=== PATIENT | male | born 1945 | race Two or more races ===

== ENCOUNTER 2024-06-16 16:38 | Inpatient (IN) | payer OTHER, MEDICAID, MEDICARE, SELFPAY ==
[2024-06-16] VITALS (10 sets, daily range): BP systolic 121–138; BP diastolic 79–86; PULSE 103–131; RESP 20–29; TEMP 37.2–39.3; O2SAT 85–94; BMI 27.2
--- NOTE | 2024-06-16 17:43 | EKG_ITS ---
[facility] Test Date: 2024-06-16 Pat Name: ARELY PAL Department: Room: - Gender: Male Switcher: : 1945 Requested By: Yayo Moses Order Number: [id number] Reading MD: Yayo Moses Measurements Intervals [place] Rate: 107 P: 15 SC: 138 QRS: -46 QRSD: 88 T: 33 QT: 334 QTc: 446 Interpretive Statements SINUS TACHYCARDIA WITH FREQUENT SUPRAVENTRICULAR PREMATURE COMPLEXES No previous ECG available for comparison /store/[email or web address]/[id number].pdf
--- NOTE | 2024-06-16 17:44 | XR_ITS ---
Examination: AP chest single view Technique one AP portable upright chest single view Exam date and time: June 16, 2024 at 1757 hrs. Indications: Sepsis today Findings: Normal heart size Moderate vascular congestion Opacity left base consistent with early pneumonia Moderate osteopenia Impression: Early pneumonia left base
--- NOTE | 2024-06-16 17:47 | EDNOTE_ITS ---
<Statement entered by Tasha Vu MD - 06/17/24 18:03> As co-signing physician, I was present and available for consult prn. I concur with the plan and care as documented by the midlevel provider. ED General RME/HPI General Chief complaint: Neuro Symptoms/Deficit Stated complaint: AMS Time Seen by Provider: 06/16/24 17:40 Arrival date/time: 06/16/24 16:38 RME / HPI RME / HPI narrative: 79-year-old male patient with significant history of CVA, with right-sided paralysis, 3 months ago was brought in from correction regarding altered mental status. Apparently patient was noted to be having altered, incident few minutes prior to ER visit severity moderate. Patient was noted to be febrile and tachycardic, sepsis sepsis alert was initiated right away. Patient was also noted to be coughing and having chest congestion. Denies any other complaints. Patient is alert and oriented x 2. No medications given prior travel. Patient was satting 86% on room air. Patient is DNR. Patient had a PEG tube feeding. Related Data Home Medications ?Medication ?Instructions ?Recorded ?Confirmed Hydrocodone/Acetaminophen * (NORCO 1 tab PO Q6H PRN PAIN #0 tabs 06/24/16 10/325 *) Meclizine CHEW * (ANTIVERT CHEW *) 25 mg PO PRN PRN DIZZINESS #0 tabs 06/24/16 captopril 25 mg tablet 25 mg PO BID #0 tabs 06/24/16 oxcarbazepine 600 mg tablet 600 mg PO BID #0 tabs 06/24/16 (Trileptal) Allergies Allergy/AdvReac Type Severity Reaction Status Date / Time NKA* Allergy Uncoded 06/08/16 15:00 Review of Systems Review of Systems Narrative Review of Systems: Review of system reviewed and within normal limits except mentioned in HPI ED Exam Narrative Physical exam: VITAL SIGNS: Reviewed. GENERAL APPEARANCE: Alert and oriented x 2, follows simple commands, no acute distress, HEAD AND FACE: Non-traumatic. ENT: PERRL, pink conjunctivitis, eyelid no trauma, Mucous membrane moist. NECK: Supple, nontender, no nuchal rigidity. CHEST: No tenderness, no crepitus, no paradoxical movement, no retractions. LUNGS: Clear, well ventilated, symmetric, no rales, no wheezing, no ronchi, no stridor, good breath sounds bilaterally. HEART: Regular rate, regular rhythm, no murmur, no gallops. ABDOMEN: Soft, positive bowel sounds, nondistended, no guarding, nontender, no rebound, no masses, RECTAL: Deferred. GENITAL: Deferred. NEUROLOGICAL: Gross motor function intact sensory function intact, Appropriate for age. MUSCULOSKELETAL: low back nontender, full range of motion. EXTREMITIES: Right upper and lower extremity with teleneurologist paralysis, left upper and lower extremity full range of motion. SKIN: Color pink, dry, no rash, no lacerations, no abrasions, no contusions. LYMPHATICS: Deferred. Course Quality Measures none Orders Category Date Time Status COVID-19 Screening Questionnaire NOW Care 06/16/24 21:53 Active Home Care Attendant STAT Care 06/16/24 17:43 Active Continuous Pulse Oximetry STAT Care 06/16/24 17:43 Completed Decision to Admit X1 Care 06/16/24 21:52 Active EKG (ED ONLY) *Do not use* NOW Care 06/16/24 17:43 Completed In and Out Catheter X1PRN Care 06/16/24 17:43 Completed Insert IV NOW Care 06/16/24 17:43 Active NPO STAT Care 06/16/24 17:43 Active Strict Intake and Output Routine Care 06/16/24 17:[address] head/brain wo con Stat Exams 06/16/24 19:43 Completed EKG (ED Only) Stat Exams 06/16/24 17:43 Draft XR chest 1V SEPSIS PROTOCOL Stat Exams 06/16/24 17:44 Completed B-Type Natriuretic Peptide Stat Lab 06/16/24 17:56 Completed Blood Culture (Lab) Stat Lab 06/16/24 17:43 Ordered CBC Stat Lab 06/16/24 17:56 Completed Comprehensive Metabolic Panel Stat Lab 06/16/24 17:56 Completed LDH (Lactate Dehydrogenase) Stat Lab 06/16/24 17:56 Completed Lactate (Lactic Acid) Stat Lab 06/16/24 17:56 Completed Lactic Acid, 3 HR Stat Lab 06/16/24 21:00 Ordered Lipase Stat Lab 06/16/24 17:56 Completed Magnesium Stat Lab 06/16/24 17:56 Completed Partial Thromboplastin Time Stat Lab 06/16/24 17:56 Completed Phosphorous Stat Lab 06/16/24 17:56 Completed Procalcitonin Stat Lab 06/16/24 17:56 Completed Prothrombin Time with INR Stat Lab 06/16/24 17:56 Completed Troponin I Stat Lab 06/16/24 17:56 Completed Urinalysis Stat Lab 06/16/24 20:30 Completed Urine Culture Stat Lab 06/16/24 20:30 Received ALBUTEROL RT 0.5ml [Proventil Rt 0.5ml] Med 06/16/24 20:09 Discontinued 2.5 mg INH X1 ONE Acetaminophen Supp [Tylenol Supp] Med 06/16/24 17:46 Discontinued 650 mg MT X1 ONE Sodium Chloride 0.9% 1000 ml [Ns] 1,000 ml Med 06/16/24 17:46 Discontinued IV 999 mls/hr Sodium Chloride Rt Gisele 0.9% [NS Rt Gisele 0.9%] Med 06/16/24 20:09 Active 3 ml INH PRN PRN cefTRIAXone/D5w 1gm IV premix [Rocephin/D5w 1gm IV Med 06/16/24 17:46 Discontinued premix] 50 ml IV X1 Code Status Routine Oth 06/16/24 17:51 Ordered Oxygen Delivery NOW RT 06/16/24 17:43 Active Vital Signs Vital signs: Vital Signs Temperature 100.8 F H 06/16/24 17:08 Pulse Rate 127 H 06/16/24 17:08 Respiratory Rate 22 H 06/16/24 17:08 Blood Pressure 138/81 H 06/16/24 17:08 Pulse Oximetry (%) 92 L 06/16/24 17:08 Oxygen Delivery Method Nasal Cannula 06/16/24 17:08 Oxygen Flow Rate 6 06/16/24 17:08 [facility] Patient data External records reviewed:: None Clinical information provided by:: patient and family Social determinants that could affect healthcare access:: none Patient has the following chronic illnesses:: Hypertension, CVA with right-sided paralysis How is presenting disease/condition affected by chronic disease/condition?: e xacerbated by Evaluation data The following diagnostics were reviewed and interpreted by me:: lab results and radiology exam(s) Lab and/or radiology exams considered but not ordered:: None Interpretation Summary: EKG showed sinus tachycardia, ventricular rate 107 bpm, no ST segment elevation depression noted. Chest x-ray showed pneumonia. Laboratory workup came back with slightly elevated lactic acid, WBC count of 17.7 magnesium 2.7 troponin slightly elevated 0.068. CT of the head came back unremarkable. Medications Medications considered but not ordered:: None Medication administrations:: Medication Administration History Sodium Chloride (Sodium Chloride Rt Gisele 0.9% 3 Ml Nebu) 3 ml INH PRN PRN PRN Reason: SOLN Stop: 07/16/24 20:08 Last Admin: 06/16/24 20:18 Dose: 3 ml Documented By: KEVIN Discontinued Medications Acetaminophen (Acetaminophen Supp 650 Mg Supp) 650 mg MT X1 ONE Stop: 06/16/24 17:47 Last Admin: 06/16/24 18:20 Dose: 650 mg Documented By: MICHELL Albuterol (Albuterol Rt 2.5 Mg/0.5 Ml Nebu) 2.5 mg INH X1 ONE Stop: 06/16/24 20:10 Last Admin: 06/16/24 20:18 Dose: 2.5 mg Documented By: KEVIN Ceftriaxone Sodium/Dextrose (Rocephin/D5w 1gm Iv Premix) 50 mls @ 100 mls/hr IV X1 ONE Stop: 06/16/24 18:15 Last Infusion: 06/16/24 19:29 Dose: Infused Documented By: Admin: 06/16/24 18:21 Dose: 100 mls/hr Documented By: MICHELL Sodium Chloride (Ns) 1,000 mls @ 999 mls/hr IV .Q1H1M ONE Stop: 06/16/24 18:46 Last Infusion: 06/16/24 19:29 Dose: Infused Documented By: Admin: 06/16/24 18:20 Dose: 999 mls/hr Documented By: MICHELL IV fluids for hydration ceftriaxone IV, albuterol breathing treatment Tylenol Consultations Consultation(s) initiated? (list below): No Diagnosis Differential Diagnosis ED Complaint MDM: Sepsis, pneumonia, UTI Most likely diagnosis given after review of the tests above:: Sepsis, pneumonia, history of CVA Admission Indicated Admission indicated?: indicated Explain why admission is indicated or not indicated:: Patient is to be admitted for further management. Admission Request Was there a request for admission?: Yes Admission Attestation Admission request attestation: Discussed case with [Dr. Lafleur] from Hospitalist service regarding admission. Discussed patients ED course, exam findings, labs, and radiology results. The Hospitalist [agrees] to accept the patient for admission. Disposition Plan Disposition Plan: Admit Medical Decision Making MDM Narrative MDM Narrative: 79-year-old male patient with significant history of CVA, with right-sided paralysis, 3 months ago was brought in from correction regarding altered mental status. Apparently patient was noted to be having altered, incident few minutes prior to ER visit severity moderate. Patient was noted to be febrile and tachycardic, sepsis sepsis alert was initiated right away. Patient was also noted to be coughing and having chest congestion. Denies any other complaints. Patient is alert and oriented x 2. No medications given prior travel. Patient was satting 86% on room air. Patient is DNR. Patient had a PEG tube feeding. CT scan of the head came back unremarkable. Chest x-ray showed early pneumonia. Laboratory workup significant for 17.7 leukocytosis. Lactic acid was noted to be 2.5. Initial troponin was noted to be 0.068. Currently patient is satting 92% on 4 L. Urinalysis no UTI Was given IV fluid, Tylenol suppository, IV ceftriaxone and IV Zithromax. Patient was also given albuterol breathing treatment. Plan of care discussed with the patient and family who agrees to be admitted. Differential Diagnosis Differential Diagnosis: Sepsis, pneumonia, UTI Lab Data 06/16/24 17:56 06/16/24 17:56 Labs: Lab Results 06/16/24 06/16/24 Range/Units 17:56 20:30 WBC 17.7 H (3.8-10.6) Thou/mm3 RBC 4.92 (4.50-5.90) Miln/mm3 Hgb 15.2 (13.5-16.0) g/dL Hct 44.9 (41.0-53.0) % MCV 91 (80-100) fL MCH 30.9 (25.0-35.0) pg MCHC 33.9 (31.0-37.0) g/dl RDW Std Deviation 47.8 H (35.1-43.9) fL Plt Count 283 (140-440) Thou/mm3 Neut % (Auto) 79 (37-80) % Lymph % (Auto) 15 (10-50) % Roosevelt % (Auto) 6 (0-12) % Eos % (Auto) 0 (0-10) % Baso % (Auto) 0 (0-2.5) % Neut # (Auto) 13.9 H (1.8-7.7) Thou/mm3 Lymph # (Auto) 2.6 (1.0-4.8) Thou/mm3 Roosevelt # (Auto) 1.0 H (0.0-0.8) Thou/mm3 Eos # (Auto) 0.0 (0.0-0.5) Thou/mm3 Baso # (Auto) 0.0 (0.0-0.2) Thou/mm3 Immature Gran # (Auto) 0.16 H (0.00-0.00) Thou/mm3 Absolute Nucleated RBC 0.00 (0.00-0.00) Thou/mm3 Immature Gran % 1 H (0-0) % Nucleated RBC % 0 (0) /100 WBC PT 12.7 H (9.0-12.2) Seconds INR 1.2 (0.9-1.3) APTT 30.3 (22.0-36.0) Seconds Sodium 154 H (136-145) mMol/L Potassium 3.7 (3.4-5.1) mMol/L Chloride 118 H (98-107) mMol/L Carbon Dioxide 24.5 (20.0-31.0) mMol/L Anion Gap 12 (7-16) BUN 44 H (9-23) mg/dL Creatinine 1.3 (0.6-1.3) mg/dL Estim Creat Clear Calc 48.4 L (>60) mL/min eGFR 56 L (60 - ) See Note BUN/Creatinine Ratio 34 H (12-20) Ratio Glucose 236 H (74-106) mg/dL Calculated Osmolality 324 H (275-295) Lactic Acid 2.5 H (0.4-2.0) mMol/L Calcium 9.8 (8.3-10.6) mg/dL Corrected Calcium 9.8 (8.5-10.1) mg/dL Phosphorus 3.0 (2.4-5.1) mg/dL Magnesium 2.7 H (1.6-2.6) mg/dL Total Bilirubin 0.6 (0.3-1.2) mg/dL AST 14 (0-34) U/L ALT 17 (10-49) U/L Alkaline Phosphatase 63 (46-116) U/L Lactate Dehydrogenase 203 (120-246) U/L Troponin I 0.068 H* (0.0-0.045) ng/mL B-Natriuretic Peptide 39 (0-100) pg/mL Total Protein 7.9 (5.7-8.2) gm/dL Albumin 4.2 (3.4-4.8) gm/dL Globulin 3.7 H (2.3-3.5) gm/dL Albumin/Globulin Ratio 1.1 L (1.2-2.2) Lipase 95 H (12-53) U/L Procalcitonin 0.28 (0.0-0.49) ng/ml Ur Collection Type Clean Catch Urine Color Yellow (Lt Yel-Yel) Urine Clarity Clear (Clear/Hazy) Urine pH 6.0 (5.0-7.0) Ur Specific Evans 1.034 (1.001-1.035) Urine Protein 1+ A (Neg - Trace) Urine Glucose (UA) Negative (Negative) Urine Ketones Negative (Negative) Urine Blood Negative (Negative) Urine Nitrite Negative (Negative) Urine Bilirubin Negative (Negative) Urine Urobilinogen (Auto) 2.0 (0.0-1.0) mg/dL Ur Leukocyte Esterase Negative (Negative) Urine RBC 0 (0-3) /hpf Urine WBC 0 (0-5) /hpf Ur Squamous Epith Cells < 1 (0-5) /hpf Urine Bacteria Rare (None) Discharge Plan Plan Patient Disposition: Admit Acute Care w/in Hospital Disposition Comment: stable Prescriptions/Referrals Prescriptions/Med Rec: No Action captopril 25 MG tablet 25 mg PO BID Qty: 0 oxcarbazepine [Trileptal] 600 MG tablet 600 mg PO BID Qty: 0 Hydrocodone/Acetaminophen * (NORCO 10/325 *) 1 TAB tablet 1 tab PO Q6H PRN (Reason: PAIN) Qty: 0 Meclizine CHEW * (ANTIVERT CHEW *) 25 MG TAB.CHEW 25 mg PO PRN PRN (Reason: DIZZINESS) Qty: 0 Referrals: Fabian Rashid MD [Primary Care Provider] - In 1 week Problem List Clinical Impression: Sepsis, Pneumonia, History of CVA with residual deficit Patient/Caregiver Discharge Instructions Discharge Activity: activity as tolerated Print Language: Danish Stand Alone Forms: Bina Award Info., Patient Portal Info Letter
[2024-06-16 18:03] LABS: Lactate (Lactic Acid) 2.5 mMol/L (0.4-2.0)
[2024-06-16 18:08] LABS: Basophils % (Auto) 0 % (0-2.5); Eosinophils % (Auto) 0 % (0-10); Hematocrit 44.9 % (41.0-53.0); Hemoglobin 15.2 g/dL (13.5-16.0); Immature Granulocytes % (Auto) 1 % (0-0); Immature Granulocytes Auto 0.16 Thou/mm3 (0.00-0.00); Lymphocytes # (Auto) 2.6 Thou/mm3 (1.0-4.8); Lymphocytes % (Auto) 15 % (10-50); Mean Corpuscular HGB Conc 33.9 g/dl (31.0-37.0); Mean Corpuscular Hemoglobin 30.9 pg (25.0-35.0); Mean Corpuscular Volume 91 fL (80-100); Monocytes % (Auto) 6 % (0-12); Neutrophils # (Auto) 13.9 Thou/mm3 (1.8-7.7); Neutrophils % (Auto) 79 % (37-80); Nucleated Red Blood Cell % 0 /100 WBC (0); Platelet Count 283 Thou/mm3 (140-440); RDW Standard Deviation 47.8 fL (35.1-43.9); Red Blood Count 4.92 Miln/mm3 (4.50-5.90); White Blood Count 17.7 Thou/mm3 (3.8-10.6)
[2024-06-16] MEDS: ACETAMINOPHEN SUPP 650 MG SUPP PR (18:20)
[2024-06-16] MEDS: SODIUM CHLORIDE 0.9% 1000 ML 1,000 ML 999 ML IV (18:20)
[2024-06-16] MEDS: cefTRIAXone/D5w 1gm IV premix 50 ML IV (18:21)
[2024-06-16 18:24] LABS: INR 1.2 (0.9-1.3); Partial Thromboplastin Time 30.3 Seconds (22.0-36.0); Prothrombin Time 12.7 Seconds (9.0-12.2)
[2024-06-16 18:35] LABS: B-Type Natriuretic Peptide 39 pg/mL (0-100)
[2024-06-16 18:44] LABS: Alanine Aminotransferase 17 U/L (10-49); Albumin, Serum 4.2 gm/dL (3.4-4.8); Albumin/Globulin Ratio 1.1 (1.2-2.2); Alkaline Phosphatase 63 U/L (46-116); Anion Gap 12 (7-16); Aspartate Amino Transferase 14 U/L (0-34); BUN/Creatinine Ratio 34 Ratio (12-20); Bilirubin,Total 0.6 mg/dL (0.3-1.2); Blood Urea Nitrogen 44 mg/dL (9-23); Calcium 9.8 mg/dL (8.3-10.6); Calcium (Corrected) 9.8 mg/dL (8.5-10.1); Carbon Dioxide 24.5 mMol/L (20.0-31.0); Chloride 118 mMol/L (98-107); Creatinine (Component) 1.3 mg/dL (0.6-1.3); Estimated Creatinine Clearance 48.4 mL/min (>60); Globulin 3.7 gm/dL (2.3-3.5); Glucose 236 mg/dL (74-106); LDH (Lactate Dehydrogenase) 203 U/L (120-246); Lipase 95 U/L (12-53); Magnesium 2.7 mg/dL (1.6-2.6); Osmolality,Calculated 324 (275-295); Potassium 3.7 mMol/L (3.4-5.1); Procalcitonin 0.28 ng/ml (0.0-0.49); Sodium 154 mMol/L (136-145); Total Protein 7.9 gm/dL (5.7-8.2); eGFR 56 See Note
[2024-06-16 18:47] LABS: Troponin I 0.068 ng/mL (0.0-0.045)
--- NOTE | 2024-06-16 19:43 | XR_ITS ---
Examination: CT brain head without contrast. 2-D sagittal coronal reconstructions Date and time of exam:June 16, 2024 at 1946 hrs. Indications: Onset altered mental status today CTDI: vol (mGy):50.7 DLP: (mGycm):1204 Technique: Multiple CT axial sections of the brain have been obtained, 5 mm slice thickness. Contrast has not been administered. 2-D sagittal, coronal reconstructions have been obtained Low dose protocols were performed. One or more of the following dose reduction techniques were used; automated exposure control, adjustment of the mA and/or KV according to patient size, use of iterative reconstruction technique. Findings: No significant ventricular enlargement. Old infarct left basal ganglia 10 mm low-density area left brainstem pontine level Intra-axial or extra-axial hemorrhage density is not seen. No mass effect or midline shift Basal cisterns are not remarkable. Fourth ventricle is midline. Cranial vault intact. Impression: Negative for acute hemorrhage, mass effect or midline shift Age indeterminate infarct left brainstem pontine level axial image 34 Consider brain MRI follow-up, stroke,
[2024-06-16] MEDS: ALBUTEROL RT 2.5 MG/0.5 ML NEBU INH (20:18)
[2024-06-16] MEDS: SODIUM CHLORIDE RT SOL 0.9% 3 ML NEBU INH (20:18)
[2024-06-16 21:00] LABS: Reflex Lactate? Y
[2024-06-16 21:02] LABS: Collection Type, Urine Clean Catch; RBC,Urine 0 /hpf (0-3); WBC,Urine 0 /hpf (0-5)
[2024-06-16 21:30] LABS: Bacteria,Urine Rare; Bilirubin,Urine Negative (Negative); Blood,Urine Negative (Negative); Clarity,Urine Clear (Clear/Hazy); Color,Urine Yellow (Lt Yel-Yel); Glucose, Urine Negative (Negative); Ketones,Urine Negative (Negative); Leukocyte Esterase,Urine Negative (Negative); Nitrite,Urine Negative (Negative); Protein,Urine 1+ (Neg - Trace); Specific Gravity,Urine 1.034 (1.001-1.035); Squamous Epithelial Cell,Urine < 1 /hpf (0-5)
[2024-06-16 22:10] LABS: Lactic Acid, 3 HR 1.6 mMol/L (0.4-2.0)
[2024-06-16] MEDS: ACETAMINOPHEN IVPB 1,000 MG/100 ML VIAL 250 MG IV (22:57)
--- NOTE | 2024-06-16 23:19 | PD.RESHP ---
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 Patient currently alert and oriented to self and birthdate, unknown baseline. Patient unable to give much history but is arousable to voice and interactable. Patient initially had rectal temp 102.8, noted to be saturating 90% on room air with lower base crackles. Most of history obtained via chart review. Of note there is a POLST form in the chart which is signed on 05/29/2024 and states that the patient is DNR with [facility] selected. A three-way call was made before the admission with official commercial relationship manager with the listed legally recognized decision-maker, Meme Dey, daughter of the patient. On the phone call Marquita Aguilar, the patient's , was also present. The family was explained the present situation which brought the patient to the hospital and his current condition. They decided that they would like to have the patient admitted and treated for pneumonia. He will remain DNR. Also of note, patient has a PEG tube despite no artificial means of nutrition on POLST being selected. It is uncertain whether the family understood this selection at the time of POLST signing. They may need to update the POLST. Will continue with tube feeds per family's current wishes. ED Course: -Initial vitals were BP 138/81, HR 127, RR 22, Temp 100.8, O2 92% -Labs significant for WBC 17.7, Na 154, Cl 118, BUN 44, glucose 324, lactic acid 2.5->1.6, troponin 0.068, procalcitonin 0.28 normal -EKG showed sinus tachycardia with frequent PVCs -CXR showed moderate vascular congestion and early left base pneumonia -Head CT showed age indeterminate infarct in the left brainstem at pontine level, likely the known stroke 3 months ago -In the ED, patient was given 1L NS IV bolus x1, acetaminophen 650 mg CO x1, ceftriaxone 1g IV x1, albuterol 2.5 mg breathing treatment -Patient was admitted for sepsis secondary to pneumonia Review of Systems Review of systems otherwise negative except what is mentioned above. Past Medical History Past Medical History Comments H COMMENT: Past Medical History: CVA 03/2024 with right-sided hemiplegia and aphasia deficits, dyphagia s/p PEG tube placement, history of PE, GERD, coccidioidomycosis, hypertension Family History: Not obtainable Surgical History: PEG tube placement Social History: Not obtainable Current Medications: Eliquis 5 mg BID, aspirin 325 mg qday, atorvastatin 80 mg qday, atorvastatin 80 mg qday, fenofibrate 145 mg qday, oxcarbazepine 300 mg BID, fluconazole 200 mg qday, amlodipine 10 mg qday, famotidine 20 mg qday, melatonin 3 mg HS prn, acetaminophen 650 mg prn, tramadol 50 mg prn, docusate 100 mg prn (Source: [facility] medication reconciliation) Allergies: No known drug allergies Exam Vital Signs Temp Pulse Resp BP Pulse Ox O2 Del Method O2 Flow Rate 100.4 F 106 H 22 H 132/82 H 93 L Nasal Cannula 4 06/16/24 22:38 06/16/24 22:38 06/16/24 22:38 06/16/24 22:38 06/16/24 22:38 06/16/24 22:38 06/16/24 22:38 Narrative Exam Physical Exam General: Asleep but arousable to voice. Speaks short phrases in Tongan. HEENT: Normocephalic, atraumatic, mucous membranes moist. Heart: Tachycardic rate and regular rhythm, no murmurs. Lungs: Bilateral lower lobe pulmonary crackles. Abdomen: Soft, nondistended, nontender, positive bowel sounds. ?No guarding or rebound tenderness. PEG tube in place with some dry discharge, no surrounding erythema or purulence. Neurologic: Alert and oriented x2, right-sided deficits at baseline, able to move left upper and lower extremities. Extremities: Mild right-sided dependent edema. Skin: No rash or ecchymoses. Results: Labs 06/25/24 05:12 06/25/24 05:12 Labs: Short CBC 06/16/24 Range/Units 17:56 WBC 17.7 H (3.8-10.6) Thou/mm3 Hgb 15.2 (13.5-16.0) g/dL Hct 44.9 (41.0-53.0) % Plt Count 283 (140-440) Thou/mm3 BMP 06/16/24 17:56 Sodium 154 H Potassium 3.7 Chloride 118 H Carbon Dioxide 24.5 BUN 44 H Creatinine 1.3 Glucose 236 H Calcium 9.8 Cardiac Enzymes 06/16/24 Range/Units 17:56 Troponin I 0.068 H* (0.0-0.045) ng/mL Liver Function 06/16/24 Range/Units 17:56 Total Bilirubin 0.6 (0.3-1.2) mg/dL AST 14 (0-34) U/L ALT 17 (10-49) U/L Alkaline Phosphatase 63 (46-116) U/L Albumin 4.2 (3.4-4.8) gm/dL Urine 06/16/24 Range/Units 20:30 Urine Color Yellow (Lt Yel-Yel) Urine Clarity Clear (Clear/Hazy) Urine pH 6.0 (5.0-7.0) Ur Specific [place] 1.034 (1.001-1.035) Urine Protein 1+ A (Neg - Trace) Urine Glucose (UA) Negative (Negative) Quality Measures Quality Measures none Advance care planning discussed with:: spouse and child Medications Home Medications and Allergies Home Medications ?Medication ?Instructions ?Recorded ?Confirmed ?Type amlodipine 10 mg tablet 10 mg feeding tube QDAY 06/17/24 06/17/24 History apixaban 5 mg tablet (Eliquis) 5 mg feeding tube BID 06/17/24 06/17/24 History aspirin 325 mg tablet 325 mg feeding tube QDAY 06/17/24 06/17/24 History atorvastatin 80 mg tablet (Lipitor) 80 mg feeding tube QDAY 06/17/24 06/17/24 History docusate sodium 100 mg tablet 100 mg PO QDAY 06/17/24 06/17/24 History famotidine 20 mg tablet 20 mg feeding tube QDAY 06/17/24 06/17/24 History fenofibrate nanocrystallized 145 145 mg QDAY 06/17/24 06/17/24 History mg tablet fluconazole 200 mg tablet 200 mg feeding tube QDAY 06/17/24 06/17/24 History guaifenesin 600 mg tablet, 600 mg PO Q12H 06/17/24 06/17/24 History extended release 12 hr melatonin 3 mg tablet 3 mg PO HS PRN Insomnia 06/17/24 06/17/24 History oxcarbazepine 300 mg tablet 300 mg feeding tube BID 06/17/24 06/17/24 History tramadol 50 mg tablet 50 mg feeding tube Q6H PRN pain 6-9 06/17/24 06/17/24 History Allergies Allergy/AdvReac Type Severity Reaction Status Date / Time No Known Allergies Allergy Verified 06/17/24 10:29 Visit Medications Acetaminophen (Ofirmev Inj) 1,000 mg in 100 mls @ 250 mls/hr IV Q6HR RE Stop: 06/17/24 18:23 Last Admin: 06/16/24 22:57 Dose: 250 mls/hr Sodium Chloride (Sodium Chloride Rt Gisele 0.9% 3 Ml Nebu) 3 ml INH PRN PRN PRN Reason: SOLN Stop: 07/16/24 20:08 Last Admin: 06/16/24 20:18 Dose: 3 ml Discontinued Medications Acetaminophen (Acetaminophen Supp 650 Mg Supp) 650 mg CO X1 ONE Stop: 06/16/24 17:47 Last Admin: 06/16/24 18:20 Dose: 650 mg Albuterol (Albuterol Rt 2.5 Mg/0.5 Ml Nebu) 2.5 mg INH X1 ONE Stop: 06/16/24 20:10 Last Admin: 06/16/24 20:18 Dose: 2.5 mg Ceftriaxone Sodium/Dextrose (Rocephin/D5w 1gm Iv Premix) 50 mls @ 100 mls/hr IV X1 ONE Stop: 06/16/24 18:15 Last Infusion: 06/16/24 19:29 Dose: Infused Sodium Chloride (Ns) 1,000 mls @ 999 mls/hr IV .Q1H1M ONE Stop: 06/16/24 18:46 Last Infusion: 06/16/24 19:29 Dose: Infused Assessment & Plan Plan 79-year-old Tongan-speaking male with past medical 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 Patient was found to be septic secondary to pneumonia and admitted for further management. #Sepsis, secondary to community acquired pneumonia Patient met 4/4 SIRS criteria with leukocytosis, tachycardia, tachypnea, and fever, with source pneumonia. Patient was hypoxic, not previously on oxygen. UA was negative. Procal was negative. COVID negative. -Started ceftriaxone 1 g IV qday -Started azithromycin 500 mg qday -DuoNebs ipratropium and levalbuterol q6h scheduled -Blood cultures pending -Sputum culture ordered -MRSA screen pending -RSV, flu ordered -Chest physiotherapy -Titrate oxygen as tolerated to maintain saturations >93% #Hypernatremia On admission sodium was 154, osmolality quite high at 324. Possibly secondary to dehydration. Patient did get 1L NS in ED. Free water deficit is calculated at 4.3L. -D5W at 140 ml/hr with q6h glucose checks -Q4h sodium checks -Resume tube feeds with free water flushes in AM #Hyperglycemia Initial glucose 236. No listed history of diabetes in patient's SNF chart. -A1c pending -Bedside blood glucose checks q6h -Insulin sliding scale sensitive, adjusted as necessary #Elevated troponin #Likely NSTEMI type 2 demand ischemia On ED evaluation troponin 0.068, likely secondary to sepsis. EKG no ST-T abnormalities -Trend troponin AM level #History of coccidioidomycosis Patient has fluconazole 200 mg qday listed as home medication, started on admission to the SNF on 05/29/2024 and listed as precribed for 6 month course. -Continue fluconazole 200 mg qday -Obtain Cocci IgM and IgG with titers #History of CVA with right sided residual deficits Head CT shows old stroke in the left brainstem pontine area consistent with patient's current baseline neurologic status. -Continue home aspirin 81 mg qday -Continue home atorvastatin 80 mg HS -Lipid panel ordered #History of hypertension On amlodipine 10 qday. -Hold home medication due to sepsis, resume if BP become elevated #History of PE Unknown when patient was diagnosed with PE. -Continue home Eliquis 5 mg BID #Dysphagia s/p G-tube placement Placed after patient had stroke 3 months back resulting in residual dysphagia. -Consulted electrician control equipment -Resume tube feeds in AM per facility, patient on Jevity with 240 ml free water flushes q6h DVT prophylaxis: Eliquis 5 mg BID GI prophylaxis: Pantoprazole 40 mg IV daily Diet: NPO, tube feeds to be resumed [place]h: None Lines: Peripheral IV Antibiotics: Ceftriaxone [06/16- ], azithromycin [06/17- ] CODE STATUS: DNR per POLST and current family wishes, continue with selective treatments. Reason for hospitalization: Sepsis secondary to community acquired pneumonia Patient plan of care was discussed with the attending physician, Dr. Martin. Candida Lafleur, PGY-2 Attending Provider Attestation/Addendum I have discussed and was present for the essential components of the history, physical examination, diagnosis, and treatment plan with the resident. I agree with the patient's care as documented by the resident and amended herein by me. Matthias Martin DO. Although this document has been carefully reviewed, there may still be some phonetic and other typographical errors. These errors are purely grammatical due to imperfections in the software program and should not be construed in any way to compromise the substance of the patient's medical care during this visit.
[2024-06-17] VITALS (13 sets, daily range): BP systolic 119–154; BP diastolic 74–114; PULSE 75–110; RESP 17–26; TEMP 36.2–36.8; O2SAT 90–100; BMI 27.2
[2024-06-17 00:40] LABS: Sodium 156 mMol/L (136-145)
[2024-06-17] MEDS: AZITHROMYCIN INJ 500 MG in SODIUM CHLORIDE 0.9% 250 ML 250 ML 250 MG IV (00:55)
[2024-06-17] MEDS: APIXABAN 2.5 MG TABLET 5 MG GT ×3 (00:56→20:16)
[2024-06-17] MEDS: INSULIN LISPRO (AdmeLOG) 1 UNIT/0.01 ML UNIT SC ×5 (00:56→23:44)
[2024-06-17] MEDS: LEVALBUTEROL RT 0.63 MG/3 ML NEBU INH ×4 (01:05→18:40)
[2024-06-17] MEDS: IPRATROPIUM RT 0.5 MG/ 2.5 ML NEBU INH ×4 (01:05→18:40)
--- NOTE | 2024-06-17 01:32 | PC.RT ---
Attempted to perform sputum induction w/10% saline but pt would not allow mask near his face or even blow-by. After numerous attempts at giving him his tx's I stopped trying. Maybe if pt is more alert he will be more willing to take the tx's and the sputum induction can be successfully done.
[2024-06-17 04:09] LABS: Basophils % (Auto) 0 % (0-2.5); Eosinophils % (Auto) 0 % (0-10); Hematocrit 41.9 % (41.0-53.0); Immature Granulocytes % (Auto) 1 % (0-0); Immature Granulocytes Auto 0.07 Thou/mm3 (0.00-0.00); Lymphocytes # (Auto) 2.5 Thou/mm3 (1.0-4.8); Lymphocytes % (Auto) 18 % (10-50); Mean Corpuscular HGB Conc 33.4 g/dl (31.0-37.0); Mean Corpuscular Hemoglobin 30.9 pg (25.0-35.0); Mean Corpuscular Volume 93 fL (80-100); Monocytes # (Auto) 0.8 Thou/mm3 (0.0-0.8); Monocytes % (Auto) 6 % (0-12); Neutrophils # (Auto) 10.4 Thou/mm3 (1.8-7.7); Neutrophils % (Auto) 75 % (37-80); Nucleated Red Blood Cell % 0 /100 WBC (0); Platelet Count 241 Thou/mm3 (140-440); Red Blood Count 4.53 Miln/mm3 (4.50-5.90); White Blood Count 13.8 Thou/mm3 (3.8-10.6)
[2024-06-17 04:32] LABS: Glucose Estimated Average 108 mg/dL (80-131); Hemoglobin A1C 5.4 % Hgb (4.8-6.0)
[2024-06-17 04:36] LABS: Anion Gap 9 (7-16); BUN/Creatinine Ratio 42 Ratio (12-20); Blood Urea Nitrogen 42 mg/dL (9-23); Calcium 9.3 mg/dL (8.3-10.6); Carbon Dioxide 26.3 mMol/L (20.0-31.0); Cardiac Risk Estimate 3.9 RATIO (4.0-6.7); Chloride 121 mMol/L (98-107); Cholesterol 112 mg/dL (132-200); Estimated Creatinine Clearance 62.9 mL/min (>60); Glucose 179 mg/dL (74-106); HDL Cholesterol 29 mg/dL (40-60); LDL Cholesterol,Calculated 55 mg/dL (0-130); Magnesium 2.6 mg/dL (1.6-2.6); Osmolality,Calculated 323 (275-295); Phosphorous 3.7 mg/dL (2.4-5.1); Potassium 3.6 mMol/L (3.4-5.1); Sodium 156 mMol/L (136-145); Triglycerides 139 mg/dL (30-150); eGFR > 60 See Note
[2024-06-17 04:42] LABS: Troponin I 0.059 ng/mL (0.0-0.045)
[2024-06-17] MEDS: DEXTROSE 5%-WATER 1,000 ML 140 ML IV ×3 (04:57→22:42)
[2024-06-17] MEDS: ACETAMINOPHEN IVPB 1,000 MG/100 ML VIAL 250 MG IV ×3 (05:39→18:22)
[2024-06-17] MEDS: PANTOPRAZOLE INJ 40 MG VIAL IVP (08:01)
[2024-06-17] MEDS: FAMOTIDINE 20 MG TABLET GT (08:01)
--- NOTE | 2024-06-17 09:57 | XR_ITS ---
Examination: AP chest single view Technique one AP portable upright chest single view Exam date and time: June 17, 2024 at 1009 hrs. Comparison June 16, 2024 Findings: The film is rotated RPO The remaining findings suspicious for mild left base pneumonia No major cardiac enlargement Ectatic thoracic aorta Moderate osteopenia Impression: The remaining findings suspicious for mild left base pneumonia
[2024-06-17] MEDS: ASPIRIN 81 MG CHEW GT (10:08)
[2024-06-17] MEDS: FLUCONAZOLE SUSP 40 MG/ML ML 200 MG GT (10:08)
[2024-06-17 10:18] LABS: Allen Test Performed/OK; Base Excess 1 (-3-3); HCO3 25 mEq/L (20-26); Inspired O2, VO2 Liters 5 L/min; Inspired Oxygen, FIO2 21 %; O2 Saturation 96 % (91-98); PCO2 35 mmHg (32.0-48.0); PO2 73 mmHg (83-108); Puncture Site Right Radial; pH, Arterial 7.46 (7.35-7.45)
--- NOTE | 2024-06-17 11:10 | PC.SS ---
Patient is a resident at [facility]. Patient was admitted for sepsis/pneumonia. SS spoke to daughter, Rosario, who confirmed she is the alt medical decision maker for patient. Patient will return to facility upon discharge. Patient has a peg tube. POLST form indicates DNR. Patient has blood cultures pending per physician. Hx: CVA. Patient will need gurney transport upon discharge. Dr. Rashid is PCP at facility.
[2024-06-17 11:12] LABS: Respiratory Syncytial Virus Ag Negative (Negative)
[2024-06-17 11:13] LABS: Influenza A Ag Negative; Influenza B Ag Negative
[2024-06-17 14:45] LABS: Sodium 153 mMol/L (136-145)
[2024-06-17 14:46] LABS: Cocci Serology, IgM Negative (Negative)
--- NOTE | 2024-06-17 15:03 | PD.RESPRO ---
Documentation for date of: 06/17/24 Subjective Subjective Interval history: No overnight events. Patient seen and examined at bedside. Initially patient was increasingly altered, responsive to pain, not verbally communicative. Able to localize pain. Patient had episode of desaturation requiring O2 via oxy mask at 15 L/min. Condition self resolved, patient able to be titrated back down to 5 L/min, saturating above 92%. ABG and chest x-ray unremarkable. Patient was examined later that day, A&O x 2, appropriately responsive. Continue D5W, sodium checks for hypernatremia. Continue IV antibiotics. Exam Vital Signs Temp Pulse Resp BP Pulse Ox O2 Del Method O2 Flow Rate 98 F 96 23 H 124/75 92 L Oxy Mask 10 06/17/24 12:00 06/17/24 12:38 06/17/24 12:38 06/17/24 12:00 06/17/24 12:38 06/17/24 12:00 06/17/24 12:38 Narrative Exam PE: Gen: Well-developed and well-nourished. HEENT: NCAT, PERRLA, EOMI, MMM, anicteric conjunctivae. CVS: normal S1 and S2. RRR. No M/R/G. Resp: Mild crackles lateral lower lung loaj. Abd: soft, non-tender, non-distended. BS+ in all 4 quadrants. MSK: Good ROM in LUE & LLE. No edema or rash. Neuro: CN II-XII grossly intact. Strength 5/5 in LUE & LLE. Alert and oriented x2. Right-sided deficits, baseline. Psych: appropriate mood and affect. Objective Labs 06/17/24 03:53 06/17/24 16:46 Labs: Laboratory Results - last 24 hr 06/16/24 06/16/24 06/16/24 17:56 20:30 21:50 WBC 17.7 H RBC 4.92 Hgb 15.2 Hct 44.9 MCV 91 MCH 30.9 MCHC 33.9 RDW Std Deviation 47.8 H Plt Count 283 Neut % (Auto) 79 Lymph % (Auto) 15 [place] % (Auto) 6 Eos % (Auto) 0 Baso % (Auto) 0 Neut # (Auto) 13.9 H Lymph # (Auto) 2.6 [place] # (Auto) 1.0 H Eos # (Auto) 0.0 Baso # (Auto) 0.0 Immature Gran # (Auto) 0.16 H Absolute Nucleated RBC 0.00 Immature Gran % 1 H Nucleated RBC % 0 PT 12.7 H INR 1.2 APTT 30.3 Puncture Site ABG pH ABG pCO2 ABG pO2 ABG HCO3 ABG O2 Saturation ABG Base Excess Oxygen Liter Flow FiO2 Sodium 154 H Potassium 3.7 Chloride 118 H Carbon Dioxide 24.5 Anion Gap 12 BUN 44 H Creatinine 1.3 Estim Creat Clear Calc 48.4 L eGFR 56 L BUN/Creatinine Ratio 34 H Glucose [address] Glu mg/dL Hemoglobin A1c Calculated Osmolality 324 H Lactic Acid 2.5 H 1.6 Calcium 9.8 Corrected Calcium 9.8 Phosphorus 3.0 Magnesium 2.7 H Total Bilirubin 0.6 AST 14 ALT 17 Alkaline Phosphatase 63 Lactate Dehydrogenase 203 Troponin I 0.068 H* B-Natriuretic Peptide 39 Total Protein 7.9 Albumin 4.2 Globulin 3.7 H Albumin/Globulin Ratio 1.1 L Triglycerides Cholesterol LDL Cholesterol, Calc HDL Cholesterol Cholesterol/HDL Ratio Lipase 95 H Procalcitonin 0.28 Ur Collection Type Clean Catch Urine Color Yellow Urine Clarity Clear Urine pH 6.0 Ur Specific [place] 1.034 Urine Protein 1+ A Urine Glucose (UA) Negative Urine Ketones Negative Urine Blood Negative Urine Nitrite Negative Urine Bilirubin Negative Urine Urobilinogen (Auto) 2.0 Ur Leukocyte Esterase Negative Urine RBC 0 Urine WBC 0 Ur Squamous Epith Cells < 1 Urine Bacteria Rare Coccidioides IgM Ab Influenza A (Rapid) Influenza B (Rapid) RSV Rapid 06/16/24 06/17/24 06/17/24 23:52 03:53 10:10 WBC 13.8 H RBC 4.53 Hgb 14.0 Hct 41.9 MCV 93 MCH 30.9 MCHC 33.4 RDW Std Deviation 48.0 H Plt Count 241 D Neut % (Auto) 75 Lymph % (Auto) 18 [place] % (Auto) 6 Eos % (Auto) 0 Baso % (Auto) 0 Neut # (Auto) 10.4 H Lymph # (Auto) 2.5 [place] # (Auto) 0.8 Eos # (Auto) 0.0 Baso # (Auto) 0.0 Immature Gran # (Auto) 0.07 H Absolute Nucleated RBC 0.00 Immature Gran % 1 H Nucleated RBC % 0 PT INR APTT Puncture Site Right Radial ABG pH 7.46 H ABG pCO2 35 ABG pO2 73 L ABG HCO3 25 ABG O2 Saturation 96 ABG Base Excess 1 Oxygen Liter Flow 5 FiO2 21 Sodium 156 H 156 H Potassium 3.6 Chloride 121 H* Carbon Dioxide 26.3 Anion Gap 9 BUN 42 H Creatinine 1.0 Estim Creat Clear Calc 62.9 eGFR > 60 BUN/Creatinine Ratio 42 H Glucose [address] Glu mg/dL 108 Hemoglobin A1c 5.4 Calculated Osmolality 323 H Lactic Acid Calcium 9.3 Corrected Calcium Phosphorus 3.7 Magnesium 2.6 Total Bilirubin AST ALT Alkaline Phosphatase Lactate Dehydrogenase Troponin I 0.059 H* B-Natriuretic Peptide Total Protein Albumin Globulin Albumin/Globulin Ratio Triglycerides 139 Cholesterol 112 L LDL Cholesterol, Calc 55 HDL Cholesterol 29 L Cholesterol/HDL Ratio 3.9 L Lipase Procalcitonin Ur Collection Type Urine Color Urine Clarity Urine pH Ur Specific [place] Urine Protein Urine Glucose (UA) Urine Ketones Urine Blood Urine Nitrite Urine Bilirubin Urine Urobilinogen (Auto) Ur Leukocyte Esterase Urine RBC Urine WBC Ur Squamous Epith Cells Urine Bacteria Coccidioides IgM Ab Negative Influenza A (Rapid) Influenza B (Rapid) RSV Rapid 06/17/24 06/17/24 10:23 13:28 WBC RBC Hgb Hct MCV MCH MCHC RDW Std Deviation Plt Count Neut % (Auto) Lymph % (Auto) [place] % (Auto) Eos % (Auto) Baso % (Auto) Neut # (Auto) Lymph # (Auto) [place] # (Auto) Eos # (Auto) Baso # (Auto) Immature Gran # (Auto) Absolute Nucleated RBC Immature Gran % Nucleated RBC % PT INR APTT Puncture Site ABG pH ABG pCO2 ABG pO2 ABG HCO3 ABG O2 Saturation ABG Base Excess Oxygen Liter Flow FiO2 Sodium 153 H Potassium Chloride Carbon Dioxide Anion Gap BUN Creatinine Estim Creat Clear Calc eGFR BUN/Creatinine Ratio Glucose Estimated Ave Glu mg/dL Hemoglobin A1c Calculated Osmolality Lactic Acid Calcium Corrected Calcium Phosphorus Magnesium Total Bilirubin AST ALT Alkaline Phosphatase Lactate Dehydrogenase Troponin I B-Natriuretic Peptide Total Protein Albumin Globulin Albumin/Globulin Ratio Triglycerides Cholesterol LDL Cholesterol, Calc HDL Cholesterol Cholesterol/HDL Ratio Lipase Procalcitonin Ur Collection Type Urine Color Urine Clarity Urine pH Ur Specific [place] Urine Protein Urine Glucose (UA) Urine Ketones Urine Blood Urine Nitrite Urine Bilirubin Urine Urobilinogen (Auto) Ur Leukocyte Esterase Urine RBC Urine WBC Ur Squamous Epith Cells Urine Bacteria Coccidioides IgM Ab Influenza A (Rapid) Negative Influenza B (Rapid) Negative RSV Rapid Negative ABG Interpretation ABG results: 06/17/24 10:10 ABG pH 7.46 H ABG pCO2 35 ABG pO2 73 L ABG HCO3 25 ABG O2 Saturation 96 ABG Base Excess 1 Quality Measures Quality Measures none Advance care planning discussed with:: patient Assessment & Plan Assessment Current Active Medications: Generic Name Dose Route Start Last Admin Trade Name Freq PRN Reason Stop Dose Admin Acetaminophen 650 mg 06/17/24 18:00 Acetaminophen Gisele 325 Mg/10 Ml Udc GT 07/17/24 17:59 Q6HR PRN Pain 1-10 Or Fever > 100.4 Apixaban 5 mg 06/16/24 23:45 06/17/24 08:01 Apixaban 2.5 Mg Tablet GT 07/16/24 23:44 5 mg BID RE Administration Aspirin 81 mg 06/17/24 09:30 06/17/24 10:08 Aspirin 81 Mg Chew GT 07/17/24 09:29 81 mg QDAY RE Administration Atorvastatin Calcium 80 mg 06/17/24 21:00 Atorvastatin Calcium 20 Mg Tablet GT 07/17/24 20:59 HS RE Azithromycin 500 mg 06/17/24 21:00 Azithromycin 250 Mg Tablet PO 06/20/24 23:33 HS RE Dextrose 25 ml 06/16/24 23:43 Dextrose 50%-Water Inj 50 Ml Syringe IV 07/16/24 23:42 Q15MIN PRN BG 50-70 responsive npo pt Dextrose 50 ml 06/16/24 23:43 Dextrose 50%-Water Inj 50 Ml Syringe IV 07/16/24 23:42 Q15MIN PRN BG <50 OR BG <70 & pt unresponsive Fluconazole 200 mg 06/17/24 09:00 06/17/24 10:08 Fluconazole Susp 40 Mg/Ml Ml GT 06/24/24 08:59 200 mg QDAY RE Administration Glucagon 1 mg 06/16/24 23:43 Glucagon Inj 1 Mg Vial IM Q15MIN PRN BG <70, and no IV access Acetaminophen 1,000 mg in 100 mls @ 250 mls/hr 06/16/24 22:46 06/17/24 11:33 Ofirmev Inj IV 06/17/24 18:23 250 mls/hr Q6HR RE Administration Ceftriaxone Sodium/Dextrose 50 mls @ 100 mls/hr 06/17/24 21:00 Rocephin/D5w 1gm Iv Premix IV 06/24/24 20:59 QDAY@2100 RE Dextrose 1,000 mls @ 140 mls/hr 06/17/24 04:48 06/17/24 14:22 D5w IV 07/17/24 04:47 140 mls/hr .Q7H9M RE Administration Insulin Glargine 10 unit 06/17/24 21:00 Insulin Glargine (Lantus) 5 Unit/0.05 Ml (Per 5 Units) SC 07/17/24 20:59 HS RE Insulin Human Lispro 0 unit 06/17/24 00:00 06/17/24 11:33 Insulin Lispro (Admelog) 1 Unit/0.01 Ml Unit SC 07/17/24 00:00 2 unit Q6HR RE Administration Protocol Ipratropium [place] 0.5 mg 06/17/24 01:00 06/17/24 12:37 Ipratropium Rt 0.5 Mg/ 2.5 Ml Nebu INH 07/17/24 00:59 0.5 mg Q6HRRT RE Administration Levalbuterol HCl 0.63 mg 06/17/24 01:00 06/17/24 12:37 Levalbuterol Rt 0.63 Mg/3 Ml Nebu INH 07/17/24 00:59 0.63 mg Q6HRRT RE Administration Ondansetron HCl 4 mg 06/16/24 23:14 Ondansetron Inj 2 Mg/Ml Inj 2 Ml IV 07/16/24 23:13 Q6H PRN NAUSEA OR VOMITING Protocol Pantoprazole Sodium 40 mg 06/17/24 09:00 06/17/24 08:01 Pantoprazole Inj 40 Mg Vial IVP 07/17/24 08:59 40 mg QDAY RE Administration Sodium Chloride 3 ml 06/16/24 20:09 06/16/24 20:18 Sodium Chloride Rt Gisele 0.9% 3 Ml Nebu INH 07/16/24 20:08 3 ml PRN PRN Administration SOLN Plan 79-year-old Yi-speaking male with 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 #Sepsis, secondary to community acquired pneumonia Patient met 4/4 SIRS criteria with leukocytosis, tachycardia, tachypnea, and fever, with source pneumonia. Patient was hypoxic, not previously on oxygen. UA was negative. Procal was negative. COVID negative. Flu and RSV negative. -Started ceftriaxone 1 g IV qday -Started azithromycin 500 mg qday -DuoNebs ipratropium and levalbuterol q6h scheduled -Blood cultures pending, sputum culture pending -MRSA screen pending -Chest physiotherapy -Titrate oxygen as tolerated to maintain saturations >93% #Hypernatremia On admission sodium was 154, osmolality quite high at 324. Possibly secondary to dehydration. Patient did get 1L NS in ED. Free water deficit is calculated at 4.3L. -D5W at 140 ml/hr with q6h glucose checks -Q4h sodium checks -Consider resuming tube feeds with free water flushes #Hyperglycemia Initial glucose 236. No listed history of diabetes in patient's SNF chart. A1c 5.4% -Bedside blood glucose checks q6h -Insulin sliding scale sensitive, adjusted as necessary #NSTEMI type 2 demand ischemia On ED evaluation troponin 0.068, likely secondary to sepsis. EKG no ST-T abnormalities. Troponin peaked at 0.068. -Telemonitoring, med/telemetry #History of coccidioidomycosis Patient has fluconazole 200 mg qday listed as home medication, started on admission to the SNF on 05/29/2024 and listed as precribed for 6 month course. Cocci IgM negative 06/16/24. -Continue fluconazole 200 mg qday #History of CVA with right sided residual deficits Head CT shows old stroke in the left brainstem pontine area consistent with patient's current baseline neurologic status. -Continue home aspirin 81 mg qday -Continue home atorvastatin 80 mg HS #History of hypertension On amlodipine 10 qday. -Hold home medication due to sepsis, resume if BP become elevated #History of PE Unknown when patient was diagnosed with PE. -Continue home Eliquis 5 mg BID #Dysphagia s/p G-tube placement Placed after patient had stroke 3 months back resulting in residual dysphagia. Per facility, patient on Jevity with 240 ml free water flushes q6h. -Consulted health plan specialist -Consider resuming tube feeds DVT prophylaxis: Eliquis GI prophylaxis: Protonix Diet: N.p.o. Lines: Peripheral IV Code status: DNR Plan of care discussed with attending Dr. Barron. Jcarlos Aguayo MD PGY?1 Attending Provider Attestation/Addendum I have examined the patient, reviewed labs and imaging findings, discussed the case with the resident(s), and reviewed entered orders. I agree with the plan of care as outlined in this note, with these additional summaries/recommendations: Patient seen at bedside. Patient admitted overnight for sepsis secondary to community-acquired pneumonia. Chest x-ray showed pneumonia left base. Patient received fluid resuscitation in the ED and evidence of endorgan damage with KARY. We will continue IV Rocephin and azithromycin. Blood, urine, and sputum cultures taken, follow-up results when available. Continue Tylenol as needed for fever. Leukocytosis improving. Lactic acidosis present on admission has now resolved. Patient was found to have hyperosmolar hypernatremia most likely secondary to dehydration. Likely more acute than chronic. Sodium 153 this morning and we will continue D5W at 140 cc/h and continue to trend sodium. We will also consult dietary to resume tube feeds and free water flushes recommendations. Patient has history of CVA with right-sided residual deficits and PEG tube placement. 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 Continue basal bolus insulin for diabetes mellitus type 2. Continue home aspirin, atorvastatin, and Eliquis for history of CVA. Troponin elevated on admission although likely secondary to demand ischemia in the setting of sepsis. Troponin peaked at 0.068 and has downtrended. Continue to monitor. Repeat hematology and chemistry panel in AM. Dr. Barron
[2024-06-17 17:13] LABS: Sodium 152 mMol/L (136-145)
[2024-06-17] MEDS: INSULIN GLARGINE (Lantus) 5 UNIT/0.05 ML (PER 5 UNITS) 10 UNIT SC (20:14)
[2024-06-17] MEDS: AZITHROMYCIN 250 MG TABLET 500 MG PO (20:15)
[2024-06-17] MEDS: cefTRIAXone/D5w 1gm IV premix 50 ML IV (20:16)
[2024-06-17] MEDS: ATORVASTATIN CALCIUM 20 MG TABLET 80 MG GT (20:16)
[2024-06-17 21:23] LABS: Sodium 150 mMol/L (136-145)
[2024-06-18] VITALS (11 sets, daily range): BP systolic 114–127; BP diastolic 71–82; PULSE 72–94; RESP 14–97; TEMP 36.6–36.8; O2SAT 93–100; BMI 27.1
[2024-06-18] MEDS: LEVALBUTEROL RT 0.63 MG/3 ML NEBU INH ×4 (00:50→19:21)
[2024-06-18] MEDS: IPRATROPIUM RT 0.5 MG/ 2.5 ML NEBU INH ×4 (00:50→19:21)
[2024-06-18 01:20] LABS: Sodium 150 mMol/L (136-145)
[2024-06-18] MEDS: ACETAMINOPHEN SOL 325 MG/10 ML UDC 650 MG GT ×3 (05:00→21:21)
[2024-06-18] MEDS: INSULIN LISPRO (AdmeLOG) 1 UNIT/0.01 ML UNIT SC (05:12)
[2024-06-18] MEDS: DEXTROSE 5%-WATER 1,000 ML 140 ML IV (05:32)
[2024-06-18 06:12] LABS: Basophils % (Auto) 0 % (0-2.5); Eosinophils # (Auto) 0.2 Thou/mm3 (0.0-0.5); Eosinophils % (Auto) 2 % (0-10); Hematocrit 36.6 % (41.0-53.0); Hemoglobin 12.2 g/dL (13.5-16.0); Immature Granulocytes % (Auto) 0 % (0-0); Immature Granulocytes Auto 0.04 Thou/mm3 (0.00-0.00); Lymphocytes % (Auto) 22 % (10-50); Mean Corpuscular HGB Conc 33.3 g/dl (31.0-37.0); Mean Corpuscular Volume 93 fL (80-100); Monocytes # (Auto) 0.5 Thou/mm3 (0.0-0.8); Monocytes % (Auto) 5 % (0-12); Neutrophils # (Auto) 6.4 Thou/mm3 (1.8-7.7); Neutrophils % (Auto) 71 % (37-80); Nucleated Red Blood Cell % 0 /100 WBC (0); Platelet Count 204 Thou/mm3 (140-440); RDW Standard Deviation 47.1 fL (35.1-43.9); Red Blood Count 3.94 Miln/mm3 (4.50-5.90)
[2024-06-18 06:42] LABS: Anion Gap 9 (7-16); BUN/Creatinine Ratio 39 Ratio (12-20); Blood Urea Nitrogen 31 mg/dL (9-23); Calcium 8.6 mg/dL (8.3-10.6); Carbon Dioxide 25.2 mMol/L (20.0-31.0); Chloride 114 mMol/L (98-107); Creatinine (Component) 0.8 mg/dL (0.6-1.3); Estimated Creatinine Clearance 78.6 mL/min (>60); Glucose 153 mg/dL (74-106); Magnesium 2.4 mg/dL (1.6-2.6); Osmolality,Calculated 303 (275-295); Phosphorous 2.8 mg/dL (2.4-5.1); Potassium 3.2 mMol/L (3.4-5.1); Sodium 148 mMol/L (136-145); eGFR > 60 See Note
[2024-06-18] MEDS: PANTOPRAZOLE INJ 40 MG VIAL IVP (08:47)
[2024-06-18] MEDS: APIXABAN 2.5 MG TABLET 5 MG GT ×2 (08:47→21:22)
[2024-06-18] MEDS: ASPIRIN 81 MG CHEW GT (08:47)
[2024-06-18] MEDS: FLUCONAZOLE SUSP 40 MG/ML ML 200 MG GT (08:47)
[2024-06-18 09:48] LABS: Sodium 146 mMol/L (136-145)
[2024-06-18] MEDS: POTASSIUM CHLORIDE 10% 20 MEQ/15 ML UDC 40 MEQ GT (10:34)
[2024-06-18] MEDS: DOXYCYCLINE INJ 100 MG in SODIUM CHLORIDE 0.9% (P) 100 ML IV ×2 (10:34→22:23)
--- NOTE | 2024-06-18 10:37 | PC.SS ---
SS follow up note; Tube feeds today. Cultures pending.
--- NOTE | 2024-06-18 11:55 | PCS.ST ---
Clinical swallow Evaluation completed. See report for details. Improved swallow function. Recommend VFSS to r/o silent aspiration and assess pharyngeal function.
--- NOTE | 2024-06-18 13:35 | ESPR_ITS ---
<Statement entered by Zachariah George MD - 06/18/24 14:21> Patient was seen and examined at the bedside this morning. Patient is more alert and was breathing well on 4 L NC. Will start tube feedings as per recommendations by dietitian. We are continuing with IV ceftriaxone and started on doxycycline as sputum cultures are 1 out of 2 blood cultures grew GPC. Will favor final cultures. Potassium was repleted as K was 3.2. Kidney functions remained stable. Will continue with current management. Although the patient was asking for food and we ordered speech and nurse swallow screen However patient has a PEG tube and will be started on PEG tube feeds. All labs and orders were reviewed. I saw and examined the patient, and I agree with current management stated by Dr Olivier MD,PGY1. Plan of care was discussed with the attending physician and resident physician. Disclaimer: Despite multiple revisions, due to the dictation software being used, the document bellow may not be free of grammatical errors including phonetic/typographic errors. However, this does not deter from our commitment to providing health care in the patient's best interest in mind. Dr. Doris MD, PGY 2 Documentation for date of: 06/18/24 Exam Vital Signs Temp Pulse Resp BP Pulse Ox O2 Del Method O2 Flow Rate 97.9 F 79 14 124/78 99 Room Air 3 06/18/24 12:00 06/18/24 12:58 06/18/24 12:58 06/18/24 12:00 06/18/24 12:58 06/18/24 12:00 06/18/24 12:58 Narrative Exam PE: Gen: Well-developed and well-nourished. HEENT: NCAT, PERRLA, EOMI, MMM, anicteric conjunctivae. CVS: normal S1 and S2. RRR. No M/R/G. Resp: Mild crackles lateral lower lung loja. Abd: soft, non-tender, non-distended. BS+ in all 4 quadrants. MSK: Good ROM in LUE & LLE. No edema or rash. Neuro: CN II-XII grossly intact. Strength 5/5 in LUE & LLE. Alert and oriented x2. Right-sided deficits, baseline. Psych: appropriate mood and affect. Objective Labs 06/19/24 04:50 06/19/24 04:50 Labs: Laboratory Results - last 24 hr 06/16/24 06/17/24 06/17/24 23:52 13:28 16:46 WBC RBC Hgb Hct MCV MCH MCHC RDW Std Deviation Plt Count Neut % (Auto) Lymph % (Auto) [place] % (Auto) Eos % (Auto) Baso % (Auto) Neut # (Auto) Lymph # (Auto) [place] # (Auto) Eos # (Auto) Baso # (Auto) Immature Gran # (Auto) Absolute Nucleated RBC Immature Gran % Nucleated RBC % Sodium 153 H 152 H Potassium Chloride Carbon Dioxide Anion Gap BUN Creatinine Estim Creat Clear Calc eGFR BUN/Creatinine Ratio Glucose Calculated Osmolality Calcium Phosphorus Magnesium Coccidioides IgM Ab Negative 06/17/24 06/18/24 06/18/24 21:02 00:58 05:07 WBC 9.0 RBC 3.94 L Hgb 12.2 L Hct 36.6 L MCV 93 MCH 31.0 MCHC 33.3 RDW Std Deviation 47.1 H Plt Count 204 D Neut % (Auto) 71 Lymph % (Auto) 22 [place] % (Auto) 5 Eos % (Auto) 2 Baso % (Auto) 0 Neut # (Auto) 6.4 Lymph # (Auto) 2.0 [place] # (Auto) 0.5 Eos # (Auto) 0.2 Baso # (Auto) 0.0 Immature Gran # (Auto) 0.04 H Absolute Nucleated RBC 0.00 Immature Gran % 0 Nucleated RBC % 0 Sodium 150 H 150 H 148 H Potassium 3.2 L Chloride 114 H Carbon Dioxide 25.2 Anion Gap 9 BUN 31 H Creatinine 0.8 Estim Creat Clear Calc 78.6 eGFR > 60 BUN/Creatinine Ratio 39 H Glucose 153 H Calculated Osmolality 303 H Calcium 8.6 Phosphorus 2.8 Magnesium 2.4 Coccidioides IgM Ab 06/18/24 08:51 WBC RBC Hgb Hct MCV MCH MCHC RDW Std Deviation Plt Count Neut % (Auto) Lymph % (Auto) [place] % (Auto) Eos % (Auto) Baso % (Auto) Neut # (Auto) Lymph # (Auto) [place] # (Auto) Eos # (Auto) Baso # (Auto) Immature Gran # (Auto) Absolute Nucleated RBC Immature Gran % Nucleated RBC % Sodium 146 H Potassium Chloride Carbon Dioxide Anion Gap BUN Creatinine Estim Creat Clear Calc eGFR BUN/Creatinine Ratio Glucose Calculated Osmolality Calcium Phosphorus Magnesium Coccidioides IgM Ab ABG Interpretation ABG results: 06/17/24 10:10 ABG pH 7.46 H ABG pCO2 35 ABG pO2 73 L ABG HCO3 25 ABG O2 Saturation 96 ABG Base Excess 1 Quality Measures Quality Measures VTE prophylaxis Advance care planning discussed with:: patient Assessment & Plan Assessment Current Active Medications: Generic Name Dose Route Start Last Admin Trade Name Freq PRN Reason Stop Dose Admin Acetaminophen 650 mg 06/18/24 04:59 06/18/24 05:00 Acetaminophen Gisele 325 Mg/10 Ml Udc GT 07/18/24 04:58 650 mg Q6HR PRN Administration Pain 1-10 Or Fever > 100.4 Apixaban 5 mg 06/16/24 23:45 06/18/24 08:47 Apixaban 2.5 Mg Tablet GT 07/16/24 23:44 5 mg BID RE Administration Aspirin 81 mg 06/17/24 09:30 06/18/24 08:47 Aspirin 81 Mg Chew GT 07/17/24 09:29 81 mg QDAY RE Administration Atorvastatin Calcium 80 mg 06/17/24 21:00 06/17/24 20:16 Atorvastatin Calcium 20 Mg Tablet GT 07/17/24 20:59 80 mg HS RE Administration Dextrose 25 ml 06/16/24 23:43 Dextrose 50%-Water Inj 50 Ml Syringe IV 07/16/24 23:42 Q15MIN PRN BG 50-70 responsive npo pt Dextrose 50 ml 06/16/24 23:43 Dextrose 50%-Water Inj 50 Ml Syringe IV 07/16/24 23:42 Q15MIN PRN BG <50 OR BG <70 & pt unresponsive Fluconazole 200 mg 06/17/24 09:00 06/18/24 08:47 Fluconazole Susp 40 Mg/Ml Ml GT 06/24/24 08:59 200 mg QDAY RE Administration Glucagon 1 mg 06/16/24 23:43 Glucagon Inj 1 Mg Vial IM Q15MIN PRN BG <70, and no IV access Ceftriaxone Sodium/Dextrose 50 mls @ 100 mls/hr 06/17/24 21:00 06/17/24 20:16 Rocephin/D5w 1gm Iv Premix IV 06/24/24 20:59 100 mls/hr QDAY@2100 RE Administration Doxycycline Hyclate 100 mg/ 100 mls @ 100 mls/hr 06/18/24 09:00 06/18/24 10:34 Sodium Chloride IV 06/25/24 08:59 100 mls/hr BID RE Administration Insulin Glargine 10 unit 06/17/24 21:00 06/17/24 20:14 Insulin Glargine (Lantus) 5 Unit/0.05 Ml (Per 5 Units) SC 07/17/24 20:59 10 unit HS RE Administration Insulin Human Lispro 0 unit 06/17/24 00:00 06/18/24 12:52 Insulin Lispro (Admelog) 1 Unit/0.01 Ml Unit SC 07/17/24 00:00 Not Given Q6HR RE Protocol Ipratropium Willis 0.5 mg 06/17/24 01:00 06/18/24 12:55 Ipratropium Rt 0.5 Mg/ 2.5 Ml Nebu INH 07/17/24 00:59 0.5 mg Q6HRRT RE Administration Levalbuterol HCl 0.63 mg 06/17/24 01:00 06/18/24 12:55 Levalbuterol Rt 0.63 Mg/3 Ml Nebu INH 07/17/24 00:59 0.63 mg Q6HRRT RE Administration Ondansetron HCl 4 mg 06/16/24 23:14 Ondansetron Inj 2 Mg/Ml Inj 2 Ml IV 07/16/24 23:13 Q6H PRN NAUSEA OR VOMITING Protocol Pantoprazole Sodium 40 mg 06/17/24 09:00 06/18/24 08:47 Pantoprazole Inj 40 Mg Vial IVP 07/17/24 08:59 40 mg QDAY RE Administration Sodium Chloride 3 ml 06/16/24 20:09 06/16/24 20:18 Sodium Chloride Rt Gisele 0.9% 3 Ml Nebu INH 07/16/24 20:08 3 ml PRN PRN Administration SOLN Plan 79-year-old [place]ian-speaking male with 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 #Sepsis, resolved #Community acquired pneumonia Patient met 4/4 SIRS criteria with leukocytosis, tachycardia, tachypnea, and fever, with source pneumonia. Patient was hypoxic, not previously on oxygen. UA was negative. Procal was negative. COVID negative. Flu and RSV negative. -Started ceftriaxone 1 g IV qday -Started azithromycin 500 mg qday -DuoNebs ipratropium and levalbuterol q6h scheduled -Blood cultures pending, sputum culture pending -MRSA screen pending -Chest physiotherapy -Titrate oxygen as tolerated to maintain saturations >93% #Hypernatremia On admission sodium was 154, osmolality quite high at 324. Possibly secondary to dehydration. Patient did get 1L NS in ED. Free water deficit is calculated at 4.3L. Patient received D5W at 140 ml/hr with q6h glucose checks. Sodium improved to 146, D5W was stopped. Patient resuming previous PEG tube diet with water flushes. -Q4h sodium checks -Resuming tube feeds with free water flushes #Hyperglycemia Initial glucose 236. No listed history of diabetes in patient's SNF chart. A1c 5.4% -Bedside blood glucose checks q6h -Insulin sliding scale sensitive, adjust as necessary #NSTEMI type 2 demand ischemia On ED evaluation troponin 0.068, likely secondary to sepsis. EKG no ST-T abnormalities. Troponin peaked at 0.068. -Telemonitoring, med/telemetry #History of coccidioidomycosis Patient has fluconazole 200 mg qday listed as home medication, started on admission to the SNF on 05/29/2024 and listed as precribed for 6 month course. Cocci IgM negative 06/16/24. Cocci IgG positive. -Continue fluconazole 200 mg qday #History of CVA with right sided residual deficits Head CT shows old stroke in the left brainstem pontine area consistent with patient's current baseline neurologic status. -Continue home aspirin 81 mg qday -Continue home atorvastatin 80 mg HS #History of hypertension On amlodipine 10 qday. -Hold home medication due to sepsis, resume if BP become elevated #History of PE Unknown when patient was diagnosed with PE. -Continue home Eliquis 5 mg BID #Dysphagia s/p G-tube placement Placed after patient had stroke 3 months back resulting in residual dysphagia. Per facility, patient on Jevity with 240 ml free water flushes q6h. -Consulted curing machine operator, appreciate recs -Resumed tube feeds DVT prophylaxis: Eliquis GI prophylaxis: Protonix Diet: PEG tube feeds Lines: Peripheral IV Code status: DNR Plan of care discussed with senior resident Dr. George PGY?[address] Barron. Jcarlos Aguayo MD PGY?1 Attending Provider Attestation/Addendum I have examined the patient, reviewed labs and imaging findings, discussed the case with the resident(s), and reviewed entered orders. I agree with the plan of care as outlined in this note, with these additional summaries/recommendations: Patient seen at bedside. No acute overnight events. Patient admitted for sepsis secondary to community-acquired pneumonia. Chest x-ray showed pneumonia left base. Patient received fluid resuscitation in the ED and evidence of endorgan damage with KARY. We will continue IV Rocephin and azithromycin. 1 of 2 blood cxs showing GPC although likely contamination. Urine culture pending. Sputum culture pending as well. Leukocytosis improving/resolving. Lactic acidosis present on admission has now resolved. Patient was found to have hyperosmolar hypernatremia most likely secondary to dehydration. Likely more acute than chronic. Sodium 146 this morning and we will discontinue D5W. Dietary following and patient resumed on tube feeds and free water flushes. Patient has history of CVA with right-sided residual deficits and PEG tube placement. 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 Continue basal bolus insulin for diabetes mellitus type 2. Continue home aspirin, atorvastatin, and Eliquis for history of CVA. Troponin elevated on admission although likely secondary to demand ischemia in the setting of sepsis. Troponin peaked at 0.068 and has downtrended. Continue to monitor. Repeat hematology and chemistry panel in AM. Dr. Barron
[2024-06-18 14:38] LABS: Cocci Serology, IgG Positive (Negative)
[2024-06-18 14:38] LABS: Cocid Sro, CF/ID (UCD) NO CHG* See Sep Rpt
[2024-06-18 14:39] LABS: Sodium 148 mMol/L (136-145)
[2024-06-18 17:59] LABS: Sodium 147 mMol/L (136-145)
[2024-06-18 20:11] LABS: Sodium 144 mMol/L (136-145)
[2024-06-18] MEDS: cefTRIAXone/D5w 1gm IV premix 50 ML IV (21:21)
[2024-06-18] MEDS: INSULIN GLARGINE (Lantus) 5 UNIT/0.05 ML (PER 5 UNITS) 10 UNIT SC (21:22)
[2024-06-18] MEDS: ATORVASTATIN CALCIUM 20 MG TABLET 80 MG GT (21:22)
[2024-06-18] MEDS: GABAPENTIN 100 MG CAPSULE GT (23:47)
[2024-06-19] VITALS (7 sets, daily range): BP systolic 122–146; BP diastolic 61–82; PULSE 72–93; RESP 18–26; TEMP 36.1–36.7; O2SAT 92–100
[2024-06-19] MEDS: IPRATROPIUM RT 0.5 MG/ 2.5 ML NEBU INH ×2 (00:19→06:26)
[2024-06-19] MEDS: LEVALBUTEROL RT 0.63 MG/3 ML NEBU INH ×2 (00:19→06:26)
[2024-06-19] MEDS: ACETAMINOPHEN SOL 325 MG/10 ML UDC 650 MG GT (03:38)
[2024-06-19 05:20] LABS: Creatinine,Random Urine 116 mg/dL (30-125); Potassium,Urine Random 42 mMol/L (12-62)
[2024-06-19 06:48] LABS: Basophils % (Auto) 0 % (0-2.5); Eosinophils # (Auto) 0.2 Thou/mm3 (0.0-0.5); Eosinophils % (Auto) 2 % (0-10); Hematocrit 34.9 % (41.0-53.0); Hemoglobin 12.5 g/dL (13.5-16.0); Immature Granulocytes % (Auto) 1 % (0-0); Immature Granulocytes Auto 0.05 Thou/mm3 (0.00-0.00); Lymphocytes # (Auto) 1.9 Thou/mm3 (1.0-4.8); Lymphocytes % (Auto) 21 % (10-50); Mean Corpuscular HGB Conc 35.8 g/dl (31.0-37.0); Mean Corpuscular Hemoglobin 32.8 pg (25.0-35.0); Mean Corpuscular Volume 92 fL (80-100); Monocytes # (Auto) 0.4 Thou/mm3 (0.0-0.8); Monocytes % (Auto) 4 % (0-12); Neutrophils # (Auto) 6.4 Thou/mm3 (1.8-7.7); Neutrophils % (Auto) 72 % (37-80); Nucleated Red Blood Cell % 0 /100 WBC (0); Platelet Count 228 Thou/mm3 (140-440); RDW Standard Deviation 44.7 fL (35.1-43.9); Red Blood Count 3.81 Miln/mm3 (4.50-5.90); White Blood Count 8.9 Thou/mm3 (3.8-10.6)
[2024-06-19 07:18] LABS: Anion Gap 9 (7-16); BUN/Creatinine Ratio 33 Ratio (12-20); Blood Urea Nitrogen 23 mg/dL (9-23); Calcium 8.8 mg/dL (8.3-10.6); Carbon Dioxide 22.8 mMol/L (20.0-31.0); Chloride 113 mMol/L (98-107); Creatinine (Component) 0.7 mg/dL (0.6-1.3); Estimated Creatinine Clearance 89.8 mL/min (>60); Glucose 147 mg/dL (74-106); Magnesium 2.2 mg/dL (1.6-2.6); Osmolality,Calculated 295 (275-295); Phosphorous 2.2 mg/dL (2.4-5.1); Potassium 3.7 mMol/L (3.4-5.1); Sodium 145 mMol/L (136-145); eGFR > 60 See Note
--- NOTE | 2024-06-19 08:50 | PC.NURSE ---
[facility] [employer] downtime occurred on 06/19/24 from 0100 to 0700.
[2024-06-19 09:01] LABS: Sodium 144 mMol/L (136-145)
[2024-06-19] MEDS: ASPIRIN 81 MG CHEW GT (09:23)
[2024-06-19] MEDS: APIXABAN 2.5 MG TABLET 5 MG GT ×2 (09:23→20:43)
[2024-06-19] MEDS: DOXYCYCLINE INJ 100 MG in SODIUM CHLORIDE 0.9% (P) 100 ML IV ×2 (09:23→20:57)
[2024-06-19] MEDS: PANTOPRAZOLE INJ 40 MG VIAL IVP (09:23)
[2024-06-19] MEDS: FLUCONAZOLE SUSP 40 MG/ML ML 200 MG GT (09:24)
[2024-06-19] MEDS: OXCARBazepine 150 MG TABLET (NON-FORMULARY) 300 MG PO ×2 (09:24→20:44)
[2024-06-19] MEDS: POTASSIUM PHOS 22.5 MMOL in SODIUM CHLORIDE 0.9% 500 ML 500 ML 82.778 MMOL IV (09:25)
[2024-06-19] MEDS: cefTRIAXone/D5w 2gm 2 GM/50 ML BAG IV (11:37)
[2024-06-19] MEDS: INSULIN LISPRO (AdmeLOG) 1 UNIT/0.01 ML UNIT SC ×2 (12:56→18:15)
--- NOTE | 2024-06-19 13:20 | ESPR_ITS ---
<Statement entered by Zachariah George MD - 06/19/24 15:16> Patient was seen and examined at the bedside. Patient reported to have mild shortness of breath. Electrolytes were repleted. Patient's 1 out of 2 blood cultures growing GPC therefore repeat blood cultures were ordered. Sputum culture also growing GPC. We changed Rocephin to 2 g once daily and will continue with doxycycline 100 mg IV twice daily. No fever spikes were recorded overnight. White count is within normal limits. Patient's was contacted and she will come to the hospital to sign new POLST form. Hyponatremia resolved. Patient is tolerating tube feeds well. All labs and orders were reviewed. I saw and examined the patient, and I agree with current management stated by Dr Pooja MD,PGY1. Plan of care was discussed with the attending physician and resident physician. Disclaimer: Despite multiple revisions, due to the dictation software being used, the document bellow may not be free of grammatical errors including phonetic/typographic errors. However, this does not deter from our commitment to providing health care in the patient's best interest in mind. Dr. Kacey MD, PGY 2 Documentation for date of: 06/19/24 Subjective Subjective Interval history: No overnight events. Patient seen and examined at bedside. Patient resting comfortably, denies fevers, chills, chest pain, shortness of breath. Saturating well on room air. Patient receiving Rocephin and Doxy for GPC bacteremia. Repeat blood cultures drawn. Spoke to patient's over the phone, she will come into hospital to send new POLST. Exam Vital Signs Temp Pulse Resp BP Pulse Ox O2 Del Method O2 Flow Rate 96.9 F 76 18 146/82 H 99 Room Air 6 06/19/24 12:06/19/24 12:06/19/24 12:06/19/24 12:06/19/24 12:06/19/24 12:06/19/24 06:26 Narrative Exam PE: Gen: Well-developed and well-nourished. HEENT: NCAT, PERRLA, EOMI, MMM, anicteric conjunctivae. CVS: normal S1 and S2. RRR. No M/R/G. Resp: Lungs clear to auscultation bilaterally. Abd: soft, non-tender, non-distended. BS+ in all 4 quadrants. MSK: Good ROM in LUE & LLE. No edema or rash. Neuro: CN II-XII grossly intact. Strength 5/5 in LUE & LLE. Alert and oriented x2. Right-sided deficits, baseline. Psych: appropriate mood and affect. Objective Labs 06/19/24 04:50 06/19/24 08:22 Labs: Laboratory Results - last 24 hr 06/16/24 06/18/24 06/18/24 23:52 13:20 17:20 WBC RBC Hgb Hct MCV MCH MCHC RDW Std Deviation Plt Count Neut % (Auto) Lymph % (Auto) [place] % (Auto) Eos % (Auto) Baso % (Auto) Neut # (Auto) Lymph # (Auto) [place] # (Auto) Eos # (Auto) Baso # (Auto) Immature Gran # (Auto) Absolute Nucleated RBC Immature Gran % Nucleated RBC % Sodium 148 H 147 H Potassium Chloride Carbon Dioxide Anion Gap BUN Creatinine Estim Creat Clear Calc eGFR BUN/Creatinine Ratio Glucose Calculated Osmolality Calcium Phosphorus Magnesium Ur Random Creatinine Ur Random Sodium Ur Random Potassium Ur Random Chloride Coccidioides IgG Ab Positive A 06/18/24 06/19/24 06/19/24 19:51 00:15 04:50 WBC 8.9 RBC 3.81 L Hgb 12.5 L Hct 34.9 L MCV 92 MCH 32.8 MCHC 35.8 RDW Std Deviation 44.7 H Plt Count 228 Neut % (Auto) 72 Lymph % (Auto) 21 [place] % (Auto) 4 Eos % (Auto) 2 Baso % (Auto) 0 Neut # (Auto) 6.4 Lymph # (Auto) 1.9 [place] # (Auto) 0.4 Eos # (Auto) 0.2 Baso # (Auto) 0.0 Immature Gran # (Auto) 0.05 H Absolute Nucleated RBC 0.00 Immature Gran % 1 H Nucleated RBC % 0 Sodium 144 145 Potassium 3.7 D Chloride 113 H Carbon Dioxide 22.8 Anion Gap 9 BUN 23 Creatinine 0.7 Estim Creat Clear Calc 89.8 eGFR > 60 BUN/Creatinine Ratio 33 H Glucose 147 H Calculated Osmolality 295 Calcium 8.8 Phosphorus 2.2 L Magnesium 2.2 Ur Random Creatinine 116 Ur Random Sodium 108.0 Ur Random Potassium 42 Ur Random Chloride 57.0 Coccidioides IgG Ab 06/19/24 08:22 WBC RBC Hgb Hct MCV MCH MCHC RDW Std Deviation Plt Count Neut % (Auto) Lymph % (Auto) [place] % (Auto) Eos % (Auto) Baso % (Auto) Neut # (Auto) Lymph # (Auto) [place] # (Auto) Eos # (Auto) Baso # (Auto) Immature Gran # (Auto) Absolute Nucleated RBC Immature Gran % Nucleated RBC % Sodium 144 Potassium Chloride Carbon Dioxide Anion Gap BUN Creatinine Estim Creat Clear Calc eGFR BUN/Creatinine Ratio Glucose Calculated Osmolality Calcium Phosphorus Magnesium Ur Random Creatinine Ur Random Sodium Ur Random Potassium Ur Random Chloride Coccidioides IgG Ab ABG Interpretation ABG results: 06/17/24 10:10 ABG pH 7.46 H ABG pCO2 35 ABG pO2 73 L ABG HCO3 25 ABG O2 Saturation 96 ABG Base Excess 1 Quality Measures Quality Measures VTE prophylaxis Advance care planning discussed with:: patient and spouse Assessment & Plan Assessment Current Active Medications: Generic Name Dose Route Start Last Admin Trade Name Freq PRN Reason Stop Dose Admin Acetaminophen 650 mg 06/18/24 04:59 06/19/24 03:38 Acetaminophen Gisele 325 Mg/10 Ml Udc GT 07/18/24 04:58 650 mg Q6HR PRN Administration Pain 1-10 Or Fever > 100.4 Apixaban 5 mg 06/16/24 23:45 06/19/24 09:23 Apixaban 2.5 Mg Tablet GT 07/16/24 23:44 5 mg BID RE Administration Aspirin 81 mg 06/17/24 09:30 06/19/24 09:23 Aspirin 81 Mg Chew GT 07/17/24 09:29 81 mg QDAY RE Administration Atorvastatin Calcium 80 mg 06/17/24 21:00 06/18/24 21:22 Atorvastatin Calcium 20 Mg Tablet GT 07/17/24 20:59 80 mg HS RE Administration Dextrose 25 ml 06/16/24 23:43 Dextrose 50%-Water Inj 50 Ml Syringe IV 07/16/24 23:42 Q15MIN PRN BG 50-70 responsive npo pt Dextrose 50 ml 06/16/24 23:43 Dextrose 50%-Water Inj 50 Ml Syringe IV 07/16/24 23:42 Q15MIN PRN BG <50 OR BG <70 & pt unresponsive Fluconazole 200 mg 06/17/24 09:00 06/19/24 09:24 Fluconazole Susp 40 Mg/Ml Ml GT 06/24/24 08:59 200 mg QDAY RE Administration Glucagon 1 mg 06/16/24 23:43 Glucagon Inj 1 Mg Vial IM Q15MIN PRN BG <70, and no IV access Guaifenesin 100 mg 06/19/24 10:28 Guaifenesin Syrup 200 Mg/10 Ml Udc GT 07/19/24 10:27 QID PRN COUGH Protocol Doxycycline Hyclate 100 mg/ 100 mls @ 100 mls/hr 06/18/24 09:00 06/19/24 09:23 Sodium Chloride IV 06/25/24 08:59 100 mls/hr BID RE Administration Potassium Phosphate 22.5 mmol/ 507.5 mls @ 82.778 mls/hr 06/19/24 08:15 06/19/24 09:25 Sodium Chloride IV 06/19/24 14:22 82.778 mls/hr X1 ONE Administration Ceftriaxone Sodium/Dextrose 2 gm in 50 mls @ 100 mls/hr 06/19/24 11:00 06/19/24 11:37 Rocephin/D5w 2gm IV 06/26/24 10:59 100 mls/hr QDAY RE Administration Insulin Glargine 10 unit 06/17/24 21:00 06/18/24 21:22 Insulin Glargine (Lantus) 5 Unit/0.05 Ml (Per 5 Units) SC 07/17/24 20:59 10 unit HS RE Administration Insulin Human Lispro 0 unit 06/17/24 00:00 06/19/24 12:56 Insulin Lispro (Admelog) 1 Unit/0.01 Ml Unit SC 07/17/24 00:00 1 unit Q6HR RE Administration Protocol Ipratropium Era 0.5 mg 06/17/24 01:00 06/19/24 06:26 Ipratropium Rt 0.5 Mg/ 2.5 Ml Nebu INH 07/17/24 00:59 0.5 mg Q6HRRT RE Administration Levalbuterol HCl 0.63 mg 06/17/24 01:00 06/19/24 06:26 Levalbuterol Rt 0.63 Mg/3 Ml Nebu INH 07/17/24 00:59 0.63 mg Q6HRRT RE Administration Magnesium Hydroxide 30 ml 06/19/24 10:35 Milk Of Magnesia Susp 30 Ml Udc GT 07/19/24 10:34 QDAY PRN CONSTIPATION Protocol Ondansetron HCl 4 mg 06/16/24 23:14 Ondansetron Inj 2 Mg/Ml Inj 2 Ml IV 07/16/24 23:13 Q6H PRN NAUSEA OR VOMITING Protocol Oxcarbazepine 300 mg 06/19/24 09:00 06/19/24 09:24 Oxcarbazepine 150 Mg Tablet (Non-Formulary) PO 07/19/24 08:59 300 mg BID RE Administration Pantoprazole Sodium 40 mg 06/17/24 09:00 06/19/24 09:23 Pantoprazole Inj 40 Mg Vial IVP 07/17/24 08:59 40 mg QDAY RE Administration Sennosides 8.8 mg 06/19/24 10:35 Sennosides Syrup 8.8 Mg/5 Ml Udc GT 07/19/24 10:34 QDAY PRN CONSTIPATION Protocol Sodium Chloride 3 ml 06/16/24 20:09 06/16/24 20:18 Sodium Chloride Rt Gisele 0.9% 3 Ml Nebu INH 07/16/24 20:08 3 ml PRN PRN Administration SOLN Plan 79-year-old Indonesian-speaking male with 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 on 06/16/2024 due to altered mental status, fever, tachycardia, cough, and chest congestion, admitted for sepsis secondary to pneumonia. #Sepsis, resolved #Community acquired pneumonia Patient met 4/4 SIRS criteria with leukocytosis, tachycardia, tachypnea, and fever, with source pneumonia. Patient was hypoxic, not previously on oxygen. UA was negative. Procal was negative. COVID negative. Flu and RSV negative. Blood and sputum culture grew GPC. Repeat blood cultures drawn. Awaiting speciation. Patient azithromycin changed to doxycycline, Rocephin increased to 2 g daily. -Started ceftriaxone 2 g IV qday -Doxycycline 100 mg IV twice daily -DuoNebs ipratropium and levalbuterol q6h scheduled -Blood cultures pending, sputum culture pending -MRSA screen pending -Chest physiotherapy -Titrate oxygen as tolerated to maintain saturations >93% #Hypernatremia, resolved On admission sodium was 154, osmolality quite high at 324. Possibly secondary to dehydration. Patient did get 1L NS in ED. Free water deficit is calculated at 4.3L. Patient received D5W at 140 ml/hr with q6h glucose checks. Sodium improved to 146, D5W was stopped. Patient resuming previous PEG tube diet with water flushes. -Monitor daily labs -Resuming tube feeds with free water flushes #Hyperglycemia Initial glucose 236. No listed history of diabetes in patient's SNF chart. A1c 5.4% -Bedside blood glucose checks q6h -Insulin sliding scale sensitive, adjust as necessary #NSTEMI type 2 demand ischemia On ED evaluation troponin 0.068, likely secondary to sepsis. EKG no ST-T abnormalities. Troponin peaked at 0.068. -Telemonitoring, med/telemetry #History of coccidioidomycosis Patient has fluconazole 200 mg qday listed as home medication, started on admission to the SNF on 05/29/2024 and listed as precribed for 6 month course. Cocci IgM negative 06/16/24. Cocci IgG positive. -Continue fluconazole 200 mg qday #History of CVA with right sided residual deficits Head CT shows old stroke in the left brainstem pontine area consistent with patient's current baseline neurologic status. 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 -Hold home medication due to sepsis, resume if BP become elevated #History of PE Unknown when patient was diagnosed with PE. -Continue home Eliquis 5 mg BID #Dysphagia s/p G-tube placement Placed after patient had stroke 3 months back resulting in residual dysphagia. Per facility, patient on Jevity with 240 ml free water flushes q6h. -Consulted pattern grader, appreciate recs -Resumed tube feeds DVT prophylaxis: Eliquis GI prophylaxis: Protonix Diet: PEG tube feeds Lines: Peripheral IV Code status: DNR Plan of care discussed with senior resident Dr. George PGY?[address] Barron. Jcarlos Aguayo MD PGY?1 Attending Provider Attestation/Addendum I have examined the patient, reviewed labs and imaging findings, discussed the case with the resident(s), and reviewed entered orders. I agree with the plan of care as outlined in this note, with these additional summaries/recommendations: Patient seen at bedside. No acute overnight events. Patient admitted for sepsis secondary to community-acquired pneumonia. Chest x-ray showed pneumonia left base. Patient received fluid resuscitation in the ED and evidence of endorgan damage with KARY. We will continue IV Rocephin and azithromycin. 1 of 2 blood cxs showing GPC although likely contamination. Repeat blood cxs ordered. Sputum culture showing GPC. Leukocytosis resolved. Lactic acidosis present on admission has now resolved. Patient was found to have hyperosmolar hypernatremia most likely secondary to dehydration. Likely more acute than chronic. Sodiumnow within normal limits and on free water flushes via PEG tube. Dietary following and patient resumed on tube feeds. Patient has history of CVA with right-sided residual deficits and PEG tube placement. 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 Continue basal bolus insulin for diabetes mellitus type 2. Continue home aspirin, atorvastatin, and Eliquis for history of CVA. Troponin elevated on admission although likely secondary to demand ischemia in the setting of sepsis. Troponin peaked at 0.068 and has downtrended. Continue to monitor. Repeat hematology and chemistry panel in AM. Dr. Barron
[2024-06-19] MEDS: ATORVASTATIN CALCIUM 20 MG TABLET 80 MG GT (20:43)
[2024-06-19] MEDS: INSULIN GLARGINE (Lantus) 5 UNIT/0.05 ML (PER 5 UNITS) 10 UNIT SC (21:10)
[2024-06-19] MEDS: QUEtiapine FUMARATE 25 MG TABLET GT (22:02)
[2024-06-20] VITALS (10 sets, daily range): BP systolic 107–139; BP diastolic 64–85; PULSE 76–90; RESP 16–21; TEMP 36–37.2; O2SAT 94–97; BMI 27.1
[2024-06-20] MEDS: ACETAMINOPHEN SOL 325 MG/10 ML UDC 650 MG GT ×2 (06:12→17:44)
[2024-06-20 06:44] LABS: Basophils % (Auto) 0 % (0-2.5); Eosinophils # (Auto) 0.1 Thou/mm3 (0.0-0.5); Eosinophils % (Auto) 2 % (0-10); Hematocrit 33.4 % (41.0-53.0); Hemoglobin 11.7 g/dL (13.5-16.0); Immature Granulocytes % (Auto) 0 % (0-0); Immature Granulocytes Auto 0.03 Thou/mm3 (0.00-0.00); Lymphocytes # (Auto) 1.1 Thou/mm3 (1.0-4.8); Lymphocytes % (Auto) 15 % (10-50); Mean Corpuscular Hemoglobin 31.4 pg (25.0-35.0); Mean Corpuscular Volume 90 fL (80-100); Monocytes # (Auto) 0.3 Thou/mm3 (0.0-0.8); Monocytes % (Auto) 4 % (0-12); Neutrophils # (Auto) 5.6 Thou/mm3 (1.8-7.7); Neutrophils % (Auto) 79 % (37-80); Nucleated Red Blood Cell % 0 /100 WBC (0); Platelet Count 217 Thou/mm3 (140-440); RDW Standard Deviation 43.5 fL (35.1-43.9); Red Blood Count 3.73 Miln/mm3 (4.50-5.90); White Blood Count 7.2 Thou/mm3 (3.8-10.6)
[2024-06-20 07:23] LABS: Alanine Aminotransferase 14 U/L (10-49); Albumin, Serum 3.3 gm/dL (3.4-4.8); Albumin/Globulin Ratio 1.2 (1.2-2.2); Alkaline Phosphatase 65 U/L (46-116); Anion Gap 9 (7-16); Aspartate Amino Transferase 14 U/L (0-34); BUN/Creatinine Ratio 20 Ratio (12-20); Bilirubin,Total 0.4 mg/dL (0.3-1.2); Blood Urea Nitrogen 14 mg/dL (9-23); Calcium 8.8 mg/dL (8.3-10.6); Calcium (Corrected) 9.4 mg/dL (8.5-10.1); Carbon Dioxide 23.9 mMol/L (20.0-31.0); Chloride 113 mMol/L (98-107); Creatinine (Component) 0.7 mg/dL (0.6-1.3); Estimated Creatinine Clearance 89.8 mL/min (>60); Globulin 2.8 gm/dL (2.3-3.5); Glucose 117 mg/dL (74-106); Magnesium 2.1 mg/dL (1.6-2.6); Osmolality,Calculated 292 (275-295); Phosphorous 2.1 mg/dL (2.4-5.1); Potassium 3.3 mMol/L (3.4-5.1); Sodium 146 mMol/L (136-145); Total Protein 6.1 gm/dL (5.7-8.2); eGFR > 60 See Note
[2024-06-20] MEDS: PANTOPRAZOLE INJ 40 MG VIAL IVP (08:52)
[2024-06-20] MEDS: DOXYCYCLINE INJ 100 MG in SODIUM CHLORIDE 0.9% (P) 100 ML IV ×2 (08:53→20:58)
[2024-06-20] MEDS: POTASSIUM CHLORIDE 10% 20 MEQ/15 ML UDC 40 MEQ GT (08:54)
[2024-06-20] MEDS: cefTRIAXone/D5w 2gm 2 GM/50 ML BAG IV (08:54)
[2024-06-20] MEDS: FLUCONAZOLE SUSP 40 MG/ML ML 200 MG GT (08:54)
[2024-06-20] MEDS: APIXABAN 2.5 MG TABLET 5 MG GT ×2 (08:55→20:50)
[2024-06-20] MEDS: OXCARBazepine 150 MG TABLET (NON-FORMULARY) 300 MG PO ×2 (08:55→20:51)
[2024-06-20] MEDS: ASPIRIN 81 MG CHEW GT (08:55)
[2024-06-20] MEDS: SENNOSIDES SYRUP 8.8 MG/5 ML UDC GT (08:56)
[2024-06-20] MEDS: SODIUM CHLORIDE 0.9% IV (10:59)
[2024-06-20] MEDS: POTASSIUM PHOS IV (10:59)
[2024-06-20] MEDS: amLODIPine BESYLATE 5 MG TABLET 10 MG GT (11:05)
--- NOTE | 2024-06-20 11:28 | PC.SS ---
Rounding: Pending rpt blood cultures, currently on IV ABX
[2024-06-20] MEDS: INSULIN LISPRO (AdmeLOG) 1 UNIT/0.01 ML UNIT SC (12:16)
--- NOTE | 2024-06-20 13:27 | ESPR_ITS ---
<Statement entered by Zachariah George MD - 06/20/24 14:15> Patient was seen and examined at the bedside this morning. Overnight, patient received Seroquel due to agitation. We schedule Seroquel for night. Potassium was repleted as well as phosphorus. Repeat blood cultures were pending. Will continue with Rocephin and diclofenac pneumonia and cocci. Will await for repeat blood cultures as 1 out of 2 blood culture was GPC. Sodium improved. Continue water flushes with tube feedings. All labs and orders were reviewed. I saw and examined the patient, and I agree with current management stated by Dr Olivier MD,PGY1. Plan of care was discussed with the attending physician and resident physician. Disclaimer: Despite multiple revisions, due to the dictation software being used, the document bellow may not be free of grammatical errors including phonetic/typographic errors. However, this does not deter from our commitment to providing health care in the patient's best interest in mind. Dr. Doris MD, PGY 2 Documentation for date of: 06/20/24 Subjective Subjective Interval history: Overnight: Patient was agitated, given Seroquel 25 mg x 1. Patient remained agitated, had to be restrained temporarily. Patient seen and examined at bedside. Patient was agitated, pulling at lines. Suspect hospital induced delirium. Mitten placed on left hand to prevent pulling of lines. Pending repeat blood cultures. Continue IV antibiotics. Seroquel scheduled for delirium. Monitor sodium. Exam Vital Signs Temp Pulse Resp BP Pulse Ox O2 Del Method O2 Flow Rate 97.0 F 86 18 107/69 97 Room Air 6 06/20/24 08:00 06/20/24 11:05 06/20/24 08:00 06/20/24 11:05 06/20/24 08:00 06/20/24 08:00 06/19/24 06:26 Narrative Exam PE: Gen: Well-developed and well-nourished. HEENT: NCAT, PERRLA, EOMI, MMM, anicteric conjunctivae. CVS: normal S1 and S2. RRR. No M/R/G. Resp: Lungs clear to auscultation bilaterally. Abd: soft, non-tender, non-distended. BS+ in all 4 quadrants. MSK: Good ROM in LUE & LLE. No edema or rash. Neuro: CN II-XII grossly intact. Strength 5/5 in LUE & LLE. Alert and oriented x1. Right-sided deficits, baseline. Delirious, agitated. Psych: appropriate mood and affect. Objective Labs 06/20/24 05:35 06/20/24 05:35 Labs: Laboratory Results - last 24 hr 06/20/24 05:35 WBC 7.2 RBC 3.73 L Hgb 11.7 L Hct 33.4 L MCV 90 MCH 31.4 MCHC 35.0 RDW Std Deviation 43.5 Plt Count 217 Neut % (Auto) 79 Lymph % (Auto) 15 Kay % (Auto) 4 Eos % (Auto) 2 Baso % (Auto) 0 Neut # (Auto) 5.6 Lymph # (Auto) 1.1 Kay # (Auto) 0.3 Eos # (Auto) 0.1 Baso # (Auto) 0.0 Immature Gran # (Auto) 0.03 H Absolute Nucleated RBC 0.00 Immature Gran % 0 Nucleated RBC % 0 Sodium 146 H Potassium 3.3 L Chloride 113 H Carbon Dioxide 23.9 Anion Gap 9 BUN 14 Creatinine 0.7 Estim Creat Clear Calc 89.8 eGFR > 60 BUN/Creatinine Ratio 20 Glucose 117 H Calculated Osmolality 292 Calcium 8.8 Corrected Calcium 9.4 Phosphorus 2.1 L Magnesium 2.1 Total Bilirubin 0.4 AST 14 ALT 14 Alkaline Phosphatase 65 Total Protein 6.1 Albumin 3.3 L Globulin 2.8 Albumin/Globulin Ratio 1.2 ABG Interpretation ABG results: 06/17/24 10:10 ABG pH 7.46 H ABG pCO2 35 ABG pO2 73 L ABG HCO3 25 ABG O2 Saturation 96 ABG Base Excess 1 Quality Measures Quality Measures VTE prophylaxis Advance care planning discussed with:: other Assessment & Plan Assessment Current Active Medications: Generic Name Dose Route Start Last Admin Trade Name Freq PRN Reason Stop Dose Admin Acetaminophen 650 mg 06/18/24 04:59 06/20/24 06:12 Acetaminophen Gisele 325 Mg/10 Ml Udc GT 07/18/24 04:58 650 mg Q6HR PRN Administration Pain 1-10 Or Fever > 100.4 Amlodipine Besylate 10 mg 06/20/24 10:30 06/20/24 11:05 Amlodipine Besylate 5 Mg Tablet GT 07/20/24 10:29 10 mg QDAY RE Administration Apixaban 5 mg 06/16/24 23:45 06/20/24 08:55 Apixaban 2.5 Mg Tablet GT 07/16/24 23:44 5 mg BID RE Administration Aspirin 81 mg 06/17/24 09:30 06/20/24 08:55 Aspirin 81 Mg Chew GT 07/17/24 09:29 81 mg QDAY RE Administration Atorvastatin Calcium 80 mg 06/17/24 21:00 06/19/24 20:43 Atorvastatin Calcium 20 Mg Tablet GT 07/17/24 20:59 80 mg HS RE Administration Dextrose 25 ml 06/16/24 23:43 Dextrose 50%-Water Inj 50 Ml Syringe IV 07/16/24 23:42 Q15MIN PRN BG 50-70 responsive npo pt Dextrose 50 ml 06/16/24 23:43 Dextrose 50%-Water Inj 50 Ml Syringe IV 07/16/24 23:42 Q15MIN PRN BG <50 OR BG <70 & pt unresponsive Fluconazole 200 mg 06/17/24 09:00 06/20/24 08:54 Fluconazole Susp 40 Mg/Ml Ml GT 06/24/24 08:59 200 mg QDAY RE Administration Glucagon 1 mg 06/16/24 23:43 Glucagon Inj 1 Mg Vial IM Q15MIN PRN BG <70, and no IV access Guaifenesin 100 mg 06/19/24 10:28 Guaifenesin Syrup 200 Mg/10 Ml Udc GT 07/19/24 10:27 QID PRN COUGH Protocol Doxycycline Hyclate 100 mg/ 100 mls @ 100 mls/hr 06/18/24 09:00 06/20/24 08:53 Sodium Chloride IV 06/25/24 08:59 100 mls/hr BID RE Administration Ceftriaxone Sodium/Dextrose 2 gm in 50 mls @ 100 mls/hr 06/19/24 11:00 06/20/24 08:54 Rocephin/D5w 2gm IV 06/26/24 10:59 100 mls/hr QDAY RE Administration Insulin Glargine 10 unit 06/17/24 21:00 06/19/24 21:10 Insulin Glargine (Lantus) 5 Unit/0.05 Ml (Per 5 Units) SC 07/17/24 20:59 10 unit HS RE Administration Insulin Human Lispro 0 unit 06/17/24 00:00 06/20/24 12:16 Insulin Lispro (Admelog) 1 Unit/0.01 Ml Unit SC 07/17/24 00:00 1 unit Q6HR RE Administration Protocol Ipratropium [place] 0.5 mg 06/19/24 13:21 Ipratropium Rt 0.5 Mg/ 2.5 Ml Nebu INH 07/17/24 00:59 Q6HRRT PRN COUGH Protocol Levalbuterol HCl 0.63 mg 06/19/24 13:21 Levalbuterol Rt 0.63 Mg/3 Ml Nebu INH 07/17/24 00:59 Q6HRRT PRN COUGH Magnesium Hydroxide 30 ml 06/19/24 10:35 Milk Of Magnesia Susp 30 Ml Udc GT 07/19/24 10:34 QDAY PRN CONSTIPATION Protocol Ondansetron HCl 4 mg 06/16/24 23:14 Ondansetron Inj 2 Mg/Ml Inj 2 Ml IV 07/16/24 23:13 Q6H PRN NAUSEA OR VOMITING Protocol Oxcarbazepine 300 mg 06/19/24 09:00 06/20/24 08:55 Oxcarbazepine 150 Mg Tablet (Non-Formulary) PO 07/19/24 08:59 300 mg BID RE Administration Pantoprazole Sodium 40 mg 06/17/24 09:00 06/20/24 08:52 Pantoprazole Inj 40 Mg Vial IVP 07/17/24 08:59 40 mg QDAY RE Administration Quetiapine Fumarate 25 mg 06/20/24 21:00 Quetiapine Fumarate 25 Mg Tablet GT 07/20/24 20:59 HS RE Sennosides 8.8 mg 06/19/24 10:35 06/20/24 08:56 Sennosides Syrup 8.8 Mg/5 Ml Udc GT 07/19/24 10:34 8.8 mg QDAY PRN Administration CONSTIPATION Protocol Sodium Chloride 3 ml 06/16/24 20:09 06/16/24 20:18 Sodium Chloride Rt Gisele 0.9% 3 Ml Nebu INH 07/16/24 20:08 3 ml PRN PRN Administration SOLN Plan 79-year-old Norwegian-speaking male with 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 #Sepsis, resolved #Community acquired pneumonia Patient met 4/4 SIRS criteria with leukocytosis, tachycardia, tachypnea, and fever, with source pneumonia. Patient was hypoxic, not previously on oxygen. UA was negative. Procal was negative. COVID negative. Flu and RSV negative. Blood and sputum culture grew GPC. Repeat blood cultures drawn. Awaiting speciation. Patient azithromycin changed to doxycycline, Rocephin increased to 2 g daily. -Started ceftriaxone 2 g IV qday -Doxycycline 100 mg IV twice daily -DuoNebs ipratropium and levalbuterol q6h scheduled -Blood cultures pending, sputum culture pending -MRSA screen pending -Chest physiotherapy -Titrate oxygen as tolerated to maintain saturations >93% #Delirium, hospital induced Overnight patient became agitated, pulling at lines, trying to get out of bed. Patient received 25 mg Seroquel, showed improvement. Patient became agitated again requiring wrist restraint for few hours. In the morning patient was again agitated, pulling at lines. Main was placed on left hand. -Attempt to keep patient oriented, maintain good day-night cycle. -Seroquel 25 mg G-tube at bedtime #Hypernatremia, resolved On admission sodium was 154, osmolality quite high at 324. Possibly secondary to dehydration. Patient did get 1L NS in ED. Free water deficit is calculated at 4.3L. Patient received D5W at 140 ml/hr with q6h glucose checks. Sodium improved to 146, D5W was stopped. Patient resuming previous PEG tube diet with water flushes. -Monitor daily labs -Resumed tube feeds with free water flushes #Hyperglycemia Initial glucose 236. No listed history of diabetes in patient's SNF chart. A1c 5.4% -Bedside blood glucose checks q6h -Insulin sliding scale sensitive, adjust as necessary #NSTEMI type 2 demand ischemia On ED evaluation troponin 0.068, likely secondary to sepsis. EKG no ST-T abnormalities. Troponin peaked at 0.068. -Telemonitoring, med/telemetry #History of coccidioidomycosis Patient has fluconazole 200 mg qday listed as home medication, started on admission to the SNF on 05/29/2024 and listed as precribed for 6 month course. Cocci IgM negative 06/16/24. Cocci IgG positive. -Continue fluconazole 200 mg qday #History of CVA with right sided residual deficits Head CT shows old stroke in the left brainstem pontine area consistent with patient's current baseline neurologic status. 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 -Hold home medication due to sepsis, resume if BP become elevated #History of PE Unknown when patient was diagnosed with PE. -Continue home Eliquis 5 mg BID #Dysphagia s/p G-tube placement Placed after patient had stroke 3 months back resulting in residual dysphagia. Per facility, patient on Jevity with 240 ml free water flushes q6h. -Consulted repairer general, appreciate recs -Resumed tube feeds DVT prophylaxis: Eliquis GI prophylaxis: Protonix Diet: PEG tube feeds Lines: Peripheral IV Code status: DNR Plan of care discussed with senior resident Dr. George PGY?[address] Salazar. Jcarlos Aguaoy MD PGY?1 Attending Provider Attestation/Addendum I attest that I was physically present for the evaluation, physical examination, lab and imaging review of the patient with the residents. I discussed the case with the residents and agree with the findings and plans of care as documented above. At bedside today, patient was laying comfortably. She was awake but drowsy and unable to answer questions or follow commands appropriately. Was moving only his left upper and lower extremity. Patient received Seroquel overnight due to agitation. Continues to be on Rocephin and doxycycline. Patient's sodium level went to 146 today from 144 yesterday. We will repeat his sodium level this afternoon, if continues to elevate, we will increase the free water flushes. Potassium level 3.3 today treated accordingly. We will add Seroquel at bedtime for delirium. Pending blood and sputum cultures. Kash Salazar MD
[2024-06-20 15:54] LABS: Sodium 144 mMol/L (136-145)
[2024-06-20] MEDS: QUEtiapine FUMARATE 25 MG TABLET GT (20:50)
[2024-06-20] MEDS: ATORVASTATIN CALCIUM 20 MG TABLET 80 MG GT (20:51)
[2024-06-20] MEDS: INSULIN GLARGINE (Lantus) 5 UNIT/0.05 ML (PER 5 UNITS) 10 UNIT SC (21:42)
[2024-06-21] VITALS (11 sets, daily range): BP systolic 112–139; BP diastolic 61–89; PULSE 60–87; RESP 7–98; TEMP 36–37.1; O2SAT 95–979
[2024-06-21] MEDS: INSULIN LISPRO (AdmeLOG) 1 UNIT/0.01 ML UNIT SC ×2 (05:26→17:44)
[2024-06-21 06:20] LABS: Basophils % (Auto) 0 % (0-2.5); Eosinophils # (Auto) 0.2 Thou/mm3 (0.0-0.5); Eosinophils % (Auto) 3 % (0-10); Hematocrit 32.9 % (41.0-53.0); Hemoglobin 11.3 g/dL (13.5-16.0); Immature Granulocytes % (Auto) 0 % (0-0); Immature Granulocytes Auto 0.02 Thou/mm3 (0.00-0.00); Lymphocytes # (Auto) 1.5 Thou/mm3 (1.0-4.8); Lymphocytes % (Auto) 22 % (10-50); Mean Corpuscular HGB Conc 34.3 g/dl (31.0-37.0); Mean Corpuscular Hemoglobin 30.5 pg (25.0-35.0); Mean Corpuscular Volume 89 fL (80-100); Monocytes # (Auto) 0.3 Thou/mm3 (0.0-0.8); Monocytes % (Auto) 5 % (0-12); Neutrophils % (Auto) 70 % (37-80); Nucleated Red Blood Cell % 0 /100 WBC (0); Platelet Count 232 Thou/mm3 (140-440); RDW Standard Deviation 44.1 fL (35.1-43.9)
[2024-06-21 06:45] LABS: Alanine Aminotransferase 21 U/L (10-49); Alkaline Phosphatase 63 U/L (46-116); Anion Gap 9 (7-16); Aspartate Amino Transferase 22 U/L (0-34); BUN/Creatinine Ratio 20 Ratio (12-20); Bilirubin,Total 0.3 mg/dL (0.3-1.2); Blood Urea Nitrogen 12 mg/dL (9-23); Calcium 8.5 mg/dL (8.3-10.6); Calcium (Corrected) 9.3 mg/dL (8.5-10.1); Chloride 111 mMol/L (98-107); Creatinine (Component) 0.6 mg/dL (0.6-1.3); Estimated Creatinine Clearance 104.8 mL/min (>60); Globulin 2.9 gm/dL (2.3-3.5); Glucose 166 mg/dL (74-106); Osmolality,Calculated 286 (275-295); Phosphorous 2.8 mg/dL (2.4-5.1); Potassium 3.5 mMol/L (3.4-5.1); Sodium 142 mMol/L (136-145); Total Protein 5.9 gm/dL (5.7-8.2); eGFR > 60 See Note
--- NOTE | 2024-06-21 09:32 | PC.SS ---
SS update: pending ID consult and cultures.
[2024-06-21] MEDS: ASPIRIN 81 MG CHEW GT (09:55)
[2024-06-21] MEDS: APIXABAN 2.5 MG TABLET 5 MG GT ×2 (09:55→21:29)
[2024-06-21] MEDS: amLODIPine BESYLATE 5 MG TABLET 10 MG GT (09:56)
[2024-06-21] MEDS: PANTOPRAZOLE INJ 40 MG VIAL IVP (09:56)
[2024-06-21] MEDS: DOXYCYCLINE INJ 100 MG in SODIUM CHLORIDE 0.9% (P) 100 ML IV ×2 (09:56→21:29)
[2024-06-21] MEDS: FLUCONAZOLE SUSP 40 MG/ML ML 200 MG GT (09:57)
[2024-06-21] MEDS: cefTRIAXone/D5w 2gm 2 GM/50 ML BAG IV (09:58)
[2024-06-21] MEDS: OXCARBazepine 150 MG TABLET (NON-FORMULARY) 300 MG PO ×2 (09:58→22:24)
--- NOTE | 2024-06-21 13:34 | PD.RESDS ---
Planned Discharge Date 06/21/24 DS: Providers Provider Date of admission: 06/16/24 23:14 Primary care physician: Fabian Rashid MD Admitting Provider: Terry Martin DO Attending Provider on Admission: Dariel Barron MD Consults: 06/16/24 23:55 Referral Registered Dietitian Stat Comment: Patient is G-tube dependent, from [facility] 06/18/24 09:25 Referral Speech Therapy Routine Comment: Attending Provider on DC: Kash Salazar MD Discharging Provider: Jcarlos Aguayo MD DS: Diagnosis Problem List Completed Was Problem List Reviewed/Reconciled?: Yes Hospital Course Hospital Course Hospital course: 79-year-old Tanzanian-speaking male with past medical 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 Patient currently alert and oriented to self and birthdate, unknown baseline. Patient unable to give much history but is arousable to voice and interactable. Patient initially had rectal temp 102.8, noted to be saturating 90% on room air with lower base crackles. Most of history obtained via chart review. Of note there is a POLST form in the chart which is signed on 05/29/2024 and states that the patient is DNR with Comfort-Focused Treatment selected. A three-way call was made before the admission with official elastic cutter with the listed legally recognized decision-maker, Meme Dey, daughter of the patient. On the phone call Marquita Aguilar, the patient's , was also present. The family was explained the present situation which brought the patient to the hospital and his current condition. They decided that they would like to have the patient admitted and treated for pneumonia. He will remain DNR. Also of note, patient has a PEG tube despite no artificial means of nutrition on POLST being selected. It is uncertain whether the family understood this selection at the time of POLST signing. They may need to update the POLST. Will continue with tube feeds per family's current wishes. ED Course: -Initial vitals were BP 138/81, HR 127, RR 22, Temp 100.8, O2 92% -Labs significant for WBC 17.7, Na 154, Cl 118, BUN 44, glucose 324, lactic acid 2.5->1.6, troponin 0.068, procalcitonin 0.28 normal -EKG showed sinus tachycardia with frequent PVCs -CXR showed moderate vascular congestion and early left base pneumonia -Head CT showed age indeterminate infarct in the left brainstem at pontine level, likely the known stroke 3 months ago -In the ED, patient was given 1L NS IV bolus x1, acetaminophen 650 mg MI x1, ceftriaxone 1g IV x1, albuterol 2.5 mg breathing treatment -Patient was admitted for sepsis secondary to pneumonia Time Spent with Patient Time attestation: Total time spent providing and/or coordinating discharge services: Exam Vital Signs Temp Pulse Resp BP Pulse Ox O2 Del Method O2 Flow Rate 98.1 F 83 18 123/69 979 H Room Air 6 06/21/24 12:00 06/21/24 12:00 06/21/24 12:00 06/21/24 12:00 06/21/24 12:00 06/21/24 12:00 06/19/24 06:26 Discharge Plan Plan Patient Disposition: Xfer Skilled Nsg Fac (SNF) Patient condition on transfer: Stable Care Plan Goals: You have been started on the following medications: -Doxycycline 100 mg twice daily for 2 days -Seroquel 25 mg via G-tube at night for sleeping Please continue taking all previous medications as previously prescribed Please return to the ED if you have new or worsening symptoms, including altered mental status or fevers. Prescriptions/Referrals Prescriptions/Med Rec: New acetaminophen 325 mg/10.15 mL Solution 650 mg G-tube Q6HR PRN (Reason: Pain 1-10 Or Fever > 100.4) Qty: 1015 0RF quetiapine 25 mg Tablet 25 mg G-tube HS Qty: 30 0RF doxycycline monohydrate 100 mg capsule 100 mg PO BID 2 Days Qty: 4 0RF Continued atorvastatin [Lipitor] 80 mg Tablet 80 mg feeding tube QDAY aspirin 325 mg Tablet 325 mg feeding tube QDAY fluconazole 200 mg tablet 200 mg feeding tube QDAY oxcarbazepine 300 mg tablet 300 mg feeding tube BID melatonin 3 mg Tablet 3 mg PO HS PRN (Reason: Insomnia) tramadol 50 mg tablet 50 mg feeding tube Q6H PRN (Reason: pain 6-9) famotidine 20 mg tablet 20 mg feeding tube QDAY amlodipine 10 mg tablet 10 mg feeding tube QDAY Rx Instructions: hold if sbp <110 HR <60 docusate sodium 100 mg Tablet 100 mg PO QDAY Rx Instructions: give through feeding tube fenofibrate nanocrystallized 145 mg tablet 145 mg QDAY Rx Instructions: give via feeding tube Eliquis 5 mg tablet 5 mg feeding tube BID guaifenesin 600 mg Tablet Extended Release 12hr 600 mg PO Q12H Rx Instructions: Give until 06/19/24 Discontinued acetaminophen 650 mg Tablet 650 mg PO Q4H PRN (Reason: Pain (Scale Score 1-3)) Referrals: Fabian Rashid MD [Primary Care Provider] - Patient/Caregiver Discharge Instructions Discharge Activity: activity as tolerated Education Materials: What Is Pneumonia?, Preventing Pneumonia, Sepsis, Preventing Common Respiratory ..., ED Pneumonia (Adult) Print Language: Tanzanian Stand Alone Forms: Bina Award Info., Patient Portal Info Letter Quality Discharge Quality Measures VTE prophylaxis
--- NOTE | 2024-06-21 15:06 | PC.SS ---
Addendum entered by BG Reagan 06/21/24 15:25: SS update: received call from Pippa at [facility]. Informs there is a need for PT note for patient's insurance authorization. Notified Dr. George and Dr. Horowitz of need for PT order.. Original Note: SS follow up: patient is pending insurance authorization to d/c to [facility]. Sent updated clinicals to [facility] via [employer]. Updated bed side nurse on status.
--- NOTE | 2024-06-21 15:25 | ESPR_ITS ---
<Statement entered by Zachariah George MD - 06/21/24 15:44> Patient was seen and examined at the bedside this morning. Patient is markedly improved since admission. No acute overnight events reported. Blood cultures grew Staph epidermidis and plan was to discharge him on doxycycline 100 mg to complete antibiotic course. Hyponatremia resolved. KCl was repleted. Patient is currently pending for PT evaluation for reauthorization for SNF. Anticipating discharge tomorrow. All labs and orders were reviewed. I saw and examined the patient, and I agree with current management stated by Dr Olivier MD,PGY1. Plan of care was discussed with the attending physician and resident physician. Disclaimer: Despite multiple revisions, due to the dictation software being used, the document bellow may not be free of grammatical errors including phonetic/typographic errors. However, this does not deter from our commitment to providing health care in the patient's best interest in mind. Dr. Kacey MD, PGY 2 Documentation for date of: 06/21/24 Subjective Subjective Interval history: No overnight events. Patient seen and examined at bedside. Patient resting calmly, not requiring restraints. Denies shortness of breath, abdominal pain. Discharge pending PT eval. DC Huynh cath, voiding trial. Continue antibiotics. Exam Vital Signs Temp Pulse Resp BP Pulse Ox O2 Del Method O2 Flow Rate 98.1 F 83 18 123/69 979 H Room Air 6 06/21/24 12:00 06/21/24 12:06/21/24 12:06/21/24 12:06/21/24 12:06/21/24 12:06/19/24 06:26 Narrative Exam PE: Gen: Well-developed and well-nourished. HEENT: NCAT, PERRLA, EOMI, MMM, anicteric conjunctivae. CVS: normal S1 and S2. RRR. No M/R/G. Resp: Lungs clear to auscultation bilaterally. Abd: soft, non-tender, non-distended. BS+ in all 4 quadrants. MSK: Good ROM in LUE & LLE. No edema or rash. Neuro: CN II-XII grossly intact. Strength 5/5 in LUE & LLE. Alert and oriented x1. Right-sided deficits, baseline. Psych: appropriate mood and affect. Objective Labs 06/21/24 05:50 06/21/24 05:50 Labs: Laboratory Results - last 24 hr 06/20/24 06/21/24 15:25 05:50 WBC 7.0 RBC 3.70 L Hgb 11.3 L Hct 32.9 L MCV 89 MCH 30.5 MCHC 34.3 RDW Std Deviation 44.1 H Plt Count 232 Neut % (Auto) 70 Lymph % (Auto) 22 [place] % (Auto) 5 Eos % (Auto) 3 Baso % (Auto) 0 Neut # (Auto) 5.0 Lymph # (Auto) 1.5 [place] # (Auto) 0.3 Eos # (Auto) 0.2 Baso # (Auto) 0.0 Immature Gran # (Auto) 0.02 H Absolute Nucleated RBC 0.00 Immature Gran % 0 Nucleated RBC % 0 Sodium 144 142 Potassium 3.5 Chloride 111 H Carbon Dioxide 22.0 Anion Gap 9 BUN 12 Creatinine 0.6 Estim Creat Clear Calc 104.8 eGFR > 60 BUN/Creatinine Ratio 20 Glucose 166 H Calculated Osmolality 286 Calcium 8.5 Corrected Calcium 9.3 Phosphorus 2.8 Magnesium 2.0 Total Bilirubin 0.3 AST 22 ALT 21 Alkaline Phosphatase 63 Total Protein 5.9 Albumin 3.0 L Globulin 2.9 Albumin/Globulin Ratio 1.0 L ABG Interpretation ABG results: 06/17/24 10:10 ABG pH 7.46 H ABG pCO2 35 ABG pO2 73 L ABG HCO3 25 ABG O2 Saturation 96 ABG Base Excess 1 Quality Measures Quality Measures VTE prophylaxis Advance care planning discussed with:: patient Assessment & Plan Assessment Current Active Medications: Generic Name Dose Route Start Last Admin Trade Name Freq PRN Reason Stop Dose Admin Acetaminophen 650 mg 06/18/24 04:59 06/20/24 17:44 Acetaminophen Gisele 325 Mg/10 Ml Udc GT 07/18/24 04:58 650 mg Q6HR PRN Administration Pain 1-10 Or Fever > 100.4 Amlodipine Besylate 10 mg 06/20/24 10:30 06/21/24 09:56 Amlodipine Besylate 5 Mg Tablet GT 07/20/24 10:29 10 mg QDAY RE Administration Apixaban 5 mg 06/16/24 23:45 06/21/24 09:55 Apixaban 2.5 Mg Tablet GT 07/16/24 23:44 5 mg BID RE Administration Aspirin 81 mg 06/17/24 09:30 06/21/24 09:55 Aspirin 81 Mg Chew GT 07/17/24 09:29 81 mg QDAY RE Administration Atorvastatin Calcium 80 mg 06/17/24 21:00 06/20/24 20:51 Atorvastatin Calcium 20 Mg Tablet GT 07/17/24 20:59 80 mg HS RE Administration Dextrose 25 ml 06/16/24 23:43 Dextrose 50%-Water Inj 50 Ml Syringe IV 07/16/24 23:42 Q15MIN PRN BG 50-70 responsive npo pt Dextrose 50 ml 06/16/24 23:43 Dextrose 50%-Water Inj 50 Ml Syringe IV 07/16/24 23:42 Q15MIN PRN BG <50 OR BG <70 & pt unresponsive Fluconazole 200 mg 06/17/24 09:00 06/21/24 09:57 Fluconazole Susp 40 Mg/Ml Ml GT 06/24/24 08:59 200 mg QDAY RE Administration Glucagon 1 mg 06/16/24 23:43 Glucagon Inj 1 Mg Vial IM Q15MIN PRN BG <70, and no IV access Guaifenesin 100 mg 06/19/24 10:28 Guaifenesin Syrup 200 Mg/10 Ml Udc GT 07/19/24 10:27 QID PRN COUGH Protocol Doxycycline Hyclate 100 mg/ 100 mls @ 100 mls/hr 06/18/24 09:00 06/21/24 09:56 Sodium Chloride IV 06/25/24 08:59 100 mls/hr BID RE Administration Ceftriaxone Sodium/Dextrose 2 gm in 50 mls @ 100 mls/hr 06/19/24 11:00 06/21/24 09:58 Rocephin/D5w 2gm IV 06/26/24 10:59 100 mls/hr QDAY RE Administration Insulin Glargine 10 unit 06/17/24 21:00 06/20/24 21:42 Insulin Glargine (Lantus) 5 Unit/0.05 Ml (Per 5 Units) SC 07/17/24 20:59 10 unit HS RE Administration Insulin Human Lispro 0 unit 06/17/24 00:00 06/21/24 11:43 Insulin Lispro (Admelog) 1 Unit/0.01 Ml Unit SC 07/17/24 00:00 Not Given Q6HR RE Protocol Ipratropium [place] 0.5 mg 06/21/24 14:01 Ipratropium Rt 0.5 Mg/ 2.5 Ml Nebu INH 07/17/24 00:59 Q6HRRT PRN SHORTNESS OF BREATH OR WHEEZE Protocol Levalbuterol HCl 0.63 mg 06/21/24 14:02 Levalbuterol Rt 0.63 Mg/3 Ml Nebu INH 07/17/24 00:59 Q6HRRT PRN SHORTNESS OF BREATH OR WHEEZE Protocol Magnesium Hydroxide 30 ml 06/19/24 10:35 Milk Of Magnesia Susp 30 Ml Udc GT 07/19/24 10:34 QDAY PRN CONSTIPATION Protocol Ondansetron HCl 4 mg 06/16/24 23:14 Ondansetron Inj 2 Mg/Ml Inj 2 Ml IV 07/16/24 23:13 Q6H PRN NAUSEA OR VOMITING Protocol Oxcarbazepine 300 mg 06/19/24 09:00 06/21/24 09:58 Oxcarbazepine 150 Mg Tablet (Non-Formulary) PO 07/19/24 08:59 300 mg BID RE Administration Pantoprazole Sodium 40 mg 06/17/24 09:00 06/21/24 09:56 Pantoprazole Inj 40 Mg Vial IVP 07/17/24 08:59 40 mg QDAY RE Administration Quetiapine Fumarate 25 mg 06/20/24 21:00 06/20/24 20:50 Quetiapine Fumarate 25 Mg Tablet GT 07/20/24 20:59 25 mg HS RE Administration Sennosides 8.8 mg 06/19/24 10:35 06/20/24 08:56 Sennosides Syrup 8.8 Mg/5 Ml Udc GT 07/19/24 10:34 8.8 mg QDAY PRN Administration CONSTIPATION Protocol Sodium Chloride 3 ml 06/16/24 20:09 06/16/24 20:18 Sodium Chloride Rt Gisele 0.9% 3 Ml Nebu INH 07/16/24 20:08 3 ml PRN PRN Administration SOLN Plan 79-year-old Slovak-speaking male with 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 #Sepsis, resolved #Community acquired pneumonia Patient met 4/4 SIRS criteria with leukocytosis, tachycardia, tachypnea, and fever, with source pneumonia. Patient was hypoxic, not previously on oxygen. UA was negative. Procal was negative. COVID negative. Flu and RSV negative. Blood and sputum culture grew GPC, speciation appears to be contaminant. Repeat blood cultures drawn. Patient azithromycin changed to doxycycline, Rocephin increased to 2 g daily. Patient shows clinical improvement on current regimen. -Started ceftriaxone 2 g IV qday -Doxycycline 100 mg IV twice daily -DuoNebs ipratropium and levalbuterol q6h scheduled -Blood cultures pending, sputum culture pending -MRSA screen pending -Chest physiotherapy -Titrate oxygen as tolerated to maintain saturations >93% #Delirium, hospital induced, improved Overnight patient became agitated, pulling at lines, trying to get out of bed. Patient received 25 mg Seroquel, showed improvement. Patient became agitated again requiring wrist restraint for few hours. In the morning patient was again agitated, pulling at lines. Mitten was placed on left hand. -Attempt to keep patient oriented, maintain good day-night cycle. -Seroquel 25 mg G-tube at bedtime #Hypernatremia, resolved On admission sodium was 154, osmolality quite high at 324. Possibly secondary to dehydration. Patient did get 1L NS in ED. Free water deficit is calculated at 4.3L. Patient received D5W at 140 ml/hr with q6h glucose checks. Sodium improved to 146, D5W was stopped. Patient resuming previous PEG tube diet with water flushes. -Monitor daily labs -Resumed tube feeds with free water flushes #Hyperglycemia Initial glucose 236. No listed history of diabetes in patient's SNF chart. A1c 5.4% -Bedside blood glucose checks q6h -Insulin sliding scale sensitive, adjust as necessary #NSTEMI type 2 demand ischemia On ED evaluation troponin 0.068, likely secondary to sepsis. EKG no ST-T abnormalities. Troponin peaked at 0.068. -Telemonitoring, med/telemetry #History of coccidioidomycosis Patient has fluconazole 200 mg qday listed as home medication, started on admission to the SNF on 05/29/2024 and listed as precribed for 6 month course. Cocci IgM negative 06/16/24. Cocci IgG positive. -Continue fluconazole 200 mg qday #History of CVA with right sided residual deficits Head CT shows old stroke in the left brainstem pontine area consistent with patient's current baseline neurologic status. 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 -Hold home medication due to sepsis, resume if BP become elevated #History of PE Unknown when patient was diagnosed with PE. -Continue home Eliquis 5 mg BID #Dysphagia s/p G-tube placement Placed after patient had stroke 3 months back resulting in residual dysphagia. Per facility, patient on Jevity with 240 ml free water flushes q6h. -Consulted medical delivery driver, appreciate recs -Resumed tube feeds DVT prophylaxis: Eliquis GI prophylaxis: Protonix Diet: PEG tube feeds, pur?ed food for pleasure eating. Lines: Peripheral IV Code status: DNR Plan of care discussed with senior resident Dr. George PGY?[address] Salazar. Jcarlos Aguayo MD PGY?1 Attending Provider Attestation/Addendum I attest that I was physically present for the evaluation, physical examination, lab and imaging review of the patient with the residents. I discussed the case with the residents and agree with the findings and plans of care as documented above. At bedside today, patient appears calm, restraints are discontinued. Patient's blood culture grew Staphylococcus epidermidis on only 1 bottle likely contamination. Sputum culture also grew Staphylococcus aureus contamination as well. Vital signs are stable. Lab results continue to be stable. Patient was planned for discharge but [facility] recommended another PT evaluation, we will obtain the PT evaluation and plan for discharge tomorrow. Kash Salazar MD
[2024-06-21] MEDS: ACETAMINOPHEN SOL 325 MG/10 ML UDC 650 MG GT (16:23)
[2024-06-21] MEDS: ATORVASTATIN CALCIUM 20 MG TABLET 80 MG GT (21:29)
[2024-06-21] MEDS: QUEtiapine FUMARATE 25 MG TABLET GT (21:29)
[2024-06-21] MEDS: INSULIN GLARGINE (Lantus) 5 UNIT/0.05 ML (PER 5 UNITS) 10 UNIT SC (21:30)
[2024-06-22] VITALS (10 sets, daily range): BP systolic 119–133; BP diastolic 69–85; PULSE 68–81; RESP 15–100; TEMP 35.9–36.6; O2SAT 96–100; BMI 12.0
[2024-06-22] MEDS: INSULIN LISPRO (AdmeLOG) 1 UNIT/0.01 ML UNIT SC ×2 (05:26→12:31)
[2024-06-22 05:34] LABS: Basophils % (Auto) 0 % (0-2.5); Eosinophils # (Auto) 0.2 Thou/mm3 (0.0-0.5); Eosinophils % (Auto) 3 % (0-10); Hemoglobin 11.3 g/dL (13.5-16.0); Immature Granulocytes % (Auto) 1 % (0-0); Immature Granulocytes Auto 0.05 Thou/mm3 (0.00-0.00); Lymphocytes # (Auto) 1.4 Thou/mm3 (1.0-4.8); Lymphocytes % (Auto) 23 % (10-50); Mean Corpuscular HGB Conc 35.3 g/dl (31.0-37.0); Mean Corpuscular Hemoglobin 31.2 pg (25.0-35.0); Mean Corpuscular Volume 88 fL (80-100); Monocytes # (Auto) 0.4 Thou/mm3 (0.0-0.8); Monocytes % (Auto) 6 % (0-12); Neutrophils # (Auto) 4.3 Thou/mm3 (1.8-7.7); Neutrophils % (Auto) 68 % (37-80); Nucleated Red Blood Cell % 0 /100 WBC (0); Platelet Count 313 Thou/mm3 (140-440); RDW Standard Deviation 43.3 fL (35.1-43.9); Red Blood Count 3.62 Miln/mm3 (4.50-5.90); White Blood Count 6.3 Thou/mm3 (3.8-10.6)
[2024-06-22 06:03] LABS: Alanine Aminotransferase 25 U/L (10-49); Albumin, Serum 3.1 gm/dL (3.4-4.8); Alkaline Phosphatase 66 U/L (46-116); Anion Gap 8 (7-16); Aspartate Amino Transferase 22 U/L (0-34); BUN/Creatinine Ratio 21 Ratio (12-20); Bilirubin,Total 0.3 mg/dL (0.3-1.2); Blood Urea Nitrogen 15 mg/dL (9-23); Calcium 8.6 mg/dL (8.3-10.6); Calcium (Corrected) 9.3 mg/dL (8.5-10.1); Carbon Dioxide 24.1 mMol/L (20.0-31.0); Chloride 110 mMol/L (98-107); Creatinine (Component) 0.7 mg/dL (0.6-1.3); Estimated Creatinine Clearance 89.8 mL/min (>60); Globulin 3.1 gm/dL (2.3-3.5); Glucose 153 mg/dL (74-106); Osmolality,Calculated 286 (275-295); Potassium 3.8 mMol/L (3.4-5.1); Sodium 142 mMol/L (136-145); Total Protein 6.2 gm/dL (5.7-8.2); eGFR > 60 See Note
--- NOTE | 2024-06-22 09:15 | PC.SS ---
Addendum entered by BG Reagan 06/22/24 16:53: SS follow up: authorization confirmation remains pending with [facility]. SS to follow up tomorrow on authorization status. Addendum entered by BG Reagan 06/22/24 15:17: Rounding note: patient ready for d/c , pending insurance authorization to [facility]. Addendum entered by BG Reagan 06/22/24 11:00: SS update: PT note sent to [facility] via Training Advisor and updated Pippa at [facility] to submit for insurance authorization. Original Note: SS follow up: patient is pending PT eval for review for insurance authorization to d/c to [facility]. Updated Dr. George and Physical Therapist.
[2024-06-22] MEDS: ACETAMINOPHEN SOL 325 MG/10 ML UDC 650 MG GT ×2 (10:37→17:20)
[2024-06-22] MEDS: ASPIRIN 81 MG CHEW GT (10:37)
[2024-06-22] MEDS: amLODIPine BESYLATE 5 MG TABLET 10 MG GT (10:37)
[2024-06-22] MEDS: OXCARBazepine 150 MG TABLET (NON-FORMULARY) 300 MG PO ×2 (10:37→21:14)
[2024-06-22] MEDS: APIXABAN 2.5 MG TABLET 5 MG GT ×2 (10:39→21:11)
[2024-06-22] MEDS: PANTOPRAZOLE INJ 40 MG VIAL IVP (10:39)
[2024-06-22] MEDS: FLUCONAZOLE SUSP 40 MG/ML ML 200 MG GT (10:40)
[2024-06-22] MEDS: DOXYCYCLINE INJ 100 MG in SODIUM CHLORIDE 0.9% (P) 100 ML IV ×2 (10:40→21:11)
[2024-06-22] MEDS: cefTRIAXone/D5w 2gm 2 GM/50 ML BAG IV (10:40)
--- NOTE | 2024-06-22 17:06 | ESPR_ITS ---
<Statement entered by Zachariah George MD - 06/22/24 17:11> Patient was seen and examined at the bedside. Patient has been doing well and no acute overnight events were reported. Patient is ready to be discharged to SNF however is pending on PT note for the authorization for SNF.Continuing with ceftriaxone and doxycycline for community-acquired pneumonia. Anticipating discharge tomorrow. I saw and examined the patient, and I agree with current management stated by Dr Pooja MD,PGY1. Plan of care was discussed with the attending physician and resident physician. Disclaimer: Despite multiple revisions, due to the dictation software being used, the document bellow may not be free of grammatical errors including phonetic/typographic errors. However, this does not deter from our commitment to providing health care in the patient's best interest in mind. Dr. Kacey MD, PGY 2 Documentation for date of: 06/22/24 Subjective Subjective Interval history: No overnight events. Patient seen and examined at bedside. No specific complaints, denies nausea, vomiting, chest pain, shortness of breath. Patient calm and cooperative. Planning for DC pending authorization. Exam Vital Signs Temp Pulse Resp BP Pulse Ox O2 Del Method O2 Flow Rate 97.7 F 73 18 119/69 98 Room Air 6 06/22/24 11:55 06/22/24 12:00 06/22/24 11:55 06/22/24 11:55 06/22/24 11:55 06/22/24 11:55 06/19/24 06:26 Narrative Exam PE: Gen: Well-developed and well-nourished. HEENT: NCAT, PERRLA, EOMI, MMM, anicteric conjunctivae. CVS: normal S1 and S2. RRR. No M/R/G. Resp: Lungs clear to auscultation bilaterally. Abd: soft, non-tender, non-distended. BS+ in all 4 quadrants. MSK: Good ROM in LUE & LLE. No edema or rash. Neuro: CN II-XII grossly intact. Strength 5/5 in LUE & LLE. Alert and oriented x1. Right-sided deficits, baseline. Psych: appropriate mood and affect. Objective Labs 06/23/24 05:45 06/23/24 05:45 Labs: Laboratory Results - last 24 hr 06/22/24 05:19 WBC 6.3 RBC 3.62 L Hgb 11.3 L Hct 32.0 L MCV 88 MCH 31.2 MCHC 35.3 RDW Std Deviation 43.3 Plt Count 313 D Neut % (Auto) 68 Lymph % (Auto) 23 [place] % (Auto) 6 Eos % (Auto) 3 Baso % (Auto) 0 Neut # (Auto) 4.3 Lymph # (Auto) 1.4 [place] # (Auto) 0.4 Eos # (Auto) 0.2 Baso # (Auto) 0.0 Immature Gran # (Auto) 0.05 H Absolute Nucleated RBC 0.00 Immature Gran % 1 H Nucleated RBC % 0 Sodium 142 Potassium 3.8 Chloride 110 H Carbon Dioxide 24.1 Anion Gap 8 BUN 15 Creatinine 0.7 Estim Creat Clear Calc 89.8 eGFR > 60 BUN/Creatinine Ratio 21 H Glucose 153 H Calculated Osmolality 286 Calcium 8.6 Corrected Calcium 9.3 Phosphorus 3.0 Magnesium 2.0 Total Bilirubin 0.3 AST 22 ALT 25 Alkaline Phosphatase 66 Total Protein 6.2 Albumin 3.1 L Globulin 3.1 Albumin/Globulin Ratio 1.0 L ABG Interpretation ABG results: 06/17/24 10:10 ABG pH 7.46 H ABG pCO2 35 ABG pO2 73 L ABG HCO3 25 ABG O2 Saturation 96 ABG Base Excess 1 Quality Measures Quality Measures VTE prophylaxis Advance care planning discussed with:: patient Assessment & Plan Assessment Current Active Medications: Generic Name Dose Route Start Last Admin Trade Name Freq PRN Reason Stop Dose Admin Acetaminophen 650 mg 06/22/24 14:38 Acetaminophen Gisele 325 Mg/10 Ml Udc GT 07/18/24 04:58 Q6HR PRN Pain 1-10 Or Fever > 100.4 Amlodipine Besylate 10 mg 06/20/24 10:30 06/22/24 10:37 Amlodipine Besylate 5 Mg Tablet GT 07/20/24 10:29 10 mg QDAY RE Administration Apixaban 5 mg 06/16/24 23:45 06/22/24 10:39 Apixaban 2.5 Mg Tablet GT 07/16/24 23:44 5 mg BID RE Administration Aspirin 81 mg 06/17/24 09:30 06/22/24 10:37 Aspirin 81 Mg Chew GT 07/17/24 09:29 81 mg QDAY RE Administration Atorvastatin Calcium 80 mg 06/17/24 21:00 06/21/24 21:29 Atorvastatin Calcium 20 Mg Tablet GT 07/17/24 20:59 80 mg HS RE Administration Dextrose 25 ml 06/16/24 23:43 Dextrose 50%-Water Inj 50 Ml Syringe IV 07/16/24 23:42 Q15MIN PRN BG 50-70 responsive npo pt Dextrose 50 ml 06/16/24 23:43 Dextrose 50%-Water Inj 50 Ml Syringe IV 07/16/24 23:42 Q15MIN PRN BG <50 OR BG <70 & pt unresponsive Fluconazole 200 mg 06/17/24 09:00 06/22/24 10:40 Fluconazole Susp 40 Mg/Ml Ml GT 06/24/24 08:59 200 mg QDAY RE Administration Glucagon 1 mg 06/16/24 23:43 Glucagon Inj 1 Mg Vial IM Q15MIN PRN BG <70, and no IV access Guaifenesin 100 mg 06/19/24 10:28 Guaifenesin Syrup 200 Mg/10 Ml Udc GT 07/19/24 10:27 QID PRN COUGH Protocol Doxycycline Hyclate 100 mg/ 100 mls @ 100 mls/hr 06/18/24 09:00 06/22/24 10:40 Sodium Chloride IV 06/25/24 08:59 100 mls/hr BID RE Administration Ceftriaxone Sodium/Dextrose 2 gm in 50 mls @ 100 mls/hr 06/19/24 11:00 06/22/24 10:40 Rocephin/D5w 2gm IV 06/26/24 10:59 100 mls/hr QDAY RE Administration Insulin Glargine 10 unit 06/17/24 21:00 06/21/24 21:30 Insulin Glargine (Lantus) 5 Unit/0.05 Ml (Per 5 Units) SC 07/17/24 20:59 10 unit HS RE Administration Insulin Human Lispro 0 unit 06/17/24 00:00 06/22/24 12:31 Insulin Lispro (Admelog) 1 Unit/0.01 Ml Unit SC 07/17/24 00:00 2 unit Q6HR RE Administration Protocol Ipratropium [place] 0.5 mg 06/21/24 14:01 Ipratropium Rt 0.5 Mg/ 2.5 Ml Nebu INH 07/17/24 00:59 Q6HRRT PRN SHORTNESS OF BREATH OR WHEEZE Protocol Levalbuterol HCl 0.63 mg 06/21/24 14:02 Levalbuterol Rt 0.63 Mg/3 Ml Nebu INH 07/17/24 00:59 Q6HRRT PRN SHORTNESS OF BREATH OR WHEEZE Protocol Magnesium Hydroxide 30 ml 06/19/24 10:35 Milk Of Magnesia Susp 30 Ml Udc GT 07/19/24 10:34 QDAY PRN CONSTIPATION Protocol Ondansetron HCl 4 mg 06/16/24 23:14 Ondansetron Inj 2 Mg/Ml Inj 2 Ml IV 07/16/24 23:13 Q6H PRN NAUSEA OR VOMITING Protocol Oxcarbazepine 300 mg 06/19/24 09:00 06/22/24 10:37 Oxcarbazepine 150 Mg Tablet (Non-Formulary) PO 07/19/24 08:59 300 mg BID RE Administration Pantoprazole Sodium 40 mg 06/17/24 09:00 06/22/24 10:39 Pantoprazole Inj 40 Mg Vial IVP 07/17/24 08:59 40 mg QDAY RE Administration Quetiapine Fumarate 25 mg 06/20/24 21:00 06/21/24 21:29 Quetiapine Fumarate 25 Mg Tablet GT 07/20/24 20:59 25 mg HS RE Administration Sennosides 8.8 mg 06/19/24 10:35 06/20/24 08:56 Sennosides Syrup 8.8 Mg/5 Ml Udc GT 07/19/24 10:34 8.8 mg QDAY PRN Administration CONSTIPATION Protocol Sodium Chloride 3 ml 06/16/24 20:09 06/16/24 20:18 Sodium Chloride Rt [place] 0.9% 3 Ml Nebu INH 07/16/24 20:08 3 ml PRN PRN Administration SOLN Plan 79-year-old Trinidadian-speaking male with 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 #Sepsis, resolved #Community acquired pneumonia Patient met 4/4 SIRS criteria with leukocytosis, tachycardia, tachypnea, and fever, with source pneumonia. Patient was hypoxic, not previously on oxygen. UA was negative. Procal was negative. COVID negative. Flu and RSV negative. Blood and sputum culture grew GPC, speciation appears to be contaminant. Repeat blood cultures drawn. Patient azithromycin changed to doxycycline, Rocephin increased to 2 g daily. Patient shows clinical improvement on current regimen. Blood and sputum cultures likely contaminant. Repeat blood cultures negative. -Started ceftriaxone 2 g IV qday -Doxycycline 100 mg IV twice daily -DuoNebs ipratropium and levalbuterol q6h scheduled -MRSA screen pending -Chest physiotherapy -Titrate oxygen as tolerated to maintain saturations >93% #Delirium, hospital induced, improved Overnight patient became agitated, pulling at lines, trying to get out of bed. Patient received 25 mg Seroquel, showed improvement. Patient became agitated again requiring wrist restraint for few hours. In the morning patient was again agitated, pulling at lines. Mitten was placed on left hand. -Attempt to keep patient oriented, maintain good day-night cycle. -Seroquel 25 mg G-tube at bedtime #Hypernatremia, resolved On admission sodium was 154, osmolality quite high at 324. Possibly secondary to dehydration. Patient did get 1L NS in ED. Free water deficit is calculated at 4.3L. Patient received D5W at 140 ml/hr with q6h glucose checks. Sodium improved to 146, D5W was stopped. Patient resuming previous PEG tube diet with water flushes. -Monitor daily labs -Resumed tube feeds with free water flushes #Hyperglycemia Initial glucose 236. No listed history of diabetes in patient's SNF chart. A1c 5.4% -Bedside blood glucose checks q6h -Insulin sliding scale sensitive, adjust as necessary #NSTEMI type 2 demand ischemia On ED evaluation troponin 0.068, likely secondary to sepsis. EKG no ST-T abnormalities. Troponin peaked at 0.068. -Telemonitoring, med/telemetry #History of coccidioidomycosis Patient has fluconazole 200 mg qday listed as home medication, started on admission to the SNF on 05/29/2024 and listed as precribed for 6 month course. Cocci IgM negative 06/16/24. Cocci IgG positive. -Continue fluconazole 200 mg qday #History of CVA with right sided residual deficits Head CT shows old stroke in the left brainstem pontine area consistent with patient's current baseline neurologic status. 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 -Hold home medication due to sepsis, resume if BP become elevated #History of PE Unknown when patient was diagnosed with PE. -Continue home Eliquis 5 mg BID #Dysphagia s/p G-tube placement Placed after patient had stroke 3 months back resulting in residual dysphagia. Per facility, patient on Jevity with 240 ml free water flushes q6h. -Consulted life sciences director, appreciate recs -Resumed tube feeds DVT prophylaxis: Eliquis GI prophylaxis: Protonix Diet: PEG tube feeds, pur?ed food for pleasure eating. Lines: Peripheral IV Code status: DNR Plan of care discussed with senior resident Dr. George PGY?[address] Junior. Jcarlos Aguayo MD PGY?1 Attending Provider Attestation/Addendum I have examined the patient, reviewed labs and imaging findings, discussed the case with the resident(s), and reviewed entered orders. I agree with the plan of care as outlined in this note, with these additional summaries/recommendations: Patient appears to be improving. Final sputum culture still pending, will continue patient on Rocephin, doxycycline, fluconazole at this time. Dissipate discharge in next 24 to 48 hours pending insurance authorization for SNF facility placement. Melo Junior MD
[2024-06-22] MEDS: ATORVASTATIN CALCIUM 20 MG TABLET 80 MG GT (21:11)
[2024-06-22] MEDS: QUEtiapine FUMARATE 25 MG TABLET GT (21:11)
[2024-06-22] MEDS: INSULIN GLARGINE (Lantus) 5 UNIT/0.05 ML (PER 5 UNITS) 10 UNIT SC (21:12)
[2024-06-23] VITALS (10 sets, daily range): BP systolic 129–151; BP diastolic 62–91; PULSE 73–100; RESP 16–23; TEMP 36.1–37; O2SAT 97–99
[2024-06-23 06:27] LABS: Basophils % (Auto) 0 % (0-2.5); Eosinophils # (Auto) 0.1 Thou/mm3 (0.0-0.5); Eosinophils % (Auto) 2 % (0-10); Hemoglobin 11.5 g/dL (13.5-16.0); Immature Granulocytes % (Auto) 1 % (0-0); Immature Granulocytes Auto 0.05 Thou/mm3 (0.00-0.00); Lymphocytes # (Auto) 1.5 Thou/mm3 (1.0-4.8); Lymphocytes % (Auto) 26 % (10-50); Mean Corpuscular HGB Conc 34.8 g/dl (31.0-37.0); Mean Corpuscular Hemoglobin 30.7 pg (25.0-35.0); Mean Corpuscular Volume 88 fL (80-100); Monocytes # (Auto) 0.4 Thou/mm3 (0.0-0.8); Monocytes % (Auto) 7 % (0-12); Neutrophils # (Auto) 3.7 Thou/mm3 (1.8-7.7); Neutrophils % (Auto) 64 % (37-80); Nucleated Red Blood Cell % 0 /100 WBC (0); Platelet Count 306 Thou/mm3 (140-440); RDW Standard Deviation 43.4 fL (35.1-43.9); Red Blood Count 3.74 Miln/mm3 (4.50-5.90); White Blood Count 5.8 Thou/mm3 (3.8-10.6)
[2024-06-23 06:58] LABS: Alanine Aminotransferase 25 U/L (10-49); Albumin, Serum 3.2 gm/dL (3.4-4.8); Albumin/Globulin Ratio 1.1 (1.2-2.2); Alkaline Phosphatase 67 U/L (46-116); Anion Gap 6 (7-16); Aspartate Amino Transferase 22 U/L (0-34); BUN/Creatinine Ratio 17 Ratio (12-20); Bilirubin,Total 0.3 mg/dL (0.3-1.2); Blood Urea Nitrogen 12 mg/dL (9-23); Calcium 8.7 mg/dL (8.3-10.6); Calcium (Corrected) 9.3 mg/dL (8.5-10.1); Carbon Dioxide 24.7 mMol/L (20.0-31.0); Chloride 107 mMol/L (98-107); Creatinine (Component) 0.7 mg/dL (0.6-1.3); Estimated Creatinine Clearance 89.8 mL/min (>60); Glucose 133 mg/dL (74-106); Osmolality,Calculated 277 (275-295); Phosphorous 3.1 mg/dL (2.4-5.1); Potassium 3.9 mMol/L (3.4-5.1); Sodium 138 mMol/L (136-145); Total Protein 6.2 gm/dL (5.7-8.2); eGFR > 60 See Note
[2024-06-23] MEDS: APIXABAN 2.5 MG TABLET 5 MG GT ×2 (10:23→21:55)
[2024-06-23] MEDS: amLODIPine BESYLATE 5 MG TABLET 10 MG GT (10:24)
[2024-06-23] MEDS: ASPIRIN 81 MG CHEW GT (10:27)
[2024-06-23] MEDS: PANTOPRAZOLE INJ 40 MG VIAL IVP (10:27)
[2024-06-23] MEDS: cefTRIAXone/D5w 2gm 2 GM/50 ML BAG IV (10:29)
[2024-06-23] MEDS: DOXYCYCLINE INJ 100 MG in SODIUM CHLORIDE 0.9% (P) 100 ML IV (10:30)
[2024-06-23] MEDS: OXCARBazepine 150 MG TABLET (NON-FORMULARY) 300 MG PO ×2 (10:30→21:56)
[2024-06-23] MEDS: FLUCONAZOLE SUSP 40 MG/ML ML 200 MG GT (10:31)
--- NOTE | 2024-06-23 13:34 | ESPR_ITS ---
Documentation for date of: 06/23/24 Subjective Subjective Interval history: Patient seen and examined at bedside. No acute problems overnight. Saturating on room air. Patient complaining of suprapubic pain. Bedside bladder scan showed urine retention of ~800ccs. In and out cath ordered. Exam Vital Signs Temp Pulse Resp BP Pulse Ox O2 Del Method O2 Flow Rate 98.6 F 99 22 H 151/91 H 97 Room Air 6 06/23/24 08:00 06/23/24 10:24 06/23/24 08:00 06/23/24 10:24 06/23/24 08:00 06/23/24 08:00 06/19/24 06:26 Narrative Exam Constitutional: NAD. Elderly male, japanese-speaking. HEENT: NCAT. Vision grossly intact. Mucous membranes moist. Respiratory: o rales, ronchi, wheezing, crackles appreciated. Cardiac: RRR. Normal S1, S2. Abdomen: Soft, non-distended, non-tender. Mild suprapubic pain. MSK: Mild R sided weakness. Skin: Warm, dry, intact. No obvious lesions. Neuro: Motor and sensation grossly intact. Psychiatric: Appropriate mood and affect. Objective Labs 06/23/24 05:45 06/23/24 05:45 Labs: Laboratory Results - last 24 hr 06/23/24 05:45 WBC 5.8 RBC 3.74 L Hgb 11.5 L Hct 33.0 L MCV 88 MCH 30.7 MCHC 34.8 RDW Std Deviation 43.4 Plt Count 306 Neut % (Auto) 64 Lymph % (Auto) 26 [place] % (Auto) 7 Eos % (Auto) 2 Baso % (Auto) 0 Neut # (Auto) 3.7 Lymph # (Auto) 1.5 [place] # (Auto) 0.4 Eos # (Auto) 0.1 Baso # (Auto) 0.0 Immature Gran # (Auto) 0.05 H Absolute Nucleated RBC 0.00 Immature Gran % 1 H Nucleated RBC % 0 Sodium 138 Potassium 3.9 Chloride 107 Carbon Dioxide 24.7 Anion Gap 6 L BUN 12 Creatinine 0.7 Estim Creat Clear Calc 89.8 eGFR > 60 BUN/Creatinine Ratio 17 Glucose 133 H Calculated Osmolality 277 Calcium 8.7 Corrected Calcium 9.3 Phosphorus 3.1 Magnesium 2.0 Total Bilirubin 0.3 AST 22 ALT 25 Alkaline Phosphatase 67 Total Protein 6.2 Albumin 3.2 L Globulin 3.0 Albumin/Globulin Ratio 1.1 L ABG Interpretation ABG results: 06/17/24 10:10 ABG pH 7.46 H ABG pCO2 35 ABG pO2 73 L ABG HCO3 25 ABG O2 Saturation 96 ABG Base Excess 1 Quality Measures Quality Measures VTE prophylaxis Advance care planning discussed with:: other Assessment & Plan Assessment Current Active Medications: Generic Name Dose Route Start Last Admin Trade Name Freq PRN Reason Stop Dose Admin Acetaminophen 650 mg 06/22/24 14:38 06/22/24 17:20 Acetaminophen Gisele 325 Mg/10 Ml Udc 07/18/24 04:58 650 mg Q6HR PRN Administration Pain 1-10 Or Fever > 100.4 Amlodipine Besylate 10 mg 06/20/24 10:30 06/23/24 10:24 Amlodipine Besylate 5 Mg Tablet 07/20/24 10:29 10 mg QDAY RE Administration Apixaban 5 mg 06/16/24 23:45 06/23/24 10:23 Apixaban 2.5 Mg Tablet 07/16/24 23:44 5 mg BID RE Administration Aspirin 81 mg 06/17/24 09:30 06/23/24 10:27 Aspirin 81 Mg Chew GT 07/17/24 09:29 81 mg QDAY RE Administration Atorvastatin Calcium 80 mg 06/17/24 21:00 06/22/24 21:11 Atorvastatin Calcium 20 Mg Tablet 07/17/24 20:59 80 mg HS RE Administration Dextrose 25 ml 06/16/24 23:43 Dextrose 50%-Water Inj 50 Ml Syringe IV 07/16/24 23:42 Q15MIN PRN BG 50-70 responsive npo pt Dextrose 50 ml 06/16/24 23:43 Dextrose 50%-Water Inj 50 Ml Syringe IV 07/16/24 23:42 Q15MIN PRN BG <50 OR BG <70 & pt unresponsive Fluconazole 200 mg 06/17/24 09:00 06/23/24 10:31 Fluconazole Susp 40 Mg/Ml Ml 06/24/24 08:59 200 mg QDAY RE Administration Glucagon 1 mg 06/16/24 23:43 Glucagon Inj 1 Mg Vial IM Q15MIN PRN BG <70, and no IV access Guaifenesin 100 mg 06/19/24 10:28 Guaifenesin Syrup 200 Mg/10 Ml [facility] 07/19/24 10:27 QID PRN COUGH Protocol Doxycycline Hyclate 100 mg/ 100 mls @ 100 mls/hr 06/18/24 09:00 06/23/24 10:30 Sodium Chloride IV 06/25/24 08:59 100 mls/hr BID RE Administration Ceftriaxone Sodium/Dextrose 2 gm in 50 mls @ 100 mls/hr 06/19/24 11:00 06/23/24 10:29 Rocephin/D5w 2gm IV 06/26/24 10:59 100 mls/hr QDAY RE Administration Insulin Glargine 10 unit 06/17/24 21:00 06/22/24 21:12 Insulin Glargine (Lantus) 5 Unit/0.05 Ml (Per 5 Units) SC 07/17/24 20:59 10 unit HS RE Administration Insulin Human Lispro 0 unit 06/17/24 00:00 06/23/24 12:00 Insulin Lispro (Admelog) 1 Unit/0.01 Ml Unit SC 07/17/24 00:00 Not Given Q6HR RE Protocol Ipratropium [place] 0.5 mg 06/21/24 14:01 Ipratropium Rt 0.5 Mg/ 2.5 Ml Nebu INH 07/17/24 00:59 Q6HRRT PRN SHORTNESS OF BREATH OR WHEEZE Protocol Levalbuterol HCl 0.63 mg 06/21/24 14:02 Levalbuterol Rt 0.63 Mg/3 Ml Nebu INH 07/17/24 00:59 Q6HRRT PRN SHORTNESS OF BREATH OR WHEEZE Protocol Magnesium Hydroxide 30 ml 06/19/24 10:35 Milk Of Magnesia Susp 30 Ml Udc GT 07/19/24 10:34 QDAY PRN CONSTIPATION Protocol Ondansetron HCl 4 mg 06/16/24 23:14 Ondansetron Inj 2 Mg/Ml Inj 2 Ml IV 07/16/24 23:13 Q6H PRN NAUSEA OR VOMITING Protocol Oxcarbazepine 300 mg 06/19/24 09:00 06/23/24 10:30 Oxcarbazepine 150 Mg Tablet (Non-Formulary) PO 07/19/24 08:59 300 mg BID RE Administration Pantoprazole Sodium 40 mg 06/17/24 09:00 06/23/24 10:27 Pantoprazole Inj 40 Mg Vial IVP 07/17/24 08:59 40 mg QDAY RE Administration Quetiapine Fumarate 25 mg 06/20/24 21:00 06/22/24 21:11 Quetiapine Fumarate 25 Mg Tablet GT 07/20/24 20:59 25 mg HS RE Administration Sennosides 8.8 mg 06/19/24 10:35 06/20/24 08:56 Sennosides Syrup 8.8 Mg/5 Ml Udc GT 07/19/24 10:34 8.8 mg QDAY PRN Administration CONSTIPATION Protocol Sodium Chloride 3 ml 06/16/24 20:09 06/16/24 20:18 Sodium Chloride Rt Gisele 0.9% 3 Ml Nebu INH 07/16/24 20:08 3 ml PRN PRN Administration SOLN Plan 79-year-old Uzbek-speaking male with 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 #Sepsis, resolved #Community acquired pneumonia Patient met 4/4 SIRS criteria with leukocytosis, tachycardia, tachypnea, and fever, with source pneumonia. Patient was hypoxic, not previously on oxygen. UA was negative. Procal was negative. COVID negative. Flu and RSV negative. Blood and sputum culture grew GPC, speciation appears to be contaminant. Repeat blood cultures drawn. Patient azithromycin changed to doxycycline, Rocephin increased to 2 g daily. Patient shows clinical improvement on current regimen. Blood and sputum cultures likely contaminant. Repeat blood cultures negative. - Rocephin 06/19- - Doxycycline 100 mg IV twice daily 06/18- - DuoNebs ipratropium and levalbuterol q6h scheduled - Chest physiotherapy #Delirium, hospital induced, improved Overnight patient became agitated, pulling at lines, trying to get out of bed. Patient received 25 mg Seroquel, showed improvement. Patient became agitated again requiring wrist restraint for few hours. In the morning patient was again agitated, pulling at lines. Mitten was placed on left hand. - Delirium precautions - Seroquel 25 mg G-tube at bedtime #History of coccidioidomycosis Patient has fluconazole 200 mg qday listed as home medication, started on admission to the SNF on 05/29/2024 and listed as precribed for 6 month course. Cocci IgM negative 06/16/24. Cocci IgG positive. - Continue fluconazole 200 mg qday #Hypernatremia, resolved #Hyperglycemia, resolved #Troponinemia, likey Type 2, resolved #History of CVA with right sided residual deficits Head CT shows old stroke in the left brainstem pontine area consistent with patient's current baseline neurologic status. - Continue home aspirin 81 mg qday - Continue home atorvastatin 80 mg HS - Continue home oxcarbazepine 300 mg twice daily for neuropathic pain #History of hypertension - Restart home amlodipine #History of PE Unknown when patient was diagnosed with PE. - Continue home Eliquis 5 mg BID #Dysphagia s/p G-tube placement Placed after patient had stroke 3 months back resulting in residual dysphagia. Per facility, patient on Jevity with 240 ml free water flushes q6h. - Resumed tube feeds DVT prophylaxis: Eliquis GI prophylaxis: Protonix Diet: PEG tube feeds, pur?ed food for pleasure eating. Lines: Peripheral IV Code status: DNR I have reviewed and discussed the patient's care with my attending, Dr. Vernon Atkins MD PGY-3
[2024-06-23] MEDS: VANCOMYCIN/WATER 1250 MG IVPB 250 ML 120 MG IV (17:54)
[2024-06-23] MEDS: QUEtiapine FUMARATE 25 MG TABLET GT (21:55)
[2024-06-23] MEDS: ATORVASTATIN CALCIUM 20 MG TABLET 80 MG GT (21:55)
[2024-06-23] MEDS: INSULIN GLARGINE (Lantus) 5 UNIT/0.05 ML (PER 5 UNITS) 10 UNIT SC (21:59)
[2024-06-24] VITALS (9 sets, daily range): BP systolic 127–144; BP diastolic 74–87; PULSE 79–90; RESP 17–20; TEMP 36.5–37; O2SAT 95–100
[2024-06-24 06:06] LABS: Basophils % (Auto) 0 % (0-2.5); Eosinophils # (Auto) 0.1 Thou/mm3 (0.0-0.5); Eosinophils % (Auto) 2 % (0-10); Hematocrit 32.4 % (41.0-53.0); Hemoglobin 11.6 g/dL (13.5-16.0); Immature Granulocytes % (Auto) 1 % (0-0); Immature Granulocytes Auto 0.06 Thou/mm3 (0.00-0.00); Lymphocytes # (Auto) 1.8 Thou/mm3 (1.0-4.8); Lymphocytes % (Auto) 29 % (10-50); Mean Corpuscular HGB Conc 35.8 g/dl (31.0-37.0); Mean Corpuscular Hemoglobin 31.7 pg (25.0-35.0); Mean Corpuscular Volume 89 fL (80-100); Monocytes # (Auto) 0.5 Thou/mm3 (0.0-0.8); Monocytes % (Auto) 8 % (0-12); Neutrophils # (Auto) 3.7 Thou/mm3 (1.8-7.7); Neutrophils % (Auto) 60 % (37-80); Nucleated Red Blood Cell % 0 /100 WBC (0); Platelet Count 302 Thou/mm3 (140-440); RDW Standard Deviation 44.9 fL (35.1-43.9); Red Blood Count 3.66 Miln/mm3 (4.50-5.90); White Blood Count 6.1 Thou/mm3 (3.8-10.6)
[2024-06-24 06:38] LABS: Alanine Aminotransferase 22 U/L (10-49); Alkaline Phosphatase 70 U/L (46-116); Anion Gap 9 (7-16); Aspartate Amino Transferase 18 U/L (0-34); BUN/Creatinine Ratio 18 Ratio (12-20); Bilirubin,Total 0.3 mg/dL (0.3-1.2); Blood Urea Nitrogen 11 mg/dL (9-23); Calcium 8.3 mg/dL (8.3-10.6); Calcium (Corrected) 9.1 mg/dL (8.5-10.1); Carbon Dioxide 23.9 mMol/L (20.0-31.0); Chloride 108 mMol/L (98-107); Creatinine (Component) 0.6 mg/dL (0.6-1.3); Estimated Creatinine Clearance 104.8 mL/min (>60); Glucose 139 mg/dL (74-106); Magnesium 2.1 mg/dL (1.6-2.6); Osmolality,Calculated 282 (275-295); Phosphorous 3.1 mg/dL (2.4-5.1); Potassium 3.5 mMol/L (3.4-5.1); Sodium 141 mMol/L (136-145); eGFR > 60 See Note
[2024-06-24] MEDS: OXCARBazepine 150 MG TABLET (NON-FORMULARY) 300 MG PO ×2 (09:17→20:56)
[2024-06-24] MEDS: cefTRIAXone/D5w 2gm 2 GM/50 ML BAG IV (09:17)
[2024-06-24] MEDS: PANTOPRAZOLE INJ 40 MG VIAL IVP (09:17)
[2024-06-24] MEDS: ASPIRIN 81 MG CHEW GT (09:17)
[2024-06-24] MEDS: SENNOSIDES SYRUP 8.8 MG/5 ML UDC GT (09:17)
[2024-06-24] MEDS: amLODIPine BESYLATE 5 MG TABLET 10 MG GT (09:18)
[2024-06-24] MEDS: APIXABAN 2.5 MG TABLET 5 MG GT ×2 (09:18→20:57)
[2024-06-24] MEDS: VANCOMYCIN/WATER 1250 MG IVPB 250 ML 120 MG IV ×2 (10:50→21:21)
--- NOTE | 2024-06-24 16:19 | PD.HHPROG ---
Documentation for date of: 06/24/24 Subjective - Hospitalist Subjective Interval history: Patient seen and examined at bedside. No overnight events. Patient was he is doing well today, still with some garbled speech and appears to be coughing Otherwise, no overnight events, afebrile, no acute complaints Exam Vital Signs Temp Pulse Resp BP Pulse Ox O2 Del Method O2 Flow Rate 97.7 F 89 18 137/87 H 97 Room Air 6 06/24/24 16:00 06/24/24 16:00 06/24/24 16:00 06/24/24 16:00 06/24/24 16:06/24/24 16:00 06/19/24 06:26 Narrative General: No acute distress HEENT: Garbled speech, otherwise clear CVS S1-S2 present, regular rate and rhythm Resp: Upper airway congestion, lungs clear to auscultation bilaterally GI: Soft, nontender, nondistended Objective - Hospitalist Labs Diagram: 06/24/24 04:10 06/24/24 04:10 Labs: Laboratory Results - last 24 hr 06/24/24 04:10 WBC 6.1 RBC 3.66 L Hgb 11.6 L Hct 32.4 L MCV 89 MCH 31.7 MCHC 35.8 RDW Std Deviation 44.9 H Plt Count 302 Neut % (Auto) 60 Lymph % (Auto) 29 [place] % (Auto) 8 Eos % (Auto) 2 Baso % (Auto) 0 Neut # (Auto) 3.7 Lymph # (Auto) 1.8 [place] # (Auto) 0.5 Eos # (Auto) 0.1 Baso # (Auto) 0.0 Immature Gran # (Auto) 0.06 H Absolute Nucleated RBC 0.00 Immature Gran % 1 H Nucleated RBC % 0 Sodium 141 Potassium 3.5 Chloride 108 H Carbon Dioxide 23.9 Anion Gap 9 BUN 11 Creatinine 0.6 Estim Creat Clear Calc 104.8 eGFR > 60 BUN/Creatinine Ratio 18 Glucose 139 H Calculated Osmolality 282 Calcium 8.3 Corrected Calcium 9.1 Phosphorus 3.1 Magnesium 2.1 Total Bilirubin 0.3 AST 18 ALT 22 Alkaline Phosphatase 70 Total Protein 6.0 Albumin 3.0 L Globulin 3.0 Albumin/Globulin Ratio 1.0 L ABG Interpretation ABG results: 06/17/24 10:10 ABG pH 7.46 H ABG pCO2 35 ABG pO2 73 L ABG HCO3 25 ABG O2 Saturation 96 ABG Base Excess 1 Assessment & Plan Plan: 79-year-old [place] Islander-speaking male with 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 #Sepsis, resolved #Community acquired pneumonia Patient met 4/4 SIRS criteria with leukocytosis, tachycardia, tachypnea, and fever, with source pneumonia. Patient was hypoxic, not previously on oxygen. UA was negative. Procal was negative. COVID negative. Flu and RSV negative. Blood and sputum culture grew GPC, speciation appears to be contaminant. Repeat blood cultures drawn. Patient azithromycin changed to doxycycline, Rocephin increased to 2 g daily. Patient shows clinical improvement on current regimen. Blood and sputum cultures likely contaminant. Repeat blood cultures negative. - Rocephin 06/19- - Doxycycline 100 mg IV twice daily 06/18- - DuoNebs ipratropium and levalbuterol q6h scheduled - Chest physiotherapy #Delirium, hospital induced, improved Overnight patient became agitated, pulling at lines, trying to get out of bed. Patient received 25 mg Seroquel, showed improvement. Patient became agitated again requiring wrist restraint for few hours. In the morning patient was again agitated, pulling at lines. Mitten was placed on left hand. - Delirium precautions - Seroquel 25 mg G-tube at bedtime #History of coccidioidomycosis Patient has fluconazole 200 mg qday listed as home medication, started on admission to the SNF on 05/29/2024 and listed as precribed for 6 month course. Cocci IgM negative 06/16/24. Cocci IgG positive. - Continue fluconazole 200 mg qday #Hypernatremia, resolved #Hyperglycemia, resolved #Troponinemia, likey Type 2, resolved #History of CVA with right sided residual deficits Head CT shows old stroke in the left brainstem pontine area consistent with patient's current baseline neurologic status. - Continue home aspirin 81 mg qday - Continue home atorvastatin 80 mg HS - Continue home oxcarbazepine 300 mg twice daily for neuropathic pain #History of hypertension - Restart home amlodipine #History of PE Unknown when patient was diagnosed with PE. - Continue home Eliquis 5 mg BID #Dysphagia s/p G-tube placement Placed after patient had stroke 3 months back resulting in residual dysphagia. Per facility, patient on Jevity with 240 ml free water flushes q6h. - Resumed tube feeds DVT prophylaxis: Eliquis GI prophylaxis: Protonix Diet: PEG tube feeds, pur?ed food Lines: Peripheral IV Code status: DNR Dispo: Patient doing well, anticipate SNF placement tomorrow pending insurance authorization Melo Junior MD Time Spent with Patient Time: Total time spent is greater than 50% in coordination of care (as documented) at patient's floor/unit and/or counseling patient: 30 Time with patient: 25 - 35 minutes Reason for Continued Stay Reason for continued stay: other Quality Measures Quality Measures VTE prophylaxis Advance care planning discussed with:: other
[2024-06-24] MEDS: QUEtiapine FUMARATE 25 MG TABLET GT (20:56)
[2024-06-24] MEDS: ATORVASTATIN CALCIUM 20 MG TABLET 80 MG GT (20:56)
[2024-06-24] MEDS: INSULIN GLARGINE (Lantus) 5 UNIT/0.05 ML (PER 5 UNITS) 10 UNIT SC (20:57)
[2024-06-25] VITALS (8 sets, daily range): BP systolic 126–145; BP diastolic 70–80; PULSE 75–95; RESP 16–23; TEMP 36.5–36.8; O2SAT 96–99; BMI 27.1; BMI 12.0
[2024-06-25] MEDS: INSULIN LISPRO (AdmeLOG) 1 UNIT/0.01 ML UNIT SC ×2 (06:12→11:36)
[2024-06-25 06:21] LABS: Basophils % (Auto) 0 % (0-2.5); Eosinophils # (Auto) 0.1 Thou/mm3 (0.0-0.5); Eosinophils % (Auto) 2 % (0-10); Hematocrit 32.1 % (41.0-53.0); Hemoglobin 11.3 g/dL (13.5-16.0); Immature Granulocytes % (Auto) 1 % (0-0); Immature Granulocytes Auto 0.04 Thou/mm3 (0.00-0.00); Lymphocytes # (Auto) 1.5 Thou/mm3 (1.0-4.8); Lymphocytes % (Auto) 26 % (10-50); Mean Corpuscular HGB Conc 35.2 g/dl (31.0-37.0); Mean Corpuscular Volume 88 fL (80-100); Monocytes # (Auto) 0.4 Thou/mm3 (0.0-0.8); Monocytes % (Auto) 8 % (0-12); Neutrophils # (Auto) 3.5 Thou/mm3 (1.8-7.7); Neutrophils % (Auto) 63 % (37-80); Nucleated Red Blood Cell % 0 /100 WBC (0); Platelet Count 303 Thou/mm3 (140-440); Red Blood Count 3.65 Miln/mm3 (4.50-5.90); White Blood Count 5.5 Thou/mm3 (3.8-10.6)
[2024-06-25 06:47] LABS: Osmolality, Urine* 833 mOsm/kg (50-1200)
[2024-06-25 06:48] LABS: Alanine Aminotransferase 21 U/L (10-49); Albumin, Serum 3.1 gm/dL (3.4-4.8); Albumin/Globulin Ratio 1.1 (1.2-2.2); Alkaline Phosphatase 71 U/L (46-116); Anion Gap 9 (7-16); Aspartate Amino Transferase 21 U/L (0-34); BUN/Creatinine Ratio 20 Ratio (12-20); Bilirubin,Total 0.3 mg/dL (0.3-1.2); Blood Urea Nitrogen 12 mg/dL (9-23); Calcium 8.5 mg/dL (8.3-10.6); Calcium (Corrected) 9.2 mg/dL (8.5-10.1); Carbon Dioxide 23.3 mMol/L (20.0-31.0); Chloride 109 mMol/L (98-107); Creatinine (Component) 0.6 mg/dL (0.6-1.3); Estimated Creatinine Clearance 104.8 mL/min (>60); Globulin 2.9 gm/dL (2.3-3.5); Glucose 155 mg/dL (74-106); Osmolality,Calculated 283 (275-295); Phosphorous 3.3 mg/dL (2.4-5.1); Potassium 3.5 mMol/L (3.4-5.1); Sodium 141 mMol/L (136-145); eGFR > 60 See Note
[2024-06-25] MEDS: PANTOPRAZOLE INJ 40 MG VIAL IVP (08:14)
[2024-06-25] MEDS: ASPIRIN 81 MG CHEW GT (08:14)
[2024-06-25] MEDS: APIXABAN 2.5 MG TABLET 5 MG GT (08:15)
[2024-06-25] MEDS: cefTRIAXone/D5w 2gm 2 GM/50 ML BAG IV (08:15)
[2024-06-25] MEDS: amLODIPine BESYLATE 5 MG TABLET 10 MG GT (08:15)
[2024-06-25] MEDS: OXCARBazepine 150 MG TABLET (NON-FORMULARY) 300 MG PO (08:15)
[2024-06-25] MEDS: ACETAMINOPHEN SOL 325 MG/10 ML UDC 650 MG GT (12:37)
--- NOTE | 2024-06-25 14:50 | PC.SS ---
Addendum entered by Norma Packer 06/25/24 15:33: SS follow up note; SS contacted Pippa from [facility] and informed her that patient will be transporting back to [facility] at 1630. Addendum entered by Norma Packer 06/25/24 15:30: SS follow up note; ETA for transportation is 1630. Addendum entered by Norma Packer 06/25/24 15:27: SS follow up note; SS received a call from [facility] and set up transportation for patient to return back to [facility]. SS attempted to contact patient's daughter, Meme Dey [phone]. [facility] attempted to contact patient's and unable to leave . Original Note: SS follow up note; SS set up transportation with [facility], Reference# [id number].
[2024-06-25] MEDS: TAMSULOSIN HCL 0.4 MG CAPSULE PO (14:57)
--- NOTE | 2024-06-25 14:57 | ESDS_ITS ---
Planned Discharge Date 06/25/24 DS: Providers Provider Date of admission: 06/16/24 23:14 Primary care physician: Fabian Rashid MD Admitting Provider: Terry Martin DO Attending Provider on Admission: Rafael Carvalho MD Consults: 06/16/24 23:55 Referral Registered Dietitian Stat Comment: Patient is G-tube dependent, from [facility] 06/18/24 09:25 Referral Speech Therapy Routine Comment: 06/21/24 15:21 Referral Physical Therapy Routine Comment: Physician Instructions: Attending Provider on DC: Rafael Carvalho MD Discharging Provider: Rafael Carvalho MD DS: Diagnosis Problem List Completed Was Problem List Reviewed/Reconciled?: Yes Hospital Course Hospital Course Hospital course: 79-year-old male with past medical history of CVA (3 months ago) with residual right-sided hemiplegia, aphasia, and dysphagia s/p PEG tube, PE (on Eliquis), GERD, coccidiomycosis (on fluconazole), and hypertension was admitted to the hospital 06/16/2024 due to sepsis likely secondary to community-acquired pneumonia. Initially patient came into the ER with complaints of altered mental status, fever, tachycardia, cough, and chest congestion. Initially patient was tachypneic, hypertensive, tachycardic, febrile, and hypoxic. Initial labs were relevant for leukocytosis (17.7), hyponatremia (154), lactic acidosis (2.5), elevated troponins (peaked at 0.068 and down trended), and UA was positive for bacteria. Initial imaging included chest x-ray which showed pneumonia of the left face, head CT which was negative for acute hemorrhage, mass effect, or midl ine shift, and EKG which showed sinus tachycardia. Initially patient was placed on azithromycin and Rocephin for his pneumonia and he was given D5W for his hyponatremia. His antibiotics were later switched to doxycycline and ceftriaxone as sputum cultures grew GPC's 1 of 2 bottles. Patient blood culture grew Staphylococcus auricularis, which most likely was contaminant as patient continued to improve even though patient was on Rocephin and doxycycline to which this bacteria was resistant. Over the hospital stay patient remained stable, but a voiding trial was tried, which she failed due to urinary retention. Patient also developed hospital induced delirium, but seroquel was started and patient significantly improved. Patient continued to saturate well on his hospital stay on room air, but his discharge was delayed due to insurance authorization for [facility] facility. On the day of discharge patient was stable enough to be discharged to [facility] facility. Discharge plan: Please follow-up with primary care physician in 1 after discharge Please follow-up with urologist as an outpatient for urine retention. If not available please do voiding trial in 10 days. You have been started on the following medications: Seroquel 25 mg via G-tube at night for sleeping Started on Flomax 0.4 mg daily Please continue taking all previous medications as previously prescribed Please return to the ED if you have new or worsening symptoms, including altered mental status or fevers. Problem list: #Sepsis, resolved #Community acquired pneumonia #Delirium, hospital induced, improved #History of coccidioidomycosis #Hypernatremia, resolved #Hyperglycemia, resolved #Troponinemia, likey Type 2, resolved #History of CVA with right sided residual deficits #History of hypertension #History of PE #Dysphagia s/p G-tube placement Case disclosed with Attending Dr. Carvalho and My senior Dr. Atkins PGY3. Arthur Fitzgerald PGY1 Status at Discharge Overall status at discharge: patient is progressing back to baseline Time Spent with Patient Time attestation: Total time spent providing and/or coordinating discharge services:>35 min Exam Vital Signs Temp Pulse Resp BP Pulse Ox O2 Del Method O2 Flow Rate 98.3 F 95 18 145/74 H 97 Room Air 6 06/25/24 08:00 06/25/24 12:00 06/25/24 08:40 06/25/24 08:15 06/25/24 08:40 06/25/24 04:00 06/19/24 06:26 Narrative Exam General: A/O x1 (person only), no acute distress Eyes: PERRL, EOMI. Anicteric, vision grossly intact. Ears: No ear pain, no ear discharge, Hearing grossly intact. Nose: No nasal discharge. Mouth/Throat: Moist mucous membranes, no redness, no lesions. Neck: Neck supple, non-tender, no cervical lymphadenopathy. Lungs: Clear THEA to auscultation and percussion, No accessory muscle use. Cardio: Normal S1/S2, regular rhythm, no murmurs, no JVD Abdomen: Soft, non-tender, no palpable masses, peristalsis present, no guarding or rebound. Extremities: Symmetrical, no significant deformities, no peripheral edema , non-tender, peripheral pulses presents. Skin: No rashes, no lesions, warm to touch. Neuro: R sided hemiplegia and aphasia appreciated, L side motor and sensory intact. Discharge Plan Plan Patient Disposition: Xfer Skilled Nsg Fac (SNF) Patient condition on transfer: Stable Care Plan Goals: Please follow-up with primary care physician in 1 after discharge Please follow-up with urologist as an outpatient for urine retention. If not available please do voiding trial in 10 days. You have been started on the following medications: Seroquel 25 mg via G-tube at night for sleeping Started on Flomax 0.4 mg daily Please continue taking all previous medications as previously prescribed Please return to the ED if you have new or worsening symptoms, including altered mental status or fevers. Prescriptions/Referrals Prescriptions/Med Rec: New acetaminophen 325 mg/10.15 mL Solution 650 mg G-tube Q6HR PRN (Reason: Pain 1-10 Or Fever > 100.4) Qty: 1015 0RF quetiapine 25 mg Tablet 25 mg G-tube HS Qty: 30 0RF tamsulosin 0.4 mg Capsule 0.4 mg PO QDAY 30 Days Qty: 30 0RF Continued atorvastatin [Lipitor] 80 mg Tablet 80 mg feeding tube QDAY aspirin 325 mg Tablet 325 mg feeding tube QDAY fluconazole 200 mg tablet 200 mg feeding tube QDAY oxcarbazepine 300 mg tablet 300 mg feeding tube BID melatonin 3 mg Tablet 3 mg PO HS PRN (Reason: Insomnia) tramadol 50 mg tablet 50 mg feeding tube Q6H PRN (Reason: pain 6-9) famotidine 20 mg tablet 20 mg feeding tube QDAY amlodipine 10 mg tablet 10 mg feeding tube QDAY Rx Instructions: hold if sbp <110 HR <60 docusate sodium 100 mg Tablet 100 mg PO QDAY Rx Instructions: give through feeding tube fenofibrate nanocrystallized 145 mg tablet 145 mg QDAY Rx Instructions: give via feeding tube Eliquis 5 mg tablet 5 mg feeding tube BID guaifenesin 600 mg Tablet Extended Release 12hr 600 mg PO Q12H Rx Instructions: Give until 06/19/24 Discontinued acetaminophen 650 mg Tablet 650 mg PO Q4H PRN (Reason: Pain (Scale Score 1-3)) Referrals: Fabian Rashid MD [Primary Care Provider] - Patient/Caregiver Discharge Instructions Discharge Activity: activity as tolerated Other Discharge Activity Instructions:: Please follow-up with primary care physician in 1 after discharge Please follow-up with urologist as an outpatient for urine retention. If not available please do voiding trial in 10 days. You have been started on the following medications: Seroquel 25 mg via G-tube at night for sleeping Started on Flomax 0.4 mg daily Please continue taking all previous medications as previously prescribed Please return to the ED if you have new or worsening symptoms, including altered mental status or fevers. Education Materials: What Is Pneumonia?, Preventing Pneumonia, Sepsis, Preventing Common Respiratory ..., ED Pneumonia (Adult) Print Language: [place] Stand Alone Forms: Bina Award Info., Patient Portal Info Letter Discharge Order Discharge Orders: Discharge (Routine); Ordered 06/25/24 Ordered By: Rafael (HOSPITALIST) Maia Quality Discharge Quality Measures VTE prophylaxis Attestestation MD Attestation Face to face evaluation was performed by me. I have personally seen and examined the patient. I discussed the assessment and plan with the entire medicine team. I reviewed available medical records, imaging studies, laboratory results. I agree with the above subjective data, objective findings, assessment and plan except as corrected by me or noted below Sepsis, was POA, without septic shock, due to below -sepsis resolved #Community acquired pneumonia #Delirium, hospital induced, improved #History of coccidioidomycosis [facility] for dc
== END 2024-06-25 16:31 | disposition skilled nursing facility (03) | DRG 871 ==
LOC: SERX 21:55 → SERHOLD 23:42 → S3NX 06-17 01:47
PROVIDERS: Nurse Practitioner Family; Student in an Organized Health Care Education/Training Program; Admitting Provider Student in an Organized Health Care Education/Training Program; Emergency Provider Emergency Medicine; PCP Hospitalist; Visit Provider Internal Medicine
DX: A41.1 Sepsis due to other specified staphylococcus (principal); J18.9 Pneumonia, unspecified organism; E87.0 Hyperosmolality and hypernatremia; E87.20 Acidosis, unspecified; I69.351 Hemiplegia and hemiparesis following cerebral infarction affecting right dominant side; N17.9 Acute kidney failure, unspecified; F05 Delirium due to known physiological condition; B38.0 Acute pulmonary coccidioidomycosis; E11.65 Type 2 diabetes mellitus with hyperglycemia; E86.0 Dehydration; I10 Essential (primary) hypertension; I49.3 Ventricular premature depolarization; I69.320 Aphasia following cerebral infarction; R13.10 Dysphagia, unspecified; Z66 Do not resuscitate; Z93.1 Gastrostomy status; Z78.1 Physical restraint status; Z79.01 Long term (current) use of anticoagulants; Z79.82 Long term (current) use of aspirin; Z79.899 Other long term (current) drug therapy; Z86.711 Personal history of pulmonary embolism; R09.02 Hypoxemia; Z11.52 Encounter for screening for COVID-19; R45.1 Restlessness and agitation; R33.9 Retention of urine, unspecified
CPT/HCPCS: 36415; 36600; 70450; 71045; 80048; 80053; 80061; 80202; 81001; 82436; 82570; 82803; 83036; 83605; 83615; 83690; 83735; 83880; 83935; 84100; 84133; 84145; 84295; 84300; 84484; 85025; 85610; 85730; 86331; 86635; 87040; 87077; 87081; 87086; 87186; 87205; 87502; 87634; 87811; 89220; 92526; 92610; 93005; 93225; 94640; 94667; 96365; 96366; 96367; 96372; 97162; 99285; J0131; J0456; J0696; J1815; J2470; J3372; J3490; J7030; J7040; J7050; J7070; A9270

== ENCOUNTER 2024-08-01 18:05 | Emergency (ER) | payer OTHER, MEDICAID, SELFPAY ==
--- NOTE | 2024-08-01 18:35 | EDRME_ITS ---
Rapid Medical Screening Exam [facility] Arrival date/time: 08/01/24 18:05 [facility] Narrative: Mr. Aguilar is coming from [facility] with a reported of vomiting x 1 and generalized weakness. No one witnessed him vomiting blood. Per EMS when they picked him up his heart rate was 107, temperature of 100, blood pressure 147/68. He did not seem to be in any acute distress. I have greeted and performed a focused initial assessment of this patient. A comprehensive ED assessment and evaluation of the patient, analysis of all test results, and completion of the medical decision making process will be conducted by additional ED providers.
[2024-08-01 18:53] VITALS: BP 128/73; PULSE 107; RESP 18; TEMP 37.3; O2SAT 95
[2024-08-01 18:54] VITALS: PULSE 107; RESP 20; O2SAT 93
[2024-08-01 18:57] VITALS: BMI 27.3
[2024-08-01 19:34] LABS: Basophils % (Auto) 0 % (0-2.5); Eosinophils % (Auto) 0 % (0-10); Hemoglobin 13.5 g/dL (13.5-16.0); Immature Granulocytes % (Auto) 0 % (0-0); Immature Granulocytes Auto 0.02 Thou/mm3 (0.00-0.00); Lymphocytes # (Auto) 1.3 Thou/mm3 (1.0-4.8); Lymphocytes % (Auto) 13 % (10-50); Mean Corpuscular HGB Conc 34.6 g/dl (31.0-37.0); Mean Corpuscular Hemoglobin 30.1 pg (25.0-35.0); Mean Corpuscular Volume 87 fL (80-100); Monocytes # (Auto) 0.8 Thou/mm3 (0.0-0.8); Monocytes % (Auto) 8 % (0-12); Neutrophils # (Auto) 7.6 Thou/mm3 (1.8-7.7); Neutrophils % (Auto) 79 % (37-80); Nucleated Red Blood Cell % 0 /100 WBC (0); Platelet Count 298 Thou/mm3 (140-440); RDW Standard Deviation 45.9 fL (35.1-43.9); Red Blood Count 4.48 Miln/mm3 (4.50-5.90); White Blood Count 9.7 Thou/mm3 (3.8-10.6)
[2024-08-01 19:56] LABS: Alanine Aminotransferase 10 U/L (10-49); Albumin, Serum 3.6 gm/dL (3.4-4.8); Albumin/Globulin Ratio 1.2 (1.2-2.2); Alkaline Phosphatase 56 U/L (46-116); Anion Gap 11 (7-16); Aspartate Amino Transferase 15 U/L (0-34); BUN/Creatinine Ratio 32 Ratio (12-20); Bilirubin,Total 0.7 mg/dL (0.3-1.2); Blood Urea Nitrogen 32 mg/dL (9-23); Calcium 9.4 mg/dL (8.3-10.6); Calcium (Corrected) 9.7 mg/dL (8.5-10.1); Carbon Dioxide 25.2 mMol/L (20.0-31.0); Chloride 105 mMol/L (98-107); Estimated Creatinine Clearance 58.9 mL/min (>60); Globulin 3.1 gm/dL (2.3-3.5); Glucose 157 mg/dL (74-106); Osmolality,Calculated 291 (275-295); Potassium 4.2 mMol/L (3.4-5.1); Sodium 141 mMol/L (136-145); Total Protein 6.7 gm/dL (5.7-8.2); Troponin I < 0.020 ng/mL (0.0-0.045); eGFR > 60 See Note
[2024-08-01 20:00] VITALS: BP 142/74; PULSE 105; RESP 18; TEMP 38.1; O2SAT 95
--- NOTE | 2024-08-01 20:06 | XR_ITS ---
Examination: AP chest single view Technique: AP portable upright chest single view Exam date and time: August 01, 2024 1915 hrs. Comparison June 17 25 Indications: Sepsis protocol. Findings: Minor atelectasis left base Reduced inspiratory effort No lobar pneumonia Mild vascular congestion. Impression: Poor inspiratory effort chest x-ray
--- NOTE | 2024-08-01 20:06 | PD.EDWEAK ---
ED Weakness RME/HPI General Chief complaint: Weakness Stated complaint: WEAKNESS Time Seen by Provider: 08/01/24 18:47 Source: patient and EMS Arrival date/time: 08/01/24 18:05 Mode of arrival: EMS Limitations: no limitations RME / HPI RME / HPI Narrative: Mr. Aguilar is coming from [facility] with a reported of vomiting x 1 and generalized weakness. No one witnessed him vomiting blood. Per EMS when they picked him up his heart rate was 107, temperature of 100, blood pressure 147/68. He did not seem to be in any acute distress. I have greeted and performed a focused initial assessment of this patient. A comprehensive ED assessment and evaluation of the patient, analysis of all test results, and completion of the medical decision making process will be conducted by additional ED providers. Related Data Home Medications ?Medication ?Instructions ?Recorded ?Confirmed amlodipine 10 mg tablet 10 mg feeding tube QDAY 06/17/24 06/17/24 apixaban 5 mg tablet (Eliquis) 5 mg feeding tube BID 06/17/24 06/17/24 aspirin 325 mg tablet 325 mg feeding tube QDAY 06/17/24 06/17/24 atorvastatin 80 mg tablet (Lipitor) 80 mg feeding tube QDAY 06/17/24 06/17/24 docusate sodium 100 mg tablet 100 mg PO QDAY 06/17/24 06/17/24 famotidine 20 mg tablet 20 mg feeding tube QDAY 06/17/24 06/17/24 fenofibrate nanocrystallized 145 145 mg QDAY 06/17/24 06/17/24 mg tablet fluconazole 200 mg tablet 200 mg feeding tube QDAY 06/17/24 06/17/24 guaifenesin 600 mg tablet, 600 mg PO Q12H 06/17/24 06/17/24 extended release 12 hr melatonin 3 mg tablet 3 mg PO HS PRN Insomnia 06/17/24 06/17/24 oxcarbazepine 300 mg tablet 300 mg feeding tube BID 06/17/24 06/17/24 tramadol 50 mg tablet 50 mg feeding tube Q6H PRN pain 6-9 06/17/24 06/17/24 Previous Rx's ?Medication ?Instructions ?Recorded acetaminophen 325 mg/10.15 mL oral 650 mg (20.3 mL) G-tube Q6HR PRN 06/20/24 solution Pain 1-10 Or Fever > 100.4 #1,015 mL quetiapine 25 mg tablet 25 mg G-tube HS #30 tabs 06/20/24 Allergies Allergy/AdvReac Type Severity Reaction Status Date / Time No Known Allergies Allergy Verified 08/01/24 18:59 Review of Systems Review of Systems Systems Reviewed: All systems reviewed, normal except as documented Past Medical History Past Medical History NEUROLOGIC: Positive Neurological Disorders and Cerebrovascular Accident CARDIAC: Positive Cardiac Disorders and Hypercholesterolemia; Negative Congestive Heart Failure RESPIRATORY: Negative Chronic Obstructive Pulmonary Disease (COPD) GASTROINTESTINAL: Negative Gastrointestinal Disorders GENITOURINARY: Negative Genitourinary Disorders or Renal Disease MUSCULOSKELETAL: Negative Musculoskeletal Disorders ENDOCRINE: Positive Endocrine Disorders and Diabetes Mellitus Type 2; Negative Diabetes Mellitus Type 1 HEMATOLOGIC: Negative Blood Disorders OTHER HISTORY: Negative Cancer Surgical History SURGICAL: Positive Abdominal Surgery (peg tube placement) Social History SMOKING STATUS: Never smoker SECOND HAND EXPOSURE: No ED Exam Narrative Physical exam: GENERAL: In general the patient is awake, interactive, in an emergency department gurney. HEAD/EYES/EARS/NOSE/THROAT: normo-cephalic, atraumatic, mucus membranes are moist. No cervical tenderness palpation midline. Supple neck. CARDIOVASCULAR: regular rate and regular rhythm, no murmurs, heart sounds are not distant, strong pulses in all four extremities that are equal and symmetric bilateral upper and lower extremities, normal capillary refill. CHEST/PULMONARY: normal chest rise and fall, good air movement, clear to auscultation bilaterally, normal inspiratory to expiratory ratios without evidence of respiratory distress. ABDOMEN: soft, not tender, no masses appreciated BACK: normal range of motion without pain. NEUROLOGICAL: cranio-facial features are symmetric, moves all four extremities equally without obvious limitations or weakness. EXTREMITY: no tenderness to palpation over the long bones or large joints of the bilateral upper and lower extremities, no joint swelling, no joint erythema, no signs of trauma, no unilateral leg swelling and no peripheral edema. SKIN: warm, dry, well-perfused, no jaundice, no rash, no telangiectasias or petechia. PSYCH: calm, cooperative, no evidence of psychosis or agitation General Limitations: Present no limitations Course Quality Measures none Orders Category Date Time Status CBC Stat Lab 08/01/24 17:05 Completed CMP [Comprehensive Metabolic Panel] Stat Lab 08/01/24 17:05 Completed Troponin I Stat Lab 08/01/24 17:05 Completed Urinalysis Stat Lab 08/01/24 18:37 Ordered Vital Signs Vital signs: Vital Signs Temperature 99.2 F 08/01/24 18:53 Pulse Rate 107 H 08/01/24 18:53 Respiratory Rate 18 08/01/24 18:53 Blood Pressure 128/73 08/01/24 18:53 Pulse Oximetry (%) 95 08/01/24 18:53 Oxygen Delivery Method Room Air 08/01/24 18:53 Weakness MDM Narrative MDM Narrative:: Scribe Attestation: Trish Pablo am scribing for and in the presence of Dr. Fung. Provider Notation: Although this document has been carefully reviewed, there may still be some phonetic and other typographical errors. These errors are purely grammatical due to imperfections in the software program and should not be construed in any way to compromise the substance of the patient's medical care during this visit. Discharge Plan Prescriptions/Referrals Prescriptions/Med Rec: No Action atorvastatin [Lipitor] 80 mg Tablet 80 mg feeding tube QDAY aspirin 325 mg Tablet 325 mg feeding tube QDAY fluconazole 200 mg tablet 200 mg feeding tube QDAY oxcarbazepine 300 mg tablet 300 mg feeding tube BID melatonin 3 mg Tablet 3 mg PO HS PRN (Reason: Insomnia) tramadol 50 mg tablet 50 mg feeding tube Q6H PRN (Reason: pain 6-9) famotidine 20 mg tablet 20 mg feeding tube QDAY amlodipine 10 mg tablet 10 mg feeding tube QDAY Rx Instructions: hold if sbp <110 HR <60 docusate sodium 100 mg Tablet 100 mg PO QDAY Rx Instructions: give through feeding tube fenofibrate nanocrystallized 145 mg tablet 145 mg QDAY Rx Instructions: give via feeding tube Eliquis 5 mg tablet 5 mg feeding tube BID guaifenesin 600 mg Tablet Extended Release 12hr 600 mg PO Q12H Rx Instructions: Give until 06/19/24 acetaminophen 325 mg/10.15 mL Solution 650 mg G-tube Q6HR PRN (Reason: Pain 1-10 Or Fever > 100.4) Qty: 1015 0RF quetiapine 25 mg Tablet 25 mg G-tube HS Qty: 30 0RF Referrals: No Primary/Family,Physician [Primary Care Provider] - In 1 week Patient/Caregiver Discharge Instructions Print Language: French
[2024-08-01 20:15] VITALS: PULSE 105
[2024-08-01 20:16] VITALS: PULSE 107; RESP 24; O2SAT 99
--- NOTE | 2024-08-01 20:45 | PD.EDWEAK ---
ED Weakness RME/HPI General Chief complaint: Weakness Stated complaint: WEAKNESS Time Seen by Provider: 08/01/24 18:47 Source: patient and EMS Arrival date/time: 08/01/24 18:05 This is a 79-year-old male that comes from [facility] care with complaints of weakness, vomiting, and difficulty breathing. 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 Mode of arrival: EMS RME / HPI RME / HPI Narrative: Mr. Aguilar is coming from [facility] facility with a reported of vomiting x 1 and generalized weakness. No one witnessed him vomiting blood. Per EMS when they picked him up his heart rate was 107, temperature of 100, blood pressure 147/68. He did not seem to be in any acute distress. I have greeted and performed a focused initial assessment of this patient. A comprehensive ED assessment and evaluation of the patient, analysis of all test results, and completion of the medical decision making process will be conducted by additional ED providers. Related Data Home Medications ?Medication ?Instructions ?Recorded ?Confirmed amlodipine 10 mg tablet 10 mg feeding tube QDAY 06/17/24 08/04/24 apixaban 5 mg tablet (Eliquis) 5 mg feeding tube BID 06/17/24 08/04/24 aspirin 325 mg tablet 325 mg feeding tube QDAY 06/17/24 08/04/24 atorvastatin 80 mg tablet (Lipitor) 40 mg feeding tube QDAY 06/17/24 08/04/24 docusate sodium 100 mg tablet 100 mg PO QDAY 06/17/24 08/04/24 famotidine 20 mg tablet 20 mg feeding tube QDAY 06/17/24 08/04/24 fenofibrate nanocrystallized 145 145 mg PO QDAY 06/17/24 08/04/24 mg tablet fluconazole 200 mg tablet 200 mg feeding tube QDAY 06/17/24 08/04/24 melatonin 3 mg tablet 3 mg PO HS PRN Insomnia 06/17/24 08/04/24 Held on 08/05/24. Instructions: Resume on 08/11/24. oxcarbazepine 300 mg tablet 300 mg feeding tube BID 06/17/24 08/04/24 tamsulosin 0.4 mg capsule 0.4 mg PO QDAY 08/04/24 08/04/24 Previous Rx's ?Medication ?Instructions ?Recorded acetaminophen 325 mg/10.15 mL oral 650 mg (20.3 mL) G-tube Q6HR PRN 06/20/24 solution Pain 1-10 Or Fever > 100.4 #1,015 mL amoxicillin 875 mg-potassium 1 tab PO BID #14 tabs 08/01/24 clavulanate 125 mg tablet Allergies Allergy/AdvReac Type Severity Reaction Status Date / Time No Known Allergies Allergy Verified 08/05/24 03:33 Review of Systems Review of Systems Systems Reviewed: All systems reviewed, normal except as documented Past Medical History Past Medical History Comments PMH COMMENT: Past Medical History: CVA 03/2024 with right-sided hemiplegia and aphasia deficits, dyphagia s/p PEG tube placement, history of PE, GERD, coccidioidomycosis, hypertension Family History: Not obtainable Surgical History: PEG tube placement Social History: Not obtainable Current Medications: Eliquis 5 mg BID, aspirin 325 mg qday, atorvastatin 80 mg qday, atorvastatin 80 mg qday, fenofibrate 145 mg qday, oxcarbazepine 300 mg BID, fluconazole 200 mg qday, amlodipine 10 mg qday, famotidine 20 mg qday, melatonin 3 mg HS prn, acetaminophen 650 mg prn, tramadol 50 mg prn, docusate 100 mg prn (Source: [facility] medication reconciliation) Allergies: No known drug allergies ED Exam General General appearance: Present alert and in no apparent distress Head Head exam: Present atraumatic Eye Eye exam: Present normal appearance, PERRL and EOMI ENT ENT exam: Present normal exam, normal oropharynx and mucous membranes moist Neck Neck exam: Present normal inspection, full ROM and trachea midline Chest Chest inspection: Present normal inspection and symmetric chest wall rise Respiratory Respiratory exam: Present other (rhonchi throughout ) Cardiovascular Cardiovascular exam: Present regular rate, normal rhythm and normal heart sounds Abdominal Exam Abdominal exam: Present soft (g tube present ) Extremities Exam Extremities exam: Present full ROM and other (right sided hemiparesis ) Back Exam Back exam: Present normal inspection and full ROM Neurological Exam Neurological exam: Present alert, oriented X3 and CN II-XII intact Psychiatric Psychiatric exam: Present normal affect Skin Skin exam: Present warm, dry and intact Course Quality Measures none Orders Category Date Time Status Bedside COVID-19 Antigen Test NOW Care 08/01/24 20:45 Completed Bedside Influenza A&B Antigen Test NOW Care 08/01/24 20:45 Completed Divorce Lawyer STAT Care 08/01/24 20:06 Completed Continuous Pulse Oximetry STAT Care 08/01/24 20:06 Completed EKG (ED ONLY) *Do not use* NOW Care 08/01/24 20:06 Completed IV [Insert IV] STAT Care 08/01/24 21:14 Completed In and Out Catheter X1PRN Care 08/01/24 20:06 Completed Insert IV NOW Care 08/01/24 20:06 Completed NPO STAT Care 08/01/24 20:06 Completed Strict Intake and Output Routine Care 08/01/24 20:[address] chest wo con Stat Exams 08/02/24 05:[address] head/brain wo con Stat Exams 08/02/24 05:53 Completed EKG (ED Only) Stat Exams 08/01/24 20:06 Ordered XR chest 1V SEPSIS PROTOCOL Stat Exams 08/01/24 20:06 Completed B-Type Natriuretic Peptide Stat Lab 08/01/24 20:35 Completed Blood Culture (Lab) Stat Lab 08/01/24 20:35 Results CBC Stat Lab 08/01/24 17:05 Completed CBC Stat Lab 08/01/24 20:35 Completed CMP [Comprehensive Metabolic Panel] Stat Lab 08/01/24 17:05 Completed LDH (Lactate Dehydrogenase) Stat Lab 08/01/24 20:35 Completed Lactate (Lactic Acid) Stat Lab 08/01/24 20:35 Completed Lactate (Lactic Acid) Stat Lab 08/01/24 21:43 Completed Lactic Acid, 3 HR Stat Lab 08/02/24 03:44 Completed Lipase Stat Lab 08/01/24 20:35 Completed Magnesium Stat Lab 08/01/24 20:35 Completed Partial Thromboplastin Time Stat Lab 08/01/24 20:35 Completed Phosphorous Stat Lab 08/01/24 20:35 Completed Procalcitonin Stat Lab 08/01/24 20:35 Completed Prothrombin Time with INR Stat Lab 08/01/24 20:35 Completed Troponin I Stat Lab 08/01/24 17:05 Completed Troponin I Stat Lab 08/01/24 20:35 Completed Urinalysis Stat Lab 08/01/24 20:25 Completed Urine Culture Stat Lab 08/01/24 20:25 Completed Ondansetron Inj [Zofran Inj] Med 08/01/24 20:06 Discontinued 4 mg IV Q6HR PRN Sodium Chloride 0.9% 1000 ml [Ns] 1,000 ml Med 08/01/24 21:14 Discontinued IV 999 mls/hr Sodium Chloride 0.9% 1000 ml [Ns] 1,000 ml Med 08/01/24 22:51 Discontinued IV 999 mls/hr Sodium Chloride 0.9% 500 ml [Ns] 500 ml Med 08/01/24 21:42 Discontinued IV 999 mls/hr Oxygen Delivery NOW RT 08/01/24 20:06 Completed Vital Signs Vital signs: Vital Signs Temperature 99.2 F 08/01/24 18:53 Pulse Rate 107 H 08/01/24 18:53 Respiratory Rate 18 08/01/24 18:53 Blood Pressure 128/73 08/01/24 18:53 Pulse Oximetry (%) 95 08/01/24 18:53 Oxygen Delivery Method Room Air 08/01/24 18:53 Procedures -ED EKG Interpretation #1: Date of EK08/01/24 Time of EK:10 Rate: 102 Interpretation: Interpreted by me (Sinus rhythm with Q waves in lead II and aVF.) EKG Impression: No ectopy, Normal QRS and Normal intervals Weakness MDM Narrative MDM Narrative:: Chest x ray shows: Findings: Minor atelectasis left base Reduced inspiratory effort No lobar pneumonia Mild vascular congestion. Impression: Poor inspiratory effort chest x-ray Patient arrives to the emergency room with a temp of 100.5, tachypneic at 24, 107 heart rate 142/72 blood pressure. Sepsis alert called. Patient's white count is 10.1 hemoglobin and hematocrit are 13.9 and 39.4 platelet count is 279, neutrophil 81% coags unremarkable BMP shows a BUN of 32 and creatinine of 1.0 lactic acid 2.2 liver function unremarkable troponin 0.020 BNP is 234 lipase 31 procalcitonin 0.16 urine unremarkable. Initial lactic acid was 2.2. Patient given IV fluid bolus. Spoke to hospitalist team for possible admission. Although patient does not have pneumonia on x-ray his lungs do sound rhonchorous. I spoke to hospitalist team and they would like to see if patient's lactic acid gets better after fluids. Dr. art assumed patient care. And will follow-up with lactic acid. If stable will discharge. Patient data External records reviewed:: [facility] previous records Clinical information provided by:: patient Social determinants that could affect healthcare access:: none Patient has the following chronic illnesses:: see hpi How is presenting disease/condition affected by chronic disease/condition?: uneffected by Evaluation data The following diagnostics were reviewed and interpreted by me:: lab results, radiology exam(s) and EKG tracing(s) Lab and/or radiology exams considered but not ordered:: None Interpretation Summary: See note Medications / Prescriptions Medications or Prescriptions considered but not ordered:: None Medication administrations:: Medication Administration History Discontinued Medications Sodium Chloride (Ns) 1,000 mls @ 999 mls/hr IV .Q1H1M ONE Stop: 08/01/24 22:14 Last Infusion: 08/01/24 22:40 Dose: Infused Documented By: Admin: 08/01/24 21:21 Dose: 999 mls/hr Documented By: GREER Sodium Chloride (Ns) 500 mls @ 999 mls/hr IV .Q31M ONE Stop: 08/01/24 22:12 Last Infusion: 08/01/24 23:51 Dose: Infused Documented By: Admin: 08/01/24 22:39 Dose: 999 mls/hr Documented By: GREER Sodium Chloride (Ns) 1,000 mls @ 999 mls/hr IV .Q1H1M ONE Stop: 08/01/24 23:51 Last Infusion: 08/01/24 23:51 Dose: Infused Documented By: Admin: 08/01/24 22:55 Dose: 999 mls/hr Documented By: GREER Ondansetron HCl (Ondansetron Inj 2 Mg/Ml Inj 2 Ml) 4 mg IV Q6HR PRN PRN Reason: NAUSEA OR VOMITING Stop: 08/31/24 20:05 See [facility] Consultations Consultation(s) initiated? (list below): No Diagnosis Weakness Differential Diagnosis: sepsis, dehydration and other (Pneumonia UTI) Most likely diagnosis given after review of the tests above:: pnuemonia Admission Indicated Admission indicated?: indicated Admission Request Was there a request for admission?: Yes Admission Attestation Admission request attestation: Discussed case with Hospitalist service regarding admission. Discussed patients ED course, exam findings, labs, and radiology results. The Hospitalist decline to accept the patient for admission. Would like a repeat lactic acid first and if improves okay to discharge. Disposition Plan Disposition Plan: other (specify) (still pending ) Discharge Plan Plan Patient Disposition: Xfer Skilled Nsg Fac (SNF) Patient condition on transfer: Stable Prescriptions/Referrals Prescriptions/Med Rec: New amoxicillin-pot clavulanate 875-125 mg tablet 1 tab PO BID Qty: 14 0RF No Action atorvastatin [Lipitor] 80 mg Tablet 40 mg feeding tube QDAY aspirin 325 mg Tablet 325 mg feeding tube QDAY fluconazole 200 mg tablet 200 mg feeding tube QDAY oxcarbazepine 300 mg tablet 300 mg feeding tube BID melatonin 3 mg Tablet 3 mg PO HS PRN (Reason: Insomnia) famotidine 20 mg tablet 20 mg feeding tube QDAY amlodipine 10 mg tablet 10 mg feeding tube QDAY Rx Instructions: hold if sbp <110 HR <60 docusate sodium 100 mg Tablet 100 mg PO QDAY Rx Instructions: give through feeding tube fenofibrate nanocrystallized 145 mg tablet 145 mg PO QDAY Rx Instructions: give via feeding tube Eliquis 5 mg tablet 5 mg feeding tube BID acetaminophen 325 mg/10.15 mL Solution 650 mg G-tube Q6HR PRN (Reason: Pain 1-10 Or Fever > 100.4) Qty: 1015 0RF tamsulosin 0.4 mg capsule 0.4 mg PO QDAY Referrals: No Primary/Family,Physician [Primary Care Provider] - In 1 week Problem List Clinical Impression: Pulmonary nodule, Thyroid nodule Patient/Caregiver Discharge Instructions Discharge Activity: activity as tolerated Education Materials: Common Thyroid Problems, ED Pulmonary Nodule, Solitary Print Language: Azerbaijani Stand Alone Forms: Bina Award Info., Patient Portal Info Letter PA/CARDIAC RN Supervising Physician PA/CARDIAC RN Supervising Physician: rubens
[2024-08-01 20:47] LABS: Collection Type, Urine Clean Catch
[2024-08-01 20:53] LABS: Lactate (Lactic Acid) 2.2 mMol/L (0.4-2.0)
[2024-08-01 20:56] LABS: Basophils % (Auto) 0 % (0-2.5); Eosinophils % (Auto) 0 % (0-10); Hematocrit 39.4 % (41.0-53.0); Hemoglobin 13.9 g/dL (13.5-16.0); Immature Granulocytes % (Auto) 0 % (0-0); Immature Granulocytes Auto 0.03 Thou/mm3 (0.00-0.00); Lymphocytes # (Auto) 1.1 Thou/mm3 (1.0-4.8); Lymphocytes % (Auto) 11 % (10-50); Mean Corpuscular HGB Conc 35.3 g/dl (31.0-37.0); Mean Corpuscular Hemoglobin 31.2 pg (25.0-35.0); Mean Corpuscular Volume 89 fL (80-100); Monocytes # (Auto) 0.8 Thou/mm3 (0.0-0.8); Monocytes % (Auto) 8 % (0-12); Neutrophils # (Auto) 8.2 Thou/mm3 (1.8-7.7); Neutrophils % (Auto) 81 % (37-80); Nucleated Red Blood Cell % 0 /100 WBC (0); Platelet Count 279 Thou/mm3 (140-440); RDW Standard Deviation 46.8 fL (35.1-43.9); Red Blood Count 4.45 Miln/mm3 (4.50-5.90); White Blood Count 10.1 Thou/mm3 (3.8-10.6)
[2024-08-01 21:01] LABS: Bilirubin,Urine Negative (Negative); Blood,Urine Negative (Negative); Clarity,Urine Clear (Clear/Hazy); Color,Urine Yellow (Lt Yel-Yel); Glucose, Urine Negative (Negative); Ketones,Urine Negative (Negative); Leukocyte Esterase,Urine Negative (Negative); Nitrite,Urine Negative (Negative); Protein,Urine 1+ (Neg - Trace); RBC,Urine 1 /hpf (0-3); Specific Gravity,Urine 1.034 (1.001-1.035); Squamous Epithelial Cell,Urine < 1 /hpf (0-5); WBC,Urine 3 /hpf (0-5)
[2024-08-01 21:09] LABS: INR 1.1 (0.9-1.3); Partial Thromboplastin Time 32.7 Seconds (22.0-36.0); Prothrombin Time 12.1 Seconds (9.0-12.2)
[2024-08-01] MEDS: SODIUM CHLORIDE 0.9% 1000 ML 1,000 ML 999 ML IV ×2 (21:21→22:55)
[2024-08-01 21:23] LABS: B-Type Natriuretic Peptide 34 pg/mL (0-100)
[2024-08-01 21:24] LABS: LDH (Lactate Dehydrogenase) 183 U/L (120-246); Lipase 31 U/L (12-53); Magnesium 2.1 mg/dL (1.6-2.6); Phosphorous 3.8 mg/dL (2.4-5.1); Procalcitonin 0.16 ng/ml (0.0-0.49); Troponin I < 0.020 ng/mL (0.0-0.045)
[2024-08-01 22:33] VITALS: BP 127/89; PULSE 89; RESP 18; O2SAT 97
[2024-08-01] MEDS: SODIUM CHLORIDE 0.9% 500 ML 500 ML 999 ML IV (22:39)
--- NOTE | 2024-08-01 23:10 | PD.EDADDENDU ---
Emergency Room Addendum Addendum Narrative: 2300: Care assumed from Jaqueline Jonas NP. Past medical, surgical, social and family history reviewed. Vitals and home medications reviewed. Results and treatment plan discussed. I will assume the care of the patient at this time and will follow the patient, pending repeat lactic acid and re-evaluation. Please refer to the emergency department record for history and examination from initial visit. Repeat lactic acid is improved at 1.5. CT head and CT chest ordered and are pending. 0600: Care signed out to Dr. Vu (emergency physician). Past medical, surgical, social and family history reviewed. Vitals and home medications reviewed. Results and treatment plan discussed. They will assume the care of the patient at this time and will follow the patient, pending CT head and CT chest.
[2024-08-01 23:51] LABS: Reflex Lactate? Y
[2024-08-02] VITALS (8 sets, daily range): BP systolic 113–145; BP diastolic 64–81; PULSE 79–96; RESP 16–24; TEMP 36.8–37.7; O2SAT 93–98
[2024-08-02 00:32] LABS: Lactate (Lactic Acid) 2.1 mMol/L (0.4-2.0)
[2024-08-02 03:30] LABS: Reflex Lactate? Y
[2024-08-02 03:58] LABS: Lactic Acid, 3 HR 1.5 mMol/L (0.4-2.0)
--- NOTE | 2024-08-02 05:53 | XR_ITS ---
Examination: CT brain head without contrast. 2-D sagittal coronal reconstructions Date and time of exam:August 02, 2024, 0619 hrs. Indications: Onset altered mental status today CTDI: vol (mGy):57 DLP: (mGycm):1260 Technique: Multiple CT axial sections of the brain have been obtained, 5 mm slice thickness. Contrast has not been administered. 2-D sagittal, coronal reconstructions have been obtained Low dose protocols were performed. One or more of the following dose reduction techniques were used; automated exposure control, adjustment of the mA and/or KV according to patient size, use of iterative reconstruction technique. Findings: No significant ventricular enlargement. Old infarcts left basal ganglia left brainstem pontine level Intra-axial or extra-axial hemorrhage density is not seen. No mass effect or midline shift Basal cisterns are not remarkable. Fourth ventricle is midline. Cranial vault intact. Impression: Negative for acute hemorrhage, mass effect or midline shift Consider brain MRI follow-up as clinically warranted
--- NOTE | 2024-08-02 05:54 | XR_ITS ---
Examination: CT chest, without intravenous contrast. Sagittal and coronal 2-D reconstructions. Exam date and time: August 02, 2024 0613 hrs. Indications: Shortness of breath weakness chest pain today CTDI:vol (mGy) 17 DLP: (mGycm) 593 Technique: Multiple 3.0 mm axial sections of the chest to been obtained. Bone and lung density settings are obtained. Sagittal and coronal 2-D reconstructions have been obtained. Low dose protocols were performed. One or more of the following dose reduction techniques were used; automated exposure control, adjustment of the mA and/or KV according to patient size, use of iterative reconstruction technique. Findings: 12 mm right thyroid nodule No thoracic aortic aneurysm dilatation Pulmonary artery segment 39 mm Moderate calcification left anterior descending coronary artery Trace pericardial thickening Mild vascular congestion. Soft 12 mm nodular density right lower lobe No visualized liver or splenic lesion No gallstones No pancreatic or adrenal mass 4 cm left renal cysts Impression: 12 right thyroid nodule Pulmonary artery hypertension pattern 12 mm soft nodular density right lower lobe, consider early pneumonia, right lower lobe pulmonary nodule, clinical correlation and follow-up recommended
--- NOTE | 2024-08-02 06:54 | EDNOTE_ITS ---
Emergency Room Addendum Addendum Narrative: 0600: Care assumed from Dr. Fung, the previous shift emergency physician. Past medical, surgical, social and family history reviewed. Vitals and home medications reviewed. I will assume the care of the patient at this time, pending CT head, CT chest, and final disposition. Please refer to the emergency department record for history and examination from initial visit.? Physical exam by me shows patient under no acute distress at this time. 1055: Patient remains clinically stable throughout the emergency department visit. Re-assessment at the time of disposition demonstrates that the patient is in no acute distress. We reviewed all the results, analysis, and treatment plans. Patient is amenable to discharge. Strict return precautions were outlined. Patient was discharged in stable condition. RADIOLOGY Procedure(s): CT chest wo [facility] Accession Number(s): [id number] cc: Brendan Campuzano MD; NO PRIMARY/FAMILY,PHYSICIAN; Marquita Fung MD~ Examination: CT chest, without intravenous contrast. Sagittal and coronal 2-D reconstructions. Exam date and time: August 02, 2024 0613 hrs. Indications: Shortness of breath weakness chest pain today CTDI:vol (mGy) 17 DLP: (mGycm) 593 Technique: Multiple 3.0 mm axial sections of the chest to been obtained. Bone and lung density settings are obtained. Sagittal and coronal 2-D reconstructions have been obtained. Low dose protocols were performed. One or more of the following dose reduction techniques were used; automated exposure control, adjustment of the mA and/or KV according to patient size, use of iterative reconstruction technique. Findings: 12 mm right thyroid nodule No thoracic aortic aneurysm dilatation Pulmonary artery segment 39 mm Moderate calcification left anterior descending coronary artery Trace pericardial thickening Mild vascular congestion. Soft 12 mm nodular density right lower lobe No visualized liver or splenic lesion No gallstones No pancreatic or adrenal mass 4 cm left renal cysts Impression: 12 right thyroid nodule Pulmonary artery hypertension pattern 12 mm soft nodular density right lower lobe, consider early pneumonia, right lower lobe pulmonary nodule, clinical correlation and follow-up recommended Dictated By: Brendan Campuzano MD --- Procedure(s): CT head/brain wo con Accession Number(s): [id number] cc: Brendan Campuzano MD; NO PRIMARY/FAMILY,PHYSICIAN; Marquita Fung MD~ Examination: CT brain head without contrast. 2-D sagittal coronal reconstructions Date and time of exam:August 02, 2024, 0619 hrs. Indications: Onset altered mental status today CTDI: vol (mGy):57 DLP: (mGycm):1260 Technique: Multiple CT axial sections of the brain have been obtained, 5 mm slice thickness. Contrast has not been administered. 2-D sagittal, coronal reconstructions have been obtained Low dose protocols were performed. One or more of the following dose reduction techniques were used; automated exposure control, adjustment of the mA and/or KV according to patient size, use of iterative reconstruction technique. Findings: No significant ventricular enlargement. Old infarcts left basal ganglia left brainstem pontine level Intra-axial or extra-axial hemorrhage density is not seen. No mass effect or midline shift Basal cisterns are not remarkable. Fourth ventricle is midline. Cranial vault intact. Impression: Negative for acute hemorrhage, mass effect or midline shift Consider brain MRI follow-up as clinically warranted Dictated By: Brendan Campuzano MD
--- NOTE | 2024-08-02 11:25 | PC.CC ---
ASWAnatoly was consulted regarding transpotation for the patient back [facility]. ASW arranged transportation with [facility] reservation [phone].
--- NOTE | 2024-08-02 11:39 | PC.NURSE ---
Rpt given to Tor at [facility]..... [facility] daughter called to see if he was still here and I informed her that he is awaiting transportation back to the facility
== END 2024-08-02 13:05 | disposition skilled nursing facility (03) ==
PROVIDERS: Nurse Practitioner Family; Emergency Provider Emergency Medicine
DX: E04.1 Nontoxic single thyroid nodule (principal); R91.1 Solitary pulmonary nodule; R41.82 Altered mental status, unspecified
CPT/HCPCS: 36415; 70450; 71045; 71250; 80053; 81001; 83605; 83615; 83690; 83735; 83880; 84100; 84145; 84484; 85025; 85610; 85730; 87040; 87086; 87400; 87811; 93005; 96360; 96361; 99284; J7030; J7040

== ENCOUNTER 2024-08-04 09:36 | Observation (INO) | payer OTHER, MEDICAID, MEDICARE, SELFPAY ==
[2024-08-04] VITALS (10 sets, daily range): BP systolic 99–130; BP diastolic 58–80; PULSE 80–99; RESP 16–98; TEMP 36.6–37.4; O2SAT 90–98
--- NOTE | 2024-08-04 | XR_ITS ---
Examinations: MRI Brain without intravenous contrast. MRA brain without intravenous contrast. MRA carotids without intravenous contrast 3-D vascular reconstructions Date and time of exam: August 04, 2024, 1632 hrs. Indications: Stroke alert, onset facial droop onset focal neurologic deficit today Technique: Multiple axial and sagittal images of the brain have been obtained MRA brain carotid images without contrast obtained, including 3-D postprocessing, vascular maximum intensity projection images Findings: Sell[place] is not enlarged. The optic chiasm and infundibular stalk are not remarkable. Prepontine and interpeduncular cisterns are not enlarged. No localized enlargement of the medulla or tad. Fourth ventricle and cerebellar tonsils normal in position. Subacute hemorrhage is not seen. Fourth ventricle is midline. Mass in the cerebellopontine angle region is not evident. 7th and 8th nerve complexes exhibits symmetry. Globes are symmetrical with no retro-orbital mass. Increased white matter signal prominent Diffusion-weighted images demonstrate no focus of restricted diffusion Mass-effect upon the ventricular system is not identified. 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
--- NOTE | 2024-08-04 09:43 | EDNOTE_ITS ---
Neuro Symptoms Deficit-RME/HPI General Chief Complaint: Neuro Symptoms/Deficit Stated Complaint: FACIAL DROOP Time Seen by Provider: 08/04/24 09:44 Source: EMS Arrival date/time: 08/04/24 09:36 Mode of arrival: EMS Limitations: altered mental status RME / HPI RME / HPI Narrative: Dr. Stewart? 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 He was brought to the ED by ambulance from [facility] due to concerns for new-onset neurological symptoms. According to facility staff, the patient was last known to be well between 7:00 and 7:30 AM while eating breakfast. During subsequent rounds, staff noted a new- onset right-sided facial droop just prior to EMS arrival, prompting immediate transport to the ED. His blood glucose level on EMS arrival was 212 mg/dL. The patient was recently evaluated here for pneumonia and has a known history of prior stroke with residual speech and motor deficits. Related Data Home Medications ?Medication ?Instructions ?Recorded ?Confirmed amlodipine 10 mg tablet 10 mg feeding tube QDAY 05/2408/04/24 apixaban 5 mg tablet (Eliquis) 5 mg feeding tube BID 0 06/17/24 08/04/24 aspirin 325 mg tablet 325 mg feeding tube QDAY 08/04/24 atorvastatin 80 mg tablet (Lipitor) 40 mg feeding tube QDAY 06/17/24 08/04/24 docusate sodium 100 mg tablet 100 mg PO QDAY 06/17/24 08/04/24 famotidine 20 mg tablet 20 mg feeding tube QDAY 05/2408/04/24 fenofibrate nanocrystallized 145 145 mg PO QDAY 08/04/24 mg tablet fluconazole 200 mg tablet 200 mg feeding tube QDAY 08/04/24 melatonin 3 mg tablet 3 mg PO HS PRN Insomnia 05/2408/04/24 Held on 08/05/24. Instructions: Resume on 08/11/24. oxcarbazepine 300 mg tablet 300 mg feeding tube BID 08/04/24 tamsulosin 0.4 mg capsule 0.4 mg PO QDAY 08/04/2407/21 Previous Rx's ?Medication ?Instructions ?Recorded acetaminophen 325 mg/10.15 mL oral 650 mg (20.3 mL) G- tube Q6HR PRN 06/20/24 solution Pain 1-10 Or Fever > 100.4 # 1,015 mL amoxicillin 875 mg-potassium 1 tab PO BID #14 tabs 05/16 clavulanate 125 mg tablet Allergies Allergy/AdvReac Type Severity Reaction Status Date / Time No Known Allergies Allergy Verified 08/05/24 03:33 Review of Systems Review of Systems ROS Unobtainable: unobtainable due to mental status Past Medical History Past Medical History NEUROLOGIC: Positive Neurological Disorders and Cerebrovascular Accident CARDIAC: Positive Cardiac Disorders and Hypercholesterolemia; Negative Congestive Heart Failure RESPIRATORY: Negative Chronic Obstructive Pulmonary Disease (COPD) GASTROINTESTINAL: Negative Gastrointestinal Disorders GENITOURINARY: Negative Genitourinary Disorders or Renal Disease MUSCULOSKELETAL: Negative Musculoskeletal Disorders ENDOCRINE: Positive Endocrine Disorders and Diabetes Mellitus Type 2; Negative Diabetes Mellitus Type 1 HEMATOLOGIC: Negative Blood Disorders OTHER HISTORY: Negative Cancer Surgical History SURGICAL: Positive Abdominal Surgery (peg tube placement) Social History SMOKING STATUS: Never smoker SECOND HAND EXPOSURE: No ED Exam Narrative Physical exam: General: Appears acutely ill and nonverbal, but awake and tracking with eyes. No acute distress. HEENT: Normocephalic, atraumatic. Pupils equal, round, and reactive bilaterally. Oropharynx clear. Neurologic: New right-sided facial droop. Right hemiparesis with flaccid right arm. Nonverbal but tracks with eyes; does not follow commands. Babinski upgoing bilaterally. No seizure activity observed. Cardiovascular: Tachycardic at 115 BPM. Regular rhythm. No murmurs, rubs, or gallops. Peripheral pulses 2+ bilaterally. Pulmonary: No respiratory distress. Breath sounds clear bilaterally. Abdomen: Soft, non-tender, non-distended. Bowel sounds present. Extremities: Bilateral pitting edema. No cyanosis or clubbing. Skin: Warm, dry, no rashes or bruising. Psychiatric: Nonverbal, unable to assess cognition due to neurological deficits. General Limitations: Present altered mental status Course Quality Measures Suspected type of Stroke: Unknown at this time Last known well (date): 08/04/24 Last known well (time): 07:30 Tenecteplase given: Reason(s) TPA not given: Stroke severity too mild (non-disabling) (Neuro consult felt patient had metabolic encephalopathy) not given stroke Orders Category Date Time Status Bedside Blood Glucose NOW Care 08/04/24 09:44 Completed COVID-19 Screening Questionnaire NOW Care 08/04/24 14:18 Completed Print Inspector NOW Care 08/04/24 09:44 Completed Continuous Pulse Oximetry NOW Care 08/04/24 09:44 Completed Decision to Admit X1 Care 08/04/24 14:18 Completed EKG (ED ONLY) *Do not use* NOW Care 08/04/24 09:44 Completed In and Out Catheter NEEDED Care 08/04/24 09:44 Completed Insert IV NOW Care 08/04/24 09:44 Completed NIH Stroke Scale now Care 08/04/24 09:44 Completed NPO NOW Care 08/04/24 09:44 Completed Neuro Check Q4H Care 08/04/24 09:44 Completed Consult to Neurology / Tele-Neurology Routine Cons 08/04/24 09:[address] angio stroke protocol Stat Exams 08/04/24 09:[address] stroke protocol Stat Exams 08/04/24 09:44 Completed CXR [XR chest 1V] Stat Exams 08/04/24 14:13 Completed EKG (ED Only) Stat Exams 08/04/24 09:44 Draft B-Type Natriuretic Peptide Stat Lab 08/04/24 09:40 Completed CBC Stat Lab 08/04/24 09:40 Completed Comprehensive Metabolic Panel Stat Lab 08/04/24 09:40 Completed Drug Screen,Urine Stat Lab 08/04/24 11:00 Completed Magnesium Stat Lab 08/04/24 09:40 Completed Partial Thromboplastin Time Stat Lab 08/04/24 09:40 Completed Prothrombin Time with INR Stat Lab 08/04/24 09:40 Completed Troponin I Stat Lab 08/04/24 09:40 Completed Urinalysis Stat Lab 08/04/24 11:00 Completed Urine Culture Stat Lab 08/04/24 10:59 Completed Sodium Chloride 0.9% 1000 ml [Ns] 1,000 ml Med 08/04/24 09:45 Discontinued IV Q10H Oxygen Delivery NOW RT 08/04/24 09:44 Completed Vital Signs Vital signs: Vital Signs Temperature 98.7 F 08/04/24 10:00 Pulse Rate 90 08/04/24 10:00 Respiratory Rate 18 08/04/24 10:00 Blood Pressure 120/79 08/04/24 10:00 Pulse Oximetry (%) 95 08/04/24 10:00 Oxygen Delivery Method Room Air 08/04/24 10:00 Procedures -ED EKG Interpretation #1: Date of EK08/04/24 Time of EK:18 Rate: 93 Interpretation: Interpreted by me Additional EKG comment: EKG on 08/04/2024 at 10:18, personally interpreted by me shows normal sinus rhythm at 93 BPM with findings suggestive of a possible old lateral and posterior infarct of indeterminate age. No acute ST elevations noted. 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 Given his history of CVA, current anticoagulation with Eliquis, and new-onset focal neurological deficits, emergent stroke workup was initiated. Scribe Attestation: I, Trish Son, am scribing for and in the presence of Dr. Stewart. Provider Notation: Although this document has been carefully reviewed, there may still be some phonetic and other typographical errors. These errors are purely grammatical due to imperfections in the software program and should not be construed in any way to compromise the substance of the patient's medical care during this visit. Patient data External records reviewed:: [facility] previous records, EMS form and [facility] cords Clinical information provided by:: EMS Social determinants that could affect healthcare access:: none Patient has the following chronic illnesses:: see PMH How is presenting disease/condition affected by chronic disease/condition?: uneffected by Evaluation data The following diagnostics were reviewed and interpreted by me:: lab results and radiology exam(s) Lab and/or radiology exams considered but not ordered:: na Interpretation Summary: I personally reviewed the radiology data and agree with the radiologist's interpretation. Examination: CT brain head without contrast. Date and time of exam:08/04/2024, 9:46 AM Findings: No significant ventricular enlargement. Intra-axial or extra-axial hemorrhage density is not seen. No mass effect or midline shift Basal cisterns are not remarkable. Fourth ventricle is midline. Cranial vault intact. Stable chronic changes basal ganglia left brainstem Impression: Negative for acute hemorrhage, mass effect or midline shift Dictated By: Huber Shields MD Examination: CTA carotids with intravenous contrast CTA brain, head with intravenous contrast. Exam date and time: August 04, 2024 1001 hrs. Indications: Stroke alert, onset focal neurologic deficit altered mental status today Findings: 15 mm right thyroid nodule Atelectasis in the right upper lobe No significant neck, carotid carotid bifurcation or internal carotid artery stenoses Dominant left vertebral artery with no critical stenoses No cerebral large vessel arterial occlusions, thrombus, dissection or cerebral aneurysm Impression: No significant neck arterial stenoses No cerebral large vessel arterial occlusions or thrombus Dictated By: Brendan Campuzano MD Medications / Prescriptions Medications or Prescriptions considered but not ordered:: na Medication administrations:: Medication Administration History Discontinued Medications Acetaminophen (Acetaminophen 325 Mg Tablet) 650 mg PO Q6H PRN PRN Reason: Fever >101.5 Stop: 09/03/24 14:53 Acetaminophen (Acetaminophen 325 Mg Tablet) 650 mg PO Q6H PRN PRN Reason: PAIN SCALE 1-3 (mild Stop: 09/03/24 14:53 Apixaban (Apixaban 2.5 Mg Tablet) 5 mg GT BID [facility] Stop: 08/25/24 20:59 Last Admin: 08/06/24 09:21 Dose: 5 mg Documented By: Admin: 08/05/24 20:50 Dose: 5 mg Documented By: Admin: 08/05/24 08:27 Dose: 5 mg Documented By: Admin: 08/04/24 23:00 Dose: 5 mg Documented By: CTF Aspirin (Aspirin Ec 81 Mg Tabec) 81 mg PO QDAY [facility] Stop: 09/04/24 08:59 Last Admin: 08/05/24 08:27 Dose: 81 mg Documented By: LT Aspirin (Aspirin 81 Mg Chew) 81 mg GT QDAY [facility] Stop: 09/04/24 08:59 Last Admin: 08/06/24 09:20 Dose: 81 mg Documented By: BF Atorvastatin Calcium (Atorvastatin Calcium 20 Mg Tablet) 80 mg PO HS [facility] Stop: 09/03/24 20:59 Last Admin: 08/05/24 20:50 Dose: 80 mg Documented By: Admin: 08/04/24 23:00 Dose: 80 mg Documented By: CTF Comments: via peg tube Dextrose (Dextrose 50%-Water Inj 50 Ml Syringe) 25 ml IV Q15MIN PRN PRN Reason: BG 50-70 responsive npo pt Stop: 09/03/24 15:59 Dextrose (Dextrose 50%-Water Inj 50 Ml Syringe) 50 ml IV Q15MIN PRN PRN Reason: BG <50 OR BG <70 & pt unresponsive Stop: 09/03/24 15:59 Fluconazole (Fluconazole 100 Mg Tablet) 200 mg PO QDAY RE Stop: 08/12/24 08:59 Last Admin: 08/05/24 08:27 Dose: 200 mg Documented By: LT Fluconazole (Fluconazole Susp 40 Mg/Ml Ml) 200 mg GT QDAY RE Stop: 08/13/24 08:59 Last Admin: 08/06/24 10:20 Dose: 200 mg Documented By: BF Glucagon (Glucagon Inj 1 Mg Vial) 1 mg IM Q15MIN PRN PRN Reason: BG <70, and no IV access Heparin Sodium (Porcine) (Heparin Sod Inj 5000 Unit/Ml Vial) 5,000 unit SC Q8HR RE Stop: 08/18/24 21:59 Sodium Chloride (Ns) 1,000 mls @ 100 mls/hr IV Q10H RE Stop: 09/03/24 09:44 Last Admin: 08/04/24 20:46 Dose: 100 mls/hr Documented By: Infusion: 08/04/24 20:46 Dose: Infused Documented By: Admin: 08/04/24 10:51 Dose: 100 mls/hr Documented By: VG Azithromycin 500 mg/ Sodium (Chloride) 250 mls @ 250 mls/hr IV QDAY RE Stop: 08/12/24 08:59 Last Admin: 08/06/24 10:16 Dose: 250 mls/hr Documented By: Infusion: 08/05/24 09:29 Dose: Infused Documented By: Admin: 08/05/24 08:29 Dose: 250 mls/hr Documented By: LT Ceftriaxone Sodium 1,000 mg/ (Sodium Chloride) 50 mls @ 100 mls/hr IV QDAY RE Stop: 08/11/24 15:51 Last Admin: 08/06/24 09:22 Dose: 100 mls/hr Documented By: Infusion: 08/05/24 08:58 Dose: Infused Documented By: Admin: 08/05/24 08:28 Dose: 100 mls/hr Documented By: Infusion: 08/04/24 17:47 Dose: Infused Documented By: Admin: 08/04/24 16:55 Dose: 100 mls/hr Documented By: VG Azithromycin 500 mg/ Sodium (Chloride) 250 mls @ 250 mls/hr IV X1 ONE Stop: 08/04/24 16:59 Last Infusion: 08/04/24 19:10 Dose: Infused Documented By: Admin: 08/04/24 17:52 Dose: 250 mls/hr Documented By: VG Insulin Human Lispro (Insulin Lispro (Admelog) 1 Unit/0.01 Ml Unit) 0 unit SC Q6HR RE; Protocol Stop: 09/03/24 17:59 Last Admin: 08/06/24 12:00 Dose: Not Given Documented By: BF Non-Admin Reason: Per Protocol Admin: 08/06/24 06:51 Dose: Not Given Documented By: AAA Non-Admin Reason: Per Protocol Admin: 08/06/24 00:00 Dose: Not Given Documented By: Non-Admin Reason: Glucose, LOW Admin: 08/05/24 19:09 Dose: Not Given Documented By: LT Non-Admin Reason: Per Protocol Admin: 08/05/24 12:17 Dose: Not Given Documented By: LT Non-Admin Reason: Per Protocol Admin: 08/05/24 05:49 Dose: Not Given Documented By: CTF Non-Admin Reason: Per Protocol Admin: 08/05/24 01:04 Dose: Not Given Documented By: CTF Non-Admin Reason: Per Protocol Admin: 08/04/24 19:04 Dose: Not Given Documented By: VG Non-Admin Reason: Per Protocol Lansoprazole (Lansoprazole 30 Mg Tab.Rap.Dr) 30 mg GT QDAY RE Stop: 09/04/24 08:59 Last Admin: 08/06/24 09:21 Dose: 30 mg Documented By: BF Ondansetron HCl (Ondansetron Inj 2 Mg/Ml Inj 2 Ml) 4 mg IV Q6H PRN; Protocol PRN Reason: NAUSEA OR VOMITING Stop: 09/03/24 14:53 Pantoprazole Sodium (Pantoprazole 40 Mg Tablet) 40 mg PO QDAY RE Stop: 09/04/24 08:59 Last Admin: 08/05/24 08:27 Dose: 40 mg Documented By: LT Potassium Chloride (Potassium Chloride 10% 20 Meq/15 Ml Udc) 40 meq GT X1 ONE Stop: 08/06/24 07:41 Last Admin: 08/06/24 09:20 Dose: 40 meq Documented By: BF Tamsulosin HCl (Tamsulosin Hcl 0.4 Mg Capsule) 0.4 mg GT QDAY RE Stop: 09/04/24 10:14 Last Admin: 08/06/24 09:20 Dose: 0.4 mg Documented By: Admin: 08/05/24 12:18 Dose: 0.4 mg Documented By: LT as above, if any Consultations Consultation(s) initiated? (list below): Yes Consultation #1 (Physician, Specialty, Details): Teleneuro Time: 12:20 Consultation #2 (Physician, Specialty, Details): Discussed test HPI, PMHx, lab, radiology results and/or management with hospitalist. Will admit for further evaluation and management. Accepts patient for admission. Time: 14:18 Diagnosis Neuro Differential Diagnosis: subarachnoid hemorrhage, cerebrovascular accident and transient cerebral ischemia Most likely diagnosis given after review of the tests above:: Right facial droop Right upper extremity weakness Encephalopathy Leucocytosis Admission Indicated Admission indicated?: indicated Admission Request Was there a request for admission?: Yes Admission Attestation Admission request attestation: Discussed case with [] from Hospitalist service regarding admission. Discussed patients ED course, exam findings, labs, and radiology results. The Hospitalist [agrees,declines] to accept the patient for admission. Disposition Plan Disposition Plan: Admit Critical Care Time Critical Care Time Critical Care Time: Yes Total Critical Care Time (min.): 60 Attestation: The high probability of sudden, clinically significant deterioration in the patient?s condition required the highest level of my preparedness to intervene urgently. ? The services I provided to this patient were to treat and/or prevent clinically significant deterioration. Services included the following: chart data review, reviewing nursing notes and/or old charts, documentation time, fashion consultant collaboration regarding findings and treatment options, medication orders and management, direct patient care, vital sign assessments and ordering, interpreting and reviewing diagnostic studies and lab tests. ? Aggregate critical care time includes only time during which I was engaged in work directly related to the patient?s care, as described above, whether at bedside or elsewhere in the Emergency Department. It did not include time spent performing other reported procedures or the services of residents, students, nurses or physician assistants. Discharge Plan Plan Patient Disposition: Admit Acute Care w/in Hospital Disposition Comment: [facility] Patient condition on transfer: Stable Problem List Clinical Impression: RUE weakness, Facial droop, Encephalopathy, Leucocytosis
--- NOTE | 2024-08-04 09:44 | XR_ITS ---
Examination: CT brain head without contrast. 2-D sagittal coronal reconstructions Date and time of exam:08/04/2024, 9:46 AM CTDI: vol (mGy):60 DLP: (mGycm):1329 Technique: Multiple CT axial sections of the brain have been obtained, 5 mm slice thickness. Contrast has not been administered. 2-D sagittal, coronal reconstructions have been obtained Low dose protocols were performed. One or more of the following dose reduction techniques were used; automated exposure control, adjustment of the mA and/or KV according to patient size, use of iterative reconstruction technique. Findings: No significant ventricular enlargement. Intra-axial or extra-axial hemorrhage density is not seen. No mass effect or midline shift Basal cisterns are not remarkable. Fourth ventricle is midline. Cranial vault intact. Stable chronic changes basal ganglia left brainstem Impression: Negative for acute hemorrhage, mass effect or midline shift
--- NOTE | 2024-08-04 09:44 | EKG_ITS ---
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
--- NOTE | 2024-08-04 09:44 | XR_ITS ---
Examination: CTA carotids with intravenous contrast CTA brain, head with intravenous contrast. 2-D sagittal, coronal reconstructions. 3-D reconstructions. Exam date and time: August 04, 2024 1001 hrs. Indications: Stroke alert, onset focal neurologic deficit altered mental status today CTDI: vol (mGy) 32.0 DLP: (mGycm) 465 Technique: Multiple CTA axial brain, head carotid images post intravenous contrast injection 70 cc, [id number]. 2-D sagittal, coronal reconstructions. 3-D reconstructions, 3-D post processing including vascular maximum intensity projection images. Low dose protocols were performed. One or more of the following dose reduction techniques were used; automated exposure control, adjustment of the mA and/or KV according to patient size, use of iterative reconstruction technique. Findings: 15 mm right thyroid nodule Atelectasis in the right upper lobe No significant neck, carotid carotid bifurcation or internal carotid artery stenoses Dominant left vertebral artery with no critical stenoses No cerebral large vessel arterial occlusions, thrombus, dissection or cerebral aneurysm Impression: No significant neck arterial stenoses No cerebral large vessel arterial occlusions or thrombus
[2024-08-04 10:02] LABS: Basophils # (Auto) 0.1 Thou/mm3 (0.0-0.2); Basophils % (Auto) 1 % (0-2.5); Eosinophils % (Auto) 0 % (0-10); Hemoglobin 12.4 g/dL (13.5-16.0); Immature Granulocytes % (Auto) 1 % (0-0); Immature Granulocytes Auto 0.09 Thou/mm3 (0.00-0.00); Lymphocytes # (Auto) 1.9 Thou/mm3 (1.0-4.8); Lymphocytes % (Auto) 14 % (10-50); Mean Corpuscular HGB Conc 34.4 g/dl (31.0-37.0); Mean Corpuscular Hemoglobin 30.6 pg (25.0-35.0); Mean Corpuscular Volume 89 fL (80-100); Monocytes # (Auto) 1.2 Thou/mm3 (0.0-0.8); Monocytes % (Auto) 9 % (0-12); Neutrophils # (Auto) 10.2 Thou/mm3 (1.8-7.7); Neutrophils % (Auto) 76 % (37-80); Nucleated Red Blood Cell % 0 /100 WBC (0); Platelet Count 234 Thou/mm3 (140-440); RDW Standard Deviation 46.7 fL (35.1-43.9); Red Blood Count 4.05 Miln/mm3 (4.50-5.90); White Blood Count 13.4 Thou/mm3 (3.8-10.6)
[2024-08-04 10:07] LABS: B-Type Natriuretic Peptide 64 pg/mL (0-100)
[2024-08-04 10:08] LABS: Alanine Aminotransferase 12 U/L (10-49); Albumin/Globulin Ratio 1.1 (1.2-2.2); Alkaline Phosphatase 54 U/L (46-116); Anion Gap 9 (7-16); Aspartate Amino Transferase < 8 U/L (0-34); BUN/Creatinine Ratio 31 Ratio (12-20); Bilirubin,Total 0.4 mg/dL (0.3-1.2); Blood Urea Nitrogen 25 mg/dL (9-23); Calcium 8.7 mg/dL (8.3-10.6); Calcium (Corrected) 9.5 mg/dL (8.5-10.1); Carbon Dioxide 22.1 mMol/L (20.0-31.0); Chloride 113 mMol/L (98-107); Creatinine (Component) 0.8 mg/dL (0.6-1.3); Globulin 2.8 gm/dL (2.3-3.5); Glucose 197 mg/dL (74-106); INR 1.2 (0.9-1.3); Magnesium 2.1 mg/dL (1.6-2.6); Osmolality,Calculated 296 (275-295); Partial Thromboplastin Time 30.2 Seconds (22.0-36.0); Potassium 3.6 mMol/L (3.4-5.1); Prothrombin Time 12.7 Seconds (9.0-12.2); Sodium 144 mMol/L (136-145); Total Protein 5.8 gm/dL (5.7-8.2); Troponin I < 0.020 ng/mL (0.0-0.045); eGFR > 60 See Note
[2024-08-04] MEDS: SODIUM CHLORIDE 0.9% 1000 ML 1,000 ML 100 ML IV ×2 (10:51→20:46)
[2024-08-04 11:09] LABS: Collection Type, Urine Catheter; Squamous Epithelial Cell,Urine 0 /hpf (0-5)
[2024-08-04 11:25] LABS: Amphetamine/Methamp Scrn,U Negative (Negative); Barbiturate Screen,Urine Negative (Negative); Benzodiazepines Screen,Urine Negative (Negative); Benzoylecgonine Screen, Ur Negative (Negative); Fentanyl Screen,Urine Negative (Negative); Opiate Screen,Urine Negative (Negative); THC Screen,Urine Negative (Negative)
[2024-08-04 11:45] LABS: Bilirubin,Urine Negative (Negative); Blood,Urine Negative (Negative); Clarity,Urine Clear (Clear/Hazy); Color,Urine Yellow (Lt Yel-Yel); Glucose, Urine Negative (Negative); Ketones,Urine Trace (Negative); Leukocyte Esterase,Urine Negative (Negative); Nitrite,Urine Negative (Negative); Protein,Urine 1+ (Neg - Trace); RBC,Urine 1 /hpf (0-3); WBC,Urine 1 /hpf (0-5)
--- NOTE | 2024-08-04 12:23 | ESCONSULT_ITS ---
Tele Neuro Consultation Consultation Date 08/04/24 Most Recent Vital Signs Last Vital Signs Temp 98.7 F 08/04/24 10:00 Pulse 98 08/04/24 10:00 Resp 18 08/04/24 10:00 BP 120/79 08/04/24 10:00 Pulse Ox 95 08/04/24 10:00 O2 Del Method Room Air 08/04/24 10:00 Laboratory-Coagulation Panel PT 12.7 Seconds (9.0-12.2) H 08/04/24 09:40 INR 1.2 (0.9-1.3) 08/04/24 09:40 APTT 30.2 Seconds (22.0-36.0) 08/04/24 09:40 Consultation Narrative [facility] Tele[facility]urology Consult Services Patient Name: Mikal Aguilar Date of : 1945 Identification Number: Date of Service: 08/04/2024 09:39:20 Diagnosis: ? R41.89 - Unresponsive ? G93.49 - Encephalopathy Multifactorial Impression: ? 79 years old male with history of HTN and prior stroke with residual slurred speech presents after NH staff found unresponsive. LKW at 7:00am. Neuro exam is limited due to AMS. Current NIHSS estimated at 24. Patient is obtunded, non verbal, but withdrawing to pain. NCCT showed no acute abnormalities. CTA head/neck also obtained showed no evidence of LVO or significant stenosis. Presentation more consisted with acute encephalopathy. Patient also received Tramadol today thus seizure also on a consideration. Recommend metabolic/infection work-up. Consider MRI brain w/o contrast. Our recommendations are outlined below. Recommendations: ? Stroke/Telemetry Floor ? Neuro Checks ? Bedside Swallow Eval ? DVT Prophylaxis ? IV Fluids, Normal Saline ? Head of Bed 30 Degrees ? Euglycemia and Avoid Hyperthermia (PRN Acetaminophen) Sign Out: ? Discussed with Emergency Department Provider Advanced Imaging: CTA Head and Neck Completed. LVO:No Patient in not a candidate for FRIDA Metrics: Last Known Well: 08/04/2024 07:00:00 Dispatch Time: 08/04/2024 09:39:19 Arrival Time: 08/04/2024 09:36:00 Initial Response Time: 08/04/2024 09:42:00 Symptoms: Unresponsive. Initial patient interaction: 08/04/2024 09:55:00 NIHSS Assessment Completed: 08/04/2024 10:03:43 Patient is not a candidate for Thrombolytic. Thrombolytic Medical Decision: 08/04/2024 10:03:54 Patient was not deemed candidate for Thrombolytic because of following reasons: other diagnosis suspected presentation more consistent with encephalopathy. CT head showed no acute hemorrhage or acute core infarct. Primary Provider Notified of Diagnostic Impression and Management Plan on: 08/04/2024 11:29:53 History of Present Illness: Patient is a 79 year old Male. Patient was brought by EMS for symptoms of Unresponsive. Patient is a 79 years old male with history of HTN and prior stroke with residual slurred speech who presents to the ED from [place] after staff found him unresponsive. LKW at 7:00. Patient noticed warm to touch and with right facial droop on arrival to the ED. No other history available at this time. Past Medical History: ? Hypertension ? Stroke Other PMH: slurred speech, COPD, anemia, GERD Medications: Anticoagulant use: Unknown Antiplatelet use: Unknown Reviewed EMR for current medications Other Medications Pertinent To Assessment Include: Tramadol Allergies: NKDA Social History: Unable To Obtain Due To Patient Status : Patient Cannot Communicate Relevant Social History Family History: There is no family history of premature cerebrovascular disease pertinent to this consultation ROS : 14 Points Review of Systems was performed and was negative except mentioned in HPI. Past Surgical History: There Is No Surgical History Contributory To Today?s Visit Examination: BP(120/79), Pulse(98), Blood Glucose(212) 1A: Level of Consciousness - Movements to Pain + 2 1B: Ask Month and Age - Aphasic + 2 1C: Blink Eyes & Squeeze Hands - Performs 0 Tasks + 2 2: Test Horizontal Extraocular Movements - Normal + 0 3: Test Visual Lua - No Visual Loss + 0 4: Test Facial Palsy (Use Grimace if Obtunded) - Minor paralysis (flat nasolabial fold, smile asymmetry) + 1 5A: Test Left Arm Motor Drift - No Effort Against [place] + 3 5B: Test Right Arm Motor Drift - No Effort Against [place] + 3 6A: Test Left Leg Motor Drift - No Effort Against [place] + 3 6B: Test Right Leg Motor Drift - No Movement + 4 7: Test Limb Ataxia (FNF/Heel-Abarca) - Does Not Understand + 0 8: Test Sensation - Mild-Moderate Loss: Can Sense Being Touched + 1 9: Test Language/Aphasia - Mute/Global Aphasia: No Usable Speech/Auditory Comprehension + 3 10: Test Dysarthria - Normal + 0 11: Test Extinction/Inattention - No abnormality + 0 NIHSS Score: 24 Pre-Morbid Modified Kendell Scale: Unable to assess Spoke with : Unable to reach ED physician. Please call us back with any questions. This consult was conducted in real time using interactive audio and video technology. Patient was informed of the technology being used for this visit and agreed to proceed. Patient located in hospital and provider located at home/office setting. Patient is being evaluated for possible acute neurologic impairment and high probability of imminent or life-threatening deterioration. I spent total of 40 minutes providing care to this patient, including time for face to face visit via telemedicine, review of medical records, imaging studies and discussion of findings with providers, the patient and/or family. Dr Mary Thomas [facility] For Inpatient follow-up with [facility] physician please call [facility] at . As we are not an outpatient service for any post hospital discharge needs please contact the hospital for assistance. If you have any questions for the [facility] physicians or need to reconsult for clinical or diagnostic changes please contact us via [facility] at .
--- NOTE | 2024-08-04 14:13 | XR_ITS ---
Exam: Chest 1 view, AP Date and time of exam: 08/04/2024, 2:00 PM Comparison: 08/01/2024 INDICATION: Chest pain. Findings: Normal heart size. No mediastinal adenopathy. No acute fracture No pulmonary edema or pneumonia. Impression: No active disease.
--- NOTE | 2024-08-04 15:06 | PD.RESHP ---
Documentation for date of: 08/04/24 HPI History of Present Illness Chief complaint: Acute encephalopathy History of present illness: Patient is a 79-year-old male with past medical history of recent CVA with right-sided residual deficits including hemiplegia and aphasia and dysphagia status post PEG tube, PE on Eliquis, GERD, cocci and hypertension who presented to the ER today due to concerns for strokelike symptoms at [facility]. According to the chart patient was alert and oriented with a GCS of 15 and 18 and talking during breakfast time between 7 and 7:30 AM however that he was found unresponsive to painful stimuli by nursing staff. Patient was also recently evaluated for pneumonia in our ER a couple of days ago for which she was discharged home on antibiotics. Stroke alert was called and a CTA was negative for acute hemorrhage mass effect or midline shift. CT angio of the head and neck did not reveal any significant neck artery stenosis or cerebral large vessel arterial occlusions or thrombus. Patient's NIHSS score was 24 which after speaking to at bedside as well as daughter at bedside states that the motor symptoms are not new and have been present since last CVA. Patient's symptom of unresponsiveness became apparent after he received tramadol today at the [facility]. At bedside patient was able to answer basic questions and does state that his left side feels a bit numb compared to usual but his main concern was the cough for the last couple of days. He is also experienced some diarrhea and he states that he has been having trouble urinating but denies any chest pain, palpitations, vomiting, nausea, dizziness or blurry vision. In the ED patient is vitals included blood pressure 120/79, pulse 90, RR 18, temperature 98.7, O2 sat 95 on room air CBC was significant for WBC of 13.4 and a hemoglobin of 12.4 CMP was significant for BUN of 25 and a glucose of 197. Creatinine was 0.8 which seems to be at his baseline. UA was noncontributory and urine tox was negative CT of the head was negative for acute hemorrhage mass effect or midline shift and CTA head and neck revealed no stenosis or thrombus or large vessel occlusion.EKG showed sinus rhythm with occasional PVCs. Chest x-ray mild vascular congestion Patient is 65 score is at 3 points which puts him at severe risk group: 14.0% 30day mortality Patient will be admitted for observation to workup possible stroke rule out versus likely acute encephalopathy. Review of Systems Review of Systems Systems Reviewed: All systems reviewed, normal except as documented Exam Vital Signs Temp Pulse Resp BP Pulse Ox O2 Del Method 98.6 F 87 16 108/67 94 L Room Air 08/04/24 14:14 08/04/24 14:14 08/04/24 14:14 08/04/24 14:14 08/04/24 14:14 08/04/24 14:14 Narrative Exam Constitutional: male that is somewhat slow in responding CVS: RRR, S1 and S2 present, no murmurs, rubs or gallops . RESP: CTAB, no SOB, no rales, rhonchi or wheezing. No respiratory Distress GI: Normal BS, Nontender/Nondistended. There is PEG tube inserted on the left abdominal wall without erythema or tenderness surrounding it. MSK: Full range of motion, No trauma or deformities or masses. Skin: Warm to touch, Dry. No rashes or lesions. No hematomas Neuro: (AAO) x 1 patient is unaware where he is located. NIHSS score of 24 Results: Labs 08/05/24 04:41 08/05/24 04:41 Labs: Short CBC 08/04/24 Range/Units 09:40 WBC 13.4 H (3.8-10.6) Thou/mm3 Hgb 12.4 L (13.5-16.0) g/dL Hct 36.0 L (41.0-53.0) % Plt Count 234 D (140-440) Thou/mm3 BMP 08/04/24 09:40 Sodium 144 Potassium 3.6 D Chloride 113 H Carbon Dioxide 22.1 BUN 25 H Creatinine 0.8 Glucose 197 H Calcium 8.7 Cardiac Enzymes 08/04/24 Range/Units 09:40 Troponin I < 0.020 (0.0-0.045) ng/mL Liver Function 08/04/24 Range/Units 09:40 Total Bilirubin 0.4 (0.3-1.2) mg/dL AST < 8 (0-34) U/L ALT 12 (10-49) U/L Alkaline Phosphatase 54 (46-116) U/L Albumin 3.0 L D (3.4-4.8) gm/dL Urine 08/04/24 Range/Units 11:00 Urine Color Yellow (Lt Yel-Yel) Urine Clarity Clear (Clear/Hazy) Urine pH 6.0 (5.0-7.0) Ur Specific Wilson 1.010 (1.001-1.035) Urine Protein 1+ A (Neg - Trace) Urine Glucose (UA) Negative (Negative) Quality Measures Quality Measures stroke Suspected type of Stroke: Unknown at this time Last known well (date): 08/04/24 Last known well (time): 07:30 Tenecteplase given: Reason(s) Tenecteplase not given: Stroke severity too mild (non-disabling) not given Rehab services: PT evaluation ordered and Speech Language Pathology eval ordered VTE Prophylaxis: pharmaceutical Antithrombotic by day 2:: ordered Statin ordered: >75 y/o moderate or high intensity dose Anticoagulation ordered for A-fib or flutter (current or hx): ordered Advance care planning discussed with:: spouse Medications Home Medications and Allergies Home Medications ?Medication ?Instructions ?Recorded ?Confirmed ?Type amlodipine 10 mg tablet 10 mg feeding tube QDAY 06/17/24 08/04/24 History apixaban 5 mg tablet (Eliquis) 5 mg feeding tube BID 06/17/24 08/04/24 History aspirin 325 mg tablet 325 mg feeding tube QDAY 06/17/24 08/04/24 History atorvastatin 80 mg tablet (Lipitor) 40 mg feeding tube QDAY 06/17/24 08/04/24 History docusate sodium 100 mg tablet 100 mg PO QDAY 06/17/24 08/04/24 History famotidine 20 mg tablet 20 mg feeding tube QDAY 06/17/24 08/04/24 History fenofibrate nanocrystallized 145 145 mg PO QDAY 06/17/24 08/04/24 History mg tablet fluconazole 200 mg tablet 200 mg feeding tube QDAY 06/17/24 08/04/24 History melatonin 3 mg tablet 3 mg PO HS PRN Insomnia 06/17/24 08/04/24 History oxcarbazepine 300 mg tablet 300 mg feeding tube BID 06/17/24 08/04/24 History tramadol 50 mg tablet 50 mg feeding tube Q6H PRN pain 6-9 06/17/24 08/04/24 History quetiapine 25 mg tablet 100 mg G-tube HS 08/04/24 08/04/24 History tamsulosin 0.4 mg capsule 0.4 mg PO QDAY 08/04/24 08/04/24 History Allergies Allergy/AdvReac Type Severity Reaction Status Date / Time No Known Allergies Allergy Verified 08/05/24 03:33 Visit Medications Acetaminophen (Acetaminophen 325 Mg Tablet) 650 mg PO Q6H PRN PRN Reason: Fever >101.5 Stop: 09/03/24 14:53 Acetaminophen (Acetaminophen 325 Mg Tablet) 650 mg PO Q6H PRN PRN Reason: PAIN SCALE 1-3 (mild Stop: 09/03/24 14:53 Heparin Sodium (Porcine) (Heparin Sod Inj 5000 Unit/Ml Vial) 5,000 unit SC Q8HR [facility] Stop: 08/18/24 21:59 Sodium Chloride (Ns) 1,000 mls @ 100 mls/hr IV Q10H [facility] Stop: 09/03/24 09:44 Last Admin: 08/04/24 10:51 Dose: 100 mls/hr Ondansetron HCl (Ondansetron Inj 2 Mg/Ml Inj 2 Ml) 4 mg IV Q4HR PRN PRN Reason: NAUSEA OR VOMITING Stop: 09/03/24 09:43 Ondansetron HCl (Ondansetron Inj 2 Mg/Ml Inj 2 Ml) 4 mg IV Q6H PRN; Protocol PRN Reason: NAUSEA OR VOMITING Stop: 09/03/24 14:53 Pantoprazole Sodium (Pantoprazole 40 Mg Tablet) 40 mg PO QDAY [facility] Stop: 09/04/24 08:59 Assessment & Plan Plan 79-year-old male with past medical history of recent CVA with right-sided residual deficits including hemiplegia and aphasia and dysphagia status post PEG tube, PE on Eliquis, GERD, cocci and hypertension admitted for acute encephalopathy versus CVA rule out #Acute encephalopathy likely metabolic versus toxic #CVA rule out #History of CVA with residual right-sided deficits Patient presented from the [facility] after he was found unresponsive to sternal rub at the facility following his p.o. medications. He has a previous history of CVA with residual right-sided deficit as well as facial drooping which was confirmed by and daughter that are at baseline however patient does seem somewhat lethargic and confused CT of the head was negative for acute hemorrhage mass effect or midline shift CTA head and neck did not show any large vessel occlusion or thrombus Teleneuro recommended MRI as well as other sources for metabolic encephalopathy Plan: ? MRI ? Inpatient neuroconsultation ? PT and speech therapy ?Rule out infectious sources, urine culture, blood culture, stool culture ? Will stop quetiapine, tramadol as it can be possible causes of unresponsiveness -NPO - Aspiration precautions #Community acquired pneumonia Patient presented with persistent cough in the last couple days and in the ER 2 days ago he was found to have a pneumonia. Repeat chest x-ray shows minimal improvement and on examination patient does have bilateral rails Patient saturating at the low 90s on room air Plan: ? Azithromycin and ceftriaxone started 08/04? #Diarrhea Patient is been complaining of several episodes of diarrhea in the last several days Plan: ? Due to patient coming from a assisted will rule out C. difficile with PCR ? Stool cultures ? Stool WBCs pending #Hyperglycemia Initial glucose 197. No listed history of diabetes in patient's SNF chart. A1c 5.4% -Bedside blood glucose checks q6h -Insulin sliding scale sensitive, adjust as necessary #History of coccidioidomycosis Patient has fluconazole 200 mg qday listed as home medication, started on admission to the SNF on 05/29/2024 and listed as precribed for 6 month course. Cocci IgM negative 06/16/24. Cocci IgG positive. -Continue fluconazole 200 mg qday #History of CVA with right sided residual deficits Head CT shows old stroke in the left brainstem pontine area consistent with patient's current baseline neurologic status. -Continue home aspirin 81 mg qday -Continue home atorvastatin 80 mg HS -Continue home oxcarbazepine 300 mg twice daily for neuropathic pain #History of hypertension Patient currently normotensive, will restart home BP meds once reconciled #History of PE Unknown when patient was diagnosed with PE. -Continue home Eliquis 5 mg BID #Dysphagia s/p G-tube placement Placed after patient had stroke 3 months back resulting in residual dysphagia. Per facility, patient on Jevity with 240 ml free water flushes q6h. -Resumed tube feeds Health maintenance plan: Dispo: Patient will be admitted under observation for further management of acute encephalopathy and ruling out of CVA Code: Full code DVT PPx: eliquis 5 mg po bid GI PPx: Protonix 40 p.o. daily FEN: N.p.o., pending dietitian recommendations I discussed patient's care with attending physician, Dr Candelario Maynard PGY3 Attending Provider Attestation/Addendum I reviewed labs, imaging, EKG, home medications and prior available records. Face to face evaluation was performed by me. I have personally examined the patient and discussed assessment and plan with the IM team. I reviewed the resident note and agree with the plan with exceptions as below. Acute encephalopathy History of CVA status post PEG tube CVA symptoms COPD without exacerbation Essential hypertension History of GERD Hold Seroquel Continue aspirin and atorvastatin Follow-up brain MRI Continue frequent neurochecks DuoNebs as needed Resume PEG tube feedings
--- NOTE | 2024-08-04 15:56 | PC.NURSE ---
pt had a BM. brief changed and pt adjusted in bed.
[2024-08-04 16:47] LABS: Procalcitonin 0.15 ng/ml (0.0-0.49)
[2024-08-04] MEDS: cefTRIAXone 1,000 MG in SODIUM CHLORIDE 0.9% (Popper) 50 ML 100 MG IV (16:55)
[2024-08-04] MEDS: AZITHROMYCIN INJ 500 MG in SODIUM CHLORIDE 0.9% 250 ML 250 ML 250 MG IV (17:52)
--- NOTE | 2024-08-04 20:30 | PC.NURSE ---
Called hospitalist, spoke to Dr. Mata regarding code status. MD made aware pt has POLST in chart, pt is DNR; however ordered code status is full code. Called daughter Meme regarding code status, states to follow what is on the POLST. Per , will change code status.
--- NOTE | 2024-08-04 20:42 | PC.NURSE ---
Report given to LATASHA [place] person
[2024-08-04] MEDS: APIXABAN 2.5 MG TABLET 5 MG GT (23:00)
[2024-08-04] MEDS: ATORVASTATIN CALCIUM 20 MG TABLET 80 MG PO (23:00)
[2024-08-05] VITALS (9 sets, daily range): BP systolic 112–139; BP diastolic 64–79; PULSE 82–87; RESP 19–96; TEMP 36.6–36.8; O2SAT 96–99
[2024-08-05 04:28] LABS: Stool for WBCs 1+ (Negative)
[2024-08-05 05:33] LABS: Basophils # (Auto) 0.1 Thou/mm3 (0.0-0.2); Basophils % (Auto) 0 % (0-2.5); Eosinophils # (Auto) 0.1 Thou/mm3 (0.0-0.5); Eosinophils % (Auto) 1 % (0-10); Hematocrit 35.2 % (41.0-53.0); Hemoglobin 12.2 g/dL (13.5-16.0); Immature Granulocytes % (Auto) 1 % (0-0); Immature Granulocytes Auto 0.11 Thou/mm3 (0.00-0.00); Lymphocytes # (Auto) 1.9 Thou/mm3 (1.0-4.8); Lymphocytes % (Auto) 14 % (10-50); Mean Corpuscular HGB Conc 34.7 g/dl (31.0-37.0); Mean Corpuscular Hemoglobin 30.4 pg (25.0-35.0); Mean Corpuscular Volume 88 fL (80-100); Monocytes % (Auto) 8 % (0-12); Neutrophils # (Auto) 10.5 Thou/mm3 (1.8-7.7); Neutrophils % (Auto) 77 % (37-80); Nucleated Red Blood Cell % 0 /100 WBC (0); Platelet Count 290 Thou/mm3 (140-440); RDW Standard Deviation 46.5 fL (35.1-43.9); Red Blood Count 4.01 Miln/mm3 (4.50-5.90); White Blood Count 13.7 Thou/mm3 (3.8-10.6)
[2024-08-05 06:30] LABS: Alanine Aminotransferase < 7 U/L (10-49); Albumin, Serum 2.9 gm/dL (3.4-4.8); Albumin/Globulin Ratio 1.1 (1.2-2.2); Alkaline Phosphatase 59 U/L (46-116); Anion Gap 9 (7-16); Aspartate Amino Transferase 14 U/L (0-34); BUN/Creatinine Ratio 34 Ratio (12-20); Bilirubin,Total 0.3 mg/dL (0.3-1.2); Blood Urea Nitrogen 24 mg/dL (9-23); Calcium 8.7 mg/dL (8.3-10.6); Calcium (Corrected) 9.6 mg/dL (8.5-10.1); Carbon Dioxide 24.3 mMol/L (20.0-31.0); Chloride 115 mMol/L (98-107); Creatinine (Component) 0.7 mg/dL (0.6-1.3); Globulin 2.6 gm/dL (2.3-3.5); Glucose 114 mg/dL (74-106); Magnesium 2.1 mg/dL (1.6-2.6); Osmolality,Calculated 299 (275-295); Phosphorous 3.2 mg/dL (2.4-5.1); Potassium 3.5 mMol/L (3.4-5.1); Sodium 148 mMol/L (136-145); Total Protein 5.5 gm/dL (5.7-8.2); eGFR > 60 See Note
--- NOTE | 2024-08-05 07:41 | ESPR_ITS ---
Documentation for date of: 08/05/24 Subjective Subjective Interval history: Patient was seen and examined in [facility] today. Minimal urine advised patient no complaints this morning. Blood cultures and urine cultures are negative. Patient had no fevers overnight and white count continues to trend down. Pro- Lior was negative and patient otherwise had no acute complaints. MRI of the brain revealed no acute infarcts or bleeds. Touched base with neurology who states that the patient is at baseline and is stable to be discharged back to [facility] Exam Vital Signs Temp Pulse Resp BP Pulse Ox O2 Del Method O2 Flow Rate 98 F 88 19 141/77 H 99 Room Air 2 08/06/24 04:00 08/06/24 04:00 08/06/24 04:00 08/06/24 04:00 08/06/24 04:00 08/06/24 04:00 08/05/24 20:00 Narrative Exam Constitutional: male that is somewhat slow in responding CVS: RRR, S1 and S2 present, no murmurs, rubs or gallops . RESP: CTAB, no SOB, no rales, rhonchi or wheezing. No respiratory Distress GI: Normal BS, Nontender/Nondistended. There is PEG tube inserted on the left abdominal wall without erythema or tenderness surrounding it. MSK: Full range of motion, No trauma or deformities or masses. Skin: Warm to touch, Dry. No rashes or lesions. No hematomas Neuro: (AAO) x 1 patient is unaware where he is located. NIHSS score of 24. R sided hemiplegia and aphasia, right-sided facial droop Objective Labs 08/06/24 04:45 08/06/24 04:45 Labs: Laboratory Results - last 24 hr 08/06/24 04:45 WBC 13.3 H RBC 4.16 L Hgb 12.4 L Hct 36.3 L MCV 87 MCH 29.8 MCHC 34.2 RDW Std Deviation 46.7 H Plt Count 332 D Neut % (Auto) 80 Lymph % (Auto) 12 [place] % (Auto) 6 Eos % (Auto) 1 Baso % (Auto) 0 Neut # (Auto) 10.6 H Lymph # (Auto) 1.6 [place] # (Auto) 0.8 Eos # (Auto) 0.1 Baso # (Auto) 0.0 Immature Gran # (Auto) 0.13 H Absolute Nucleated RBC 0.00 Immature Gran % 1 H Nucleated RBC % 0 Sodium 149 H Potassium 3.3 L Chloride 115 H Carbon Dioxide 25.4 Anion Gap 9 BUN 22 Creatinine 0.7 Estim Creat Clear Calc Not Performed. eGFR > 60 BUN/Creatinine Ratio 31 H Glucose 108 H Calculated Osmolality 300 H Calcium 8.9 Corrected Calcium 9.9 Phosphorus 2.9 Magnesium 2.2 Total Bilirubin 0.4 AST 14 ALT 10 Alkaline Phosphatase 64 Total Protein 5.4 L Albumin 2.8 L Globulin 2.6 Albumin/Globulin Ratio 1.1 L Quality Measures Quality Measures VTE prophylaxis Advance care planning discussed with:: patient Assessment & Plan Assessment Current Active Medications: Generic Name Dose Route Start Last Admin Trade Name Freq PRN Reason Stop Dose Admin Acetaminophen 650 mg 08/04/24 14:54 Acetaminophen 325 Mg Tablet PO 09/03/24 14:53 Q6H PRN Fever >101.5 Acetaminophen 650 mg 08/04/24 14:54 Acetaminophen 325 Mg Tablet PO 09/03/24 14:53 Q6H PRN PAIN SCALE 1-3 (mild Apixaban 5 mg 08/04/24 21:00 08/05/24 20:50 Apixaban 2.5 Mg Tablet GT 08/25/24 20:59 5 mg BID RE Administration Aspirin 81 mg 08/06/24 09:00 Aspirin 81 Mg Chew GT 09/04/24 08:59 QDAY RE Atorvastatin Calcium 80 mg 08/04/24 21:00 08/05/24 20:50 Atorvastatin Calcium 20 Mg Tablet PO 09/03/24 20:59 80 mg HS RE Administration Dextrose 25 ml 08/04/24 16:00 Dextrose 50%-Water Inj 50 Ml Syringe IV 09/03/24 15:59 Q15MIN PRN BG 50-70 responsive npo pt Dextrose 50 ml 08/04/24 16:00 Dextrose 50%-Water Inj 50 Ml Syringe IV 09/03/24 15:59 Q15MIN PRN BG <50 OR BG <70 & pt unresponsive Fluconazole 200 mg 08/05/24 09:00 08/05/24 08:27 Fluconazole 100 Mg Tablet PO 08/12/24 08:59 200 mg QDAY RE Administration Glucagon 1 mg 08/04/24 16:00 Glucagon Inj 1 Mg Vial IM Q15MIN PRN BG <70, and no IV access Azithromycin 500 mg/ Sodium 250 mls @ 250 mls/hr 08/05/24 09:00 08/05/24 08:29 Chloride IV 08/12/24 08:59 250 mls/hr QDAY RE Administration Ceftriaxone Sodium 1,000 mg/ 50 mls @ 100 mls/hr 08/04/24 15:52 08/05/24 08:28 Sodium Chloride IV 08/11/24 15:51 100 mls/hr QDAY RE Administration Insulin Human Lispro 0 unit 08/04/24 18:00 08/06/24 06:51 Insulin Lispro (Admelog) 1 Unit/0.01 Ml Unit SC 09/03/24 17:59 Not Given Q6HR RE Protocol Lansoprazole 30 mg 08/06/24 09:00 Lansoprazole 30 Mg Tab.Rap. GT 09/04/24 08:59 QDAY RE Ondansetron HCl 4 mg 08/04/24 14:54 Ondansetron Inj 2 Mg/Ml Inj 2 Ml IV 09/03/24 14:53 Q6H PRN NAUSEA OR VOMITING Protocol Potassium Chloride 40 meq 08/06/24 07:40 Potassium Chloride 10% 20 Meq/15 Ml Udc GT 08/06/24 07:41 X1 ONE Tamsulosin HCl 0.4 mg 08/05/24 10:15 08/05/24 12:18 Tamsulosin Hcl 0.4 Mg Capsule GT 09/04/24 10:14 0.4 mg QDAY RE Administration Plan 79-year-old male with past medical history of recent CVA with right-sided residual deficits including hemiplegia and aphasia and dysphagia status post PEG tube, PE on Eliquis, GERD, cocci and hypertension admitted for acute encephalopathy versus CVA rule out #Acute encephalopathy likely metabolic versus toxic #CVA ruledout #History of CVA with residual right-sided deficits Patient presented from the [facility] after he was found unresponsive to sternal rub at the facility following his p.o. medications. He has a previous history of CVA with residual right-sided deficit as well as facial drooping which was confirmed by and daughter that are at baseline however patient does seem somewhat lethargic and confused CT of the head was negative for acute hemorrhage mass effect or midline shift CTA head and neck did not show any large vessel occlusion or thrombus Teleneuro recommended MRI as well as other sources for metabolic encephalopathy MRI is negative for bleed or acute infarcts Spoke to neurology and patient is currently at baseline Plan: ?Pending final urine and blood cultures ? Will stop quetiapine, tramadol as it can be possible causes of unresponsiveness -Restarted on PEG tube feedings - Aspiration precautions #Community acquired pneumonia Patient presented with persistent cough in the last couple days and in the ER 2 days ago he was found to have a pneumonia. Repeat chest x-ray shows minimal improvement and on examination patient does have bilateral rails Patient saturating at the low 90s on room air Plan: ? Azithromycin and ceftriaxone started 08/04? #Diarrhea Patient is been complaining of several episodes of diarrhea in the last several days Plan: ? Due to patient coming from a senior care will rule out C. difficile with PCR ? Stool cultures negative ? Stool WBCs negative #Hyperglycemia Initial glucose 197. No listed history of diabetes in patient's SNF chart. A1c 5.4% -Bedside blood glucose checks q6h -Insulin sliding scale sensitive, adjust as necessary #History of coccidioidomycosis Patient has fluconazole 200 mg qday listed as home medication, started on admission to the SNF on 05/29/2024 and listed as precribed for 6 month course. Cocci IgM negative 06/16/24. Cocci IgG positive. -Continue fluconazole 200 mg qday #History of CVA with right sided residual deficits Head CT shows old stroke in the left brainstem pontine area consistent with patient's current baseline neurologic status. -Continue home aspirin 81 mg qday -Continue home atorvastatin 80 mg HS -Continue home oxcarbazepine 300 mg twice daily for neuropathic pain #History of hypertension Patient currently normotensive, will restart home BP meds once reconciled #History of PE Unknown when patient was diagnosed with PE. -Continue home Eliquis 5 mg BID #Dysphagia s/p G-tube placement Placed after patient had stroke 3 months back resulting in residual dysphagia. Per facility, patient on Jevity with 240 ml free water flushes q6h. -Resumed tube feeds Health maintenance plan: Dispo: Patient will be admitted under observation for further management of acute encephalopathy and ruling out of CVA Code: Full code DVT PPx: eliquis 5 mg po bid GI PPx: Protonix 40 p.o. daily FEN: N.p.o., pending dietitian recommendations I discussed patient's care with attending physician, Dr Candelario Maynard PGY3 Attending Provider Attestation/Addendum I reviewed labs, imaging, EKG, home medications and prior available records. Face to face evaluation was performed by me. I have personally examined the patient and discussed assessment and plan with the IM team. I reviewed the resident note and agree with the plan with exceptions as below. See discharge summary on 08/06
[2024-08-05] MEDS: APIXABAN 2.5 MG TABLET 5 MG GT ×2 (08:27→20:50)
[2024-08-05] MEDS: FLUCONAZOLE 100 MG TABLET 200 MG PO (08:27)
[2024-08-05] MEDS: ASPIRIN EC 81 MG TABEC PO (08:27)
[2024-08-05] MEDS: PANTOPRAZOLE 40 MG TABLET PO (08:27)
[2024-08-05] MEDS: cefTRIAXone 1,000 MG in SODIUM CHLORIDE 0.9% (Popper) 50 ML 100 MG IV (08:28)
[2024-08-05] MEDS: AZITHROMYCIN INJ 500 MG in SODIUM CHLORIDE 0.9% 250 ML 250 ML 250 MG IV (08:29)
--- NOTE | 2024-08-05 11:28 | PC.SS ---
Addendum entered by Olga Gerardo 08/05/24 16:34: [facility] at [facility]20 [facility] has not provided auth. transport remains on will call. SS informed LATASHA Eid and MARLIN Petty. SS attempted to contact patient's daughter, Meme [phone] to inform her of discharge today; SS left message requesting a return call. [facility] informed of transport pending with [facility]. SS contacted [facility], reservation #[id number] provided. 2-4hr. window provided for pick out hand. Transportation form submitted via About to [facility]. SS contacted [facility] stated she has not received auth. from [facility] and transport will be placed on willcall. SS requested [facility] contact Tele [phone] after 1630 to arrange transportation time. SS informed LATASHA Eid patient will be discharging today, RN stated patient appropriate for gurney transportation. SS to update ETA for pickup. Addendum entered by Olga Gerardo 08/05/24 11:49: Clinicals submitted via About [facility]ATTIE to [facility]. Addendum entered by Olga Humaira 08/05/24 11:34: SS contacted [facility] to confirm patient's return to SNF, Susie stated patient can return today, 08/05/24. [facility] requested updated clinicals be sent via ABOUT [facility]ATTIE. ETA Pending, Dr. Mukesh Maynard informed. SS contacted by Dr. Mukesh Maynard and informed patient may discharge today if SNF can accept. SS to confirm with [facility] SNF. SS contacted patient's spouse Marquita [phone] and informed her patient may be discharging today. Original Note: SS attempted to meet with patient to complete initial assessment. Patient unable to provide information due to having secretion. SS contacted patient's spouse Marquita Aguilar [phone] to obtain information for initial assessment. Patient's spouse Marquita confirmed both she and patient are Azerbaijani speaking only. Marquita stated patient's daughter Meme Dey [phone] is the primary medical surrogate decision maker due to language barrier. Marquiat explained patient resides at [facility] ([facility]) and will be returning to [facility] upon discharge. Patient's spouse further explained patient is max assist with ADLs and ambulation. PCP: Dr. Rashid. Primary Medical Surrogate Decision Maker: Daughter Meme Dey [phone] Discharge plan: Return to [facility], transportation assistance needed.
[2024-08-05] MEDS: TAMSULOSIN HCL 0.4 MG CAPSULE GT (12:18)
--- NOTE | 2024-08-05 13:25 | ESDS_ITS ---
Planned Discharge Date 08/05/24 DS: Providers Provider Date of admission: 08/04/24 14:54 Primary care physician: Fabian Rashid MD Admitting Provider: Joe Palomino MD Attending Provider on Admission: Joe Palomino MD Consults: 08/04/24 09:44 Consult to Neurology / Tele-Neurology Routine Comment: Consulting Provider: [facility] 08/04/24 15:27 Consult to Neurology / Tele-Neurology Stat Comment: Stroke r/o likely encephalopathy Consulting Provider: Saud Yeung 08/04/24 15:42 Referral Physical Therapy Routine Comment: Physician Instructions: 08/04/24 15:50 Referral Registered Dietitian Routine Comment: 08/05/24 03:52 Referral Infection Control Routine Comment: Reason for Infection Control Referral: Admitted with Diarrhea Patient In Isolation Health Equity Referral - Knowledge Deficit Routine Comment: Positive screening for knowledge deficit needs. Attending Provider on DC: Micheal Maynard MD Discharging Provider: Micheal Maynard MD DS: Diagnosis Problem List Completed Was Problem List Reviewed/Reconciled?: Yes Hospital Course Hospital Course Hospital course: Patient is a 79-year-old male with past medical history of recent CVA with right-sided residual deficits including hemiplegia and aphasia and dysphagia status post PEG tube, PE on Eliquis, GERD, cocci and hypertension who presented to the ER from [facility]. According to the chart patient was alert and oriented with a GCS of 15 and 18 and talking during breakfast time between 7 and 7:30 AM however that he was found unresponsive to painful stimuli by nursing staff. Patient was also recently evaluated for pneumonia in our ER a couple of days ago for which she was discharged home on antibiotics. Stroke alert was called in the ER and a CTA was negative for acute hemorrhage mass effect or midline shift. CT angio of the head and neck did not reveal any significant neck artery stenosis or cerebral large vessel arterial occlusions or thrombus. Patient's NIHSS score was 24 which after speaking to at bedside as well as daughter at bedside states that the motor symptoms are not new and have been present since last CVA. Patient's symptom of unresponsiveness became apparent after he received seroquel and tramadol today at the [facility]. At bedside patient was able to answer basic questions and does state that his left side feels a bit numb compared to usual but his main concern was the cough for the last couple of days. He is also experienced some diarrhea and he states that he has been having trouble urinating but denies any chest pain, palpitations, vomiting, nausea, dizziness or blurry vision. Patient was placed on observation for further workup of possible CVA. MRI Showed no acute hemorrhage mass effect or midline shift or acute infarct. There is prominent chronic microvascular changes. Chest x-ray revealed no active disease and was similar to the previous 1 patient presented on 08/02/2024 to the ER. EKG showed sinus bradycardia. Patient's labs remained stable without any fevers or chills. Patient continued to have some episodes of diarrhea likely secondary to medication. Procalcitonin was negative and stool white blood cells were negative. UA was noncontributory. Overall patient's lethargy and confusion was likely secondary to polypharmacy. We recommend stopping Seroquel and tramadol as well as melatonin at this time. Patient can return to the facility and continue with his previous regimen of antibiotics given to him in the ER on 08/02/2024 for his pneumonia. Patient also needs frequent oral care and encouragement to cough out any secretions along with aspiration precautions. Problems addressed during this stay: #Acute encephalopathy likely polypharmacy #CVA ruled out #History of CVA with residual right-sided deficits #Community acquired pneumonia #Diarrhea #Hyperglycemia #History of coccidioidomycosis #History of CVA with right sided residual deficits #History of hypertension #History of PE #Dysphagia s/p G-tube placement Plan: ? Stop taking tramadol and Seroquel as well as melatonin at this time ? Follow-up with PCP in 1 to 2 weeks ? Patient needs aspiration precautions as well as oral care ? Can continue PEG tube feeds and patient needs encouragement to cough secretions ? Continue all other medications as previously prescribed ? Continue Augmentin that was prescribed in the ER on 08/02/2024 for an additional 2 days to complete the course for pneumonia I discussed patient's care with attending physician, Dr Candelario Maynard PGY3 Time Spent with Patient Time attestation: Total time spent providing and/or coordinating discharge services: Exam Vital Signs Temp Pulse Resp BP Pulse Ox O2 Del Method O2 Flow Rate 97.8 F 86 19 132/73 H 99 Nasal Cannula 2 08/05/24 08:00 08/05/24 08:00 08/05/24 08:00 08/05/24 08:00 08/05/24 08:00 08/05/24 08:00 08/05/24 08:00 Narrative Exam Constitutional: male that is somewhat slow in responding CVS: RRR, S1 and S2 present, no murmurs, rubs or gallops . RESP: CTAB, no SOB, no rales, rhonchi or wheezing. No respiratory Distress GI: Normal BS, Nontender/Nondistended. There is PEG tube inserted on the left abdominal wall without erythema or tenderness surrounding it. MSK: Full range of motion, No trauma or deformities or masses. Skin: Warm to touch, Dry. No rashes or lesions. No hematomas Neuro: (AAO) x 1 patient is unaware where he is located. NIHSS score of 24. R sided hemiplegia and aphasia, right-sided facial droop Discharge Plan Problem List Was Problem List Reviewed/Reconciled?: Yes Plan Patient Disposition: Xfer Skilled Nsg Fac (SNF) Disposition Comment: [facility] Patient condition on transfer: Stable Care Plan Goals: Discharge Recommendations: -Follow up with PCP within 1 week of discharge -Hold tramadol, quetiapine and melatonin due to altered mental status -Continue rest of medications as previously prescribed -Complete previous antibiotic regimen for pneumonia for a total of 5 days (2 days left) -Return to the ED or call EMS if symptoms return and/or worsen. Prescriptions/Referrals Prescriptions/Med Rec: Continued atorvastatin [Lipitor] 80 mg Tablet 40 mg feeding tube QDAY aspirin 325 mg Tablet 325 mg feeding tube QDAY fluconazole 200 mg tablet 200 mg feeding tube QDAY oxcarbazepine 300 mg tablet 300 mg feeding tube BID famotidine 20 mg tablet 20 mg feeding tube QDAY amlodipine 10 mg tablet 10 mg feeding tube QDAY Rx Instructions: hold if sbp <110 HR <60 docusate sodium 100 mg Tablet 100 mg PO QDAY Rx Instructions: give through feeding tube fenofibrate nanocrystallized 145 mg tablet 145 mg PO QDAY Rx Instructions: give via feeding tube Eliquis 5 mg tablet 5 mg feeding tube BID acetaminophen 325 mg/10.15 mL Solution 650 mg G-tube Q6HR PRN (Reason: Pain 1-10 Or Fever > 100.4) Qty: 1015 0RF amoxicillin-pot clavulanate 875-125 mg tablet 1 tab PO BID Qty: 14 0RF tamsulosin 0.4 mg capsule 0.4 mg PO QDAY Held melatonin 3 mg Tablet 3 mg PO HS PRN (Reason: Insomnia) Hold Instructions: Resume on 08/11/24. Discontinued tramadol 50 mg tablet 50 mg feeding tube Q6H PRN (Reason: pain 6-9) doxycycline hyclate 100 mg tablet 100 mg PO BID Qty: 14 0RF quetiapine 25 mg Tablet 100 mg G-tube HS Referrals: Fabian Rashid MD [Primary Care Provider] - Patient/Caregiver Discharge Instructions Print Language: New Zealander Stand Alone Forms: [facility]ina Award Info., Patient Portal Info Letter Discharge Order Discharge Orders: Discharge (Routine); Ordered 08/05/24 Ordered By: Micheal Maynard Quality Discharge Quality Measures VTE prophylaxis Attestestation MD Attestation I reviewed labs, imaging, EKG, home medications and prior available records. Face to face evaluation was performed by me. I have personally examined the patient and discussed assessment and plan with the IM team. I reviewed the resident note and agree with the plan with exceptions as below. Acute encephalopathy History of CVA status post PEG tube CVA symptoms COPD without exacerbation Essential hypertension History of GERD Hold Seroquel Continue aspirin and atorvastatin Follow-up brain MRI: Negative for acute changes Continue frequent neurochecks DuoNebs as needed Resume PEG tube feedings
[2024-08-05] MEDS: ATORVASTATIN CALCIUM 20 MG TABLET 80 MG PO (20:50)
[2024-08-06] VITALS: BP 139/71; PULSE 84; PULSE 87; RESP 19; TEMP 36.1; O2SAT 97
[2024-08-06 04:00] VITALS: BP 141/77; PULSE 78; PULSE 88; RESP 19; TEMP 36.6; O2SAT 99
[2024-08-06 06:00] LABS: Basophils % (Auto) 0 % (0-2.5); Eosinophils # (Auto) 0.1 Thou/mm3 (0.0-0.5); Eosinophils % (Auto) 1 % (0-10); Hematocrit 36.3 % (41.0-53.0); Hemoglobin 12.4 g/dL (13.5-16.0); Immature Granulocytes % (Auto) 1 % (0-0); Immature Granulocytes Auto 0.13 Thou/mm3 (0.00-0.00); Lymphocytes # (Auto) 1.6 Thou/mm3 (1.0-4.8); Lymphocytes % (Auto) 12 % (10-50); Mean Corpuscular HGB Conc 34.2 g/dl (31.0-37.0); Mean Corpuscular Hemoglobin 29.8 pg (25.0-35.0); Mean Corpuscular Volume 87 fL (80-100); Monocytes # (Auto) 0.8 Thou/mm3 (0.0-0.8); Monocytes % (Auto) 6 % (0-12); Neutrophils # (Auto) 10.6 Thou/mm3 (1.8-7.7); Neutrophils % (Auto) 80 % (37-80); Nucleated Red Blood Cell % 0 /100 WBC (0); Platelet Count 332 Thou/mm3 (140-440); RDW Standard Deviation 46.7 fL (35.1-43.9); Red Blood Count 4.16 Miln/mm3 (4.50-5.90); White Blood Count 13.3 Thou/mm3 (3.8-10.6)
[2024-08-06 06:45] LABS: Alanine Aminotransferase 10 U/L (10-49); Albumin, Serum 2.8 gm/dL (3.4-4.8); Albumin/Globulin Ratio 1.1 (1.2-2.2); Alkaline Phosphatase 64 U/L (46-116); Anion Gap 9 (7-16); Aspartate Amino Transferase 14 U/L (0-34); BUN/Creatinine Ratio 31 Ratio (12-20); Bilirubin,Total 0.4 mg/dL (0.3-1.2); Blood Urea Nitrogen 22 mg/dL (9-23); Calcium 8.9 mg/dL (8.3-10.6); Calcium (Corrected) 9.9 mg/dL (8.5-10.1); Carbon Dioxide 25.4 mMol/L (20.0-31.0); Chloride 115 mMol/L (98-107); Creatinine (Component) 0.7 mg/dL (0.6-1.3); Globulin 2.6 gm/dL (2.3-3.5); Glucose 108 mg/dL (74-106); Magnesium 2.2 mg/dL (1.6-2.6); Osmolality,Calculated 300 (275-295); Phosphorous 2.9 mg/dL (2.4-5.1); Potassium 3.3 mMol/L (3.4-5.1); Sodium 149 mMol/L (136-145); Total Protein 5.4 gm/dL (5.7-8.2); eGFR > 60 See Note
[2024-08-06 08:00] VITALS: BP 130/68; PULSE 82; PULSE 87; RESP 16; TEMP 36.7; O2SAT 99
--- NOTE | 2024-08-06 09:08 | PC.SS ---
Addendum entered by Mila Floyd 08/06/24 09:33: SS spoke to pt dtr Meme in regards to DC today. Meme stated okay. Addendum entered by Mila Floyd 08/06/24 09:31: ETA set for 1230 going back to [facility]. Qian PAGAN made aware as well as December Original Note: SS contacted [facility] in regards to pt nt being picked up yesterday, per [employer] new ride will need to be submitted. Resv #[id number]. SS received a call from [facility] they received call fro [facility]. Just pending paper work.
[2024-08-06] MEDS: POTASSIUM CHLORIDE 10% 20 MEQ/15 ML UDC 40 MEQ GT (09:20)
[2024-08-06] MEDS: TAMSULOSIN HCL 0.4 MG CAPSULE GT (09:20)
[2024-08-06] MEDS: ASPIRIN 81 MG CHEW GT (09:20)
[2024-08-06] MEDS: LANSOPRAZOLE 30 MG TAB.RAP.DR GT (09:21)
[2024-08-06] MEDS: APIXABAN 2.5 MG TABLET 5 MG GT (09:21)
[2024-08-06] MEDS: cefTRIAXone 1,000 MG in SODIUM CHLORIDE 0.9% (Popper) 50 ML 100 MG IV (09:22)
[2024-08-06 09:33] VITALS: BMI 23.6
[2024-08-06] MEDS: AZITHROMYCIN INJ 500 MG in SODIUM CHLORIDE 0.9% 250 ML 250 ML 250 MG IV (10:16)
[2024-08-06] MEDS: FLUCONAZOLE SUSP 40 MG/ML ML 200 MG GT (10:20)
--- NOTE | 2024-08-06 11:51 | PD.ADDDSCHGE ---
Addendum Discharge Addendum Date of report being addended: 08/05/24 Narrative: Mr. Gerardo PERKINS is a 79-year-old male with previous history of CVA with residual deficits currently at baseline who was admitted on 08/04/2024 for CVA rule out. Patient continues to remain stable and his blood cultures and urine cultures have been negative thus far. Patient is currently at baseline in terms of his neurological findings and imaging is negative for any acute changes. Patient's encephalopathy was likely secondary to polypharmacy at that time. Patient is stable and ready to be discharged back to [facility] transitional care pending transportation. I discussed patient's care with attending physician, Dr Candelario Maynard PGY3
[2024-08-06 12:00] VITALS: BP 135/72; PULSE 83; PULSE 86; RESP 28; TEMP 36.1; O2SAT 96
--- NOTE | 2024-08-06 12:37 | PD.RESPRO ---
Documentation for date of: 08/06/24 Subjective Subjective Interval history: Patient seen and assessed at bedside this morning. Patient appears to be doing much better. AAOx3. Patient denies any active complaint. Exam Vital Signs Temp Pulse Resp BP Pulse Ox O2 Del Method O2 Flow Rate 98.1 F 82 16 130/68 99 Room Air 2 08/06/24 08:00 08/06/24 08:00 08/06/24 08:00 08/06/24 08:00 08/06/24 08:00 08/06/24 08:00 08/05/24 20:00 Narrative Exam Constitutional: male that is somewhat slow in responding, resting comfortably in bed. CVS: RRR, S1 and S2 present, no murmurs, rubs or gallops . RESP: Rhonchi on auscultation bilaterally. GI: Normal BS, Nontender/Nondistended. There is PEG tube inserted on the left abdominal wall without erythema or tenderness surrounding it. MSK: Full range of motion, No trauma or deformities or masses. Skin: Warm to touch, Dry. No rashes or lesions. No hematomas, no edema noted lower extremities. Neuro: (AAO) x 3 although slow to respond. Equal pressure motor strength 4 out of 5. Objective Labs 08/06/24 04:45 08/06/24 04:45 Labs: Laboratory Results - last 24 hr 08/06/24 04:45 WBC 13.3 H RBC 4.16 L Hgb 12.4 L Hct 36.3 L MCV 87 MCH 29.8 MCHC 34.2 RDW Std Deviation 46.7 H Plt Count 332 D Neut % (Auto) 80 Lymph % (Auto) 12 Atkinson % (Auto) 6 Eos % (Auto) 1 Baso % (Auto) 0 Neut # (Auto) 10.6 H Lymph # (Auto) 1.6 Atkinson # (Auto) 0.8 Eos # (Auto) 0.1 Baso # (Auto) 0.0 Immature Gran # (Auto) 0.13 H Absolute Nucleated RBC 0.00 Immature Gran % 1 H Nucleated RBC % 0 Sodium 149 H Potassium 3.3 L Chloride 115 H Carbon Dioxide 25.4 Anion Gap 9 BUN 22 Creatinine 0.7 Estim Creat Clear Calc Not Performed. eGFR > 60 BUN/Creatinine Ratio 31 H Glucose 108 H Calculated Osmolality 300 H Calcium 8.9 Corrected Calcium 9.9 Phosphorus 2.9 Magnesium 2.2 Total Bilirubin 0.4 AST 14 ALT 10 Alkaline Phosphatase 64 Total Protein 5.4 L Albumin 2.8 L Globulin 2.6 Albumin/Globulin Ratio 1.1 L Quality Measures Quality Measures VTE prophylaxis Advance care planning discussed with:: patient Assessment & Plan Assessment Current Active Medications: Generic Name Dose Route Start Last Admin Trade Name Freq PRN Reason Stop Dose Admin Acetaminophen 650 mg 08/04/24 14:54 Acetaminophen 325 Mg Tablet PO 09/03/24 14:53 Q6H PRN Fever >101.5 Acetaminophen 650 mg 08/04/24 14:54 Acetaminophen 325 Mg Tablet PO 09/03/24 14:53 Q6H PRN PAIN SCALE 1-3 (mild Apixaban 5 mg 08/04/24 21:00 08/06/24 09:21 Apixaban 2.5 Mg Tablet GT 08/25/24 20:59 5 mg BID RE Administration Aspirin 81 mg 08/06/24 09:00 08/06/24 09:20 Aspirin 81 Mg Chew GT 09/04/24 08:59 81 mg QDAY RE Administration Atorvastatin Calcium 80 mg 08/04/24 21:00 08/05/24 20:50 Atorvastatin Calcium 20 Mg Tablet PO 09/03/24 20:59 80 mg HS RE Administration Dextrose 25 ml 08/04/24 16:00 Dextrose 50%-Water Inj 50 Ml Syringe IV 09/03/24 15:59 Q15MIN PRN BG 50-70 responsive npo pt Dextrose 50 ml 08/04/24 16:00 Dextrose 50%-Water Inj 50 Ml Syringe IV 09/03/24 15:59 Q15MIN PRN BG <50 OR BG <70 & pt unresponsive Fluconazole 200 mg 08/06/24 09:00 08/06/24 10:20 Fluconazole Susp 40 Mg/Ml Ml GT 08/13/24 08:59 200 mg QDAY RE Administration Glucagon 1 mg 08/04/24 16:00 Glucagon Inj 1 Mg Vial IM Q15MIN PRN BG <70, and no IV access Azithromycin 500 mg/ Sodium 250 mls @ 250 mls/hr 08/05/24 09:00 08/06/24 10:16 Chloride IV 08/12/24 08:59 250 mls/hr QDAY RE Administration Ceftriaxone Sodium 1,000 mg/ 50 mls @ 100 mls/hr 08/04/24 15:52 08/06/24 09:22 Sodium Chloride IV 08/11/24 15:51 100 mls/hr QDAY RE Administration Insulin Human Lispro 0 unit 08/04/24 18:00 08/06/24 06:51 Insulin Lispro (Admelog) 1 Unit/0.01 Ml Unit SC 09/03/24 17:59 Not Given Q6HR RE Protocol Lansoprazole 30 mg 08/06/24 09:00 08/06/24 09:21 Lansoprazole 30 Mg Tab.Rap.Dr MONTENEGRO 09/04/24 08:59 30 mg QDAY RE Administration Ondansetron HCl 4 mg 08/04/24 14:54 Ondansetron Inj 2 Mg/Ml Inj 2 Ml IV 09/03/24 14:53 Q6H PRN NAUSEA OR VOMITING Protocol Tamsulosin HCl 0.4 mg 08/05/24 10:15 08/06/24 09:20 Tamsulosin Hcl 0.4 Mg Capsule GT 09/04/24 10:14 0.4 mg QDAY RE Administration Plan #Acute encephalopathy?improving Infectious VS polypharmacy Patient came in severely altered Today patient is doing much better and is able to answer questions appropriately although slow. Patient has equal upper extremity strength. Encephalopathy likely secondary to polypharmacy which has not improved #Community acquired pneumonia #Diarrhea #Hyperglycemia #History of coccidioidomycosis #History of CVA with right sided residual deficits #History of hypertension #History of PE #Dysphagia s/p G-tube placement Continue management per primary team Case discussed with attending Dr Anjana Beckett MD PGY3 Attending Provider Attestation/Addendum I personally have seen and examined the patient at the bedside and I agree with resident's findings, assessment and plan of care. 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 Nothing new on exam. Continue with the current management and is stable from neurology standpoint for discharge.
--- NOTE | 2024-08-06 12:50 | PC.NURSE ---
SPOKE TO ABEBE PAZ AT [facility] [phone] REGARDING DISCHARGE.
--- NOTE | 2024-08-06 17:47 | ESDS_ITS ---
Planned Discharge Date 08/06/24 DS: Providers Provider Date of admission: 08/04/24 14:54 Primary care physician: Fabian Rashid MD Admitting Provider: Joe Palomino MD Attending Provider on Admission: Joe Palomino MD Consults: 08/04/24 09:44 Consult to Neurology / Tele-Neurology Routine Comment: Consulting Provider: [facility] 08/04/24 15:27 Consult to Neurology / Tele-Neurology Stat Comment: Stroke r/o likely encephalopathy Consulting Provider: Saud Yeung 08/04/24 15:42 Referral Physical Therapy Routine Comment: Physician Instructions: 08/04/24 15:50 Referral Registered Dietitian Routine Comment: 08/05/24 03:52 Referral Infection Control Routine Comment: Reason for Infection Control Referral: Admitted with Diarrhea Patient In Isolation Health Equity Referral - Knowledge Deficit Routine Comment: Positive screening for knowledge deficit needs. Attending Provider on DC: Joe Palomino MD Discharging Provider: Joe Palomino MD Diagnosis Problem List Completed Was Problem List Reviewed/Reconciled?: Yes Hospital Course - Hospitalist Hospital Course Hospital course: Patient is a 79-year-old male with past medical history of recent CVA with right-sided residual deficits including hemiplegia and aphasia and dysphagia status post PEG tube, PE on Eliquis, GERD, cocci and hypertension who presented to the ER from [facility]. According to the chart patient was alert and oriented with a GCS of 15 and 18 and talking during breakfast time between 7 and 7:30 AM however that he was found unresponsive to painful stimuli by nursing staff. Patient was also recently evaluated for pneumonia in our ER a couple of days ago for which she was discharged home on antibiotics. Stroke alert was called in the ER and a CTA was negative for acute hemorrhage mass effect or midline shift. CT angio of the head and neck did not reveal any significant neck artery stenosis or cerebral large vessel arterial occlusions or thrombus. Patient's NIHSS score was 24 which after speaking to at bedside as well as daughter at bedside states that the motor symptoms are not new and have been present since last CVA. Patient's symptom of unresponsiveness became apparent after he received seroquel and tramadol today at the [facility]. At bedside patient was able to answer basic questions and does state that his left side feels a bit numb compared to usual but his main concern was the cough for the last couple of days. He is also experienced some diarrhea and he states that he has been having trouble urinating but denies any chest pain, palpitations, vomiting, nausea, dizziness or blurry vision. Patient was placed on observation for further workup of possible CVA. MRI Showed no acute hemorrhage mass effect or midline shift or acute infarct. There is prominent chronic microvascular changes. Chest x-ray revealed no active disease and was similar to the previous 1 patient presented on 08/02/2024 to the ER. EKG showed sinus bradycardia. Patient's labs remained stable without any fevers or chills. Patient continued to have some episodes of diarrhea likely secondary to medication. Procalcitonin was negative and stool white blood cells were negative. UA was noncontributory. Overall patient's lethargy and confusion was likely secondary to polypharmacy. We recommend stopping Seroquel and tramadol as well as melatonin at this time. Patient can return to the facility and continue with his previous regimen of antibiotics given to him in the ER on 08/02/2024 for his pneumonia. Patient also needs frequent oral care and encouragement to cough out any secretions along with aspiration precautions. Problems addressed during this stay: #Acute encephalopathy likely polypharmacy #CVA ruled out #History of CVA with residual right-sided deficits #Community acquired pneumonia #Diarrhea #Hyperglycemia #History of coccidioidomycosis #History of CVA with right sided residual deficits #History of hypertension #History of PE #Dysphagia s/p G-tube placement Plan: ? Stop taking tramadol and Seroquel as well as melatonin at this time ? Follow-up with PCP in 1 to 2 weeks ? Patient needs aspiration precautions as well as oral care ? Can continue PEG tube feeds and patient needs encouragement to cough secretions ? Continue all other medications as previously prescribed ? Continue Augmentin that was prescribed in the ER on 08/02/2024 for an additional 2 days to complete the course for pneumonia Time Spent with Patient Time attestation: Total time spent providing and/or coordinating discharge services: Discharge Results Labs Diagrams: 08/06/24 04:45 08/06/24 04:45 Labs: Short CBC 08/06/24 Range/Units 04:45 WBC 13.3 H (3.8-10.6) Thou/mm3 Hgb 12.4 L (13.5-16.0) g/dL Hct 36.3 L (41.0-53.0) % Plt Count 332 D (140-440) Thou/mm3 BMP 08/06/24 04:45 Sodium 149 H Potassium 3.3 L Chloride 115 H Carbon Dioxide 25.4 BUN 22 Creatinine 0.7 Glucose 108 H Calcium 8.9 Liver Function 08/06/24 Range/Units 04:45 Total Bilirubin 0.4 (0.3-1.2) mg/dL AST 14 (0-34) U/L ALT 10 (10-49) U/L Alkaline Phosphatase 64 (46-116) U/L Albumin 2.8 L (3.4-4.8) gm/dL Pending Results Pending results: 08/04/24 23:55 Stool Stool Culture - Pending Exam Vital Signs Temp Pulse Resp BP Pulse Ox O2 Del Method O2 Flow Rate 97.0 F 86 28 H 135/72 H 96 Room Air 2 08/06/24 12:00 08/06/24 12:00 08/06/24 12:00 08/06/24 12:00 08/06/24 12:00 08/06/24 12:00 08/06/24 12:00 Narrative Constitutional: male that is somewhat slow in responding CVS: RRR, S1 and S2 present, no murmurs, rubs or gallops . RESP: CTAB, no SOB, no rales, rhonchi or wheezing. No respiratory Distress GI: Normal BS, Nontender/Nondistended. There is PEG tube inserted on the left abdominal wall without erythema or tenderness surrounding it. MSK: Full range of motion, No trauma or deformities or masses. Skin: Warm to touch, Dry. No rashes or lesions. No hematomas Neuro: (AAO) x 1 patient is unaware where he is located. NIHSS score of 24. R sided hemiplegia and aphasia, right-sided facial droop Discharge Plan Problem List Was Problem List Reviewed/Reconciled?: Yes Plan Patient Disposition: Xfer Skilled Nsg Fac (SNF) Disposition Comment: [facility] Patient condition on transfer: Stable Care Plan Goals: Discharge Recommendations: -Follow up with PCP within 1 week of discharge -Hold tramadol, quetiapine and melatonin due to altered mental status -Continue rest of medications as previously prescribed -Complete previous antibiotic regimen for pneumonia for a total of 5 days (2 days left) -Return to the ED or call EMS if symptoms return and/or worsen. Prescriptions/Referrals Prescriptions/Med Rec: Continued atorvastatin [Lipitor] 80 mg Tablet 40 mg feeding tube QDAY aspirin 325 mg Tablet 325 mg feeding tube QDAY fluconazole 200 mg tablet 200 mg feeding tube QDAY oxcarbazepine 300 mg tablet 300 mg feeding tube BID famotidine 20 mg tablet 20 mg feeding tube QDAY amlodipine 10 mg tablet 10 mg feeding tube QDAY Rx Instructions: hold if sbp <110 HR <60 docusate sodium 100 mg Tablet 100 mg PO QDAY Rx Instructions: give through feeding tube fenofibrate nanocrystallized 145 mg tablet 145 mg PO QDAY Rx Instructions: give via feeding tube Eliquis 5 mg tablet 5 mg feeding tube BID acetaminophen 325 mg/10.15 mL Solution 650 mg G-tube Q6HR PRN (Reason: Pain 1-10 Or Fever > 100.4) Qty: 1015 0RF amoxicillin-pot clavulanate 875-125 mg tablet 1 tab PO BID Qty: 14 0RF tamsulosin 0.4 mg capsule 0.4 mg PO QDAY Held melatonin 3 mg Tablet 3 mg PO HS PRN (Reason: Insomnia) Hold Instructions: Resume on 08/11/24. Discontinued tramadol 50 mg tablet 50 mg feeding tube Q6H PRN (Reason: pain 6-9) doxycycline hyclate 100 mg tablet 100 mg PO BID Qty: 14 0RF quetiapine 25 mg Tablet 100 mg G-tube HS Referrals: Fabian Rashid MD [Primary Care Provider] - Patient/Caregiver Discharge Instructions Print Language: Macedonian Stand Alone Forms: [facility] Award Info., Patient Portal Info Letter Discharge Order Discharge Orders: Discharge (Routine); Ordered 08/06/24 Ordered By: Micheal Maynard Quality Discharge Quality Measures none
== END 2024-08-06 14:40 | disposition skilled nursing facility (03) ==
LOC: SERX 14:32 → SERHOLD 16:11 → S2NX 08-05 10:20 → S3SX 08-06 07:45 → S2NX 08-14 07:59 → SERHOLD 08-14 07:59 → S2NX 08-14 07:59 → S3SX 08-14 07:59
PROVIDERS: Student in an Organized Health Care Education/Training Program; Admitting Provider Student in an Organized Health Care Education/Training Program; Emergency Provider Family Medicine; PCP Hospitalist; Visit Provider Student in an Organized Health Care Education/Training Program
DX: J18.9 Pneumonia, unspecified organism (principal); G93.41 Metabolic encephalopathy; E11.65 Type 2 diabetes mellitus with hyperglycemia; E78.00 Pure hypercholesterolemia, unspecified; G47.00 Insomnia, unspecified; I10 Essential (primary) hypertension; I69.328 Other speech and language deficits following cerebral infarction; I69.351 Hemiplegia and hemiparesis following cerebral infarction affecting right dominant side; J44.0 Chronic obstructive pulmonary disease with (acute) lower respiratory infection; R13.10 Dysphagia, unspecified; R29.810 Facial weakness; R47.01 Aphasia; Z86.711 Personal history of pulmonary embolism; Z93.1 Gastrostomy status; Z01.810 Encounter for preprocedural cardiovascular examination
CPT/HCPCS: 51701; 36415; 70450; 70496; 70498; 70544; 71045; 80053; 80307; 81001; 83735; 83880; 84100; 84145; 84484; 85025; 85610; 85730; 87015; 87040; 87045; 87046; 87081; 87086; 87205; 87493; 87899; 93005; 93306; 96361; 96365; 96366; 96367; 97161; 99291; A4649; G0378; J0456; J0696; J7030; J7050; Q9967; A9270

== ENCOUNTER 2024-10-18 21:01 | Inpatient (IN) | payer OTHER, MEDICAID, MEDICARE, SELFPAY ==
[2024-10-18] VITALS (7 sets, daily range): BP systolic 86–116; BP diastolic 53–64; PULSE 75–112; RESP 19–24; TEMP 37.3–38.9; O2SAT 92–98; BMI 24.3
--- NOTE | 2024-10-18 21:16 | EKG_ITS ---
[facility] Test Date: 2024-10-18 Pat Name: ARELY PAL Department: Room: - Gender: Male [employer]er: : [id number] Requested By: Yayo Moses Order Number: [id number] Reading MD: Yayo Moses Measurements Intervals Hillman Rate: 101 P: 83 MD: 170 QRS: -35 QRSD: 90 T: 73 QT: 360 QTc: 469 Interpretive Statements SINUS TACHYCARDIA WITH OCCASIONAL ECTOPIC PREMATURE COMPLEXES Compared to ECG 08/04/2024 10:18:52 Sinus rhythm no longer present Ventricular premature complex(es) no longer present Myocardial infarct finding no longer present /store/S0/[id number].pdf
--- NOTE | 2024-10-18 21:17 | XR_ITS ---
Examination: AP chest single view EXAMINATION: AP chest single view TECHNIQUE: AP portable semiupright chest single view Date and time: October 18, 2004 2209 hours INDICATIONS: Sepsis today, shortness of breath FINDINGS: Normal heart size Mild vascular congestion. No lobar pneumonia Mild osteopenia IMPRESSION: No pneumonia identified
--- NOTE | 2024-10-18 21:18 | EDNOTE_ITS ---
<Statement entered by Tasha Vu MD - 10/30/24 01:04> As co-signing physician, I was present and available for consult prn. I concur with the plan and care as documented by the midlevel provider. 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 Patient was noted to be choking, and then later on noted to have fever tachycardia and low blood pressure. Patient is nonverbal. On my initial evaluation patient was noted to be tachycardic febrile and tachypneic. Sepsis alert was initiated right away Related Data Home Medications ?Medication ?Instructions ?Recorded ?Confirmed amlodipine 10 mg tablet 10 mg feeding tube QDAY 05/2410/19/24 apixaban 5 mg tablet (Eliquis) 5 mg feeding tube BID 0 06/17/24 10/19/24 aspirin 325 mg tablet 325 mg feeding tube QDAY 10/19/24 atorvastatin 80 mg tablet (Lipitor) 40 mg feeding tube QDAY 06/17/24 10/19/24 docusate sodium 100 mg tablet 100 mg PO QDAY 06/17/24 10/19/24 famotidine 20 mg tablet 20 mg feeding tube QDAY 05/2410/19/24 fenofibrate nanocrystallized 145 145 mg PO QDAY 10/19/24 mg tablet fluconazole 200 mg tablet 200 mg feeding tube QDAY 10/19/24 melatonin 3 mg tablet 3 mg PO HS PRN Insomnia 05/2408/04/24 Held on 08/05/24. Instructions: Resume on 08/11/24. oxcarbazepine 300 mg tablet 300 mg feeding tube BID 10/19/24 tamsulosin 0.4 mg capsule 0.4 mg PO QDAY 08/04/2407/21 doxazosin 1 mg tablet 1 mg PO QDAY 10/19/24 pregabalin 20 mg/mL oral solution 20 mg PO BID 10/19/24 Previous Rx's ?Medication ?Instructions ?Recorded acetaminophen 325 mg/10.15 mL oral 650 mg (20.3 mL) G- tube Q6HR PRN 06/20/24 solution Pain 1-10 Or Fever > 100.4 # 1,015 mL Allergies Allergy/AdvReac Type Severity Reaction Status Date / Time No Known Allergies Allergy Verified 10/18/24 21:11 Review of Systems Review of Systems Narrative Review of Systems: Review of system reviewed and within normal limits except mentioned in HPI ED Exam Narrative Physical exam: VITAL SIGNS: Reviewed. GENERAL APPEARANCE: Drowsy, opening eyes occasionally with verbal stimulation, does not follows commands, no acute distress,, febrile, GCS of 11 HEAD AND FACE: Non-traumatic. ENT: PERRL, pink conjunctivitis, eyelid no trauma, Mucous membrane moist. NECK: Supple, nontender, no nuchal rigidity. CHEST: No tenderness, no crepitus, no paradoxical movement, no retractions. LUNGS: Symmetric, + rales, no wheezing, no ronchi, no stridor, decreased breath sounds bilaterally. HEART: Regular rate, regular rhythm, no murmur, no gallops. ABDOMEN: Soft, positive bowel sounds, nondistended, no guarding, nontender, no rebound, no masses, PEG tube intact RECTAL: Deferred. GENITAL: Deferred. NEUROLOGICAL: Gross motor function intact sensory function intact, Appropriate for age. MUSCULOSKELETAL: low back nontender, full range of motion. EXTREMITIES: Nontender, right upper and lower extremity with weakness SKIN: Color pink, dry, no rash, no lacerations, no abrasions, no contusions. LYMPHATICS: Deferred. Course Quality Measures none Orders Category Date Time Status COVID-19 Screening Questionnaire NOW Care 10/18/24 22:41 Active Pharmaceutical Physician STAT Care 10/18/24 21:16 Active Continuous Pulse Oximetry STAT Care 10/18/24 21:16 Completed Decision to Admit X1 Care 10/18/24 22:40 Completed EKG (ED ONLY) *Do not use* NOW Care 10/18/24 21:16 Completed Huynh [Urinary Catheter] QS Care 10/18/24 21:50 Active In and Out Catheter X1PRN Care 10/18/24 21:16 Completed Insert IV NOW Care 10/18/24 21:16 Active NPO STAT Care 10/18/24 21:16 Active Strict Intake and Output Routine Care 10/18/24 21:[address] head/brain wo con Stat Exams 10/18/24 23:30 Completed EKG (ED Only) Stat Exams 10/18/24 21:16 Draft XR chest 1V SEPSIS PROTOCOL Stat Exams 10/18/24 21:17 Completed B-Type Natriuretic Peptide Stat Lab 10/18/24 21:21 Completed Blood Culture (Lab) Stat Lab 10/18/24 21:21 Received CBC Stat Lab 10/18/24 21:21 Completed Comprehensive Metabolic Panel Stat Lab 10/18/24 21:21 Completed LDH (Lactate Dehydrogenase) Stat Lab 10/18/24 21:21 Completed Lactate (Lactic Acid) Stat Lab 10/18/24 21:21 Completed Lipase Stat Lab 10/18/24 21:21 Completed Magnesium Stat Lab 10/18/24 21:21 Completed Partial Thromboplastin Time Stat Lab 10/18/24 21:21 Completed Phosphorous Stat Lab 10/18/24 21:21 Completed Procalcitonin Stat Lab 10/18/24 21:21 Completed Prothrombin Time with INR Stat Lab 10/18/24 21:21 Completed Troponin I Stat Lab 10/18/24 21:21 Completed Urinalysis Stat Lab 10/18/24 21:43 Completed Urine Culture Stat Lab 10/18/24 21:43 Received Acetaminophen Ivpb [Ofirmev Inj] Med 10/18/24 21:17 Active 1,000 mg in 100 ml IV Q6HR Azithromycin Inj [Zithromax Inj] 500 mg Med 10/18/24 22:36 Discontinued Sodium Chloride 0.9% 250 ml [Ns] 250 ml IV X1 Ringers Lactated 1000 ml [Lactated Ringers] 1,000 ml Med 10/18/24 21:16 Discontinued IV 999 mls/hr Ringers Lactated 1000 ml [Lactated Ringers] 1,000 ml Med 10/18/24 22:37 Discontinued IV 999 mls/hr cefTRIAXone/D5w 1gm IV premix [Rocephin/D5w 1gm IV Med 10/18/24 21:17 Discontinued premix] 1 gm in 50 ml IV X1 Oxygen Delivery NOW RT 10/18/24 21:16 Active Vital Signs Vital signs: Vital Signs Temperature 102.1 F H 10/18/24 21:11 Pulse Rate 80 10/18/24 21:11 Respiratory Rate 24 H 10/18/24 21:11 Blood Pressure 101/59 L 10/18/24 21:11 Pulse Oximetry (%) 92 L 10/18/24 21:11 Oxygen Delivery Method Nasal Cannula 10/18/24 21:11 Oxygen Flow Rate 4 10/18/24 21:11 Discharge Plan Plan Patient Disposition: Admit Acute Care w/in Hospital Discharge Disposition comment: Guarded Problem List Clinical Impression: Sepsis MDM Narrative MDM hospital course: 79-year-old male patient with significant history of past medical history of 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 Patient was noted to be choking, and then later on noted to have fever tachycardia and low blood pressure. Patient is nonverbal. On my initial evaluation patient was noted to be tachycardic febrile and tachypneic. Sepsis alert was initiated right away EKG showed sinus tachycardia, ventricular rate of 101 bpm, no ST segment elevation depression noted. CBC showed no leukocytosis, CMP chloride of 111 creatinine is normal Chest x-ray showed no pneumonia identified Patient received IV fluids x 2 L since patient blood pressure was noted on the lower 90s. Was also given ceftriaxone IV and Zithromax IV. Was also given Tylenol IV Urinalysis no UTI Care discussed with hospitalist admitted the patient Clinical Information Provided by EMS and spouse Medical Records Reviewed [facility] and EMS Chronic Illness/Social Conditions which may negatively complicate care or outcome(s)-explain: CVA/aphasic and long term/debilitated Add or document further as needed: Hypertension, CVA with right-sided weakness EKG EKG Interpretation narrative: See results [facility] Lab Interpretation Lab(s) interpretation(s): See results [facility] Medication Administration(s) Medication Administration History Acetaminophen (Acetaminophen Supp 650 Mg Supp) 650 mg LA Q6HR PRN PRN Reason: Fever > 100.4 Stop: 11/17/24 23:32 Albuterol/Ipratropium (Albuterol/Ipratropium (Duoneb) Rt Gisele 3 Ml Nebu) 3 ml INH Q6HRRT RE Stop: 11/18/24 00:59 Last Admin: 10/19/24 06:36 Dose: 3 ml Documented By: Admin: 10/19/24 00:13 Dose: 3 ml Documented By: ARTURO Apixaban (Apixaban 2.5 Mg Tablet) 5 mg GT BID RE Stop: 11/09/24 11:29 Fluconazole (Fluconazole 100 Mg Tablet) 200 mg PO QDAY RE Stop: 10/26/24 11:29 Acetaminophen (Ofirmev Inj) 1,000 mg in 100 mls @ 250 mls/hr IV Q6HR RE Stop: 10/19/24 12:23 Last Admin: 10/19/24 07:01 Dose: Not Given Documented By: EILEEN Non-Admin Reason: Patient Asleep Infusion: 10/19/24 01:29 Dose: Infused Documented By: Admin: 10/19/24 01:03 Dose: 250 mls/hr Documented By: Infusion: 10/18/24 21:54 Dose: Infused Documented By: Admin: 10/18/24 21:27 Dose: 250 mls/hr Documented By: EILEEN Ceftriaxone Sodium/Dextrose (Rocephin/D5w 1gm Iv Premix) 1 gm in 50 mls @ 100 mls/hr IV HS RE Stop: 10/26/24 20:59 Ondansetron HCl (Ondansetron Inj 2 Mg/Ml Inj 2 Ml) 4 mg IVP Q6H PRN; Protocol PRN Reason: NAUSEA OR VOMITING Stop: 11/17/24 23:32 Pantoprazole Sodium (Pantoprazole Inj 40 Mg Vial) 40 mg IVP QDAY RE Stop: 11/18/24 08:59 Discontinued Medications Apixaban (Apixaban 2.5 Mg Tablet) 5 mg PO BID RE Stop: 11/09/24 11:29 Fluconazole (Fluconazole 100 Mg Tablet) 200 mg PO QDAY RE Stop: 10/26/24 11:29 Lactated Ringer's (Lactated Ringers) 1,000 mls @ 999 mls/hr IV .Q1H1M ONE Stop: 10/18/24 22:16 Last Infusion: 10/18/24 22:37 Dose: Infused Documented By: Admin: 10/18/24 21:26 Dose: 999 mls/hr Documented By: EILEEN Ceftriaxone Sodium/Dextrose (Rocephin/D5w 1gm Iv Premix) 1 gm in 50 mls @ 100 mls/hr IV X1 ONE Stop: 10/18/24 21:46 Last Infusion: 10/18/24 22:04 Dose: Infused Documented By: Admin: 10/18/24 21:29 Dose: 100 mls/hr Documented By: CB Azithromycin 500 mg/ Sodium (Chloride) 250 mls @ 250 mls/hr IV X1 ONE Stop: 10/18/24 23:35 Last Infusion: 10/19/24 00:09 Dose: Infused Documented By: Admin: 10/18/24 22:58 Dose: 250 mls/hr Documented By: DT Lactated Ringer's (Lactated Ringers) 1,000 mls @ 999 mls/hr IV .Q1H1M ONE Stop: 10/18/24 23:37 Last Infusion: 10/19/24 00:09 Dose: Infused Documented By: Admin: 10/18/24 22:56 Dose: 999 mls/hr Documented By: DT Ampicillin Sodium/Sulbactam (Sodium 3 gm/ Sodium Chloride) 100 mls @ 200 mls/hr IV Q6HR RE Stop: 10/26/24 00:00 Ampicillin Sodium/Sulbactam (Sodium 3 gm/ Sodium Chloride) 100 mls @ 200 mls/hr IV X1 ONE Stop: 10/19/24 00:14 Last Infusion: 10/19/24 00:47 Dose: Infused Documented By: Admin: 10/18/24 23:54 Dose: 200 mls/hr Documented By: AM Lactated Ringer's (Lactated Ringers) 500 mls @ 999 mls/hr IV .Q31M ONE Stop: 10/19/24 01:23 Last Infusion: 10/19/24 02:06 Dose: Infused Documented By: Admin: 10/19/24 01:05 Dose: 999 mls/hr Documented By: EILEEN Piperacillin Sod/Tazobactam (Sod 4.5 gm/ Sodium Chloride) 100 mls @ 200 mls/hr IV Q8HR RE Stop: 10/26/24 05:59 Piperacillin Sod/Tazobactam (Sod 4.5 gm/ Sodium Chloride) 100 mls @ 200 mls/hr IV X1 ONE Stop: 10/19/24 02:59 Last Infusion: 10/19/24 03:30 Dose: Infused Documented By: Admin: 10/19/24 02:49 Dose: 200 mls/hr Documented By: EILEEN Lactated Ringer's (Lactated Ringers) 500 mls @ 999 mls/hr IV .Q31M ONE Stop: 10/19/24 03:09 Last Infusion: 10/19/24 03:31 Dose: Infused Documented By: Admin: 10/19/24 02:48 Dose: 999 mls/hr Documented By: EILEEN Lactated Ringer's (Lactated Ringers) 500 mls @ 500 mls/hr IV .Q1H ONE Stop: 10/19/24 05:06 Last Infusion: 10/19/24 06:07 Dose: Infused Documented By: Admin: 10/19/24 04:23 Dose: 500 mls/hr Documented By: EILEEN Midodrine (Midodrine 2.5 Mg Tablet) 10 mg GT X1 ONE Stop: 10/19/24 02:30 Last Admin: 10/19/24 03:30 Dose: Not Given Documented By: EILEEN Non-Admin Reason: Duplicate Medication on eMAR Midodrine (Midodrine 5 Mg Tablet) 10 mg GT X1 ONE Stop: 10/19/24 02:41 Last Admin: 10/19/24 02:45 Dose: 10 mg Documented By: EILEEN Midodrine (Midodrine 5 Mg Tablet) Confirm Administered Dose 10 mg .ROUTE .STK- MED ONE Stop: 10/19/24 02:38 Last Admin: 10/19/24 02:44 Dose: Not Given Documented By: EILEEN Non-Admin Reason: Override Medication Diagnosis Differential diagnosis: Sepsis, pneumonia, UTI, aspiration pneumonia Most likely dx, and/or detailed dx discussion: Sepsis Dispositon Disposition: Admit
[2024-10-18] MEDS: RINGERS LACTATED 1000 ML 1,000 ML 999 ML IV ×2 (21:26→22:56)
[2024-10-18] MEDS: ACETAMINOPHEN IVPB 1,000 MG/100 ML VIAL 250 MG IV (21:27)
[2024-10-18] MEDS: cefTRIAXone/D5w 1gm IV premix 1 GM/50 ML BAG IV (21:29)
[2024-10-18 21:37] LABS: Basophils % (Auto) 1 % (0-2.5); Eosinophils % (Auto) 0 % (0-10); Hematocrit 33.2 % (41.0-53.0); Hemoglobin 11.8 g/dL (13.5-16.0); Immature Granulocytes % (Auto) 1 % (0-0); Immature Granulocytes Auto 0.04 Thou/mm3 (0.00-0.00); Lymphocytes # (Auto) 0.9 Thou/mm3 (1.0-4.8); Lymphocytes % (Auto) 12 % (10-50); Mean Corpuscular HGB Conc 35.5 g/dl (31.0-37.0); Mean Corpuscular Hemoglobin 30.9 pg (25.0-35.0); Mean Corpuscular Volume 87 fL (80-100); Monocytes # (Auto) 0.5 Thou/mm3 (0.0-0.8); Monocytes % (Auto) 7 % (0-12); Neutrophils # (Auto) 6.1 Thou/mm3 (1.8-7.7); Neutrophils % (Auto) 80 % (37-80); Nucleated Red Blood Cell % 0 /100 WBC (0); Platelet Count 259 Thou/mm3 (140-440); RDW Standard Deviation 47.4 fL (35.1-43.9); Red Blood Count 3.82 Miln/mm3 (4.50-5.90); White Blood Count 7.7 Thou/mm3 (3.8-10.6)
[2024-10-18 21:50] LABS: INR 1.2 (0.9-1.3); Partial Thromboplastin Time 36.1 Seconds (22.0-36.0); Prothrombin Time 13.3 Seconds (9.0-12.2)
[2024-10-18 22:03] LABS: Troponin I < 0.020 ng/mL (0.0-0.045)
[2024-10-18 22:08] LABS: B-Type Natriuretic Peptide 93 pg/mL (0-100)
[2024-10-18 22:15] LABS: Alanine Aminotransferase 17 U/L (10-49); Albumin, Serum 2.9 gm/dL (3.4-4.8); Albumin/Globulin Ratio 1.1 (1.2-2.2); Alkaline Phosphatase 41 U/L (46-116); Anion Gap 11 (7-16); Aspartate Amino Transferase 25 U/L (0-34); BUN/Creatinine Ratio 38 Ratio (12-20); Bilirubin,Total 0.4 mg/dL (0.3-1.2); Blood Urea Nitrogen 34 mg/dL (9-23); Calcium 8.1 mg/dL (8.3-10.6); Carbon Dioxide 22.8 mMol/L (20.0-31.0); Chloride 111 mMol/L (98-107); Creatinine (Component) 0.9 mg/dL (0.6-1.3); Estimated Creatinine Clearance 65.4 mL/min (>60); Globulin 2.7 gm/dL (2.3-3.5); Glucose 165 mg/dL (74-106); LDH (Lactate Dehydrogenase) 192 U/L (120-246); Lipase 36 U/L (12-53); Magnesium 2.1 mg/dL (1.6-2.6); Osmolality,Calculated 300 (275-295); Phosphorous 2.2 mg/dL (2.4-5.1); Potassium 4.1 mMol/L (3.4-5.1); Sodium 145 mMol/L (136-145); Total Protein 5.6 gm/dL (5.7-8.2); eGFR > 60 See Note
[2024-10-18 22:39] LABS: Collection Type, Urine Clean Catch
[2024-10-18 22:52] LABS: Bilirubin,Urine Negative (Negative); Blood,Urine Trace (Negative); Clarity,Urine Clear (Clear/Hazy); Color,Urine Yellow (Lt Yel-Yel); Glucose, Urine Negative (Negative); Hyaline Casts,Urine < 1 /hpf (0-1); Ketones,Urine Negative (Negative); Leukocyte Esterase,Urine Negative (Negative); Nitrite,Urine Negative (Negative); Protein,Urine Trace (Neg - Trace); RBC,Urine 22 /hpf (0-3); Specific Gravity,Urine 1.032 (1.001-1.035); Squamous Epithelial Cell,Urine 1 /hpf (0-5); WBC,Urine 1 /hpf (0-5)
[2024-10-18] MEDS: AZITHROMYCIN INJ 500 MG in SODIUM CHLORIDE 0.9% 250 ML 250 ML 250 MG IV (22:58)
--- NOTE | 2024-10-18 23:30 | XR_ITS ---
Examination: CT brain head without contrast. 2-D sagittal coronal reconstructions Date and time of exam:October 19, 2024 0118 hours COMPARISON: August 04, 2024: Altered mental status today CTDI: vol (mGy):67 DLP: (mGycm):1402 Technique: Multiple CT axial sections of the brain have been obtained, 5 mm slice thickness. Contrast has not been administered. 2-D sagittal, coronal reconstructions have been obtained Low dose protocols were performed. One or more of the following dose reduction techniques were used; automated exposure control, adjustment of the mA and/or KV according to patient size, use of iterative reconstruction technique. 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
--- NOTE | 2024-10-18 23:42 | PD.RESHP ---
Documentation for date of: 10/18/24 [facility] History of Present Illness History of present illness: Patient is altered and is unable to provide history. Most of the history is taken from at the bedside and from chart review. 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 presented to the hospital with chief complaints of fever, shortness of breath and altered mental status since 2 days. Per patient's , when she visited yesterday patient is having fever, difficulty in breathing with a lot of phlegm but is able to have conversation with her and able to recognize her. Today she got a call from nursing facility that patient is having fever and shortness of breath for which patient was started on oxygen in the facility and was being transferred to the hospital for further evaluation. ED course: - Vitals at the time of admission were significant for blood pressure 101/59 mmHg, respiratory rate 24/min, temperature 102.1 ?F, SpO2 92% with 4 L oxygen - Labs are significant for BUN 34 - Chest x-ray did not show any significant infiltrates - EKG showed sinus tachycardia with occasional ectopics. CT head did not show any evidence of hemorrhage - Patient is admitted to the hospital for sepsis and acute hypoxic respiratory failure secondary to aspiration pneumonia Past medical history: CVA, PE, cocci, GERD, hypertension, hyperlipidemia Past surgical history: Not significant Social history: Denies smoking, alcohol, other illicit drug abuse Allergies: NKDA Review of Systems Review of Systems ROS Unobtainable: unobtainable due to mental status Exam Vital Signs Temp Pulse Resp BP Pulse Ox O2 Del Method O2 Flow Rate 99.2 F 75 24 H 116/64 95 BiPAP 15 10/18/24 22:35 10/18/24 23:31 10/18/24 23:31 10/18/24 23:31 10/18/24 23:31 10/18/24 23:31 10/18/24 22:35 Narrative Exam General: Not responding to verbal and painful stimuli. Comatose HEENT: Normocephalic, atraumatic, mucous membranes moist. Heart: Regular rate and rhythm, no murmurs. Lungs: Bilateral diffuse coarse crackles heard Abdomen: Soft, nondistended, nontender, positive bowel sounds. ?No guarding or rebound tenderness. PEG tube noted Neurologic: Not responding to verbal and painful stimuli Extremities: No edema. Skin: No rash or ecchymoses. Results: Labs 10/19/24 02:30 10/19/24 02:30 Labs: Short CBC 10/18/24 Range/Units 21:21 WBC 7.7 (3.8-10.6) Thou/mm3 Hgb 11.8 L (13.5-16.0) g/dL Hct 33.2 L (41.0-53.0) % Plt Count 259 (140-440) Thou/mm3 BMP 10/18/24 21:21 Sodium 145 Potassium 4.1 Chloride 111 H Carbon Dioxide 22.8 BUN 34 H Creatinine 0.9 Glucose 165 H Calcium 8.1 L Cardiac Enzymes 10/18/24 Range/Units 21:21 Troponin I < 0.020 (0.0-0.045) ng/mL Liver Function 10/18/24 Range/Units 21:21 Total Bilirubin 0.4 (0.3-1.2) mg/dL AST 25 (0-34) U/L ALT 17 (10-49) U/L Alkaline Phosphatase 41 L (46-116) U/L Albumin 2.9 L (3.4-4.8) gm/dL Urine 10/18/24 Range/Units 21:43 Urine Color Yellow (Lt Yel-Yel) Urine Clarity Clear (Clear/Hazy) Urine pH 6.0 (5.0-7.0) Ur Specific [place] 1.032 (1.001-1.035) Urine Protein Trace (Neg - Trace) Urine Glucose (UA) Negative (Negative) Quality Measures Quality Measures VTE prophylaxis Advance care planning discussed with:: spouse and child Medications Home Medications and Allergies Home Medications ?Medication ?Instructions ?Recorded ?Confirmed ?Type amlodipine 10 mg tablet 10 mg feeding tube QDAY 06/17/24 08/04/24 History apixaban 5 mg tablet (Eliquis) 5 mg feeding tube BID 06/17/24 08/04/24 History aspirin 325 mg tablet 325 mg feeding tube QDAY 06/17/24 08/04/24 History atorvastatin 80 mg tablet (Lipitor) 40 mg feeding tube QDAY 06/17/24 08/04/24 History docusate sodium 100 mg tablet 100 mg PO QDAY 06/17/24 08/04/24 History famotidine 20 mg tablet 20 mg feeding tube QDAY 06/17/24 08/04/24 History fenofibrate nanocrystallized 145 145 mg PO QDAY 06/17/24 08/04/24 History mg tablet fluconazole 200 mg tablet 200 mg feeding tube QDAY 06/17/24 08/04/24 History melatonin 3 mg tablet 3 mg PO HS PRN Insomnia 06/17/24 08/04/24 History Held on 08/05/24. Instructions: Resume on 08/11/24. oxcarbazepine 300 mg tablet 300 mg feeding tube BID 06/17/24 08/04/24 History tamsulosin 0.4 mg capsule 0.4 mg PO QDAY 08/04/24 08/04/24 History Allergies Allergy/AdvReac Type Severity Reaction Status Date / Time No Known Allergies Allergy Verified 10/18/24 21:11 Visit Medications Acetaminophen (Acetaminophen Supp 650 Mg Supp) 650 mg OR Q6HR PRN PRN Reason: Fever > 100.4 Stop: 11/17/24 23:32 Albuterol/Ipratropium (Albuterol/Ipratropium (Duoneb) Rt Gisele 3 Ml Nebu) 3 ml INH Q6HRRT RE Stop: 11/18/24 00:59 Acetaminophen (Ofirmev Inj) 1,000 mg in 100 mls @ 250 mls/hr IV Q6HR RE Stop: 10/19/24 12:23 Last Infusion: 10/18/24 21:54 Dose: Infused Ampicillin Sodium/Sulbactam (Sodium 3 gm/ Sodium Chloride) 100 mls @ 200 mls/hr IV Q6HR RE Stop: 10/26/24 00:00 Ampicillin Sodium/Sulbactam (Sodium 3 gm/ Sodium Chloride) 100 mls @ 200 mls/hr IV X1 ONE Stop: 10/19/24 00:14 Ondansetron HCl (Ondansetron Inj 2 Mg/Ml Inj 2 Ml) 4 mg IVP Q6H PRN; Protocol PRN Reason: NAUSEA OR VOMITING Stop: 11/17/24 23:32 Pantoprazole Sodium (Pantoprazole Inj 40 Mg Vial) 40 mg IVP QDAY RE Stop: 11/18/24 08:59 Discontinued Medications Lactated Ringer's (Lactated Ringers) 1,000 mls @ 999 mls/hr IV .Q1H1M ONE Stop: 10/18/24 22:16 Last Infusion: 10/18/24 22:37 Dose: Infused Ceftriaxone Sodium/Dextrose (Rocephin/D5w 1gm Iv Premix) 1 gm in 50 mls @ 100 mls/hr IV X1 ONE Stop: 10/18/24 21:46 Last Infusion: 10/18/24 22:04 Dose: Infused Azithromycin 500 mg/ Sodium (Chloride) 250 mls @ 250 mls/hr IV X1 ONE Stop: 10/18/24 23:35 Last Admin: 10/18/24 22:58 Dose: 250 mls/hr Lactated Ringer's (Lactated Ringers) 1,000 mls @ 999 mls/hr IV .Q1H1M ONE Stop: 10/18/24 23:37 Last Admin: 10/18/24 22:56 Dose: 999 mls/hr Assessment & Plan Plan A 79-year-old with significant past medical history 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 presented to the hospital with chief complaints of fever, shortness of breath and altered mental status since 2 days and admitted in the hospital for sepsis and acute hypoxic respiratory failure secondary to aspiration pneumonia # Acute encephalopathy # Sepsis # 2/2 Acute hypoxic respiratory failure # Secondary to aspiration pneumonia # Underlying CVA - hemiplegia and dysphasia - Brought to the hospital with chief complaints of fever, altered mental status and shortness of breath - Patient found to have short of breath, tachypnea for which patient was started on oxygen at his facility and was brought to our hospital for further management - At baseline patient is mostly bedbound but able to make a conversation - On examination, patient noted to have a bilateral coarse crackles - Vitals at the time of admission showed temperature 102.1 ?F, respiratory rate 24/min, SpO2 92% with 4 L oxygen that fits into SIRS criteria plus aspiration pneumonia as source of infection -sepsis - Labs showed mildly elevated BUN chest x-ray did not show any significant infiltrates - Sepsis alert was called and patient was given fluid bolus per sepsis protocol Plan - Blood culture and urine culture was ordered - ABG ordered - Started on Unasyn in view of suspicion of aspiration pneumonia [10/19- - Head end of bed elevation to 30 degrees - Chest physiotherapy - Repositioning regularly - Huynh catheter was placed in view of altered sensorium, discontinue later as per patient's clinical condition - Will hold G-tube feedings for now - Referral to dietitian was done - CT head was ordered which did not show any evidence of hemorrhage or stroke, waiting for official read - Patient was found to be mildly hypotensive, MAP around 60 for which patient was given extra 500 mL of LR bolus after admission, will reevaluate blood pressure and treat as needed # History of hypertension - Patient is using blood pressure medications at home - Blood pressure found to be on the lower side at the time of admission, will monitor blood pressures for now - Will hold anti hypertensives for now # History of PE # history of cocci - Unsure if patient is taking the Eliquis and fluconazole - Home medication reconciliation is ordered, resume medications once it is done # History of CVA # History of hyperlipidemia - Med rec is ordered, reconcile medications Hospital Maintenance: Dispo: Tele DVT ppx: SCD GI ppx: Pantoprazole Diet: NPO IV lines: Peripheral Code status: No chest compressions, intubation is okay Patient plan of care was discussed with the attending physician, Dr. Anderson Salazar, PGY1 Attending Provider Attestation/Addendum I have examined the patient, reviewed labs and imaging findings, discussed the case with the resident(s), and reviewed entered orders. I agree with the plan of care as outlined in this note, with these additional summaries/recommendations: After examination of the patient and review of the clinical data, I feel that this patient needs admission to the hospital for further treatment and evaluation. Patient is a 79-year-old male with a history of CVA with right-sided hemiplegia, aphasia, dysphagia status post PEG, chronic encephalopathy, PE on Eliquis, cocci, GERD, coccidioidomycosis, and BPH who presents to [facility] emergency department on 10/19/2024 with chief complaint of shortness of breath and altered mental status. Patient seen at bedside. No history can be obtained from patient at this time. He likely has acute on chronic encephalopathy. Patient withdraws from painful stimuli although it does not appear that patient speaks at baseline given his aphasia. Acute encephalopathy most likely secondary to hypoxia/aspiration pneumonitis/pneumonia. We will treat underlying causes and monitor for improvement. CT head on admission showed no gross evidence of intracranial hemorrhage, mass effect or midline shift but did show periventricular chronic small vessel ischemia and volume loss. Continue high flow nasal cannula for acute hypoxic respiratory failure. Start IV Zosyn and follow-up blood cultures. Tmax 102.1 Fahrenheit. Tylenol as needed for fever. Chest x-ray on admission did not show pneumonia or pneumonitis although patient was brought straight to the ER after aspiration event and we will repeat chest x-ray in AM. We will hold tube feeds for now. Consult dietary and will resume tube feeds/free water flushes when able. Patient does have history of hypertension and appears to take doxazosin and Norvasc at [facility]. We will hold these medicines for now as patient has soft blood pressure with mean arterial pressure bouncing between 60-70. Patient received 2.5 L fluid bolus and we will give 1 dose of midodrine as lactic acid level is within normal limits and low suspicion for shock at this time. Patient has history of pulmonary embolus and appears to still be taking Eliquis, awaiting medication reconciliation. Continue home fluconazole for history of coccidioidomycosis. Mild hypophosphatemia present and replacement given. Repeat level in AM. Overall prognosis is guarded. Please see residents note for additional details and management. Dr. Anderson MD
[2024-10-18] MEDS: AMPICILLIN/SULBAC INJ 3 GM in SODIUM CHLORIDE 0.9% (POP) 100 ML IV (23:54)
[2024-10-19] VITALS (25 sets, daily range): BP systolic 84–116; BP diastolic 50–59; PULSE 61–88; RESP 15–95; TEMP 36.2–37.8; O2SAT 90–100; BMI 24.2; BMI 24.5
[2024-10-19] MEDS: ALBUTEROL/IPRATROPIUM (Duoneb) RT SOL 3 ML NEBU INH ×4 (00:13→19:46)
[2024-10-19] MEDS: ACETAMINOPHEN IVPB 1,000 MG/100 ML VIAL 250 MG IV (01:03)
[2024-10-19] MEDS: RINGERS LACTATED 500 ML 500 ML 999 ML IV ×2 (01:05→02:48)
--- NOTE | 2024-10-19 01:51 | PC.NURSE ---
MD Salazar wants to be called if the MAP falls below 65
[2024-10-19 01:54] LABS: Allen Test Performed/OK; Base Excess 3 (-3-3); HCO3 27 mEq/L (20-26); Inspired Oxygen, FIO2 21 %; O2 Saturation 90 % (91-98); PCO2 43 mmHg (32.0-48.0); Puncture Site Left Radial; pH, Arterial 7.41 (7.35-7.45)
[2024-10-19 01:55] LABS: PO2 57 mmHg (83-108)
--- NOTE | 2024-10-19 02:20 | PRELIM_ITS ---
CT scan of the head without intravenous contrast (axial sections with sagittal and coronal reformats) October 19, 2024 0118 hours Clinical history: Altered mental status Comparison: No prior study is available for comparison. Findings: The evaluation is limited due to motion artifact. There is no gross evidence of intracranial hemorrhage, mass effect or midline shift. There are periventricular white matter hypodensities, compatible with chronic small vessel ischemia. There is mild volume loss. There is atheromatous calcification of the intracranial arteries. The calvarium is unremarkable. The mastoid air cells and the visualized paranasal sinuses are clear. Impression: No gross evidence of intracranial hemorrhage, mass effect or midline shift (slightly motion limited evaluation). Periventricular chronic small vessel ischemia and volume loss. Report Electronically Signed By: David Bustillo 10/19/2024 2:19:12 AM [EST]
[2024-10-19 02:45] LABS: Basophils % (Auto) 0 % (0-2.5); Eosinophils % (Auto) 0 % (0-10); Hematocrit 27.4 % (41.0-53.0); Hemoglobin 9.7 g/dL (13.5-16.0); Immature Granulocytes % (Auto) 0 % (0-0); Immature Granulocytes Auto 0.02 Thou/mm3 (0.00-0.00); Lymphocytes # (Auto) 1.2 Thou/mm3 (1.0-4.8); Lymphocytes % (Auto) 20 % (10-50); Mean Corpuscular HGB Conc 35.4 g/dl (31.0-37.0); Mean Corpuscular Hemoglobin 30.9 pg (25.0-35.0); Mean Corpuscular Volume 87 fL (80-100); Monocytes # (Auto) 0.6 Thou/mm3 (0.0-0.8); Monocytes % (Auto) 9 % (0-12); Neutrophils # (Auto) 4.3 Thou/mm3 (1.8-7.7); Neutrophils % (Auto) 70 % (37-80); Nucleated Red Blood Cell % 0 /100 WBC (0); Platelet Count 211 Thou/mm3 (140-440); RDW Standard Deviation 47.9 fL (35.1-43.9); Red Blood Count 3.14 Miln/mm3 (4.50-5.90); White Blood Count 6.2 Thou/mm3 (3.8-10.6)
[2024-10-19] MEDS: MIDODRINE 5 MG TABLET 10 MG GT (02:45)
--- NOTE | 2024-10-19 02:45 | PC.NURSE ---
Dr. Barron at bedside due to patients blood pressure 86/51. Per Doctor give a 500 bolus of Lactic Ringers first and then repeat blood pressure.
[2024-10-19] MEDS: PIPER/TAZO INJ 4.5 GM in SODIUM CHLORIDE 0.9% (POP) 100 ML IV (02:49)
[2024-10-19 02:58] LABS: Lactate (Lactic Acid) 1.9 mMol/L (0.4-2.0)
[2024-10-19 03:08] LABS: Alanine Aminotransferase 14 U/L (10-49); Albumin, Serum 2.4 gm/dL (3.4-4.8); Alkaline Phosphatase 34 U/L (46-116); Anion Gap 7 (7-16); Aspartate Amino Transferase 17 U/L (0-34); BUN/Creatinine Ratio 45 Ratio (12-20); Bilirubin,Total 0.3 mg/dL (0.3-1.2); Blood Urea Nitrogen 36 mg/dL (9-23); Calcium 7.6 mg/dL (8.3-10.6); Calcium (Corrected) 8.9 mg/dL (8.5-10.1); Carbon Dioxide 27.2 mMol/L (20.0-31.0); Chloride 111 mMol/L (98-107); Creatinine (Component) 0.8 mg/dL (0.6-1.3); Estimated Creatinine Clearance 73.6 mL/min (>60); Globulin 2.3 gm/dL (2.3-3.5); Glucose 131 mg/dL (74-106); Osmolality,Calculated 299 (275-295); Sodium 145 mMol/L (136-145); Thyroid Stimulating Hormone 0.94 uIU/mL (0.55-4.78); Total Protein 4.7 gm/dL (5.7-8.2); eGFR > 60 See Note
[2024-10-19] MEDS: RINGERS LACTATED 1000 ML 500 ML IV (04:23)
[2024-10-19 06:28] LABS: COVID-19 Antigen (In-House) Negative (Negative)
--- NOTE | 2024-10-19 11:27 | PD.RESPRO ---
Documentation for date of: 10/19/24 Subjective Subjective Interval history: Patient examined at bedside today. No acute overnight events. Patient reports he is doing okay. He is reporting some pain around his right side of his body. Denies any other pain elsewhere. No other complaints at this time. Exam Vital Signs Temp Pulse Resp BP Pulse Ox O2 Del Method O2 Flow Rate 99.6 F 78 20 104/57 L 94 L Oxy Mask 10 10/19/24 10:22 10/19/24 10:10/19/24 10:10/19/24 10:10/19/24 10:10/19/24 10:10/19/24 10:22 FiO2 10 10/19/24 06:39 Narrative Exam General: AAOx2, NAD, bedbound, elderly male, HEENT: Dry mucous membranes, conjunctiva clear, PERRLA, Cardiovascular: S1, S2, radial pulses +2 bilat, RRR Pulmonary: Crackles auscultated in bilateral lung loja, on OxyMask GI: No tenderness to light or deep palpitation, no guarding, rigidity, rebound tenderness or distension, G-tube present, bowel sounds present Extremities: Trace edema in lower extremities dorsalis pedis pulses +2 bilaterally, some swelling in the R hand Neuro: AAOx2, right-sided hemiplegia Objective Labs 10/20/24 05:15 10/20/24 05:15 Labs: Laboratory Results - last 24 hr 10/18/24 10/18/24 10/19/24 21:21 21:43 01:50 WBC 7.7 RBC 3.82 L Hgb 11.8 L Hct 33.2 L MCV 87 MCH 30.9 MCHC 35.5 RDW Std Deviation 47.4 H Plt Count 259 Neut % (Auto) 80 Lymph % (Auto) 12 Braxton % (Auto) 7 Eos % (Auto) 0 Baso % (Auto) 1 Neut # (Auto) 6.1 Lymph # (Auto) 0.9 L Braxton # (Auto) 0.5 Eos # (Auto) 0.0 Baso # (Auto) 0.0 Immature Gran # (Auto) 0.04 H Absolute Nucleated RBC 0.00 Immature Gran % 1 H Nucleated RBC % 0 PT 13.3 H INR 1.2 APTT 36.1 H Puncture Site Left Radial ABG pH 7.41 ABG pCO2 43 ABG pO2 57 L* ABG HCO3 27 H ABG O2 Saturation 90 L ABG Base Excess 3 FiO2 21 Sodium 145 Potassium 4.1 Chloride 111 H Carbon Dioxide 22.8 Anion Gap 11 BUN 34 H Creatinine 0.9 Estim Creat Clear Calc 65.4 eGFR > 60 BUN/Creatinine Ratio 38 H Glucose 165 H Calculated Osmolality 300 H Lactic Acid 2.0 Calcium 8.1 L Corrected Calcium 9.0 Phosphorus 2.2 L Magnesium 2.1 Total Bilirubin 0.4 AST 25 ALT 17 Alkaline Phosphatase 41 L Lactate Dehydrogenase 192 Troponin I < 0.020 B-Natriuretic Peptide 93 Total Protein 5.6 L Albumin 2.9 L Globulin 2.7 Albumin/Globulin Ratio 1.1 L Lipase 36 Procalcitonin 0.40 TSH Ur Collection Type Clean Catch Urine Color Yellow Urine Clarity Clear Urine pH 6.0 Ur Specific [place] 1.032 Urine Protein Trace Urine Glucose (UA) Negative Urine Ketones Negative Urine Blood Trace Urine Nitrite Negative Urine Bilirubin Negative Urine Urobilinogen (Auto) 2.0 Ur Leukocyte Esterase Negative Urine RBC 22 H Urine WBC 1 Ur Squamous Epith Cells 1 Urine Bacteria None Hyaline Casts < 1 SARS-CoV-2 Ag (Rapid) 10/19/24 10/19/24 10/19/24 02:30 02:55 05:02 WBC 6.2 RBC 3.14 L Hgb 9.7 L D Hct 27.4 L MCV 87 MCH 30.9 MCHC 35.4 RDW Std Deviation 47.9 H Plt Count 211 D Neut % (Auto) 70 Lymph % (Auto) 20 Braxton % (Auto) 9 Eos % (Auto) 0 Baso % (Auto) 0 Neut # (Auto) 4.3 Lymph # (Auto) 1.2 Braxton # (Auto) 0.6 Eos # (Auto) 0.0 Baso # (Auto) 0.0 Immature Gran # (Auto) 0.02 H Absolute Nucleated RBC 0.00 Immature Gran % 0 Nucleated RBC % 0 PT INR APTT Puncture Site ABG pH ABG pCO2 ABG pO2 ABG HCO3 ABG O2 Saturation ABG Base Excess FiO2 Sodium 145 Potassium 4.0 Chloride 111 H Carbon Dioxide 27.2 Anion Gap 7 BUN 36 H Creatinine 0.8 Estim Creat Clear Calc 73.6 eGFR > 60 BUN/Creatinine Ratio 45 H Glucose 131 H Calculated Osmolality 299 H Lactic Acid 1.9 Calcium 7.6 L Corrected Calcium 8.9 Phosphorus Magnesium Total Bilirubin 0.3 AST 17 ALT 14 Alkaline Phosphatase 34 L Lactate Dehydrogenase Troponin I B-Natriuretic Peptide Total Protein 4.7 L Albumin 2.4 L D Globulin 2.3 Albumin/Globulin Ratio 1.0 L Lipase Procalcitonin TSH 0.94 Ur Collection Type Urine Color Urine Clarity Urine pH Ur Specific [place] Urine Protein Urine Glucose (UA) Urine Ketones Urine Blood Urine Nitrite Urine Bilirubin Urine Urobilinogen (Auto) Ur Leukocyte Esterase Urine RBC Urine WBC Ur Squamous Epith Cells Urine Bacteria Hyaline Casts SARS-CoV-2 Ag (Rapid) Negative ABG Interpretation ABG results: 10/19/24 01:50 ABG pH 7.41 ABG pCO2 43 ABG pO2 57 L* ABG HCO3 27 H ABG O2 Saturation 90 L ABG Base Excess 3 Quality Measures Quality Measures none Advance care planning discussed with:: patient Assessment & Plan Assessment Current Active Medications: Generic Name Dose Route Start Last Admin Trade Name Freq PRN Reason Stop Dose Admin Acetaminophen 650 mg 10/18/24 23:33 Acetaminophen Supp 650 Mg Supp UT 11/17/24 23:32 Q6HR PRN Fever > 100.4 Albuterol/Ipratropium 3 ml 10/19/24 01:00 10/19/24 06:36 Albuterol/Ipratropium (Duoneb) Rt Gisele 3 Ml Nebu INH 11/18/24 00:59 3 ml Q6HRRT RE Administration Apixaban 5 mg 10/19/24 11:30 Apixaban 2.5 Mg Tablet GT 11/09/24 11:29 BID RE Fluconazole 200 mg 10/19/24 11:30 Fluconazole 100 Mg Tablet PO 10/26/24 11:29 QDAY RE Acetaminophen 1,000 mg in 100 mls @ 250 mls/hr 10/18/24 21:17 10/19/24 07:01 Ofirmev Inj IV 10/19/24 12:23 Not Given Q6HR RE Ceftriaxone Sodium/Dextrose 1 gm in 50 mls @ 100 mls/hr 10/19/24 21:00 Rocephin/D5w 1gm Iv Premix IV 10/26/24 20:59 HS RE Ondansetron HCl 4 mg 10/18/24 23:33 Ondansetron Inj 2 Mg/Ml Inj 2 Ml IVP 11/17/24 23:32 Q6H PRN NAUSEA OR VOMITING Protocol Pantoprazole Sodium 40 mg 10/19/24 09:00 Pantoprazole Inj 40 Mg Vial IVP 11/18/24 08:59 QDAY RE Plan Assessment Mikal is a 79-year-old with significant past medical history of 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 #Acute hypoxic respiratory failure #Acute encephalopathy# Sepsis #Secondary to aspiration pneumonia #Acute encephalopathy #Underlying CVA - hemiplegia and dysphasia Head CT unremarkable Patient is poor historian baseline Given 3 L of fluid in the ED Urinalysis unremarkable Patient is at high risk for aspiration due to chronic lesion Chest x-ray read does not show pneumonia, however images look like possible aspiration pneumonia in right lower lobe Plan: ? Follow-up blood cultures ? Speech therapy ? Rocephin 1 g IV daily (10/18- ? Follow-up MRSA screen ? Chest physio ? Aspiration precautions ? HOB 30 degrees #History of PE There has been some documentation that patient has a history of PE and has Eliquis 5 mg twice daily Unable to find imaging that shows this Chest CT in July shows pulmonary hypertension, however no PE Since this is a home medicine, we will continue this medicine Plan: ? 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 Follow-up cocci serologies ? Continue Diflucan 200 mg every day at #Hypertension #Hyperlipidemia Chronic LDL 55 in 05/2024 Plan: ? Holding blood pressure medicines as blood pressures soft at this point ? Resumed home Lipitor 40 mg at bedtime #History of CVA #R side hemiplegia #G-tube Patient seems to take aspirin 325, this is a high dose as usually maintenance would be 81 We will continue this dose at this time We will resume tube feeds Plan: ? Referral to registered dietitian ? Aspirin 325 daily #Hypophosphatemia Phosphorus 2.2 Plan ? Neutra-Phos via G-tube #Normocytic anemia Hemoglobin 9.7 Will hold off on iron studies at this time Plan: ? Trend CBC #Health Maintenance Disposition: Telemetry DVT prophylaxis: Eliquis GI prophylaxis: Protonix Diet: Pending RD recommendations CODE STATUS: No chest compressions Patient seen and care discussed with my attending physician, Dr. Candelario Mata, PGY-1 Attending Provider Attestation/Addendum I reviewed labs, imaging, EKG, home medications and prior available records. Face to face evaluation was performed by me. I have personally examined the patient and discussed assessment and plan with the IM team. I reviewed the resident note and agree with the plan with exceptions as below. Acute hypoxic respiratory failure CVA with right-sided residual Dysphagia s/p PEG tube Acute on chronic encephalopathy, likely secondary to sepsis versus hypoxia Aspiration pneumonia History of PE Continue oxygen and wean off as tolerated Changed antibiotics to IV ceftriaxone Resumed Eliquis Resumed PEG tube feeds Follow-up cultures Aspiration precautions
--- NOTE | 2024-10-19 11:46 | PC.DIETICIAN ---
Nutrition prescription Glucerna 1.2 at 20 ml/hr via PEG tube by pump. Advance 10 ml every 8 hrs to goal rate of 70 ml/hr x 22 hrs. If no IV fluids, water flushes of 30 ml/hr x 22 hrs (or per MD). -Hold TF for one hour before and after levothyroxine administration-
[2024-10-19] MEDS: PANTOPRAZOLE INJ 40 MG VIAL IVP (12:00)
[2024-10-19] MEDS: APIXABAN 2.5 MG TABLET 5 MG GT ×2 (12:14→21:04)
[2024-10-19] MEDS: FLUCONAZOLE 100 MG TABLET 200 MG PO (12:17)
[2024-10-19] MEDS: NAPH,KPH MBDB 1 PACKET (1.5 GM) 2 PACKET GT (15:32)
--- NOTE | 2024-10-19 15:34 | PC.SS ---
Follow up note: pending cultures. On IV antibiotic.
[2024-10-19] MEDS: cefTRIAXone/D5w 1gm IV premix 1 GM/50 ML BAG IV (21:04)
[2024-10-19] MEDS: ATORVASTATIN CALCIUM 20 MG TABLET 40 MG GT (21:04)
[2024-10-20] VITALS (10 sets, daily range): BP systolic 104–126; BP diastolic 53–66; PULSE 62–77; RESP 16–95; TEMP 36.2–36.4; O2SAT 92–99; BMI 24.8
[2024-10-20] MEDS: ALBUTEROL/IPRATROPIUM (Duoneb) RT SOL 3 ML NEBU INH ×3 (00:52→13:39)
[2024-10-20 06:21] LABS: Basophils % (Auto) 0 % (0-2.5); Eosinophils # (Auto) 0.1 Thou/mm3 (0.0-0.5); Eosinophils % (Auto) 2 % (0-10); Hematocrit 27.7 % (41.0-53.0); Hemoglobin 9.5 g/dL (13.5-16.0); Immature Granulocytes % (Auto) 1 % (0-0); Immature Granulocytes Auto 0.05 Thou/mm3 (0.00-0.00); Lymphocytes % (Auto) 18 % (10-50); Mean Corpuscular HGB Conc 34.3 g/dl (31.0-37.0); Mean Corpuscular Hemoglobin 30.5 pg (25.0-35.0); Mean Corpuscular Volume 89 fL (80-100); Monocytes # (Auto) 0.4 Thou/mm3 (0.0-0.8); Monocytes % (Auto) 7 % (0-12); Neutrophils # (Auto) 4.2 Thou/mm3 (1.8-7.7); Neutrophils % (Auto) 72 % (37-80); Nucleated Red Blood Cell % 0 /100 WBC (0); Platelet Count 236 Thou/mm3 (140-440); RDW Standard Deviation 48.4 fL (35.1-43.9); Red Blood Count 3.11 Miln/mm3 (4.50-5.90); White Blood Count 5.8 Thou/mm3 (3.8-10.6)
[2024-10-20 06:33] LABS: Alanine Aminotransferase 16 U/L (10-49); Albumin, Serum 2.5 gm/dL (3.4-4.8); Albumin/Globulin Ratio 1.1 (1.2-2.2); Alkaline Phosphatase 38 U/L (46-116); Anion Gap 9 (7-16); Aspartate Amino Transferase 21 U/L (0-34); BUN/Creatinine Ratio 36 Ratio (12-20); Bilirubin,Total 0.2 mg/dL (0.3-1.2); Blood Urea Nitrogen 25 mg/dL (9-23); Calcium 7.7 mg/dL (8.3-10.6); Calcium (Corrected) 8.9 mg/dL (8.5-10.1); Carbon Dioxide 27.9 mMol/L (20.0-31.0); Chloride 112 mMol/L (98-107); Creatinine (Component) 0.7 mg/dL (0.6-1.3); Estimated Creatinine Clearance 84.1 mL/min (>60); Globulin 2.3 gm/dL (2.3-3.5); Glucose 98 mg/dL (74-106); Osmolality,Calculated 300 (275-295); Phosphorous 2.4 mg/dL (2.4-5.1); Potassium 3.6 mMol/L (3.4-5.1); Sodium 149 mMol/L (136-145); Total Protein 4.8 gm/dL (5.7-8.2); eGFR > 60 See Note
[2024-10-20] MEDS: PANTOPRAZOLE 40 MG TABLET PO (09:46)
[2024-10-20] MEDS: FLUCONAZOLE 100 MG TABLET 200 MG PO (09:47)
[2024-10-20] MEDS: APIXABAN 2.5 MG TABLET 5 MG GT ×2 (09:47→21:33)
--- NOTE | 2024-10-20 11:40 | PC.SS ---
SS spoke to patient's daughter, Meme, via p/c. She confirmed she is the alt medical decision maker for patient. Patient is a resident of [facility] and has been at facility since May. Patient is s/p peg tube and hx: CVA with right side hemiplegia. Family resides in [place] and prefers patient to be closer to them. SS explained we could look for alternate facilities but it will be difficult since he's already used up some of his days at [facility] since May. SS inquired if we cannot find alternate placement if she's agreeable for patient returning back to [facility]. Daughter is agreeable to this plan. Patient will need gurney transport upon discharge.
--- NOTE | 2024-10-20 13:58 | PD.ADDPROG ---
Addendum Progress Note Addendum Date of report being addended: 10/20/24 Narrative: Attending's attestation: I reviewed labs, imaging, EKG, home medications and prior available records. Face to face evaluation was performed by me. I have personally examined the patient and discussed assessment and plan with the IM team. I reviewed the resident note and agree with the plan with exceptions as below. Hypernatremia, new complication Acute hypoxic respiratory failure, likely secondary to aspiration pneumonia CVA with right-sided residual Dysphagia s/p PEG tube Acute on chronic encephalopathy, likely secondary to sepsis versus hypoxia Aspiration pneumonia History of PE Increased water flushes. Follow-up BMP in the afternoon He is on room air Changed antibiotics to IV ceftriaxone Resumed Eliquis Resumed PEG tube feeds Follow-up cultures: Negative to date Aspiration precautions Possible discharge on 10/21 if sodium improves, oxygen requirements stable, and cultures continue to be negative
--- NOTE | 2024-10-20 14:09 | PD.RESPRO ---
Documentation for date of: 10/20/24 Subjective Subjective Interval history: Patient examined at bedside today. No acute overnight events. Patient reports he is doing okay. He is wondering when he can go home. Patient's blood cultures are still pending. Patient is currently off oxygen. Patient continues to improve no other complaints this time. Exam Vital Signs Temp Pulse Resp BP Pulse Ox O2 Del Method O2 Flow Rate 97.5 F 69 17 125/65 93 L Room Air 10 10/20/24 12:00 10/20/24 13:41 10/20/24 13:41 10/20/24 12:00 10/20/24 13:41 10/20/24 12:00 10/19/24 19:49 FiO2 100 10/19/24 19:49 Narrative Exam General: AAOx2, NAD, bedbound, elderly male, HEENT: Dry mucous membranes, conjunctiva clear, PERRLA, Cardiovascular: S1, S2, radial pulses +2 bilat, RRR Pulmonary: Some Crackles auscultated in bilateral lung loja, GI: No tenderness to light or deep palpitation, no guarding, rigidity, rebound tenderness or distension, G-tube present, bowel sounds present Extremities: Trace edema in lower extremities dorsalis pedis pulses +2 bilaterally, some swelling in the R hand Neuro: AAOx2, right-sided hemiplegia Objective Labs 10/20/24 05:15 10/20/24 05:15 Labs: Laboratory Results - last 24 hr 10/20/24 05:15 WBC 5.8 RBC 3.11 L Hgb 9.5 L Hct 27.7 L MCV 89 MCH 30.5 MCHC 34.3 RDW Std Deviation 48.4 H Plt Count 236 Neut % (Auto) 72 Lymph % (Auto) 18 [place] % (Auto) 7 Eos % (Auto) 2 Baso % (Auto) 0 Neut # (Auto) 4.2 Lymph # (Auto) 1.0 [place] # (Auto) 0.4 Eos # (Auto) 0.1 Baso # (Auto) 0.0 Immature Gran # (Auto) 0.05 H Absolute Nucleated RBC 0.00 Immature Gran % 1 H Nucleated RBC % 0 Sodium 149 H Potassium 3.6 Chloride 112 H Carbon Dioxide 27.9 Anion Gap 9 BUN 25 H Creatinine 0.7 Estim Creat Clear Calc 84.1 eGFR > 60 BUN/Creatinine Ratio 36 H Glucose 98 Calculated Osmolality 300 H Calcium 7.7 L Corrected Calcium 8.9 Phosphorus 2.4 Magnesium 2.0 Total Bilirubin 0.2 L AST 21 ALT 16 Alkaline Phosphatase 38 L Total Protein 4.8 L Albumin 2.5 L Globulin 2.3 Albumin/Globulin Ratio 1.1 L ABG Interpretation ABG results: 10/19/24 01:50 ABG pH 7.41 ABG pCO2 43 ABG pO2 57 L* ABG HCO3 27 H ABG O2 Saturation 90 L ABG Base Excess 3 Quality Measures Quality Measures none Advance care planning discussed with:: patient Assessment & Plan Assessment Current Active Medications: Generic Name Dose Route Start Last Admin Trade Name Freq PRN Reason Stop Dose Admin Acetaminophen 650 mg 10/18/24 23:33 Acetaminophen Supp 650 Mg Supp SD 11/17/24 23:32 Q6HR PRN Fever > 100.4 Albuterol/Ipratropium 3 ml 10/19/24 01:00 10/20/24 13:39 Albuterol/Ipratropium (Duoneb) Rt Gisele 3 Ml Nebu INH 11/18/24 00:59 3 ml Q6HRRT RE Administration Apixaban 5 mg 10/19/24 11:30 10/20/24 09:47 Apixaban 2.5 Mg Tablet GT 11/09/24 11:29 5 mg BID RE Administration Atorvastatin Calcium 40 mg 10/19/24 21:00 10/19/24 21:04 Atorvastatin Calcium 20 Mg Tablet GT 11/18/24 20:59 40 mg HS RE Administration Fluconazole 200 mg 10/19/24 11:30 10/20/24 09:47 Fluconazole 100 Mg Tablet PO 10/26/24 11:29 200 mg QDAY RE Administration Ceftriaxone Sodium/Dextrose 1 gm in 50 mls @ 100 mls/hr 10/19/24 21:00 10/19/24 21:04 Rocephin/D5w 1gm Iv Premix IV 10/26/24 20:59 100 mls/hr HS RE Administration Ondansetron HCl 4 mg 10/18/24 23:33 Ondansetron Inj 2 Mg/Ml Inj 2 Ml IVP 11/17/24 23:32 Q6H PRN NAUSEA OR VOMITING Protocol Pantoprazole Sodium 40 mg 10/20/24 09:00 10/20/24 09:46 Pantoprazole 40 Mg Tablet PO 11/18/24 08:59 40 mg QDAY RE Administration Plan Assessment Mikal is a 79-year-old with significant 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 #Acute hypoxic respiratory failure, resolved #Acute encephalopathy #Sepsis rule out #Secondary to aspiration pneumonia #Acute encephalopathy #Underlying CVA - hemiplegia and dysphasia Head CT unremarkable Patient is poor historian baseline Pt is at high risk for aspiration due to being bed bound Pt currently off oxygen Will continue Tx at this time Plan: ? Follow-up blood cultures ? Speech therapy ? Rocephin 1 g IV daily (10/18- ? Follow-up MRSA screen ? Chest physio ? Aspiration precautions ? HOB 30 degrees #Hyperosmolar hypovolemic hypernatremia Likely related to dehydration Free water deficit 1 L Plan: ? Increase water flushes to 120 cc every 2 hours ? BMP at 9 PM #History of PE There has been some documentation that patient has a history of PE and has Eliquis 5 mg twice daily Unable to find imaging that shows this Chest CT in July shows pulmonary hypertension, however no PE Since this is a home medicine, we will continue this medicine Plan: ? 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 Follow-up cocci serologies ? Continue Diflucan 200 mg every day at #Hypertension #Hyperlipidemia Chronic LDL 55 in 05/2024 Plan: ? Holding blood pressure medicines as blood pressures soft at this point ? Resumed home Lipitor 40 mg at bedtime #History of CVA #R side hemiplegia #G-tube Patient seems to take aspirin 325, this is a high dose as usually maintenance would be 81 We will continue this dose at this time We will resume tube feeds Plan: ? Glucerna 1.2 w/water flushes 120 cc q2h ? RD on consult, appreciate recs ? Aspirin 325 mg daily #Normocytic anemia Hemoglobin 9.5 Will hold off on iron studies at this time Plan: ? Trend CBC #Hypophosphatemia, resolved #Health Maintenance Disposition: Telemetry DVT prophylaxis: Eliquis GI prophylaxis: Protonix Diet: Glucerna 1.2 w/water flushes 120 cc q2h CODE STATUS: No chest compressions Patient seen and care discussed with my attending physician, Dr. Candelario Mata, PGY-1 Attending Provider Attestation/Addendum I reviewed labs, imaging, EKG, home medications and prior available records. Face to face evaluation was performed by me. I have personally examined the patient and discussed assessment and plan with the IM team. I reviewed the resident note and agree with the plan with exceptions as below. Hypernatremia, new complication Acute hypoxic respiratory failure, likely secondary to aspiration pneumonia CVA with right-sided residual Dysphagia s/p PEG tube Acute on chronic encephalopathy, likely secondary to sepsis versus hypoxia Aspiration pneumonia History of PE Increased water flushes. Follow-up BMP in the afternoon He is on room air Changed antibiotics to IV ceftriaxone Resumed Eliquis Resumed PEG tube feeds Follow-up cultures: Negative to date Aspiration precautions Possible discharge on 10/21 if sodium improves, oxygen requirements stable, and cultures continue to be negative
--- NOTE | 2024-10-20 17:12 | PC.NURSE ---
received report from ca rn, pt received in room 362 at 171
[2024-10-20] MEDS: ATORVASTATIN CALCIUM 20 MG TABLET 40 MG GT (21:32)
[2024-10-20] MEDS: cefTRIAXone/D5w 1gm IV premix 1 GM/50 ML BAG IV (21:33)
[2024-10-20 21:58] LABS: BUN/Creatinine Ratio 32 Ratio (12-20); Blood Urea Nitrogen 19 mg/dL (9-23); Calcium 7.9 mg/dL (8.3-10.6); Carbon Dioxide 23.6 mMol/L (20.0-31.0); Creatinine (Component) 0.6 mg/dL (0.6-1.3); Estimated Creatinine Clearance 98.2 mL/min (>60); Glucose 114 mg/dL (74-106); eGFR > 60 See Note
[2024-10-20 22:24] LABS: Anion Gap 10 (7-16); Chloride 114 mMol/L (98-107); Osmolality,Calculated 297 (275-295); Potassium 4.1 mMol/L (3.4-5.1); Sodium 148 mMol/L (136-145)
[2024-10-21] VITALS (9 sets, daily range): BP systolic 113–172; BP diastolic 58–89; PULSE 67–106; RESP 17–21; TEMP 36.1–37.2; O2SAT 93–96; BMI 24.2
[2024-10-21 05:59] LABS: Basophils % (Auto) 1 % (0-2.5); Eosinophils # (Auto) 0.2 Thou/mm3 (0.0-0.5); Eosinophils % (Auto) 3 % (0-10); Hematocrit 33.2 % (41.0-53.0); Hemoglobin 11.7 g/dL (13.5-16.0); Immature Granulocytes % (Auto) 2 % (0-0); Immature Granulocytes Auto 0.14 Thou/mm3 (0.00-0.00); Lymphocytes # (Auto) 1.8 Thou/mm3 (1.0-4.8); Lymphocytes % (Auto) 28 % (10-50); Mean Corpuscular HGB Conc 35.2 g/dl (31.0-37.0); Mean Corpuscular Hemoglobin 31.2 pg (25.0-35.0); Mean Corpuscular Volume 89 fL (80-100); Monocytes # (Auto) 0.4 Thou/mm3 (0.0-0.8); Monocytes % (Auto) 6 % (0-12); Neutrophils # (Auto) 3.7 Thou/mm3 (1.8-7.7); Neutrophils % (Auto) 60 % (37-80); Nucleated Red Blood Cell % 0 /100 WBC (0); Platelet Count 216 Thou/mm3 (140-440); RDW Standard Deviation 46.4 fL (35.1-43.9); Red Blood Count 3.75 Miln/mm3 (4.50-5.90); White Blood Count 6.2 Thou/mm3 (3.8-10.6)
[2024-10-21 06:24] LABS: Alanine Aminotransferase 21 U/L (10-49); Albumin, Serum 2.8 gm/dL (3.4-4.8); Albumin/Globulin Ratio 1.1 (1.2-2.2); Alkaline Phosphatase 49 U/L (46-116); Anion Gap 12 (7-16); Aspartate Amino Transferase 36 U/L (0-34); BUN/Creatinine Ratio 28 Ratio (12-20); Bilirubin,Total 0.2 mg/dL (0.3-1.2); Blood Urea Nitrogen 17 mg/dL (9-23); Calcium 8.1 mg/dL (8.3-10.6); Calcium (Corrected) 9.1 mg/dL (8.5-10.1); Carbon Dioxide 22.1 mMol/L (20.0-31.0); Chloride 112 mMol/L (98-107); Creatinine (Component) 0.6 mg/dL (0.6-1.3); Estimated Creatinine Clearance 98.2 mL/min (>60); Globulin 2.6 gm/dL (2.3-3.5); Glucose 103 mg/dL (74-106); Osmolality,Calculated 292 (275-295); Potassium 3.6 mMol/L (3.4-5.1); Sodium 146 mMol/L (136-145); Total Protein 5.4 gm/dL (5.7-8.2); eGFR > 60 See Note
[2024-10-21] MEDS: FLUCONAZOLE 100 MG TABLET 200 MG PO (08:32)
[2024-10-21] MEDS: APIXABAN 2.5 MG TABLET 5 MG GT (08:32)
[2024-10-21] MEDS: PANTOPRAZOLE 40 MG TABLET PO (08:33)
[2024-10-21] MEDS: POT PHOS 15 mMol in NS 250 ML 15 MMOL/250 ML BAG 62.5 MMOL IV (09:39)
--- NOTE | 2024-10-21 10:26 | PC.SS ---
ASW met with Team B and per their report, at this time, the wait is for the pending cultures. Possible d/c today.
[2024-10-21] MEDS: OXCARBAZEPINE 150 MG 300 MG PO (11:01)
[2024-10-21] MEDS: PREGABALIN 25 MG CAPSULE GT (11:01)
--- NOTE | 2024-10-21 11:48 | ESPR_ITS ---
<Statement entered by Candida Lafleur MD - 10/21/24 16:07> Patient was seen and examined by me personally. I have directly supervised and reviewed documentation by the team resident and agree with its findings with any exceptions or additional findings as below. Plan of care was discussed with the attending, Dr. Carvalho. New Team B assuming care of patient starting today. Mr. 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 Patient has been on IV ceftriaxone, switched to PO cefdinir. Due to hypernatremia of 146 increased free water flushes and repeat BMP showed improvement to 142, patient will be stable for discharge back to [facility] today. Candida Lafleur, PGY-2 Documentation for date of: 10/21/24 Subjective Subjective Interval history: Patient seen and examined at bedside. Patient admitted for community-acquired pneumonia, symptoms are resolved, patient started on p.o. cefdinir. Patient's home medication pregabalin, oxcarbazepine and amlodipine resumed. Patient does have hypernatremia, increase free water flushes to 40 cc/h, will repeat BMP later today. If patient's sodium is within normal limits, patient will be discharged later today. Exam Vital Signs Temp Pulse Resp BP Pulse Ox O2 Del Method O2 Flow Rate 98.7 F 90 19 172/84 H 94 L Room Air 10 10/21/24 11:32 10/21/24 11:32 10/21/24 11:32 10/21/24 11:32 10/21/24 11:32 10/21/24 07:24 10/19/24 19:49 FiO2 100 10/19/24 19:49 Narrative Exam General: AAOx2, NAD, bedbound, elderly male, HEENT: Dry mucous membranes, conjunctiva clear, PERRLA, Cardiovascular: S1, S2, radial pulses +2 bilat, RRR Pulmonary: Some Crackles auscultated in bilateral lung loja, GI: No tenderness to light or deep palpitation, no guarding, rigidity, rebound tenderness or distension, G-tube present, bowel sounds present Extremities: Trace edema in lower extremities dorsalis pedis pulses +2 bilaterally. Neuro: AAOx2, right-sided hemiplegia, limited exam Objective Labs 10/21/24 04:25 10/21/24 12:54 Labs: Laboratory Results - last 24 hr 10/20/24 10/21/24 21:08 04:25 WBC 6.2 RBC 3.75 L Hgb 11.7 L D Hct 33.2 L MCV 89 MCH 31.2 MCHC 35.2 RDW Std Deviation 46.4 H Plt Count 216 Neut % (Auto) 60 Lymph % (Auto) 28 [place] % (Auto) 6 Eos % (Auto) 3 Baso % (Auto) 1 Neut # (Auto) 3.7 Lymph # (Auto) 1.8 [place] # (Auto) 0.4 Eos # (Auto) 0.2 Baso # (Auto) 0.0 Immature Gran # (Auto) 0.14 H Absolute Nucleated RBC 0.00 Immature Gran % 2 H Nucleated RBC % 0 Sodium 148 H 146 H Potassium 4.1 D 3.6 D Chloride 114 H 112 H Carbon Dioxide 23.6 22.1 Anion Gap 10 12 BUN 19 17 Creatinine 0.6 0.6 Estim Creat Clear Calc 98.2 98.2 eGFR > 60 > 60 BUN/Creatinine Ratio 32 H 28 H Glucose 114 H 103 Calculated Osmolality 297 H 292 Calcium 7.9 L 8.1 L Corrected Calcium 9.1 Phosphorus 2.0 L Magnesium 2.0 Total Bilirubin 0.2 L AST 36 H ALT 21 Alkaline Phosphatase 49 D Total Protein 5.4 L Albumin 2.8 L Globulin 2.6 Albumin/Globulin Ratio 1.1 L ABG Interpretation ABG results: 10/19/24 01:50 ABG pH 7.41 ABG pCO2 43 ABG pO2 57 L* ABG HCO3 27 H ABG O2 Saturation 90 L ABG Base Excess 3 Quality Measures Quality Measures none Advance care planning discussed with:: patient Assessment & Plan Assessment Current Active Medications: Generic Name Dose Route Start Last Admin Trade Name Freq PRN Reason Stop Dose Admin Acetaminophen 650 mg 10/18/24 23:33 Acetaminophen Supp 650 Mg Supp GA 11/17/24 23:32 Q6HR PRN Fever > 100.4 Apixaban 5 mg 10/19/24 11:30 10/21/24 08:32 Apixaban 2.5 Mg Tablet GT 11/09/24 11:29 5 mg BID RE Administration Atorvastatin Calcium 40 mg 10/19/24 21:00 10/20/24 21:32 Atorvastatin Calcium 20 Mg Tablet GT 11/18/24 20:59 40 mg HS RE Administration Cefdinir 300 mg 10/21/24 21:00 Cefdinir 250 Mg/5 Ml Ml PO 10/28/24 20:59 BID RE Fluconazole 200 mg 10/19/24 11:30 10/21/24 08:32 Fluconazole 100 Mg Tablet PO 10/26/24 11:29 200 mg QDAY RE Administration Potassium Phosphate 15 mmol in 250 mls @ 62.5 mls/hr 10/21/24 08:17 10/21/24 09:39 Pot Phos 15 Mmol In Ns 250 Ml IV 10/21/24 12:16 62.5 mls/hr X1 ONE Administration Ondansetron HCl 4 mg 10/18/24 23:33 Ondansetron Inj 2 Mg/Ml Inj 2 Ml IVP 11/17/24 23:32 Q6H PRN NAUSEA OR VOMITING Protocol Oxcarbazepine 300 mg 10/21/24 10:45 10/21/24 11:01 Oxcarbazepine 150 Mg Tablet PO 11/20/24 10:44 300 mg BID RE Administration Pantoprazole Sodium 40 mg 10/20/24 09:00 10/21/24 08:33 Pantoprazole 40 Mg Tablet PO 11/18/24 08:59 40 mg QDAY RE Administration Pregabalin 25 mg 10/21/24 10:45 10/21/24 11:01 Pregabalin 25 Mg Capsule GT 11/20/24 10:44 25 mg BID RE Administration Plan Assessment Mikal is a 79-year-old with significant past medical 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 #Acute hypoxic respiratory failure, resolved #Acute encephalopathy #Sepsis ruled out #Secondary to aspiration pneumonia #Acute encephalopathy #Underlying CVA - hemiplegia and dysphasia Head CT unremarkable Patient is poor historian baseline Pt is at high risk for aspiration due to being bed bound Pt currently off oxygen Blood culture negative Plan: ? Started on cefdinir, discontinue Rocephin(10/18-10/20) ? Aspiration precautions ? HOB 30 degrees #Hyperosmolar hypovolemic hypernatremia Likely related to dehydration Free water deficit 1 L Plan: ? Patient's free water flushes was increased to 40cc/hr ? BMP later today, patient will be stable for discharge if sodium is corrected #History of PE There has been some documentation that patient has a history of PE and has Eliquis 5 mg twice daily Unable to find imaging that shows this Chest CT in July shows pulmonary hypertension, however no PE Since this is a home medicine, we will continue this medicine Plan: ? 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 Follow-up cocci serologies outpatient ? Continue Diflucan 200 mg every day #Hypertension #Hyperlipidemia Chronic LDL 55 in 05/2024 Plan: ? Resume home dose amlodipine ? Resumed home Lipitor 40 mg at bedtime #History of CVA #R side hemiplegia #G-tube Patient seems to take aspirin 325, this is a high dose as usually maintenance would be 81 We will continue this dose at this time We will resume tube feeds Plan: ? Glucerna 1.2 w/water flushes 40cc/hr ? RD on consult, appreciate recs ? Aspirin 325 mg daily #Normocytic anemia Hemoglobin 9.5 Will hold off on iron studies at this time Plan: ? Trend CBC #Hypophosphatemia, resolved Health Maintenance Disposition: Telemetry DVT prophylaxis: Eliquis GI prophylaxis: Protonix Diet: Glucerna 1.2 w/water flushes 40cc/hr CODE STATUS: No chest compressions Case discussed with Attending Dr. Carvalho and Dr. Lafleur PGY2. Devon Salazar PGY1 Disclaimer: This note was dictated by speech recognition. Minor errors in pl sql programmer may be present due to voice recognition software. Attending Provider Attestation/Addendum Face to face evaluation was performed by me. I have personally seen and examined the patient. I discussed the assessment and plan with the entire medicine team. I reviewed available medical records, imaging studies, laboratory results. I agree with the above subjective data, objective findings, assessment and plan except as corrected by me or noted below #Acute hypoxic respiratory failure, resolved #Acute encephalopathy #Aspiration pneumonia #Acute encephalopathy #Underlying CVA - hemiplegia and dysphasia DC planning- to SNF- might happen later today More than > 30 minutes spent on the encounter
--- NOTE | 2024-10-21 12:00 | PC.NURSE ---
pt BP 172/84 hr 90, made aware. no new orders
[2024-10-21] MEDS: amLODIPine BESYLATE 5 MG TABLET 10 MG GT (12:58)
[2024-10-21] MEDS: CEFDINIR 250 MG/5 ML 300 MG GT (12:59)
[2024-10-21 13:26] LABS: Anion Gap 10 (7-16); BUN/Creatinine Ratio 20 Ratio (12-20); Blood Urea Nitrogen 12 mg/dL (9-23); Calcium 7.8 mg/dL (8.3-10.6); Carbon Dioxide 22.2 mMol/L (20.0-31.0); Chloride 110 mMol/L (98-107); Creatinine (Component) 0.6 mg/dL (0.6-1.3); Estimated Creatinine Clearance 98.2 mL/min (>60); Glucose 139 mg/dL (74-106); Osmolality,Calculated 284 (275-295); Potassium 3.7 mMol/L (3.4-5.1); Sodium 142 mMol/L (136-145); eGFR > 60 See Note
[2024-10-21 14:48] LABS: Cocci Serology, IgM Negative (Negative)
--- NOTE | 2024-10-21 14:57 | PC.SS ---
Addendum entered by Sonja Matamoros 10/21/24 15:19: PLEASE INFORM PT THAT HE WILL NEED TO COMPLETE A BMP TEST 3-4 DAYS AFTER D/C. Original Note: ASW arranged transportation for pt via [employer] and uploaded to [facility]. Reservation #[id number] w/ [facility] [employer] at . [employer] reported that the p/u ETA will be about 3-4 hours and will contact the assigned RN when the p/u ETA is estimated and authorized with [employer]. When [employer] calls with a p/u ETA, assigned RN will need to call [employer] to arrange transportation at [phone], as [employer] will not actually schedule the transportation, but provide [employer]patch with the authorization.
--- NOTE | 2024-10-21 15:31 | PD.RESDS ---
Planned Discharge Date 10/21/24 DS: Providers Provider Date of admission: 10/18/24 23:33 Primary care physician: Physician No Primary/Family Admitting Provider: Dariel Barron MD Attending Provider on Admission: Dariel Barron MD Consults: 10/19/24 01:40 Referral Registered Dietitian Stat Comment: peg tube feeds Attending Provider on DC: Rafael Carvalho MD Discharging Provider: Rafael Carvalho MD Anticipated date of discharge: 10/21/24 DS: Diagnosis Problem List Completed Was Problem List Reviewed/Reconciled?: Yes Hospital Course Hospital Course Hospital course: Hospital course: Mr. 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 Patient was started on IV antibiotics, there was high suspicion of aspiration pneumonia, patient's cultures were negative, patient condition eventually improved with IV antibiotics. Patient was noted to have hyponatremia, was started on free water flushes and eventually hypernatremia improved remarkably. Patient's other home medications Eliquis, fluconazole, amlodipine and Lipitor were resumed during the hospitalization. Further plan is to discharge patient on cefdinir, patient to follow-up outpatient with primary care physician within 1 week and repeat BMP in 3 to 4 days. Patient responded well to hospital treatment, patient stable for discharge. Discharge Diagnosis: #Acute hypoxic respiratory failure, resolved #Acute encephalopathy #Sepsis ruled out #Aspiration pneumonia #Underlying CVA - hemiplegia and dysphasia #Hyperosmolar hypovolemic hypernatremia #History of PE #History of valley fever #Hypertension #Hyperlipidemia #History of CVA #R side hemiplegia #G-tube #Normocytic anemia #Hypophosphatemia, resolved Case discussed with Attending Dr. Carvalho. Devon Salazar PGY1 Disclaimer: This note was dictated by speech recognition. Minor errors in chemical lab supervisor may be present due to voice recognition software. Status at Discharge Functional status at discharge: bed bound Overall status at discharge: patient is progressing back to baseline Time Spent with Patient Time attestation: Total time spent providing and/or coordinating discharge services: Time spent: Greater than 30 minutes Exam Vital Signs Temp Pulse Resp BP Pulse Ox O2 Del Method O2 Flow Rate 98.7 F 77 19 172/84 H 94 L Room Air 10 10/21/24 11:32 10/21/24 12:58 10/21/24 11:32 10/21/24 12:58 10/21/24 11:32 10/21/24 07:24 10/19/24 19:49 FiO2 100 10/19/24 19:49 Narrative Exam General: AAOx2, NAD, bedbound, elderly male, HEENT: Dry mucous membranes, conjunctiva clear, PERRLA, Cardiovascular: S1, S2, radial pulses +2 bilat, RRR Pulmonary: Some Crackles auscultated in bilateral lung loja, GI: No tenderness to light or deep palpitation, no guarding, rigidity, rebound tenderness or distension, G-tube present, bowel sounds present Extremities: Trace edema in lower extremities dorsalis pedis pulses +2 bilaterally. Neuro: AAOx2, right-sided hemiplegia, limited exam Discharge Plan Plan Patient Disposition: Xfer Skilled Nsg Fac (SNF) Patient condition on transfer: Stable Prescriptions/Referrals Prescriptions/Med Rec: New cefdinir 250 mg/5 mL Suspension For Reconstitution 300 mg PO BID 3 Days Qty: 36 0RF Continued atorvastatin [Lipitor] 80 mg Tablet 40 mg feeding tube QDAY aspirin 325 mg Tablet 325 mg feeding tube QDAY fluconazole 200 mg tablet 200 mg feeding tube QDAY oxcarbazepine 300 mg tablet 300 mg feeding tube BID melatonin 3 mg Tablet 3 mg PO HS PRN (Reason: Insomnia) famotidine 20 mg tablet 20 mg feeding tube QDAY amlodipine 10 mg tablet 10 mg feeding tube QDAY Rx Instructions: hold if sbp <110 HR <60 docusate sodium 100 mg Tablet 100 mg PO QDAY Rx Instructions: give through feeding tube fenofibrate nanocrystallized 145 mg tablet 145 mg PO QDAY Rx Instructions: give via feeding tube Eliquis 5 mg tablet 5 mg feeding tube BID acetaminophen 325 mg/10.15 mL Solution 650 mg G-tube Q6HR PRN (Reason: Pain 1-10 Or Fever > 100.4) Qty: 1015 0RF doxazosin 1 mg tablet 1 mg PO QDAY pregabalin 20 mg/mL solution 20 mg PO BID Referrals: No Primary/Family,Physician [Primary Care Provider] - Outpatient Orders (i.e. Home Health, Labs, Imaging): Basic Metabolic Panel (Routine) Timeframe: 4 Days Location: Determined by Patient Ordered By: Devon Salazar Patient/Caregiver Discharge Instructions Other Discharge Activity Instructions:: Continue free water flushes at 35 cc/h, repeat BMP in 3-4 days. Continue antibiotics cefdinir for 3 days, twice daily Continue all home medications, follow-up with primary care physician in 1 to 2 weeks. Return to ED if symptoms return or worsen. Education Materials: What Is Pneumonia?, Preventing Pneumonia, Treating Pneumonia, Hypernatremia Dc Print Language: Norwegian Stand Alone Forms: [employer] Award Info., Patient Portal Info Letter Discharge Order Discharge Orders: Discharge (Routine); Ordered 10/21/24 Ordered By: Devon Salazar Quality Discharge Quality Measures VTE prophylaxis MD Attestestation MD Attestation Face to face evaluation was performed by me. I have personally seen and examined the patient. I discussed the assessment and plan with the entire medicine team. I reviewed available medical records, imaging studies, laboratory results. I agree with the above subjective data, objective findings, assessment and plan except as corrected by me or noted below Acute hypoxic respite failure, Aspiration pneumonia likely bacterial Aspiration pneumonitis Infectious encephalopathy due to above Hyperlipidemia Essential hypertension Patient improved ready for discharge medication reconciliation done-cefdinir p.o. twice daily for 3 more days to finish More than > 30 minutes spent on the encounter
--- NOTE | 2024-10-21 16:38 | PC.SS ---
ASIris Matamoros contacted Dispatch prior to ending the day and Dispatch informed ASW that they received the Auth from [employer]. P/u ETA is 1730. All notes are in the chart and packet is ready and is in the pts chart. glassine machine tender is aware of the p/u ETA. ASW attempted to contact assigned RN, but she was unable to speak, so ASW left a message with the decision unit rn.
--- NOTE | 2024-10-21 16:50 | PC.NURSE ---
I called [facility] spoke with Bradley, they are unaware of pt. returning today, stated I will need to call [facility] admit team. i then called [facility] [phone], [facility] stated it will be okay for pt. to come back today, however they usually get informed before time of transport, [facility] will contact Bradley and let her know pt. is okay to return, that he is now long-term care and not managed care so luckily auth. is not needed. Transport is to pick pt. up at 1730.
--- NOTE | 2024-10-21 16:51 | PC.NURSE ---
called and gave report to anette Luna at [facility] where pt is discharging to
--- NOTE | 2024-10-21 16:52 | PC.NURSE ---
[facility] is here to car pick up driver pt., I advised bedside Rn to call facility and give report, and CRAFT RECRUITER to get pt. ready for discharge.
[2024-10-22 14:13] LABS: Cocci Serology, IgG Negative (Negative)
== END 2024-10-21 17:00 | disposition skilled nursing facility (03) | DRG 871 ==
LOC: SERX 23:05 → SERHOLD 10-19 00:02 → S2NX 10-19 15:17 → S3NX 10-20 17:13
PROVIDERS: Nurse Practitioner Family; Admitting Provider Student in an Organized Health Care Education/Training Program; Emergency Provider Internal Medicine Rheumatology; Visit Provider Student in an Organized Health Care Education/Training Program
DX: A41.9 Sepsis, unspecified organism (principal); G93.41 Metabolic encephalopathy; J69.0 Pneumonitis due to inhalation of food and vomit; J96.01 Acute respiratory failure with hypoxia; J18.9 Pneumonia, unspecified organism; I69.351 Hemiplegia and hemiparesis following cerebral infarction affecting right dominant side; B38.9 Coccidioidomycosis, unspecified; E87.0 Hyperosmolality and hypernatremia; E87.1 Hypo-osmolality and hyponatremia; I47.20 Ventricular tachycardia, unspecified; Z66 Do not resuscitate; K21.9 Gastro-esophageal reflux disease without esophagitis; Z93.1 Gastrostomy status; I69.320 Aphasia following cerebral infarction; I10 Essential (primary) hypertension; E78.5 Hyperlipidemia, unspecified; Z74.01 Bed confinement status; N40.0 Benign prostatic hyperplasia without lower urinary tract symptoms; E83.39 Other disorders of phosphorus metabolism; I69.391 Dysphagia following cerebral infarction; D64.9 Anemia, unspecified; R13.10 Dysphagia, unspecified; E86.0 Dehydration; E86.1 Hypovolemia; I27.20 Pulmonary hypertension, unspecified; Z79.01 Long term (current) use of anticoagulants; Z86.711 Personal history of pulmonary embolism; Z79.82 Long term (current) use of aspirin; Z79.899 Other long term (current) drug therapy
CPT/HCPCS: 36415; 36600; 70450; 71045; 80048; 80053; 81001; 82803; 83605; 83615; 83690; 83735; 83880; 84100; 84145; 84443; 84484; 85025; 85610; 85730; 86331; 86635; 87040; 87081; 87086; 87811; 93005; 93225; 94002; 94640; 96361; 96365; 96367; 96375; 99285; A9270; J0131; J0295; J0456; J0696; J2470; J2543; J7050; J7120; J7999

== ENCOUNTER 2024-10-30 21:24 | Inpatient (IN) | payer OTHER, MEDICAID, MEDICARE, SELFPAY ==
[2024-10-30 21:27] VITALS: PULSE 95; RESP 22; O2SAT 92
[2024-10-30 21:31] VITALS: BP 106/63; PULSE 89; RESP 19; TEMP 38.1; O2SAT 96
--- NOTE | 2024-10-30 21:35 | EKG_ITS ---
[facility] Test Date: 2024-10-30 Pat Name: ARELY PAL Department: Room: - Gender: Male [employer]: : 1945 Requested By: ED Temporary Provider Order Number: [id number] Reading MD: ED Temporary Provider Measurements Intervals [place] Rate: 91 P: 17 NV: 184 QRS: -34 QRSD: 90 T: 87 QT: 339 QTc: 418 Interpretive Statements SINUS RHYTHM PROBABLE ANTEROLATERAL MYOCARDIAL INFARCTION , OF INDETERMINATE AGE [35 ms Q WAVE IN I/aVL/V3-V6] Compared to ECG 10/18/2024 21:20:46 Myocardial infarct finding now present Sinus tachycardia no longer present /store/S0/[id number]
--- NOTE | 2024-10-30 21:50 | PD.EDAMS ---
Altered Mental Status RME/HPI General Chief Complaint: Shortness of Breath/Dyspnea Stated Complaint: AMS Time Seen by Provider: 10/30/24 21:50 Arrival date/time: 10/30/24 21:24 seq trans sob 70s 5l obtunded 15l nrb gcs 13 h/o cva r side Related Data Home Medications ?Medication ?Instructions ?Recorded ?Confirmed amlodipine 10 mg tablet 10 mg feeding tube QDAY 06/17/24 10/19/24 apixaban 5 mg tablet (Eliquis) 5 mg feeding tube BID 06/17/24 10/19/24 aspirin 325 mg tablet 325 mg feeding tube QDAY 06/17/24 10/19/24 atorvastatin 80 mg tablet (Lipitor) 40 mg feeding tube QDAY 06/17/24 10/19/24 docusate sodium 100 mg tablet 100 mg PO QDAY 06/17/24 10/19/24 famotidine 20 mg tablet 20 mg feeding tube QDAY 06/17/24 10/19/24 fenofibrate nanocrystallized 145 145 mg PO QDAY 06/17/24 10/19/24 mg tablet fluconazole 200 mg tablet 200 mg feeding tube QDAY 06/17/24 10/19/24 melatonin 3 mg tablet 3 mg PO HS PRN Insomnia 06/17/24 10/19/24 oxcarbazepine 300 mg tablet 300 mg feeding tube BID 06/17/24 10/19/24 doxazosin 1 mg tablet 1 mg PO QDAY 10/19/24 10/19/24 pregabalin 20 mg/mL oral solution 20 mg PO BID 10/19/24 10/19/24 Previous Rx's ?Medication ?Instructions ?Recorded acetaminophen 325 mg/10.15 mL oral 650 mg (20.3 mL) G-tube Q6HR PRN 06/20/24 solution Pain 1-10 Or Fever > 100.4 #1,015 mL Allergies Allergy/AdvReac Type Severity Reaction Status Date / Time No Known Allergies Allergy Verified 10/18/24 21:11 Course Orders Category Date Time Status EKG (ED ONLY) *Do not use* NOW Care 10/30/24 21:35 Active EKG (ED Only) Stat Exams 10/30/24 21:35 Draft Vital Signs Vital signs: Vital Signs Temperature 100.5 F H 10/30/24 21:31 Pulse Rate 89 10/30/24 21:31 Respiratory Rate 19 10/30/24 21:31 Blood Pressure 106/63 10/30/24 21:31 Pulse Oximetry (%) 96 10/30/24 21:31 Oxygen Flow Rate 15 10/30/24 21:31 Discharge Plan Prescriptions/Referrals Prescriptions/Med Rec: No Action atorvastatin [Lipitor] 80 mg Tablet 40 mg feeding tube QDAY aspirin 325 mg Tablet 325 mg feeding tube QDAY fluconazole 200 mg tablet 200 mg feeding tube QDAY oxcarbazepine 300 mg tablet 300 mg feeding tube BID melatonin 3 mg Tablet 3 mg PO HS PRN (Reason: Insomnia) famotidine 20 mg tablet 20 mg feeding tube QDAY amlodipine 10 mg tablet 10 mg feeding tube QDAY Rx Instructions: hold if sbp <110 HR <60 docusate sodium 100 mg Tablet 100 mg PO QDAY Rx Instructions: give through feeding tube fenofibrate nanocrystallized 145 mg tablet 145 mg PO QDAY Rx Instructions: give via feeding tube Eliquis 5 mg tablet 5 mg feeding tube BID acetaminophen 325 mg/10.15 mL Solution 650 mg G-tube Q6HR PRN (Reason: Pain 1-10 Or Fever > 100.4) Qty: 1015 0RF doxazosin 1 mg tablet 1 mg PO QDAY pregabalin 20 mg/mL solution 20 mg PO BID Patient/Caregiver Discharge Instructions Print Language: Surinamese
[2024-10-30 21:59] VITALS: PULSE 67
--- NOTE | 2024-10-30 21:59 | PD.EDSOB ---
ED SOB =RME/HPI General Chief Complaint: Shortness of Breath/Dyspnea Stated Complaint: AMS Time Seen by Provider: 10/30/24 21:50 Arrival date/time: 10/30/24 21:24 RME / HPI RME / HPI Narrative: Dr. 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 Patient was seen by me immediately upon ED arrival. Per EMS, patient was found to be saturating at 77% on 5L at the SNF and was altered, so EMS placed the patient on 15L via nonrebreather mask and went up to 92%. Full ROS is unobtainable due to the patient's medical condition. Related Data Home Medications ?Medication ?Instructions ?Recorded ?Confirmed amlodipine 10 mg tablet 10 mg feeding tube QDAY 06/17/24 10/19/24 apixaban 5 mg tablet (Eliquis) 5 mg feeding tube BID 06/17/24 10/19/24 aspirin 325 mg tablet 325 mg feeding tube QDAY 06/17/24 10/19/24 atorvastatin 80 mg tablet (Lipitor) 40 mg feeding tube QDAY 06/17/24 10/19/24 docusate sodium 100 mg tablet 100 mg PO QDAY 06/17/24 10/19/24 famotidine 20 mg tablet 20 mg feeding tube QDAY 06/17/24 10/19/24 fenofibrate nanocrystallized 145 145 mg PO QDAY 06/17/24 10/19/24 mg tablet fluconazole 200 mg tablet 200 mg feeding tube QDAY 06/17/24 10/19/24 melatonin 3 mg tablet 3 mg PO HS PRN Insomnia 06/17/24 10/19/24 oxcarbazepine 300 mg tablet 300 mg feeding tube BID 06/17/24 10/19/24 doxazosin 1 mg tablet 1 mg PO QDAY 10/19/24 10/19/24 pregabalin 20 mg/mL oral solution 20 mg PO BID 10/19/24 10/19/24 Previous Rx's ?Medication ?Instructions ?Recorded acetaminophen 325 mg/10.15 mL oral 650 mg (20.3 mL) G-tube Q6HR PRN 06/20/24 solution Pain 1-10 Or Fever > 100.4 #1,015 mL Allergies Allergy/AdvReac Type Severity Reaction Status Date / Time No Known Allergies Allergy Verified 10/18/24 21:11 Review of Systems Review of Systems ROS Unobtainable: unobtainable due to medical condition Past Medical History Past Medical History NEUROLOGIC: Positive Neurological Disorders (AMS,Encephalopathy) and Cerebrovascular Accident (dysphagia,aphasia, Right Hemiplegia) CARDIAC: Positive Cardiac Disorders, Hypercholesterolemia and Hypertension; Negative Congestive Heart Failure RESPIRATORY: Positive Pneumonia and Pulmonary Embolism; Negative Chronic Obstructive Pulmonary Disease (COPD) GASTROINTESTINAL: Positive Gastroesophageal Reflux Disease; Negative Gastrointestinal Disorders GENITOURINARY: Negative Genitourinary Disorders or Renal Disease MUSCULOSKELETAL: Negative Musculoskeletal Disorders ENDOCRINE: Positive Endocrine Disorders; Negative Diabetes Mellitus Type 1 or Diabetes Mellitus Type 2 (hyperglycemia) HEMATOLOGIC: Negative Blood Disorders OTHER HISTORY: Negative Cancer Surgical History SURGICAL: Positive Abdominal Surgery Social History SMOKING STATUS: Never smoker SECOND HAND EXPOSURE: No ED Exam Narrative Physical exam: GENERAL APPEARANCE: alert to voice, attempts to answer questions, well-developed, well-nourished, in moderate respiratory distress VITALS: All vitals were reviewed and the pulse ox is 96% on room air, which is normal according to my interpretation. HEENT: Normocephalic, atraumatic; pupils equal, round, reactive to light; EOMI; mucous membranes pink, moist; oropharynx clear NECK: Supple LUNGS no wheezes, no rales, bilateral rhonchi HEART: Tachycardic regular rhythm; normal S1, S2; no murmurs ABDOMEN: non distended; normal BS; soft, no tenderness, no guarding, no rebound; no masses, no organomegaly, no hernia BACK: no CVA tenderness EXTREMITIES: atraumatic; no edema NEUROLOGIC: awake; alert to voice; cranial nerves II-XII grossly intact; no focal sensory or motor deficits SKIN: warm, dry, normal color; no rashes Course Course Course Narrative: CXR is ordered for determining the etiology of shortness of breath. Quality Measures none Orders Category Date Time Status Bedside COVID-19 Antigen Test NOW Care 10/30/24 22:11 Active Bedside Influenza A&B Antigen Test NOW Care 10/30/24 22:14 Completed [place] NOW Care 10/30/24 21:59 Active EKG (ED ONLY) *Do not use* NOW Care 10/30/24 21:35 Active EKG (ED Only) Stat Exams 10/30/24 21:35 Draft XR chest 1V portable Stat Exams 10/30/24 21:59 Completed ABG [Arterial Blood Gas] Stat Lab 10/31/24 00:36 Completed B-Type Natriuretic Peptide Stat Lab 10/30/24 21:40 Completed Blood Culture (Lab) Stat Lab 10/30/24 21:40 Received CBC Stat Lab 10/30/24 22:15 Completed Comprehensive Metabolic Panel Stat Lab 10/30/24 21:40 Completed FLU A&B [Influenza A & B Rapid Panel] Urgent Lab 10/30/24 22:13 Ordered Lactate (Lactic Acid) Stat Lab 10/30/24 22:15 Completed Lipase Stat Lab 10/30/24 21:40 Completed Magnesium Stat Lab 10/30/24 21:40 Completed Partial Thromboplastin Time Stat Lab 10/30/24 22:15 Completed Procalcitonin Stat Lab 10/30/24 21:40 Completed Prothrombin Time with INR Stat Lab 10/30/24 22:15 Completed Troponin I Stat Lab 10/30/24 21:40 Completed UA, C/S IF [Urinalysis, C/S if Indicated] Stat Lab 10/31/24 00:37 Received Azithromycin Inj [Zithromax Inj] 500 mg Med 10/31/24 00:39 Active Sodium Chloride 0.9% 250 ml [Ns] 250 ml IV X1 Sodium Chloride 0.9% 1000 ml [Ns] 1,000 ml Med 10/31/24 00:05 Active IV 999 mls/hr cefTRIAXone/D5w 1gm IV premix [Rocephin/D5w 1gm IV Med 10/31/24 00:39 Active premix] 1 gm in 50 ml IV X1 BiPAP / CPAP NOW RT 10/31/24 00:05 Active Vital Signs Vital signs: Vital Signs Temperature 100.5 F H 10/30/24 21:31 Pulse Rate 89 10/30/24 21:31 Respiratory Rate 19 10/30/24 21:31 Blood Pressure 106/63 10/30/24 21:31 Pulse Oximetry (%) 96 10/30/24 21:31 Oxygen Flow Rate 15 10/30/24 21:31 Shortness of Breath / Dyspnea MDM Narrative MDM Narrative:: 0000: Patient is saturating at 88% on maximum high flow. BiPAP ordered. 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 WBC 10.8, PT/INR/PTT normal, Lactic Acid normal, BNP normal, EKG done at 2144, NSR, rate of 91, low voltage in multiple leads, Q waves in lead II, lead III, avF, and V3-V6, no acute ischemic changes, according to my interpretation. [place] [facility] Report Signed Patient: ARELY PAL [facility]. Record#: [id number] Birthdate: 1945 Age/Sex: 79 / M Location: [facility] Attending Dr: Ordering Physician: Tasha Vu MD Date of Service: 10/30/24 Procedure(s): XR chest 1V portable Accession Number(s): [id number] cc: Brendan Campuzano MD; NO PRIMARY/FAMILY,PHYSICIAN; Tasha Vu MD~ Examination: AP chest single view Technique AP portable semiupright chest single view Date and time: October 30, 2024 10:27 PM Comparison October 08, 2024 INDICATIONS: Chest pain today. FINDINGS: Pneumonia left base Subsegmental atelectasis right upper lobe Normal heart size IMPRESSION: Pneumonia left base Dictated By: Brendan Campuzano MD Signed By: <Electronically signed by Brendan Campuzano MD in OV> 10/30/24 7096 Medications / Prescriptions Medications or Prescriptions considered but not ordered:: none Medication administrations:: Medication Administration History Sodium Chloride (Ns) 1,000 mls @ 999 mls/hr IV .Q1H1M ONE Stop: 10/31/24 01:05 Azithromycin 500 mg/ Sodium (Chloride) 250 mls @ 250 mls/hr IV X1 ONE Stop: 10/31/24 01:38 Ceftriaxone Sodium/Dextrose (Rocephin/D5w 1gm Iv Premix) 1 gm in 50 mls @ 100 mls/hr IV X1 ONE Stop: 10/31/24 01:08 see above Consultations Consultation(s) initiated? (list below): Yes Consultation #1 (Physician, Specialty, Details): Discussed case with the resident physician, attending Dr. Palomino from Hospitalist service regarding admission. Discussed patients ED course, exam findings, labs, and radiology results. The Hospitalist agrees to accept the patient for admission. Time: 00:40 Diagnosis Shortness of Breath Differential Diagnosis: pulmonary embolism and other (ACS, pneumonia, pneumothorax) Most likely diagnosis given after review of the tests above:: pneumonia, hypoxia Admission Indicated Admission indicated?: indicated Admission Request Was there a request for admission?: Yes Admission Attestation Admission request attestation: Discussed case with [] from Hospitalist service regarding admission. Discussed patients ED course, exam findings, labs, and radiology results. The Hospitalist [agrees,declines] to accept the patient for admission. Disposition Plan Disposition Plan: Admit Critical Care Time Critical Care Time Critical Care Time: Yes Total Critical Care Time (min.): 35 Attestation: The high probability of sudden, clinically significant deterioration in the patient?s condition required the highest level of my preparedness to intervene urgently. The services I provided to this patient were to treat and/or prevent clinically significant deterioration. Services included the following: chart data review, reviewing nursing notes and/or old charts, documentation time, optimization consultant collaboration regarding findings and treatment options, medication orders and management, direct patient care, vital sign assessments and ordering, interpreting and reviewing diagnostic studies and lab tests. Aggregate critical care time includes only time during which I was engaged in work directly related to the patient?s care, as described above, whether at bedside or elsewhere in the Emergency Department. It did not include time spent performing other reported procedures or the services of residents, students, nurses or physician assistants. Discharge Plan Plan Patient Disposition: Admit Acute Care w/in Hospital Prescriptions/Referrals Prescriptions/Med Rec: No Action atorvastatin [Lipitor] 80 mg Tablet 40 mg feeding tube QDAY aspirin 325 mg Tablet 325 mg feeding tube QDAY fluconazole 200 mg tablet 200 mg feeding tube QDAY oxcarbazepine 300 mg tablet 300 mg feeding tube BID melatonin 3 mg Tablet 3 mg PO HS PRN (Reason: Insomnia) famotidine 20 mg tablet 20 mg feeding tube QDAY amlodipine 10 mg tablet 10 mg feeding tube QDAY Rx Instructions: hold if sbp <110 HR <60 docusate sodium 100 mg Tablet 100 mg PO QDAY Rx Instructions: give through feeding tube fenofibrate nanocrystallized 145 mg tablet 145 mg PO QDAY Rx Instructions: give via feeding tube Eliquis 5 mg tablet 5 mg feeding tube BID acetaminophen 325 mg/10.15 mL Solution 650 mg G-tube Q6HR PRN (Reason: Pain 1-10 Or Fever > 100.4) Qty: 1015 0RF doxazosin 1 mg tablet 1 mg PO QDAY pregabalin 20 mg/mL solution 20 mg PO BID Referrals: No Primary/Family,Physician [Primary Care Provider] - In 1 week Problem List Clinical Impression: Hypoxia, Pneumonia Patient/Caregiver Discharge Instructions Print Language: Lithuanian Stand Alone Forms: [facility] Award Info., Patient Portal Info Letter
[2024-10-30 22:09] VITALS: PULSE 89; RESP 20; O2SAT 96
--- NOTE | 2024-10-30 22:09 | PC.RT ---
pt placed on high flow 40L 100% due to low spo2 on 15L oxy spo2 in low 90s RR20 breathing shallow
[2024-10-30 22:30] LABS: Lactate (Lactic Acid) 0.9 mMol/L (0.4-2.0)
[2024-10-30 22:31] LABS: Basophils % (Auto) 0 % (0-2.5); Eosinophils % (Auto) 0 % (0-10); Hematocrit 30.6 % (41.0-53.0); Hemoglobin 11.6 g/dL (13.5-16.0); Immature Granulocytes % (Auto) 0 % (0-0); Immature Granulocytes Auto 0.03 Thou/mm3 (0.00-0.00); Lymphocytes # (Auto) 1.3 Thou/mm3 (1.0-4.8); Lymphocytes % (Auto) 12 % (10-50); Mean Corpuscular HGB Conc 37.9 g/dl (31.0-37.0); Mean Corpuscular Hemoglobin 32.5 pg (25.0-35.0); Mean Corpuscular Volume 86 fL (80-100); Monocytes # (Auto) 0.6 Thou/mm3 (0.0-0.8); Monocytes % (Auto) 5 % (0-12); Neutrophils % (Auto) 83 % (37-80); Nucleated Red Blood Cell % 0 /100 WBC (0); Platelet Count 271 Thou/mm3 (140-440); RDW Standard Deviation 48.4 fL (35.1-43.9); Red Blood Count 3.57 Miln/mm3 (4.50-5.90); White Blood Count 10.8 Thou/mm3 (3.8-10.6)
[2024-10-30 22:47] LABS: INR 1.1 (0.9-1.3); Partial Thromboplastin Time 30.3 Seconds (22.0-36.0)
[2024-10-30 23:10] LABS: B-Type Natriuretic Peptide 30 pg/mL (0-100)
[2024-10-30 23:26] VITALS: BP 96/59; PULSE 74; RESP 20; TEMP 38.1; O2SAT 98
[2024-10-31] VITALS (15 sets, daily range): BP systolic 97–127; BP diastolic 55–67; PULSE 60–97; RESP 12–23; TEMP 36.2–38.1; O2SAT 92–100; BMI 28.8; BMI 28.7; BMI 28.1
[2024-10-31 00:01] LABS: Alanine Aminotransferase 22 U/L (10-49); Albumin/Globulin Ratio 1.1 (1.2-2.2); Alkaline Phosphatase 57 U/L (46-116); Anion Gap 8 (7-16); BUN/Creatinine Ratio 30 Ratio (12-20); Bilirubin,Total 0.4 mg/dL (0.3-1.2); Blood Urea Nitrogen 27 mg/dL (9-23); Calcium 8.7 mg/dL (8.3-10.6); Calcium (Corrected) 9.5 mg/dL (8.5-10.1); Carbon Dioxide 25.5 mMol/L (20.0-31.0); Chloride 105 mMol/L (98-107); Creatinine (Component) 0.9 mg/dL (0.6-1.3); Globulin 2.7 gm/dL (2.3-3.5); Glucose 124 mg/dL (74-106); Lipase 43 U/L (12-53); Magnesium 2.1 mg/dL (1.6-2.6); Osmolality,Calculated 281 (275-295); Potassium 4.8 mMol/L (3.4-5.1); Sodium 138 mMol/L (136-145); Total Protein 5.7 gm/dL (5.7-8.2); Troponin I < 0.020 ng/mL (0.0-0.045); eGFR > 60 See Note
[2024-10-31 00:40] LABS: Base Excess 4 (-3-3); HCO3 28 mEq/L (20-26); O2 Saturation 97 % (91-98); PCO2 38 mmHg (32.0-48.0); PO2 78 mmHg (83-108); pH, Arterial 7.47 (7.35-7.45)
[2024-10-31 00:43] LABS: Allen Test Performed/OK; Inspired Oxygen, FIO2 100 %; Puncture Site Right Radial
[2024-10-31 00:43] LABS: Collection Type, Urine Clean Catch; Squamous Epithelial Cell,Urine 0 /hpf (0-5)
[2024-10-31 00:58] LABS: Bilirubin,Urine Negative (Negative); Blood,Urine 3+ (Negative); Budding Yeast,Urine Present; Color,Urine Orange (Lt Yel-Yel); Glucose, Urine Negative (Negative); Ketones,Urine Trace (Negative); Leukocyte Esterase,Urine Positive (Negative); Nitrite,Urine Negative (Negative); PH,Urine 5.5 (5.0-7.0); Protein,Urine 2+ (Neg - Trace); RBC,Urine 189 /hpf (0-3); Specific Gravity,Urine 1.031 (1.001-1.035); WBC,Urine 67 /hpf (0-5)
[2024-10-31 01:02] LABS: Clarity,Urine Turbid (Clear/Hazy); Culture Indicated,Urine Yes
[2024-10-31] MEDS: SODIUM CHLORIDE 0.9% 1000 ML 1,000 ML 999 ML IV ×2 (01:31→05:19)
[2024-10-31] MEDS: cefTRIAXone/D5w 1gm IV premix 1 GM/50 ML BAG IV (01:35)
[2024-10-31] MEDS: AZITHROMYCIN INJ 500 MG in SODIUM CHLORIDE 0.9% 250 ML 250 ML 250 MG IV (01:39)
--- NOTE | 2024-10-31 01:56 | PD.RESHP ---
Documentation for date of: 10/31/24 HPI History of Present Illness Chief complaint: SOB History of present illness: 79-year-old male with past medical history of CVA with residual right-sided deficits, aphasia, and dysphagia s/p PEG tube, PE on Eliquis, cocci, GERD, hypertension, hyperlipidemia, and recurrent admissions for pneumonia was admitted to the hospital 10/31/2024 after coming to the ED from [facility] transitional care due to shortness of breath. Given the patient was somnolent most of the history was taken from chart review as patient's family did not respond when attempted to contact. Per chart review patient was found to be saturating in the 77% on 5 L at the longterm facility and was altered therefore he was switched to 15 L via nonrebreather mask and his O2 went up to 92%. On assessment patient was saturating well on high flow nasal cannula and he was able to wake up to sternal rub and was briefly able to follow some simple commands and to tell who he was, but nothing else other than this. At this time will admit patient for acute hypoxic respiratory failure likely in the setting of pneumonia. ED course: Initially patient came in normal sinus febrile. Initial labs were evaluated for leukocytosis, low hemoglobin, UA was positive for leukocytes esterase, RBCs, and WBCs, and ABG showed pH of 7.47 with PCO2 of 38 and PO2 of 78. Initial imaging included EKG which showed sinus rhythm and chest x-ray that showed pneumonia of the left base. Of note patient was recently discharged on 10/21/2024 after being admitted with similar symptoms. PMH: As above Surgical Hx: Not significant Social Hx: Denies any smoking, alcohol, or drugs as per chart review Allergies: NKDA as per chart review. Review of Systems Review of Systems ROS Unobtainable: unobtainable due to mental status Past Medical History Past Medical History NEUROLOGIC: Positive Neurological Disorders (AMS,Encephalopathy) and Cerebrovascular Accident (dysphagia,aphasia, Right Hemiplegia) CARDIAC: Positive Cardiac Disorders, Hypercholesterolemia and Hypertension; Negative Congestive Heart Failure RESPIRATORY: Positive Pneumonia and Pulmonary Embolism; Negative Chronic Obstructive Pulmonary Disease (COPD) GASTROINTESTINAL: Positive Gastroesophageal Reflux Disease; Negative Gastrointestinal Disorders GENITOURINARY: Negative Genitourinary Disorders or Renal Disease MUSCULOSKELETAL: Negative Musculoskeletal Disorders ENDOCRINE: Positive Endocrine Disorders; Negative Diabetes Mellitus Type 1 or Diabetes Mellitus Type 2 (hyperglycemia) HEMATOLOGIC: Negative Blood Disorders OTHER HISTORY: Negative Cancer Surgical History SURGICAL: Positive Abdominal Surgery Social History SMOKING STATUS: Never smoker SECOND HAND EXPOSURE: No Exam Vital Signs Temp Pulse Resp BP Pulse Ox O2 Flow Rate 100.5 F H 74 20 96/59 L 98 15 10/30/24 23:26 10/30/24 23:26 10/30/24 23:26 10/30/24 23:26 10/30/24 23:26 10/30/24 23:26 Narrative Exam General: A/O x1 (to name), somnolent Eyes: PERRL, EOMI. Anicteric, vision grossly intact. Ears: No ear pain, no ear discharge, Hearing grossly intact. Nose: No nasal discharge. Mouth/Throat: Moist mucous membranes, no redness, no lesions. Neck: Neck supple, non-tender, no cervical lymphadenopathy. Lungs: Rhonchi appreciated, No accessory muscle use. Cardio: Normal S1/S2, regular rhythm, no murmurs, no JVD Abdomen: Soft, non-tender, no palpable masses, peristalsis present, no guarding or rebound. Extremities: Symmetrical, no significant deformities, no peripheral edema , non-tender, peripheral pulses presents. Skin: No rashes, no lesions, warm to touch. Neuro: R sided facial droop and hemiplegia. Results: Labs 10/31/24 04:30 10/31/24 04:30 Labs: Short CBC 10/30/24 Range/Units 22:15 WBC 10.8 H (3.8-10.6) Thou/mm3 Hgb 11.6 L (13.5-16.0) g/dL Hct 30.6 L (41.0-53.0) % Plt Count 271 D (140-440) Thou/mm3 BMP 10/30/24 21:40 Sodium 138 Potassium 4.8 Chloride 105 Carbon Dioxide 25.5 BUN 27 H Creatinine 0.9 Glucose 124 H Calcium 8.7 Cardiac Enzymes 10/30/24 Range/Units 21:40 Troponin I < 0.020 (0.0-0.045) ng/mL Liver Function 10/30/24 Range/Units 21:40 Total Bilirubin 0.4 (0.3-1.2) mg/dL ALT 22 (10-49) U/L Alkaline Phosphatase 57 (46-116) U/L Albumin 3.0 L (3.4-4.8) gm/dL Urine 10/31/24 Range/Units 00:37 Urine Color [place] A (Lt Yel-Yel) Urine Clarity Turbid A (Clear/Hazy) Urine pH 5.5 (5.0-7.0) Ur Specific [place] 1.031 (1.001-1.035) Urine Protein 2+ A (Neg - Trace) Urine Glucose (UA) Negative (Negative) ABG Interpretation ABG results: 10/31/24 00:36 ABG pH 7.47 H ABG pCO2 38 ABG pO2 78 L ABG HCO3 28 H ABG O2 Saturation 97 ABG Base Excess 4 H Quality Measures Quality Measures none Advance care planning discussed with:: patient Medications Home Medications and Allergies Home Medications ?Medication ?Instructions ?Recorded ?Confirmed ?Type amlodipine 10 mg tablet 10 mg feeding tube QDAY 06/17/24 10/31/24 History apixaban 5 mg tablet (Eliquis) 5 mg feeding tube BID 06/17/24 10/19/24 History aspirin 325 mg tablet 325 mg feeding tube QDAY 06/17/24 10/31/24 History atorvastatin 80 mg tablet (Lipitor) 40 mg feeding tube QDAY 06/17/24 10/31/24 History docusate sodium 100 mg tablet 100 mg PO QDAY 06/17/24 10/31/24 History famotidine 20 mg tablet 20 mg feeding tube QDAY 06/17/24 10/31/24 History fenofibrate nanocrystallized 145 145 mg PO QDAY 06/17/24 10/31/24 History mg tablet fluconazole 200 mg tablet 200 mg feeding tube QDAY 06/17/24 10/31/24 History melatonin 3 mg tablet 3 mg PO HS PRN Insomnia 06/17/24 10/31/24 History oxcarbazepine 300 mg tablet 300 mg feeding tube BID 06/17/24 10/31/24 History doxazosin 1 mg tablet 1 mg PO QDAY 10/19/24 10/31/24 History pregabalin 20 mg/mL oral solution 20 mg PO BID 10/19/24 10/31/24 History tramadol 50 mg tablet 50 mg feeding tube Q6H PRN pain 10/31/24 10/31/24 History Allergies Allergy/AdvReac Type Severity Reaction Status Date / Time No Known Allergies Allergy Verified 10/18/24 21:11 Visit Medications Albuterol/Ipratropium (Albuterol/Ipratropium (Duoneb) Rt Gisele 3 Ml Nebu) 3 ml INH Q6HRRT [facility] Stop: 11/30/24 06:59 Doxycycline Hyclate 100 mg/ (Sodium Chloride) 100 mls @ 100 mls/hr IV BID RE Stop: 11/07/24 01:59 Cefepime HCl 2 gm/ Sodium (Chloride) 50 mls @ 100 mls/hr IV Q8HR RE Stop: 11/07/24 01:55 Ondansetron HCl (Ondansetron Inj 2 Mg/Ml Inj 2 Ml) 4 mg IVP Q6H PRN; Protocol PRN Reason: NAUSEA OR VOMITING Stop: 11/30/24 01:50 Discontinued Medications Sodium Chloride (Ns) 1,000 mls @ 999 mls/hr IV .Q1H1M ONE Stop: 10/31/24 01:05 Last Admin: 10/31/24 01:31 Dose: 999 mls/hr Azithromycin 500 mg/ Sodium (Chloride) 250 mls @ 250 mls/hr IV X1 ONE Stop: 10/31/24 01:38 Last Admin: 10/31/24 01:39 Dose: 250 mls/hr Ceftriaxone Sodium/Dextrose (Rocephin/D5w 1gm Iv Premix) 1 gm in 50 mls @ 100 mls/hr IV X1 ONE Stop: 10/31/24 01:08 Last Admin: 10/31/24 01:35 Dose: 100 mls/hr Assessment & Plan Plan 79-year-old male with past medical history of CVA with residual right-sided deficits, aphasia, and dysphagia s/p PEG tube, PE on Eliquis, cocci, GERD, hypertension, hyperlipidemia, and recurrent admissions for pneumonia was admitted to the hospital 10/31/2024 for acute hypoxic respiratory failure likely secondary to pneumonia #Acute hypoxic respiratory failure #Pneumonia Patient came in with shortness of breath and was found to be desaturating to 77's even on 5 L of O2 by nasal cannula. Patient was recently discharged on the hospital on 10/21/2024 therefore there is suspicion for possible hospital-acquired pneumonia. Patient's procalcitonin was negative and lactic acid was also negative, but patient did spike fevers and have a WBC of 11. Chest x-ray that showed left base pneumonia Plan: Started cefepime and doxycycline given possibility of hospital-acquired pneumonia due to recent hospital discharge. Urine and blood cultures ordered Cocci, RSV, and flu ordered Will continue to monitor #Hematuria Patient had RBCs in the urine as well as WBCs Patient's urine at that looked bloody Plan: Will continue to monitor Will hold off on chemical DVT prophylaxis for now given hematuria Consider restarting Eliquis in the a.m. if hemoglobin is not dropping. Chronic diseases: #Hx of CVA with residual right-sided deficits including aphasia, dysphagia s/p PEG tube #Hx of PE on Eliquis #Hx of cocci #Hx of GERD #Hx of hypertension #Hx of hyperlipidemia Pending medication reconciliation to start patient's home medications Disposition: Patient admitted to med surg for AHRF 2/2 PNA. Diet: NPO GI prophylaxis: not indicated DVT prophylaxis: SCDs given hematuria Code: Limited, no chest compressions, okay with intubation as per previous admission Case disclosed with Attending Dr. Candelario Fitzgerald PGY1 Disclaimer: Even though this this note was dictated by speech recognition and even though it was carefully revised there may still be minor errors in precision optics technician due to voice recognition software. Attending Provider Attestation/Addendum I reviewed labs, imaging, EKG, home medications and prior available records. Face to face evaluation was performed by me. I have personally examined the patient and discussed assessment and plan with the IM team. I reviewed the resident note and agree with the plan with exceptions as below. CVA with right-sided weakness Status post PEG tube placement Acute hypoxic respiratory failure Healthcare associated pneumonia Sepsis secondary to left lower lobe pneumonia Acute hypotension Leukocytosis Start IV doxycycline/cefepime Continue oxygen as needed Resume home atorvastatin and aspirin Hold antihypertensive treatment and monitor BP Trend WBC
[2024-10-31] MEDS: CEFEPIME INJ 2 GM in SODIUM CHLORIDE 0.9% (Popper) 50 ML IV ×3 (02:48→21:37)
[2024-10-31] MEDS: DOXYCYCLINE INJ 100 MG in SODIUM CHLORIDE 0.9% (POP) 100 ML IV ×3 (02:59→20:07)
[2024-10-31 03:38] LABS: Respiratory Syncytial Virus Ag Negative (Negative)
[2024-10-31 05:00] LABS: Basophils % (Auto) 0 % (0-2.5); Eosinophils # (Auto) 0.1 Thou/mm3 (0.0-0.5); Eosinophils % (Auto) 2 % (0-10); Hematocrit 30.2 % (41.0-53.0); Hemoglobin 10.5 g/dL (13.5-16.0); Immature Granulocytes % (Auto) 0 % (0-0); Immature Granulocytes Auto 0.02 Thou/mm3 (0.00-0.00); Lymphocytes # (Auto) 1.6 Thou/mm3 (1.0-4.8); Lymphocytes % (Auto) 22 % (10-50); Mean Corpuscular HGB Conc 34.8 g/dl (31.0-37.0); Mean Corpuscular Hemoglobin 31.3 pg (25.0-35.0); Mean Corpuscular Volume 90 fL (80-100); Monocytes # (Auto) 0.4 Thou/mm3 (0.0-0.8); Monocytes % (Auto) 6 % (0-12); Neutrophils # (Auto) 5.3 Thou/mm3 (1.8-7.7); Neutrophils % (Auto) 70 % (37-80); Nucleated Red Blood Cell % 0 /100 WBC (0); Platelet Count 325 Thou/mm3 (140-440); RDW Standard Deviation 53.3 fL (35.1-43.9); Red Blood Count 3.35 Miln/mm3 (4.50-5.90); White Blood Count 7.5 Thou/mm3 (3.8-10.6)
[2024-10-31 05:19] LABS: Alanine Aminotransferase 17 U/L (10-49); Albumin, Serum 2.9 gm/dL (3.4-4.8); Albumin/Globulin Ratio 1.1 (1.2-2.2); Alkaline Phosphatase 48 U/L (46-116); Anion Gap 6 (7-16); BUN/Creatinine Ratio 24 Ratio (12-20); Bilirubin,Total 0.4 mg/dL (0.3-1.2); Blood Urea Nitrogen 22 mg/dL (9-23); Calcium 8.5 mg/dL (8.3-10.6); Calcium (Corrected) 9.4 mg/dL (8.5-10.1); Carbon Dioxide 27.1 mMol/L (20.0-31.0); Chloride 107 mMol/L (98-107); Creatinine (Component) 0.9 mg/dL (0.6-1.3); Globulin 2.6 gm/dL (2.3-3.5); Glucose 100 mg/dL (74-106); Osmolality,Calculated 282 (275-295); Potassium 4.6 mMol/L (3.4-5.1); Sodium 140 mMol/L (136-145); Total Protein 5.5 gm/dL (5.7-8.2); eGFR > 60 See Note
--- NOTE | 2024-10-31 07:09 | PC.NURSE ---
REPORT RECEIVED AT THIS TIME; PER REPORT, PT IS A 79 Y/O MALE COMING FROM [facility] FOR HYPOXIA. PT WAS RECENTLY DISCHARGED FROM THE HOSPITAL DUE TO PNEUMONIA; PT ADMITTED AGAIN FOR PNEUMONIA AND AND ACUTE RENAL FAILURE. PT WAS HYPOXIC BUT OXYGENATION SATURATION STABEL WITH HI-FLOW. PT HAS PEG TUBE AND URIOSTEGUI CATHETER IN PLACE UOPN ARRIVAL; PT'S URIOSTEGUI TUBING CHANGED HERE. 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 PT IS A LIMITED CODE WITH NO CPR. PT HAS 20G L FOREARM AND 18G L AC. PT CONNECTED TO MONITORS AT THIS TIME.
[2024-10-31] MEDS: ALBUTEROL/IPRATROPIUM (Duoneb) RT SOL 3 ML NEBU INH ×3 (07:38→18:47)
[2024-10-31] MEDS: FAMOTIDINE 20 MG TABLET GT (08:06)
[2024-10-31] MEDS: ATORVASTATIN CALCIUM 20 MG TABLET 40 MG GT (08:07)
[2024-10-31] MEDS: Aspirin 325 MG TABLET GT (08:07)
--- NOTE | 2024-10-31 08:14 | PC.NURSE ---
G-TUBE SITE CLEANED WITH NS AND GAUZE; NEW DRESSING PLACED FOR G-TUBE SITE AT THIS TIME.
[2024-10-31] MEDS: DOXAZOSIN MESYLATE 1 MG TABLET PO (08:38)
[2024-10-31] MEDS: OXCARBAZEPINE 150 MG 300 MG PO (08:39)
[2024-10-31] MEDS: FLUCONAZOLE SUSP 40 MG/ML ML 200 MG GT (08:40)
--- NOTE | 2024-10-31 08:44 | PC.NURSE ---
PT GIVEN 300ML OF WATER VIA G-TUBE.
--- NOTE | 2024-10-31 08:52 | PC.NURSE ---
SPOKE TO ABEBE DURHAM RN AT [facility] AT THIS TIME REQUESTING TO BRING PT'S FACILITY MEDS OF PREGABALIN AND FENOFIBRATE; THIS RN EXPLAINED TO ABEBE THAT [facility] DOES NOT CARRY THOSE MEDICATIONS AT THIS TIME. PER ABEBE, WILL SPEAK TO MY DON AND BRING THOSE MEDS TO YOU GUYS.
--- NOTE | 2024-10-31 09:41 | PC.CC ---
Patient is a 79 year-old male who presents to the hospital for AHRF and PNA. ASWDacia made face to face contact with the patient to complete initial assessment but was unable to complete assessment with patient as he was not responsive. ASW made telephone contact with Susie at [facility] who help complete initial assessment with this flex o writer operator. Susie reports the patient's medical decision maker they have listed is patient's Marquita Aguilar who is also listed on the patient's demographics as his next of Kin. Patient is bed bound and not ambulatory. If the patient is taken off the bed for ambulation he is wheeled in a wheelchair. Patient is max assist with all ADLs. Patient does not receive dialysis. His primary care provider is Fabian Crook. Upon discharge patient will be returning back to [facility]. banking services officer to follow up with any discharge needs.
[2024-10-31] MEDS: FENOFIBRATE 145 MG TABLET (NON-FORMULARY) GT (09:49)
--- NOTE | 2024-10-31 09:52 | PC.NURSE ---
PT GIVEN 140ML OF WATER VIA G-TUBE.
--- NOTE | 2024-10-31 10:10 | PC.SS ---
1000 SS contacted patient's spouse Marquita Aguilar [phone] to confirm she is primary medical surrogate decisionmaker. She explained their daughter, Meme Dey [phone], is the primary medical surrogate decisionmaker due to language barrier. Patient and his spouse Marquita are both [place] speaking only. Patient will need [place] transportation at the time of discharge [id number] Rounding note: Patient currently on high flow. Will return to [facility] when medically clear.
[2024-10-31] MEDS: PREGABALIN 20 MG/ML GT ×2 (10:28→20:07)
[2024-10-31 11:59] LABS: Cocci Serology, IgM Negative (Negative)
--- NOTE | 2024-10-31 12:18 | ESPR_ITS ---
<Statement entered by Lani Saul MD - 10/31/24 12:45> Patient was seen and examined at bedside. No acute overnight events. Patient was saturating 94% on high flow nasal cannula with FiO2 of 60, will try to wean off as he tolerates Continue treatment of hospital acquired pneumonia with IV antibiotics, expecting improvement of oxygenation in the next 24 hours Follow-up with the cultures which still pending Cocci IgM is negative, will follow-up with IgG Dietitian was consulted will restart tube feeding Given the history of hematuria, and current labs revealed dropping of hemoglobin, will hold off on chemical DVT prophylaxis, continue SCDs for now Will continue close monitoring, continue current treatment, oxygen support as needed. I personally saw and examined the patient and discussed the assessment and plan with the entire medicine team, including my attending , Lani Saul M.D. PGY-2 Disclaimer: Despite multiple revisions, due to the dictation software being used, the document bellow may not be free of grammatical errors including phonetic/typographic errors. However, this does not deter from our commitment to providing health care in the patient's best interest in mind. Documentation for date of: 10/31/24 Subjective Subjective Interval history: Overnight admission. Seen and examined in the ED and patient was not able to clearly articulate responses, attributed to his deficits from previous CVA. Vital signs at bedside were stable with MAP > 65, on HFNC (30/60) and saturating 94%. Will continue current regimen of cefepime and doxycycline given recent hospitalization and monitor blood and urine cultures. Leukocytosis resolved, hemoglobin stable, and chem panel largely unremarkable. RSV, flu, and COVID negative. Cocci IgM negative, IgG pending. Exam Vital Signs Temp Pulse Resp BP Pulse Ox O2 Del Method O2 Flow Rate 97.6 F 68 19 100/55 L 94 L High Flow Nasal Cannula 30 10/31/24 10:00 10/31/24 10:23 10/31/24 10:23 10/31/24 10:00 10/31/24 10:23 10/31/24 10:10/31/24 10:23 FiO2 60 10/31/24 10:23 Narrative Exam General: alert, no acute distress, on HFNC saturating well HEENT: NC/AT, mucous membranes moist, bilateral sclera anicteric Cardiovascular: regular rate and rhythm, S1/S2 present, no murmurs appreciated Pulmonary: clear to auscultation bilaterally, no rales/rhonchi/wheezes Abdominal: soft, non-tender, non-distended, no rebound/guarding, normal bowel sounds present Musculoskeletal: normal ROM, no peripheral edema Skin: warm and dry, intact, no rashes Neuro: CN II-XII intact, no focal deficits Objective Labs 11/01/24 04:51 11/01/24 04:51 Labs: Laboratory Results - last 24 hr 10/30/24 10/30/24 10/31/24 21:40 22:15 00:36 WBC 10.8 H RBC 3.57 L Hgb 11.6 L Hct 30.6 L MCV 86 MCH 32.5 MCHC 37.9 H RDW Std Deviation 48.4 H Plt Count 271 D Neut % (Auto) 83 H Lymph % (Auto) 12 Maries % (Auto) 5 Eos % (Auto) 0 Baso % (Auto) 0 Neut # (Auto) 9.0 H Lymph # (Auto) 1.3 Maries # (Auto) 0.6 Eos # (Auto) 0.0 Baso # (Auto) 0.0 Immature Gran # (Auto) 0.03 H Absolute Nucleated RBC 0.00 Immature Gran % 0 Nucleated RBC % 0 PT 12.0 INR 1.1 APTT 30.3 Puncture Site Right Radial ABG pH 7.47 H ABG pCO2 38 ABG pO2 78 L ABG HCO3 28 H ABG O2 Saturation 97 ABG Base Excess 4 H FiO2 100 Sodium 138 Potassium 4.8 Chloride 105 Carbon Dioxide 25.5 Anion Gap 8 BUN 27 H Creatinine 0.9 Estim Creat Clear Calc Not Performed. eGFR > 60 BUN/Creatinine Ratio 30 H Glucose 124 H Calculated Osmolality 281 Lactic Acid 0.9 Calcium 8.7 Corrected Calcium 9.5 Magnesium 2.1 Total Bilirubin 0.4 ALT 22 Alkaline Phosphatase 57 Troponin I < 0.020 B-Natriuretic Peptide 30 Total Protein 5.7 Albumin 3.0 L Globulin 2.7 Albumin/Globulin Ratio 1.1 L Lipase 43 Procalcitonin 0.10 Ur Collection Type Urine Color Urine Clarity Urine pH Ur Specific [place] Urine Protein Urine Glucose (UA) Urine Ketones Urine Blood Urine Nitrite Urine Bilirubin Urine Urobilinogen (Auto) Ur Leukocyte Esterase Urine RBC Urine WBC Ur Squamous Epith Cells Urine Bacteria Urine Yeast (Budding) Ur Culture Indicated? Coccidioides IgM Ab RSV Rapid 10/31/24 10/31/24 10/31/24 00:37 02:41 04:30 WBC 7.5 RBC 3.35 L Hgb 10.5 L Hct 30.2 L MCV 90 MCH 31.3 MCHC 34.8 RDW Std Deviation 53.3 H Plt Count 325 D Neut % (Auto) 70 Lymph % (Auto) 22 [place]ies % (Auto) 6 Eos % (Auto) 2 Baso % (Auto) 0 Neut # (Auto) 5.3 Lymph # (Auto) 1.6 Maries # (Auto) 0.4 Eos # (Auto) 0.1 Baso # (Auto) 0.0 Immature Gran # (Auto) 0.02 H Absolute Nucleated RBC 0.00 Immature Gran % 0 Nucleated RBC % 0 PT INR APTT Puncture Site ABG pH ABG pCO2 ABG pO2 ABG HCO3 ABG O2 Saturation ABG Base Excess FiO2 Sodium 140 Potassium 4.6 Chloride 107 Carbon Dioxide 27.1 Anion Gap 6 L BUN 22 Creatinine 0.9 Estim Creat Clear Calc Not Performed. eGFR > 60 BUN/Creatinine Ratio 24 H Glucose 100 Calculated Osmolality 282 Lactic Acid Calcium 8.5 Corrected Calcium 9.4 Magnesium 2.0 Total Bilirubin 0.4 ALT 17 Alkaline Phosphatase 48 Troponin I B-Natriuretic Peptide Total Protein 5.5 L Albumin 2.9 L Globulin 2.6 Albumin/Globulin Ratio 1.1 L Lipase Procalcitonin Ur Collection Type Clean Catch Urine Color [place] A Urine Clarity Turbid A Urine pH 5.5 Ur Specific [place] 1.031 Urine Protein 2+ A Urine Glucose (UA) Negative Urine Ketones Trace Urine Blood 3+ A Urine Nitrite Negative Urine Bilirubin Negative Urine Urobilinogen (Auto) 2.0 Ur Leukocyte Esterase Positive Urine RBC 189 H Urine WBC 67 H Ur Squamous Epith Cells 0 Urine Bacteria None Urine Yeast (Budding) Present A Ur Culture Indicated? Yes Coccidioides IgM Ab Negative RSV Rapid Negative ABG Interpretation ABG results: 10/31/24 00:36 ABG pH 7.47 H ABG pCO2 38 ABG pO2 78 L ABG HCO3 28 H ABG O2 Saturation 97 ABG Base Excess 4 H Quality Measures Quality Measures none Advance care planning discussed with:: patient Assessment & Plan Assessment Current Active Medications: Generic Name Dose Route Start Last Admin Trade Name Freq PRN Reason Stop Dose Admin Acetaminophen 650 mg 10/31/24 06:14 Acetaminophen Gisele 325 Mg/10 Ml Udc GT 11/30/24 06:13 Q6HR PRN Pain 1-10 Or Fever > 100.4 Albuterol/Ipratropium 3 ml 10/31/24 07:00 10/31/24 07:38 Albuterol/Ipratropium (Duoneb) Rt Gisele 3 Ml Nebu INH 11/30/24 06:59 3 ml Q6HRRT RE Administration Aspirin 325 mg 10/31/24 09:00 10/31/24 08:07 Aspirin 325 Mg Tablet GT 11/30/24 08:59 325 mg QDAY RE Administration Atorvastatin Calcium 40 mg 10/31/24 09:00 10/31/24 08:07 Atorvastatin Calcium 20 Mg Tablet GT 11/30/24 08:59 40 mg QDAY RE Administration Pregabalin Solution 0 ea 10/31/24 09:45 10/31/24 10:28 20mg/Ml GT 11/30/24 09:44 3.75 solution BID RE Administration Doxazosin Mesylate 1 mg 10/31/24 09:00 10/31/24 08:38 Doxazosin Mesylate 1 Mg Tablet PO 11/30/24 08:59 1 mg QDAY RE Administration Famotidine 20 mg 10/31/24 09:00 10/31/24 08:06 Famotidine 20 Mg Tablet GT 11/30/24 08:59 20 mg QDAY RE Administration Fenofibrate 145 mg 10/31/24 09:00 10/31/24 09:49 Fenofibrate 145 Mg Tablet (Non-Formulary) GT 11/30/24 08:59 145 mg QDAY RE Administration Fluconazole 200 mg 10/31/24 09:00 10/31/24 08:40 Fluconazole Susp 40 Mg/Ml Ml GT 11/07/24 08:59 200 mg QDAY RE Administration Doxycycline Hyclate 100 mg/ 100 mls @ 100 mls/hr 10/31/24 02:00 10/31/24 09:26 Sodium Chloride IV 11/07/24 01:59 Infused BID RE Infusion Cefepime HCl 2 gm/ Sodium 50 mls @ 100 mls/hr 10/31/24 14:00 Chloride IV 11/07/24 13:59 Q8HR RE Ondansetron HCl 4 mg 10/31/24 01:51 Ondansetron Inj 2 Mg/Ml Inj 2 Ml IVP 11/30/24 01:50 Q6H PRN NAUSEA OR VOMITING Protocol Oxcarbazepine 300 mg 10/31/24 09:00 10/31/24 08:39 Oxcarbazepine 150 Mg Tablet PO 11/30/24 08:59 300 mg BID RE Administration Plan Mikal Aguilar is a 79-year-old male with a past medical history of CVA with residual right-sided deficits, aphasia, and dysphagia s/p PEG tube, PE on Eliquis, cocci, GERD, hypertension, hyperlipidemia, and recurrent admissions for pneumonia who is admitted for acute hypoxic respiratory failure likely secondary to pneumonia. #Acute hypoxic respiratory failure #Pneumonia Presents with shortness of breath and found to be desaturating to 77's on 5 L NC. Recently discharged on 10/21/2024, therefore there is suspicion for possible hospital-acquired pneumonia. Procalcitonin negative, lactic acid negative, but presented with fevers and WBC of 11. Chest x-ray showed left base pneumonia. RSV, flu, and COVID negative. - Cefepime and doxycycline (10/30-) for HAP - Follow-up urine and blood cultures - Cocci IgM negative, follow-up IgG #Hematuria RBCs in urine as well as WBCs. Urine looked bloody. - Continue to monitor - Will hold off on chemical DVT prophylaxis for now given hematuria - Hemoglobin dropped from 11.6 to 10.5 so will continue to hold for now #History of CVA with residual right-sided deficits including aphasia, dysphagia s/p PEG tube - Follow-up pedodontist recommendations for tube feedings - Aspirin 325 mg daily - Atorvastatin 40 mg daily #History of cocci - Fluconazole 200 mg daily #History of PE on Eliquis - Holding eliquis at this time as hemoglobin dropped and has hematuria #History of hypertension - Blood pressure low, will hold off on antihypertensives at this time #History of hyperlipidemia - Atorvastatin 40 mg daily #History of GERD - Famotidine 20 mg daily Hospital management: Disposition: pending cultures, on IV antibiotics Fluids: not indicated Diet: NPO, pending dietitcian evaluation Lines: PIV DVT prophylaxis: holding for now GI prophylaxis: Huynh: placed CODE STATUS: limited code (no chest compressions) ----- Plan discussed with attending physician Dr. Anderson Navarro MD PGY-1 Internal Medicine Attending Provider Attestation/Addendum I have examined the patient, reviewed labs and imaging findings, discussed the case with the resident(s), and reviewed entered orders. I agree with the plan of care as outlined in this note, with these additional summaries/recommendations: Patient seen at bedside. Patient admitted overnight for acute hypoxic respiratory failure most likely secondary to aspiration pneumonia versus hospital-acquired. Patient remains on high flow nasal cannula today 30 L with FiO2 60% with O2 saturation 94%. We will continue to wean O2 as tolerated. Continue IV antibiotics and follow-up culture results when available. Consult dietary to resume tube feeds when able. Given patient likely has aspiration pneumonia we will hold tube feeds today but okay to start free water flushes. Will evaluate resuming tube feeds tomorrow. Patient is NPO. Patient has history of CVA with residual right-sided deficits continue aspirin and statin. 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 Continue fenofibrate for history of hypertriglyceridemia. Patient updated on the plan and appears to be in agreement. Please see residents note for additional details and management. Dr. Anderson MD
--- NOTE | 2024-10-31 12:53 | PC.NURSE ---
110ML OF WATER GIVEN TO PT VIA G-TUBE AT THIS TIME.
--- NOTE | 2024-10-31 15:37 | PC.DIETICIAN ---
Nutrition prescription Glucerna 1.2 at 25 ml/hr via PEG tube by pump. Advance 10 ml every 8 hrs to goal rate of 65 ml/hr x 24 hrs. If no IV fluids, water flushes of 30 ml/hr (or per MD).
[2024-10-31] MEDS: OXCARBAZEPINE 150 MG 600 MG PO ×2 (15:40→21:37)
[2024-11-01] VITALS (11 sets, daily range): BP systolic 107–134; BP diastolic 59–72; PULSE 59–71; RESP 16–97; TEMP 36.2–36.7; O2SAT 95–100
[2024-11-01] MEDS: ALBUTEROL/IPRATROPIUM (Duoneb) RT SOL 3 ML NEBU INH ×3 (00:51→12:41)
[2024-11-01] MEDS: OXCARBAZEPINE 150 MG 600 MG PO (05:55)
[2024-11-01 06:01] LABS: Basophils % (Auto) 0 % (0-2.5); Eosinophils # (Auto) 0.1 Thou/mm3 (0.0-0.5); Eosinophils % (Auto) 2 % (0-10); Hematocrit 27.9 % (41.0-53.0); Immature Granulocytes % (Auto) 1 % (0-0); Immature Granulocytes Auto 0.03 Thou/mm3 (0.00-0.00); Lymphocytes # (Auto) 1.2 Thou/mm3 (1.0-4.8); Lymphocytes % (Auto) 19 % (10-50); Mean Corpuscular HGB Conc 35.8 g/dl (31.0-37.0); Mean Corpuscular Hemoglobin 31.2 pg (25.0-35.0); Mean Corpuscular Volume 87 fL (80-100); Monocytes # (Auto) 0.4 Thou/mm3 (0.0-0.8); Monocytes % (Auto) 6 % (0-12); Neutrophils # (Auto) 4.8 Thou/mm3 (1.8-7.7); Neutrophils % (Auto) 73 % (37-80); Nucleated Red Blood Cell % 0 /100 WBC (0); Platelet Count 295 Thou/mm3 (140-440); RDW Standard Deviation 49.9 fL (35.1-43.9); Red Blood Count 3.21 Miln/mm3 (4.50-5.90); White Blood Count 6.6 Thou/mm3 (3.8-10.6)
[2024-11-01] MEDS: CEFEPIME INJ 2 GM in SODIUM CHLORIDE 0.9% (Popper) 50 ML IV ×3 (06:02→21:24)
[2024-11-01 06:30] LABS: Alanine Aminotransferase 16 U/L (10-49); Albumin, Serum 2.8 gm/dL (3.4-4.8); Albumin/Globulin Ratio 1.1 (1.2-2.2); Alkaline Phosphatase 47 U/L (46-116); Anion Gap 9 (7-16); BUN/Creatinine Ratio 27 Ratio (12-20); Bilirubin,Total 0.4 mg/dL (0.3-1.2); Blood Urea Nitrogen 16 mg/dL (9-23); Calcium 8.3 mg/dL (8.3-10.6); Calcium (Corrected) 9.3 mg/dL (8.5-10.1); Carbon Dioxide 23.6 mMol/L (20.0-31.0); Chloride 108 mMol/L (98-107); Creatinine (Component) 0.6 mg/dL (0.6-1.3); Estimated Creatinine Clearance 103.8 mL/min (>60); Globulin 2.5 gm/dL (2.3-3.5); Glucose 87 mg/dL (74-106); Magnesium 1.8 mg/dL (1.6-2.6); Osmolality,Calculated 281 (275-295); Potassium 4.2 mMol/L (3.4-5.1); Sodium 141 mMol/L (136-145); Total Protein 5.3 gm/dL (5.7-8.2); eGFR > 60 See Note
--- NOTE | 2024-11-01 07:58 | PC.NURSE ---
called Dr. Navarro and inquired about starting patient on Eliquis, no s/s of bleeding in verma catheter.
[2024-11-01] MEDS: PREGABALIN 20 MG/ML GT ×2 (09:38→21:23)
[2024-11-01] MEDS: FENOFIBRATE 145 MG TABLET (NON-FORMULARY) GT (09:39)
[2024-11-01] MEDS: FLUCONAZOLE SUSP 40 MG/ML ML 200 MG GT (09:39)
[2024-11-01] MEDS: APIXABAN 2.5 MG TABLET 5 MG GT ×2 (09:40→21:23)
[2024-11-01] MEDS: ATORVASTATIN CALCIUM 20 MG TABLET 40 MG GT (09:41)
[2024-11-01] MEDS: DOXYCYCLINE INJ 100 MG in SODIUM CHLORIDE 0.9% (POP) 100 ML IV ×2 (09:41→21:24)
[2024-11-01] MEDS: Aspirin 325 MG TABLET GT (09:41)
[2024-11-01] MEDS: FAMOTIDINE 20 MG TABLET GT (09:41)
[2024-11-01] MEDS: DOXAZOSIN MESYLATE 1 MG TABLET PO (09:50)
--- NOTE | 2024-11-01 10:45 | PD.RESPRO ---
Documentation for date of: 11/01/24 Subjective Subjective Interval history: No acute overnight events noted. Seen and examined at bedside and patient denies any fever, chills, sweats, rigors. Able to down titrate HFNC down to 15 L and 25% O2. Spoke to nursing facility at which patient came from and at baseline is not on any oxygen and has not had any oral feeds since his last admission. Will continue with current antibiotic regimen and down titrate oxygen as tolerated, anticipate discharge within next 24 to 40 hours. Exam Vital Signs Temp Pulse Resp BP Pulse Ox O2 Del Method O2 Flow Rate 97.5 F 63 20 122/70 98 High Flow Nasal Cannula 30 11/01/24 08:05 11/01/24 09:50 11/01/24 08:05 11/01/24 09:50 11/01/24 08:05 11/01/24 08:05 11/01/24 08:05 FiO2 50 11/01/24 08:05 Narrative Exam General: alert, no acute distress, on HFNC saturating well HEENT: NC/AT, mucous membranes moist, bilateral sclera anicteric Cardiovascular: regular rate and rhythm, S1/S2 present, no murmurs appreciated Pulmonary: coarse inspiratory sounds but otherwise no crackles or wheezing noted Abdominal: soft, non-tender, non-distended, no rebound/guarding, normal bowel sounds present Musculoskeletal: normal ROM, no peripheral edema Skin: warm and dry, intact, no rashes Neuro: CN II-XII intact, no focal deficits Objective Labs 11/02/24 04:52 11/02/24 04:52 Labs: Laboratory Results - last 24 hr 10/31/24 11/01/24 04:30 04:51 WBC 6.6 RBC 3.21 L Hgb 10.0 L Hct 27.9 L MCV 87 MCH 31.2 MCHC 35.8 RDW Std Deviation 49.9 H Plt Count 295 D Neut % (Auto) 73 Lymph % (Auto) 19 [place] % (Auto) 6 Eos % (Auto) 2 Baso % (Auto) 0 Neut # (Auto) 4.8 Lymph # (Auto) 1.2 [place] # (Auto) 0.4 Eos # (Auto) 0.1 Baso # (Auto) 0.0 Immature Gran # (Auto) 0.03 H Absolute Nucleated RBC 0.00 Immature Gran % 1 H Nucleated RBC % 0 Sodium 141 Potassium 4.2 Chloride 108 H Carbon Dioxide 23.6 Anion Gap 9 BUN 16 Creatinine 0.6 Estim Creat Clear Calc 103.8 eGFR > 60 BUN/Creatinine Ratio 27 H Glucose 87 Calculated Osmolality 281 Calcium 8.3 Corrected Calcium 9.3 Magnesium 1.8 Total Bilirubin 0.4 ALT 16 Alkaline Phosphatase 47 Total Protein 5.3 L Albumin 2.8 L Globulin 2.5 Albumin/Globulin Ratio 1.1 L Coccidioides IgM Ab Negative ABG Interpretation ABG results: 10/31/24 00:36 ABG pH 7.47 H ABG pCO2 38 ABG pO2 78 L ABG HCO3 28 H ABG O2 Saturation 97 ABG Base Excess 4 H Quality Measures Quality Measures none Advance care planning discussed with:: patient Assessment & Plan Assessment Current Active Medications: Generic Name Dose Route Start Last Admin Trade Name Freq PRN Reason Stop Dose Admin Acetaminophen 650 mg 10/31/24 06:14 Acetaminophen Gisele 325 Mg/10 Ml Udc GT 11/30/24 06:13 Q6HR PRN Pain 1-10 Or Fever > 100.4 Albuterol/Ipratropium 3 ml 10/31/24 07:00 11/01/24 07:08 Albuterol/Ipratropium (Duoneb) Rt Gisele 3 Ml Nebu INH 11/30/24 06:59 3 ml Q6HRRT RE Administration Apixaban 5 mg 11/01/24 09:00 11/01/24 09:40 Apixaban 2.5 Mg Tablet GT 11/22/24 08:59 5 mg BID RE Administration Aspirin 81 mg 11/02/24 09:00 Aspirin 81 Mg Chew GT 12/02/24 08:59 QDAY RE Atorvastatin Calcium 40 mg 10/31/24 09:00 11/01/24 09:41 Atorvastatin Calcium 20 Mg Tablet GT 11/30/24 08:59 40 mg QDAY RE Administration Pregabalin Solution 0 ea 10/31/24 09:45 11/01/24 09:38 20mg/Ml GT 11/30/24 09:44 3.75 solution BID RE Administration Doxazosin Mesylate 1 mg 10/31/24 09:00 11/01/24 09:50 Doxazosin Mesylate 1 Mg Tablet PO 11/30/24 08:59 1 mg QDAY RE Administration Famotidine 20 mg 10/31/24 09:00 11/01/24 09:41 Famotidine 20 Mg Tablet GT 11/30/24 08:59 20 mg QDAY RE Administration Fenofibrate 145 mg 10/31/24 09:00 11/01/24 09:39 Fenofibrate 145 Mg Tablet (Non-Formulary) GT 11/30/24 08:59 145 mg QDAY RE Administration Fluconazole 200 mg 10/31/24 09:00 11/01/24 09:39 Fluconazole Susp 40 Mg/Ml Ml GT 11/07/24 08:59 200 mg QDAY RE Administration Doxycycline Hyclate 100 mg/ 100 mls @ 100 mls/hr 10/31/24 02:00 11/01/24 09:41 Sodium Chloride IV 11/07/24 01:59 100 mls/hr BID RE Administration Cefepime HCl 2 gm/ Sodium 50 mls @ 100 mls/hr 10/31/24 14:00 11/01/24 06:02 Chloride IV 11/07/24 13:59 100 mls/hr Q8HR RE Administration Ondansetron HCl 4 mg 10/31/24 01:51 Ondansetron Inj 2 Mg/Ml Inj 2 Ml IVP 11/30/24 01:50 Q6H PRN NAUSEA OR VOMITING Protocol Oxcarbazepine 600 mg 10/31/24 15:30 11/01/24 05:55 Oxcarbazepine 150 Mg Tablet PO 11/30/24 15:29 600 mg TID RE Administration Protocol Plan Mikal Aguilar is a 79-year-old male with a past medical history of CVA with residual right-sided deficits, aphasia, and dysphagia s/p PEG tube, PE on Eliquis, cocci, GERD, hypertension, hyperlipidemia, and recurrent admissions for pneumonia who is admitted for acute hypoxic respiratory failure likely secondary to pneumonia. #Acute hypoxic respiratory failure #Pneumonia Presents with shortness of breath and found to be desaturating to 77's on 5 L NC. Recently discharged on 10/21/2024, therefore there is suspicion for possible hospital-acquired pneumonia. Procalcitonin negative, lactic acid negative, but presented with fevers and WBC of 11. Chest x-ray showed left base pneumonia. RSV, flu, and COVID negative. ? Cefepime and doxycycline (10/30-) for HAP ? Blood culture 10/30: NGTD ? Urine culture 10/31: NGTD ? Cocci IgM negative, follow-up IgG #Hematuria, microscopic vs gross, resolved RBCs in urine as well as WBCs. Urine looked bloody on admission per report and initially held eliquis but has since been resumed. ? Continue to monitor ? Will hold off on chemical DVT prophylaxis for now given hematuria ? Hemoglobin dropped from 11.6 to 10.5 so will continue to hold for now #History of CVA with residual right-sided deficits including aphasia, dysphagia s/p PEG tube ? Tube feedings resumed ? Aspirin 325 mg daily ? Atorvastatin 40 mg daily #History of cocci ? Fluconazole 200 mg daily #History of PE on Eliquis ? Resumed home eliquis of 5 mg twice daily via GT #History of hypertension ? Blood pressure low, will hold off on antihypertensives at this time #History of hyperlipidemia ? Atorvastatin 40 mg daily #History of GERD ? Famotidine 20 mg daily Hospital management: Disposition: pending cultures, on IV antibiotics Fluids: not indicated Diet: NPO, tube feedings Lines: PIV DVT prophylaxis: eliquis resumed Huynh: placed CODE STATUS: limited code (no chest compressions) ----- Plan discussed with attending physician Dr. Anderson Navarro MD PGY-1 Internal Medicine Attending Provider Attestation/Addendum I have examined the patient, reviewed labs and imaging findings, discussed the case with the resident(s), and reviewed entered orders. I agree with the plan of care as outlined in this note, with these additional summaries/recommendations: Patient seen at bedside. No acute overnight events. Patient ios non-verbal and no hx can be obtained. Patient admitted for acute hypoxic respiratory failure most likely secondary to aspiration pneumonia versus hospital-acquired. Patient continues to require high flow nasal cannula although O2 requirements continue to improve. Hopefully we can wean from high flow nasal cannula in the next 24 to 48 hours. Continue IV antibiotics and follow-up culture results when available. Consult dietary to resume tube feeds when able. Patient is NPO. Patient has history of CVA with residual right-sided deficits continue aspirin and statin. 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 Continue fenofibrate for history of hypertriglyceridemia. Please see residents note for additional details and management. Dr. Anderson MD
--- NOTE | 2024-11-01 10:49 | PC.NURSE ---
Pharmacy was made aware that pt has g-tube and medications prescribed need to reflect appropriate route. Pharmacy to make appropriate changes.
--- NOTE | 2024-11-01 12:45 | PC.NURSE ---
Coordinated care with RT, pt off high flow, high 90's RA.
--- NOTE | 2024-11-01 14:19 | PC.SS ---
Rounding note: plan is to wean down 02. Possible discharge tomorrow back to [facility].
[2024-11-01] MEDS: OXCARBAZEPINE 150 MG 600 MG GT (21:24)
[2024-11-02] VITALS (7 sets, daily range): BP systolic 101–127; BP diastolic 55–68; PULSE 61–77; RESP 14–95; TEMP 36.1–36.4; O2SAT 93–98
[2024-11-02] MEDS: CEFEPIME INJ 2 GM in SODIUM CHLORIDE 0.9% (Popper) 50 ML IV (05:16)
[2024-11-02] MEDS: OXCARBAZEPINE 150 MG 600 MG GT (05:17)
[2024-11-02 05:49] LABS: Basophils % (Auto) 0 % (0-2.5); Eosinophils # (Auto) 0.1 Thou/mm3 (0.0-0.5); Eosinophils % (Auto) 2 % (0-10); Hematocrit 27.2 % (41.0-53.0); Immature Granulocytes % (Auto) 0 % (0-0); Immature Granulocytes Auto 0.02 Thou/mm3 (0.00-0.00); Lymphocytes # (Auto) 1.1 Thou/mm3 (1.0-4.8); Lymphocytes % (Auto) 22 % (10-50); Mean Corpuscular HGB Conc 36.8 g/dl (31.0-37.0); Mean Corpuscular Hemoglobin 30.8 pg (25.0-35.0); Mean Corpuscular Volume 84 fL (80-100); Monocytes # (Auto) 0.4 Thou/mm3 (0.0-0.8); Monocytes % (Auto) 8 % (0-12); Neutrophils # (Auto) 3.4 Thou/mm3 (1.8-7.7); Neutrophils % (Auto) 68 % (37-80); Nucleated Red Blood Cell % 0 /100 WBC (0); Platelet Count 262 Thou/mm3 (140-440); RDW Standard Deviation 47.8 fL (35.1-43.9); Red Blood Count 3.25 Miln/mm3 (4.50-5.90)
[2024-11-02 06:11] LABS: Alanine Aminotransferase 16 U/L (10-49); Albumin, Serum 2.8 gm/dL (3.4-4.8); Albumin/Globulin Ratio 1.1 (1.2-2.2); Alkaline Phosphatase 49 U/L (46-116); Anion Gap 9 (7-16); Aspartate Amino Transferase 19 U/L (0-34); BUN/Creatinine Ratio 26 Ratio (12-20); Bilirubin,Total 0.3 mg/dL (0.3-1.2); Blood Urea Nitrogen 13 mg/dL (9-23); Calcium 8.4 mg/dL (8.3-10.6); Calcium (Corrected) 9.4 mg/dL (8.5-10.1); Chloride 106 mMol/L (98-107); Creatinine (Component) 0.5 mg/dL (0.6-1.3); Estimated Creatinine Clearance 124.5 mL/min (>60); Globulin 2.6 gm/dL (2.3-3.5); Glucose 109 mg/dL (74-106); Magnesium 1.6 mg/dL (1.6-2.6); Osmolality,Calculated 280 (275-295); Potassium 3.8 mMol/L (3.4-5.1); Sodium 140 mMol/L (136-145); Total Protein 5.4 gm/dL (5.7-8.2); eGFR > 60 See Note
--- NOTE | 2024-11-02 08:35 | PC.SS ---
Addendum entered by Norma Packer 11/02/24 10:32: SS follow up note; SS contacted patients , Marquita. Addendum entered by Norma Packer 11/02/24 10:20: SS follow up note: SS was contacted by [facility] and provided ETA for 1330. SS updated patient's nurse, Marquita and Susie from [facility]. SS also contacted patients daughter. Original Note: SS follow up note; SS set up transportation with [facility], Reference # [id number]. SS contacted Susie from [facility] to inform her that will be discharging today.
[2024-11-02] MEDS: APIXABAN 2.5 MG TABLET 5 MG GT (08:38)
[2024-11-02] MEDS: FAMOTIDINE 20 MG TABLET GT (08:39)
[2024-11-02] MEDS: DOXYCYCLINE INJ 100 MG in SODIUM CHLORIDE 0.9% (POP) 100 ML IV (08:39)
[2024-11-02] MEDS: DOXAZOSIN MESYLATE 1 MG TABLET GT (08:39)
[2024-11-02] MEDS: ASPIRIN 81 MG CHEW GT (08:39)
[2024-11-02] MEDS: FLUCONAZOLE SUSP 40 MG/ML ML 200 MG GT (08:40)
[2024-11-02] MEDS: FENOFIBRATE 145 MG TABLET (NON-FORMULARY) GT (08:40)
[2024-11-02] MEDS: PREGABALIN 20 MG/ML GT (08:40)
[2024-11-02] MEDS: ATORVASTATIN CALCIUM 20 MG TABLET 40 MG GT (08:40)
--- NOTE | 2024-11-02 10:55 | PC.NURSE ---
report given to Inez PAZ at [facility]. ETA on 1330.
--- NOTE | 2024-11-02 11:50 | ESDS_ITS ---
Planned Discharge Date 11/02/24 DS: Providers Provider Date of admission: 10/31/24 01:47 Primary care physician: Physician No Primary/Family Admitting Provider: Joe Palomino MD Attending Provider on Admission: Dariel Barron MD Consults: 10/31/24 10:54 Referral Registered Dietitian Routine Comment: Attending Provider on DC: Jose Navarro MD Discharging Provider: Jose Navarro MD DS: Diagnosis Problem List Completed Was Problem List Reviewed/Reconciled?: Yes Hospital Course Hospital Course Hospital course: Mikal Aguilar is a 79-year-old male with a past medical history of CVA with residual right-sided deficits, aphasia, and dysphagia s/p PEG tube, PE on Eliquis, cocci, GERD, hypertension, hyperlipidemia, and recurrent admissions for pneumonia who is admitted for acute hypoxic respiratory failure likely secondary to pneumonia. Patient is coming from [facility] and was able to speak to staff there and states that patient has had a history of aspiration pneumonia for which she has been strictly n.p.o. since his last admission earlier this month. Apparently, patient had become short of breath and somnolent and was brought to the ED. He is not on supplemental oxygen there but was placed on high flow nasal cannula during the hospital upon admission. RSV, flu, COVID are all negative but chest x-ray showed pneumonia in the left base for which patient was started on cefepime and doxycycline given recent hospitalization. Throughout hospital course HFNC was able to be weaned down where patient was completely off supplemental oxygen and saturating 95%, patient did not spike any fevers, and leukocytosis had resolved. Otherwise, CHEM panel was largely unremarkable and patient was stable for discharge back to [facility] with 5 more days of Augmentin and doxycycline. Diagnoses during admission: #Acute hypoxic respiratory failure #Pneumonia #Hematuria, microscopic vs gross, resolved #History of CVA with residual right-sided deficits including aphasia, dysphagia s/p PEG tube #History of cocci #History of PE on Eliquis #History of hypertension #History of hyperlipidemia #History of GERD Discharge instructions: ? Take doxycycline and amoxicillin-clavulanate twice per day for 5 more days ? Your aspirin dosage has been changed to 81 mg daily ? Hold amlodipine until you follow-up with your PCP or if BP is elevated in facility ? Continue taking all other home medications as prescribed ? Follow-up with PCP within 1-2 weeks of discharge ? If you do not have a PCP, you can follow-up at the [facility] (you can call [phone] to make an appointment) ? If you wish to follow-up with Dr. Navarro, schedule appointment on Tuesday ? Return to ED if symptoms worsen or recur ----- Plan discussed with attending physician Dr. Andersno Navarro MD PGY-1 Internal Medicine Time Spent with Patient Time attestation: Total time spent providing and/or coordinating discharge services: Time spent: Greater than 30 minutes Exam Vital Signs Temp Pulse Resp BP Pulse Ox O2 Del Method O2 Flow Rate 97.2 F 66 14 127/64 96 Room Air 30 11/02/24 08:00 11/02/24 08:39 11/02/24 08:00 11/02/24 08:39 11/02/24 08:00 11/02/24 08:00 11/01/24 15:50 FiO2 50 11/01/24 15:50 Narrative Exam General: alert, no acute distress, on HFNC saturating well HEENT: NC/AT, mucous membranes moist, bilateral sclera anicteric Cardiovascular: regular rate and rhythm, S1/S2 present, no murmurs appreciated Pulmonary: on room air, coarse inspiratory sounds but otherwise no crackles or wheezing noted Abdominal: soft, non-tender, non-distended, no rebound/guarding, normal bowel sounds present Musculoskeletal: normal ROM, no peripheral edema Skin: warm and dry, intact, no rashes Neuro: slurred speech but at baseline, right-sided deficits from previous CVA Discharge Plan Plan Patient Disposition: Xfer Skilled Nsg Fac (SNF) Care Plan Goals: ? Take doxycycline and amoxicillin-clavulanate twice per day for 5 more days ? Your aspirin dosage has been changed to 81 mg daily ? Hold amlodipine until you follow-up with your PCP or if BP is elevated in facility ? Continue taking all other home medications as prescribed ? Follow-up with PCP within 1-2 weeks of discharge ? If you do not have a PCP, you can follow-up at the [facility] (you can call [phone] to make an appointment) ? If you wish to follow-up with Dr. Navarro, schedule appointment on Wednesday afternoons ? Return to ED if symptoms worsen or recur Prescriptions/Referrals Prescriptions/Med Rec: New aspirin [Children's Aspirin] 81 mg Tablet,Chewable 81 mg G-tube QDAY 30 Days Qty: 30 0RF amoxicillin-pot clavulanate 875-125 mg tablet 1 tab PO BID 5 Days Qty: 10 0RF doxycycline hyclate 100 mg capsule 100 mg PO BID 5 Days Qty: 10 0RF Continued atorvastatin [Lipitor] 80 mg Tablet 40 mg feeding tube QDAY fluconazole 200 mg tablet 200 mg feeding tube QDAY oxcarbazepine 300 mg tablet 300 mg feeding tube BID melatonin 3 mg Tablet 3 mg PO HS PRN (Reason: Insomnia) famotidine 20 mg tablet 20 mg feeding tube QDAY docusate sodium 100 mg Tablet 100 mg PO QDAY Rx Instructions: give through feeding tube fenofibrate nanocrystallized 145 mg tablet 145 mg PO QDAY Rx Instructions: give via feeding tube Eliquis 5 mg tablet 5 mg feeding tube BID acetaminophen 325 mg/10.15 mL Solution 650 mg G-tube Q6HR PRN (Reason: Pain 1-10 Or Fever > 100.4) Qty: 1015 0RF doxazosin 1 mg tablet 1 mg PO QDAY pregabalin 20 mg/mL solution 20 mg PO BID tramadol 50 mg tablet 50 mg feeding tube Q6H PRN (Reason: pain) lidocaine HCl [Lidocaine Viscous] 2 % solution 15 ml PO Q4HR PRN (Reason: face pain from trigeminal neuralgia) Rx Instructions: apply 1 application to inside aspect of right cheek (buccal mucosa), focusing on the areas the patient reports pain Held amlodipine 10 mg tablet 10 mg feeding tube QDAY Hold Instructions: BP stable while inpatient. Hold until follow-up with PCP, or can continue if BP elevated back at facility. Rx Instructions: hold if sbp <110 HR <60 Discontinued aspirin 325 mg Tablet 325 mg feeding tube QDAY Referrals: No Primary/Family,Physician [Primary Care Provider] - Patient/Caregiver Discharge Instructions Print Language: Occitan Stand Alone Forms: Bina Award Info., Patient Portal Info Letter Discharge Order Discharge Orders: Discharge (Routine); Ordered 11/02/24 Ordered By: Jose Navarro Quality Discharge Quality Measures VTE prophylaxis Attestestation Attestation I have examined the patient, reviewed labs and imaging findings, discussed the case with the resident(s), and reviewed entered orders. I agree with the plan of care as outlined in this note. Time Spent: [address] Anderson MD
[2024-11-02 14:04] LABS: Cocci Serology, IgG Negative (Negative)
== END 2024-11-02 14:45 | disposition skilled nursing facility (03) | DRG 193 ==
LOC: SERX 10-31 00:44 → SERHOLD 10-31 01:59 → S3NX 10-31 13:34
PROVIDERS: Admitting Provider Student in an Organized Health Care Education/Training Program; Emergency Provider Emergency Medicine; Visit Provider Student in an Organized Health Care Education/Training Program
DX: J18.9 Pneumonia, unspecified organism (principal); J96.01 Acute respiratory failure with hypoxia; I69.351 Hemiplegia and hemiparesis following cerebral infarction affecting right dominant side; I10 Essential (primary) hypertension; I69.320 Aphasia following cerebral infarction; K21.9 Gastro-esophageal reflux disease without esophagitis; I69.321 Dysphasia following cerebral infarction; Y95 Nosocomial condition; R13.10 Dysphagia, unspecified; E78.5 Hyperlipidemia, unspecified; E78.1 Pure hyperglyceridemia; R31.29 Other microscopic hematuria; Z79.01 Long term (current) use of anticoagulants; Z93.1 Gastrostomy status; Z79.82 Long term (current) use of aspirin; Z79.899 Other long term (current) drug therapy; Z86.711 Personal history of pulmonary embolism; Z87.01 Personal history of pneumonia (recurrent)
CPT/HCPCS: 36415; 36600; 71045; 80053; 81001; 82803; 83605; 83690; 83735; 83880; 84145; 84484; 85025; 85610; 85730; 86331; 86635; 87040; 87081; 87086; 87400; 87502; 87634; 87811; 93005; 94640; 96361; 96365; 96367; 99291; A9270; J0456; J0692; J0696; J3490; J7030; J7050

== ENCOUNTER 2024-12-06 16:28 | Emergency (ER) | payer OTHER, MEDICAID, SELFPAY ==
[2024-12-06 16:39] VITALS: BP 122/65; PULSE 96; RESP 17; TEMP 37.2; O2SAT 95
[2024-12-06 16:45] VITALS: O2SAT 97
--- NOTE | 2024-12-06 17:15 | XR_ITS ---
Examination: AP chest single view Technique :AP portable semiupright chest single view Date and time: December 06, 2024, 1745 hours INDICATIONS: Coughing congestion today FINDINGS: Reduced inspiratory effort. Mild prominence cardiac contour. Mild vascular congestion. No lobar pneumonia IMPRESSION: No lobar pneumonia
--- NOTE | 2024-12-06 17:17 | EKG_ITS ---
[facility] Test Date: 2024-12-06 Pat Name: ARELY PAL Department: Room: - Gender: Male Solution Strategist: : 1945 Requested By: Yayo Moses Order Number: [id number] Reading MD: Yayo Moses Measurements Intervals [place] Rate: 108 P: 87 ND: 171 QRS: -45 QRSD: 94 T: 68 QT: 337 QTc: 452 Interpretive Statements SINUS TACHYCARDIA LOW QRS VOLTAGE IN EXTREMITY LEADS [QRS DEFLECTION < 0.5 mV IN LIMB LEADS] Compared to ECG 10/30/2024 21:44:12 Low QRS voltage now present Sinus rhythm no longer present Myocardial infarct finding no longer present /store/S0/[id number]/ecg/[id number].pdf
--- NOTE | 2024-12-06 17:18 | PD.EDMALE ---
ED Male Genitalurinary RME/HPI General Chief complaint: Urogenital-Male Stated complaint: CATHETER PULL OUT/ TRAUMA / TAKING ELIQUIS Time Seen by Provider: 12/06/24 16:39 Arrival date/time: 12/06/24 16:28 RME / HPI RME / HPI Narrative: 80-year-old male patient was brought in by EMS for evaluation regarding ureteral injury. Patient apparently pulled out his catheter, yesterday. Since that he has been having oozing bright red blood per urethra. Patient is taking Eliquis. He stopped Eliquis today. Patient is nonverbal. She had a significant history of diabetes hypertension and stroke with right-sided paralysis. Patient is on PEG tube feeding Related Data Home Medications ?Medication ?Instructions ?Recorded ?Confirmed amlodipine 10 mg tablet 10 mg feeding tube QDAY 06/17/24 10/31/24 Held on 11/02/24. Instructions: BP stable while inpatient. Hold until follow-up with PCP, or can continue if BP elevated back at facility. apixaban 5 mg tablet (Eliquis) 5 mg feeding tube BID 06/17/24 10/31/24 atorvastatin 80 mg tablet (Lipitor) 40 mg feeding tube QDAY 06/17/24 10/31/24 docusate sodium 100 mg tablet 100 mg PO QDAY 06/17/24 10/31/24 famotidine 20 mg tablet 20 mg feeding tube QDAY 06/17/24 10/31/24 fenofibrate nanocrystallized 145 145 mg PO QDAY 06/17/24 10/31/24 mg tablet fluconazole 200 mg tablet 200 mg feeding tube QDAY 06/17/24 10/31/24 melatonin 3 mg tablet 3 mg PO HS PRN Insomnia 06/17/24 10/31/24 oxcarbazepine 300 mg tablet 300 mg feeding tube BID 06/17/24 10/31/24 doxazosin 1 mg tablet 1 mg PO QDAY 10/19/24 10/31/24 pregabalin 20 mg/mL oral solution 20 mg PO BID 10/19/24 10/31/24 lidocaine HCl 2 % mucosal solution 15 ml PO Q4HR PRN face pain from 10/31/24 10/31/24 (Lidocaine Viscous) trigeminal neuralgia tramadol 50 mg tablet 50 mg feeding tube Q6H PRN pain 10/31/24 10/31/24 Previous Rx's ?Medication ?Instructions ?Recorded acetaminophen 325 mg/10.15 mL oral 650 mg (20.3 mL) G-tube Q6HR PRN 06/20/24 solution Pain 1-10 Or Fever > 100.4 #1,015 mL levofloxacin 250 mg/10 mL oral 500 mg (20 mL) PO Q24H 7 days #140 12/06/24 solution mL Allergies Allergy/AdvReac Type Severity Reaction Status Date / Time No Known Allergies Allergy Verified 12/06/24 17:31 Review of Systems Review of Systems Narrative Review of Systems: Review of system reviewed and within normal limits except mentioned in HPI ED Exam Narrative Physical exam: VITAL SIGNS: Reviewed. GENERAL APPEARANCE: Open eyes with verbal stimulation, and does not follows commands, no acute distress, HEAD AND FACE: Non-traumatic. ENT: PERRL, pink conjunctivitis, eyelid no trauma, Mucous membrane moist. NECK: Supple, nontender, no nuchal rigidity. CHEST: No tenderness, no crepitus, no paradoxical movement, no retractions. LUNGS: Clear, well ventilated, symmetric, no rales, no wheezing, no ronchi, no stridor, good breath sounds bilaterally. HEART: Regular rate, regular rhythm, no murmur, no gallops. ABDOMEN: Soft, positive bowel sounds, nondistended, no guarding, nontender, no rebound, no masses, RECTAL: Deferred. GENITAL: Trauma noted on the urethra, with minimal bleeding NEUROLOGICAL: Gross motor function intact sensory function intact, Appropriate for age. MUSCULOSKELETAL: low back nontender, full range of motion. EXTREMITIES: Nontender, full range of motion. SKIN: Color pink, dry, no rash, no lacerations, no abrasions, no contusions. LYMPHATICS: Deferred. Course Quality Measures none Orders Category Date Time Status EKG (ED ONLY) *Do not use* NOW Care 12/06/24 17:17 Completed Huynh [Urinary Catheter] QS Care 12/06/24 17:[address] head/brain wo con Stat Exams 12/06/24 20:54 Stop Req EKG (ED Only) Stat Exams 12/06/24 17:17 Draft XR chest 1V Stat Exams 12/06/24 17:15 Completed Blood Culture (Lab) Stat Lab 12/06/24 17:40 Received CBC Stat Lab 12/06/24 17:35 Completed Comprehensive Metabolic Panel Stat Lab 12/06/24 17:35 Completed Lactate (Lactic Acid) Stat Lab 12/06/24 17:35 Completed Lactic Acid, 3 HR Stat Lab 12/06/24 20:54 Completed Partial Thromboplastin Time Stat Lab 12/06/24 17:35 Completed Urinalysis, C/S if Indicated Stat Lab 12/06/24 18:03 Completed Urine Culture Stat Lab 12/06/24 18:03 Received Sodium Chloride 0.9% 1000 ml [Ns] 1,000 ml Med 12/06/24 17:16 Discontinued IV 999 mls/hr cefTRIAXone/D5w 1gm IV premix [Rocephin/D5w 1gm IV Med 12/06/24 20:38 Active premix] 1 gm in 50 ml IV X1 Vital Signs Vital signs: Vital Signs Temperature 98.9 F 12/06/24 16:39 Pulse Rate 96 12/06/24 16:39 Respiratory Rate 17 12/06/24 16:39 Blood Pressure 122/65 12/06/24 16:39 Pulse Oximetry (%) 95 12/06/24 16:39 Oxygen Delivery Method Nasal Cannula 12/06/24 16:39 Oxygen Flow Rate 6 12/06/24 16:39 Urogenital - Male MDM Narrative MDM Narrative:: 80-year-old male patient was brought in by EMS for evaluation regarding ureteral injury. Patient apparently pulled out his catheter, yesterday. Since that he has been having oozing bright red blood per urethra. Patient is taking Eliquis. He stopped Eliquis today. Patient is nonverbal. She had a significant history of diabetes hypertension and stroke with right-sided paralysis. Patient is on PEG tube feeding Patient Huynh catheter was reinserted without any difficulty, draining pinkish colored urine, no blood clots noted. Urinalysis showed UTI. Chest x-ray showed no pneumonia. CBC showed leukocytosis of 15.1. Lactic acid initially was noted to be 2.3, repeat lactic acid was noted to be 1.4. Patient received IV fluids, patient received IV ceftriaxone. On reevaluation, patient was noted to be drowsy according to the family that is the patient's baseline. Patient stable for discharge home. Patient data External records reviewed:: Custodial records and None Clinical information provided by:: EMS and family Social determinants that could affect healthcare access:: none Patient has the following chronic illnesses:: Patient is DNR, hypertension CVA, with right-sided paralysis, nonverbal How is presenting disease/condition affected by chronic disease/condition?: exacerbated by Evaluation data The following diagnostics were reviewed and interpreted by me:: lab results, radiology exam(s) and EKG tracing(s) Lab and/or radiology exams considered but not ordered:: None Interpretation Summary: EKG showed sinus tachycardia, ventricular rate of 108 bpm, no ST segment elevation or depression noted. Medications / Prescriptions Medications or Prescriptions considered but not ordered:: None Medication administrations:: Medication Administration History Ceftriaxone Sodium/Dextrose (Rocephin/D5w 1gm Iv Premix) 1 gm in 50 mls @ 100 mls/hr IV X1 ONE Stop: 12/06/24 21:07 Last Admin: 12/06/24 20:53 Dose: 100 mls/hr Documented By: EF Discontinued Medications Sodium Chloride (Ns) 1,000 mls @ 999 mls/hr IV .Q1H1M ONE Stop: 12/06/24 18:16 Last Infusion: 12/06/24 20:16 Dose: Infused Documented By: Admin: 12/06/24 18:17 Dose: 999 mls/hr Documented By: RD IV fluids, IV ceftriaxone Consultations Consultation(s) initiated? (list below): No Diagnosis Urogenital Male Differential Diagnosis: urinary tract infection and other (Huynh catheter dislodgment) Most likely diagnosis given after review of the tests above:: Huynh catheter dislodgment,uti Admission Indicated Admission indicated?: not indicated Explain why admission is indicated or not indicated:: Stable Admission Request Was there a request for admission?: No Disposition Plan Disposition Plan: Discharge Discharge Attestation Discharge Attestation: . Patient condition: Stable Discharge Plan Plan Patient Disposition: Xfer Skilled Nsg Fac (SNF) Discharge Disposition comment: Stable Prescriptions/Referrals Prescriptions/Med Rec: New levofloxacin 250 mg/10 mL solution 500 mg PO Q24H 7 Days Qty: 140 0RF No Action atorvastatin [Lipitor] 80 mg Tablet 40 mg feeding tube QDAY fluconazole 200 mg tablet 200 mg feeding tube QDAY oxcarbazepine 300 mg tablet 300 mg feeding tube BID melatonin 3 mg Tablet 3 mg PO HS PRN (Reason: Insomnia) famotidine 20 mg tablet 20 mg feeding tube QDAY amlodipine 10 mg tablet 10 mg feeding tube QDAY Rx Instructions: hold if sbp <110 HR <60 docusate sodium 100 mg Tablet 100 mg PO QDAY Rx Instructions: give through feeding tube fenofibrate nanocrystallized 145 mg tablet 145 mg PO QDAY Rx Instructions: give via feeding tube Eliquis 5 mg tablet 5 mg feeding tube BID acetaminophen 325 mg/10.15 mL Solution 650 mg G-tube Q6HR PRN (Reason: Pain 1-10 Or Fever > 100.4) Qty: 1015 0RF doxazosin 1 mg tablet 1 mg PO QDAY pregabalin 20 mg/mL solution 20 mg PO BID tramadol 50 mg tablet 50 mg feeding tube Q6H PRN (Reason: pain) lidocaine HCl [Lidocaine Viscous] 2 % solution 15 ml PO Q4HR PRN (Reason: face pain from trigeminal neuralgia) Rx Instructions: apply 1 application to inside aspect of right cheek (buccal mucosa), focusing on the areas the patient reports pain Referrals: Rachid([facility])Fabian MD [Primary Care Provider] - In 1 week Problem List Clinical Impression: Dislodged Huynh catheter, UTI (urinary tract infection) Patient/Caregiver Discharge Instructions Discharge Activity: activity as tolerated Education Materials: Understanding Urinary Tract ... Additional Instructions: Thank you for the opportunity for serving you today. You are stable for discharged . You are advised to: Follow-up with your PCP in 1 to 2 days Return to ED for worsening of symptoms Increase oral fluids Levaquin 500 mg daily for 7 days Print Language: Armenian Stand Alone Forms: Bina Award Info., Patient Portal Info Letter KRISTI/JOSEPH Supervising Physician PA/JOSEPH Supervising Physician: MD Caitlin
[2024-12-06 17:49] LABS: Lactate (Lactic Acid) 2.3 mMol/L (0.4-2.0)
[2024-12-06 17:50] LABS: Basophils # (Auto) 0.0 Thou/mm3 (0.0-0.2); Basophils % (Auto) 0 % (0-2.5); Eosinophils # (Auto) 0.0 Thou/mm3 (0.0-0.5); Eosinophils % (Auto) 0 % (0-10); Hematocrit 29.0 % (41.0-53.0); Hemoglobin 10.5 g/dL (13.5-16.0); Immature Granulocytes Auto 0.07 Thou/mm3 (0.00-0.00); Lymphocytes # (Auto) 0.6 Thou/mm3 (1.0-4.8); Lymphocytes % (Auto) 4 % (10-50); Mean Corpuscular HGB Conc 36.2 g/dl (31.0-37.0); Mean Corpuscular Hemoglobin 31.3 pg (25.0-35.0); Mean Corpuscular Volume 86 fL (80-100); Monocytes # (Auto) 0.6 Thou/mm3 (0.0-0.8); Monocytes % (Auto) 4 % (0-12); Neutrophils # (Auto) 13.8 Thou/mm3 (1.8-7.7); Neutrophils % (Auto) 91 % (37-80); Nucleated Red Blood Cell # 0.00 Thou/mm3 (0.00-0.00); Nucleated Red Blood Cell % 0 /100 WBC (0); Platelet Count 251 Thou/mm3 (140-440); RDW Standard Deviation 45.9 fL (35.1-43.9); Red Blood Count 3.36 Miln/mm3 (4.50-5.90); White Blood Count 15.1 Thou/mm3 (3.8-10.6)
[2024-12-06 18:04] LABS: Partial Thromboplastin Time 31.6 Seconds (22.0-36.0)
[2024-12-06] MEDS: SODIUM CHLORIDE 0.9% 1000 ML 1,000 ML 999 ML IV (18:17)
[2024-12-06 18:18] LABS: Alanine Aminotransferase 11 U/L (10-49); Albumin, Serum 3.3 gm/dL (3.4-4.8); Albumin/Globulin Ratio 1.0 (1.2-2.2); Alkaline Phosphatase 54 U/L (46-116); Anion Gap 7 (7-16); Aspartate Amino Transferase 17 U/L (0-34); BUN/Creatinine Ratio 29 Ratio (12-20); Bilirubin,Total 0.5 mg/dL (0.3-1.2); Blood Urea Nitrogen 26 mg/dL (9-23); Calcium 8.8 mg/dL (8.3-10.6); Calcium (Corrected) 9.4 mg/dL (8.5-10.1); Carbon Dioxide 24.9 mMol/L (20.0-31.0); Chloride 108 mMol/L (98-107); Creatinine (Component) 0.9 mg/dL (0.6-1.3); Globulin 3.2 gm/dL (2.3-3.5); Glucose 168 mg/dL (74-106); Osmolality,Calculated 288 (275-295); Potassium 4.0 mMol/L (3.4-5.1); Sodium 140 mMol/L (136-145); Total Protein 6.5 gm/dL (5.7-8.2); eGFR > 60 See Note
[2024-12-06 18:53] LABS: Collection Type, Urine Clean Catch; Squamous Epithelial Cell,Urine 0 /hpf (0-5)
[2024-12-06 19:08] VITALS: BP 106/52; PULSE 55; RESP 14; TEMP 36.9; O2SAT 96
[2024-12-06 19:11] LABS: Bacteria,Urine Rare; Bilirubin,Urine Negative (Negative); Blood,Urine 3+ (Negative); Clarity,Urine Turbid (Clear/Hazy); Color,Urine Yellow (Lt Yel-Yel); Glucose, Urine Negative (Negative); Ketones,Urine Negative (Negative); Leukocyte Esterase,Urine Positive (Negative); Nitrite,Urine Negative (Negative); PH,Urine 6.5 (5.0-7.0); Protein,Urine 1+ (Neg - Trace); RBC,Urine 83 /hpf (0-3); Specific Gravity,Urine 1.024 (1.001-1.035); Urobilinogen,Urine Negative mg/dL (0.0-1.0); WBC,Urine 27 /hpf (0-5)
[2024-12-06 19:20] LABS: Culture Indicated,Urine Yes
[2024-12-06 20:47] LABS: Reflex Lactate? Y
[2024-12-06] MEDS: cefTRIAXone/D5w 1gm IV premix 1 GM/50 ML BAG IV (20:53)
[2024-12-06 20:58] LABS: Lactic Acid, 3 HR 1.4 mMol/L (0.4-2.0)
[2024-12-06 22:08] VITALS: BP 107/58; PULSE 62; RESP 18; TEMP 36.4; O2SAT 92
--- NOTE | 2024-12-06 22:31 | PC.NURSE ---
Report called to [facility], report received by JACKSON Batista
== END 2024-12-06 23:27 | disposition skilled nursing facility (03) ==
PROVIDERS: Nurse Practitioner Family; Emergency Provider Family Medicine; PCP Hospitalist
DX: T83.021A Displacement of indwelling urethral catheter, initial encounter (principal); N39.0 Urinary tract infection, site not specified; R05.9 Cough, unspecified; R09.89 Other specified symptoms and signs involving the circulatory and respiratory systems; R00.0 Tachycardia, unspecified; Y84.6 Urinary catheterization as the cause of abnormal reaction of the patient, or of later complication, without mention of misadventure at the time of the procedure; Y92.129 Unspecified place in nursing home as the place of occurrence of the external cause
CPT/HCPCS: 51702; 36415; 36600; 71045; 80053; 81001; 82803; 83605; 85025; 85730; 87040; 87077; 87086; 87186; 93005; 96360; 96361; 99283; J0696; J7030

== ENCOUNTER 2024-12-07 19:39 | Inpatient (IN) | payer OTHER, MEDICAID, MEDICARE, SELFPAY ==
[2024-12-07] VITALS (12 sets, daily range): BP systolic 93–131; BP diastolic 58–64; PULSE 72–127; RESP 22–28; TEMP 36.6–36.7; O2SAT 91–98; BMI 25.0
--- NOTE | 2024-12-07 19:46 | PD.EDSOB ---
ED SOB =RME/HPI General Chief Complaint: Shortness of Breath/Dyspnea Stated Complaint: SOB Time Seen by Provider: 12/07/24 20:03 Arrival date/time: 12/07/24 19:39 RME / HPI RME / HPI Narrative: This section includes all my notes and documentations, including HPI, PE, and ED course. 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 No other complaints. ROS: Can't obtain history from the patient due to possible aphasia from stroke. Physical Exam: General: Alert. In moderate respiratory distress. Hypoxia noted. Eyes: Conjunctivae and lids clear. ENT: No nasal congestion. Neck: Supple. Heart: Irregularly irregular (133 bpm). Lungs: Moderate respiratory distress. Moderately decreased air movement with wheezing and rales. Abdomen: Soft and nontender. Normal bowel sounds. No distension. No rebound or guarding. Skin: Warm and dry. I reviewed EMS and senior care notes. I reviewed all diagnostic test results: My interpretation of the EKG is: Atrial flutter versus fibrillation (133 bpm) with nonspecific ST-T changes. Leandro Tucker MD My interpretation of the chest x-ray is infiltrates. Blood tests remarkable for WBC 14.5, ESR 40, D-dimer 1670, Cr 1.8, LA 6.3, CRP 32, procalcitonin 4.29. UA showed positive leukocyte Estrace, 54 RBC, 98 WBC, and 4+ bacteria. Covid/Influenza: Negative. At this point, diagnoses include: Sepsis, UTI, Acute respiratory failure with hypoxia, Nursing-home acquired PNA, Atrial fibrillation with RVR. Treatment here included: IVF, cefepime, vancomycin, Solu-Medrol, Xopenex neb treatment, Cardizem bolus and drip. Some improvement noted. I discussed the case with our hospitalist. About the presentation and exam and diagnostics and treatments here. And need of further care in the hospital. Will accept the patient. Leandro Tucker MD Related Data Home Medications ?Medication ?Instructions ?Recorded ?Confirmed amlodipine 10 mg tablet 10 mg feeding tube QDAY 06/17/24 12/08/24 Held on 11/02/24. Instructions: BP stable while inpatient. Hold until follow-up with PCP, or can continue if BP elevated back at facility. apixaban 5 mg tablet (Eliquis) 5 mg feeding tube BID 06/17/24 12/08/24 atorvastatin 80 mg tablet (Lipitor) 40 mg feeding tube QDAY 06/17/24 12/08/24 docusate sodium 100 mg tablet 100 mg PO QDAY 06/17/24 12/08/24 famotidine 20 mg tablet 20 mg feeding tube QDAY 06/17/24 12/08/24 fenofibrate nanocrystallized 145 145 mg PO QDAY 06/17/24 12/08/24 mg tablet fluconazole 200 mg tablet 200 mg feeding tube QDAY 06/17/24 12/08/24 melatonin 3 mg tablet 3 mg PO HS PRN Insomnia 06/17/24 12/08/24 oxcarbazepine 300 mg tablet 300 mg feeding tube BID 06/17/24 12/08/24 doxazosin 1 mg tablet 1 mg PO QDAY 10/19/24 12/08/24 pregabalin 20 mg/mL oral solution 20 mg PO BID 10/19/24 12/08/24 lidocaine HCl 2 % mucosal solution 15 ml PO Q4HR PRN face pain from 10/31/24 12/08/24 (Lidocaine Viscous) trigeminal neuralgia tramadol 50 mg tablet 50 mg feeding tube Q6H PRN pain 10/31/24 12/08/24 aspirin 81 mg tablet 81 mg PO QDAY 12/08/24 12/08/24 cranberry 500 mg capsule 500 mg PO QDAY 12/08/24 12/08/24 ipratropium 0.5 mg-albuterol 3 mg 3 ml inhalation Q6H PRN shortness 12/08/24 12/08/24 (2.5 mg base)/3 mL nebulization of breath or wheezing soln multivit with minerals-iron 18 1 tab PO QDAY 12/08/24 12/08/24 mg-folic ac 400 mcg-vit K 25 mcg tablet (Adults Multivitamin) Previous Rx's ?Medication ?Instructions ?Recorded acetaminophen 325 mg/10.15 mL oral 650 mg (20.3 mL) G-tube Q6HR PRN 06/20/24 solution Pain 1-10 Or Fever > 100.4 #1,015 mL levofloxacin 250 mg/10 mL oral 500 mg (20 mL) PO Q24H 7 days #140 12/06/24 solution mL Allergies Allergy/AdvReac Type Severity Reaction Status Date / Time No Known Allergies Allergy Verified 12/07/24 20:10 Review of Systems Review of Systems Systems Reviewed: All systems reviewed, normal except as documented Past Medical History Past Medical History NEUROLOGIC: Positive Neurological Disorders and Cerebrovascular Accident (2x in 2023) CARDIAC: Positive Cardiac Disorders, Hypercholesterolemia and Hypertension RESPIRATORY: Positive Pneumonia and Pulmonary Embolism GASTROINTESTINAL: Positive Gastroesophageal Reflux Disease Surgical History SURGICAL: Positive Abdominal Surgery ED Exam Narrative Physical exam: Refer to HPI Course Quality Measures none Orders Category Date Time Status Bedside COVID-19 Antigen Test NOW Care 12/07/24 19:49 Active Bedside Influenza A&B Antigen Test NOW Care 12/07/24 19:49 Completed COVID-19 Screening Questionnaire NOW Care 12/07/24 21:[address] Screening NOW Care 12/07/24 19:50 Active 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 Q4H START 00 Care 12/07/24 20:52 Active Decision to Admit X1 Care 12/07/24 21:37 Completed EKG (ED ONLY) *Do not use* NOW Care 12/07/24 19:50 Completed Saline [Insert IV] NOW Care 12/07/24 19:50 Active EKG (ED Only) Stat Exams 12/07/24 19:50 Draft XR chest 1V portable Stat Exams 12/07/24 19:50 Completed ABG [Arterial Blood Gas] Stat Lab 12/07/24 20:42 Completed Amylase Stat Lab 12/07/24 20:20 Completed BNP [B-Type Natriuretic Peptide] Stat Lab 12/07/24 20:20 Completed Bilirubin,Direct Stat Lab 12/07/24 20:20 Completed Blood Culture (Lab) Stat Lab 12/07/24 20:49 Received CBC Stat Lab 12/07/24 20:20 Completed CMP [Comprehensive Metabolic Panel] Stat Lab 12/07/24 20:20 Completed CRP [C-Reactive Protein] Stat Lab 12/07/24 20:20 Completed D-Dimer Stat Lab 12/07/24 20:20 Completed ESR [Sed Rate (ESR)] Stat Lab 12/07/24 20:20 Completed Free T4 (Free Thyroxine) Stat Lab 12/07/24 20:20 Completed Lactate (Lactic Acid) Stat Lab 12/07/24 20:20 Completed Lipase Stat Lab 12/07/24 20:20 Completed Magnesium Stat Lab 12/07/24 20:20 Completed PT [Prothrombin Time with INR] Stat Lab 12/07/24 20:20 Completed PTT [Partial Thromboplastin Time] Stat Lab 12/07/24 20:20 Completed Procalcitonin Stat Lab 12/07/24 20:20 Completed TSH [Thyroid Stimulating Hormone] Stat Lab 12/07/24 20:20 Completed Troponin I Stat Lab 12/07/24 20:20 Completed UA, C/S IF [Urinalysis, C/S if Indicated] Stat Lab 12/07/24 20:20 Completed Urine Culture Stat Lab 12/07/24 20:20 Received Cefepime Inj [Maxipime Inj] 2 gm Med 12/07/24 20:56 Discontinued SODIUM CHLORIDE 0.9% (Popper) [Ns 0.9% (P)] 50 ml IV X1 DILTIAZEM in D5W 125 MG Med 12/07/24 20:15 Active 125 mg in 125 ml IV 5 mg/hr Diltiazem Inj [Cardizem Inj] Med 12/07/24 20:15 Discontinued 20 mg IV X1 ONE Levalbuterol Rt [Xopenex Rt Gisele] Med 12/07/24 19:50 Discontinued 2.5 mg INH X1 ONE MethylPREDNISolone.* [SoluMEDROL Inj] Med 12/07/24 19:50 Discontinued 125 mg IVP X1 ONE Sodium Chloride 0.9% 1000 ml [Ns] 1,000 ml Med 12/07/24 21:29 Discontinued IV 999 mls/hr Sodium Chloride 0.9% 1000 ml [Ns] 1,000 ml Med 12/07/24 21:29 Discontinued IV 999 mls/hr Sodium Chloride Rt Gisele 0.9% [NS Rt Gisele 0.9%] Med 12/07/24 19:50 Active 3 ml INH PRN PRN Vancomycin/Ns 1 gm Ivpb 400 ml Med 12/07/24 20:56 Discontinued IV X1 Vital Signs Vital signs: Vital Signs Temperature 98.0 F 12/07/24 20:33 Pulse Rate 127 H 12/07/24 20:33 Respiratory Rate 27 H 12/07/24 20:33 Blood Pressure 93/58 L 12/07/24 20:33 Pulse Oximetry (%) 93 L 12/07/24 20:33 Oxygen Delivery Method Nasal Cannula 12/07/24 20:33 Shortness of Breath / Dyspnea MDM Narrative MDM Narrative:: Scribe Attestation: I, Margie Marr, am scribing for and in the presence of Dr. Tucker. Provider Notation: Although this document has been carefully reviewed, there may still be some phonetic and other typographical errors.? These errors are purely grammatical due to imperfections in the software program and should not be construed in any way to? compromise the substance of the patient's medical care during this visit. 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 No other complaints. Patient data External records reviewed:: [facility] previous records (Reviewed prior ED records from 12/06/24. Patient was seen for Dislodged Huynh catheter.), EMS form and [facility] records Clinical information provided by:: EMS Social determinants that could affect healthcare access:: housing (SNF) Patient has the following chronic illnesses:: Cerebrovascular Accident, Hypercholesterolemia, Hypertension, Pneumonia, Pulmonary Embolism, Gastroesophageal Reflux Disease How is presenting disease/condition affected by chronic disease/condition?: exacerbated by Evaluation data The following diagnostics were reviewed and interpreted by me:: lab results, radiology exam(s) and EKG tracing(s) (My interpretation of the EKG is: Atrial flutter versus fibrillation (133 bpm) with nonspecific ST-T changes. Leandro Tucker MD) Lab and/or radiology exams considered but not ordered:: None Interpretation Summary: I reviewed all diagnostic test results: My interpretation of the EKG is: Atrial flutter versus fibrillation (133 bpm) with nonspecific ST-T changes. Leandro Tucker MD My interpretation of the chest x-ray is infiltrates. Blood tests remarkable for WBC 14.5, ESR 40, D-dimer 1670, Cr 1.8, LA 6.3, CRP 32, procalcitonin 4.29. UA showed positive leukocyte Estrace, 54 RBC, 98 WBC, and 4+ bacteria. Covid/Influenza: Negative. Medications / Prescriptions Medications or Prescriptions considered but not ordered:: None Medication administrations:: Medication Administration History Acetaminophen (Acetaminophen Gisele 325 Mg/10 Ml Udc) 650 mg GT Q4HR PRN PRN Reason: Pain Or Fever > 100 Stop: 01/06/25 22:26 Acetylcysteine (Acetylcysteine Rt Gisele 10% 4 Ml Nebu) 4 ml INH Q6HRRT RE Stop: 01/07/25 00:59 Last Admin: 12/08/24 01:06 Dose: 4 ml Documented By: ARTURO Atorvastatin Calcium (Atorvastatin Calcium 20 Mg Tablet) 40 mg GT HS RE Stop: 01/07/25 20:59 Heparin Sodium (Porcine) (Heparin Sod Inj 5000 Unit/Ml Vial) 5,000 unit SC BID RE Stop: 12/21/24 22:29 Last Admin: 12/07/24 23:07 Dose: 5,000 unit Documented By: BD Co-signed By: DT Diltiazem HCl (Diltiazem In D5w 125 Mg) 125 mg in 125 mls @ 5 mls/hr IV .Q24H RE Stop: 01/06/25 20:14 Last Admin: 12/07/24 20:56 Dose: 5 mg/hr, 5 mls/hr Documented By: BD Piperacillin Sod/Tazobactam (Sod 4.5 gm/ Sodium Chloride) 100 mls @ 200 mls/hr IV Q6HR RE Stop: 12/15/24 05:59 Doxycycline Hyclate 100 mg/ (Sodium Chloride) 100 mls @ 100 mls/hr IV BID RE Stop: 12/15/24 08:59 Piperacillin Sod/Tazobactam (Sod 4.5 gm/ Sodium Chloride) 100 mls @ 200 mls/hr IV X1 ONE Stop: 12/08/24 06:14 Levalbuterol HCl (Levalbuterol Rt 1.25 Mg/0.5 Ml Nebu) 1.25 mg INH Q6HRRT RE Stop: 01/07/25 00:59 Last Admin: 12/08/24 01:06 Dose: 1.25 mg Documented By: ARTURO Ondansetron HCl (Ondansetron Inj 2 Mg/Ml Inj 2 Ml) 4 mg IVP Q6H PRN; Protocol PRN Reason: NAUSEA OR VOMITING Stop: 01/06/25 22:11 Sodium Chloride (Sodium Chloride Rt Gisele 0.9% 3 Ml Nebu) 3 ml INH PRN PRN PRN Reason: SOLN Stop: 01/06/25 19:49 Last Admin: 12/07/24 20:45 Dose: 3 ml Documented By: ARTURO Sodium Chloride (Sodium Chloride Rt Gisele 0.9% 3 Ml Nebu) 3 ml INH PRN PRN PRN Reason: SOLN Stop: 01/06/25 22:11 Discontinued Medications Diltiazem HCl (Diltiazem Inj 5 Mg/Ml Vial 5 Ml) 20 mg IV X1 ONE Stop: 12/07/24 20:16 Last Admin: 12/07/24 20:55 Dose: 20 mg Documented By: BD Cefepime HCl 2 gm/ Sodium (Chloride) 50 mls @ 100 mls/hr IV X1 ONE Stop: 12/07/24 21:25 Last Infusion: 12/07/24 22:52 Dose: Infused Documented By: Admin: 12/07/24 21:32 Dose: 100 mls/hr Documented By: BD Vancomycin/Sodium Chloride (Vancomycin/Ns 1 Gm Ivpb) 400 mls @ 120 mls/hr IV X1 ONE Stop: 12/08/24 00:15 Last Admin: 12/07/24 22:41 Dose: Not Given Documented By: BD Non-Admin Reason: Other, see note Sodium Chloride (Ns) 1,000 mls @ 999 mls/hr IV .Q1H1M ONE Stop: 12/07/24 22:29 Last Infusion: 12/07/24 23:58 Dose: Infused Documented By: Admin: 12/07/24 22:32 Dose: 999 mls/hr Documented By: BD Sodium Chloride (Ns) 1,000 mls @ 999 mls/hr IV .Q1H1M ONE Stop: 12/07/24 22:29 Last Infusion: 12/07/24 23:58 Dose: Infused Documented By: Admin: 12/07/24 22:33 Dose: 999 mls/hr Documented By: BD Vancomycin/Sodium Chloride (Vancomycin/Ns 1 Gm Ivpb) 200 mls @ 60 mls/hr IV X1 ONE Stop: 12/08/24 00:15 Last Infusion: 12/08/24 02:01 Dose: Infused Documented By: Admin: 12/07/24 22:32 Dose: 60 mls/hr Documented By: BD Piperacillin Sod/Tazobactam (Sod 3.375 gm/ Sodium Chloride) 100 mls @ 200 mls/hr IV X1 RE; Protocol Stop: 12/15/24 03:59 Levalbuterol HCl (Levalbuterol Rt 1.25 Mg/0.5 Ml Nebu) 2.5 mg INH X1 ONE Stop: 12/07/24 19:51 Last Admin: 12/07/24 20:45 Dose: 1.25 mg Documented By: Admin: 12/07/24 20:45 Dose: 1.25 mg Documented By: DM Methylprednisolone Sodium Succinate (Methylprednisolone Sod Succ 62.5 Mg/Ml 2ml Vial) 125 mg IVP X1 ONE Stop: 12/07/24 19:51 Last Admin: 12/07/24 20:55 Dose: 125 mg Documented By: BD Sodium Chloride (Sodium Chloride Rt 10% 15 Ml Nebu) 5 ml INH X1 ONE Stop: 12/08/24 05:08 Treatment here included: IVF, cefepime, vancomycin, Solu-Medrol, Xopenex neb treatment, Cardizem bolus and drip. Consultations Consultation(s) initiated? (list below): Yes Consultation #1 (Physician, Specialty, Details): I discussed the case with our hospitalist. About the presentation and exam and diagnostics and treatments here. And need of further care in the hospital. Will accept the patient. Diagnosis Shortness of Breath Differential Diagnosis: congestive heart failure, community acquired pneumonia and pulmonary embolism Most likely diagnosis given after review of the tests above:: Sepsis, UTI, Acute respiratory failure with hypoxia, Nursing-home acquired PNA, Atrial fibrillation with RvR. Admission Indicated Admission indicated?: indicated Explain why admission is indicated or not indicated:: Sepsis, UTI, Acute respiratory failure with hypoxia, Nursing-home acquired PNA, Atrial fibrillation with RvR. Admission Request Was there a request for admission?: Yes Admission Attestation Admission request attestation: Discussed case with Hospitalist service regarding admission. Discussed patients ED course, exam findings, labs, and radiology results. The Hospitalist [agrees] to accept the patient for admission. Disposition Plan Disposition Plan: Admit Critical Care Time Critical Care Time Critical Care Time: Yes Total Critical Care Time (min.): 36 Attestation: I discussed the case with our hospitalist. About the presentation and exam and diagnostics and treatments here. And need of further care in the hospital. Will accept the patient. Discharge Plan Plan Patient Disposition: Admit Acute Care w/in Hospital Problem List Clinical Impression: Sepsis, UTI (urinary tract infection), Acute respiratory failure with hypoxia, snf-acquired pneumonia, Atrial fibrillation with RVR
--- NOTE | 2024-12-07 19:50 | EKG_ITS ---
[facility] Test Date: 2024-12-07 Pat Name: ARELY PAL Department: Room: - Gender: Male [place]: : [id number] Requested By: Leandro Sharif Order Number: [id number] Reading MD: Leandro Sharif Measurements Intervals [place] Rate: 133 P: IA: QRS: -39 QRSD: 97 T: 75 QT: 339 QTc: 505 Interpretive Statements ATRIAL FLUTTER/TACHYCARDIA WITH RAPID VENTRICULAR RESPONSE Compared to ECG 12/06/2024 17:20:12 Sinus tachycardia no longer present /store/S0/[id number].pdf
--- NOTE | 2024-12-07 19:50 | XR_ITS ---
Examination: AP chest single view. TECHNIQUE: AP portable semiupright chest single view. Date and time: December 07, 2024, 2013 hours Comparison December 06, 2024 INDICATIONS: Shortness chest pain today. FINDINGS: Bilateral perihilar pneumonia. Normal heart size The osseous structures are intact IMPRESSION: Bilateral perihilar pneumonia
[2024-12-07 20:34] LABS: Collection Type, Urine Clean Catch; Squamous Epithelial Cell,Urine 0 /hpf (0-5)
[2024-12-07 20:35] LABS: Basophils # (Auto) 0.0 Thou/mm3 (0.0-0.2); Basophils % (Auto) 0 % (0-2.5); Eosinophils # (Auto) 0.0 Thou/mm3 (0.0-0.5); Eosinophils % (Auto) 0 % (0-10); Hematocrit 35.2 % (41.0-53.0); Hemoglobin 12.2 g/dL (13.5-16.0); Immature Granulocytes Auto 0.04 Thou/mm3 (0.00-0.00); Lymphocytes # (Auto) 0.7 Thou/mm3 (1.0-4.8); Lymphocytes % (Auto) 5 % (10-50); Mean Corpuscular HGB Conc 34.7 g/dl (31.0-37.0); Mean Corpuscular Hemoglobin 31.1 pg (25.0-35.0); Mean Corpuscular Volume 90 fL (80-100); Monocytes # (Auto) 0.8 Thou/mm3 (0.0-0.8); Monocytes % (Auto) 5 % (0-12); Neutrophils # (Auto) 13.0 Thou/mm3 (1.8-7.7); Neutrophils % (Auto) 90 % (37-80); Nucleated Red Blood Cell # 0.00 Thou/mm3 (0.00-0.00); Nucleated Red Blood Cell % 0 /100 WBC (0); Platelet Count 340 Thou/mm3 (140-440); RDW Standard Deviation 49.5 fL (35.1-43.9); Red Blood Count 3.92 Miln/mm3 (4.50-5.90); White Blood Count 14.5 Thou/mm3 (3.8-10.6)
[2024-12-07 20:36] LABS: Lactate (Lactic Acid) 6.3 mMol/L (0.4-2.0)
[2024-12-07] MEDS: LEVALBUTEROL RT 1.25 MG/0.5 ML NEBU 2.5 MG INH ×2 (20:45)
[2024-12-07] MEDS: SODIUM CHLORIDE RT SOL 0.9% 3 ML NEBU INH (20:45)
[2024-12-07 20:49] LABS: Base Excess -3 (-3-3); HCO3 21 mEq/L (20-26); Inspired O2, VO2 Liters 4 L/min; Inspired Oxygen, FIO2 21 %; O2 Saturation 95 % (91-98); PCO2 31 mmHg (32.0-48.0); PO2 68 mmHg (83-108); pH, Arterial 7.44 (7.35-7.45)
[2024-12-07 20:54] LABS: Allen Test Performed/OK; Puncture Site Left Radial
[2024-12-07] MEDS: DILTIAZEM INJ 5 MG/ML VIAL 5 ML 20 MG IV (20:55)
[2024-12-07] MEDS: MethylPREDNISolone SOD SUCC 62.5 MG/ML 2ML VIAL 125 MG IVP (20:55)
[2024-12-07] MEDS: DILTIAZEM in D5W 125 MG 125 MG/125 ML BAG IV (20:56)
[2024-12-07 21:03] LABS: INR 1.3 (0.9-1.3); Partial Thromboplastin Time 30.5 Seconds (22.0-36.0); Prothrombin Time 13.6 Seconds (9.0-12.2)
[2024-12-07 21:11] LABS: D-Dimer 1670 ng/mL (<600)
[2024-12-07 21:14] LABS: B-Type Natriuretic Peptide 96 pg/mL (0-100)
[2024-12-07 21:18] LABS: Bacteria,Urine 4+; Bilirubin,Urine Negative (Negative); Blood,Urine 3+ (Negative); Clarity,Urine Turbid (Clear/Hazy); Color,Urine Drk-Yellow (Lt Yel-Yel); Glucose, Urine Negative (Negative); Hyaline Casts,Urine 1 /hpf (0-1); Ketones,Urine Trace (Negative); Leukocyte Esterase,Urine Positive (Negative); Nitrite,Urine Negative (Negative); PH,Urine 6.0 (5.0-7.0); Protein,Urine 2+ (Neg - Trace); RBC,Urine 54 /hpf (0-3); Specific Gravity,Urine 1.034 (1.001-1.035); Urobilinogen,Urine 2.0 mg/dL (0.0-1.0); WBC,Urine 98 /hpf (0-5)
[2024-12-07 21:25] LABS: Culture Indicated,Urine Yes
[2024-12-07] MEDS: CEFEPIME INJ 2 GM in SODIUM CHLORIDE 0.9% (Popper) 50 ML IV (21:32)
[2024-12-07 22:31] LABS: Alanine Aminotransferase 12 U/L (10-49); Albumin, Serum 3.5 gm/dL (3.4-4.8); Albumin/Globulin Ratio 1.2 (1.2-2.2); Alkaline Phosphatase 50 U/L (46-116); Anion Gap 14 (7-16); Aspartate Amino Transferase 24 U/L (0-34); BUN/Creatinine Ratio 27 Ratio (12-20); Bilirubin,Direct 0.2 mg/dL (0.0-0.3); Bilirubin,Total 0.4 mg/dL (0.3-1.2); Blood Urea Nitrogen 49 mg/dL (9-23); Calcium 9.6 mg/dL (8.3-10.6); Calcium (Corrected) 10.0 mg/dL (8.5-10.1); Carbon Dioxide 22.4 mMol/L (20.0-31.0); Chloride 107 mMol/L (98-107); Creatinine (Component) 1.8 mg/dL (0.6-1.3); Estimated Creatinine Clearance 30.5 mL/min (>60); Free T4 (Free Thyroxine) 0.68 ng/dL (0.89-1.76); Globulin 2.9 gm/dL (2.3-3.5); Glucose 212 mg/dL (74-106); Lipase 20 U/L (12-53); Magnesium 2.6 mg/dL (1.6-2.6); Osmolality,Calculated 303 (275-295); Potassium 4.0 mMol/L (3.4-5.1); Procalcitonin 4.29 ng/ml (0.0-0.49); Sodium 143 mMol/L (136-145); Thyroid Stimulating Hormone 2.77 uIU/mL (0.55-4.78); Total Protein 6.4 gm/dL (5.7-8.2); Troponin I < 0.020 ng/mL (0.0-0.045); eGFR 38 See Note
[2024-12-07] MEDS: VANCOMYCIN/NS 1 GM IVPB 200 ML IV (22:32)
[2024-12-07] MEDS: SODIUM CHLORIDE 0.9% 1000 ML 1,000 ML 999 ML IV ×2 (22:32→22:33)
[2024-12-07 22:42] LABS: Sed Rate (ESR) 40 mm/hr (0-20)
[2024-12-07] MEDS: HEPARIN SOD INJ 5000 UNIT/ML VIAL SC (23:07)
[2024-12-07 23:09] LABS: Amylase 83 U/L (30-118); C-Reactive Protein 32.0 mg/dL (0.0-0.9)
[2024-12-07 23:30] LABS: Reflex Lactate? Y
[2024-12-07 23:58] LABS: Lactic Acid, 3 HR 5.8 mMol/L (0.4-2.0)
[2024-12-08] VITALS (13 sets, daily range): BP systolic 99–143; BP diastolic 56–69; PULSE 70–91; RESP 14–25; TEMP 35.9–36.9; O2SAT 80–100; BMI 25.7; BMI 25.5
--- NOTE | 2024-12-08 00:22 | PD.RESHP ---
Documentation for date of: 12/08/24 HPI History of Present Illness Chief complaint: Shortness of Breath/Dyspnea History of present illness: Patient nonverbal at baseline. History obtained from chart review. 79 year-old male with past medical history of CVA with residual right-sided deficits, aphasia, dysphagia status post PEG tube, pulmonary embolism on Eliquis, GERD, hypertension, hyperlipidemia, recurrent pneumonia was brought in by ambulance from [facility] due to shortness of breath. Patient was given 2 Albuterol treatments en route. On arrival, patient's O2 sats in the 80%. ' Patient was admitted on 10/30/2024 for acute hypoxic respiratory failure likely secondary to pneumonia and was treated with cefepime and doxycycline. ED Course - Vitals: T 98.0F, HR 127, RR 27, BP 93/58, O2 sat 93% nasal cannula - Labs: WBC 14.5, Hgb 12.2, ABG showed pH 7.44, pCO2 31, PO2 68, lactic acid 6.3, D-dimer 1670, UA showed 2+ urine protein, 3+urine blood, 4+ urine bacteria - Imaging: EKG showed atrial flutter/tachycardia with rapid ventricular response; Chest x-ray showed bilateral perihilar pneumonia; - Treatment: IV fluids, Vancomycin 1 G, Dilitiazem in D5W 125 mg, Maxipime 2 G, Cardizem IM 20 mg, Xopenex 2.5 mg, SoluMedrol 2.5 mg Review of Systems Review of Systems ROS Unobtainable: other (Patient nonverbal at baseline) Past Medical History Past Medical History Comments PMH COMMENT: All obtained per chart review Past Medical History: Cerebrovascular Accident (2x in 2023), Hypercholesterolemia, Hypertension, Pulmonary Embolism, GERD Family History: non contributory Surgical History: PEG tube Social History: Denies history of smoking, denies current alcohol use, denies recreational drug use, Allergies: No known drug allergies Exam Vital Signs Temp Pulse Resp BP Pulse Ox O2 Del Method O2 Flow Rate 97.9 F 72 22 H 125/60 98 Nasal Cannula 3 12/07/24 22:51 12/07/24 23:04 12/07/24 23:04 12/07/24 22:51 12/07/24 23:04 12/07/24 22:51 12/07/24 23:04 Narrative Exam Physical Exam General: solmnolent HEENT: Normocephalic, atraumatic, mucous membranes moist. Heart: Regular rate and rhythm, normal S1 and S2, no murmurs. Lungs: No accessory muscle use. bilateral coarse crackles Abdomen: Soft, nondistended, nontender, positive bowel sounds. No guarding or rebound tenderness. : diaper with Neurologic: Alert and oriented x1, no gross neurological deficit, R sided facial droop and hemiplegia Extremities: No edema. Skin: No rash, no lesions Results: Labs 12/08/24 05:45 12/07/24 20:20 Labs: Short CBC 12/07/24 Range/Units 20:20 WBC 14.5 H (3.8-10.6) Thou/mm3 Hgb 12.2 L (13.5-16.0) g/dL Hct 35.2 L (41.0-53.0) % Plt Count 340 D (140-440) Thou/mm3 BMP 12/07/24 20:20 Sodium 143 Potassium 4.0 Chloride 107 Carbon Dioxide 22.4 BUN 49 H Creatinine 1.8 H D Glucose 212 H Calcium 9.6 Cardiac Enzymes 12/07/24 Range/Units 20:20 Troponin I < 0.020 (0.0-0.045) ng/mL Liver Function 12/07/24 Range/Units 20:20 Total Bilirubin 0.4 (0.3-1.2) mg/dL Direct Bilirubin 0.2 (0.0-0.3) mg/dL AST 24 (0-34) U/L ALT 12 (10-49) U/L Alkaline Phosphatase 50 (46-116) U/L Albumin 3.5 (3.4-4.8) gm/dL Urine 12/07/24 Range/Units 20:20 Urine Color Drk-Yellow A (Lt Yel-Yel) Urine Clarity Turbid A (Clear/Hazy) Urine pH 6.0 (5.0-7.0) Ur Specific [place] 1.034 (1.001-1.035) Urine Protein 2+ A (Neg - Trace) Urine Glucose (UA) Negative (Negative) ABG Interpretation ABG results: 12/07/24 20:42 ABG pH 7.44 ABG pCO2 31 L ABG pO2 68 L ABG HCO3 21 ABG O2 Saturation 95 ABG Base Excess -3 Quality Measures Quality Measures none Advance care planning discussed with:: other (Family not present for discussion, information obtained from chart review. ) Medications Home Medications and Allergies Home Medications ?Medication ?Instructions ?Recorded ?Confirmed ?Type amlodipine 10 mg tablet 10 mg feeding tube QDAY 06/17/24 12/08/24 History Held on 11/02/24. Instructions: BP stable while inpatient. Hold until follow-up with PCP, or can continue if BP elevated back at facility. apixaban 5 mg tablet (Eliquis) 5 mg feeding tube BID 06/17/24 12/08/24 History atorvastatin 80 mg tablet (Lipitor) 40 mg feeding tube QDAY 06/17/24 12/08/24 History docusate sodium 100 mg tablet 100 mg PO QDAY 06/17/24 12/08/24 History famotidine 20 mg tablet 20 mg feeding tube QDAY 06/17/24 12/08/24 History fenofibrate nanocrystallized 145 145 mg PO QDAY 06/17/24 12/08/24 History mg tablet fluconazole 200 mg tablet 200 mg feeding tube QDAY 06/17/24 12/08/24 History melatonin 3 mg tablet 3 mg PO HS PRN Insomnia 06/17/24 12/08/24 History oxcarbazepine 300 mg tablet 300 mg feeding tube BID 06/17/24 12/08/24 History doxazosin 1 mg tablet 1 mg PO QDAY 10/19/24 12/08/24 History pregabalin 20 mg/mL oral solution 20 mg PO BID 10/19/24 12/08/24 History lidocaine HCl 2 % mucosal solution 15 ml PO Q4HR PRN face pain from 10/31/24 12/08/24 History (Lidocaine Viscous) trigeminal neuralgia tramadol 50 mg tablet 50 mg feeding tube Q6H PRN pain 10/31/24 12/08/24 History aspirin 81 mg tablet 81 mg PO QDAY 12/08/24 12/08/24 History cranberry 500 mg capsule 500 mg PO QDAY 12/08/24 12/08/24 History ipratropium 0.5 mg-albuterol 3 mg 3 ml inhalation Q6H PRN shortness 12/08/24 12/08/24 History (2.5 mg base)/3 mL nebulization of breath or wheezing soln multivit with minerals-iron 18 1 tab PO QDAY 12/08/24 12/08/24 History mg-folic ac 400 mcg-vit K 25 mcg tablet (Adults Multivitamin) Allergies Allergy/AdvReac Type Severity Reaction Status Date / Time No Known Allergies Allergy Verified 12/07/24 20:10 Visit Medications Acetaminophen (Acetaminophen Gisele 325 Mg/10 Ml Udc) 650 mg GT Q4HR PRN PRN Reason: Pain Or Fever > 100 Stop: 01/06/25 22:26 Acetylcysteine (Acetylcysteine Rt Gisele 10% 4 Ml Nebu) 4 ml INH Q6HRRT RE Stop: 01/07/25 00:59 Atorvastatin Calcium (Atorvastatin Calcium 20 Mg Tablet) 40 mg GT HS RE Stop: 01/07/25 20:59 Heparin Sodium (Porcine) (Heparin Sod Inj 5000 Unit/Ml Vial) 5,000 unit SC BID RE Stop: 12/21/24 22:29 Last Admin: 12/07/24 23:07 Dose: 5,000 unit Diltiazem HCl (Diltiazem In D5w 125 Mg) 125 mg in 125 mls @ 5 mls/hr IV .Q24H RE Stop: 01/06/25 20:14 Last Admin: 12/07/24 20:56 Dose: 5 mg/hr, 5 mls/hr Piperacillin Sod/Tazobactam (Sod 4.5 gm/ Sodium Chloride) 100 mls @ 200 mls/hr IV Q6HR RE Stop: 12/15/24 05:59 Doxycycline Hyclate 100 mg/ (Sodium Chloride) 100 mls @ 100 mls/hr IV BID RE Stop: 12/15/24 08:59 Levalbuterol HCl (Levalbuterol Rt 1.25 Mg/0.5 Ml Nebu) 1.25 mg INH Q6HRRT RE Stop: 01/07/25 00:59 Ondansetron HCl (Ondansetron Inj 2 Mg/Ml Inj 2 Ml) 4 mg IVP Q6H PRN; Protocol PRN Reason: NAUSEA OR VOMITING Stop: 01/06/25 22:11 Sodium Chloride (Sodium Chloride Rt Gisele 0.9% 3 Ml Nebu) 3 ml INH PRN PRN PRN Reason: SOLN Stop: 01/06/25 19:49 Last Admin: 12/07/24 20:45 Dose: 3 ml Sodium Chloride (Sodium Chloride Rt Gisele 0.9% 3 Ml Nebu) 3 ml INH PRN PRN PRN Reason: SOLN Stop: 01/06/25 22:11 Discontinued Medications Diltiazem HCl (Diltiazem Inj 5 Mg/Ml Vial 5 Ml) 20 mg IV X1 ONE Stop: 12/07/24 20:16 Last Admin: 12/07/24 20:55 Dose: 20 mg Cefepime HCl 2 gm/ Sodium (Chloride) 50 mls @ 100 mls/hr IV X1 ONE Stop: 12/07/24 21:25 Last Infusion: 12/07/24 22:52 Dose: Infused Vancomycin/Sodium Chloride (Vancomycin/Ns 1 Gm Ivpb) 400 mls @ 120 mls/hr IV X1 ONE Stop: 12/08/24 00:15 Last Admin: 12/07/24 22:41 Dose: Not Given Sodium Chloride (Ns) 1,000 mls @ 999 mls/hr IV .Q1H1M ONE Stop: 12/07/24 22:29 Last Infusion: 12/07/24 23:58 Dose: Infused Sodium Chloride (Ns) 1,000 mls @ 999 mls/hr IV .Q1H1M ONE Stop: 12/07/24 22:29 Last Infusion: 12/07/24 23:58 Dose: Infused Vancomycin/Sodium Chloride (Vancomycin/Ns 1 Gm Ivpb) 200 mls @ 60 mls/hr IV X1 ONE Stop: 12/08/24 00:15 Last Admin: 12/07/24 22:32 Dose: 60 mls/hr Levalbuterol HCl (Levalbuterol Rt 1.25 Mg/0.5 Ml Nebu) 2.5 mg INH X1 ONE Stop: 12/07/24 19:51 Last Admin: 12/07/24 20:45 Dose: 1.25 mg Methylprednisolone Sodium Succinate (Methylprednisolone Sod Succ 62.5 Mg/Ml 2ml Vial) 125 mg IVP X1 ONE Stop: 12/07/24 19:51 Last Admin: 12/07/24 20:55 Dose: 125 mg Assessment & Plan Plan 79-year-old male with past medical history of CVA with residual right-sided deficits, aphasia, and dysphagia s/p PEG tube, PE on Eliquis, cocci, GERD, hypertension, hyperlipidemia, and recurrent admissions for pneumonia was admitted bilateral perihilar pneumonia and atrial flutter/tachycardia with rapid ventricular response. #Septic shock, likely secondary to hospital acquired pneumonia # Underlying CVA - hemiplegia and dysphasia Patient came in with shortness of breath and was found to be desaturating to 80s Patient was recently discharged on the hospital on 11/02/2024 - suspicion for possible hospital-acquired pneumonia. Patient's lactic acid was 6.3 and downtrending 5.8, WBC 15.1 --> 14.5, procalcitonin 4.29, C-reactive prot. 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 - UA showed 2+ urine protein, 3+urine blood, 4+ urine bacteria - Previous urine culture (10/31/24) showed no growth - Patient is not presenting with any systemic symptoms, no fever - Leukocytosis and blood in urine likely due to chronic indwelling verma Chronic diseases: #Hx of CVA with residual right-sided deficits including aphasia, dysphagia s/p PEG tube #Hx of PE on Eliquis #Hx of cocci #Hx of GERD #Hx of hypertension #Hx of hyperlipidemia Health Maintenance Deposition: Patient admitted to med surg DVT prophylaxis: heparin 5000 unit SC BID GI prophylaxis: not indicated Diet: NPO Verma: present Lines: Peripheral IV CODE STATUS: Limited, no chest compressions, okay with intubation as per previous admission Patient plan of care was discussed with the senior resident, Dr. Caro, and attending physician, Dr. Pulido. Cliff Riggs DO PGY-1 Attending Provider Attestation/Addendum 79-year-old male patient was admitted for acute hypoxic respiratory failure patient has had previous. Patient appears very congested. Probably has aspiration pneumonia. He also probably has acute CHF. I do not think he can tolerate a lot of fluids. Continue to monitor respiratory status. Keep oxygen sat above 92. Discuss goals of care with family. Plan of care as above. Discussed with housestaff
[2024-12-08] MEDS: ACETYLCYSTEINE RT SOL 10% 4 ML NEBU INH ×4 (01:06→19:07)
[2024-12-08] MEDS: LEVALBUTEROL RT 1.25 MG/0.5 ML NEBU INH ×4 (01:06→19:07)
--- NOTE | 2024-12-08 05:32 | PC.NURSE ---
RT Worley made aware of sputum induction for sputum collection, just put the order in.
[2024-12-08] MEDS: PIPER/TAZO INJ 4.5 GM in SODIUM CHLORIDE 0.9% (POP) 100 ML IV (05:49)
[2024-12-08 06:08] LABS: Basophils # (Auto) 0.0 Thou/mm3 (0.0-0.2); Basophils % (Auto) 0 % (0-2.5); Eosinophils # (Auto) 0.0 Thou/mm3 (0.0-0.5); Eosinophils % (Auto) 0 % (0-10); Hematocrit 31.4 % (41.0-53.0); Hemoglobin 10.7 g/dL (13.5-16.0); Immature Granulocytes Auto 0.04 Thou/mm3 (0.00-0.00); Lymphocytes # (Auto) 0.6 Thou/mm3 (1.0-4.8); Lymphocytes % (Auto) 5 % (10-50); Mean Corpuscular HGB Conc 34.1 g/dl (31.0-37.0); Mean Corpuscular Hemoglobin 30.9 pg (25.0-35.0); Mean Corpuscular Volume 91 fL (80-100); Monocytes # (Auto) 0.5 Thou/mm3 (0.0-0.8); Monocytes % (Auto) 4 % (0-12); Neutrophils # (Auto) 11.2 Thou/mm3 (1.8-7.7); Neutrophils % (Auto) 91 % (37-80); Nucleated Red Blood Cell # 0.00 Thou/mm3 (0.00-0.00); Nucleated Red Blood Cell % 0 /100 WBC (0); Platelet Count 271 Thou/mm3 (140-440); RDW Standard Deviation 50.9 fL (35.1-43.9); Red Blood Count 3.46 Miln/mm3 (4.50-5.90); White Blood Count 12.4 Thou/mm3 (3.8-10.6)
[2024-12-08 06:52] LABS: Alanine Aminotransferase 9 U/L (10-49); Albumin, Serum 3.1 gm/dL (3.4-4.8); Albumin/Globulin Ratio 1.0 (1.2-2.2); Alkaline Phosphatase 41 U/L (46-116); Anion Gap 13 (7-16); Aspartate Amino Transferase 23 U/L (0-34); BUN/Creatinine Ratio 28 Ratio (12-20); Bilirubin,Total 0.3 mg/dL (0.3-1.2); Blood Urea Nitrogen 51 mg/dL (9-23); Calcium 8.7 mg/dL (8.3-10.6); Calcium (Corrected) 9.4 mg/dL (8.5-10.1); Carbon Dioxide 22.0 mMol/L (20.0-31.0); Chloride 110 mMol/L (98-107); Creatinine (Component) 1.8 mg/dL (0.6-1.3); Estimated Creatinine Clearance 30.5 mL/min (>60); Globulin 3.1 gm/dL (2.3-3.5); Glucose 232 mg/dL (74-106); Magnesium 2.1 mg/dL (1.6-2.6); Osmolality,Calculated 309 (275-295); Phosphorous 4.0 mg/dL (2.4-5.1); Potassium 4.0 mMol/L (3.4-5.1); Sodium 145 mMol/L (136-145); Total Protein 6.2 gm/dL (5.7-8.2); eGFR 38 See Note
--- NOTE | 2024-12-08 07:11 | XR_ITS ---
Examination: AP chest single view Technique one AP portable upright chest single view Date and time: December 08, 2024, 0744 hrs. Comparison June 09, 2024. Indications: History pneumonia this week. Findings: Mild bilateral perihilar pneumonia. Mild enlargement cardiac contour. Mild vascular congestion. Impression: Mild bilateral perihilar pneumonia.
[2024-12-08] MEDS: RINGERS LACTATED 1000 ML 1,000 ML 999 ML IV (07:23)
[2024-12-08 07:32] LABS: Base Excess -1 (-3-3); HCO3 22 mEq/L (20-26); Inspired O2, VO2 Liters 15 L/min; Inspired Oxygen, FIO2 1 %; O2 Saturation 98 % (91-98); PCO2 33 mmHg (32.0-48.0); PO2 88 mmHg (83-108); pH, Arterial 7.44 (7.35-7.45)
[2024-12-08 07:33] LABS: Allen Test Not Performed; Puncture Site Site Not Noted
[2024-12-08 08:05] LABS: Lactate (Lactic Acid) 3.3 mMol/L (0.4-2.0)
[2024-12-08 08:36] LABS: B-Type Natriuretic Peptide 53 pg/mL (0-100)
--- NOTE | 2024-12-08 08:37 | EVENTNT_ITS ---
Documentation for date of: 12/08/24 Event Note Event Note: Rapid response called for hypotension. At 07:30 AM, patient noted to have BP 99/66 and then 100/53. Remained somnolent and at baseline. No new focal findings or signs of pain/distress. Patient was given 1L lactated ringers IV bolus. BP improved to 112/65. HR remained in the 90s on diltiazem drip. Workup Ordered: * Repeat lactate --> 3.3 (improved from 6.3) * Repeat ABG --> WNL * Procalcitonin, CPT, BNP (pending) * CXR (pending read) Intervention: * RT performed suctioning for copious mucus secretions * No escalation of care needed at this time. Patient stabilized. ----- Gisella Hernandez MD PGY-1 Internal Medicine
--- NOTE | 2024-12-08 08:37 | PD.RESEVENT ---
Documentation for date of: 12/08/24 Event Note Event Note: Rapid response called for hypotension. At 07:30 AM, patient noted to have BP 99/66 and then 100/53. Remained somnolent and at baseline. No new focal findings or signs of pain/distress. Patient was given 1L lactated ringers IV bolus. BP improved to 112/65. HR remained in the 90s on diltiazem drip. Workup Ordered: Repeat lactate --> 3.3 (improved from 6.3) Repeat ABG --> WNL Procalcitonin, CPT, BNP (pending) CXR (pending read) Intervention: RT performed suctioning for copious mucus secretions No escalation of care needed at this time. Patient stabilized. ----- Gisella Hernandez MD PGY-1 Internal Medicine
[2024-12-08 08:45] LABS: Procalcitonin 5.48 ng/ml (0.0-0.49)
[2024-12-08] MEDS: APIXABAN 2.5 MG TABLET 5 MG GT ×2 (09:13→22:41)
[2024-12-08] MEDS: DOXYCYCLINE INJ 100 MG in SODIUM CHLORIDE 0.9% (POP) 100 ML IV ×2 (09:13→22:36)
[2024-12-08] MEDS: FAMOTIDINE 20 MG TABLET GT (09:13)
[2024-12-08] MEDS: ASPIRIN 81 MG CHEW GT (09:14)
--- NOTE | 2024-12-08 09:15 | PC.NURSE ---
pharmacist efra aware of meds needed that are not in pyxis.
[2024-12-08] MEDS: FENOFIBRATE 145 MG TABLET (NON-FORMULARY) GT (09:42)
[2024-12-08] MEDS: FLUCONAZOLE SUSP 40 MG/ML ML 200 MG GT (09:42)
[2024-12-08] MEDS: DOXAZOSIN MESYLATE 1 MG TABLET GT (09:43)
--- NOTE | 2024-12-08 10:52 | ESPR_ITS ---
Documentation for date of: 12/08/24 Subjective Subjective Interval history: Patient is nonverbal at baseline; history obtained via nursing and direct observation. Overnight, the patient remained clinically stable aside from a rapid response for hypotension, which resolved with IV fluids. This morning, he was found sleeping comfortably on his side. He was on 6L oxygen via face mask with O2 saturation noted at 86%; oxygen was increased to 10L with improvement in saturation to 96%. No signs of respiratory distress, discomfort, or new symptoms observed. Nursing staff report no fever, pain, or acute events overnight. PEG feeds have been tolerated without issue. Exam Vital Signs Temp Pulse Resp BP Pulse Ox O2 Del Method O2 Flow Rate 97.4 F 84 19 114/68 91 L Nasal Cannula 15 12/08/24 08:00 12/08/24 09:43 12/08/24 08:00 12/08/24 09:43 12/08/24 08:00 12/08/24 08:00 12/08/24 08:00 Narrative Exam General: Somnolent but at baseline, nonverbal, sleeping comfortably HEENT: Mucous membranes moist CV: RRR, no murmurs Pulm: Coarse crackles bilaterally, no retractions; sat 96% on 10L O2 via mask Abd: Soft, nontender, PEG tube clean and intact Neuro: A&O x1, baseline right hemiplegia and facial droop Skin: Intact, no rashes or ulcers Ext: No edema Objective Labs 12/09/24 04:22 12/09/24 04:22 Labs: Laboratory Results - last 24 hr 12/07/24 12/07/24 12/07/24 20:20 20:42 23:50 WBC 14.5 H RBC 3.92 L Hgb 12.2 L Hct 35.2 L MCV 90 MCH 31.1 MCHC 34.7 RDW Std Deviation 49.5 H Plt Count 340 D Neut % (Auto) 90 H Lymph % (Auto) 5 L [place] % (Auto) 5 Eos % (Auto) 0 Baso % (Auto) 0 Neut # (Auto) 13.0 H Lymph # (Auto) 0.7 L [place] # (Auto) 0.8 Eos # (Auto) 0.0 Baso # (Auto) 0.0 Immature Gran # (Auto) 0.04 H Absolute Nucleated RBC 0.00 Immature Gran % 0 Nucleated RBC % 0 ESR 40 H PT 13.6 H INR 1.3 APTT 30.5 D-Dimer 1670 H Puncture Site Left Radial ABG pH 7.44 ABG pCO2 31 L ABG pO2 68 L ABG HCO3 21 ABG O2 Saturation 95 ABG Base Excess -3 Oxygen Liter Flow 4 FiO2 21 Sodium 143 Potassium 4.0 Chloride 107 Carbon Dioxide 22.4 Anion Gap 14 BUN 49 H Creatinine 1.8 H D Estim Creat Clear Calc 30.5 L eGFR 38 L BUN/Creatinine Ratio 27 H Glucose 212 H Calculated Osmolality 303 H Lactic Acid 6.3 H* 5.8 H* Calcium 9.6 Corrected Calcium 10.0 Phosphorus Magnesium 2.6 Total Bilirubin 0.4 Direct Bilirubin 0.2 AST 24 ALT 12 Alkaline Phosphatase 50 Troponin I < 0.020 C-Reactive Prot, Quant 32.0 H B-Natriuretic Peptide 96 Total Protein 6.4 Albumin 3.5 Globulin 2.9 Albumin/Globulin Ratio 1.2 Amylase 83 Lipase 20 Procalcitonin 4.29 H TSH 2.77 Free T4 0.68 L Ur Collection Type Clean Catch Urine Color Drk-Yellow A Urine Clarity Turbid A Urine pH 6.0 Ur Specific [place] 1.034 Urine Protein 2+ A Urine Glucose (UA) Negative Urine Ketones Trace Urine Blood 3+ A Urine Nitrite Negative Urine Bilirubin Negative Urine Urobilinogen (Auto) 2.0 Ur Leukocyte Esterase Positive Urine RBC 54 H Urine WBC 98 H Ur Squamous Epith Cells 0 Urine Bacteria 4+ A Hyaline Casts 1 Ur Culture Indicated? Yes 12/08/24 12/08/24 12/08/24 05:45 07:22 07:35 WBC 12.4 H RBC 3.46 L Hgb 10.7 L Hct 31.4 L MCV 91 MCH 30.9 MCHC 34.1 RDW Std Deviation 50.9 H Plt Count 271 D Neut % (Auto) 91 H Lymph % (Auto) 5 L [place] % (Auto) 4 Eos % (Auto) 0 Baso % (Auto) 0 Neut # (Auto) 11.2 H Lymph # (Auto) 0.6 L [place] # (Auto) 0.5 Eos # (Auto) 0.0 Baso # (Auto) 0.0 Immature Gran # (Auto) 0.04 H Absolute Nucleated RBC 0.00 Immature Gran % 0 Nucleated RBC % 0 ESR PT INR APTT D-Dimer Puncture Site Site Not Noted ABG pH 7.44 ABG pCO2 33 ABG pO2 88 D ABG HCO3 22 ABG O2 Saturation 98 ABG Base Excess -1 Oxygen Liter Flow 15 FiO2 1 Sodium 145 Potassium 4.0 Chloride 110 H Carbon Dioxide 22.0 Anion Gap 13 BUN 51 H Creatinine 1.8 H Estim Creat Clear Calc 30.5 L eGFR 38 L BUN/Creatinine Ratio 28 H Glucose 232 H Calculated Osmolality 309 H Lactic Acid 3.3 H Calcium 8.7 Corrected Calcium 9.4 Phosphorus 4.0 Magnesium 2.1 Total Bilirubin 0.3 Direct Bilirubin AST 23 ALT 9 L Alkaline Phosphatase 41 L Troponin I C-Reactive Prot, Quant B-Natriuretic Peptide 53 Total Protein 6.2 Albumin 3.1 L Globulin 3.1 Albumin/Globulin Ratio 1.0 L Amylase Lipase Procalcitonin 5.48 H TSH Free T4 Ur Collection Type Urine Color Urine Clarity Urine pH Ur Specific [place] Urine Protein Urine Glucose (UA) Urine Ketones Urine Blood Urine Nitrite Urine Bilirubin Urine Urobilinogen (Auto) Ur Leukocyte Esterase Urine RBC Urine WBC Ur Squamous Epith Cells Urine Bacteria Hyaline Casts Ur Culture Indicated? ABG Interpretation ABG results: 12/07/24 12/08/24 20:42 07:22 ABG pH 7.44 7.44 ABG pCO2 31 L 33 ABG pO2 68 L 88 D ABG HCO3 21 22 ABG O2 Saturation 95 98 ABG Base Excess -3 -1 Quality Measures Quality Measures VTE prophylaxis Advance care planning discussed with:: patient Assessment & Plan Assessment Current Active Medications: Generic Name Dose Route Start Last Admin Trade Name Freq PRN Reason Stop Dose Admin Acetaminophen 650 mg 12/07/24 22:27 Acetaminophen Gisele 325 Mg/10 Ml Udc GT 01/06/25 22:26 Q4HR PRN Pain Or Fever > 100 Acetylcysteine 4 ml 12/08/24 01:00 12/08/24 06:37 Acetylcysteine Rt Gisele 10% 4 Ml Nebu INH 01/07/25 00:59 4 ml Q6HRRT RE Administration Apixaban 5 mg 12/08/24 09:00 12/08/24 09:13 Apixaban 2.5 Mg Tablet GT 01/07/25 08:59 5 mg BID RE Administration Aspirin 81 mg 12/08/24 09:00 12/08/24 09:14 Aspirin 81 Mg Chew GT 01/07/25 08:59 81 mg QDAY RE Administration Atorvastatin Calcium 40 mg 12/08/24 21:00 Atorvastatin Calcium 20 Mg Tablet GT 01/07/25 20:59 HS RE Doxazosin Mesylate 1 mg 12/08/24 09:00 12/08/24 09:43 Doxazosin Mesylate 1 Mg Tablet GT 01/07/25 08:59 1 mg QDAY RE Administration Famotidine 20 mg 12/08/24 09:00 12/08/24 09:13 Famotidine 20 Mg Tablet GT 01/07/25 08:59 20 mg QDAY RE Administration Fenofibrate 145 mg 12/08/24 09:00 12/08/24 09:42 Fenofibrate 145 Mg Tablet (Non-Formulary) GT 01/07/25 08:59 145 mg QDAY RE Administration Fluconazole 200 mg 12/08/24 09:00 12/08/24 09:42 Fluconazole Susp 40 Mg/Ml Ml GT 12/15/24 08:59 200 mg QDAY RE Administration Diltiazem HCl 125 mg in 125 mls @ 5 mls/hr 12/07/24 20:15 12/07/24 20:56 Diltiazem In D5w 125 Mg IV 01/06/25 20:14 5 mg/hr .Q24H RE 5 mls/hr Administration 5 MG/HR Doxycycline Hyclate 100 mg/ 100 mls @ 100 mls/hr 12/08/24 09:00 12/08/24 09:13 Sodium Chloride IV 12/15/24 08:59 100 mls/hr BID RE Administration Piperacillin/Tazobactam/Dextrose 3.375 gm in 50 mls @ 12.5 mls/hr 12/08/24 14:00 Zosyn IV 12/15/24 05:59 Q8HR RE Protocol Levalbuterol HCl 1.25 mg 12/08/24 01:00 12/08/24 06:37 Levalbuterol Rt 1.25 Mg/0.5 Ml Nebu INH 01/07/25 00:59 1.25 mg Q6HRRT RE Administration Ondansetron HCl 4 mg 12/07/24 22:12 Ondansetron Inj 2 Mg/Ml Inj 2 Ml IVP 01/06/25 22:11 Q6H PRN NAUSEA OR VOMITING Protocol Oxcarbazepine 300 mg 12/08/24 09:00 12/08/24 09:42 Oxcarbazepine 150 Mg Tablet GT 01/07/25 08:59 300 mg BID RE Administration Sennosides 8.8 mg 12/08/24 08:13 Sennosides Syrup 8.8 Mg/5 Ml Udc GT 01/07/25 08:06 QDAY PRN CONSTIPATION Protocol Sodium Chloride 3 ml 12/07/24 22:12 Sodium Chloride Rt Gisele 0.9% 3 Ml Nebu INH 01/06/25 22:11 PRN PRN SOLN Plan 79M with history of CVA, PEG tube, and recurrent pneumonia admitted for septic shock likely secondary to HAP, now stable on antibiotics and oxygen after rapid response for hypotension. #Septic shock ? likely HAP/aspiration pneumonia Patient with recurrent pneumonia now with hypoxia, hypotension (ED BP 93/58), and elevated lactate concerning for sepsis. CXR shows bilateral perihilar infiltrates. Lactic acid improved (6.3 --> 5.8 --> 3.3). WBC 14.5, CRP 32.0, Procalcitonin pending. Plan: * Continue Zosyn 4.5g IV q6h and Doxycycline 100mg IV BID * Maintain oxygen at 10L via mask * Continue aspiration precautions (HOB >30?) * Continue IV maintenance fluids * Monitor I&Os * Await blood and sputum culture results * Monitor for clinical improvement #Sinus tachycardia ? likely secondary to infection Sinus tachycardia on EKG, likely reactive due to sepsis. TSH 2.77, free T4 0.68 (rules out thyrotoxicosis). HR stable on monitoring. Plan: * Monitor vitals and telemetry * Maintain diltiazem IV if HR increases * No intervention for thyroid labs at this time #Huynh-associated bacteriuria vs UTI UA: 98 WBCs, 54 RBCs, 4+ bacteria, nitrite+, LE+. Patient afebrile, no systemic symptoms, likely colonization. Plan: * Await urine culture results * Monitor for fever/systemic signs * No antibiotics unless clinically indicated #Subclinical hypothyroidism Free T4 low (0.68), TSH normal (2.77), no symptoms. Plan: * No treatment needed * Recheck TSH/free T4 outpatient if needed #CVA with PEG, aphasia, hemiplegia Chronic deficits, patient nonverbal and somnolent at baseline, no acute neuro change. Plan: * Maintain aspiration precautions * Support PEG feeds * Reposition regularly * Resume PT/OT per SNF plan when stable #History of PE on Eliquis Anticoagulation held due to sepsis/hypotension; no signs of bleeding. Plan: * Monitor Hgb and vitals * Reassess need for anticoagulation once hemodynamically stable #GERD #HLD #HTN #History of cocci Chronic, no active issues. Plan: * Continue home meds as appropriate * Hold amlodipine for low BP * Continue atorvastatin 40 mg PO Health Maintenance Disposition: Med Surg Diet: NPO (PEG feeds) DVT prophylaxis: Heparin 5000 units SC BID GI prophylaxis: Not indicated Huynh: Present Lines: PIV O2: 10L via mask Code Status: DNR ----- Plan discussed with attending physician Dr. Marisela Hernandez MD PGY-1 Internal Medicine Attending Provider Attestation/Addendum I, Mercy Antonio DO, attest that I was physically present for the rodriguez portions of the service and evaluated the patient with the resident and I reviewed and discussed the case with the resident and agree with the resident's findings and plans of care as documented above Patient seen and eval this a.m. Patient had a rapid response due to desaturation and mild hypotension this morning. Patient responded well to IV fluids. He appears to have dry oral mucosa. No peripheral edema noted. Will start patient on IV fluid. Scattered rhonchi noted in bilateral lung loja. Will start patient on chest PT and Mucomyst with his breathing treatments. Patient appeared more interactive after receiving IV fluids and complained of some nausea. Patient is nonverbal at baseline and nods or shakes his head in response to questions. Abdomen appeared tender on palpation. Gastric bubble appears distended on chest x-ray. Will place G-tube to gravity. KUB showed dilated loops of bowel concerning for small bowel obstruction. However, patient has had 2 bowel movements per nursing. Will obtain Gastrografin small bowel follow-through. Concerned that patient may be aspirating due to right perihilar pneumonia noted that has been worsening. Previous urine culture was positive for Pseudomonas 2 days prior to admission during which patient was in ED due to removal of Huynh catheter resulting in bleeding from the urethra. Patient currently on Zosyn and doxycycline. Patient had been on anticoagulation, but now discontinued due to bleeding from urethra. Will continue to follow repeat cultures and current management.
[2024-12-08 11:04] LABS: Reflex Lactate? Y
--- NOTE | 2024-12-08 11:30 | XR_ITS ---
Examination: Abdomen AP single view Technique: AP portable supine abdomen, single view Exam date and time: December 08, 2024, 11:50 PM. Indications: Abdominal pain today. Findings: Viable air distended small bowel loops Gastrostomy tube overlies the stomach Abundant stool in the colon No free air Impression: Small bowel obstruction pattern
--- NOTE | 2024-12-08 11:39 | PC.DIETICIAN ---
Dietitian recommendation: When medically feasible, start Glucerna 1.2 at 25ml/hr via peg by pump. Advance 10ml/hr Q 8 hours to goal rate of 65ml/hr x 24hrs. If no IVF, give water flushes of 30ml/hr (or per MD) Thank you
[2024-12-08 13:06] LABS: Lactic Acid, 3 HR 2.4 mMol/L (0.4-2.0)
[2024-12-08] MEDS: RINGERS LACTATED 1000 ML 1,000 ML 75 ML IV (13:28)
[2024-12-08] MEDS: PIPER/TAZO 3.375 GM PREMIX 3.375 GM/50 ML BAG IV ×2 (13:28→22:41)
[2024-12-08] MEDS: SODIUM CHLORIDE 0.9% 1000 ML 1,000 ML 80 ML IV (13:43)
[2024-12-08] MEDS: METOCLOPRAMIDE INJ 5 MG/ML VIAL 2 ML IVP (14:28)
--- NOTE | 2024-12-08 17:06 | PC.NURSE ---
Dr. Antonio made aware pt. grimaces with movement of verma and there is a small amount of blood drainage from urethra, but urine is not bloody. Pt. was pulling on verma catheter this AM so pt. was placed on telesitter for own safety to prevent pulling on lines. New cath secure placed at that time. Dr. lipscomb pt. had 200 ml urine out put for the shift and bladder scan shows 198 ml remaining in the bladder. No new orders received at this time.
--- NOTE | 2024-12-08 17:10 | PC.NURSE ---
Per Dr. Antonio hold tube feeds at this time
[2024-12-08] MEDS: DILTIAZEM in D5W 125 MG 125 MG/125 ML BAG IV (21:08)
[2024-12-08] MEDS: ATORVASTATIN CALCIUM 20 MG TABLET 40 MG GT (22:41)
[2024-12-09] VITALS (11 sets, daily range): BP systolic 100–134; BP diastolic 61–73; PULSE 73–105; RESP 14–20; TEMP 36.1–36.6; O2SAT 96–100; BMI 25.7
--- NOTE | 2024-12-09 | XR_ITS ---
Examination: Abdomen AP single view Technique: AP portable supine abdomen, single view Exam date and time: December 09, 2024, 181 hours INDICATIONS: Abdominal distention this week, 7 hour delayed film for small bowel series today. FINDINGS: Contrast distended small bowel loops IMPRESSION: High-grade mechanical small bowel obstruction pattern
--- NOTE | 2024-12-09 | XR_ITS ---
Examination: Abdomen AP single view Technique: AP portable supine abdomen, single view Exam date and time: December 09, 2024, 1551 hrs. Indications: Abdominal pain and distention this week, 4.5 hour delayed film post small bowel series today. Findings: Contrast now in significantly distended small bowel loops Impression: Small bowel obstruction pattern, multiple additional delayed films will be obtained
--- NOTE | 2024-12-09 | XR_ITS ---
Examination: Abdomen AP single view Technique: AP portable supine abdomen, single view Exam date and time: December 09, 20242001 hours INDICATIONS: Abdominal pain and distention this week, 9 hour delayed film for small bowel series today FINDINGS: Contrast in distended small bowel loops IMPRESSION: Small bowel obstruction pattern. Recommend follow-up films 10:00 PM, 1:00 AM, 5:00 AM
[2024-12-09] MEDS: LEVALBUTEROL RT 1.25 MG/0.5 ML NEBU INH ×4 (01:00→18:42)
[2024-12-09] MEDS: ACETYLCYSTEINE RT SOL 10% 4 ML NEBU INH ×4 (01:00→18:42)
[2024-12-09] MEDS: PIPER/TAZO 3.375 GM PREMIX 3.375 GM/50 ML BAG IV ×3 (05:13→22:24)
[2024-12-09 05:26] LABS: Basophils # (Auto) 0.0 Thou/mm3 (0.0-0.2); Basophils % (Auto) 0 % (0-2.5); Eosinophils # (Auto) 0.0 Thou/mm3 (0.0-0.5); Eosinophils % (Auto) 0 % (0-10); Hematocrit 29.7 % (41.0-53.0); Hemoglobin 10.1 g/dL (13.5-16.0); Immature Granulocytes Auto 0.02 Thou/mm3 (0.00-0.00); Lymphocytes # (Auto) 0.5 Thou/mm3 (1.0-4.8); Lymphocytes % (Auto) 8 % (10-50); Mean Corpuscular HGB Conc 34.0 g/dl (31.0-37.0); Mean Corpuscular Hemoglobin 30.4 pg (25.0-35.0); Mean Corpuscular Volume 90 fL (80-100); Monocytes # (Auto) 0.3 Thou/mm3 (0.0-0.8); Monocytes % (Auto) 6 % (0-12); Neutrophils # (Auto) 5.2 Thou/mm3 (1.8-7.7); Neutrophils % (Auto) 86 % (37-80); Nucleated Red Blood Cell # 0.00 Thou/mm3 (0.00-0.00); Nucleated Red Blood Cell % 0 /100 WBC (0); Platelet Count 257 Thou/mm3 (140-440); RDW Standard Deviation 50.1 fL (35.1-43.9); Red Blood Count 3.32 Miln/mm3 (4.50-5.90); White Blood Count 6.0 Thou/mm3 (3.8-10.6)
[2024-12-09 06:31] LABS: Alanine Aminotransferase 9 U/L (10-49); Albumin, Serum 2.9 gm/dL (3.4-4.8); Albumin/Globulin Ratio 0.9 (1.2-2.2); Alkaline Phosphatase 35 U/L (46-116); Anion Gap 13 (7-16); Aspartate Amino Transferase 22 U/L (0-34); BUN/Creatinine Ratio 49 Ratio (12-20); Bilirubin,Total 0.3 mg/dL (0.3-1.2); Blood Urea Nitrogen 59 mg/dL (9-23); Calcium 8.6 mg/dL (8.3-10.6); Calcium (Corrected) 9.5 mg/dL (8.5-10.1); Carbon Dioxide 23.1 mMol/L (20.0-31.0); Chloride 112 mMol/L (98-107); Creatinine (Component) 1.2 mg/dL (0.6-1.3); Estimated Creatinine Clearance 45.8 mL/min (>60); Globulin 3.1 gm/dL (2.3-3.5); Glucose 127 mg/dL (74-106); Magnesium 2.2 mg/dL (1.6-2.6); Osmolality,Calculated 312 (275-295); Phosphorous 2.5 mg/dL (2.4-5.1); Potassium 3.4 mMol/L (3.4-5.1); Sodium 148 mMol/L (136-145); Total Protein 6.0 gm/dL (5.7-8.2); eGFR > 60 See Note
--- NOTE | 2024-12-09 07:57 | XR_ITS ---
Examination: Abdomen AP single view Technique: AP portable supine abdomen, single view Exam date and time: December 09, 2024, 0818 hrs., Comparison December 08, 2024 Indications: Abdominal distention this week. Findings: Prominently air distended small bowel loops Moderate stool in the right colon. No free air. Impression: Small bowel obstruction pattern.
[2024-12-09] MEDS: FLUCONAZOLE SUSP 40 MG/ML ML 200 MG GT (08:22)
[2024-12-09] MEDS: POT PHOS 15 mMol in NS 250 ML 15 MMOL/250 ML BAG 62.5 MMOL IV (08:23)
[2024-12-09] MEDS: DOXAZOSIN MESYLATE 1 MG TABLET GT (08:24)
[2024-12-09] MEDS: FENOFIBRATE 145 MG TABLET (NON-FORMULARY) GT (08:24)
[2024-12-09] MEDS: ASPIRIN 81 MG CHEW GT (08:25)
[2024-12-09] MEDS: APIXABAN 2.5 MG TABLET 5 MG GT ×2 (08:25→22:23)
[2024-12-09] MEDS: DOXYCYCLINE INJ 100 MG in SODIUM CHLORIDE 0.9% (POP) 100 ML IV ×2 (08:25→22:24)
[2024-12-09] MEDS: FAMOTIDINE 20 MG TABLET GT (08:25)
--- NOTE | 2024-12-09 10:25 | XR_ITS ---
Examination: Small bowel series Abdomen AP portable supine 3 views Date and time: December 09, 2024, 1112 hrs. Indications: Abdominal pain and distention this week Technique And Findings: Patient received 120 cc Gastrografin with 1 minute, 30 minute and 1 films obtained Prominently air distended small bowel loops Contrast primarily in the stomach Impression: Small bowel obstruction pattern Recommend follow-up abdomen films 2:00 PM, 4:00 PM, 6:00 PM, 8:00 PM
--- NOTE | 2024-12-09 12:37 | ESPR_ITS ---
<Statement entered by Zachariah George MD - 12/09/24 14:18> Patient was seen and examined at the bedside. No acute overnight events were reported. Patient was on Cardizem drip which was stopped as there was initial concern of atrial flutter however patient only has sinus tachycardia. Will continue with Gastrografin series to rule out SBO since x-ray KUB showed small bowel obstruction pattern. Sputum growing GNR and blood cultures, negative x 24 hours. Patient continues to remain on 5 L oxygen. Will follow-up with Gastrografin series. Holding off tube feedings. Only medications to be given from the G-tube. Started on LR at 75 cc/h. All labs and orders were reviewed. I discussed and supervised with the internal wholesaler physician who took care of this patient. I personally saw and examined the patient. I agree with most of the assessment and plan. Disclaimer: Despite multiple revisions, due to the dictation software being used, the document bellow may not be free of grammatical errors including phonetic/typographic errors. However, this does not deter from our commitment to providing health care in the patient's best interest in mind. Plan of care discussed with attending Physician Dr. Marisela George MD PGY-3 Documentation for date of: 12/09/24 Subjective Subjective Interval history: No overnight events. Evaluated at bedside. Pt resting comfortably in bed. Per nursing staff, pt has an episode of green, pasty, bowel movement overnight. Repeat KUB XR today still shows SBO pattern. XR small bowel with contrast ordered. Exam Vital Signs Temp Pulse Resp BP Pulse Ox O2 Del Method O2 Flow Rate 97.3 F 93 18 116/68 100 Nasal Cannula 4 12/09/24 08:00 12/09/24 12:06 12/09/24 12:06 12/09/24 08:24 12/09/24 12:06 12/09/24 08:00 12/09/24 12:06 Narrative Exam General: Somnolent but at baseline, nonverbal, sleeping comfortably HEENT: Mucous membranes moist CV: RRR, no murmurs Pulm: CTAB no retractions; sat 100% on 5L O2 Abd: Soft, nontender, PEG tube clean and intact Neuro: A&O x1, baseline right hemiplegia and facial droop Skin: Intact, no rashes or ulcers Ext: No edema Objective Labs 12/10/24 06:55 12/10/24 06:55 Labs: Laboratory Results - last 24 hr 12/08/24 12/09/24 13:00 04:22 WBC 6.0 D RBC 3.32 L Hgb 10.1 L Hct 29.7 L MCV 90 MCH 30.4 MCHC 34.0 RDW Std Deviation 50.1 H Plt Count 257 Neut % (Auto) 86 H Lymph % (Auto) 8 L Phelps % (Auto) 6 Eos % (Auto) 0 Baso % (Auto) 0 Neut # (Auto) 5.2 Lymph # (Auto) 0.5 L Phelps # (Auto) 0.3 Eos # (Auto) 0.0 Baso # (Auto) 0.0 Immature Gran # (Auto) 0.02 H Absolute Nucleated RBC 0.00 Immature Gran % 0 Nucleated RBC % 0 Sodium 148 H Potassium 3.4 D Chloride 112 H Carbon Dioxide 23.1 Anion Gap 13 BUN 59 H Creatinine 1.2 D Estim Creat Clear Calc 45.8 L eGFR > 60 BUN/Creatinine Ratio 49 H Glucose 127 H D Calculated Osmolality 312 H Lactic Acid 2.4 H Calcium 8.6 Corrected Calcium 9.5 Phosphorus 2.5 Magnesium 2.2 Total Bilirubin 0.3 AST 22 ALT 9 L Alkaline Phosphatase 35 L Total Protein 6.0 Albumin 2.9 L Globulin 3.1 Albumin/Globulin Ratio 0.9 L ABG Interpretation ABG results: 12/07/24 12/08/24 20:42 07:22 ABG pH 7.44 7.44 ABG pCO2 31 L 33 ABG pO2 68 L 88 D ABG HCO3 21 22 ABG O2 Saturation 95 98 ABG Base Excess -3 -1 Quality Measures Quality Measures VTE prophylaxis Advance care planning discussed with:: patient Assessment & Plan Assessment Current Active Medications: Generic Name Dose Route Start Last Admin Trade Name Freq PRN Reason Stop Dose Admin Acetaminophen 650 mg 12/07/24 22:27 Acetaminophen Gisele 325 Mg/10 Ml Udc GT 01/06/25 22:26 Q4HR PRN Pain Or Fever > 100 Acetylcysteine 4 ml 12/08/24 01:00 12/09/24 12:06 Acetylcysteine Rt Gisele 10% 4 Ml Nebu INH 01/07/25 00:59 4 ml Q6HRRT RE Administration Apixaban 5 mg 12/08/24 09:00 12/09/24 08:25 Apixaban 2.5 Mg Tablet GT 01/07/25 08:59 5 mg BID RE Administration Aspirin 81 mg 12/08/24 09:00 12/09/24 08:25 Aspirin 81 Mg Chew GT 01/07/25 08:59 81 mg QDAY RE Administration Atorvastatin Calcium 40 mg 12/08/24 21:00 12/08/24 22:41 Atorvastatin Calcium 20 Mg Tablet GT 01/07/25 20:59 40 mg HS RE Administration Bisacodyl 10 mg 12/08/24 14:05 Bisacodyl 10 Mg Supp NC 01/07/25 14:04 QDAY PRN CONSTIPATION Protocol Doxazosin Mesylate 1 mg 12/08/24 09:00 12/09/24 08:24 Doxazosin Mesylate 1 Mg Tablet GT 01/07/25 08:59 1 mg QDAY RE Administration Famotidine 20 mg 12/08/24 09:00 12/09/24 08:25 Famotidine 20 Mg Tablet GT 01/07/25 08:59 20 mg QDAY RE Administration Fenofibrate 145 mg 12/08/24 09:00 12/09/24 08:24 Fenofibrate 145 Mg Tablet (Non-Formulary) GT 01/07/25 08:59 145 mg QDAY RE Administration Fluconazole 200 mg 12/08/24 09:00 12/09/24 08:22 Fluconazole Susp 40 Mg/Ml Ml GT 12/15/24 08:59 200 mg QDAY RE Administration Doxycycline Hyclate 100 mg/ 100 mls @ 100 mls/hr 12/08/24 09:00 12/09/24 08:25 Sodium Chloride IV 12/15/24 08:59 100 mls/hr BID RE Administration Piperacillin/Tazobactam/Dextrose 3.375 gm in 50 mls @ 12.5 mls/hr 12/08/24 14:00 12/09/24 05:13 Zosyn IV 12/15/24 05:59 12.5 mls/hr Q8HR RE Administration Protocol Lactated Ringer's 1,000 mls @ 75 mls/hr 12/09/24 10:25 Lactated Ringers IV 12/09/24 23:44 .[id number] RE Levalbuterol HCl 1.25 mg 12/08/24 01:00 12/09/24 12:06 Levalbuterol Rt 1.25 Mg/0.5 Ml Nebu INH 01/07/25 00:59 1.25 mg Q6HRRT RE Administration Ondansetron HCl 4 mg 12/07/24 22:12 Ondansetron Inj 2 Mg/Ml Inj 2 Ml IVP 01/06/25 22:11 Q6H PRN NAUSEA OR VOMITING Protocol Oxcarbazepine 300 mg 12/08/24 09:00 12/09/24 08:23 Oxcarbazepine 150 Mg Tablet GT 01/07/25 08:59 300 mg BID RE Administration Sennosides 8.8 mg 12/08/24 08:13 Sennosides Syrup 8.8 Mg/5 Ml Udc GT 01/07/25 08:06 QDAY PRN CONSTIPATION Protocol Sodium Chloride 3 ml 12/07/24 22:12 Sodium Chloride Rt Gisele 0.9% 3 Ml Nebu INH 01/06/25 22:11 PRN PRN SOLN Plan 79M with history of CVA, PEG tube, and recurrent pneumonia admitted for septic shock likely secondary to HAP, now stable on antibiotics and oxygen after rapid response for hypotension. Repeat KUB today still reads SBO pattern, small bowel gastrografin enema XR ordered. #Septic shock ? likely HAP/aspiration pneumonia Patient with recurrent pneumonia now with hypoxia, hypotension (ED BP 93/58), and elevated lactate concerning for sepsis. CXR shows bilateral perihilar infiltrates. Lactic acid improved (6.3 --> 5.8 --> 3.3 -> 2.4). WBC 6.0, CRP 32.0, Procalcitonin 5.48. Plan: * Continue Zosyn 3.375g IV q8h and Doxycycline 100mg IV BID * Continue acetylcysteine inhaler. * Titrate O2 sat with goal of > 98% * Continue aspiration precautions (HOB >30?) * Continue IV maintenance fluids * Monitor I&Os * Await blood and sputum culture results * Monitor for clinical improvement #SBO Both KUB on 12/08 and 12/09 shows SBO pattern despite pt having bowel movement overnight. Gastrografin enema XR ordered. * Pending gastrograffin enema XR #Sinus tachycardia ? likely secondary to infection Sinus tachycardia on EKG, likely reactive due to sepsis. TSH 2.77, free T4 0.68 (rules out thyrotoxicosis). HR stable on monitoring. Plan: * Monitor vitals and telemetry * Diltiazem discontinued. VS Stable. * No intervention for thyroid labs at this time #Huynh-associated bacteriuria vs UTI UA: 98 WBCs, 54 RBCs, 4+ bacteria, nitrite+, LE+. Patient afebrile, no systemic symptoms, likely colonization. Plan: * Await urine culture results * Monitor for fever/systemic signs * No antibiotics unless clinically indicated #Subclinical hypothyroidism Free T4 low (0.68), TSH normal (2.77), no symptoms. Plan: * No treatment needed * Recheck TSH/free T4 outpatient if needed #CVA with PEG, aphasia, hemiplegia Chronic deficits, patient nonverbal and somnolent at baseline, no acute neuro change. Plan: * Maintain aspiration precautions * Support PEG feeds * Reposition regularly * Resume PT/OT per SNF plan when stable #History of PE on Eliquis Anticoagulation held due to sepsis/hypotension; no signs of bleeding. 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 Plan: * Continue home meds as appropriate * Hold amlodipine for low BP * Continue atorvastatin 40 mg PO Health Maintenance Disposition: Med Surg Diet: NPO (PEG feeds) DVT prophylaxis: Pt on aspirin and Eliquis GI prophylaxis: Famotidine 20mg Huynh: Present Lines: PIV O2: titrate to goal of >98% Code Status: DNR ----- Case discussed with my senior resident Dr. George Case discussed with my attending Dr. Marisela Jalloh DO PGY 1 Attending Provider Attestation/Addendum Mercy Pablo DO, attest that I was physically present for the rodriguez portions of the service and evaluated the patient with the resident and I reviewed and discussed the case with the resident and agree with the resident's findings and plans of care as documented above Patient seen and eval this a.m. Patient appears more alert today. Patient endorses having some nausea and abdominal pain upon questioning. Patient grimaces with palpation of abdomen which does not appear to be distended. KUB was repeated as patient was able to have a bowel movement this morning, but continues to show SBO pattern. Will start patient on Gastrografin small bowel follow-through. If positive will consult surgery. Continue to follow-up with blood and urine cultures. Will continue with IV fluid hydration as patient has not been receiving any PEG tube feeds given SBO.
[2024-12-09] MEDS: RINGERS LACTATED 1000 ML 1,000 ML 75 ML IV (12:39)
[2024-12-09] MEDS: SODIUM CHLORIDE RT SOL 0.9% 3 ML NEBU INH (18:45)
--- NOTE | 2024-12-09 21:23 | PC.NURSE ---
PER DR. ROMEO, OK TO CONTINUE WITH MEDICATIONS AND NG WITH LIS.
[2024-12-09] MEDS: ATORVASTATIN CALCIUM 20 MG TABLET 40 MG GT (22:23)
--- NOTE | 2024-12-09 22:23 | XR_ITS ---
Examination: AP chest single view TECHNIQUE: AP portable semiupright chest single view Date and time: December 09, 2024 10:55 PM Comparison December 08, 2024 INDICATIONS: Post orogastric tube placement FINDINGS: Mild bilateral perihilar pneumonia Normal heart size Orogastric tube in the stomach IMPRESSION: Advance the orogastric tube 4 cm
[2024-12-10] VITALS (11 sets, daily range): BP systolic 118–132; BP diastolic 63–75; PULSE 55–105; RESP 16–21; TEMP 36–36.6; O2SAT 94–99; BMI 25.2
--- NOTE | 2024-12-10 | XR_ITS ---
Examination: Abdomen AP single view Technique: AP portable supine abdomen, single view Exam date and time: 12/10/2024 0007 hrs Indications: 18 hr delayed film post SBS Findings: Distended small bowel loops remain Impression: Small bowel obstruction pattern
--- NOTE | 2024-12-10 00:01 | XR_ITS ---
Exam: Chest AP single view Technique: AP port chest single view Indications: reposition OGT Findings: Satisfactory position OGT Bilat ral perihilar pneumonia Normal heart size Impression: Sais factory position OGT
[2024-12-10] MEDS: ACETYLCYSTEINE RT SOL 10% 4 ML NEBU INH ×4 (00:59→18:26)
[2024-12-10] MEDS: LEVALBUTEROL RT 1.25 MG/0.5 ML NEBU INH ×4 (00:59→18:26)
[2024-12-10] MEDS: SODIUM CHLORIDE RT SOL 0.9% 3 ML NEBU INH ×2 (00:59→18:26)
--- NOTE | 2024-12-10 02:49 | PC.NURSE ---
notified Dr. nazario of patient x 1 approx. 200ml bile emesis. x 1 large bowel blood streaked. patient reported to have x1 emesis during day shift. per MD gates to continue with scheduled medication via peg-tub. order for placement of NG-tube on low intermittent suction given via phone. approx 2100. NG-tube placed at 2200, called made aware patient attempting to self remove NG-tube with left hand. orders received for left wrist soft restraint x 24hours . xray ordered for verification of NG-tube placement. notified Dr. Penn at approx [phone] technology strategist advised to turn LIS off due to patient still needed small bowel series done. [facility] nursing order placed for LIS to be held.
[2024-12-10] MEDS: ONDANSETRON INJ 2 MG/ML INJ 2 ML 4 MG IVP (03:30)
--- NOTE | 2024-12-10 03:58 | PRELIM_ITS ---
Radiograph of the chest (single view). December 10, 2024 0001 hours Clinical history: ngt advanced Compared with the prior study dated November. Findings: A nasogastric catheter is in satisfactory position with its tip in the stomach.The heart, mediastinum and pulmonary jaron are unremarkable. The interstitial markings are prominent. There is no pleural effusion. The bony thorax is unremarkable. Impression: Nasogastric catheter in satisfactory position. Report Electronically Signed By: Roderick Lee 12/10/2024 3:57:43 AM [EST]
--- NOTE | 2024-12-10 05:00 | XR_ITS ---
Examination: Abdomen AP single view Technique: AP portable supine abdomen, single view Exam date and time: December 10, 2024 0506 hours INDICATIONS: Abdominal pain and distention this week, 18 hour delayed film post small bowel series FINDINGS: Contrast in extensively distended small bowel loops IMPRESSION: High-grade small bowel obstruction
[2024-12-10] MEDS: PIPER/TAZO 3.375 GM PREMIX 3.375 GM/50 ML BAG IV ×3 (05:38→21:56)
[2024-12-10 07:15] LABS: Basophils # (Auto) 0.0 Thou/mm3 (0.0-0.2); Basophils % (Auto) 0 % (0-2.5); Eosinophils # (Auto) 0.0 Thou/mm3 (0.0-0.5); Eosinophils % (Auto) 0 % (0-10); Hematocrit 32.6 % (41.0-53.0); Hemoglobin 10.9 g/dL (13.5-16.0); Immature Granulocytes Auto 0.03 Thou/mm3 (0.00-0.00); Lymphocytes # (Auto) 0.5 Thou/mm3 (1.0-4.8); Lymphocytes % (Auto) 8 % (10-50); Mean Corpuscular HGB Conc 33.4 g/dl (31.0-37.0); Mean Corpuscular Hemoglobin 31.2 pg (25.0-35.0); Mean Corpuscular Volume 93 fL (80-100); Monocytes # (Auto) 0.3 Thou/mm3 (0.0-0.8); Monocytes % (Auto) 5 % (0-12); Neutrophils # (Auto) 4.9 Thou/mm3 (1.8-7.7); Neutrophils % (Auto) 86 % (37-80); Nucleated Red Blood Cell # 0.00 Thou/mm3 (0.00-0.00); Nucleated Red Blood Cell % 0 /100 WBC (0); Platelet Count 300 Thou/mm3 (140-440); RDW Standard Deviation 52.2 fL (35.1-43.9); Red Blood Count 3.49 Miln/mm3 (4.50-5.90); White Blood Count 5.7 Thou/mm3 (3.8-10.6)
[2024-12-10 07:26] LABS: Alanine Aminotransferase 11 U/L (10-49); Albumin, Serum 3.1 gm/dL (3.4-4.8); Albumin/Globulin Ratio 1.1 (1.2-2.2); Alkaline Phosphatase 37 U/L (46-116); Anion Gap 15 (7-16); Aspartate Amino Transferase 25 U/L (0-34); BUN/Creatinine Ratio 49 Ratio (12-20); Bilirubin,Total 0.4 mg/dL (0.3-1.2); Blood Urea Nitrogen 49 mg/dL (9-23); Calcium 9.0 mg/dL (8.3-10.6); Calcium (Corrected) 9.7 mg/dL (8.5-10.1); Carbon Dioxide 23.7 mMol/L (20.0-31.0); Chloride 115 mMol/L (98-107); Creatinine (Component) 1.0 mg/dL (0.6-1.3); Estimated Creatinine Clearance 54.9 mL/min (>60); Globulin 2.9 gm/dL (2.3-3.5); Glucose 138 mg/dL (74-106); Magnesium 2.4 mg/dL (1.6-2.6); Osmolality,Calculated 320 (275-295); Phosphorous 1.9 mg/dL (2.4-5.1); Potassium 3.2 mMol/L (3.4-5.1); Sodium 154 mMol/L (136-145); Total Protein 6.0 gm/dL (5.7-8.2); eGFR > 60 See Note
--- NOTE | 2024-12-10 09:13 | ESPR_ITS ---
<Statement entered by Jcarlos Aguayo MD - 12/10/24 16:12> Patient seen and examined at bedside. I discussed and supervised with the internal salesperson physician who took care of this patient. I personally saw and examined the patient. I agree with most of the assessment and plan. patient pulled NG tube, replaced, mittens ordered. SBO follow through series in progress. Gen surgery consulted. Patient remains hypoxic, significant rhonchi, not in respiratory distress. Continuing IV antibiotics, CPT, mucolytics. Plan of care discussed with attending Dr. Antonio. Jcarlos Augayo MD PGY-2 Documentation for date of: 12/10/24 Subjective Subjective Interval history: Patient seen and evaluated at bedside. Patient is nonverbal at baseline and unable to express complaints clearly. Per nursing, patient had one bowel movement yesterday and experienced an episode of non-bloody, non-bilious emesis overnight. No new complaints reported. O2 saturation this morning is 92% on 4L nasal cannula. No abdominal distension noted on exam. No other acute events or changes overnight. Exam Vital Signs Temp Pulse Resp BP Pulse Ox O2 Del Method O2 Flow Rate 96.8 F 97 19 122/68 99 Nasal Cannula 4 12/10/24 04:00 12/10/24 06:28 12/10/24 06:28 12/10/24 04:00 12/10/24 06:28 12/10/24 04:00 12/10/24 06:28 Narrative Exam General: Somnolent but at baseline, nonverbal, sleeping comfortably HEENT: Mucous membranes moist CV: RRR, no murmurs Pulm: CTAB no retractions; sat 92% on 4L O2 Abd: Soft, nontender, PEG tube clean and intact Neuro: A&O x1, baseline right hemiplegia and facial droop Skin: Intact, no rashes or ulcers Objective Labs 12/11/24 05:41 12/11/24 09:50 Labs: Laboratory Results - last 24 hr 12/10/24 06:55 WBC 5.7 RBC 3.49 L Hgb 10.9 L Hct 32.6 L MCV 93 MCH 31.2 MCHC 33.4 RDW Std Deviation 52.2 H Plt Count 300 D Neut % (Auto) 86 H Lymph % (Auto) 8 L [place] % (Auto) 5 Eos % (Auto) 0 Baso % (Auto) 0 Neut # (Auto) 4.9 Lymph # (Auto) 0.5 L [place] # (Auto) 0.3 Eos # (Auto) 0.0 Baso # (Auto) 0.0 Immature Gran # (Auto) 0.03 H Absolute Nucleated RBC 0.00 Immature Gran % 1 H Nucleated RBC % 0 Sodium 154 H Potassium 3.2 L Chloride 115 H Carbon Dioxide 23.7 Anion Gap 15 BUN 49 H Creatinine 1.0 Estim Creat Clear Calc 54.9 L eGFR > 60 BUN/Creatinine Ratio 49 H Glucose 138 H Calculated Osmolality 320 H Calcium 9.0 Corrected Calcium 9.7 Phosphorus 1.9 L Magnesium 2.4 Total Bilirubin 0.4 AST 25 ALT 11 Alkaline Phosphatase 37 L Total Protein 6.0 Albumin 3.1 L Globulin 2.9 Albumin/Globulin Ratio 1.1 L ABG Interpretation ABG results: 12/07/24 12/08/24 20:42 07:22 ABG pH 7.44 7.44 ABG pCO2 31 L 33 ABG pO2 68 L 88 D ABG HCO3 21 22 ABG O2 Saturation 95 98 ABG Base Excess -3 -1 Quality Measures Quality Measures VTE prophylaxis Advance care planning discussed with:: patient Assessment & Plan Assessment Current Active Medications: Generic Name Dose Route Start Last Admin Trade Name Freq PRN Reason Stop Dose Admin Acetaminophen 650 mg 12/07/24 22:27 Acetaminophen Gisele 325 Mg/10 Ml Udc GT 01/06/25 22:26 Q4HR PRN Pain Or Fever > 100 Acetylcysteine 4 ml 12/08/24 01:00 12/10/24 06:24 Acetylcysteine Rt Gisele 10% 4 Ml Nebu INH 01/07/25 00:59 4 ml Q6HRRT RE Administration Apixaban 5 mg 12/08/24 09:00 12/09/24 22:23 Apixaban 2.5 Mg Tablet GT 01/07/25 08:59 5 mg BID RE Administration Aspirin 81 mg 12/08/24 09:00 12/09/24 08:25 Aspirin 81 Mg Chew GT 01/07/25 08:59 81 mg QDAY RE Administration Atorvastatin Calcium 40 mg 12/08/24 21:00 12/09/24 22:23 Atorvastatin Calcium 20 Mg Tablet GT 01/07/25 20:59 40 mg HS RE Administration Bisacodyl 10 mg 12/08/24 14:05 Bisacodyl 10 Mg Supp UT 01/07/25 14:04 QDAY PRN CONSTIPATION Protocol Doxazosin Mesylate 1 mg 12/08/24 09:00 12/09/24 08:24 Doxazosin Mesylate 1 Mg Tablet GT 01/07/25 08:59 1 mg QDAY RE Administration Famotidine 20 mg 12/08/24 09:00 12/09/24 08:25 Famotidine 20 Mg Tablet GT 01/07/25 08:59 20 mg QDAY RE Administration Fenofibrate 145 mg 12/08/24 09:00 12/09/24 08:24 Fenofibrate 145 Mg Tablet (Non-Formulary) GT 01/07/25 08:59 145 mg QDAY RE Administration Fluconazole 200 mg 12/08/24 09:00 12/09/24 08:22 Fluconazole Susp 40 Mg/Ml Ml GT 12/15/24 08:59 200 mg QDAY RE Administration Doxycycline Hyclate 100 mg/ 100 mls @ 100 mls/hr 12/08/24 09:00 12/09/24 22:24 Sodium Chloride IV 12/15/24 08:59 100 mls/hr BID RE Administration Piperacillin/Tazobactam/Dextrose 3.375 gm in 50 mls @ 12.5 mls/hr 12/08/24 14:00 12/10/24 05:38 Zosyn IV 12/15/24 05:59 12.5 mls/hr Q8HR RE Administration Protocol Potassium Phosphate 22.5 mmol/ 507.5 mls @ 82.778 mls/hr 12/10/24 07:57 Sodium Chloride IV 12/10/24 14:04 X1 ONE Dextrose 1,000 mls @ 100 mls/hr 12/10/24 08:15 D5w IV 01/09/25 08:14 .Q10H RE Levalbuterol HCl 1.25 mg 12/08/24 01:00 12/10/24 06:24 Levalbuterol Rt 1.25 Mg/0.5 Ml Nebu INH 01/07/25 00:59 1.25 mg Q6HRRT RE Administration Ondansetron HCl 4 mg 12/07/24 22:12 12/10/24 03:30 Ondansetron Inj 2 Mg/Ml Inj 2 Ml IVP 01/06/25 22:11 4 mg Q6H PRN Administration NAUSEA OR VOMITING Protocol Oxcarbazepine 300 mg 12/08/24 09:00 12/09/24 22:30 Oxcarbazepine 150 Mg Tablet GT 01/07/25 08:59 300 mg BID RE Administration Sennosides 8.8 mg 12/08/24 08:13 Sennosides Syrup 8.8 Mg/5 Ml Udc GT 01/07/25 08:06 QDAY PRN CONSTIPATION Protocol Sodium Chloride 3 ml 12/07/24 22:12 12/10/24 00:59 Sodium Chloride Rt Gisele 0.9% 3 Ml Nebu INH 01/06/25 22:11 3 ml PRN PRN Administration SOLN Plan 79M with history of CVA, PEG tube, and recurrent pneumonia admitted for septic shock likely secondary to HAP, now stable on antibiotics and oxygen after rapid response for hypotension. Repeat KUB today still reads SBO pattern, small bowel gastrografin enema XR ordered. #Severe Sepsis ? likely HAP/aspiration pneumonia Patient with recurrent pneumonia now with hypoxia and initial hypotension, previously improving on antibiotics and fluids. O2 sat now 92% on 4L NC (was 100% on 5L yesterday). Patient had an emesis episode overnight (non-bloody, non- bilious). Sputum culture still pending. CXR shows bilateral perihilar infiltrates. Lactic acid improved (6.3 --> 5.8 --> 3.3 -> 2.4). WBC 6.0, CRP 32.0, Procalcitonin 5.48. Plan: * Continue Zosyn 3.375g IV q8h and Doxycycline 100mg IV BID * Continue acetylcysteine inhaler. * Called RT to perform deep suctioning due to increased secretion * Monitor O2 saturation, currently 92% on 4L NC * Continue aspiration precautions (HOB >30?) * Continue IV maintenance fluids * Hold all PO/G-tube meds * Monitor I&Os * Await sputum culture results * Monitor for recurrence of emesis or aspiration signs #SBO Persistent SBO pattern on serial KUBs. BM occurred yesterday. No abdominal distension today. Patient pulled out NG tube; mittens placed, re-ordering NG tube, CXR pending to confirm placement. Plan: * Reinsert NG tube, confirm with CXR * General surgery consult placed * Keep patient NPO * Monitor for abdominal changes, emesis, BM #Hypernatremia Sodium increased to 154 from 148 yesterday. Free water deficit calculated at 4.3L. Plan: * Continue D5W at 100 mL/hr for free water repletion * Monitor serum sodium q4h * Reassess fluid balance and I/Os #Hypokalemia and Hypophosphatemia K today 3.2, Phos 1.9. Plan: * Repleted with potassium phosphate 22.5 mmol * Recheck K and Phos tomorrow #Sinus tachycardia ? likely secondary to infection Sinus tachycardia on EKG, likely reactive due to sepsis. TSH 2.77, free T4 0.68 (rules out thyrotoxicosis). HR stable on monitoring. Plan: * Monitor vitals and telemetry * Diltiazem discontinued. VS Stable. * No intervention for thyroid labs at this time #Huynh-associated bacteriuria vs UTI UA: 98 WBCs, 54 RBCs, 4+ bacteria, nitrite+, LE+. Patient afebrile, no systemic symptoms, likely colonization. Plan: * Await urine culture results * Monitor for fever/systemic signs * Empirically treated per plan above #Subclinical hypothyroidism Free T4 low (0.68), TSH normal (2.77), no symptoms. Plan: * No treatment needed * Recheck TSH/free T4 outpatient if needed #CVA with PEG, aphasia, hemiplegia Chronic deficits, patient nonverbal and somnolent at baseline, no acute neuro change. Plan: * Maintain aspiration precautions * Support PEG feeds * Reposition regularly * Resume PT/OT per SNF plan when stable #History of PE on Eliquis Anticoagulation held due to sepsis/hypotension; no signs of bleeding. Plan: * Hold Eliquis 5mg * Monitor Hgb and vitals * Aspirin 81mg resumed #GERD #HLD #HTN #History of cocci Chronic, no active issues. Plan: * Continue home meds as appropriate * Hold amlodipine for low BP * Continue atorvastatin 40 mg PO Health Maintenance Disposition: Med Surg Diet: NPO (PEG feeds) DVT prophylaxis: Pt on aspirin and Eliquis GI prophylaxis: Famotidine 20mg Huynh: Present Lines: PIV O2: titrate to goal of >98% Code Status: DNR ----- Plan discussed with attending physician Dr. Antonio and senior resident Dr. Luis Antonio MD PGY-1 Internal Medicine Attending Provider Attestation/Addendum Mercy Pablo DO, attest that I was physically present for the rodriguez portions of the service and evaluated the patient with the resident and I reviewed and discussed the case with the resident and agree with the resident's findings and plans of care as documented above Patient seen and eval this a.m. Patient removed his NG tube overnight and has been uncooperative with placement of new NG tube. Consulted surgery due to concern for SBO that is not resolving. KUB shows a SBO. However, patient appears to be having large bowel movements. Will follow-up with surgery recs. Sodium has been elevated at 154. Will start patient on D5 to sodium. Holding PEG tube feedings due to concern for SBO. Also held Eliquis if patient is in need of any surgical interventions in the near future.
--- NOTE | 2024-12-10 09:39 | PC.SS ---
Update: Patient is pending surgery consult regarding SBO.
[2024-12-10] MEDS: POTASSIUM PHOS 22.5 MMOL in SODIUM CHLORIDE 0.9% 500 ML 500 ML 82.778 MMOL IV (10:13)
[2024-12-10] MEDS: DEXTROSE 5%-WATER 1,000 ML 100 ML IV ×2 (10:16→22:03)
[2024-12-10 10:37] LABS: Sodium 155 mMol/L (136-145)
--- NOTE | 2024-12-10 11:47 | XR_ITS ---
Examination: AP chest single view Technique one AP portable semiupright chest single view Date and time: December 10, 2024 1157 hours Comparison December 10, 2024 1204 hours INDICATIONS: Post procedure orogastric tube FINDINGS: Poor inspiratory effort chest x-ray Bilateral perihilar pneumonia No orogastric tube is visible The osseous structures are demineralized IMPRESSION: Bilateral perihilar pneumonia
[2024-12-10 14:15] LABS: Sodium 154 mMol/L (136-145)
--- NOTE | 2024-12-10 15:19 | PC.SS ---
Rounding Note: Dr. Blandon is consulting on case. Patient from SNF will return once medically cleared.
--- NOTE | 2024-12-10 16:14 | XR_ITS ---
EXAMINATION: Abdomen, supine, upright 2 views. Technique: Abdomen AP upright, supine 2 views Date and time of exam: December 10, 2024, 1640 hours INDICATIONS: Abdominal distention this week FINDINGS: Multiple air distended small bowel loops Prominent osteopenia. Gastrostomy tube in the stomach IMPRESSION: Small bowel obstruction pattern
--- NOTE | 2024-12-10 16:14 | PD.SURCONS ---
HPI Consult details History of present illness: 79M with HTN, HLD, hx of CVA leading to R sided weakness, aphasia and dysphagia s/p PEG, PE on eliquis and recurrent pneumonia who was admitted 12/08 from [facility] for shortness of breath, being treated for recurrent pneumonia. On admission pt underwent AXR read as SBO but has been having BMs, yesterday underwent attempted small bowel series but he vomited after receiving gastrografin. Pt did have an NG in place last night but he removed it and on my exam RN was in the process of replacing it. She reported he had a large BM today and has not had any vomiting PMH: HTN, HLD, PE, GERD, CVA PSHx: PEG Meds: includes eliquis Review of Systems Review of Systems ROS Unobtainable: unobtainable due to mental condition Meds Home Medications and Allergies Home Medications ?Medication ?Instructions ?Recorded ?Confirmed ?Type amlodipine 10 mg tablet 10 mg feeding tube QDAY 06/17/24 12/08/24 History Held on 11/02/24. Instructions: BP stable while inpatient. Hold until follow-up with PCP, or can continue if BP elevated back at facility. apixaban 5 mg tablet (Eliquis) 5 mg feeding tube BID 06/17/24 12/08/24 History atorvastatin 80 mg tablet (Lipitor) 40 mg feeding tube QDAY 06/17/24 12/08/24 History docusate sodium 100 mg tablet 100 mg PO QDAY 06/17/24 12/08/24 History famotidine 20 mg tablet 20 mg feeding tube QDAY 06/17/24 12/08/24 History fenofibrate nanocrystallized 145 145 mg PO QDAY 06/17/24 12/08/24 History mg tablet fluconazole 200 mg tablet 200 mg feeding tube QDAY 06/17/24 12/08/24 History melatonin 3 mg tablet 3 mg PO HS PRN Insomnia 06/17/24 12/08/24 History oxcarbazepine 300 mg tablet 300 mg feeding tube BID 06/17/24 12/08/24 History doxazosin 1 mg tablet 1 mg PO QDAY 10/19/24 12/08/24 History pregabalin 20 mg/mL oral solution 20 mg PO BID 10/19/24 12/08/24 History lidocaine HCl 2 % mucosal solution 15 ml PO Q4HR PRN face pain from 10/31/24 12/08/24 History (Lidocaine Viscous) trigeminal neuralgia tramadol 50 mg tablet 50 mg feeding tube Q6H PRN pain 10/31/24 12/08/24 History aspirin 81 mg tablet 81 mg PO QDAY 12/08/24 12/08/24 History cranberry 500 mg capsule 500 mg PO QDAY 12/08/24 12/08/24 History ipratropium 0.5 mg-albuterol 3 mg 3 ml inhalation Q6H PRN shortness 12/08/24 12/08/24 History (2.5 mg base)/3 mL nebulization of breath or wheezing soln multivit with minerals-iron 18 1 tab PO QDAY 12/08/24 12/08/24 History mg-folic ac 400 mcg-vit K 25 mcg tablet (Adults Multivitamin) Allergies Allergy/AdvReac Type Severity Reaction Status Date / Time No Known Allergies Allergy Verified 12/07/24 20:10 Exam Vital Signs Temp Pulse Resp BP Pulse Ox O2 Del Method O2 Flow Rate 97.9 F 91 19 132/72 H 99 Nasal Cannula 1 12/10/24 12:00 12/10/24 13:38 12/10/24 13:38 12/10/24 12:00 12/10/24 13:38 12/10/24 12:00 12/10/24 13:38 Constitutional Constitutional: no acute distress Routine Respiratory Exam Respiratory: Present rhonchi Routine Abdominal Exam Abdominal: Present soft and drain (PEG clamped); Absent tenderness or distended Results Results: Laboratory Laboratory results: results reviewed Results: Imaging Abdominal x-ray: report reviewed and image reviewed Assessment & Plan Plan 79M with HTN, HLD, hx of CVA leading to R sided weakness, aphasia and dysphagia s/p PEG, PE on eliquis and recurrent pneumonia who was admitted 12/08 from [facility] for shortness of breath, being treated for recurrent pneumonia, with radiographic findings of SBO but having BMs F/u repeat AXR, if contrast in colon ok to remove NG
[2024-12-10 18:52] LABS: Sodium 154 mMol/L (136-145)
[2024-12-10] MEDS: ATORVASTATIN CALCIUM 20 MG TABLET 40 MG GT (21:57)
[2024-12-10] MEDS: DOXYCYCLINE INJ 100 MG in SODIUM CHLORIDE 0.9% (POP) 100 ML IV (21:57)
[2024-12-10 22:38] LABS: Sodium 154 mMol/L (136-145)
[2024-12-11] VITALS (10 sets, daily range): BP systolic 121–139; BP diastolic 62–77; PULSE 69–100; RESP 15–24; TEMP 36–36.8; O2SAT 92–100; BMI 25.0
[2024-12-11] MEDS: ACETYLCYSTEINE RT SOL 10% 4 ML NEBU INH ×4 (00:31→18:54)
[2024-12-11] MEDS: LEVALBUTEROL RT 1.25 MG/0.5 ML NEBU INH ×4 (00:31→18:54)
[2024-12-11] MEDS: ONDANSETRON INJ 2 MG/ML INJ 2 ML 4 MG IVP (01:09)
[2024-12-11] MEDS: ACETAMINOPHEN SOL 325 MG/10 ML UDC 650 MG GT (01:09)
[2024-12-11] MEDS: PIPER/TAZO 3.375 GM PREMIX 3.375 GM/50 ML BAG IV ×3 (05:18→21:35)
[2024-12-11 06:09] LABS: Basophils # (Auto) 0.0 Thou/mm3 (0.0-0.2); Basophils % (Auto) 0 % (0-2.5); Eosinophils # (Auto) 0.0 Thou/mm3 (0.0-0.5); Eosinophils % (Auto) 0 % (0-10); Hematocrit 28.7 % (41.0-53.0); Hemoglobin 9.7 g/dL (13.5-16.0); Immature Granulocytes Auto 0.08 Thou/mm3 (0.00-0.00); Lymphocytes # (Auto) 0.7 Thou/mm3 (1.0-4.8); Lymphocytes % (Auto) 16 % (10-50); Mean Corpuscular HGB Conc 33.8 g/dl (31.0-37.0); Mean Corpuscular Hemoglobin 31.5 pg (25.0-35.0); Mean Corpuscular Volume 93 fL (80-100); Monocytes # (Auto) 0.4 Thou/mm3 (0.0-0.8); Monocytes % (Auto) 9 % (0-12); Neutrophils # (Auto) 3.1 Thou/mm3 (1.8-7.7); Neutrophils % (Auto) 73 % (37-80); Nucleated Red Blood Cell # 0.02 Thou/mm3 (0.00-0.00); Nucleated Red Blood Cell % 1 /100 WBC (0); Platelet Count 272 Thou/mm3 (140-440); RDW Standard Deviation 52.1 fL (35.1-43.9); Red Blood Count 3.08 Miln/mm3 (4.50-5.90); White Blood Count 4.2 Thou/mm3 (3.8-10.6)
[2024-12-11 06:50] LABS: Alanine Aminotransferase 12 U/L (10-49); Albumin, Serum 2.7 gm/dL (3.4-4.8); Albumin/Globulin Ratio 1.0 (1.2-2.2); Alkaline Phosphatase 34 U/L (46-116); Anion Gap 11 (7-16); Aspartate Amino Transferase 23 U/L (0-34); BUN/Creatinine Ratio 41 Ratio (12-20); Bilirubin,Total 0.4 mg/dL (0.3-1.2); Blood Urea Nitrogen 33 mg/dL (9-23); Calcium 8.4 mg/dL (8.3-10.6); Calcium (Corrected) 9.4 mg/dL (8.5-10.1); Carbon Dioxide 27.3 mMol/L (20.0-31.0); Chloride 115 mMol/L (98-107); Creatinine (Component) 0.8 mg/dL (0.6-1.3); Estimated Creatinine Clearance 68.7 mL/min (>60); Globulin 2.8 gm/dL (2.3-3.5); Glucose 153 mg/dL (74-106); Magnesium 2.1 mg/dL (1.6-2.6); Osmolality,Calculated 313 (275-295); Phosphorous 1.4 mg/dL (2.4-5.1); Potassium 3.3 mMol/L (3.4-5.1); Sodium 153 mMol/L (136-145); Total Protein 5.5 gm/dL (5.7-8.2); eGFR > 60 See Note
--- NOTE | 2024-12-11 08:28 | XR_ITS ---
Examination: CT abdomen with intravenous contrast CT pelvis with intravenous contrast 2-D coronal reconstructions 2-D sagittal reconstructions Date and time of exam:December 11, 2024 0906 hours INDICATIONS: Generalized abdominal pain today, abdomen examination December 10, 2024 small bowel obstruction pattern. CTDI: vol (mGy) 13.9 DLP: (mGycm) 9.23 Technique: Multiple axial sections of the abdomen and pelvis have been obtained. 64 slice high-resolution scanner used. 3 mm axial sections have been obtained, post intravenous injection 60 cc [id number] 2-D sagittal, coronal reconstructions obtained. Low dose protocols were performed. One or more of the following dose reduction techniques were used; automated exposure control, adjustment of the mA and/or KV according to patient size, use of iterative reconstruction technique. Findings: Pneumonia right base with moderate right pleural fluid Pericardial effusion up to 10 mm No visualized liver or splenic lesion Fluid subcapsular to the spleen measuring up to 16 mm No adrenal mass Contracted gallbladder Abundant stool in the colon Multiple fluid distended small bowel loops No free air Significant prostatomegaly medial lateral dimension 6.8 cm Urinary bladder is contracted around a Huynh catheter with possible blood in the urinary bladder Very large amounts of stool in the rectum with thickening the rectal wall Severe osteopenia IMPRESSION: Pneumonia right base Moderate right pleural fluid High-grade small bowel obstruction, consider Gastrografin small bowel series follow-up Significant prostatomegaly Urinary bladder contracted around a Huynh catheter with possible blood in the urinary bladder, clinical correlation advised Very large amounts of stool in the rectum with thickening the rectal wall, differential would include proctitis
--- NOTE | 2024-12-11 09:25 | PC.SS ---
Update: Surgery remains consulting on the case.
--- NOTE | 2024-12-11 09:40 | PC.SS ---
Updated clinicals submitted to [facility] on [facility] platform.
[2024-12-11] MEDS: POTASSIUM PHOS 22.5 MMOL in SODIUM CHLORIDE 0.9% 500 ML 500 ML 82.778 MMOL IV (09:56)
[2024-12-11] MEDS: DOXYCYCLINE INJ 100 MG in SODIUM CHLORIDE 0.9% (POP) 100 ML IV ×2 (10:03→21:35)
[2024-12-11] MEDS: DEXTROSE 5%-WATER 1,000 ML 125 ML IV ×2 (10:03→22:21)
[2024-12-11 10:29] LABS: Sodium 152 mMol/L (136-145)
--- NOTE | 2024-12-11 11:16 | ESPR_ITS ---
<Statement entered by Jcarlos Aguayo MD - 12/11/24 16:01> Patient seen and examined at bedside. I discussed and supervised with the transportation logistics internship physician who took care of this patient. I personally saw and examined the patient. I agree with most of the assessment and plan. CT showed significant stool burden throughout small bowel and colon. Manual disimpaction performed, with significant stool removed. Small amount of blood per rectum, likely hemorrhoids, lidocaine cream ordered. Will monitor overnight, consider resuming tube feeds with free water flushes in the morning. Hypernatremia unchanged, increased D5W to 125 ml/hr. Plan of care discussed with attending Dr. Antonio. Jcarlos Aguayo MD PGY-2 Documentation for date of: 12/11/24 Subjective Subjective Interval history: Patient seen and evaluated at bedside. He remains nonverbal at baseline but was awake and calm. Per nursing staff, patient had three bowel movements overnight. NG tube has not yet been replaced. Patient denies any abdominal pain this morning. He was being prepped for CT abdomen at the time of evaluation. No new complaints reported. Exam Vital Signs Temp Pulse Resp BP Pulse Ox O2 Del Method O2 Flow Rate 97.2 F 75 20 121/62 100 Nasal Cannula 1 12/11/24 08:00 12/11/24 10:12 12/11/24 08:00 12/11/24 10:12 12/11/24 08:00 12/11/24 08:00 12/11/24 08:00 Narrative Exam General: Somnolent but at baseline, nonverbal, sleeping comfortably HEENT: Mucous membranes moist CV: RRR, no murmurs Pulm: CTAB no retractions; sat 98% on 1.5L O2 Abd: Soft mildly distended, nontender, PEG tube clean and intact Neuro: A&O x1, baseline right hemiplegia and facial droop Skin: Intact, no rashes or ulcers Objective Labs 12/12/24 04:44 12/12/24 04:44 Labs: Laboratory Results - last 24 hr 12/10/24 12/10/24 12/10/24 13:39 18:12 22:16 WBC RBC Hgb Hct MCV MCH MCHC RDW Std Deviation Plt Count Neut % (Auto) Lymph % (Auto) Lamb % (Auto) Eos % (Auto) Baso % (Auto) Neut # (Auto) Lymph # (Auto) Lamb # (Auto) Eos # (Auto) Baso # (Auto) Immature Gran # (Auto) Absolute Nucleated RBC Immature Gran % Nucleated RBC % Sodium 154 H 154 H 154 H Potassium Chloride Carbon Dioxide Anion Gap BUN Creatinine Estim Creat Clear Calc eGFR BUN/Creatinine Ratio Glucose Calculated Osmolality Calcium Corrected Calcium Phosphorus Magnesium Total Bilirubin AST ALT Alkaline Phosphatase Total Protein Albumin Globulin Albumin/Globulin Ratio 12/11/24 12/11/24 05:41 09:50 WBC 4.2 RBC 3.08 L Hgb 9.7 L Hct 28.7 L MCV 93 MCH 31.5 MCHC 33.8 RDW Std Deviation 52.1 H Plt Count 272 Neut % (Auto) 73 Lymph % (Auto) 16 Lamb % (Auto) 9 Eos % (Auto) 0 Baso % (Auto) 0 Neut # (Auto) 3.1 Lymph # (Auto) 0.7 L Lamb # (Auto) 0.4 Eos # (Auto) 0.0 Baso # (Auto) 0.0 Immature Gran # (Auto) 0.08 H Absolute Nucleated RBC 0.02 H Immature Gran % 2 H Nucleated RBC % 1 H Sodium 153 H 152 H Potassium 3.3 L Chloride 115 H Carbon Dioxide 27.3 Anion Gap 11 BUN 33 H Creatinine 0.8 Estim Creat Clear Calc 68.7 eGFR > 60 BUN/Creatinine Ratio 41 H Glucose 153 H Calculated Osmolality 313 H Calcium 8.4 Corrected Calcium 9.4 Phosphorus 1.4 L Magnesium 2.1 Total Bilirubin 0.4 AST 23 ALT 12 Alkaline Phosphatase 34 L Total Protein 5.5 L Albumin 2.7 L Globulin 2.8 Albumin/Globulin Ratio 1.0 L ABG Interpretation ABG results: 12/07/24 12/08/24 20:42 07:22 ABG pH 7.44 7.44 ABG pCO2 31 L 33 ABG pO2 68 L 88 D ABG HCO3 21 22 ABG O2 Saturation 95 98 ABG Base Excess -3 -1 Quality Measures Quality Measures VTE prophylaxis Advance care planning discussed with:: patient Assessment & Plan Assessment Current Active Medications: Generic Name Dose Route Start Last Admin Trade Name Freq PRN Reason Stop Dose Admin Acetaminophen 650 mg 12/07/24 22:27 12/11/24 01:09 Acetaminophen Gisele 325 Mg/10 Ml Udc GT 01/06/25 22:26 650 mg Q4HR PRN Administration Pain Or Fever > 100 Acetylcysteine 4 ml 12/08/24 01:00 12/11/24 06:34 Acetylcysteine Rt Gisele 10% 4 Ml Nebu INH 01/07/25 00:59 4 ml Q6HRRT RE Administration Apixaban 5 mg 12/10/24 09:45 12/10/24 10:53 Apixaban 2.5 Mg Tablet GT 01/09/25 09:44 Not Given BID RE Aspirin 81 mg 12/08/24 09:00 12/11/24 10:11 Aspirin 81 Mg Chew GT 01/07/25 08:59 Not Given QDAY RE Atorvastatin Calcium 40 mg 12/08/24 21:00 12/10/24 21:57 Atorvastatin Calcium 20 Mg Tablet GT 01/07/25 20:59 40 mg HS RE Administration Bisacodyl 10 mg 12/08/24 14:05 Bisacodyl 10 Mg Supp NC 01/07/25 14:04 QDAY PRN CONSTIPATION Protocol Doxazosin Mesylate 1 mg 12/08/24 09:00 12/11/24 10:12 Doxazosin Mesylate 1 Mg Tablet GT 01/07/25 08:59 Not Given QDAY RE Famotidine 20 mg 12/08/24 09:00 12/10/24 10:52 Famotidine 20 Mg Tablet GT 01/07/25 08:59 Not Given QDAY RE Fenofibrate 145 mg 12/08/24 09:00 12/11/24 10:12 Fenofibrate 145 Mg Tablet (Non-Formulary) GT 01/07/25 08:59 Not Given QDAY RE Fluconazole 200 mg 12/08/24 09:00 12/11/24 10:12 Fluconazole Susp 40 Mg/Ml Ml GT 12/15/24 08:59 Not Given QDAY RE Doxycycline Hyclate 100 mg/ 100 mls @ 100 mls/hr 12/08/24 09:00 12/11/24 10:03 Sodium Chloride IV 12/15/24 08:59 100 mls/hr BID RE Administration Piperacillin/Tazobactam/Dextrose 3.375 gm in 50 mls @ 12.5 mls/hr 12/08/24 14:00 12/11/24 05:18 Zosyn IV 12/15/24 05:59 12.5 mls/hr Q8HR RE Administration Protocol Dextrose 1,000 mls @ 125 mls/hr 12/11/24 07:01 12/11/24 10:03 D5w IV 01/10/25 06:59 125 mls/hr .Q8H RE Administration Potassium Phosphate 22.5 mmol/ 507.5 mls @ 82.778 mls/hr 12/11/24 08:31 12/11/24 09:56 Sodium Chloride IV 12/11/24 14:38 82.778 mls/hr X1 ONE Administration Levalbuterol HCl 1.25 mg 12/08/24 01:00 12/11/24 06:34 Levalbuterol Rt 1.25 Mg/0.5 Ml Nebu INH 01/07/25 00:59 1.25 mg Q6HRRT RE Administration Ondansetron HCl 4 mg 12/07/24 22:12 12/11/24 01:09 Ondansetron Inj 2 Mg/Ml Inj 2 Ml IVP 01/06/25 22:11 4 mg Q6H PRN Administration NAUSEA OR VOMITING Protocol Oxcarbazepine 300 mg 12/08/24 09:00 12/11/24 10:12 Oxcarbazepine 150 Mg Tablet GT 01/07/25 08:59 Not Given BID RE Pantoprazole Sodium 40 mg 12/10/24 10:30 12/11/24 10:06 Pantoprazole Inj 40 Mg Vial IVP 01/09/25 10:29 40 mg QDAY RE Administration Sennosides 8.8 mg 12/08/24 08:13 Sennosides Syrup 8.8 Mg/5 Ml Udc GT 01/07/25 08:06 QDAY PRN CONSTIPATION Protocol Sodium Chloride 3 ml 12/07/24 22:12 12/10/24 18:26 Sodium Chloride Rt Gisele 0.9% 3 Ml Nebu INH 01/06/25 22:11 3 ml PRN PRN Administration SOLN Plan 79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 #Severe Sepsis ? likely HAP/aspiration pneumonia Previously admitted for recurrent pneumonia with sepsis and hypoxia. Now stable on Zosyn and Doxy. Cultures negative (blood, sputum, MRSA). O2 sat stable at 98% on 1.5L NC. CXR shows bilateral perihilar infiltrates. Lactic acid improved (6.3 --> 5.8 --> 3.3 -> 2.4). WBC 6.0, CRP 32.0, Procalcitonin 5.48. CT abdomen shows new right lower lobe pneumonia and moderate right pleural effusion. Plan: * Continue Zosyn 3.375g IV q8h (Start date 12/08-) and Doxycycline 100mg IV BID (Start date 12/08-) * Monitor for progression of pneumonia or effusion clinically * Continue acetylcysteine and levalbuterol nebulizers * Titrate O2 as needed to maintain SpO2 > 92% * Continue aspiration precautions (HOB >30?) * Continue IV fluids * Monitor for new signs of infection #SBO KUBs and CT abdomen show persistent high-grade small bowel obstruction. Patient had small to medium stool output after enema. Denies abdominal pain. NG still not in place. CT also shows large stool burden in rectum with rectal wall thickening concerning for possible proctitis. General surgery consulted and notes that if contrast reaches colon, NG may not be needed. Plan: * Reassess need for NG tube with general surgeon * Consider fecal disimpaction * Continue enemas PRN to relieve stool burden * Monitor for signs of proctitis (fever, pain, bleeding) * Continue NPO * Monitor for vomiting, distension, output #Hypernatremia Na remains elevated at 153 (up from 148 on 12/09) despite D5W. Plan: * Increase D5W to 125 mL/hr * Repeat serum sodium q4h * Monitor for fluid overload #Hypokalemia and Hypophosphatemia K 3.3, Phos 1.4 ? repleted this morning with potassium phosphate 22.5 mmol Plan: * Monitor daily BMP and Phos * Repeat repletion as needed #Anemia ? normocytic, stable Hgb dropped from 10.9 --> 9.7 today, no overt signs of bleeding Plan: * Monitor serial CBCs * Monitor hemodynamic status * No transfusion at this time #History of PE on Eliquis Anticoagulation held due to GI issues and SBO management Plan: * Hold Eliquis * Monitor Hgb and signs of bleeding or thrombosis #CVA with PEG, aphasia, hemiplegia Chronic deficits, no acute changes Plan: * Maintain aspiration precautions * Reposition regularly * Continue to hold PO/GT meds for now #Chronic comorbidities ? HTN, HLD, GERD, cocci Stable, no acute concerns Plan: * Continue atorvastatin, Protonix IV, hold other GT meds as appropriate Health Maintenance Disposition: Med Surg Diet: NPO DVT prophylaxis: Patient on aspirin (Eliquis held) GI prophylaxis: Protonix 40 mg IV Verma: Present Lines: PIV O2: 1.5L via NC Code Status: DNR ----- Plan discussed with attending physician Dr. Antonio and senior resident Dr. Luis Antonio MD PGY-1 Internal Medicine Attending Provider Attestation/Addendum Mercy Pablo DO, attest that I was physically present for the rodriguez portions of the service and evaluated the patient with the resident and I reviewed and discussed the case with the resident and agree with the resident's findings and plans of care as documented above Patient seen and evaluated this AM. Patient had a large BM last night, but KUB appears unchanged. Patient continues to have discomfort on palpation of abdomen, but no episodes of emesis. PEG tube placed to gravity with no output. CT abd/ pelvis shows high grade SBO and heavy stool burden. Patient underwent manual disimpaction, will repeat KUB in AM. Possible blood noted in bladder around verma. Eliquis has been on hold. Patient did remove his verma a few days prior to admission and during admission, which may have caused some trauma while on anticoagulation. Family updated and would like for any interventions to be done if necessary. Case discussed with surgeon, will f/u with recommendations.
--- NOTE | 2024-12-11 11:39 | PC.SS ---
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 Authorization is not required upon return based on [employer] covering placement.
--- NOTE | 2024-12-11 14:30 | PC.SS ---
Rounding Note: Surgery consulting on case. D/C date pending.
[2024-12-11] MEDS: LIDOCAINE 5% HEMORRHOIDAL CREAM 30 GM TUBE TOP (18:03)
--- NOTE | 2024-12-11 20:09 | PC.NURSE ---
called Dr. Ferreira regarding patient's PEG tube, patient's Peg now draining by gravity to help with decompression, per doctor okay to give PEG tube medications for tonight. No new orders to replace NG.
--- NOTE | 2024-12-11 22:58 | PC.NURSE ---
called Dr. Ferreira regarding if patient requiring blood sugar checks as patient's feedings have been on hold for a few days but is running fluids D5 water. Per doctor will check patient's chart, no new orders received.
[2024-12-12] VITALS (13 sets, daily range): BP systolic 106–139; BP diastolic 54–74; PULSE 60–85; RESP 16–22; TEMP 35.9–36.5; O2SAT 93–100
[2024-12-12] MEDS: ACETAMINOPHEN SOL 325 MG/10 ML UDC 650 MG GT (00:45)
[2024-12-12] MEDS: ACETYLCYSTEINE RT SOL 10% 4 ML NEBU INH ×4 (00:54→18:35)
[2024-12-12] MEDS: LEVALBUTEROL RT 1.25 MG/0.5 ML NEBU INH ×4 (00:54→18:35)
[2024-12-12] MEDS: PIPER/TAZO 3.375 GM PREMIX 3.375 GM/50 ML BAG IV ×3 (05:31→23:06)
[2024-12-12 05:49] LABS: Basophils # (Auto) 0.0 Thou/mm3 (0.0-0.2); Basophils % (Auto) 0 % (0-2.5); Eosinophils # (Auto) 0.0 Thou/mm3 (0.0-0.5); Eosinophils % (Auto) 1 % (0-10); Hematocrit 27.3 % (41.0-53.0); Hemoglobin 9.4 g/dL (13.5-16.0); Immature Granulocytes Auto 0.24 Thou/mm3 (0.00-0.00); Lymphocytes # (Auto) 1.2 Thou/mm3 (1.0-4.8); Lymphocytes % (Auto) 23 % (10-50); Mean Corpuscular HGB Conc 34.4 g/dl (31.0-37.0); Mean Corpuscular Hemoglobin 30.9 pg (25.0-35.0); Mean Corpuscular Volume 90 fL (80-100); Monocytes # (Auto) 0.4 Thou/mm3 (0.0-0.8); Monocytes % (Auto) 9 % (0-12); Neutrophils # (Auto) 3.2 Thou/mm3 (1.8-7.7); Neutrophils % (Auto) 63 % (37-80); Nucleated Red Blood Cell # 0.00 Thou/mm3 (0.00-0.00); Nucleated Red Blood Cell % 0 /100 WBC (0); Platelet Count 289 Thou/mm3 (140-440); RDW Standard Deviation 49.3 fL (35.1-43.9); Red Blood Count 3.04 Miln/mm3 (4.50-5.90); White Blood Count 5.1 Thou/mm3 (3.8-10.6)
--- NOTE | 2024-12-12 06:00 | PC.NURSE ---
informed Dr. Ferreira regarding patient having crackles in lung sound when inhaling and exhaling, patient's oxygen on 4L NC is 95%, patient is running fluids at 125mL/hr D5 in water, per Doctor will make a note and let the day team know.
[2024-12-12 06:08] LABS: Alanine Aminotransferase 12 U/L (10-49); Albumin, Serum 2.5 gm/dL (3.4-4.8); Albumin/Globulin Ratio 0.9 (1.2-2.2); Alkaline Phosphatase 33 U/L (46-116); Anion Gap 6 (7-16); Aspartate Amino Transferase 22 U/L (0-34); BUN/Creatinine Ratio 30 Ratio (12-20); Bilirubin,Total 0.4 mg/dL (0.3-1.2); Blood Urea Nitrogen 18 mg/dL (9-23); Calcium 8.3 mg/dL (8.3-10.6); Calcium (Corrected) 9.5 mg/dL (8.5-10.1); Carbon Dioxide 28.8 mMol/L (20.0-31.0); Chloride 114 mMol/L (98-107); Creatinine (Component) 0.6 mg/dL (0.6-1.3); Estimated Creatinine Clearance 91.6 mL/min (>60); Globulin 2.7 gm/dL (2.3-3.5); Glucose 123 mg/dL (74-106); Magnesium 1.8 mg/dL (1.6-2.6); Osmolality,Calculated 299 (275-295); Phosphorous 1.5 mg/dL (2.4-5.1); Potassium 3.1 mMol/L (3.4-5.1); Sodium 149 mMol/L (136-145); Total Protein 5.2 gm/dL (5.7-8.2); eGFR > 60 See Note
[2024-12-12] MEDS: DEXTROSE 5%-WATER 1,000 ML 125 ML IV (06:45)
--- NOTE | 2024-12-12 07:30 | XR_ITS ---
Examination: Abdomen AP single view Technique: AP portable supine abdomen, single view Exam date and time: December 12, 2024 0716 hours INDICATIONS: Abdominal distention this week. FINDINGS: Gastrostomy tube overlies the stomach Significantly air distended small bowel loops No free air Moderate stool in the colon IMPRESSION: Small bowel obstruction pattern
[2024-12-12] MEDS: POT PHOS 15 mMol in NS 250 ML 15 MMOL/250 ML BAG 62.5 MMOL IV ×2 (09:15→13:45)
--- NOTE | 2024-12-12 09:44 | ESPR_ITS ---
Documentation for date of: 12/12/24 Subjective Subjective Brief History: 79M with HTN, HLD, hx of CVA leading to R sided weakness, aphasia and dysphagia s/p PEG, PE on eliquis and recurrent pneumonia who was admitted 12/08 from [facility] for shortness of breath, being treated for recurrent pneumonia. On admission pt underwent AXR read as SBO but has been having BMs, yesterday underwent attempted small bowel series but he vomited after receiving gastrografin. Pt did have an NG in place last night but he removed it and on my exam RN was in the process of replacing it. She reported he had a large BM today and has not had any vomiting PMH: HTN, HLD, PE, GERD, CVA PSHx: PEG Meds: includes eliquis Narrative: Yesterday patient underwent CTAP with findings of high-grade SBO, abundant stool in the rectum. Patient had a bowel movement and also underwent fecal disimpaction with removal of a fair amount of stool. He has not had any vomiting since receiving Gastrografin 3 days ago, but the PEG has been set to drainage and so far today has had 400 cc output. He has remained afebrile with normal WBC, potassium and Phos are low and are being repleted. This morning patient did have more stool output Exam Vital Signs Temp Pulse Resp BP Pulse Ox O2 Del Method O2 Flow Rate 96.7 F L 67 18 122/59 L 100 Nasal Cannula 1 12/12/24 07:55 12/12/24 07:55 12/12/24 07:55 12/12/24 07:55 12/12/24 07:55 12/12/24 07:55 12/12/24 07:55 Constitutional Constitutional: no acute distress Routine Respiratory Exam Respiratory: Present no resp distress Routine Abdominal Exam Abdominal: Present soft, tenderness (Mild diffuse tenderness), distended (Moderate distention) and drain (PEG with bilious drainage); Absent rebound or g uarding Results Results: Laboratory Laboratory results: results reviewed Results: Imaging Abdominal x-ray: report reviewed and image reviewed CT scan - abdomen: report reviewed and image reviewed Assessment & Plan Plan 79M with HTN, HLD, hx of CVA leading to R sided weakness, aphasia and dysphagia s/p PEG, PE on eliquis and recurrent pneumonia who was admitted 12/08 from [facility] for shortness of breath, being treated for recurrent pneumonia, with radiographic findings of SBO. Clinically patient does have some distention, and his PEG tube is draining gastric contents but he has not had any vomiting for the past 3 days and has had multiple bowel movements during this time. At this point it is unclear if patient has a mechanical obstruction, but as he is hemodynamically normal and not requiring strong pain medications I will appreciate GI recommendations and in the meantime requested cardiology evaluation in case pt does ultimately require surgical intervention F/u repeat electrolytes this afternoon Appreciate GI, cardiology recs Will continue to follow
--- NOTE | 2024-12-12 09:46 | ECHO_ITS ---
Transthoracic Echo Report Ht (in): 66 Wt (lb): 167 Exam Location: Echo Lab Status: Inpatient Fish Boning Machine Feeder: Carmen Baxter Indications: Procedure Performed: BP: 113 / 73 HR: 78 Technical Quality: Technically difficult study MEASUREMENTS (Male / Female) Normal Values 2D ECHO LV Diastolic Diameter PLAX 4.7 cm 4.2 - 5.9 / 3.9 - 5.3 cm LV Systolic Diameter PLAX 3.1 cm IVS Diastolic Thickness 1.1 cm 0.6 - 1.0 / 0.6 - 0.9 cm LVPW Diastolic Thickness 1.3 cm 0.6 - 1.0 / 0.6 - 0.9 cm LV Relative Wall Thickness 0.5 LVOT Diameter 2.3 cm Aortic Root Diameter 3.0 cm LA Systolic Diameter LX 3.9 cm 3.0 - 4.0 / 2.7 - 3.8 cm LV Ejection Fraction MOD BP 55.3 % >= 55 % LV Cardiac Index MOD BP 2075.3 cm?/min?m? LV Ejection Fraction MOD 4C 59.2 % LV Cardiac Index MOD 4C 2100.0 cm?/min?m? LV Ejection Fraction 4C AL 60.4 % LV Cardiac Index 4C AL 2234.5 cm?/min?m? LV Ejection Fraction MOD 2C 49.7 % LV Cardiac Index MOD 2C 1881.8 cm?/min?m? LV Ejection Fraction 2C AL 53.1 % LV Cardiac Index 2C AL 2071.9 cm?/min?m? LA Volume Index 17.2 cm?/m? 16 - 28 cm?/m? M-MODE Aortic Root Diameter MM 2.9 cm LA Systolic Diameter MM 3.6 cm LA Ao Ratio MM 1.2 AV Cusp Separation MM 1.8 cm DOPPLER AV Peak Velocity 132.0 cm/s AV Peak Gradient 7.0 mmHg AV Mean Gradient 3.0 mmHg AV Velocity Time Integral 28.4 cm LVOT Peak Velocity 106.6 cm/s LVOT Peak Gradient 4.5 mmHg LVOT Velocity Time Integral 19.1 cm LVOT Cardiac Index 3267.6 cm?/min?m? AV Area Cont Eq vti 2.8 cm? AV Area Cont Eq pk 3.4 cm? MV Area PHT 4.2 cm? Mitral E Point Velocity 48.0 cm/s Mitral A Point Velocity 69.4 cm/s Mitral E to A Ratio 0.7 LV E' Lateral Velocity 9.0 cm/s Mitral E to LV E' Lateral Ratio 5.3 LV E' Septal Velocity 3.8 cm/s Mitral E to LV E' Septal Ratio 12.6 FINDINGS Left Ventricle Normal left ventricular size, systolic function with no obvious regional wall motion abnormalities. Mild LVH. The ejection fraction is visually estimated at 65%. There is grade I diastolic dysfunction of the left ventricle (impaired relaxation pattern). Right Ventricle The right ventricle is normal in size and systolic function. Left Atrium The left atrium is normal by two-dimensional, color flow and Doppler imaging with no structural abnormalities, no thrombus formation present. Right Atrium The right atrium is normal by two-dimensional imaging, color flow and Doppler imaging with no structural abnormalities, no thrombus formation present. Atrial Septum The interatrial septum appears normal with no evidence of a shunt. Aorta The aorta is normal by two-dimensional, color flow and Doppler interrogation. Mitral Valve Mild MAC. Trace MR. Aortic Valve Mild aortic valve sclerosis without stenosis. Tricuspid Valve The tricuspid valve is normal by two-dimensional, color flow and Doppler interrogation. There is mild tricuspid valve regurgitation. Pulmonic Valve The pulmonic valve is not well visualized. There is no significant pulmonic valve regurgitation. Vessels Inferior vena cava not well visualized. Pericardium The pericardium is normal by two-dimensional imaging. There is no significant pericardial effusion. CONCLUSIONS Indication: cardiac clearnce Normal LV size. Mild LVH. Estimated at 65%. There is grade I diastolic dysfunction. The RV is normal in size and systolic function. Mild MAC. Trace MR. Mild aortic valve sclerosis without stenosis. Mild TR. Low cardiac risk for surgery Maria Del Carmen Gustafson (Electronically Signed) Final Date: 13 December 2024 23:50
[2024-12-12] MEDS: DOXYCYCLINE INJ 100 MG in SODIUM CHLORIDE 0.9% (POP) 100 ML IV ×2 (09:47→22:01)
[2024-12-12] MEDS: DOXAZOSIN MESYLATE 1 MG TABLET GT (09:47)
[2024-12-12] MEDS: FLUCONAZOLE SUSP 40 MG/ML ML 200 MG GT (09:47)
[2024-12-12] MEDS: FENOFIBRATE 145 MG TABLET (NON-FORMULARY) GT (09:49)
[2024-12-12] MEDS: ASPIRIN 81 MG CHEW GT (09:49)
[2024-12-12 10:25] LABS: Eosinophils (Manual) 3 % (0-4); Lymphocytes (Manual) 18 % (20-44); Monocytes (Manual) 9 % (2-9); Neutrophils (Manual) 70 % (50-70)
[2024-12-12 10:33] LABS: Sodium 149 mMol/L (136-145)
[2024-12-12 10:54] LABS: INR 1.2 (0.9-1.3); Partial Thromboplastin Time 33.1 Seconds (22.0-36.0); Prothrombin Time 13.4 Seconds (9.0-12.2)
--- NOTE | 2024-12-12 12:45 | PC.SS ---
Update: GI consultation is pending.
--- NOTE | 2024-12-12 13:36 | PC.DIETICIAN ---
Nutrition prescription PPN: D5% AA4.25% at 80 ml/hr with 500 ml 20% lipid 3 times a week (). Start at 40 ml/hr for 8 hrs, then advance to goal of 80 ml/hr. 1920 ml volume, 82 g AA, 96 g dextrose, 1082 total calories, NPC 755. GIR=0.90 / LIR=0.6
--- NOTE | 2024-12-12 13:59 | ESCONSULT_ITS ---
<Statement entered by Mati Albarran MD - 12/16/24 12:46> I personally evaluate the patient examined with PGY 2 Dr. Norberto Salazar agree with the treatment plan recommendation as documented patient admitted hospital possible small bowel obstruction may require surgical intervention will get a cardiac echo Doppler study reviewed the study ejection fraction remains normal we will do a cardiac clearance for surgery. Evaluated patient agree with treatment plan recommendation as documented all essential complaints the consultation report is reviewed by me personally. HPI Data of Consult Requesting Physician: Kevin Pulido MD Admitting Provider: Kevin Pulido MD Attending Provider: Kevin Pulido MD Primary Care Provider: Fabian Rashid MD Consult Narrative History of present illness: Patient is Lebanese-speaking, understands conversation and able to respond with simple answers. Most of history taken from chart review. A 79-year-old male with significant past medical history of CVA with right hemiplegia, aphasia, dysphagia s/p peg tube, pulmonary embolism on Eliquis, hypertension, hyperlipidemia, GERD, recurrent pneumonia was brought to the hospital with chief complaints of shortness of breath and admitted for acute hypoxic respiratory failure and septic shock. Patient was started on treatment with antibiotics and IV fluids. Later patient was found to have altered bowel movements for which abdominal x-ray was taken and found to have SBO pattern. Initially placed an NG tube and tried Gastrografin series but patient apparently pulled out NG tube and Gastrografin series was never completed. Later Dr. Blandon was consulted for SBO and possible surgery. Cardiology is consulted for clearance for the surgery. Past medical history: CVA, PE, cocci, GERD, hypertension, hyperlipidemia Past surgical history: Not significant Social history: Denies smoking, alcohol, other illicit drug abuse Allergies: NKDA cc:: cc: Kevin Pulido MD Review of Systems Review of Systems Systems Reviewed: All systems reviewed, normal except as documented Past Medical History Past Medical History NEUROLOGIC: Positive Neurological Disorders and Cerebrovascular Accident (2x in 2023) CARDIAC: Positive Cardiac Disorders, Hypercholesterolemia and Hypertension RESPIRATORY: Positive Pneumonia and Pulmonary Embolism GASTROINTESTINAL: Positive Gastroesophageal Reflux Disease Surgical History SURGICAL: Positive Abdominal Surgery Exam Vital Signs Temp Pulse Resp BP Pulse Ox O2 Del Method O2 Flow Rate 97.5 F 72 18 132/68 H 100 Nasal Cannula 1 12/12/24 12:00 12/12/24 13:45 12/12/24 13:45 12/12/24 12:00 12/12/24 13:45 12/12/24 12:00 12/12/24 12:00 Narrative Exam General: Awake. HEENT: Normocephalic, atraumatic, mucous membranes moist. Heart: Regular rate and rhythm, no murmurs. Lungs: Clear to auscultation with no wheezing or crackles. Abdomen: Soft, mildly distended, mild to moderate tenderness, predominantly in the lower abdomen, decreased bowel sounds. ?No guarding or rebound tenderness. Neurologic: Alert and oriented x3,noted significant weakness in the right upper and lower extremities. noted facial droop and aphasia Extremities: No edema. Skin: No rash or ecchymoses. Results Labs 12/14/24 05:32 12/14/24 07:50 Labs: Short CBC 12/12/24 Range/Units 04:44 WBC 5.1 (3.8-10.6) Thou/mm3 Hgb 9.4 L (13.5-16.0) g/dL Hct 27.3 L (41.0-53.0) % Plt Count 289 (140-440) Thou/mm3 BMP 12/12/24 12/12/24 04:44 09:50 Sodium 149 H 149 H Potassium 3.1 L Chloride 114 H Carbon Dioxide 28.8 BUN 18 Creatinine 0.6 Glucose 123 H Calcium 8.3 Liver Function 12/12/24 Range/Units 04:44 Total Bilirubin 0.4 (0.3-1.2) mg/dL AST 22 (0-34) U/L ALT 12 (10-49) U/L Alkaline Phosphatase 33 L (46-116) U/L Albumin 2.5 L (3.4-4.8) gm/dL ABG Interpretation ABG results: 12/07/24 12/08/24 20:42 07:22 ABG pH 7.44 7.44 ABG pCO2 31 L 33 ABG pO2 68 L 88 D ABG HCO3 21 22 ABG O2 Saturation 95 98 ABG Base Excess -3 -1 Quality Measures Quality Measures VTE prophylaxis Advance care planning discussed with:: patient, spouse and other Medications Home Medications and Allergies Home Medications ?Medication ?Instructions ?Recorded ?Confirmed ?Type amlodipine 10 mg tablet 10 mg feeding tube QDAY 05/2412/08/24 History Held on 11/02/24. Instructions: BP stable while inpatient. Hold until follow-up with PCP, or can continue if BP elevated back at facility. apixaban 5 mg tablet (Eliquis) 5 mg feeding tube BID 0 06/17/24 12/08/24 History atorvastatin 80 mg tablet (Lipitor) 40 mg feeding tube QDAY 06/17/24 12/08/24 History docusate sodium 100 mg tablet 100 mg PO QDAY 06/17/24 12/08/24 History famotidine 20 mg tablet 20 mg feeding tube QDAY 05/2412/08/24 History fenofibrate nanocrystallized 145 145 mg PO QDAY 12/08/24 History mg tablet fluconazole 200 mg tablet 200 mg feeding tube QDAY 12/08/24 History melatonin 3 mg tablet 3 mg PO HS PRN Insomnia 05/2412/08/24 History oxcarbazepine 300 mg tablet 300 mg feeding tube BID 12/08/24 History doxazosin 1 mg tablet 1 mg PO QDAY 10/19/24 History pregabalin 20 mg/mL oral solution 20 mg PO BID 5 12/08/24 History lidocaine HCl 2 % mucosal solution 15 ml PO Q4HR PRN f donna pain from 10/31/24 12/08/24 History (Lidocaine Viscous) trigeminal neuralgia tramadol 50 mg tablet 50 mg feeding tube Q6H PRN p ain 10/31/24 12/08/24 History aspirin 81 mg tablet 81 mg PO QDAY 12/08/2412/08 History cranberry 500 mg capsule 500 mg PO QDAY 12/08/2411/20 History ipratropium 0.5 mg-albuterol 3 mg 3 ml inhalation Q6H PRN shortness 12/08/24 12/08/24 History (2.5 mg base)/3 mL nebulization of breath or wheezing soln multivit with minerals-iron 18 1 tab PO QDAY 12/08/24 12/08/24 History mg-folic ac 400 mcg-vit K 25 mcg tablet (Adults Multivitamin) Allergies Allergy/AdvReac Type Severity Reaction Status Date / Time No Known Allergies Allergy Verified 12/07/24 20:10 Visit Medications Acetaminophen (Acetaminophen Gisele 325 Mg/10 Ml Udc) 650 mg GT Q4HR PRN PRN Reason: Pain Or Fever > 100 Stop: 01/06/25 22:26 Last Admin: 12/12/24 00:45 Dose: 650 mg Acetylcysteine (Acetylcysteine Rt Gisele 10% 4 Ml Nebu) 4 ml INH Q6HRRT [facility] Stop: 01/07/25 00:59 Last Admin: 12/12/24 13:44 Dose: 4 ml Apixaban (Apixaban 2.5 Mg Tablet) 5 mg GT BID [facility] Stop: 01/09/25 09:44 Last Admin: 12/10/24 10:53 Dose: Not Given Aspirin (Aspirin 81 Mg Chew) 81 mg GT QDAY [facility] Stop: 01/07/25 08:59 Last Admin: 12/12/24 09:49 Dose: 81 mg Atorvastatin Calcium (Atorvastatin Calcium 20 Mg Tablet) 40 mg GT HS [facility] Stop: 01/07/25 20:59 Last Admin: 12/11/24 21:50 Dose: Not Given Bisacodyl (Bisacodyl 10 Mg Supp) 10 mg NM QDAY PRN; Protocol PRN Reason: CONSTIPATION Stop: 01/07/25 14:04 Doxazosin Mesylate (Doxazosin Mesylate 1 Mg Tablet) 1 mg GT QDAY [facility] Stop: 01/07/25 08:59 Last Admin: 12/12/24 09:47 Dose: 1 mg Famotidine (Famotidine 20 Mg Tablet) 20 mg GT QDAY [facility] Stop: 01/07/25 08:59 Last Admin: 12/10/24 10:52 Dose: Not Given Fenofibrate (Fenofibrate 145 Mg Tablet (Non-Formulary)) 145 mg GT QDAY [facility] Stop: 01/07/25 08:59 Last Admin: 12/12/24 09:49 Dose: 145 mg Fluconazole (Fluconazole Susp 40 Mg/Ml Ml) 200 mg GT QDAY [facility] Stop: 12/15/24 08:59 Last Admin: 12/12/24 09:47 Dose: 200 mg Doxycycline Hyclate 100 mg/ (Sodium Chloride) 100 mls @ 100 mls/hr IV BID [facility] Stop: 12/15/24 08:59 Last Admin: 12/12/24 09:47 Dose: 100 mls/hr Piperacillin/Tazobactam/Dextrose (Zosyn) 3.375 gm in 50 mls @ 12.5 mls/hr IV Q8HR RE; Protocol Stop: 12/15/24 05:59 Last Admin: 12/12/24 13:45 Dose: 12.5 mls/hr Dextrose (D5w) 1,000 mls @ 125 mls/hr IV .Q8H [facility] Stop: 12/12/24 18:00 Last Admin: 12/12/24 06:45 Dose: 125 mls/hr Potassium Phosphate (Pot Phos 15 Mmol In Ns 250 Ml) 15 mmol in 250 mls @ 62.5 mls/hr IV Q4H RE Stop: 12/12/24 15:16 Last Admin: 12/12/24 13:45 Dose: 62.5 mls/hr Levalbuterol HCl (Levalbuterol Rt 1.25 Mg/0.5 Ml Nebu) 1.25 mg INH Q6HRRT [facility] Stop: 01/07/25 00:59 Last Admin: 12/12/24 13:44 Dose: 1.25 mg Ondansetron HCl (Ondansetron Inj 2 Mg/Ml Inj 2 Ml) 4 mg IVP Q6H PRN; Protocol PRN Reason: NAUSEA OR VOMITING Stop: 01/06/25 22:11 Last Admin: 12/11/24 01:09 Dose: 4 mg Oxcarbazepine (Oxcarbazepine 150 Mg Tablet) 300 mg GT BID [facility] Stop: 01/07/25 08:59 Last Admin: 12/12/24 09:48 Dose: 300 mg Pantoprazole Sodium (Pantoprazole Inj 40 Mg Vial) 40 mg IVP QDAY [facility] Stop: 01/09/25 10:29 Last Admin: 12/12/24 09:49 Dose: 40 mg Sennosides (Sennosides Syrup 8.8 Mg/5 Ml Udc) 8.8 mg GT QDAY PRN; Protocol PRN Reason: CONSTIPATION Stop: 01/07/25 08:06 Sodium Chloride (Sodium Chloride Rt Gisele 0.9% 3 Ml Nebu) 3 ml INH PRN PRN PRN Reason: SOLN Stop: 01/06/25 22:11 Last Admin: 12/10/24 18:26 Dose: 3 ml Discontinued Medications Apixaban (Apixaban 2.5 Mg Tablet) 5 mg GT BID RE Stop: 01/07/25 08:59 Last Admin: 12/12/24 06:51 Dose: Not Given Bisacodyl (Bisacodyl 10 Mg Supp) 10 mg NM X1 ONE; Protocol Stop: 12/08/24 10:30 Last Admin: 12/08/24 11:19 Dose: Not Given Diltiazem HCl (Diltiazem Inj 5 Mg/Ml Vial 5 Ml) 20 mg IV X1 ONE Stop: 12/07/24 20:16 Last Admin: 12/07/24 20:55 Dose: 20 mg Docusate Sodium (Docusate Sod 100 Mg Capsule) 100 mg PO QDAY PRN; Protocol PRN Reason: CONSTIPATION Stop: 01/07/25 08:06 Doxazosin Mesylate (Doxazosin Mesylate 1 Mg Tablet) 1 mg PO QDAY [facility] Stop: 01/07/25 08:59 Heparin Sodium (Porcine) (Heparin Sod Inj 5000 Unit/Ml Vial) 5,000 unit SC BID RE Stop: 12/21/24 22:29 Last Admin: 12/07/24 23:07 Dose: 5,000 unit Diltiazem HCl (Diltiazem In D5w 125 Mg) 125 mg in 125 mls @ 5 mls/hr IV .Q24H RE Stop: 01/06/25 20:14 Last Admin: 12/08/24 21:08 Dose: 5 mg/hr, 5 mls/hr Cefepime HCl 2 gm/ Sodium (Chloride) 50 mls @ 100 mls/hr IV X1 ONE Stop: 12/07/24 21:25 Last Infusion: 12/07/24 22:52 Dose: Infused Vancomycin/Sodium Chloride (Vancomycin/Ns 1 Gm Ivpb) 400 mls @ 120 mls/hr IV X1 ONE Stop: 12/08/24 00:15 Last Admin: 12/07/24 22:41 Dose: Not Given Sodium Chloride (Ns) 1,000 mls @ 999 mls/hr IV .Q1H1M ONE Stop: 12/07/24 22:29 Last Infusion: 12/07/24 23:58 Dose: Infused Sodium Chloride (Ns) 1,000 mls @ 999 mls/hr IV .Q1H1M ONE Stop: 12/07/24 22:29 Last Infusion: 12/07/24 23:58 Dose: Infused Vancomycin/Sodium Chloride (Vancomycin/Ns 1 Gm Ivpb) 200 mls @ 60 mls/hr IV X1 ONE Stop: 12/08/24 00:15 Last Infusion: 12/08/24 02:01 Dose: Infused Piperacillin Sod/Tazobactam (Sod 4.5 gm/ Sodium Chloride) 100 mls @ 200 mls/hr IV Q6HR RE Stop: 12/15/24 05:59 Last Admin: 12/08/24 06:44 Dose: Not Given Piperacillin Sod/Tazobactam (Sod 3.375 gm/ Sodium Chloride) 100 mls @ 200 mls/hr IV X1 RE; Protocol Stop: 12/15/24 03:59 Piperacillin Sod/Tazobactam (Sod 4.5 gm/ Sodium Chloride) 100 mls @ 200 mls/hr IV X1 ONE Stop: 12/08/24 06:14 Last Admin: 12/08/24 05:49 Dose: 200 mls/hr Lactated Ringer's (Lactated Ringers) 1,000 mls @ 999 mls/hr IV .Q1H1M ONE Stop: 12/08/24 08:16 Last Admin: 12/08/24 07:23 Dose: 999 mls/hr Lactated Ringer's (Lactated Ringers) 1,000 mls @ 75 mls/hr IV .[id number] ONE Stop: 12/09/24 02:34 Last Admin: 12/08/24 13:28 Dose: 75 mls/hr Sodium Chloride (Ns) 1,000 mls @ 80 mls/hr IV .[id number] ONE Stop: 12/09/24 02:05 Last Admin: 12/08/24 13:43 Dose: 80 mls/hr Potassium Phosphate (Pot Phos 15 Mmol In Ns 250 Ml) 15 mmol in 250 mls @ 62.5 mls/hr IV X1 ONE Stop: 12/09/24 11:46 Last Admin: 12/09/24 08:23 Dose: 62.5 mls/hr Lactated Ringer's (Lactated Ringers) 1,000 mls @ 75 mls/hr IV .[id number] RE Stop: 12/09/24 23:44 Last Admin: 12/09/24 12:39 Dose: 75 mls/hr Potassium Phosphate 22.5 mmol/ (Sodium Chloride) 507.5 mls @ 82.778 mls/hr IV X1 ONE Stop: 12/10/24 14:04 Last Admin: 12/10/24 10:13 Dose: 82.778 mls/hr Dextrose (D5w) 1,000 mls @ 100 mls/hr IV .Q10H RE Stop: 01/09/25 08:14 Last Admin: 12/11/24 19:34 Dose: Not Given Potassium Phosphate 22.5 mmol/ (Sodium Chloride) 507.5 mls @ 82.778 mls/hr IV X1 ONE Stop: 12/11/24 14:38 Last Admin: 12/11/24 09:56 Dose: 82.778 mls/hr Levalbuterol HCl (Levalbuterol Rt 1.25 Mg/0.5 Ml Nebu) 2.5 mg INH X1 ONE Stop: 12/07/24 19:51 Last Admin: 12/07/24 20:45 Dose: 1.25 mg Lidocaine (Lidocaine 5% Hemorrhoidal Cream 30 Gm Tube) 0 gm TOP X1 ONE Stop: 12/11/24 15:30 Last Admin: 12/11/24 18:03 Dose: 1 applicatio Methylprednisolone Sodium Succinate (Methylprednisolone Sod Succ 62.5 Mg/Ml 2ml Vial) 125 mg IVP X1 ONE Stop: 12/07/24 19:51 Last Admin: 12/07/24 20:55 Dose: 125 mg Metoclopramide HCl (Metoclopramide Inj 5 Mg/Ml Vial 2 Ml) 5 mg IVP Q6HR RE; Protocol Stop: 01/07/25 13:59 Last Admin: 12/08/24 14:28 Dose: 5 mg Non-Formulary Medication (Pregabalin) 20 mg PO BID RE Stop: 01/07/25 08:59 Potassium Phos/Sodium Phos (Naph,[facility] 1 Packet (1.5 Gm)) 1 packet PO X1 ONE Stop: 12/11/24 06:53 Last Admin: 12/11/24 10:11 Dose: Not Given Sennosides (Sennosides Syrup 8.8 Mg/5 Ml Udc) 8.8 mg PO QDAY PRN; Protocol PRN Reason: CONSTIPATION Stop: 01/07/25 08:06 Sodium Chloride (Sodium Chloride Rt Gisele 0.9% 3 Ml Nebu) 3 ml INH PRN PRN PRN Reason: SOLN Stop: 01/06/25 19:49 Last Admin: 12/07/24 20:45 Dose: 3 ml Sodium Chloride (Sodium Chloride Rt 10% 15 Ml Nebu) 5 ml INH X1 ONE Stop: 12/08/24 05:08 Last Admin: 12/08/24 07:24 Dose: Not Given Assessment & Plan Plan A 79-year-old male with significant past medical history of CVA with right hemiplegia, aphasia, dysphagia s/p peg tube, pulmonary embolism on Eliquis, hypertension, hyperlipidemia, GERD, recurrent pneumonia was brought to the hospital with chief complaints of shortness of breath and admitted for acute hypoxic respiratory failure and septic shock. Patient was started on treatment with antibiotics and IV fluids. Later patient was found to have altered bowel movements for which abdominal x-ray was taken and found to have SBO pattern. Initially placed an NG tube and tried Gastrografin series but patient apparently pulled out NG tube and Gastrografin series was never completed. Later Dr. Blandon was consulted for SBO and possible surgery. Cardiology is consulted for clearance for the surgery. # Preop cardiac clearance # SBO - possible exploratory laparotomy - Brought to the hospital with chief complaints of shortness of breath and admitted for acute hypoxic respiratory failure and septic shock. - Patient was started on treatment with antibiotics and IV fluids. - Later patient was found to have altered bowel movements for which abdominal x- ray was taken and found to have SBO pattern. - Initially placed an NG tube and tried Gastrografin series but patient apparently pulled out NG tube and Gastrografin series was never completed. Later Dr. Blandon was consulted for SBO and possible surgery. - Patient did not have any previous history of CAD, PCI, CABG, pacemaker placement - At baseline, patient is bedbound and does not ambulate by himself Plan - RCRI score for preop risk is 2, 5% surgical mortality - EKG done on 12/07/2024 showed sinus tachycardia with poor R wave progression, no ST and T wave changes - Echocardiogram done on 11/2024 - Normal LV size. Mild LVH. Estimated at 65%. There is grade I diastolic dysfunction. The RV is normal in size and systolic function. Mild MAC. Trace MR. Mild aortic valve sclerosis without stenosis. Mild TR. Low cardiac risk for surgery - Can proceed with surgery with mild to moderate risk. #Severe Sepsis ? likely HAP/aspiration pneumonia #SBO #Hypernatremia #Hypokalemia and Hypophosphatemia #Anemia ? normocytic, stable #History of PE on Eliquis #CVA with PEG, aphasia, hemiplegia #Chronic comorbidities ? HTN, HLD, GERD, cocci - Rest of the medical conditions to be treated as per primary team Thank you for allowing us to involved in the care of the patient Patient plan of care was discussed with the extractive metallurgist, Dr. Deion Salazar, PGY2
[2024-12-12 14:01] LABS: Anion Gap 9 (7-16); BUN/Creatinine Ratio 27 Ratio (12-20); Blood Urea Nitrogen 16 mg/dL (9-23); Calcium 8.0 mg/dL (8.3-10.6); Carbon Dioxide 28.4 mMol/L (20.0-31.0); Chloride 112 mMol/L (98-107); Creatinine (Component) 0.6 mg/dL (0.6-1.3); Estimated Creatinine Clearance 91.6 mL/min (>60); Glucose 113 mg/dL (74-106); Osmolality,Calculated 298 (275-295); Phosphorous 2.1 mg/dL (2.4-5.1); Potassium 3.1 mMol/L (3.4-5.1); Sodium 149 mMol/L (136-145); eGFR > 60 See Note
--- NOTE | 2024-12-12 14:25 | PC.SS ---
Rounding Note: Surgery consulting. GI consulting.
--- NOTE | 2024-12-12 16:25 | PD.RESCONSUL ---
HPI Data of Consult Requesting Physician: Kevin Pulido MD Admitting Provider: Kevin Pulido MD Attending Provider: Kevin Pulido MD Primary Care Provider: Fabian Rashid MD Consult Narrative cc:: cc: Kevin Pulido MD Exam Vital Signs Temp Pulse Resp BP Pulse Ox O2 Del Method O2 Flow Rate 97.5 F 72 18 132/68 H 100 Nasal Cannula 1 12/12/24 12:00 12/12/24 13:45 12/12/24 13:45 12/12/24 12:00 12/12/24 13:45 12/12/24 12:00 12/12/24 12:00 Results Labs 12/12/24 04:44 12/12/24 12:45 Labs: Short CBC 12/12/24 Range/Units 04:44 WBC 5.1 (3.8-10.6) Thou/mm3 Hgb 9.4 L (13.5-16.0) g/dL Hct 27.3 L (41.0-53.0) % Plt Count 289 (140-440) Thou/mm3 BMP 12/12/24 12/12/24 12/12/24 04:44 09:50 12:45 Sodium 149 H 149 H 149 H Potassium 3.1 L 3.1 L Chloride 114 H 112 H Carbon Dioxide 28.8 28.4 BUN 18 16 Creatinine 0.6 0.6 Glucose 123 H 113 H Calcium 8.3 8.0 L Liver Function 12/12/24 Range/Units 04:44 Total Bilirubin 0.4 (0.3-1.2) mg/dL AST 22 (0-34) U/L ALT 12 (10-49) U/L Alkaline Phosphatase 33 L (46-116) U/L Albumin 2.5 L (3.4-4.8) gm/dL ABG Interpretation ABG results: 12/07/24 12/08/24 20:42 07:22 ABG pH 7.44 7.44 ABG pCO2 31 L 33 ABG pO2 68 L 88 D ABG HCO3 21 22 ABG O2 Saturation 95 98 ABG Base Excess -3 -1 Quality Measures Quality Measures VTE prophylaxis Medications Home Medications and Allergies Home Medications ?Medication ?Instructions ?Recorded ?Confirmed ?Type amlodipine 10 mg tablet 10 mg feeding tube QDAY 06/17/24 12/08/24 History Held on 11/02/24. Instructions: BP stable while inpatient. Hold until follow-up with PCP, or can continue if BP elevated back at facility. apixaban 5 mg tablet (Eliquis) 5 mg feeding tube BID 06/17/24 12/08/24 History atorvastatin 80 mg tablet (Lipitor) 40 mg feeding tube QDAY 06/17/24 12/08/24 History docusate sodium 100 mg tablet 100 mg PO QDAY 06/17/24 12/08/24 History famotidine 20 mg tablet 20 mg feeding tube QDAY 06/17/24 12/08/24 History fenofibrate nanocrystallized 145 145 mg PO QDAY 06/17/24 12/08/24 History mg tablet fluconazole 200 mg tablet 200 mg feeding tube QDAY 06/17/24 12/08/24 History melatonin 3 mg tablet 3 mg PO HS PRN Insomnia 06/17/24 12/08/24 History oxcarbazepine 300 mg tablet 300 mg feeding tube BID 06/17/24 12/08/24 History doxazosin 1 mg tablet 1 mg PO QDAY 10/19/24 12/08/24 History pregabalin 20 mg/mL oral solution 20 mg PO BID 10/19/24 12/08/24 History lidocaine HCl 2 % mucosal solution 15 ml PO Q4HR PRN face pain from 10/31/24 12/08/24 History (Lidocaine Viscous) trigeminal neuralgia tramadol 50 mg tablet 50 mg feeding tube Q6H PRN pain 10/31/24 12/08/24 History aspirin 81 mg tablet 81 mg PO QDAY 12/08/24 12/08/24 History cranberry 500 mg capsule 500 mg PO QDAY 12/08/24 12/08/24 History ipratropium 0.5 mg-albuterol 3 mg 3 ml inhalation Q6H PRN shortness 12/08/24 12/08/24 History (2.5 mg base)/3 mL nebulization of breath or wheezing soln multivit with minerals-iron 18 1 tab PO QDAY 12/08/24 12/08/24 History mg-folic ac 400 mcg-vit K 25 mcg tablet (Adults Multivitamin) Allergies Allergy/AdvReac Type Severity Reaction Status Date / Time No Known Allergies Allergy Verified 12/07/24 20:10 Visit Medications Acetaminophen (Acetaminophen Gisele 325 Mg/10 Ml Udc) 650 mg GT Q4HR PRN PRN Reason: Pain Or Fever > 100 Stop: 01/06/25 22:26 Last Admin: 12/12/24 00:45 Dose: 650 mg Acetylcysteine (Acetylcysteine Rt Gisele 10% 4 Ml Nebu) 4 ml INH Q6HRRT RE Stop: 01/07/25 00:59 Last Admin: 12/12/24 13:44 Dose: 4 ml Apixaban (Apixaban 2.5 Mg Tablet) 5 mg GT BID [facility] Stop: 01/09/25 09:44 Last Admin: 12/10/24 10:53 Dose: Not Given Aspirin (Aspirin 81 Mg Chew) 81 mg GT QDAY [facility] Stop: 01/07/25 08:59 Last Admin: 12/12/24 09:49 Dose: 81 mg Atorvastatin Calcium (Atorvastatin Calcium 20 Mg Tablet) 40 mg GT HS [facility] Stop: 01/07/25 20:59 Last Admin: 12/11/24 21:50 Dose: Not Given Bisacodyl (Bisacodyl 10 Mg Supp) 10 mg [place] QDAY PRN; Protocol PRN Reason: CONSTIPATION Stop: 01/07/25 14:04 Doxazosin Mesylate (Doxazosin Mesylate 1 Mg Tablet) 1 mg GT QDAY [facility] Stop: 01/07/25 08:59 Last Admin: 12/12/24 09:47 Dose: 1 mg Famotidine (Famotidine 20 Mg Tablet) 20 mg GT QDAY [facility] Stop: 01/07/25 08:59 Last Admin: 12/10/24 10:52 Dose: Not Given Fenofibrate (Fenofibrate 145 Mg Tablet (Non-Formulary)) 145 mg GT QDAY [facility] Stop: 01/07/25 08:59 Last Admin: 12/12/24 09:49 Dose: 145 mg Fluconazole (Fluconazole Susp 40 Mg/Ml Ml) 200 mg GT QDAY [facility] Stop: 12/15/24 08:59 Last Admin: 12/12/24 09:47 Dose: 200 mg Doxycycline Hyclate 100 mg/ (Sodium Chloride) 100 mls @ 100 mls/hr IV BID RE Stop: 12/15/24 08:59 Last Admin: 12/12/24 09:47 Dose: 100 mls/hr Piperacillin/Tazobactam/Dextrose (Zosyn) 3.375 gm in 50 mls @ 12.5 mls/hr IV Q8HR [facility]; Protocol Stop: 12/15/24 05:59 Last Admin: 12/12/24 13:45 Dose: 12.5 mls/hr Dextrose (D5w) 1,000 mls @ 125 mls/hr IV .Q8H [facility] Stop: 12/12/24 18:00 Last Admin: 12/12/24 06:45 Dose: 125 mls/hr Fat Emulsion Intravenous (Intralipid 20% Iv) 500 mls @ 32 mls/hr IV TUTHSA@1800 RE Stop: 01/12/25 17:59 Potassium Acetate 50 meq/Potassium Phosphate 15 mmol/Magnesium Sulfate 2 gm/Multivitamins/Minerals 10 ml/Amino Acids 2,044 mls @ 40 mls/hr IV QDAY@1800 ONE Stop: 12/14/24 21:05 Levalbuterol HCl (Levalbuterol Rt 1.25 Mg/0.5 Ml Nebu) 1.25 mg INH Q6HRRT [facility] Stop: 01/07/25 00:59 Last Admin: 12/12/24 13:44 Dose: 1.25 mg Ondansetron HCl (Ondansetron Inj 2 Mg/Ml Inj 2 Ml) 4 mg IVP Q6H PRN; Protocol PRN Reason: NAUSEA OR VOMITING Stop: 01/06/25 22:11 Last Admin: 12/11/24 01:09 Dose: 4 mg Oxcarbazepine (Oxcarbazepine 150 Mg Tablet) 300 mg GT BID [facility] Stop: 01/07/25 08:59 Last Admin: 12/12/24 09:48 Dose: 300 mg Pantoprazole Sodium (Pantoprazole Inj 40 Mg Vial) 40 mg IVP QDAY [facility] Stop: 01/09/25 10:29 Last Admin: 12/12/24 09:49 Dose: 40 mg Sennosides (Sennosides Syrup 8.8 Mg/5 Ml Udc) 8.8 mg GT QDAY PRN; Protocol PRN Reason: CONSTIPATION Stop: 01/07/25 08:06 Sodium Chloride (Sodium Chloride Rt Gisele 0.9% 3 Ml Nebu) 3 ml INH PRN PRN PRN Reason: SOLN Stop: 01/06/25 22:11 Last Admin: 12/10/24 18:26 Dose: 3 ml Discontinued Medications Apixaban (Apixaban 2.5 Mg Tablet) 5 mg GT BID RE Stop: 01/07/25 08:59 Last Admin: 12/12/24 06:51 Dose: Not Given Bisacodyl (Bisacodyl 10 Mg Supp) 10 mg [place] X1 ONE; Protocol Stop: 12/08/24 10:30 Last Admin: 12/08/24 11:19 Dose: Not Given Diltiazem HCl (Diltiazem Inj 5 Mg/Ml Vial 5 Ml) 20 mg IV X1 ONE Stop: 12/07/24 20:16 Last Admin: 12/07/24 20:55 Dose: 20 mg Docusate Sodium (Docusate Sod 100 Mg Capsule) 100 mg PO QDAY PRN; Protocol PRN Reason: CONSTIPATION Stop: 01/07/25 08:06 Doxazosin Mesylate (Doxazosin Mesylate 1 Mg Tablet) 1 mg PO QDAY RE Stop: 01/07/25 08:59 Heparin Sodium (Porcine) (Heparin Sod Inj 5000 Unit/Ml Vial) 5,000 unit SC BID RE Stop: 12/21/24 22:29 Last Admin: 12/07/24 23:07 Dose: 5,000 unit Diltiazem HCl (Diltiazem In D5w 125 Mg) 125 mg in 125 mls @ 5 mls/hr IV .Q24H RE Stop: 01/06/25 20:14 Last Admin: 12/08/24 21:08 Dose: 5 mg/hr, 5 mls/hr Cefepime HCl 2 gm/ Sodium (Chloride) 50 mls @ 100 mls/hr IV X1 ONE Stop: 12/07/24 21:25 Last Infusion: 12/07/24 22:52 Dose: Infused Vancomycin/Sodium Chloride (Vancomycin/Ns 1 Gm Ivpb) 400 mls @ 120 mls/hr IV X1 ONE Stop: 12/08/24 00:15 Last Admin: 12/07/24 22:41 Dose: Not Given Sodium Chloride (Ns) 1,000 mls @ 999 mls/hr IV .Q1H1M ONE Stop: 12/07/24 22:29 Last Infusion: 12/07/24 23:58 Dose: Infused Sodium Chloride (Ns) 1,000 mls @ 999 mls/hr IV .Q1H1M ONE Stop: 12/07/24 22:29 Last Infusion: 12/07/24 23:58 Dose: Infused Vancomycin/Sodium Chloride (Vancomycin/Ns 1 Gm Ivpb) 200 mls @ 60 mls/hr IV X1 ONE Stop: 12/08/24 00:15 Last Infusion: 12/08/24 02:01 Dose: Infused Piperacillin Sod/Tazobactam (Sod 4.5 gm/ Sodium Chloride) 100 mls @ 200 mls/hr IV Q6HR RE Stop: 12/15/24 05:59 Last Admin: 12/08/24 06:44 Dose: Not Given Piperacillin Sod/Tazobactam (Sod 3.375 gm/ Sodium Chloride) 100 mls @ 200 mls/hr IV X1 RE; Protocol Stop: 12/15/24 03:59 Piperacillin Sod/Tazobactam (Sod 4.5 gm/ Sodium Chloride) 100 mls @ 200 mls/hr IV X1 ONE Stop: 12/08/24 06:14 Last Admin: 12/08/24 05:49 Dose: 200 mls/hr Lactated Ringer's (Lactated Ringers) 1,000 mls @ 999 mls/hr IV .Q1H1M ONE Stop: 12/08/24 08:16 Last Admin: 12/08/24 07:23 Dose: 999 mls/hr Lactated Ringer's (Lactated Ringers) 1,000 mls @ 75 mls/hr IV .[id number] ONE Stop: 12/09/24 02:34 Last Admin: 12/08/24 13:28 Dose: 75 mls/hr Sodium Chloride (Ns) 1,000 mls @ 80 mls/hr IV .[id number] ONE Stop: 12/09/24 02:05 Last Admin: 12/08/24 13:43 Dose: 80 mls/hr Potassium Phosphate (Pot Phos 15 Mmol In Ns 250 Ml) 15 mmol in 250 mls @ 62.5 mls/hr IV X1 ONE Stop: 12/09/24 11:46 Last Admin: 12/09/24 08:23 Dose: 62.5 mls/hr Lactated Ringer's (Lactated Ringers) 1,000 mls @ 75 mls/hr IV .[id number] [facility] Stop: 12/09/24 23:44 Last Admin: 12/09/24 12:39 Dose: 75 mls/hr Potassium Phosphate 22.5 mmol/ (Sodium Chloride) 507.5 mls @ 82.778 mls/hr IV X1 ONE Stop: 12/10/24 14:04 Last Admin: 12/10/24 10:13 Dose: 82.778 mls/hr Dextrose (D5w) 1,000 mls @ 100 mls/hr IV .Q10H RE Stop: 01/09/25 08:14 Last Admin: 12/11/24 19:34 Dose: Not Given Potassium Phosphate 22.5 mmol/ (Sodium Chloride) 507.5 mls @ 82.778 mls/hr IV X1 ONE Stop: 12/11/24 14:38 Last Admin: 12/11/24 09:56 Dose: 82.778 mls/hr Potassium Phosphate (Pot Phos 15 Mmol In Ns 250 Ml) 15 mmol in 250 mls @ 62.5 mls/hr IV Q4H RE Stop: 12/12/24 15:16 Last Admin: 12/12/24 13:45 Dose: 62.5 mls/hr Levalbuterol HCl (Levalbuterol Rt 1.25 Mg/0.5 Ml Nebu) 2.5 mg INH X1 ONE Stop: 12/07/24 19:51 Last Admin: 12/07/24 20:45 Dose: 1.25 mg Lidocaine (Lidocaine 5% Hemorrhoidal Cream 30 Gm Tube) 0 gm TOP X1 ONE Stop: 12/11/24 15:30 Last Admin: 12/11/24 18:03 Dose: 1 applicatio Methylprednisolone Sodium Succinate (Methylprednisolone Sod Succ 62.5 Mg/Ml 2ml Vial) 125 mg IVP X1 ONE Stop: 12/07/24 19:51 Last Admin: 12/07/24 20:55 Dose: 125 mg Metoclopramide HCl (Metoclopramide Inj 5 Mg/Ml Vial 2 Ml) 5 mg IVP Q6HR [facility]; Protocol Stop: 01/07/25 13:59 Last Admin: 12/08/24 14:28 Dose: 5 mg Non-Formulary Medication (Pregabalin) 20 mg PO BID RE Stop: 01/07/25 08:59 Potassium Phos/Sodium Phos (Naph,[facility] 1 Packet (1.5 Gm)) 1 packet PO X1 ONE Stop: 12/11/24 06:53 Last Admin: 12/11/24 10:11 Dose: Not Given Sennosides (Sennosides Syrup 8.8 Mg/5 Ml Udc) 8.8 mg PO QDAY PRN; Protocol PRN Reason: CONSTIPATION Stop: 01/07/25 08:06 Sodium Chloride (Sodium Chloride Rt Gisele 0.9% 3 Ml Nebu) 3 ml INH PRN PRN PRN Reason: SOLN Stop: 01/06/25 19:49 Last Admin: 12/07/24 20:45 Dose: 3 ml Sodium Chloride (Sodium Chloride Rt 10% 15 Ml Nebu) 5 ml INH X1 ONE Stop: 12/08/24 05:08 Last Admin: 12/08/24 07:24 Dose: Not Given
--- NOTE | 2024-12-12 16:33 | PD.IMCONS ---
Documented by User: Giuliano Gutierrez MD 12/12/24 22:44 HPI Data of Consult Requesting Physician: Kevin Pulido MD Primary Care Provider: Fabian Rashid MD Consult Narrative Reason for consult: small bowel obstruction History of present illness: The patient is a poor historian; all information was obtained through chart review and communication with the Internal Medicine team. 79-year-old male with past medical history of cerebrovascular accident with residual right-sided weakness, aphasia, and dysphagia status post PEG tube placement, pulmonary embolism on Eliquis, GERD, hypertension, hyperlipidemia, and recurrent pneumonia presented via ambulance from [facility] on 12/08/2024 due to shortness of breath. Upon arrival, chest x-ray revealed bilateral perihilar pneumonia, raising concern for hospital-acquired infection. Likely related to the patient's hospitalization last month at [facility]. Patient was discharged on 11/02/2024 following treatment for acute hypoxic respiratory failure, likely secondary to pneumonia. On this admission, Patient was started on Zosyn and Doxycycline. Atrial flutter with rapid ventricular response, presumed to be secondary to systemic infection, is being managed with Diltiazem. Urinalysis indicated bacterial colonization, likely due to chronic indwelling Huynh catheter. On 12/08, a rapid response was called for hypotension, which patient responded to IV fluid resuscitation. Abdominal x-ray on 12/09 showed small bowel obstruction pattern, although the patient continued to have bowel movements. Patient removed his NG tube and nursing staff were unable to reinsert it. A small bowel follow-through with gastrografin was attempted on 12/09 but patient vomited after receiving gastrografin. A CT abdomen/pelvis obtained on 12/11 showed a high-grade SBO and significant stool burden in the rectum. Manual disimpaction was performed the same day, with removal of a fair amount of stool. Abdominanl x-rays on 12/10, 12/11, and today (12/12) continue to show evidence of small bowel obstruction. Patient has not vomited since receiving gastrografin on 12/09. Patient is afebrile and WBC counts within normal range. ED Course - Vitals: T 98.0F, HR 127, RR 27, BP 93/58, O2 sat 93% nasal cannula - Labs: WBC 14.5, Hgb 12.2, ABG showed pH 7.44, pCO2 31, PO2 68, lactic acid 6.3, D-dimer 1670, UA showed 2+ urine protein, 3+urine blood, 4+ urine bacteria - Imaging: EKG showed atrial flutter/tachycardia with rapid ventricular response; Chest x-ray showed bilateral perihilar pneumonia - Treatment: IV fluids, Vancomycin 1 G, Dilitiazem in D5W 125 mg, Maxipime 2 G, Cardizem IM 20 mg, Xopenex 2.5 mg, SoluMedrol 2.5 mg cc:: cc: Kevin Pulido MD Review of Systems Review of Systems Narrative Review of Systems: All 13 review of systems are negative except listed above in HPI. Past Medical History Past Medical History Comments PMH COMMENT: All obtained per chart review Past Medical History: Cerebrovascular Accident (2x in 2023), Hypercholesterolemia, Hypertension, Pulmonary Embolism, GERD Family History: noncontributory Surgical History: PEG tube Social History: Denies history of smoking, denies current alcohol use, denies recreational drug use, Allergies: No known drug allergies Meds Home Medications and Allergies Home Medications ?Medication ?Instructions ?Recorded ?Confirmed ?Type amlodipine 10 mg tablet 10 mg feeding tube QDAY 06/17/24 12/08/24 History Held on 11/02/24. Instructions: BP stable while inpatient. Hold until follow-up with PCP, or can continue if BP elevated back at facility. apixaban 5 mg tablet (Eliquis) 5 mg feeding tube BID 06/17/24 12/08/24 History atorvastatin 80 mg tablet (Lipitor) 40 mg feeding tube QDAY 06/17/24 12/08/24 History docusate sodium 100 mg tablet 100 mg PO QDAY 06/17/24 12/08/24 History famotidine 20 mg tablet 20 mg feeding tube QDAY 06/17/24 12/08/24 History fenofibrate nanocrystallized 145 145 mg PO QDAY 06/17/24 12/08/24 History mg tablet fluconazole 200 mg tablet 200 mg feeding tube QDAY 06/17/24 12/08/24 History melatonin 3 mg tablet 3 mg PO HS PRN Insomnia 06/17/24 12/08/24 History oxcarbazepine 300 mg tablet 300 mg feeding tube BID 06/17/24 12/08/24 History doxazosin 1 mg tablet 1 mg PO QDAY 10/19/24 12/08/24 History pregabalin 20 mg/mL oral solution 20 mg PO BID 10/19/24 12/08/24 History lidocaine HCl 2 % mucosal solution 15 ml PO Q4HR PRN face pain from 10/31/24 12/08/24 History (Lidocaine Viscous) trigeminal neuralgia tramadol 50 mg tablet 50 mg feeding tube Q6H PRN pain 10/31/24 12/08/24 History aspirin 81 mg tablet 81 mg PO QDAY 12/08/24 12/08/24 History cranberry 500 mg capsule 500 mg PO QDAY 12/08/24 12/08/24 History ipratropium 0.5 mg-albuterol 3 mg 3 ml inhalation Q6H PRN shortness 12/08/24 12/08/24 History (2.5 mg base)/3 mL nebulization of breath or wheezing soln multivit with minerals-iron 18 1 tab PO QDAY 12/08/24 12/08/24 History mg-folic ac 400 mcg-vit K 25 mcg tablet (Adults Multivitamin) Allergies Allergy/AdvReac Type Severity Reaction Status Date / Time No Known Allergies Allergy Verified 12/07/24 20:10 Exam Vital Signs Temp Pulse Resp BP Pulse Ox O2 Del Method O2 Flow Rate 97.5 F 72 18 132/68 H 100 Nasal Cannula 1 12/12/24 12:00 12/12/24 13:45 12/12/24 13:45 12/12/24 12:00 12/12/24 13:45 12/12/24 12:00 12/12/24 12:00 Narrative Exam Physical Exam General: somnolent, no acute distress HEENT: normocephalic, atraumatic Heart: regular rate and rhythm, normal S1 and S2, no murmurs Lungs: no accessory muscle use, nasal cannula in place Abdomen: soft, mild diffuse tenderness, moderate distention, no rebound or guarding, PEG tube in place draining gastric content Neurologic: alert and oriented x1, no gross neurological deficit, R sided facial droop and hemiplegia Skin: No rash, no lesions Results Labs 12/12/24 04:44 12/12/24 16:42 Labs: Short CBC 12/12/24 Range/Units 04:44 WBC 5.1 (3.8-10.6) Thou/mm3 Hgb 9.4 L (13.5-16.0) g/dL Hct 27.3 L (41.0-53.0) % Plt Count 289 (140-440) Thou/mm3 BMP 12/12/24 12/12/24 12/12/24 04:44 09:50 12:45 Sodium 149 H 149 H 149 H Potassium 3.1 L 3.1 L Chloride 114 H 112 H Carbon Dioxide 28.8 28.4 BUN 18 16 Creatinine 0.6 0.6 Glucose 123 H 113 H Calcium 8.3 8.0 L Liver Function 12/12/24 Range/Units 04:44 Total Bilirubin 0.4 (0.3-1.2) mg/dL AST 22 (0-34) U/L ALT 12 (10-49) U/L Alkaline Phosphatase 33 L (46-116) U/L Albumin 2.5 L (3.4-4.8) gm/dL ABG Interpretation ABG results: 12/07/24 12/08/24 20:42 07:22 ABG pH 7.44 7.44 ABG pCO2 31 L 33 ABG pO2 68 L 88 D ABG HCO3 21 22 ABG O2 Saturation 95 98 ABG Base Excess -3 -1 Assessment and Plan Additional Assessment & Plan Additional Plan: 79-year-old male with past medical history of cerebrovascular accident with residual right-sided weakness, aphasia, and dysphagia status post PEG tube placement, pulmonary embolism on Eliquis, GERD, hypertension, hyperlipidemia, and recurrent pneumonia admitted for septic shock likely due to hospital-acquired pneumonia/aspiration pneumonia. #Small Bowel Obstruction Abdominal X-rays and CT abdomen/pelvis showed persistent high-grade small bowel obstruction. NG tube remains unplaced. A 12 Macedonian NG tube was recommended by Dr. Gutierrez. According to nursing staff, an attempt was made; however, the patient poorly tolerated the procedure, developing coughing and oxygen desaturation during the attempt. Resistance was encountered at 45 cm. Plan - Initiate PPN due to continued NPO status and inability to tolerate NG placement - Change PEG tube drainage method to intermittent suction - Start Metoclopramide 5mg Q12HR - Continue close monitoring for signs of clinical deterioration (increased pain, tachycardia, leukocytosis) - Continue IV fluids to maintain hydration and electrolyte balance - Monitor I/Os, abdominal girth Patient plan of care was discussed with attending physician, Dr. Gutierrez. Cliff Riggs DO PGY-1 Attending attestation patient examined with internal medicine team X-rays reviewed imaging studies reviewed laboratory data reviewed Recommendations are Placement of an NGT with patient with soft restraints to intermittent suction Repeat abdominal x-ray in the morning Agree with PPN Will follow the patient closely There is a lot of stool burden on the left side of the colon Once the ileus/small bowel obstruction resolves We will give the GoLytely to clean the colon out No invasive GI workup planned at the moment Thank you for the opportunity to participate in the care of this patient Documented by User: Cliff Riggs, STUDENT RE 12/12/24 20:44 HPI Consult Narrative History of present illness: The patient is a poor historian; all information was obtained through chart review and communication with the Internal Medicine team. 79-year-old male with past medical history of cerebrovascular accident with residual right-sided weakness, aphasia, and dysphagia status post PEG tube placement, pulmonary embolism on Eliquis, GERD, hypertension, hyperlipidemia, and recurrent pneumonia presented via ambulance from [facility] on 12/08/2024 due to shortness of breath. Upon arrival, chest x-ray revealed bilateral perihilar pneumonia, raising concern for hospital-acquired pneumonia/aspiration pneumonia. Likely related to the patient's hospitalization last month at [facility]. Patient was discharged on 11/02/2024 following treatment for acute hypoxic respiratory failure, likely secondary to pneumonia. On this admission, Patient was started on Zosyn and Doxycycline. Atrial flutter with rapid ventricular response, presumed to be secondary to systemic infection, is being managed with Diltiazem. Urinalysis indicated bacterial colonization, likely due to chronic indwelling Huynh catheter. On 12/08, a rapid response was called for hypotension, which patient responded to IV fluid resuscitation. Abdominal x-ray on 12/09 showed small bowel obstruction pattern, although the patient continued to have bowel movements. Patient removed his NG tube and nursing staff were unable to reinsert it. A small bowel follow-through with gastrografin was attempted on 12/09 but patient vomited after receiving gastrografin. A CT abdomen/pelvis obtained on 12/11 showed a high-grade SBO and significant stool burden in the rectum. Manual disimpaction was performed the same day, with removal of a fair amount of stool. Abdominanl x-rays on 12/10, 12/11, and today (12/12) continue to show evidence of small bowel obstruction. Patient has not vomited since receiving gastrografin on 12/09. Patient is afebrile and WBC counts within normal range. ED Course - Vitals: T 98.0F, HR 127, RR 27, BP 93/58, O2 sat 93% nasal cannula - Labs: WBC 14.5, Hgb 12.2, ABG showed pH 7.44, pCO2 31, PO2 68, lactic acid 6.3, D-dimer 1670, UA showed 2+ urine protein, 3+urine blood, 4+ urine bacteria - Imaging: EKG showed atrial flutter/tachycardia with rapid ventricular response; Chest x-ray showed bilateral perihilar pneumonia - Treatment: IV fluids, Vancomycin 1 G, Dilitiazem in D5W 125 mg, Maxipime 2 G, Cardizem IM 20 mg, Xopenex 2.5 mg, SoluMedrol 2.5 mg Meds Home Medications and Allergies Home Medications ?Medication ?Instructions ?Recorded ?Confirmed ?Type amlodipine 10 mg tablet 10 mg feeding tube QDAY 06/17/24 12/08/24 History Held on 11/02/24. Instructions: BP stable while inpatient. Hold until follow-up with PCP, or can continue if BP elevated back at facility. apixaban 5 mg tablet (Eliquis) 5 mg feeding tube BID 06/17/24 12/08/24 History atorvastatin 80 mg tablet (Lipitor) 40 mg feeding tube QDAY 06/17/24 12/08/24 History docusate sodium 100 mg tablet 100 mg PO QDAY 06/17/24 12/08/24 History famotidine 20 mg tablet 20 mg feeding tube QDAY 06/17/24 12/08/24 History fenofibrate nanocrystallized 145 145 mg PO QDAY 06/17/24 12/08/24 History mg tablet fluconazole 200 mg tablet 200 mg feeding tube QDAY 06/17/24 12/08/24 History melatonin 3 mg tablet 3 mg PO HS PRN Insomnia 06/17/24 12/08/24 History oxcarbazepine 300 mg tablet 300 mg feeding tube BID 06/17/24 12/08/24 History doxazosin 1 mg tablet 1 mg PO QDAY 10/19/24 12/08/24 History pregabalin 20 mg/mL oral solution 20 mg PO BID 10/19/24 12/08/24 History lidocaine HCl 2 % mucosal solution 15 ml PO Q4HR PRN face pain from 10/31/24 12/08/24 History (Lidocaine Viscous) trigeminal neuralgia tramadol 50 mg tablet 50 mg feeding tube Q6H PRN pain 10/31/24 12/08/24 History aspirin 81 mg tablet 81 mg PO QDAY 12/08/24 12/08/24 History cranberry 500 mg capsule 500 mg PO QDAY 12/08/24 12/08/24 History ipratropium 0.5 mg-albuterol 3 mg 3 ml inhalation Q6H PRN shortness 12/08/24 12/08/24 History (2.5 mg base)/3 mL nebulization of breath or wheezing soln multivit with minerals-iron 18 1 tab PO QDAY 12/08/24 12/08/24 History mg-folic ac 400 mcg-vit K 25 mcg tablet (Adults Multivitamin) Allergies Allergy/AdvReac Type Severity Reaction Status Date / Time No Known Allergies Allergy Verified 12/07/24 20:10 Exam Vital Signs Temp Pulse Resp BP Pulse Ox O2 Del Method O2 Flow Rate 97.5 F 72 18 132/68 H 100 Nasal Cannula 1 12/12/24 12:00 12/12/24 13:45 12/12/24 13:45 12/12/24 12:00 12/12/24 13:45 12/12/24 12:00 12/12/24 12:00 Results Labs 12/12/24 04:44 12/12/24 16:42 Labs: Short CBC 12/12/24 Range/Units 04:44 WBC 5.1 (3.8-10.6) Thou/mm3 Hgb 9.4 L (13.5-16.0) g/dL Hct 27.3 L (41.0-53.0) % Plt Count 289 (140-440) Thou/mm3 BMP 12/12/24 12/12/24 12/12/24 04:44 09:50 12:45 Sodium 149 H 149 H 149 H Potassium 3.1 L 3.1 L Chloride 114 H 112 H Carbon Dioxide 28.8 28.4 BUN 18 16 Creatinine 0.6 0.6 Glucose 123 H 113 H Calcium 8.3 8.0 L Liver Function 12/12/24 Range/Units 04:44 Total Bilirubin 0.4 (0.3-1.2) mg/dL AST 22 (0-34) U/L ALT 12 (10-49) U/L Alkaline Phosphatase 33 L (46-116) U/L Albumin 2.5 L (3.4-4.8) gm/dL ABG Interpretation ABG results: 12/07/24 12/08/24 20:42 07:22 ABG pH 7.44 7.44 ABG pCO2 31 L 33 ABG pO2 68 L 88 D ABG HCO3 21 22 ABG O2 Saturation 95 98 ABG Base Excess -3 -1 Assessment and Plan Additional Assessment & Plan Additional Plan: 79-year-old male with past medical history of cerebrovascular accident with residual right-sided weakness, aphasia, and dysphagia status post PEG tube placement, pulmonary embolism on Eliquis, GERD, hypertension, hyperlipidemia, and recurrent pneumonia admitted for septic shock likely due to hospital-acquired pneumonia/aspiration pneumonia. #Small Bowel Obstruction Abdominal X-rays and CT abdomen/pelvis showed persistent high-grade small bowel obstruction. NG tube remains unplaced. A 12 Macedonian NG tube was recommended by Dr. Gutierrez. According to nursing staff, an attempt was made; however, the patient poorly tolerated the procedure, developing coughing and oxygen desaturation during the attempt. Resistance was encountered at 45 cm. Plan - Initiate PPN due to continued NPO status and inability to tolerate NG placement - Change PEG tube drainage method to intermittent suction - Start Metoclopramide 5mg Q12HR - Continue close monitoring for signs of clinical deterioration (increased pain, tachycardia, leukocytosis) - Continue IV fluids to maintain hydration and electrolyte balance - Monitor I/Os, abdominal girth Patient plan of care was discussed with attending physician, Dr. Gutierrez. Cliff Riggs DO PGY-1
[2024-12-12 17:12] LABS: Alanine Aminotransferase 12 U/L (10-49); Albumin, Serum 2.4 gm/dL (3.4-4.8); Albumin/Globulin Ratio 1.0 (1.2-2.2); Alkaline Phosphatase 33 U/L (46-116); Anion Gap 8 (7-16); Aspartate Amino Transferase 21 U/L (0-34); BUN/Creatinine Ratio 26 Ratio (12-20); Bilirubin,Total 0.4 mg/dL (0.3-1.2); Blood Urea Nitrogen 13 mg/dL (9-23); Calcium 7.9 mg/dL (8.3-10.6); Calcium (Corrected) 9.2 mg/dL (8.5-10.1); Carbon Dioxide 28.2 mMol/L (20.0-31.0); Cardiac Risk Estimate 2.6 RATIO (4.0-6.7); Chloride 112 mMol/L (98-107); Cholesterol 68 mg/dL (132-200); Creatinine (Component) 0.5 mg/dL (0.6-1.3); Estimated Creatinine Clearance 109.9 mL/min (>60); Globulin 2.5 gm/dL (2.3-3.5); Glucose 115 mg/dL (74-106); HDL Cholesterol 26 mg/dL (40-60); LDL Cholesterol,Calculated 18 mg/dL (0-130); Magnesium 1.7 mg/dL (1.6-2.6); Osmolality,Calculated 295 (275-295); Phosphorous 2.6 mg/dL (2.4-5.1); Potassium 3.3 mMol/L (3.4-5.1); Sodium 148 mMol/L (136-145); Total Protein 4.9 gm/dL (5.7-8.2); Triglycerides 120 mg/dL (30-150); eGFR > 60 See Note
--- NOTE | 2024-12-12 17:28 | ESPR_ITS ---
<Statement entered by Jcarlos Aguayo MD - 12/12/24 18:21> Patient seen and examined at bedside. I discussed and supervised with the pharmacy grad intern physician who took care of this patient. I personally saw and examined the patient. I agree with most of the assessment and plan. Patient to start PPN tonight. On NG tube to LIS. Surgery and GI onboard, considering possible surgery tomorrow for potential small bowel volvulus. Continuing D5W for hypernatremia until 1800, then changing to PPN. Plan of care discussed with attending Dr. Antonio. Jcarlos Aguayo MD PGY-2 Documentation for date of: 12/12/24 Subjective Subjective Interval history: Patient seen and evaluated at bedside. He remains nonverbal at baseline and somnolent but arousable. Per nursing, he has not had any new bowel movements since yesterday?s fecal disimpaction, though he did have some gas and stool output at that time. He has not vomited. I asked the nurse to retry NG tube placement this morning using a smaller 12 Fr size for better tolerance. On exam, patient appears unchanged overall, though his breathing sounds more congested with increased mucus ? he sounds ?full? and gurgly, though oxygen saturation remains stable. Exam Vital Signs Temp Pulse Resp BP Pulse Ox O2 Del Method O2 Flow Rate 97.5 F 69 18 132/68 H 100 Nasal Cannula 1 12/12/24 12:00 12/12/24 16:00 12/12/24 13:45 12/12/24 12:00 12/12/24 13:45 12/12/24 12:00 12/12/24 12:00 Narrative Exam General: Somnolent but at baseline, nonverbal, sleeping comfortably HEENT: Mucous membranes moist CV: RRR, no murmurs Pulm: CTAB no retractions; sat 98% on 1.5L O2 Abd: Soft mildly distended, nontender, PEG tube clean and intact Neuro: A&O x1, baseline right hemiplegia and facial droop Skin: Intact, no rashes or ulcers Objective Labs 12/13/24 04:40 12/13/24 09:30 Labs: Laboratory Results - last 24 hr 12/12/24 12/12/24 12/12/24 04:44 09:50 12:45 WBC 5.1 RBC 3.04 L Hgb 9.4 L Hct 27.3 L MCV 90 MCH 30.9 MCHC 34.4 RDW Std Deviation 49.3 H Plt Count 289 Neut % (Auto) 63 Lymph % (Auto) 23 [place] % (Auto) 9 Eos % (Auto) 1 Baso % (Auto) 0 Neut # (Auto) 3.2 Lymph # (Auto) 1.2 [place] # (Auto) 0.4 Eos # (Auto) 0.0 Baso # (Auto) 0.0 Immature Gran # (Auto) 0.24 H Absolute Nucleated RBC 0.00 Immature Gran % 5 H Neutrophils % (Manual) 70 Monocytes % (Manual) 9 Eosinophils % (Manual) 3 Nucleated RBC % 0 Lymphocytes (Manual) 18 L PT 13.4 H INR 1.2 APTT 33.1 Sodium 149 H 149 H 149 H Potassium 3.1 L 3.1 L Chloride 114 H 112 H Carbon Dioxide 28.8 28.4 Anion Gap 6 L 9 BUN 18 16 Creatinine 0.6 0.6 Estim Creat Clear Calc 91.6 91.6 eGFR > 60 > 60 BUN/Creatinine Ratio 30 H 27 H Glucose 123 H 113 H Calculated Osmolality 299 H 298 H Calcium 8.3 8.0 L Corrected Calcium 9.5 Phosphorus 1.5 L 2.1 L Magnesium 1.8 Total Bilirubin 0.4 AST 22 ALT 12 Alkaline Phosphatase 33 L Total Protein 5.2 L Albumin 2.5 L Globulin 2.7 Albumin/Globulin Ratio 0.9 L Triglycerides Cholesterol LDL Cholesterol, Calc HDL Cholesterol Cholesterol/HDL Ratio 12/12/24 16:42 WBC RBC Hgb Hct MCV MCH MCHC RDW Std Deviation Plt Count Neut % (Auto) Lymph % (Auto) [place] % (Auto) Eos % (Auto) Baso % (Auto) Neut # (Auto) Lymph # (Auto) [place] # (Auto) Eos # (Auto) Baso # (Auto) Immature Gran # (Auto) Absolute Nucleated RBC Immature Gran % Neutrophils % (Manual) Monocytes % (Manual) Eosinophils % (Manual) Nucleated RBC % Lymphocytes (Manual) PT INR APTT Sodium 148 H Potassium 3.3 L Chloride 112 H Carbon Dioxide 28.2 Anion Gap 8 BUN 13 Creatinine 0.5 L Estim Creat Clear Calc 109.9 eGFR > 60 BUN/Creatinine Ratio 26 H Glucose 115 H Calculated Osmolality 295 Calcium 7.9 L Corrected Calcium 9.2 Phosphorus 2.6 Magnesium 1.7 Total Bilirubin 0.4 AST 21 ALT 12 Alkaline Phosphatase 33 L Total Protein 4.9 L Albumin 2.4 L Globulin 2.5 Albumin/Globulin Ratio 1.0 L Triglycerides 120 Cholesterol 68 L LDL Cholesterol, Calc 18 HDL Cholesterol 26 L Cholesterol/HDL Ratio 2.6 L ABG Interpretation ABG results: 12/07/24 12/08/24 20:42 07:22 ABG pH 7.44 7.44 ABG pCO2 31 L 33 ABG pO2 68 L 88 D ABG HCO3 21 22 ABG O2 Saturation 95 98 ABG Base Excess -3 -1 Quality Measures Quality Measures VTE prophylaxis Advance care planning discussed with:: patient Assessment & Plan Assessment Current Active Medications: Generic Name Dose Route Start Last Admin Trade Name Freq PRN Reason Stop Dose Admin Acetaminophen 650 mg 12/07/24 22:27 12/12/24 00:45 Acetaminophen Gisele 325 Mg/10 Ml Udc GT 01/06/25 22:26 650 mg Q4HR PRN Administration Pain Or Fever > 100 Acetylcysteine 4 ml 12/08/24 01:00 12/12/24 13:44 Acetylcysteine Rt Gisele 10% 4 Ml Nebu INH 01/07/25 00:59 4 ml Q6HRRT RE Administration Apixaban 5 mg 12/10/24 09:45 12/10/24 10:53 Apixaban 2.5 Mg Tablet GT 01/09/25 09:44 Not Given BID RE Aspirin 81 mg 12/08/24 09:00 12/12/24 09:49 Aspirin 81 Mg Chew GT 01/07/25 08:59 81 mg QDAY RE Administration Atorvastatin Calcium 40 mg 12/08/24 21:00 12/11/24 21:50 Atorvastatin Calcium 20 Mg Tablet GT 01/07/25 20:59 Not Given HS RE Bisacodyl 10 mg 12/08/24 14:05 Bisacodyl 10 Mg Supp AR 01/07/25 14:04 QDAY PRN CONSTIPATION Protocol Doxazosin Mesylate 1 mg 12/08/24 09:00 12/12/24 09:47 Doxazosin Mesylate 1 Mg Tablet GT 01/07/25 08:59 1 mg QDAY RE Administration Famotidine 20 mg 12/08/24 09:00 12/10/24 10:52 Famotidine 20 Mg Tablet GT 01/07/25 08:59 Not Given QDAY RE Fenofibrate 145 mg 12/08/24 09:00 12/12/24 09:49 Fenofibrate 145 Mg Tablet (Non-Formulary) GT 01/07/25 08:59 145 mg QDAY RE Administration Fluconazole 200 mg 12/08/24 09:00 12/12/24 09:47 Fluconazole Susp 40 Mg/Ml Ml GT 12/15/24 08:59 200 mg QDAY RE Administration Doxycycline Hyclate 100 mg/ 100 mls @ 100 mls/hr 12/08/24 09:00 12/12/24 09:47 Sodium Chloride IV 12/15/24 08:59 100 mls/hr BID RE Administration Piperacillin/Tazobactam/Dextrose 3.375 gm in 50 mls @ 12.5 mls/hr 12/08/24 14:00 12/12/24 13:45 Zosyn IV 12/15/24 05:59 12.5 mls/hr Q8HR RE Administration Protocol Dextrose 1,000 mls @ 125 mls/hr 12/11/24 07:01 12/12/24 06:45 D5w IV 12/12/24 18:00 125 mls/hr .Q8H RE Administration Fat Emulsion Intravenous 500 mls @ 32 mls/hr 12/13/24 18:00 Intralipid 20% Iv IV 01/12/25 17:59 TUTHSA@1800 RE Potassium Acetate 50 meq/ 2,044 mls @ 40 mls/hr 12/12/24 18:00 Potassium Phosphate 15 mmol/ IV 12/14/24 21:05 Magnesium Sulfate 2 gm/ QDAY@1800 ONE Multivitamins/Minerals 10 ml/ Amino Acids Levalbuterol HCl 1.25 mg 12/08/24 01:00 12/12/24 13:44 Levalbuterol Rt 1.25 Mg/0.5 Ml Nebu INH 01/07/25 00:59 1.25 mg Q6HRRT RE Administration Ondansetron HCl 4 mg 12/07/24 22:12 12/11/24 01:09 Ondansetron Inj 2 Mg/Ml Inj 2 Ml IVP 01/06/25 22:11 4 mg Q6H PRN Administration NAUSEA OR VOMITING Protocol Oxcarbazepine 300 mg 12/08/24 09:00 12/12/24 09:48 Oxcarbazepine 150 Mg Tablet GT 01/07/25 08:59 300 mg BID RE Administration Pantoprazole Sodium 40 mg 12/10/24 10:30 12/12/24 09:49 Pantoprazole Inj 40 Mg Vial IVP 01/09/25 10:29 40 mg QDAY RE Administration Sennosides 8.8 mg 12/08/24 08:13 Sennosides Syrup 8.8 Mg/5 Ml Udc GT 01/07/25 08:06 QDAY PRN CONSTIPATION Protocol Sodium Chloride 3 ml 12/07/24 22:12 12/10/24 18:26 Sodium Chloride Rt Gisele 0.9% 3 Ml Nebu INH 01/06/25 22:11 3 ml PRN PRN Administration SOLN Plan 79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 #Severe Sepsis ? likely HAP/aspiration pneumonia Previously admitted for recurrent pneumonia with sepsis and hypoxia. Now stable on Zosyn and Doxy. Cultures negative (blood, sputum, MRSA). O2 sat stable at 98% on 1.5L NC. CXR shows bilateral perihilar infiltrates. Lactic acid improved (6.3 --> 5.8 --> 3.3 -> 2.4). WBC 6.0, CRP 32.0, Procalcitonin 5.48. CT abdomen shows new right lower lobe pneumonia and moderate right pleural effusion. Patient sounds increasingly congested with thick secretions. Plan: * Continue Zosyn 3.375g IV q8h (Start date 12/08-) and Doxycycline 100mg IV BID (Start date 12/08-) * Monitor for progression of pneumonia or effusion clinically * Continue acetylcysteine and levalbuterol nebulizers * Titrate O2 as needed to maintain SpO2 > 92% * Continue aspiration precautions (HOB >30?) * Continue IV fluids * Monitor for new signs of infection #SBO KUBs and CT abdomen show persistent high-grade small bowel obstruction. Patient had small to medium stool output after enema. Denies abdominal pain. NG still not in place. CT also shows large stool burden in rectum with rectal wall thickening concerning for possible proctitis. General surgery consulted and notes that if contrast reaches colon, NG may not be needed. Plan: * Retry NG tube placement with 12 Fr (requested this morning) * GI consult placed * Consider doing fecal disimpaction again * Continue enemas PRN to relieve stool burden * Monitor for signs of proctitis (fever, pain, bleeding) * Continue NPO * Monitor for vomiting, distension, output #Hypernatremia Na improved from 154 --> 149 Plan: * Increase D5W to 125 mL/hr * Repeat serum sodium q4h * Monitor for fluid overload #Hypokalemia and Hypophosphatemia K 3.1, Phos 1.5 ? repleted this morning with potassium phosphate Plan: * Monitor daily BMP and Phos * Repeat repletion as needed #Anemia ? normocytic, stable Hgb dropped from 10.9 --> 9.4 today, no overt signs of bleeding Plan: * Monitor serial CBCs * Monitor hemodynamic status * No transfusion at this time #History of PE on Eliquis Anticoagulation held due to GI issues and SBO management Plan: * Continue to Hold Eliquis * Monitor Hgb and signs of bleeding or thrombosis #CVA with PEG, aphasia, hemiplegia Chronic deficits, no acute changes Plan: * Maintain aspiration precautions * Reposition regularly * Continue to hold PO/GT meds for now #Chronic comorbidities ? HTN, HLD, GERD, cocci Stable, no acute concerns Plan: * Continue atorvastatin, Protonix IV, hold other GT meds as appropriate Health Maintenance Disposition: Med Surg Diet: NPO DVT prophylaxis: Patient on aspirin (Eliquis held) GI prophylaxis: Protonix 40 mg IV Huynh: Present Lines: PIV O2: 1.5L via NC Code Status: DNR ----- Plan discussed with attending physician Dr. Antonio and senior resident Dr. Luis Antonio MD PGY-1 Internal Medicine Attending Provider Attestation/Addendum I, Mercy Antonio DO, attest that I was physically present for the rodriguez portions of the service and evaluated the patient with the resident and I reviewed and discussed the case with the resident and agree with the resident's findings and plans of care as documented above Patient seen and eval this a.m. Patient continues to have large bowel movements. However, KUB remains unchanged with SBO pattern. GI was consulted for further recommendations. Case discussed with surgery who saw patient and also disimpacted patient. Patient does grimace to palpation of abdomen. He appears to be more alert and interactive. Will start patient on PPN as he had not eaten for several days and Tuesday. G-tube is placed to gravity as well. However, no episodes of emesis overnight. Patient remains afebrile. He continues to have scattered rhonchi in bilateral lung loja. Continue with chest PT.
[2024-12-12] MEDS: MAGNESIUM SULF IV (18:03)
[2024-12-12] MEDS: POTASSIUM ACET IV (18:03)
[2024-12-12] MEDS: POTASSIUM PHOS IV (18:03)
[2024-12-12] MEDS: [UNRECOGNIZED DRUG - OTHER] IV (18:03)
[2024-12-12] MEDS: POTASSIUM CHL 10 mEq IVPB 10 MEQ/100 ML BAG 100 MEQ IV ×2 (18:56→20:27)
[2024-12-12] MEDS: Magnesium Sulfate 4 GM Ivpb 4 GM/50 ML BAG IV (18:56)
[2024-12-12] MEDS: METOCLOPRAMIDE INJ 5 MG/ML VIAL 2 ML IVP (20:44)
[2024-12-12] MEDS: ATORVASTATIN CALCIUM 20 MG TABLET 40 MG GT (20:47)
--- NOTE | 2024-12-12 23:14 | PC.NURSE ---
RN unable to get midnight blood sugar check. Pt would clench fist when RN tried to get bedside blood glucose.
[2024-12-13] VITALS (11 sets, daily range): BP systolic 105–141; BP diastolic 57–84; PULSE 64–94; RESP 14–96; TEMP 36–36.4; O2SAT 93–100
[2024-12-13] MEDS: ACETYLCYSTEINE RT SOL 10% 4 ML NEBU INH ×4 (00:22→18:37)
[2024-12-13] MEDS: LEVALBUTEROL RT 1.25 MG/0.5 ML NEBU INH ×4 (00:22→18:37)
[2024-12-13] MEDS: PIPER/TAZO 3.375 GM PREMIX 3.375 GM/50 ML BAG IV ×3 (05:36→22:08)
[2024-12-13 05:48] LABS: INR 1.2 (0.9-1.3); Partial Thromboplastin Time 30.7 Seconds (22.0-36.0); Prothrombin Time 12.9 Seconds (9.0-12.2)
[2024-12-13 05:53] LABS: Basophils # (Auto) 0.0 Thou/mm3 (0.0-0.2); Basophils % (Auto) 0 % (0-2.5); Eosinophils # (Auto) 0.0 Thou/mm3 (0.0-0.5); Eosinophils % (Auto) 1 % (0-10); Hematocrit 28.6 % (41.0-53.0); Hemoglobin 9.6 g/dL (13.5-16.0); Immature Granulocytes Auto 0.46 Thou/mm3 (0.00-0.00); Lymphocytes # (Auto) 1.2 Thou/mm3 (1.0-4.8); Lymphocytes % (Auto) 18 % (10-50); Mean Corpuscular HGB Conc 33.6 g/dl (31.0-37.0); Mean Corpuscular Hemoglobin 31.4 pg (25.0-35.0); Mean Corpuscular Volume 94 fL (80-100); Monocytes # (Auto) 0.4 Thou/mm3 (0.0-0.8); Monocytes % (Auto) 5 % (0-12); Neutrophils # (Auto) 4.6 Thou/mm3 (1.8-7.7); Neutrophils % (Auto) 69 % (37-80); Nucleated Red Blood Cell # 0.03 Thou/mm3 (0.00-0.00); Nucleated Red Blood Cell % 0 /100 WBC (0); Platelet Count 269 Thou/mm3 (140-440); RDW Standard Deviation 50.0 fL (35.1-43.9); Red Blood Count 3.06 Miln/mm3 (4.50-5.90); White Blood Count 6.7 Thou/mm3 (3.8-10.6)
[2024-12-13 06:08] LABS: Alanine Aminotransferase 11 U/L (10-49); Albumin, Serum 2.5 gm/dL (3.4-4.8); Albumin/Globulin Ratio 1.0 (1.2-2.2); Alkaline Phosphatase 36 U/L (46-116); Anion Gap 7 (7-16); Aspartate Amino Transferase 22 U/L (0-34); BUN/Creatinine Ratio 24 Ratio (12-20); Bilirubin,Total 0.5 mg/dL (0.3-1.2); Blood Urea Nitrogen 12 mg/dL (9-23); Calcium 8.0 mg/dL (8.3-10.6); Calcium (Corrected) 9.2 mg/dL (8.5-10.1); Carbon Dioxide 27.0 mMol/L (20.0-31.0); Chloride 113 mMol/L (98-107); Creatinine (Component) 0.5 mg/dL (0.6-1.3); Estimated Creatinine Clearance 109.9 mL/min (>60); Globulin 2.5 gm/dL (2.3-3.5); Glucose 99 mg/dL (74-106); Magnesium 2.2 mg/dL (1.6-2.6); Osmolality,Calculated 292 (275-295); Phosphorous 2.2 mg/dL (2.4-5.1); Potassium 3.5 mMol/L (3.4-5.1); Sodium 147 mMol/L (136-145); Total Protein 5.0 gm/dL (5.7-8.2); Triglycerides 124 mg/dL (30-150); eGFR > 60 See Note
[2024-12-13 08:55] LABS: Band Neutrophils (Manual) 4 % (0-6); Lymphocytes (Manual) 13 % (20-44); Metamyelocytes (Manual) 1 % (0-0); Monocytes (Manual) 6 % (2-9); Neutrophils (Manual) 76 % (50-70)
[2024-12-13] MEDS: METOCLOPRAMIDE INJ 5 MG/ML VIAL 2 ML IVP ×2 (09:40→20:57)
[2024-12-13] MEDS: POTASSIUM PHOS 22.5 MMOL in SODIUM CHLORIDE 0.9% 500 ML 500 ML 82.778 MMOL IV (09:41)
[2024-12-13] MEDS: DOXYCYCLINE INJ 100 MG in SODIUM CHLORIDE 0.9% (POP) 100 ML IV (09:42)
[2024-12-13] MEDS: ACETAMINOPHEN SOL 325 MG/10 ML UDC 650 MG GT (09:42)
[2024-12-13] MEDS: FENOFIBRATE 145 MG TABLET (NON-FORMULARY) GT (09:43)
[2024-12-13] MEDS: FLUCONAZOLE SUSP 40 MG/ML ML 200 MG GT (09:43)
[2024-12-13] MEDS: ASPIRIN 81 MG CHEW GT (09:43)
[2024-12-13] MEDS: HYDROmorphone INJ 2 MG/ML VIAL 1 MG IVP (09:48)
[2024-12-13 09:53] LABS: Sodium 147 mMol/L (136-145)
--- NOTE | 2024-12-13 10:04 | XR_ITS ---
Examination: Abdomen AP single view Technique: AP portable supine abdomen, single view Exam date and time: December 13, 2024 1008 hours INDICATIONS: Abdominal pain today FINDINGS: Prominently air distended small bowel loops No free air Mild air and stool throughout the colon IMPRESSION: Small bowel obstruction pattern
[2024-12-13] MEDS: DOXAZOSIN MESYLATE 1 MG TABLET GT (10:06)
--- NOTE | 2024-12-13 10:31 | ESPR_ITS ---
<Statement entered by Jcarlos Aguayo MD - 12/13/24 15:26> Patient seen and examined at bedside. I discussed and supervised with the international bank manager physician who took care of this patient. I personally saw and examined the patient. I agree with most of the assessment and plan. NG tube placed by gen surg, set to LIS. Patient on soft restraints. Has had multiple BMs since disimpaction, abdomen remains notably tender. On PPN, monitoring hypernatremia. Plan of care discussed with attending Dr. Antonio. Jcarlos Aguayo MD PGY-2 Documentation for date of: 12/13/24 Subjective Subjective Interval history: Patient seen and evaluated at bedside. He is more alert today and intermittently verbal, able to answer simple questions ? an improvement from prior exams. He continues to have bowel movements and denies nausea or vomiting. He reports mild abdominal pain, and exam reveals mild distension with discomfort on palpation. PEG tube is on intermittent suction, though no output observed. No desaturation overnight, though lungs remain diminished and coarse. Cough has decreased. Due to signs of discomfort, patient was started on 0.5 mg IV dilaudid q4h PRN for pain. NG tube was successfully placed this afternoon by Dr. Blandon, and patient is now on soft restraints. Exam Vital Signs Temp Pulse Resp BP Pulse Ox O2 Del Method O2 Flow Rate 97.5 F 73 20 121/69 95 Room Air 2 12/13/24 08:00 12/13/24 10:06 12/13/24 08:00 12/13/24 10:06 12/13/24 08:00 12/13/24 08:00 12/13/24 00:00 Narrative Exam General: More alert than prior days, intermittently verbal, appears tired but in no acute distress HEENT: Normocephalic, atraumatic, mucous membranes moist CV: Regular rate and rhythm, normal S1/S2, no murmurs Pulm: Breath sounds diminished bilaterally, coarse, no retractions; On room air Abd: Soft, mildly distended, mild tenderness to palpation, PEG tube in place on intermittent suction, no output noted Neuro: A&O x1, baseline right hemiplegia and facial droop; semi-verbal and interactive today Skin: Warm, dry, intact, no rashes or pressure ulcers Objective Labs 12/13/24 04:40 12/13/24 09:30 Labs: Laboratory Results - last 24 hr 12/12/24 12/12/24 12/12/24 04:44 09:50 12:45 WBC RBC Hgb Hct MCV MCH MCHC RDW Std Deviation Plt Count Neut % (Auto) Lymph % (Auto) [place] % (Auto) Eos % (Auto) Baso % (Auto) Neut # (Auto) Lymph # (Auto) [place] # (Auto) Eos # (Auto) Baso # (Auto) Immature Gran # (Auto) Absolute Nucleated RBC Immature Gran % Neutrophils % (Manual) Monocytes % (Manual) Metamyelocytes % Nucleated RBC % Band Neutrophils Lymphocytes (Manual) PT 13.4 H INR 1.2 APTT 33.1 Sodium 149 H 149 H Potassium 3.1 L Chloride 112 H Carbon Dioxide 28.4 Anion Gap 9 BUN 16 Creatinine 0.6 Estim Creat Clear Calc 91.6 eGFR > 60 BUN/Creatinine Ratio 27 H Glucose 113 H Calculated Osmolality 298 H Calcium 8.0 L Corrected Calcium Phosphorus 2.1 L Magnesium Total Bilirubin AST ALT Alkaline Phosphatase Total Protein Albumin Globulin Albumin/Globulin Ratio Triglycerides Cholesterol LDL Cholesterol, Calc HDL Cholesterol Cholesterol/HDL Ratio 12/12/24 12/13/24 12/13/24 16:42 04:40 09:30 WBC 6.7 RBC 3.06 L Hgb 9.6 L Hct 28.6 L MCV 94 MCH 31.4 MCHC 33.6 RDW Std Deviation 50.0 H Plt Count 269 Neut % (Auto) 69 Lymph % (Auto) 18 [place] % (Auto) 5 Eos % (Auto) 1 Baso % (Auto) 0 Neut # (Auto) 4.6 Lymph # (Auto) 1.2 [place] # (Auto) 0.4 Eos # (Auto) 0.0 Baso # (Auto) 0.0 Immature Gran # (Auto) 0.46 H Absolute Nucleated RBC 0.03 H Immature Gran % 7 H Neutrophils % (Manual) 76 H Monocytes % (Manual) 6 Metamyelocytes % 1 H Nucleated RBC % 0 Band Neutrophils 4 Lymphocytes (Manual) 13 L PT 12.9 H INR 1.2 APTT 30.7 Sodium 148 H 147 H 147 H Potassium 3.3 L 3.5 Chloride 112 H 113 H Carbon Dioxide 28.2 27.0 Anion Gap 8 7 BUN 13 12 Creatinine 0.5 L 0.5 L Estim Creat Clear Calc 109.9 109.9 eGFR > 60 > 60 BUN/Creatinine Ratio 26 H 24 H Glucose 115 H 99 Calculated Osmolality 295 292 Calcium 7.9 L 8.0 L Corrected Calcium 9.2 9.2 Phosphorus 2.6 2.2 L Magnesium 1.7 2.2 Total Bilirubin 0.4 0.5 AST 21 22 ALT 12 11 Alkaline Phosphatase 33 L 36 L Total Protein 4.9 L 5.0 L Albumin 2.4 L 2.5 L Globulin 2.5 2.5 Albumin/Globulin Ratio 1.0 L 1.0 L Triglycerides 120 124 Cholesterol 68 L LDL Cholesterol, Calc 18 HDL Cholesterol 26 L Cholesterol/HDL Ratio 2.6 L ABG Interpretation ABG results: 12/07/24 12/08/24 20:42 07:22 ABG pH 7.44 7.44 ABG pCO2 31 L 33 ABG pO2 68 L 88 D ABG HCO3 21 22 ABG O2 Saturation 95 98 ABG Base Excess -3 -1 Quality Measures Quality Measures VTE prophylaxis Advance care planning discussed with:: patient Assessment & Plan Assessment Current Active Medications: Generic Name Dose Route Start Last Admin Trade Name Freq PRN Reason Stop Dose Admin Acetaminophen 650 mg 12/07/24 22:27 12/13/24 09:42 Acetaminophen Gisele 325 Mg/10 Ml Udc GT 01/06/25 22:26 650 mg Q4HR PRN Administration Pain Or Fever > 100 Protocol Acetylcysteine 4 ml 12/08/24 01:00 12/13/24 06:45 Acetylcysteine Rt Gisele 10% 4 Ml Nebu INH 01/07/25 00:59 4 ml Q6HRRT RE Administration Apixaban 5 mg 12/10/24 09:45 12/10/24 10:53 Apixaban 2.5 Mg Tablet GT 01/09/25 09:44 Not Given BID RE Aspirin 81 mg 12/08/24 09:00 12/13/24 09:43 Aspirin 81 Mg Chew GT 01/07/25 08:59 81 mg QDAY RE Administration Atorvastatin Calcium 40 mg 12/08/24 21:00 12/12/24 20:47 Atorvastatin Calcium 20 Mg Tablet GT 01/07/25 20:59 40 mg HS RE Administration Bisacodyl 10 mg 12/08/24 14:05 Bisacodyl 10 Mg Supp GA 01/07/25 14:04 QDAY PRN CONSTIPATION Protocol Doxazosin Mesylate 1 mg 12/08/24 09:00 12/13/24 10:06 Doxazosin Mesylate 1 Mg Tablet GT 01/07/25 08:59 1 mg QDAY RE Administration Famotidine 20 mg 12/08/24 09:00 12/10/24 10:52 Famotidine 20 Mg Tablet GT 01/07/25 08:59 Not Given QDAY RE Fenofibrate 145 mg 12/08/24 09:00 12/13/24 09:43 Fenofibrate 145 Mg Tablet (Non-Formulary) GT 01/07/25 08:59 145 mg QDAY RE Administration Fluconazole 200 mg 12/08/24 09:00 12/13/24 09:43 Fluconazole Susp 40 Mg/Ml Ml GT 12/15/24 08:59 200 mg QDAY RE Administration Hydromorphone HCl 0.5 mg 12/13/24 09:52 Hydromorphone Inj 2 Mg/Ml Vial IVP 12/18/24 09:51 Q4HR PRN PAIN 7-10 Piperacillin/Tazobactam/Dextrose 3.375 gm in 50 mls @ 12.5 mls/hr 12/08/24 14:00 12/13/24 05:36 Zosyn IV 12/15/24 05:59 12.5 mls/hr Q8HR RE Administration Protocol Fat Emulsion Intravenous 500 mls @ 32 mls/hr 12/13/24 18:00 Intralipid 20% Iv IV 01/12/25 17:59 TUTHSA@1800 RE Potassium Acetate 50 meq/ 2,044 mls @ 40 mls/hr 12/12/24 18:00 12/13/24 10:08 Potassium Phosphate 15 mmol/ IV 12/14/24 21:05 80 mls/hr Magnesium Sulfate 2 gm/ QDAY@1800 ONE Infusion Multivitamins/Minerals 10 ml/ Amino Acids Potassium Phosphate 22.5 mmol/ 507.5 mls @ 82.778 mls/hr 12/13/24 08:30 12/13/24 09:41 Sodium Chloride IV 12/13/24 14:37 82.778 mls/hr X1 ONE Administration Levalbuterol HCl 1.25 mg 12/08/24 01:00 12/13/24 06:44 Levalbuterol Rt 1.25 Mg/0.5 Ml Nebu INH 01/07/25 00:59 1.25 mg Q6HRRT RE Administration Metoclopramide HCl 5 mg 12/12/24 21:00 12/13/24 09:40 Metoclopramide Inj 5 Mg/Ml Vial 2 Ml IVP 01/11/25 20:59 5 mg Q12HR RE Administration Protocol Ondansetron HCl 4 mg 12/07/24 22:12 12/11/24 01:09 Ondansetron Inj 2 Mg/Ml Inj 2 Ml IVP 01/06/25 22:11 4 mg Q6H PRN Administration NAUSEA OR VOMITING Protocol Oxcarbazepine 300 mg 12/08/24 09:00 12/13/24 09:42 Oxcarbazepine 150 Mg Tablet GT 01/07/25 08:59 300 mg BID RE Administration Pantoprazole Sodium 40 mg 12/10/24 10:30 12/13/24 09:44 Pantoprazole Inj 40 Mg Vial IVP 01/09/25 10:29 40 mg QDAY RE Administration Sennosides 8.8 mg 12/08/24 08:13 Sennosides Syrup 8.8 Mg/5 Ml Udc GT 01/07/25 08:06 QDAY PRN CONSTIPATION Protocol Sodium Chloride 3 ml 12/07/24 22:12 12/10/24 18:26 Sodium Chloride Rt Gisele 0.9% 3 Ml Nebu INH 01/06/25 22:11 3 ml PRN PRN Administration SOLN Plan 79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 #Severe Sepsis ? likely HAP/aspiration pneumonia Previously admitted for recurrent pneumonia with sepsis and hypoxia. Now stable on Zosyn and Doxy. Cultures negative (blood, sputum, MRSA). O2 sat stable at 98% on 1.5L NC. CXR shows bilateral perihilar infiltrates. Lactic acid improved (6.3 --> 5.8 --> 3.3 -> 2.4). WBC 6.0, CRP 32.0, Procalcitonin 5.48. CT abdomen shows new right lower lobe pneumonia and moderate right pleural effusion. Patient now more alert and semi-verbal, respiratory sounds remain diminished with less cough. No desaturations overnight. Plan: * Continue Zosyn 3.375g IV q8h (Start date 12/08-) and Doxycycline 100mg IV BID (Start date 12/08-) * Monitor for progression of pneumonia or effusion clinically * Continue acetylcysteine and levalbuterol nebulizers * Titrate O2 as needed to maintain SpO2 > 92% * Continue aspiration precautions (HOB >30?) * Discontinue IV fluids since patient is on PPN * Monitor for new signs of infection #SBO KUBs and CT abdomen show persistent high-grade SBO. Patient now having daily BMs, mild distension, and mild abdominal pain. PEG is on intermittent suction with no output noted. NG tube placed today by general surgery, patient currently on soft restraints. CT also shows large stool burden in rectum with rectal wall thickening concerning for possible proctitis. Plan: * NG tube now in place, placed by general surgery today * PEG on intermittent suction * Continue NPO * Monitor for vomiting, distension, and NG/PEG output * Continue PPN * GI and general surgery following * Monitor for signs of proctitis (pain, fever, bleeding) * Enemas PRN #Hypernatremia Na now at 147 (down from peak of 154). Patient has been improving. D5W was discontinued after initiation of PPN to avoid fluid overload. Plan: * Hold D5W now that PPN started * Monitor serum Na q6h * Monitor I/Os and volume status #Hypokalemia and Hypophosphatemia K 3.5, Phos 2.2 today (improved) Plan: * Monitor daily BMP and Phos * Replete PRN #Anemia ? normocytic, stable Hgb stable at 9.6 today from 9.4 yesterday, no overt signs of bleeding Plan: * Monitor serial CBCs * Monitor hemodynamic status * No transfusion at this time #History of PE on Eliquis Anticoagulation held due to GI issues and SBO management Plan: * Continue to Hold Eliquis * Monitor Hgb and signs of bleeding or thrombosis #CVA with PEG, aphasia, hemiplegia Chronic deficits, now more alert and intermittently verbal, responsive to questions Plan: * Maintain aspiration precautions * Reposition regularly * Continue to hold PO/GT meds for now #Chronic comorbidities ? HTN, HLD, GERD, cocci Stable, no acute concerns Plan: * Continue atorvastatin, Protonix IV, hold other GT meds as appropriate Health Maintenance Disposition: Tele Diet: NPO DVT prophylaxis: Aspirin 81mg GI prophylaxis: Protonix 40mg IV Huynh: Present Lines: PIV PEG: On intermittent suction NG tube: In place O2: Room air Code Status: DNR ----- Plan discussed with attending physician Dr. Antonio and senior resident Dr. Luis Antonio MD PGY-1 Internal Medicine Attending Provider Attestation/Addendum Mercy Pablo DO, attest that I was physically present for the rodriguez portions of the service and evaluated the patient with the resident and I reviewed and discussed the case with the resident and agree with the resident's findings and plans of care as documented above Patient seen and eval this a.m. No acute events overnight. NG tube was unsuccessful as patient is been unable to tolerate placement of NG tube. KUB continues to show small bowel obstruction. Patient is much more alert and interactive today. He states that his whole body hurts. He is unable to elaborate where his pain is coming from. However, upon palpation of his abdomen, he has obvious discomfort and tenderness to palpation, worse in his periumbilical region. Abdomen is soft, nondistended. Patient had 4 bowel movements last night. Case was discussed in detail with surgeon. NG tube was placed by surgeon this afternoon. Will follow-up with output from NG tube. G tube has been on low intermittent suction with minimal output.Case was discussed with GI who also agrees with current management.
--- NOTE | 2024-12-13 12:58 | XR_ITS ---
Examination: AP chest single view Technique one AP portable semiupright chest single view Date and time: December 13, 2024 1323 hours INDICATIONS: Post orogastric tube placement FINDINGS: Orogastric tube in the stomach Reduced inspiratory effort No significant cardiac enlargement Prominent vascular congestion IMPRESSION: Orogastric tube in stomach satisfactory position
[2024-12-13] MEDS: FAT EMULSIONS 20% IV 500 ML 32 ML IV (18:04)
[2024-12-13] MEDS: [UNRECOGNIZED DRUG - OTHER] IV (18:09)
[2024-12-13] MEDS: POTASSIUM PHOS IV (18:09)
[2024-12-13] MEDS: MULTIVITAMIN IV (18:09)
[2024-12-13] MEDS: POTASSIUM ACET IV (18:09)
--- NOTE | 2024-12-13 18:59 | ESPR_ITS ---
<Statement entered by Mtai Albarran MD - 12/16/24 12:47> I personally evaluated examined the patient with PGY 2 Dr. Norberto Salazar agree with the treatment plan recommendation as documented patient's ejection fraction is normal low risk for surgery patient appears to be improving may not require surgery for now all essential components of progress report as documented is reviewed by me agree with the treatment plan recommendations patient is clearly low risk for surgery Documentation for date of: 12/13/24 Subjective Subjective Interval history: Patient is seen and examined at bedside No acute overnight event. Overall condition appears to be same and found to have bowel movements NG tube in situ, noted to have good NG tube suction output Echo on 12/12/2024 showed normal LV size. Mild LVH. Estimated at 65%. There is grade I diastolic dysfunction. The RV is normal in size and systolic function. Mild MAC. Trace MR. Mild aortic valve sclerosis without stenosis. Mild TR. Low cardiac risk for surgery Can proceed with the surgery with mild to moderate risk Exam Vital Signs Temp Pulse Resp BP Pulse Ox O2 Del Method O2 Flow Rate 97.2 F 78 20 113/73 93 L Room Air 2 12/13/24 16:00 12/13/24 18:41 12/13/24 18:41 12/13/24 16:00 12/13/24 18:41 12/13/24 16:00 12/13/24 00:00 Narrative Exam General: Awake. HEENT: Normocephalic, atraumatic, mucous membranes moist. Heart: Regular rate and rhythm, no murmurs. Lungs: Clear to auscultation with no wheezing or crackles. Abdomen: Soft, mildly distended, mild to moderate tenderness, predominantly in the lower abdomen, decreased bowel sounds. ?No guarding or rebound tenderness. Neurologic: Alert and oriented x3,noted significant weakness in the right upper and lower extremities. noted facial droop and aphasia Extremities: No edema. Skin: No rash or ecchymoses. Objective Labs 12/15/24 08:19 12/15/24 12:50 Labs: Laboratory Results - last 24 hr 12/13/24 12/13/24 04:40 09:30 WBC 6.7 RBC 3.06 L Hgb 9.6 L Hct 28.6 L MCV 94 MCH 31.4 MCHC 33.6 RDW Std Deviation 50.0 H Plt Count 269 Neut % (Auto) 69 Lymph % (Auto) 18 [place] % (Auto) 5 Eos % (Auto) 1 Baso % (Auto) 0 Neut # (Auto) 4.6 Lymph # (Auto) 1.2 [place] # (Auto) 0.4 Eos # (Auto) 0.0 Baso # (Auto) 0.0 Immature Gran # (Auto) 0.46 H Absolute Nucleated RBC 0.03 H Immature Gran % 7 H Neutrophils % (Manual) 76 H Monocytes % (Manual) 6 Metamyelocytes % 1 H Nucleated RBC % 0 Band Neutrophils 4 Lymphocytes (Manual) 13 L PT 12.9 H INR 1.2 APTT 30.7 Sodium 147 H 147 H Potassium 3.5 Chloride 113 H Carbon Dioxide 27.0 Anion Gap 7 BUN 12 Creatinine 0.5 L Estim Creat Clear Calc 109.9 eGFR > 60 BUN/Creatinine Ratio 24 H Glucose 99 Calculated Osmolality 292 Calcium 8.0 L Corrected Calcium 9.2 Phosphorus 2.2 L Magnesium 2.2 Total Bilirubin 0.5 AST 22 ALT 11 Alkaline Phosphatase 36 L Total Protein 5.0 L Albumin 2.5 L Globulin 2.5 Albumin/Globulin Ratio 1.0 L Triglycerides 124 ABG Interpretation ABG results: 12/07/24 12/08/24 20:42 07:22 ABG pH 7.44 7.44 ABG pCO2 31 L 33 ABG pO2 68 L 88 D ABG HCO3 21 22 ABG O2 Saturation 95 98 ABG Base Excess -3 -1 Quality Measures Quality Measures VTE prophylaxis Advance care planning discussed with:: patient Assessment & Plan Assessment Current Active Medications: Generic Name Dose Route Start Last Admin Trade Name Freq PRN Reason Stop Dose Admin Acetaminophen 650 mg 12/07/24 22:27 12/13/24 09:42 Acetaminophen Gisele 325 Mg/10 Ml Udc GT 01/06/25 22:26 650 mg Q4HR PRN Administration Pain Or Fever > 100 Protocol Acetylcysteine 4 ml 12/08/24 01:00 12/13/24 18:37 Acetylcysteine Rt Gisele 10% 4 Ml Nebu INH 01/07/25 00:59 4 ml Q6HRRT RE Administration Apixaban 5 mg 12/10/24 09:45 12/10/24 10:53 Apixaban 2.5 Mg Tablet GT 01/09/25 09:44 Not Given BID RE Aspirin 81 mg 12/08/24 09:00 12/13/24 09:43 Aspirin 81 Mg Chew GT 01/07/25 08:59 81 mg QDAY RE Administration Atorvastatin Calcium 40 mg 12/08/24 21:00 12/12/24 20:47 Atorvastatin Calcium 20 Mg Tablet GT 01/07/25 20:59 40 mg HS RE Administration Bisacodyl 10 mg 12/08/24 14:05 Bisacodyl 10 Mg Supp [place] 01/07/25 14:04 QDAY PRN CONSTIPATION Protocol Doxazosin Mesylate 1 mg 12/08/24 09:00 12/13/24 10:06 Doxazosin Mesylate 1 Mg Tablet GT 01/07/25 08:59 1 mg QDAY RE Administration Famotidine 20 mg 12/08/24 09:00 12/10/24 10:52 Famotidine 20 Mg Tablet GT 01/07/25 08:59 Not Given QDAY RE Fenofibrate 145 mg 12/08/24 09:00 12/13/24 09:43 Fenofibrate 145 Mg Tablet (Non-Formulary) GT 01/07/25 08:59 145 mg QDAY RE Administration Hydromorphone HCl 0.5 mg 12/13/24 09:52 Hydromorphone Inj 2 Mg/Ml Vial IVP 12/18/24 09:51 Q4HR PRN PAIN 7-10 Piperacillin/Tazobactam/Dextrose 3.375 gm in 50 mls @ 12.5 mls/hr 12/08/24 14:00 12/13/24 15:50 Zosyn IV 12/15/24 05:59 12.5 mls/hr Q8HR RE Administration Protocol Fat Emulsion Intravenous 500 mls @ 32 mls/hr 12/13/24 18:00 12/13/24 18:04 Intralipid 20% Iv IV 01/12/25 17:59 32 mls/hr TUTHSA@1800 RE Administration Potassium Acetate 30 meq/ 2,035 mls @ 80 mls/hr 12/13/24 18:00 12/13/24 18:09 Potassium Phosphate 30 mmol/ IV 12/14/24 17:59 80 mls/hr Multivitamins/Minerals 10 ml/ QDAY@1800 RE Administration Amino Acids Levalbuterol HCl 1.25 mg 12/08/24 01:00 12/13/24 18:37 Levalbuterol Rt 1.25 Mg/0.5 Ml Nebu INH 01/07/25 00:59 1.25 mg Q6HRRT RE Administration Metoclopramide HCl 5 mg 12/12/24 21:00 12/13/24 09:40 Metoclopramide Inj 5 Mg/Ml Vial 2 Ml IVP 01/11/25 20:59 5 mg Q12HR RE Administration Protocol Ondansetron HCl 4 mg 12/07/24 22:12 12/11/24 01:09 Ondansetron Inj 2 Mg/Ml Inj 2 Ml IVP 01/06/25 22:11 4 mg Q6H PRN Administration NAUSEA OR VOMITING Protocol Oxcarbazepine 300 mg 12/08/24 09:00 12/13/24 09:42 Oxcarbazepine 150 Mg Tablet GT 01/07/25 08:59 300 mg BID RE Administration Pantoprazole Sodium 40 mg 12/10/24 10:30 12/13/24 09:44 Pantoprazole Inj 40 Mg Vial IVP 01/09/25 10:29 40 mg QDAY RE Administration Sennosides 8.8 mg 12/08/24 08:13 Sennosides Syrup 8.8 Mg/5 Ml Udc GT 01/07/25 08:06 QDAY PRN CONSTIPATION Protocol Sodium Chloride 3 ml 12/07/24 22:12 12/10/24 18:26 Sodium Chloride Rt Gisele 0.9% 3 Ml Nebu INH 01/06/25 22:11 3 ml PRN PRN Administration SOLN Plan A 79-year-old male with significant past medical history of CVA with right hemiplegia, aphasia, dysphagia s/p peg tube, pulmonary embolism on Eliquis, hypertension, hyperlipidemia, GERD, recurrent pneumonia was brought to the hospital with chief complaints of shortness of breath and admitted for acute hypoxic respiratory failure and septic shock. Patient was started on treatment with antibiotics and IV fluids. Later patient was found to have altered bowel movements for which abdominal x-ray was taken and found to have SBO pattern. Initially placed an NG tube and tried Gastrografin series but patient apparently pulled out NG tube and Gastrografin series was never completed. Later Dr. Blandon was consulted for SBO and possible surgery. Cardiology is consulted for clearance for the surgery. # Preop cardiac clearance # SBO - possible exploratory laparotomy - Brought to the hospital with chief complaints of shortness of breath and admitted for acute hypoxic respiratory failure and septic shock. - Patient was started on treatment with antibiotics and IV fluids. - Later patient was found to have altered bowel movements for which abdominal x- ray was taken and found to have SBO pattern. - Initially placed an NG tube and tried Gastrografin series but patient apparently pulled out NG tube and Gastrografin series was never completed. Later Dr. Blandon was consulted for SBO and possible surgery. - Patient did not have any previous history of CAD, PCI, CABG, pacemaker placement - At baseline, patient is bedbound and does not ambulate by himself Plan - RCRI score for preop risk is 2, 5% surgical mortality - EKG done on 12/07/2024 showed sinus tachycardia with poor R wave progression, no ST and T wave changes - Echocardiogram done on 11/2024 - Normal LV size. Mild LVH. Estimated at 65%. There is grade I diastolic dysfunction. The RV is normal in size and systolic function. Mild MAC. Trace MR. Mild aortic valve sclerosis without stenosis. Mild TR. Low cardiac risk for surgery - Can proceed with surgery with mild to moderate risk. #Severe Sepsis ? likely HAP/aspiration pneumonia #SBO #Hypernatremia #Hypokalemia and Hypophosphatemia #Anemia ? normocytic, stable #History of PE on Eliquis #CVA with PEG, aphasia, hemiplegia #Chronic comorbidities ? HTN, HLD, GERD, cocci - Rest of the medical conditions to be treated as per primary team Thank you for allowing us to involved in the care of the patient Patient plan of care was discussed with the draw bench operator helper, Dr. Deion Salazar, PGY2
[2024-12-13] MEDS: ATORVASTATIN CALCIUM 20 MG TABLET 40 MG GT (20:58)
--- NOTE | 2024-12-13 22:52 | XR_ITS ---
Examination: AP chest single view Technique one AP portable semiupright chest single view Date and time: December 13, 2024 1101 hours Comparison December 13, 2024 1323 hours INDICATIONS: Post orogastric tube placement FINDINGS: Orogastric tube in the stomach Normal heart size Opacity right lobe consistent with pneumonia IMPRESSION: Orogastric tube in the stomach satisfactory position
--- NOTE | 2024-12-13 22:52 | ESPR_ITS ---
Documentation for date of: 12/13/24 Subjective Subjective Interval history: Patient evaluated NGT in place bilious drainage KUB shows small bowel obstruction pattern Exam Vital Signs Temp Pulse Resp BP Pulse Ox O2 Del Method O2 Flow Rate 97.6 F 94 16 141/84 H 96 Room Air 2 12/13/24 20:00 12/13/24 20:00 12/13/24 20:00 12/13/24 20:00 12/13/24 20:00 12/13/24 20:00 12/13/24 00:00 Objective Labs 12/13/24 04:40 12/13/24 09:30 Labs: Laboratory Results - last 24 hr 12/13/24 12/13/24 04:40 09:30 WBC 6.7 RBC 3.06 L Hgb 9.6 L Hct 28.6 L MCV 94 MCH 31.4 MCHC 33.6 RDW Std Deviation 50.0 H Plt Count 269 Neut % (Auto) 69 Lymph % (Auto) 18 [place] % (Auto) 5 Eos % (Auto) 1 Baso % (Auto) 0 Neut # (Auto) 4.6 Lymph # (Auto) 1.2 [place] # (Auto) 0.4 Eos # (Auto) 0.0 Baso # (Auto) 0.0 Immature Gran # (Auto) 0.46 H Absolute Nucleated RBC 0.03 H Immature Gran % 7 H Neutrophils % (Manual) 76 H Monocytes % (Manual) 6 Metamyelocytes % 1 H Nucleated RBC % 0 Band Neutrophils 4 Lymphocytes (Manual) 13 L PT 12.9 H INR 1.2 APTT 30.7 Sodium 147 H 147 H Potassium 3.5 Chloride 113 H Carbon Dioxide 27.0 Anion Gap 7 BUN 12 Creatinine 0.5 L Estim Creat Clear Calc 109.9 eGFR > 60 BUN/Creatinine Ratio 24 H Glucose 99 Calculated Osmolality 292 Calcium 8.0 L Corrected Calcium 9.2 Phosphorus 2.2 L Magnesium 2.2 Total Bilirubin 0.5 AST 22 ALT 11 Alkaline Phosphatase 36 L Total Protein 5.0 L Albumin 2.5 L Globulin 2.5 Albumin/Globulin Ratio 1.0 L Triglycerides 124 Impressions Impression: Small bowel obstruction versus ileus small bowel follow-through Gastrografin ABG Interpretation ABG results: 12/07/24 12/08/24 20:42 07:22 ABG pH 7.44 7.44 ABG pCO2 31 L 33 ABG pO2 68 L 88 D ABG HCO3 21 22 ABG O2 Saturation 95 98 ABG Base Excess -3 -1 Assessment & Plan A&P Narrative 79-year-old male with past medical history of cerebrovascular accident with residual right-sided weakness, aphasia, and dysphagia status post PEG tube placement, pulmonary embolism on Eliquis, GERD, hypertension, hyperlipidemia, and recurrent pneumonia admitted for septic shock likely due to hospital- acquired pneumonia/aspiration pneumonia. #Small Bowel Obstruction Abdominal X-rays and CT abdomen/pelvis showed persistent high-grade small bowel obstruction. NG tube remains unplaced. A 12 [place] NG tube was recommended by Dr. Gutierrez. According to nursing staff, an attempt was made; however, the patient poorly tolerated the procedure, developing coughing and oxygen desaturation during the attempt. Resistance was encountered at 45 cm. Plan - Initiate PPN due to continued NPO status and inability to tolerate NG placement - Change PEG tube drainage method to intermittent suction - Start Metoclopramide 5mg Q12HR - Continue close monitoring for signs of clinical deterioration (increased pain, tachycardia, leukocytosis) - Continue IV fluids to maintain hydration and electrolyte balance - Monitor I/Os, abdominal girth Patient plan of care was discussed with attending physician, Dr. Gutierrez. Cliff Riggs DO PGY-1 Attending attestation patient examined with internal medicine team X-rays reviewed imaging studies reviewed laboratory data reviewed Recommendations are Placement of an NGT with patient with soft restraints to intermittent suction Repeat abdominal x-ray in the morning Agree with PPN Will follow the patient closely There is a lot of stool burden on the left side of the colon Once the ileus/small bowel obstruction resolves We will give the GoLytely to clean the colon out No invasive GI workup planned at the moment Thank you for the opportunity to participate in the care of this patient Time Spent With Patient Time: Total time spent is greater than 50% in coordination of care (as documented) at patient's floor/unit and/or counseling patient:
[2024-12-14] VITALS (13 sets, daily range): BP systolic 128–148; BP diastolic 69–76; PULSE 66–89; RESP 16–98; TEMP 36.3–36.9; O2SAT 94–100; BMI 28.5
[2024-12-14] MEDS: ACETYLCYSTEINE RT SOL 10% 4 ML NEBU INH ×4 (01:19→18:22)
[2024-12-14] MEDS: LEVALBUTEROL RT 1.25 MG/0.5 ML NEBU INH ×4 (01:19→18:22)
[2024-12-14] MEDS: PIPER/TAZO 3.375 GM PREMIX 3.375 GM/50 ML BAG IV ×3 (05:15→23:21)
[2024-12-14 06:26] LABS: Basophils # (Auto) 0.0 Thou/mm3 (0.0-0.2); Basophils % (Auto) 0 % (0-2.5); Eosinophils # (Auto) 0.1 Thou/mm3 (0.0-0.5); Eosinophils % (Auto) 1 % (0-10); Hematocrit 27.3 % (41.0-53.0); Hemoglobin 9.6 g/dL (13.5-16.0); Immature Granulocytes Auto 0.52 Thou/mm3 (0.00-0.00); Lymphocytes # (Auto) 1.1 Thou/mm3 (1.0-4.8); Lymphocytes % (Auto) 15 % (10-50); Mean Corpuscular HGB Conc 35.2 g/dl (31.0-37.0); Mean Corpuscular Hemoglobin 32.4 pg (25.0-35.0); Mean Corpuscular Volume 92 fL (80-100); Monocytes # (Auto) 0.4 Thou/mm3 (0.0-0.8); Monocytes % (Auto) 6 % (0-12); Neutrophils # (Auto) 5.1 Thou/mm3 (1.8-7.7); Neutrophils % (Auto) 72 % (37-80); Nucleated Red Blood Cell # 0.03 Thou/mm3 (0.00-0.00); Nucleated Red Blood Cell % 0 /100 WBC (0); Platelet Count 252 Thou/mm3 (140-440); RDW Standard Deviation 49.0 fL (35.1-43.9); Red Blood Count 2.96 Miln/mm3 (4.50-5.90); White Blood Count 7.2 Thou/mm3 (3.8-10.6)
[2024-12-14 07:04] LABS: INR 1.1 (0.9-1.3); Partial Thromboplastin Time 28.5 Seconds (22.0-36.0); Prothrombin Time 12.2 Seconds (9.0-12.2)
--- NOTE | 2024-12-14 07:51 | XR_ITS ---
Examination: Abdomen AP single view Technique: AP portable supine abdomen, single view Exam date and time: December 14, 2024 1015 hours Comparison December 13, 2024 INDICATIONS: Abdominal distention today. FINDINGS: Multiple air distended small bowel loops No free air Orogastric tube in the stomach IMPRESSION: Small bowel obstruction pattern
[2024-12-14] MEDS: METOCLOPRAMIDE INJ 5 MG/ML VIAL 2 ML IVP (08:16)
[2024-12-14] MEDS: ASPIRIN 81 MG CHEW GT (08:17)
[2024-12-14] MEDS: DOXAZOSIN MESYLATE 1 MG TABLET GT (08:17)
[2024-12-14] MEDS: FENOFIBRATE 145 MG TABLET (NON-FORMULARY) GT (08:18)
--- NOTE | 2024-12-14 08:32 | PD.SURPROG ---
Documentation for date of: 12/13/24 Subjective Subjective Brief History: 79M with HTN, HLD, hx of CVA leading to R sided weakness, aphasia and dysphagia s/p PEG, PE on eliquis and recurrent pneumonia who was admitted 12/08 from [facility] for shortness of breath, being treated for recurrent pneumonia. On admission pt underwent AXR read as SBO but has been having BMs, yesterday underwent attempted small bowel series but he vomited after receiving gastrografin. Pt did have an NG in place last night but he removed it and on my exam RN was in the process of replacing it. She reported he had a large BM today and has not had any vomiting PMH: HTN, HLD, PE, GERD, CVA PSHx: PEG Meds: includes eliquis Narrative: Started on PPN, NG inserted with approx 50cc initial output, pt had multiple BMs today, remaining afebrile with normal WBC Exam Vital Signs Temp Pulse Resp BP Pulse Ox O2 Del Method O2 Flow Rate 98.5 F 85 18 137/71 H 98 Room Air 2 12/14/24 04:00 12/14/24 08:17 12/14/24 06:43 12/14/24 08:17 12/14/24 06:43 12/14/24 04:00 12/13/24 00:00 Constitutional Constitutional: no acute distress Routine Respiratory Exam Respiratory: Present rhonchi Routine Abdominal Exam Abdominal: Present soft, tenderness (pt groans with palpation on both sides of abdomen) and distended (minimal distention); Absent rebound or guarding Results Results: Laboratory Laboratory results: results reviewed Results: Imaging Abdominal x-ray: report reviewed and image reviewed Assessment & Plan Plan 79M with HTN, HLD, hx of CVA leading to R sided weakness, aphasia and dysphagia s/p PEG, PE on eliquis and recurrent pneumonia who was admitted 12/08 from [facility] for shortness of breath, being treated for recurrent pneumonia, with radiographic findings of SBO. Clinically patient does has mild distention, and it is difficult to ascertain his pain as his response to examination varies but he is remaining hemodynamically normal and having bowel movements daily. To this point he has not had an indication for surgical intervention, will continue to follow closely NG to LIS, strict I&O Continue PPN and repletion of electrolytes
--- NOTE | 2024-12-14 08:36 | ESPR_ITS ---
Documentation for date of: 12/14/24 Subjective Subjective Brief History: 79M with HTN, HLD, hx of CVA leading to R sided weakness, aphasia and dysphagia s/p PEG, PE on eliquis and recurrent pneumonia who was admitted 12/08 from [facility] for shortness of breath, being treated for recurrent pneumonia. On admission pt underwent AXR read as SBO but has been having BMs, yesterday underwent attempted small bowel series but he vomited after receiving gastrografin. Pt did have an NG in place last night but he removed it and on my exam RN was in the process of replacing it. She reported he had a large BM today and has not had any vomiting PMH: HTN, HLD, PE, GERD, CVA PSHx: PEG Meds: includes eliquis Narrative: Pt had 350cc NG output overnight, so far has had <50cc out this morning. Had a large BM and remains afebrile with normal WBC Exam Vital Signs Temp Pulse Resp BP Pulse Ox O2 Del Method O2 Flow Rate 98.5 F 85 18 137/71 H 98 Room Air 2 12/14/24 04:00 12/14/24 08:17 12/14/24 06:43 12/14/24 08:17 12/14/24 06:43 12/14/24 04:00 12/13/24 00:00 Constitutional Constitutional: no acute distress Routine Respiratory Exam Respiratory: Present rhonchi Routine Abdominal Exam Abdominal: Present soft, tenderness (groans with palpation to right and left sides of abdomen) and distended (mild distention, improved from previous exams); Absent rebound or guarding Results Results: Laboratory Laboratory results: results reviewed Assessment & Plan Plan 79M with HTN, HLD, hx of CVA leading to R sided weakness, aphasia and dysphagia s/p PEG, PE on eliquis and recurrent pneumonia who was admitted 12/08 from [facility] for shortness of breath, being treated for recurrent pneumonia, with radiographic findings of SBO. Clinically patient does have mild distention, and it is difficult to ascertain his pain as his response to examination varies but he is remaining hemodynamically normal and having bowel movements daily. To this point he has not had an indication for surgical intervention, will continue to follow closely Repeat small bowel series
[2024-12-14 08:46] LABS: Alanine Aminotransferase 10 U/L (10-49); Albumin, Serum 2.4 gm/dL (3.4-4.8); Albumin/Globulin Ratio 1.0 (1.2-2.2); Alkaline Phosphatase 39 U/L (46-116); Anion Gap 9 (7-16); Aspartate Amino Transferase 25 U/L (0-34); BUN/Creatinine Ratio 24 Ratio (12-20); Bilirubin,Total 0.3 mg/dL (0.3-1.2); Blood Urea Nitrogen 12 mg/dL (9-23); Calcium 7.9 mg/dL (8.3-10.6); Calcium (Corrected) 9.2 mg/dL (8.5-10.1); Carbon Dioxide 24.5 mMol/L (20.0-31.0); Chloride 111 mMol/L (98-107); Creatinine (Component) 0.5 mg/dL (0.6-1.3); Estimated Creatinine Clearance 121.4 mL/min (>60); Globulin 2.5 gm/dL (2.3-3.5); Glucose 138 mg/dL (74-106); Magnesium 1.8 mg/dL (1.6-2.6); Osmolality,Calculated 288 (275-295); Phosphorous 2.3 mg/dL (2.4-5.1); Potassium 3.4 mMol/L (3.4-5.1); Sodium 144 mMol/L (136-145); Total Protein 4.9 gm/dL (5.7-8.2); eGFR > 60 See Note
--- NOTE | 2024-12-14 10:26 | XR_ITS ---
Examination: Small bowel series AP abdomen supine 3 views Date and time: December 14, 2024 1110 hours INDICATIONS: Small bowel obstruction pattern on abdomen film today, abdominal distention TECHNIQUE AND FINDINGS: Patient received 120 cc Gastrografin through the orogastric tube Immediate AP supine abdomen film shows contrast in the stomach and distended small bowel loops measuring up to 5.4 cm Abdomen films at 30 minutes and 1 demonstrates significantly contrast distended small bowel loops IMPRESSION: Small bowel obstruction pattern Recommend follow-up abdomen films 2:00 PM, 4:00 PM, 6:00 PM
--- NOTE | 2024-12-14 10:40 | CHAP ---
Patient was visited by the Spiritual Care Volunteer who prayed for them. (Volunteer was in the hospital from 09:30-10:40)
[2024-12-14] MEDS: POTASSIUM PHOS 22.5 MMOL in SODIUM CHLORIDE 0.9% 500 ML 500 ML 82.778 MMOL IV (11:07)
[2024-12-14] MEDS: Magnesium Sulfate 2 GM Ivpb 2 GM/50 ML BAG IV (11:08)
--- NOTE | 2024-12-14 14:00 | XR_ITS ---
Examination: Abdomen AP single view Technique: AP portable supine abdomen, single view Exam date and time: December 14, 2024 1405 hours INDICATIONS: Abdominal distention this week, 2.5 hour delayed film post small bowel series today. FINDINGS: Prominently contrast distended small bowel loops measuring up to 5 cm in dimension IMPRESSION: Small bowel obstruction pattern, additional delayed films will be obtained
--- NOTE | 2024-12-14 14:09 | ESPR_ITS ---
<Statement entered by Piedad Berger MD - 12/18/24 08:03> I reviewed above note and agree with findings and plans. I have also personally examined the patient with medicine team and went over assessment and plan with medical team including education intern and resident physician. <Statement entered by Jcarlos Aguayo MD - 12/14/24 14:40> Patient seen and examined at bedside. I discussed and supervised with the education intern physician who took care of this patient. I personally saw and examined the patient. I agree with most of the assessment and plan. Repeat imaging continues to show SBO pattern. Patient Had NG tube to LIS, with 350 ml output overnight. Tube clamped, gastrograffin with small bowel follow through per surgery recommendations. Imaging also showed significantly lower stool burden in colon following disimpaction, with multiple bowel movements. Will place PICC line, with plans to initiate CPN given long time without tube feeds. Plan of care discussed with attending Dr. Berger. Jcarlos Aguayo MD PGY-2 Documentation for date of: 12/14/24 Subjective Subjective Interval history: Patient was seen at bedside this morning. He was sleeping and difficult to arouse, did not engage when prompted, and repeatedly returned to sleep. Per nursing, he had two bowel movements overnight. He had previously removed his NG tube despite being on restraints, but it was successfully reinserted, and 100 mL of gastric content was suctioned. No vomiting reported. No pain or complaints. Currently on room air with stable vitals. Exam Vital Signs Temp Pulse Resp BP Pulse Ox O2 Del Method O2 Flow Rate 97.8 F 77 18 134/72 H 100 Room Air 2 12/14/24 12:00 12/14/24 12:10 12/14/24 12:10 12/14/24 12:00 12/14/24 12:10 12/14/24 12:00 12/14/24 12:00 Narrative Exam Gen: Sleeping, arousable to voice but not interactive HEENT: Mucous membranes moist, normocephalic CV: RRR, no murmurs; BP 136/69, HR 79 Pulm: Breath sounds diminished bilaterally, no retractions, sat 98% RA Abd: Soft, mildly distended, NG tube in place to suction, PEG in place (no current output) Neuro: Somnolent, not responsive to verbal stimuli, A&O x0, right facial droop and hemiplegia persist Skin: Intact, no rashes or breakdown Extremities: No edema Objective Labs 12/14/24 05:32 12/14/24 07:50 Labs: Laboratory Results - last 24 hr 12/14/24 12/14/24 05:32 07:50 WBC 7.2 RBC 2.96 L Hgb 9.6 L Hct 27.3 L MCV 92 MCH 32.4 MCHC 35.2 RDW Std Deviation 49.0 H Plt Count 252 Neut % (Auto) 72 Lymph % (Auto) 15 [place] % (Auto) 6 Eos % (Auto) 1 Baso % (Auto) 0 Neut # (Auto) 5.1 Lymph # (Auto) 1.1 [place] # (Auto) 0.4 Eos # (Auto) 0.1 Baso # (Auto) 0.0 Immature Gran # (Auto) 0.52 H Absolute Nucleated RBC 0.03 H Immature Gran % 7 H Nucleated RBC % 0 PT 12.2 INR 1.1 APTT 28.5 Sodium 144 Potassium 3.4 Chloride 111 H Carbon Dioxide 24.5 Anion Gap 9 BUN 12 Creatinine 0.5 L Estim Creat Clear Calc 121.4 eGFR > 60 BUN/Creatinine Ratio 24 H Glucose 138 H Calculated Osmolality 288 Calcium 7.9 L Corrected Calcium 9.2 Phosphorus 2.3 L Magnesium 1.8 Total Bilirubin 0.3 AST 25 ALT 10 Alkaline Phosphatase 39 L Total Protein 4.9 L Albumin 2.4 L Globulin 2.5 Albumin/Globulin Ratio 1.0 L ABG Interpretation ABG results: 12/07/24 12/08/24 20:42 07:22 ABG pH 7.44 7.44 ABG pCO2 31 L 33 ABG pO2 68 L 88 D ABG HCO3 21 22 ABG O2 Saturation 95 98 ABG Base Excess -3 -1 Quality Measures Quality Measures VTE prophylaxis Advance care planning discussed with:: patient Assessment & Plan Assessment Current Active Medications: Generic Name Dose Route Start Last Admin Trade Name Freq PRN Reason Stop Dose Admin Acetaminophen 650 mg 12/07/24 22:27 12/13/24 09:42 Acetaminophen Gisele 325 Mg/10 Ml Udc GT 01/06/25 22:26 650 mg Q4HR PRN Administration Pain Or Fever > 100 Protocol Acetylcysteine 4 ml 12/08/24 01:00 12/14/24 12:08 Acetylcysteine Rt Gisele 10% 4 Ml Nebu INH 01/07/25 00:59 4 ml Q6HRRT RE Administration Apixaban 5 mg 12/10/24 09:45 12/10/24 10:53 Apixaban 2.5 Mg Tablet GT 01/09/25 09:44 Not Given BID RE Aspirin 81 mg 12/08/24 09:00 12/14/24 08:17 Aspirin 81 Mg Chew GT 01/07/25 08:59 81 mg QDAY RE Administration Atorvastatin Calcium 40 mg 12/08/24 21:00 12/13/24 20:58 Atorvastatin Calcium 20 Mg Tablet GT 01/07/25 20:59 40 mg HS RE Administration Bisacodyl 10 mg 12/08/24 14:05 Bisacodyl 10 Mg Supp [place] 01/07/25 14:04 QDAY PRN CONSTIPATION Protocol Doxazosin Mesylate 1 mg 12/08/24 09:00 12/14/24 08:17 Doxazosin Mesylate 1 Mg Tablet GT 01/07/25 08:59 1 mg QDAY RE Administration Famotidine 20 mg 12/08/24 09:00 12/10/24 10:52 Famotidine 20 Mg Tablet GT 01/07/25 08:59 Not Given QDAY RE Fenofibrate 145 mg 12/08/24 09:00 12/14/24 08:18 Fenofibrate 145 Mg Tablet (Non-Formulary) GT 01/07/25 08:59 145 mg QDAY RE Administration Hydromorphone HCl 0.5 mg 12/13/24 09:52 Hydromorphone Inj 2 Mg/Ml Vial IVP 12/18/24 09:51 Q4HR PRN PAIN 7-10 Piperacillin/Tazobactam/Dextrose 3.375 gm in 50 mls @ 12.5 mls/hr 12/08/24 14:00 12/14/24 05:15 Zosyn IV 12/15/24 05:59 12.5 mls/hr Q8HR RE Administration Protocol Fat Emulsion Intravenous 500 mls @ 32 mls/hr 12/13/24 18:00 12/13/24 18:04 Intralipid 20% Iv IV 01/12/25 17:59 32 mls/hr TUTHSA@1800 RE Administration Potassium Acetate 30 meq/ 2,035 mls @ 80 mls/hr 12/13/24 18:00 12/13/24 18:09 Potassium Phosphate 30 mmol/ IV 12/14/24 17:59 80 mls/hr Multivitamins/Minerals 10 ml/ QDAY@1800 RE Administration Amino Acids Potassium Phosphate 22.5 mmol/ 507.5 mls @ 82.778 mls/hr 12/14/24 10:28 12/14/24 11:07 Sodium Chloride IV 12/14/24 16:35 82.778 mls/hr X1 ONE Administration Levalbuterol HCl 1.25 mg 12/08/24 01:00 12/14/24 12:08 Levalbuterol Rt 1.25 Mg/0.5 Ml Nebu INH 01/07/25 00:59 1.25 mg Q6HRRT RE Administration Metoclopramide HCl 5 mg 12/12/24 21:00 12/14/24 08:16 Metoclopramide Inj 5 Mg/Ml Vial 2 Ml IVP 01/11/25 20:59 5 mg Q12HR RE Administration Protocol Ondansetron HCl 4 mg 12/07/24 22:12 12/11/24 01:09 Ondansetron Inj 2 Mg/Ml Inj 2 Ml IVP 01/06/25 22:11 4 mg Q6H PRN Administration NAUSEA OR VOMITING Protocol Oxcarbazepine 300 mg 12/08/24 09:00 12/14/24 08:18 Oxcarbazepine 150 Mg Tablet GT 01/07/25 08:59 300 mg BID RE Administration Pantoprazole Sodium 40 mg 12/10/24 10:30 12/14/24 08:17 Pantoprazole Inj 40 Mg Vial IVP 01/09/25 10:29 40 mg QDAY RE Administration Sennosides 8.8 mg 12/08/24 08:13 Sennosides Syrup 8.8 Mg/5 Ml Udc GT 01/07/25 08:06 QDAY PRN CONSTIPATION Protocol Sodium Chloride 3 ml 12/07/24 22:12 12/10/24 18:26 Sodium Chloride Rt Gisele 0.9% 3 Ml Nebu INH 01/06/25 22:11 3 ml PRN PRN Administration SOLN Plan 79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 #Small Bowel Obstruction (SBO) High-grade SBO on CT with rectal stool burden and features concerning for proctitis. Multiple BMs past 2 days. NG tube was removed by patient but successfully replaced on 12/13. Suction output was 350 mL overnight and about 100 mL this morning. General surgery recommends repeating Gastrografin study today to reassess transit. PPN is being transitioned to CPN via PICC as nutritional needs are not being met. Plan: * Clamp NG to suction * Repeat Gastrografin study today per surgery * Continue NPO * Place PICC line for CPN * Monitor for signs of perforation or worsening obstruction * Continue GI and general surgery follow-up * Serial abdominal exams #Sepsis ? likely HAP/aspiration pneumonia Previously admitted for recurrent pneumonia with sepsis and hypoxia. Now stable on Zosyn and Doxy. Cultures negative (blood, sputum, MRSA). O2 sat stable at 98% on 1.5L NC. CXR shows bilateral perihilar infiltrates. Lactic acid improved (6.3 --> 5.8 --> 3.3 -> 2.4). WBC 6.0, CRP 32.0, Procalcitonin 5.48. CT abdomen shows new right lower lobe pneumonia and moderate right pleural effusion. Patient now more alert and semi-verbal, respiratory sounds remain diminished with less cough. No desaturations overnight. Thick secretions improving with suctioning. Plan: * Continue Zosyn 3.375g IV q8h (Start date 12/08-) and Doxycycline 100mg IV BID (Start date 12/08-) * Monitor for progression of pneumonia or effusion clinically * Continue acetylcysteine and levalbuterol nebulizers * Titrate O2 as needed to maintain SpO2 > 92% * Continue aspiration precautions (HOB >30?) * Discontinue IV fluids since patient is on PPN * Monitor for new signs of infection #Hypernatremia Na now at 144 (down from peak of 154). Patient has been improving. D5W was discontinued after initiation of PPN to avoid fluid overload. Plan: * Monitor a.m. CMP * Monitor I/Os and volume status #Hypokalemia and Hypophosphatemia and hypomagnesemia K 3.4, Phos 2.3, mag 1.8--> today (improved) Plan: * Monitor daily BMP and Phos * Replete PRN #Anemia ? normocytic, stable Hgb stable at 9.6, no overt signs of bleeding Plan: * Monitor serial CBCs * Monitor hemodynamic status * No transfusion at this time #History of PE on Eliquis Anticoagulation held due to GI issues and SBO management Plan: * Continue to Hold Eliquis * Monitor Hgb and signs of bleeding or thrombosis * On SCD's #CVA with PEG, aphasia, hemiplegia Chronic deficits, now more alert and intermittently verbal, responsive to questions Plan: * Maintain aspiration precautions * Reposition regularly * Continue to hold PO/GT meds for now #Chronic comorbidities ? HTN, HLD, GERD, cocci Stable, no acute concerns Plan: * Continue atorvastatin, Protonix IV, hold other GT meds as appropriate Health Maintenance Disposition: Tele Diet: NPO DVT prophylaxis: Aspirin 81mg GI prophylaxis: Protonix 40mg IV [place]: Present Lines: PIV PEG: On intermittent suction NG tube: In place O2: Room air Code Status: DNR ----- Plan discussed with attending physician Dr. Berger and senior resident Dr. Luis Antonio MD PGY-1 Internal Medicine
--- NOTE | 2024-12-14 14:36 | PC.SS ---
Rounding note: Patient is pending SBO. Patient comes from [facility].
--- NOTE | 2024-12-14 16:00 | XR_ITS ---
Examination: Abdomen AP single view Technique: AP portable supine abdomen, single view Exam date and time: December 14, 2024 1554 hours INDICATIONS: Abdominal pain and distention this week, 4.5 hour delayed film post small bowel series today. FINDINGS: Contrast throughout distended small bowel loops IMPRESSION: Small bowel obstruction pattern Recommend follow-up abdomen films 6:00 PM 8:00 PM 10:00 PM
[2024-12-14] MEDS: MULTIVITAMIN IV (17:46)
[2024-12-14] MEDS: [UNRECOGNIZED DRUG - OTHER] IV (17:46)
[2024-12-14] MEDS: POTASSIUM PHOS IV (17:46)
[2024-12-14] MEDS: POTASSIUM ACET IV (17:46)
--- NOTE | 2024-12-14 18:00 | XR_ITS ---
Examination: Abdomen AP single view Technique: AP portable supine abdomen, single view Exam date and time: December 14, 2024, 1801 hours INDICATIONS: Abdominal pain and distention this week, 6.5 are delayed film for small bowel series FINDINGS: Contrast in distended small bowel loops IMPRESSION: Significant small bowel obstruction pattern, follow-up films will be obtained
--- NOTE | 2024-12-14 18:27 | ESPR_ITS ---
Documentation for date of: 12/14/24 Subjective Subjective Interval history: Patient evaluated NGT was pulled out by the patient Gastrografin small bowel follow-through could not be done as patient vomited Patient having bowel movements Abdominal distention is less Exam Vital Signs Temp Pulse Resp BP Pulse Ox O2 Del Method O2 Flow Rate 97.5 F 78 18 128/76 97 Room Air 2 12/14/24 16:00 12/14/24 16:00 12/14/24 16:00 12/14/24 16:00 12/14/24 16:00 12/14/24 16:00 12/14/24 12:00 Objective Labs 12/14/24 05:32 12/14/24 07:50 Labs: Laboratory Results - last 24 hr 12/14/24 12/14/24 05:32 07:50 WBC 7.2 RBC 2.96 L Hgb 9.6 L Hct 27.3 L MCV 92 MCH 32.4 MCHC 35.2 RDW Std Deviation 49.0 H Plt Count 252 Neut % (Auto) 72 Lymph % (Auto) 15 [place] % (Auto) 6 Eos % (Auto) 1 Baso % (Auto) 0 Neut # (Auto) 5.1 Lymph # (Auto) 1.1 [place] # (Auto) 0.4 Eos # (Auto) 0.1 Baso # (Auto) 0.0 Immature Gran # (Auto) 0.52 H Absolute Nucleated RBC 0.03 H Immature Gran % 7 H Nucleated RBC % 0 PT 12.2 INR 1.1 APTT 28.5 Sodium 144 Potassium 3.4 Chloride 111 H Carbon Dioxide 24.5 Anion Gap 9 BUN 12 Creatinine 0.5 L Estim Creat Clear Calc 121.4 eGFR > 60 BUN/Creatinine Ratio 24 H Glucose 138 H Calculated Osmolality 288 Calcium 7.9 L Corrected Calcium 9.2 Phosphorus 2.3 L Magnesium 1.8 Total Bilirubin 0.3 AST 25 ALT 10 Alkaline Phosphatase 39 L Total Protein 4.9 L Albumin 2.4 L Globulin 2.5 Albumin/Globulin Ratio 1.0 L Impressions Impression: # Small bowel obstruction resolving Continue current management Very difficult management problem as patient is very uncooperative and has altered mental status ABG Interpretation ABG results: 12/07/24 12/08/24 20:42 07:22 ABG pH 7.44 7.44 ABG pCO2 31 L 33 ABG pO2 68 L 88 D ABG HCO3 21 22 ABG O2 Saturation 95 98 ABG Base Excess -3 -1 Assessment & Plan A&P Narrative 79-year-old male with past medical history of cerebrovascular accident with residual right-sided weakness, aphasia, and dysphagia status post PEG tube placement, pulmonary embolism on Eliquis, GERD, hypertension, hyperlipidemia, and recurrent pneumonia admitted for septic shock likely due to hospital- acquired pneumonia/aspiration pneumonia. #Small Bowel Obstruction Abdominal X-rays and CT abdomen/pelvis showed persistent high-grade small bowel obstruction. NG tube remains unplaced. A 12 [place] NG tube was recommended by Dr. Gutierrez. According to nursing staff, an attempt was made; however, the patient poorly tolerated the procedure, developing coughing and oxygen desaturation during the attempt. Resistance was encountered at 45 cm. Plan - Initiate PPN due to continued NPO status and inability to tolerate NG placement - Change PEG tube drainage method to intermittent suction - Start Metoclopramide 5mg Q12HR - Continue close monitoring for signs of clinical deterioration (increased pain, tachycardia, leukocytosis) - Continue IV fluids to maintain hydration and electrolyte balance - Monitor I/Os, abdominal girth Patient plan of care was discussed with attending physician, Dr. Gutierrez. Cliff Riggs DO PGY-1 Attending attestation patient examined with internal medicine team X-rays reviewed imaging studies reviewed laboratory data reviewed Recommendations are Placement of an NGT with patient with soft restraints to intermittent suction Repeat abdominal x-ray in the morning Agree with PPN Will follow the patient closely There is a lot of stool burden on the left side of the colon Once the ileus/small bowel obstruction resolves We will give the GoLytely to clean the colon out No invasive GI workup planned at the moment Thank you for the opportunity to participate in the care of this patient Time Spent With Patient Time: Total time spent is greater than 50% in coordination of care (as documented) at patient's floor/unit and/or counseling patient:
--- NOTE | 2024-12-14 20:30 | XR_ITS ---
Examination: Abdomen AP single view Technique: AP portable supine abdomen, single view Exam date and time: December 14, 20242021 hours INDICATIONS: Abdominal pain and distention, 9 hour delayed film for small bowel series FINDINGS: 9 hour delayed film for small bowel series demonstrates contrast in distended small bowel loops, however contrast is noted in the colon IMPRESSION: Negative for complete small bowel obstruction Recommend one additional film at 11:00 PM
--- NOTE | 2024-12-14 21:36 | ESPR_ITS ---
<Statement entered by Mati Albarran MD - 12/16/24 12:48> I personally examined the patient reviewed the findings patient appears to be clinically improving appears to be not a candidate for surgery no need for surgical indication at this time but patient is clinically stable cardiac echeverria no cardiac arrhythmias or heart failure low risk for surgery in case patient's condition changes. Will sign off the case unless patient with cardiac issues. Evaluated patient with resident physician PGY 2 agree with treatment plan recommendation as documented Documentation for date of: 12/14/24 Subjective Subjective Interval history: Patient is seen and examined at bedside No acute overnight events. NG tube in situ and patient was started on small bowel series Per chart review, Dr. Irving is not proceeding with surgery and doing conservative management as of now Echo on 12/12/2024 showed normal LV size. Mild LVH. Estimated at 65%. There is grade I diastolic dysfunction. The RV is normal in size and systolic function. Mild MAC. Trace MR. Mild aortic valve sclerosis without stenosis. Mild TR. Low cardiac risk for surgery If proceeding with the surgery, Can proceed with the surgery with mild to moderate risk. Will be signing off on the patient's care as there is no further cardiology intervention on the patient Exam Vital Signs Temp Pulse Resp BP Pulse Ox O2 Del Method O2 Flow Rate 97.8 F 81 20 128/72 96 Room Air 2 12/14/24 19:49 12/14/24 19:49 12/14/24 19:49 12/14/24 19:49 12/14/24 19:49 12/14/24 19:49 12/14/24 12:00 Narrative Exam General: Awake. HEENT: Normocephalic, atraumatic, mucous membranes moist. Heart: Regular rate and rhythm, no murmurs. Lungs: Clear to auscultation with no wheezing or crackles. Abdomen: Soft, mildly distended, mild to moderate tenderness, predominantly in the lower abdomen, decreased bowel sounds. ?No guarding or rebound tenderness. Neurologic: Alert and oriented x3,noted significant weakness in the right upper and lower extremities. noted facial droop and aphasia Extremities: No edema. Skin: No rash or ecchymoses. Objective Labs 12/15/24 08:19 12/15/24 12:50 Labs: Laboratory Results - last 24 hr 12/14/24 12/14/24 05:32 07:50 WBC 7.2 RBC 2.96 L Hgb 9.6 L Hct 27.3 L MCV 92 MCH 32.4 MCHC 35.2 RDW Std Deviation 49.0 H Plt Count 252 Neut % (Auto) 72 Lymph % (Auto) 15 [place] % (Auto) 6 Eos % (Auto) 1 Baso % (Auto) 0 Neut # (Auto) 5.1 Lymph # (Auto) 1.1 [place] # (Auto) 0.4 Eos # (Auto) 0.1 Baso # (Auto) 0.0 Immature Gran # (Auto) 0.52 H Absolute Nucleated RBC 0.03 H Immature Gran % 7 H Nucleated RBC % 0 PT 12.2 INR 1.1 APTT 28.5 Sodium 144 Potassium 3.4 Chloride 111 H Carbon Dioxide 24.5 Anion Gap 9 BUN 12 Creatinine 0.5 L Estim Creat Clear Calc 121.4 eGFR > 60 BUN/Creatinine Ratio 24 H Glucose 138 H Calculated Osmolality 288 Calcium 7.9 L Corrected Calcium 9.2 Phosphorus 2.3 L Magnesium 1.8 Total Bilirubin 0.3 AST 25 ALT 10 Alkaline Phosphatase 39 L Total Protein 4.9 L Albumin 2.4 L Globulin 2.5 Albumin/Globulin Ratio 1.0 L ABG Interpretation ABG results: 12/07/24 12/08/24 20:42 07:22 ABG pH 7.44 7.44 ABG pCO2 31 L 33 ABG pO2 68 L 88 D ABG HCO3 21 22 ABG O2 Saturation 95 98 ABG Base Excess -3 -1 Quality Measures Quality Measures VTE prophylaxis Advance care planning discussed with:: patient Assessment & Plan Assessment Current Active Medications: Generic Name Dose Route Start Last Admin Trade Name Freq PRN Reason Stop Dose Admin Acetaminophen 650 mg 12/07/24 22:27 12/13/24 09:42 Acetaminophen Gisele 325 Mg/10 Ml Udc GT 01/06/25 22:26 650 mg Q4HR PRN Administration Pain Or Fever > 100 Protocol Acetylcysteine 4 ml 12/08/24 01:00 12/14/24 18:22 Acetylcysteine Rt Gisele 10% 4 Ml Nebu INH 01/07/25 00:59 4 ml Q6HRRT RE Administration Apixaban 5 mg 12/10/24 09:45 12/10/24 10:53 Apixaban 2.5 Mg Tablet GT 01/09/25 09:44 Not Given BID RE Aspirin 81 mg 12/08/24 09:00 12/14/24 08:17 Aspirin 81 Mg Chew GT 01/07/25 08:59 81 mg QDAY RE Administration Atorvastatin Calcium 40 mg 12/08/24 21:00 12/13/24 20:58 Atorvastatin Calcium 20 Mg Tablet GT 01/07/25 20:59 40 mg HS RE Administration Bisacodyl 10 mg 12/08/24 14:05 Bisacodyl 10 Mg Supp [place] 01/07/25 14:04 QDAY PRN CONSTIPATION Protocol Doxazosin Mesylate 1 mg 12/08/24 09:00 12/14/24 08:17 Doxazosin Mesylate 1 Mg Tablet GT 01/07/25 08:59 1 mg QDAY RE Administration Famotidine 20 mg 12/08/24 09:00 12/10/24 10:52 Famotidine 20 Mg Tablet GT 01/07/25 08:59 Not Given QDAY RE Fenofibrate 145 mg 12/08/24 09:00 12/14/24 08:18 Fenofibrate 145 Mg Tablet (Non-Formulary) GT 01/07/25 08:59 145 mg QDAY RE Administration Hydromorphone HCl 0.5 mg 12/13/24 09:52 Hydromorphone Inj 2 Mg/Ml Vial IVP 12/18/24 09:51 Q4HR PRN PAIN 7-10 Piperacillin/Tazobactam/Dextrose 3.375 gm in 50 mls @ 12.5 mls/hr 12/08/24 14:00 12/14/24 19:39 Zosyn IV 12/15/24 05:59 Infused Q8HR RE Infusion Protocol Fat Emulsion Intravenous 500 mls @ 32 mls/hr 12/13/24 18:00 12/14/24 19:41 Intralipid 20% Iv IV 01/12/25 17:59 Infused TUTHSA@1800 RE Infusion Potassium Acetate 60 meq/ 2,062 mls @ 80 mls/hr 12/14/24 18:00 12/14/24 17:46 Potassium Phosphate 24 mmol/ IV 12/15/24 17:59 80 mls/hr Multivitamins/Minerals 10 ml/ QDAY@1800 RE Administration Calcium Gluconate 1 gm/ Magnesium Sulfate 2 gm/ Amino Acids Levalbuterol HCl 1.25 mg 12/08/24 01:00 12/14/24 18:22 Levalbuterol Rt 1.25 Mg/0.5 Ml Nebu INH 01/07/25 00:59 1.25 mg Q6HRRT RE Administration Metoclopramide HCl 5 mg 12/12/24 21:00 12/14/24 08:16 Metoclopramide Inj 5 Mg/Ml Vial 2 Ml IVP 01/11/25 20:59 5 mg Q12HR RE Administration Protocol Ondansetron HCl 4 mg 12/07/24 22:12 12/11/24 01:09 Ondansetron Inj 2 Mg/Ml Inj 2 Ml IVP 01/06/25 22:11 4 mg Q6H PRN Administration NAUSEA OR VOMITING Protocol Oxcarbazepine 300 mg 12/08/24 09:00 12/14/24 08:18 Oxcarbazepine 150 Mg Tablet GT 01/07/25 08:59 300 mg BID RE Administration Pantoprazole Sodium 40 mg 12/10/24 10:30 12/14/24 08:17 Pantoprazole Inj 40 Mg Vial IVP 01/09/25 10:29 40 mg QDAY RE Administration Sennosides 8.8 mg 12/08/24 08:13 Sennosides Syrup 8.8 Mg/5 Ml Udc GT 01/07/25 08:06 QDAY PRN CONSTIPATION Protocol Sodium Chloride 3 ml 12/07/24 22:12 12/10/24 18:26 Sodium Chloride Rt Gisele 0.9% 3 Ml Nebu INH 01/06/25 22:11 3 ml PRN PRN Administration SOLN Plan A 79-year-old male with significant past medical history of CVA with right hemiplegia, aphasia, dysphagia s/p peg tube, pulmonary embolism on Eliquis, hypertension, hyperlipidemia, GERD, recurrent pneumonia was brought to the hospital with chief complaints of shortness of breath and admitted for acute hypoxic respiratory failure and septic shock. Patient was started on treatment with antibiotics and IV fluids. Later patient was found to have altered bowel movements for which abdominal x-ray was taken and found to have SBO pattern. Initially placed an NG tube and tried Gastrografin series but patient apparently pulled out NG tube and Gastrografin series was never completed. Later Dr. Blandon was consulted for SBO and possible surgery. Cardiology is consulted for clearance for the surgery. # Preop cardiac clearance # SBO - possible exploratory laparotomy - Brought to the hospital with chief complaints of shortness of breath and admitted for acute hypoxic respiratory failure and septic shock. - Patient was started on treatment with antibiotics and IV fluids. - Later patient was found to have altered bowel movements for which abdominal x- ray was taken and found to have SBO pattern. - Initially placed an NG tube and tried Gastrografin series but patient apparently pulled out NG tube and Gastrografin series was never completed. Later Dr. Blandon was consulted for SBO and possible surgery. - Patient did not have any previous history of CAD, PCI, CABG, pacemaker placement - At baseline, patient is bedbound and does not ambulate by himself Plan - RCRI score for preop risk is 2, 5% surgical mortality - EKG done on 12/07/2024 showed sinus tachycardia with poor R wave progression, no ST and T wave changes - Echocardiogram done on 11/2024 - Normal LV size. Mild LVH. Estimated at 65%. There is grade I diastolic dysfunction. The RV is normal in size and systolic function. Mild MAC. Trace MR. Mild aortic valve sclerosis without stenosis. Mild TR. Low cardiac risk for surgery - Can proceed with surgery with mild to moderate risk. #Severe Sepsis ? likely HAP/aspiration pneumonia #SBO #Hypernatremia #Hypokalemia and Hypophosphatemia #Anemia ? normocytic, stable #History of PE on Eliquis #CVA with PEG, aphasia, hemiplegia #Chronic comorbidities ? HTN, HLD, GERD, cocci - Rest of the medical conditions to be treated as per primary team Thank you for allowing us to involved in the care of the patient Patient plan of care was discussed with the commercial cleaner, Dr. Deion Salazar, PGY2
--- NOTE | 2024-12-14 22:30 | XR_ITS ---
Examination: Abdomen AP single view Technique: AP portable supine abdomen, single view Exam date and time: 09/10/2024 10:15 PM INDICATIONS: Abdominal pain and distention this week, 11 hour delayed film for small bowel series FINDINGS: Contrast in distended small bowel loops, however, contrast present throughout the colon IMPRESSION: Negative for complete small bowel obstruction, no further films are needed
[2024-12-15] VITALS (12 sets, daily range): BP systolic 139–159; BP diastolic 72–86; PULSE 67–88; RESP 16–100; TEMP 36.1–36.6; O2SAT 95–100; BMI 28.5
[2024-12-15] MEDS: LEVALBUTEROL RT 1.25 MG/0.5 ML NEBU INH ×4 (00:47→18:13)
[2024-12-15] MEDS: ACETYLCYSTEINE RT SOL 10% 4 ML NEBU INH ×4 (00:47→18:13)
--- NOTE | 2024-12-15 06:36 | PC.NURSE ---
patient refusing blood draw this am, phlebo spoke german and tried multiple times. will send someone in the daytime after he is awake.
[2024-12-15 08:44] LABS: Basophils # (Auto) 0.0 Thou/mm3 (0.0-0.2); Basophils % (Auto) 0 % (0-2.5); Eosinophils # (Auto) 0.1 Thou/mm3 (0.0-0.5); Eosinophils % (Auto) 1 % (0-10); Hematocrit 29.3 % (41.0-53.0); Hemoglobin 9.7 g/dL (13.5-16.0); Immature Granulocytes Auto 0.45 Thou/mm3 (0.00-0.00); Lymphocytes # (Auto) 1.0 Thou/mm3 (1.0-4.8); Lymphocytes % (Auto) 15 % (10-50); Mean Corpuscular HGB Conc 33.1 g/dl (31.0-37.0); Mean Corpuscular Hemoglobin 30.8 pg (25.0-35.0); Mean Corpuscular Volume 93 fL (80-100); Monocytes # (Auto) 0.4 Thou/mm3 (0.0-0.8); Monocytes % (Auto) 6 % (0-12); Neutrophils # (Auto) 4.8 Thou/mm3 (1.8-7.7); Neutrophils % (Auto) 71 % (37-80); Nucleated Red Blood Cell # 0.00 Thou/mm3 (0.00-0.00); Nucleated Red Blood Cell % 0 /100 WBC (0); Platelet Count 287 Thou/mm3 (140-440); RDW Standard Deviation 49.9 fL (35.1-43.9); Red Blood Count 3.15 Miln/mm3 (4.50-5.90); White Blood Count 6.8 Thou/mm3 (3.8-10.6)
[2024-12-15 08:51] LABS: INR 1.1 (0.9-1.3); Partial Thromboplastin Time 27.2 Seconds (22.0-36.0); Prothrombin Time 11.9 Seconds (9.0-12.2)
[2024-12-15] MEDS: METOCLOPRAMIDE INJ 5 MG/ML VIAL 2 ML IVP ×2 (08:58→20:20)
[2024-12-15] MEDS: ASPIRIN 81 MG CHEW GT (08:58)
[2024-12-15] MEDS: DOXAZOSIN MESYLATE 1 MG TABLET GT (08:58)
[2024-12-15] MEDS: FENOFIBRATE 145 MG TABLET (NON-FORMULARY) GT (08:59)
[2024-12-15 09:01] LABS: Alanine Aminotransferase 10 U/L (10-49); Albumin, Serum 2.3 gm/dL (3.4-4.8); Albumin/Globulin Ratio 0.9 (1.2-2.2); Alkaline Phosphatase 38 U/L (46-116); Anion Gap 6 (7-16); Aspartate Amino Transferase 24 U/L (0-34); BUN/Creatinine Ratio 18 Ratio (12-20); Bilirubin,Total 0.3 mg/dL (0.3-1.2); Blood Urea Nitrogen 9 mg/dL (9-23); Calcium 7.7 mg/dL (8.3-10.6); Calcium (Corrected) 9.1 mg/dL (8.5-10.1); Carbon Dioxide 20.9 mMol/L (20.0-31.0); Chloride 107 mMol/L (98-107); Creatinine (Component) 0.5 mg/dL (0.6-1.3); Estimated Creatinine Clearance 121.4 mL/min (>60); Globulin 2.5 gm/dL (2.3-3.5); Glucose 309 mg/dL (74-106); Magnesium 2.5 mg/dL (1.6-2.6); Osmolality,Calculated 278 (275-295); Phosphorous 3.6 mg/dL (2.4-5.1); Potassium 5.5 mMol/L (3.4-5.1); Sodium 134 mMol/L (136-145); Total Protein 4.8 gm/dL (5.7-8.2); eGFR > 60 See Note
--- NOTE | 2024-12-15 10:17 | PC.SS ---
Per morning rounding, pt will stay for a colonoscopy prep/exam. Dr. Gutierrez following. No d/c date at this time. Pt will return to [facility].
[2024-12-15] MEDS: INSULIN LISPRO (AdmeLOG) 1 UNIT/0.01 ML UNIT 3 UNIT SC (10:48)
[2024-12-15] MEDS: NA SU/NAHCO3/KC/PEG (Golytely) 4,000 ML BTL 4000 ML NG (10:50)
[2024-12-15] MEDS: [UNRECOGNIZED DRUG - OTHER] IV (10:50)
[2024-12-15] MEDS: CALCIUM GLUCONATE 10% INJ 1 GM/10 ML VIAL IV (10:50)
[2024-12-15] MEDS: MULTIVITAMIN IV (10:50)
[2024-12-15] MEDS: CALCIUM GLUCONATE IV (10:50)
[2024-12-15] MEDS: ALBUTEROL RT 2.5 MG/0.5 ML NEBU 5 MG INH (12:17)
[2024-12-15 13:41] LABS: Potassium 3.3 mMol/L (3.4-5.1)
--- NOTE | 2024-12-15 13:54 | ESPR_ITS ---
<Statement entered by Piedad Berger MD - 12/21/24 07:31> I reviewed above note and agree with findings and plans. I have also personally examined the patient with medicine team and went over assessment and plan with medical team including internet marketing intern and resident physician. Documentation for date of: 12/15/24 Subjective Subjective Interval history: Patient was seen and examined at the bedside. He appeared to be sleeping comfortably but was easily arousable. When asked how he was doing, he responded good. He remains semi-verbal but more interactive than before. He continues to endorse mild lower abdominal pain, and on palpation has discomfort in the lower abdomen. General Surgery was consulted and noted that the last two series were negative for complete SBO. After confirming with Dr. Gutierrez (GI), the plan is to start GoLYTELY prep via NG tube. NG suction was stopped, and the prep was initiated this morning. Awaiting further instructions from GI regarding colonoscopy timing. Exam Vital Signs Temp Pulse Resp BP Pulse Ox O2 Del Method O2 Flow Rate 97.4 F 80 18 143/81 H 100 Room Air 2 12/15/24 12:00 12/15/24 12:23 12/15/24 12:23 12/15/24 12:00 12/15/24 12:23 12/15/24 12:00 12/14/24 12:00 Narrative Exam Gen: Somnolent but arousable, no acute distress HEENT: Mucous membranes moist CV: RRR, no murmurs, BP 141/81 Pulm: Diminished breath sounds bilaterally, no increased work of breathing, sat >95% on room air Abd: Soft, mildly distended, mild lower abdominal tenderness, PEG and NG tube in place Neuro: A&O x1, chronic right hemiplegia and facial droop Skin: Intact, no rash or breakdown Ext: No edema Objective Labs 12/15/24 08:19 12/15/24 12:50 Labs: Laboratory Results - last 24 hr 12/15/24 12/15/24 08:19 12:50 WBC 6.8 RBC 3.15 L Hgb 9.7 L Hct 29.3 L MCV 93 MCH 30.8 MCHC 33.1 RDW Std Deviation 49.9 H Plt Count 287 D Neut % (Auto) 71 Lymph % (Auto) 15 [place] % (Auto) 6 Eos % (Auto) 1 Baso % (Auto) 0 Neut # (Auto) 4.8 Lymph # (Auto) 1.0 [place] # (Auto) 0.4 Eos # (Auto) 0.1 Baso # (Auto) 0.0 Immature Gran # (Auto) 0.45 H Absolute Nucleated RBC 0.00 Immature Gran % 7 H Nucleated RBC % 0 PT 11.9 INR 1.1 APTT 27.2 Sodium 134 L D Potassium 5.5 H D 3.3 L D Chloride 107 Carbon Dioxide 20.9 Anion Gap 6 L BUN 9 Creatinine 0.5 L Estim Creat Clear Calc 121.4 eGFR > 60 BUN/Creatinine Ratio 18 Glucose 309 H D Calculated Osmolality 278 Calcium 7.7 L Corrected Calcium 9.1 Phosphorus 3.6 Magnesium 2.5 Total Bilirubin 0.3 AST 24 ALT 10 Alkaline Phosphatase 38 L Total Protein 4.8 L Albumin 2.3 L Globulin 2.5 Albumin/Globulin Ratio 0.9 L ABG Interpretation ABG results: 12/07/24 12/08/24 20:42 07:22 ABG pH 7.44 7.44 ABG pCO2 31 L 33 ABG pO2 68 L 88 D ABG HCO3 21 22 ABG O2 Saturation 95 98 ABG Base Excess -3 -1 Quality Measures Quality Measures VTE prophylaxis Advance care planning discussed with:: patient Assessment & Plan Assessment Current Active Medications: Generic Name Dose Route Start Last Admin Trade Name Freq PRN Reason Stop Dose Admin Acetaminophen 650 mg 12/07/24 22:27 12/13/24 09:42 Acetaminophen Gisele 325 Mg/10 Ml Udc GT 01/06/25 22:26 650 mg Q4HR PRN Administration Pain Or Fever > 100 Protocol Acetylcysteine 4 ml 12/08/24 01:00 12/15/24 12:17 Acetylcysteine Rt Gisele 10% 4 Ml Nebu INH 01/07/25 00:59 4 ml Q6HRRT RE Administration Apixaban 5 mg 12/10/24 09:45 12/10/24 10:53 Apixaban 2.5 Mg Tablet GT 01/09/25 09:44 Not Given BID RE Aspirin 81 mg 12/08/24 09:00 12/15/24 08:58 Aspirin 81 Mg Chew GT 01/07/25 08:59 81 mg QDAY RE Administration Atorvastatin Calcium 40 mg 12/08/24 21:00 12/14/24 23:18 Atorvastatin Calcium 20 Mg Tablet GT 01/07/25 20:59 Not Given HS RE Bisacodyl 10 mg 12/08/24 14:05 Bisacodyl 10 Mg Supp [place] 01/07/25 14:04 QDAY PRN CONSTIPATION Protocol Dextrose 25 ml 12/15/24 10:03 Dextrose 50%-Water Inj 50 Ml Syringe IV 01/14/25 10:02 Q15MIN PRN BG 50-70 responsive npo pt Dextrose 50 ml 12/15/24 10:03 Dextrose 50%-Water Inj 50 Ml Syringe IV 01/14/25 10:02 Q15MIN PRN BG <50 OR BG <70 & pt unresponsive Doxazosin Mesylate 1 mg 12/08/24 09:00 12/15/24 08:58 Doxazosin Mesylate 1 Mg Tablet GT 01/07/25 08:59 1 mg QDAY RE Administration Famotidine 20 mg 12/08/24 09:00 12/10/24 10:52 Famotidine 20 Mg Tablet GT 01/07/25 08:59 Not Given QDAY RE Fenofibrate 145 mg 12/08/24 09:00 12/15/24 08:59 Fenofibrate 145 Mg Tablet (Non-Formulary) GT 01/07/25 08:59 145 mg QDAY RE Administration Glucagon 1 mg 12/15/24 10:03 Glucagon Inj 1 Mg Vial IM Q15MIN PRN BG <70, and no IV access Hydromorphone HCl 0.5 mg 12/13/24 09:52 Hydromorphone Inj 2 Mg/Ml Vial IVP 12/18/24 09:51 Q4HR PRN PAIN 7-10 Fat Emulsion Intravenous 500 mls @ 32 mls/hr 12/13/24 18:00 12/14/24 19:41 Intralipid 20% Iv IV 01/12/25 17:59 Infused [id number] Infusion Multivitamins/Minerals 10 ml/ 2,020 mls @ 78.371 mls/hr 12/15/24 10:30 12/15/24 10:50 Calcium Gluconate 1 gm/ Amino IV 12/16/24 12:16 78.371 mls/hr Acids X1 ONE Administration Insulin Human Lispro 0 unit 12/15/24 12:00 12/15/24 12:08 Insulin Lispro (Admelog) 1 Unit/0.01 Ml Unit SC 01/14/25 11:59 Not Given Q6HR RE Protocol Levalbuterol HCl 1.25 mg 12/08/24 01:00 12/15/24 12:17 Levalbuterol Rt 1.25 Mg/0.5 Ml Nebu INH 01/07/25 00:59 1.25 mg Q6HRRT RE Administration Metoclopramide HCl 5 mg 12/12/24 21:00 12/15/24 08:58 Metoclopramide Inj 5 Mg/Ml Vial 2 Ml IVP 01/11/25 20:59 5 mg Q12HR RE Administration Protocol Ondansetron HCl 4 mg 12/07/24 22:12 12/11/24 01:09 Ondansetron Inj 2 Mg/Ml Inj 2 Ml IVP 01/06/25 22:11 4 mg Q6H PRN Administration NAUSEA OR VOMITING Protocol Oxcarbazepine 300 mg 12/08/24 09:00 12/15/24 08:58 Oxcarbazepine 150 Mg Tablet GT 01/07/25 08:59 300 mg BID RE Administration Pantoprazole Sodium 40 mg 12/10/24 10:30 12/15/24 08:58 Pantoprazole Inj 40 Mg Vial IVP 01/09/25 10:29 40 mg QDAY RE Administration Sennosides 8.8 mg 12/08/24 08:13 Sennosides Syrup 8.8 Mg/5 Ml Udc GT 01/07/25 08:06 QDAY PRN CONSTIPATION Protocol Sodium Chloride 3 ml 12/07/24 22:12 12/10/24 18:26 Sodium Chloride Rt Gisele 0.9% 3 Ml Nebu INH 01/06/25 22:11 3 ml PRN PRN Administration SOLN Plan 79M with PEG, CVA, and recent SBO, now improving clinically with negative 272 series, tolerating NG tube, starting GoLYTELY prep per GI and Surgery for possible colonoscopy today. #Small Bowel Obstruction (SBO) High-grade SBO on CT with rectal stool burden and features concerning for proctitis. Multiple BMs past 2 days. NG tube was removed by patient but successfully replaced on 12/13. Suction output was 350 mL on 12/13 and about 100 mL morning of 12/14 Previously high-grade SBO now improving. Last two 272 series negative for complete obstruction. Patient tolerating NG tube, now off suction, starting GoLYTELY prep via NG per general surgery and Dr. Gutierrez. Plan: * Stop NG suction, start GoLYTELY via NG (initiated today) * Await GI for possible colonoscopy * Monitor abdominal exam, distension, and output * Keep NPO #Sepsis ? likely HAP/aspiration pneumonia Previously admitted for recurrent pneumonia with sepsis and hypoxia. Now stable on Zosyn and Doxy. Cultures negative (blood, sputum, MRSA). O2 sat stable on room air CXR shows bilateral perihilar infiltrates. Lactic acid improved (6.3 --> 5.8 --> 3.3 -> 2.4). WBC 6.0, CRP 32.0, Procalcitonin 5.48. CT abdomen shows new right lower lobe pneumonia and moderate right pleural effusion. Thick secretions improving with suctioning. Treated with Zosyn and Doxy (day 7). Off O2. Afebrile, stable WBC. Plan: * Completed antibiotic course yesterday * Suction PRN * Continue acetylcysteine and levalbuterol nebulizers * Titrate O2 as needed to maintain SpO2 > 92% * Continue aspiration precautions (HOB >30?) * Discontinue IV fluids since patient is on PPN * Monitor for new signs of infection #Hypernatremia Sodium has normalized to 134 from peak of 154. Plan: * No further sodium correction needed * Continue to monitor BMP * Maintain euvolemia #Hyperkalemia (resolved) K peaked at 5.5 this morning. Patient was treated with insulin, calcium gluconate, and breathing treatment. Post-treatment K dropped to 3.3, so 20 mEq IV KCl was given. Plan: * Monitor BMP qAM * Replete K if <3.5 * Watch for signs of rebound or hypokalemia #Electrolyes imbalance #Hypophosphatemia and hypomagnesemia (resolved) Electrolytes within normal currently Plan: * Monitor daily CMP, Mag and Phos * Replete PRN #Anemia ? normocytic, stable Hgb stable at 9.7, no overt signs of bleeding Plan: * Monitor serial CBCs * Monitor hemodynamic status * No transfusion at this time #History of PE on Eliquis Anticoagulation held due to GI issues and SBO management Plan: * Continue to Hold Eliquis * Monitor Hgb and signs of bleeding or thrombosis * On SCD's #CVA with PEG, aphasia, hemiplegia Chronic deficits, now more alert and intermittently verbal, responsive to questions Plan: * Maintain aspiration precautions * Reposition regularly * Continue to hold PO/GT meds for now #Chronic comorbidities ? HTN, HLD, GERD, cocci Stable, no acute concerns Plan: * Continue atorvastatin, Protonix IV, hold other GT meds as appropriate Health Maintenance Disposition: Tele Diet: NPO (on GoLYTELY via NG for colonoscopy prep) DVT prophylaxis: Aspirin 81mg GI prophylaxis: Protonix 40mg IV [place]: Present Lines: PIV PEG: In, Suction stopped NG tube: In place, Suction Stopped O2: Room air Code Status: DNR ----- Plan discussed with attending physician Dr. Ab Hernandez MD PGY-1 Internal Medicine
[2024-12-15] MEDS: POTASSIUM CHL 10 mEq IVPB 10 MEQ/100 ML BAG 100 MEQ IV (15:18)
[2024-12-15] MEDS: FAT EMULSIONS 20% IV 500 ML 32 ML IV (17:52)
[2024-12-15] MEDS: POTASSIUM CHL 10 mEq IVPB 10 MEQ/100 ML BAG 75 MEQ IV (18:01)
[2024-12-15] MEDS: ACETAMINOPHEN SOL 325 MG/10 ML UDC 650 MG GT (18:01)
--- NOTE | 2024-12-15 18:19 | PD.IMPROG ---
Documentation for date of: 12/15/24 Subjective Subjective Interval history: Gastrografin small bowel follow-through shows no obstruction there is a contrast in the colon patient having bowel movements GoLytely will be started again Exam Vital Signs Temp Pulse Resp BP Pulse Ox O2 Del Method O2 Flow Rate 97.0 F 76 18 139/80 H 97 Room Air 2 12/15/24 16:00 12/15/24 16:00 12/15/24 16:00 12/15/24 16:00 12/15/24 16:00 12/15/24 16:00 12/14/24 12:00 Objective Labs 12/15/24 08:19 12/15/24 12:50 Labs: Laboratory Results - last 24 hr 12/15/24 12/15/24 08:19 12:50 WBC 6.8 RBC 3.15 L Hgb 9.7 L Hct 29.3 L MCV 93 MCH 30.8 MCHC 33.1 RDW Std Deviation 49.9 H Plt Count 287 D Neut % (Auto) 71 Lymph % (Auto) 15 [place] % (Auto) 6 Eos % (Auto) 1 Baso % (Auto) 0 Neut # (Auto) 4.8 Lymph # (Auto) 1.0 [place] # (Auto) 0.4 Eos # (Auto) 0.1 Baso # (Auto) 0.0 Immature Gran # (Auto) 0.45 H Absolute Nucleated RBC 0.00 Immature Gran % 7 H Nucleated RBC % 0 PT 11.9 INR 1.1 APTT 27.2 Sodium 134 L D Potassium 5.5 H D 3.3 L D Chloride 107 Carbon Dioxide 20.9 Anion Gap 6 L BUN 9 Creatinine 0.5 L Estim Creat Clear Calc 121.4 eGFR > 60 BUN/Creatinine Ratio 18 Glucose 309 H D Calculated Osmolality 278 Calcium 7.7 L Corrected Calcium 9.1 Phosphorus 3.6 Magnesium 2.5 Total Bilirubin 0.3 AST 24 ALT 10 Alkaline Phosphatase 38 L Total Protein 4.8 L Albumin 2.3 L Globulin 2.5 Albumin/Globulin Ratio 0.9 L Impressions Impression: Ileus/small bowel obstruction resolved Stool impaction Continue GoLytely and once the colon is clean we will consider doing a fiberoptic colonoscopy ABG Interpretation ABG results: 12/07/24 12/08/24 20:42 07:22 ABG pH 7.44 7.44 ABG pCO2 31 L 33 ABG pO2 68 L 88 D ABG HCO3 21 22 ABG O2 Saturation 95 98 ABG Base Excess -3 -1 Assessment & Plan A&P Narrative 79-year-old male with past medical history of cerebrovascular accident with residual right-sided weakness, aphasia, and dysphagia status post PEG tube placement, pulmonary embolism on Eliquis, GERD, hypertension, hyperlipidemia, and recurrent pneumonia admitted for septic shock likely due to hospital-acquired pneumonia/aspiration pneumonia. #Small Bowel Obstruction Abdominal X-rays and CT abdomen/pelvis showed persistent high-grade small bowel obstruction. NG tube remains unplaced. A 12 [place] NG tube was recommended by Dr. Gutierrez. According to nursing staff, an attempt was made; however, the patient poorly tolerated the procedure, developing coughing and oxygen desaturation during the attempt. Resistance was encountered at 45 cm. Plan - Initiate PPN due to continued NPO status and inability to tolerate NG placement - Change PEG tube drainage method to intermittent suction - Start Metoclopramide 5mg Q12HR - Continue close monitoring for signs of clinical deterioration (increased pain, tachycardia, leukocytosis) - Continue IV fluids to maintain hydration and electrolyte balance - Monitor I/Os, abdominal girth Patient plan of care was discussed with attending physician, Dr. Gutierrez. Cliff Riggs DO PGY-1 Attending attestation patient examined with internal medicine team X-rays reviewed imaging studies reviewed laboratory data reviewed Recommendations are Placement of an NGT with patient with soft restraints to intermittent suction Repeat abdominal x-ray in the morning Agree with PPN Will follow the patient closely There is a lot of stool burden on the left side of the colon Once the ileus/small bowel obstruction resolves We will give the GoLytely to clean the colon out No invasive GI workup planned at the moment Thank you for the opportunity to participate in the care of this patient Time Spent With Patient Time: Total time spent is greater than 50% in coordination of care (as documented) at patient's floor/unit and/or counseling patient:
[2024-12-15] MEDS: ATORVASTATIN CALCIUM 20 MG TABLET 40 MG GT (20:21)
[2024-12-16] VITALS (18 sets, daily range): BP systolic 115–158; BP diastolic 64–76; PULSE 66–103; RESP 13–97; TEMP 36.1–37.2; O2SAT 95–100; BMI 28.5
--- NOTE | 2024-12-16 | PC.NURSE ---
pateint vomitted golytely in copious amounts. Bed was soaked, pillows were dripping. we gave patient a bath and changed all linen. I notified Dr. Penn and he wants the golytely stopped for now, and put ng tube back up to intermittent suction.
[2024-12-16] MEDS: LEVALBUTEROL RT 1.25 MG/0.5 ML NEBU INH ×3 (00:08→12:20)
[2024-12-16] MEDS: ACETYLCYSTEINE RT SOL 10% 4 ML NEBU INH ×3 (00:08→12:20)
[2024-12-16 05:53] LABS: Basophils # (Auto) 0.0 Thou/mm3 (0.0-0.2); Basophils % (Auto) 0 % (0-2.5); Eosinophils # (Auto) 0.0 Thou/mm3 (0.0-0.5); Eosinophils % (Auto) 0 % (0-10); Hematocrit 30.2 % (41.0-53.0); Hemoglobin 10.6 g/dL (13.5-16.0); Immature Granulocytes Auto 0.33 Thou/mm3 (0.00-0.00); Lymphocytes # (Auto) 0.9 Thou/mm3 (1.0-4.8); Lymphocytes % (Auto) 10 % (10-50); Mean Corpuscular HGB Conc 35.1 g/dl (31.0-37.0); Mean Corpuscular Hemoglobin 31.5 pg (25.0-35.0); Mean Corpuscular Volume 90 fL (80-100); Monocytes # (Auto) 0.5 Thou/mm3 (0.0-0.8); Monocytes % (Auto) 5 % (0-12); Neutrophils # (Auto) 7.6 Thou/mm3 (1.8-7.7); Neutrophils % (Auto) 82 % (37-80); Nucleated Red Blood Cell # 0.00 Thou/mm3 (0.00-0.00); Nucleated Red Blood Cell % 0 /100 WBC (0); Platelet Count 389 Thou/mm3 (140-440); RDW Standard Deviation 46.6 fL (35.1-43.9); Red Blood Count 3.36 Miln/mm3 (4.50-5.90); White Blood Count 9.3 Thou/mm3 (3.8-10.6)
[2024-12-16] MEDS: INSULIN LISPRO (AdmeLOG) 1 UNIT/0.01 ML UNIT SC ×2 (05:53→18:29)
--- NOTE | 2024-12-16 06:11 | PC.NURSE ---
patient's gastric content from ng appears dark in color. I did a gastric occult test and it was positiive for blood. I notified Dr. Penn and let him know the ng tube output was 1500ml
[2024-12-16 06:20] LABS: INR 1.1 (0.9-1.3); Partial Thromboplastin Time 28.9 Seconds (22.0-36.0); Prothrombin Time 11.6 Seconds (9.0-12.2)
[2024-12-16 06:35] LABS: Alanine Aminotransferase 12 U/L (10-49); Albumin, Serum 2.6 gm/dL (3.4-4.8); Albumin/Globulin Ratio 0.9 (1.2-2.2); Alkaline Phosphatase 49 U/L (46-116); Anion Gap 9 (7-16); Aspartate Amino Transferase 25 U/L (0-34); BUN/Creatinine Ratio 24 Ratio (12-20); Bilirubin,Total 0.3 mg/dL (0.3-1.2); Blood Urea Nitrogen 12 mg/dL (9-23); Calcium 8.4 mg/dL (8.3-10.6); Calcium (Corrected) 9.5 mg/dL (8.5-10.1); Carbon Dioxide 22.7 mMol/L (20.0-31.0); Chloride 108 mMol/L (98-107); Creatinine (Component) 0.5 mg/dL (0.6-1.3); Estimated Creatinine Clearance 121.4 mL/min (>60); Globulin 2.9 gm/dL (2.3-3.5); Glucose 157 mg/dL (74-106); Magnesium 1.5 mg/dL (1.6-2.6); Osmolality,Calculated 282 (275-295); Phosphorous 1.5 mg/dL (2.4-5.1); Potassium 3.3 mMol/L (3.4-5.1); Sodium 140 mMol/L (136-145); Total Protein 5.5 gm/dL (5.7-8.2); eGFR > 60 See Note
[2024-12-16 07:15] LABS: OBG Card Expiration Date 12/2026; OBG Card Lot # 20152; OBG Developer Lot # 75027G; OBG Performed By adamk; OBG QC OK? Yes
[2024-12-16 07:16] LABS: Occult Blood, Gastric Positive (Negative)
--- NOTE | 2024-12-16 07:46 | ESPR_ITS ---
<Statement entered by Piedad Berger MD - 12/21/24 07:33> I reviewed above note and agree with findings and plans. I have also personally examined the patient with medicine team and went over assessment and plan with medical team including spring intern and resident physician. <Statement entered by Jcarlos Aguayo MD - 12/16/24 16:06> Patient seen and examined at bedside. I discussed and supervised with the spring intern physician who took care of this patient. I personally saw and examined the patient. I agree with most of the assessment and plan. Patient had vomiting, placed on NG with LIS, which had significant bloody output. Repeat KUB showed SBO recurrence, confirmed with CT A/P with con. Gen surg spoke to family, plan to take patient for ex-lap. Patient otherwise resting comfortably on room air. Plan of care discussed with attending Dr. Berger. Jcarlos Aguayo MD PGY-2 Documentation for date of: 12/16/24 Subjective Subjective Interval history: Overnight events: Per nursing staff, patient's gastric content from ng appears dark in color, gastric occult test positive for blood. Ng tube output was 1500mL. Night team physician notified. Evaluated at bedside. Per nursing, pt had one episode of vomiting overnight. Stopped Golytely, change NG tube suction to intermittent. KUB ordered due to abdominal distension, which shows Small bowel obstruction pattern. CT A/P shows bibasilar pneumonia with large right pleural effusion, small bowel obstruction pattern, and significant prostatmegaly. Gen surg consulted, plan for OR today for exploratory laparotomy, possible bowel resection, possible ostomy. Exam Vital Signs Temp Pulse Resp BP Pulse Ox O2 Del Method O2 Flow Rate 98.2 F 80 22 H 158/76 H 95 Room Air 2 12/16/24 07:21 12/16/24 07:21 12/16/24 07:21 12/16/24 07:21 12/16/24 07:21 12/16/24 04:00 12/16/24 00:00 Narrative Exam Gen: Somnolent but arousable, no acute distress HEENT: Mucous membranes moist CV: RRR, no murmurs. Pulm: Diminished breath sounds bilaterally, no increased work of breathing, sat >95% on room air Abd: moderately distended, mild lower abdominal tenderness, PEG and NG tube in place. Neuro: A&O x1, chronic right hemiplegia and facial droop Skin: Intact, no rash or breakdown Ext: Edematous to B/L upper exetrmities, no pitting edema. Objective Labs 12/16/24 04:42 12/16/24 12:43 Labs: Laboratory Results - last 24 hr 12/15/24 12/15/24 12/16/24 08:19 12:50 04:42 WBC 6.8 9.3 RBC 3.15 L 3.36 L Hgb 9.7 L 10.6 L Hct 29.3 L 30.2 L MCV 93 90 MCH 30.8 31.5 MCHC 33.1 35.1 RDW Std Deviation 49.9 H 46.6 H Plt Count 287 D 389 D Neut % (Auto) 71 82 H Lymph % (Auto) 15 10 [place] % (Auto) 6 5 Eos % (Auto) 1 0 Baso % (Auto) 0 0 Neut # (Auto) 4.8 7.6 Lymph # (Auto) 1.0 0.9 L [place] # (Auto) 0.4 0.5 Eos # (Auto) 0.1 0.0 Baso # (Auto) 0.0 0.0 Immature Gran # (Auto) 0.45 H 0.33 H Absolute Nucleated RBC 0.00 0.00 Immature Gran % 7 H 4 H Nucleated RBC % 0 0 PT 11.9 11.6 INR 1.1 1.1 APTT 27.2 28.9 Sodium 134 L D 140 Potassium 5.5 H D 3.3 L D 3.3 L Chloride 107 108 H Carbon Dioxide 20.9 22.7 Anion Gap 6 L 9 BUN 9 12 Creatinine 0.5 L 0.5 L Estim Creat Clear Calc 121.4 121.4 eGFR > 60 > 60 BUN/Creatinine Ratio 18 24 H Glucose 309 H D 157 H D Calculated Osmolality 278 282 Calcium 7.7 L 8.4 Corrected Calcium 9.1 9.5 Phosphorus 3.6 1.5 L Magnesium 2.5 1.5 L Total Bilirubin 0.3 0.3 AST 24 25 ALT 10 12 Alkaline Phosphatase 38 L 49 D Total Protein 4.8 L 5.5 L Albumin 2.3 L 2.6 L Globulin 2.5 2.9 Albumin/Globulin Ratio 0.9 L 0.9 L Gastric Occult Blood 12/16/24 05:50 WBC RBC Hgb Hct MCV MCH MCHC RDW Std Deviation Plt Count Neut % (Auto) Lymph % (Auto) [place] % (Auto) Eos % (Auto) Baso % (Auto) Neut # (Auto) Lymph # (Auto) [place] # (Auto) Eos # (Auto) Baso # (Auto) Immature Gran # (Auto) Absolute Nucleated RBC Immature Gran % Nucleated RBC % PT INR APTT Sodium Potassium Chloride Carbon Dioxide Anion Gap BUN Creatinine Estim Creat Clear Calc eGFR BUN/Creatinine Ratio Glucose Calculated Osmolality Calcium Corrected Calcium Phosphorus Magnesium Total Bilirubin AST ALT Alkaline Phosphatase Total Protein Albumin Globulin Albumin/Globulin Ratio Gastric Occult Blood Positive A ABG Interpretation ABG results: 12/07/24 12/08/24 20:42 07:22 ABG pH 7.44 7.44 ABG pCO2 31 L 33 ABG pO2 68 L 88 D ABG HCO3 21 22 ABG O2 Saturation 95 98 ABG Base Excess -3 -1 Quality Measures Quality Measures VTE prophylaxis Advance care planning discussed with:: patient Assessment & Plan Assessment Current Active Medications: Generic Name Dose Route Start Last Admin Trade Name Freq PRN Reason Stop Dose Admin Acetaminophen 650 mg 12/07/24 22:27 12/15/24 18:01 Acetaminophen Gisele 325 Mg/10 Ml Udc GT 01/06/25 22:26 650 mg Q4HR PRN Administration Pain Or Fever > 100 Protocol Acetylcysteine 4 ml 12/08/24 01:00 12/16/24 06:27 Acetylcysteine Rt Gisele 10% 4 Ml Nebu INH 01/07/25 00:59 4 ml Q6HRRT RE Administration Apixaban 5 mg 12/10/24 09:45 12/10/24 10:53 Apixaban 2.5 Mg Tablet GT 01/09/25 09:44 Not Given BID RE Aspirin 81 mg 12/08/24 09:00 12/15/24 08:58 Aspirin 81 Mg Chew GT 01/07/25 08:59 81 mg QDAY RE Administration Atorvastatin Calcium 40 mg 12/08/24 21:00 12/15/24 20:21 Atorvastatin Calcium 20 Mg Tablet GT 01/07/25 20:59 40 mg HS RE Administration Bisacodyl 10 mg 12/08/24 14:05 Bisacodyl 10 Mg Supp [place] 01/07/25 14:04 QDAY PRN CONSTIPATION Protocol Dextrose 25 ml 12/15/24 10:03 Dextrose 50%-Water Inj 50 Ml Syringe IV 01/14/25 10:02 Q15MIN PRN BG 50-70 responsive npo pt Dextrose 50 ml 12/15/24 10:03 Dextrose 50%-Water Inj 50 Ml Syringe IV 01/14/25 10:02 Q15MIN PRN BG <50 OR BG <70 & pt unresponsive Doxazosin Mesylate 1 mg 12/08/24 09:00 12/15/24 08:58 Doxazosin Mesylate 1 Mg Tablet GT 01/07/25 08:59 1 mg QDAY RE Administration Famotidine 20 mg 12/08/24 09:00 12/10/24 10:52 Famotidine 20 Mg Tablet GT 01/07/25 08:59 Not Given QDAY RE Fenofibrate 145 mg 12/08/24 09:00 12/15/24 08:59 Fenofibrate 145 Mg Tablet (Non-Formulary) GT 01/07/25 08:59 145 mg QDAY RE Administration Glucagon 1 mg 12/15/24 10:03 Glucagon Inj 1 Mg Vial IM Q15MIN PRN BG <70, and no IV access Hydromorphone HCl 0.5 mg 12/13/24 09:52 Hydromorphone Inj 2 Mg/Ml Vial IVP 12/18/24 09:51 Q4HR PRN PAIN 7-10 Fat Emulsion Intravenous 500 mls @ 32 mls/hr 12/13/24 18:00 12/15/24 17:52 Intralipid 20% Iv IV 01/12/25 17:59 32 mls/hr TUTHSA@1800 RE Administration Multivitamins/Minerals 10 ml/ 2,020 mls @ 78.371 mls/hr 12/15/24 10:30 12/15/24 10:50 Calcium Gluconate 1 gm/ Amino IV 12/16/24 12:16 78.371 mls/hr Acids X1 ONE Administration Potassium Phosphate 15 mmol in 250 mls @ 62.5 mls/hr 12/16/24 07:14 Pot Phos 15 Mmol In Ns 250 Ml IV 12/16/24 15:13 Q4H RE Magnesium Sulfate 4 gm in 50 mls @ 12.5 mls/hr 12/16/24 07:14 Magnesium Sulfate Ivpb IV 12/16/24 11:13 X1 ONE Insulin Human Lispro 0 unit 12/15/24 12:00 12/16/24 05:53 Insulin Lispro (Admelog) 1 Unit/0.01 Ml Unit SC 01/14/25 11:59 1 unit Q6HR RE Administration Protocol Levalbuterol HCl 1.25 mg 12/08/24 01:00 12/16/24 06:27 Levalbuterol Rt 1.25 Mg/0.5 Ml Nebu INH 01/07/25 00:59 1.25 mg Q6HRRT RE Administration Metoclopramide HCl 5 mg 12/12/24 21:00 12/15/24 20:20 Metoclopramide Inj 5 Mg/Ml Vial 2 Ml IVP 01/11/25 20:59 5 mg Q12HR RE Administration Protocol Ondansetron HCl 4 mg 12/07/24 22:12 12/11/24 01:09 Ondansetron Inj 2 Mg/Ml Inj 2 Ml IVP 01/06/25 22:11 4 mg Q6H PRN Administration NAUSEA OR VOMITING Protocol Oxcarbazepine 300 mg 12/08/24 09:00 12/15/24 20:21 Oxcarbazepine 150 Mg Tablet GT 01/07/25 08:59 300 mg BID RE Administration Pantoprazole Sodium 40 mg 12/10/24 10:30 12/15/24 08:58 Pantoprazole Inj 40 Mg Vial IVP 01/09/25 10:29 40 mg QDAY RE Administration Sennosides 8.8 mg 12/08/24 08:13 Sennosides Syrup 8.8 Mg/5 Ml Udc GT 01/07/25 08:06 QDAY PRN CONSTIPATION Protocol Sodium Chloride 3 ml 12/07/24 22:12 12/10/24 18:26 Sodium Chloride Rt Gisele 0.9% 3 Ml Nebu INH 01/06/25 22:11 3 ml PRN PRN Administration SOLN Plan 79M with hx of PEG, CVA with residual R sided deficit, ,recent SBO, and recurrent pneumonia admitted for acute respiratory failure with hypoxia. Nursing reported patient's gastric content from ng appears dark in color, gastric occult test positive for blood. Ng tube output was 1500mL. GoLYTELY stopped. Bedside exam today shows distended abdomen, KUB shows SBO pattern, CT A/P confirms SBO. Gen Surg consulted, plan for ex-lap today. #Small Bowel Obstruction (SBO) High-grade SBO on CT with rectal stool burden and features concerning for proctitis. Multiple BMs past 2 days. NG tube was removed by patient but successfully replaced on 12/13. Suction output was 350 mL on 12/13 and about 100 mL morning of 12/14. On 12/16, overnight nurse reported 1.5L of dark gastric suction, gastric occult test positive. Patient tolerating NG tube, now on intermittent suction due to abdomen distention, stopped GoLYTELY prep. KUB on 12/[address] A/P on 12/[address] A/P on 12/16 shows Bibasilar pneumonia with large right pleural effusion, small bowel obstruction pattern, significant prostatomegaly. Plan: * Ex-lap with gen surg for SBO on 12/16/24 * Monitor abdominal exam, distension, and output * Keep NPO #Acute respiratory failure ? likely HAP/aspiration pneumonia - resolved Previously admitted for recurrent pneumonia with sepsis and hypoxia. Now off Zosyn and Doxy. Cultures negative (blood, sputum, MRSA). O2 sat stable on room air CXR shows bilateral perihilar infiltrates. Lactic acid improved Previous CT abdomen shows new right lower lobe pneumonia and moderate right pleural effusion. Treated with Zosyn and Doxy (day 7). Off O2. Afebrile, stable WBC. CT A/P on 12/16 shows Bibasilar pneumonia with large right pleural effusion, small bowel obstruction pattern, significant prostatomegaly. Plan: * Completed antibiotic course on 12/14 * Suction PRN * Continue acetylcysteine and levalbuterol nebulizers * Titrate O2 as needed to maintain SpO2 > 92% * Continue aspiration precautions (HOB >30?) * Discontinue IV fluids since patient is on PPN * Monitor for new signs of infection * Follow up on pt's resp and oxygen status after ex-lap. #Hypernatremia - resolved Sodium has normalized from peak of 154. Plan: * No further sodium correction needed * Continue to monitor BMP * Maintain euvolemia #Hyperkalemia - resolved K peaked at 5.5. Patient was treated with insulin, calcium gluconate, and breathing treatment. Plan: * Monitor BMP qAM * Replete K if <3.5 * Watch for signs of rebound or hypokalemia #Electrolyes imbalance #Hypophosphatemia and hypomagnesemia (resolved) Electrolytes within normal currently Plan: * Monitor daily CMP, Mag and Phos * Replete PRN #Anemia ? normocytic, stable Hgb stable at 10.6, no overt signs of bleeding Plan: * Monitor serial CBCs * Monitor hemodynamic status * No transfusion at this time #History of PE on Eliquis Anticoagulation held due to GI issues and SBO management Plan: * Continue to Hold Eliquis * Monitor Hgb and signs of bleeding or thrombosis * On SCD's #CVA with PEG, aphasia, hemiplegia Chronic deficits, now more alert and intermittently verbal, responsive to questions Plan: * Maintain aspiration precautions * Reposition regularly * Continue to hold PO/GT meds for now #Chronic comorbidities ? HTN, HLD, GERD, cocci Stable, no acute concerns Plan: * Continue atorvastatin, Protonix IV, hold other GT meds as appropriate Health Maintenance Disposition: Tele Diet: NPO DVT prophylaxis: Aspirin 81mg GI prophylaxis: Protonix 40mg IV Huynh: Present Lines: PIV PEG: In, Suction stopped NG tube: In place, Suction Intermittent O2: Room air Code Status: DNR Case discussed with my senior resident Dr. Aguayo Case discussed with my attending Dr. Ab Jalloh, DO PGY 1
[2024-12-16] MEDS: POT PHOS 15 mMol in NS 250 ML 15 MMOL/250 ML BAG 62.5 MMOL IV ×2 (08:41→13:59)
[2024-12-16] MEDS: Magnesium Sulfate 4 GM Ivpb 4 GM/50 ML BAG IV (08:41)
[2024-12-16] MEDS: METOCLOPRAMIDE INJ 5 MG/ML VIAL 2 ML IVP ×2 (08:42→20:54)
--- NOTE | 2024-12-16 09:46 | XR_ITS ---
Examination: Abdomen AP single view Technique: AP portable supine abdomen, single view Exam date and time: December 16, 2024 1022 hrs. Indications: Abdominal pain and distention this week, comparison December 14, 2024 Findings: Prominently air distended small bowel loops No free air Significant stool in the right colon Impression: Small bowel obstruction pattern
[2024-12-16] MEDS: MULTIVITAMIN IV (10:53)
[2024-12-16] MEDS: [UNRECOGNIZED DRUG - OTHER] IV (10:53)
[2024-12-16] MEDS: MAGNESIUM SULF IV (10:53)
--- NOTE | 2024-12-16 12:05 | XR_ITS ---
Examination: CT abdomen with intravenous contrast CT pelvis with intravenous contrast 2-D coronal reconstructions 2-D sagittal reconstructions Date and time of exam:December 16, 2024, 1310 hrs., Comparison December 11, 2024 Indications: Generalized abdominal pain beginning 5 days ago, small bowel obstruction pattern on CT abdomen pelvis December 11, 2024. CTDI: vol (mGy) 8.29 DLP: (mGycm) 534. Technique: Multiple axial sections of the abdomen and pelvis have been obtained. 64 slice high-resolution scanner used. 3 mm axial sections have been obtained, post intravenous injection 60 cc [id number] 2-D sagittal, coronal reconstructions obtained. Low dose protocols were performed. One or more of the following dose reduction techniques were used; automated exposure control, adjustment of the mA and/or KV according to patient size, use of iterative reconstruction technique. Findings: Pneumonia at the lung bases with large right and mild left pleural effusion Mild enlargement cardiac contour with pericardial effusion measuring up to 8 mm No visualized liver or splenic lesion Orogastric tube in the stomach. No pancreatic mass No pericecal inflammatory change No hydronephrosis Multiple significantly fluid distended small bowel loops Prostatomegaly 6.7 cm Urinary Huynh catheter within contracted urinary bladder Severe osteopenia Impression: Bibasilar pneumonia with large right pleural effusion Small bowel obstruction pattern Significant prostatomegaly
[2024-12-16 13:22] LABS: Alanine Aminotransferase 10 U/L (10-49); Albumin, Serum 2.5 gm/dL (3.4-4.8); Albumin/Globulin Ratio 0.9 (1.2-2.2); Alkaline Phosphatase 47 U/L (46-116); Anion Gap 9 (7-16); Aspartate Amino Transferase 25 U/L (0-34); BUN/Creatinine Ratio 25 Ratio (12-20); Bilirubin,Total 0.4 mg/dL (0.3-1.2); Blood Urea Nitrogen 10 mg/dL (9-23); Calcium 8.0 mg/dL (8.3-10.6); Calcium (Corrected) 9.2 mg/dL (8.5-10.1); Carbon Dioxide 20.4 mMol/L (20.0-31.0); Chloride 109 mMol/L (98-107); Creatinine (Component) 0.4 mg/dL (0.6-1.3); Estimated Creatinine Clearance 151.7 mL/min (>60); Globulin 2.8 gm/dL (2.3-3.5); Glucose 135 mg/dL (74-106); Magnesium 2.1 mg/dL (1.6-2.6); Osmolality,Calculated 276 (275-295); Phosphorous 3.7 mg/dL (2.4-5.1); Potassium 4.0 mMol/L (3.4-5.1); Sodium 138 mMol/L (136-145); Total Protein 5.3 gm/dL (5.7-8.2); eGFR > 60 See Note
--- NOTE | 2024-12-16 14:13 | PD.SURPROG ---
Documentation for date of: 12/16/24 Subjective Subjective Brief History: 79M with HTN, HLD, hx of CVA leading to R sided weakness, aphasia and dysphagia s/p PEG, PE on eliquis and recurrent pneumonia who was admitted 12/08 from [facility] for shortness of breath, being treated for recurrent pneumonia. On admission pt underwent AXR read as SBO but has been having BMs, yesterday underwent attempted small bowel series but he vomited after receiving gastrografin. Pt did have an NG in place last night but he removed it and on my exam RN was in the process of replacing it. She reported he had a large BM today and has not had any vomiting PMH: HTN, HLD, PE, GERD, CVA PSHx: PEG Meds: includes eliquis Narrative: Yesterday pt was started on golytely prep for colonoscopy as his small bowel series was negative on 12/14, however overnight he had vomiting and since then has had approx 2L NG output with KUB today showing dilated small bowel loops >5cm. Remaining hemodynamically normal, electrolytes replaced Exam Vital Signs Temp Pulse Resp BP Pulse Ox O2 Del Method O2 Flow Rate 97.4 F 84 20 133/74 H 100 Room Air 2 12/16/24 11:50 12/16/24 12:23 12/16/24 12:23 12/16/24 11:50 12/16/24 12:23 12/16/24 11:50 12/16/24 00:00 Constitutional Constitutional: no acute distress Routine Respiratory Exam Respiratory: Present no resp distress Routine Abdominal Exam Abdominal: Present soft and distended; Absent tenderness, rebound or guarding Results Results: Laboratory Laboratory results: results reviewed Assessment & Plan Plan 79M with HTN, HLD, hx of CVA leading to R sided weakness, aphasia and dysphagia s/p PEG, PE on eliquis and recurrent pneumonia who was admitted 12/08 from [facility] for shortness of breath, being treated for recurrent pneumonia, with radiographic findings of SBO. Clinically pt had not had any vomiting since Sun 12/09 and was having multiple BMs daily without any obvious pain, however he is now showing signs of obstruction warranting surgical exploration. I called his with a phone rural carrier associate and she is on her way to discuss surgery in person but in the meantime granted permission to start prepping OR. Before she signs consent I will enumerate risks of bleeding, infection, injury to nearby structures, postoperative ileus and hernia as well as the possibility he will need a diverting ostomy. OR today for exploratory laparotomy, possible bowel resection, possible ostomy
--- NOTE | 2024-12-16 17:30 | ESOP_ITS ---
Date of Procedure 12/16/24 Pre Op Diagnosis Persistent small bowel obstruction with no history of abdominal surgery Post Op Diagnosis Portion of necrotic small bowel Procedure Exploratory laparotomy, small bowel resection, ileal ileal anastomosis Findings Portion of necrotic small bowel at the distal ileum adherent to the right upper abdominal wall with proximal distention and distal decompression Procedure Description Before surgery I spoke to patient's using a certified benefits sales consultant and explained the benefits/risks of surgery including bleeding, infection, injury to nearby structures, the potential need for an ostomy as well as . She expressed understanding and also agreed to reverse patient's DNR status so that he will be full code for 24 hours perioperatively. Patient was brought to the operating room, SCDs were activated and general anesthesia was induced. He received preoperative antibiotics and was prepped and draped in usual sterile fashion. After timeout a midline incision was made with a #10 blade and the tissues were dissected with electrocautery. When the peritoneum was reached there was serous fluid and the small bowel was eviscerated. Running the dilated small bowel, I found a portion of it that was adherent to the right upper abdominal wall, with some necrotic exudate that was clearly the point of obstruction as all of the bowel proximal to it was dilated in all the bowel distal to it was decompressed. This portion of the bowel was about 40 cm from the terminal ileum. The entire abdomen was examined and the liver was smooth, and there were no palpable lesions in the right side of the colon. The obstructing portion of the small bowel was excised using the CHINMAY 75 on both the proximal and distal aspects and the mesentery was transected with the Enseal device. A [id number] functional end-to-end ileal ileal anastomosis was created using 2 sequential fires of the 60 mm [place] stapler with blue loads. The common enterotomy was closed with 2 additional fires of the 60 mm [place] and the anastomosis was oversewed with a running and locking 3-0 Vicryl suture. I also performed 2 crotch stitches with interrupted 3-0 Vicryl sutures. The small bowel was returned to the abdomen and it was irrigated with saline. A tap block was performed with 30 cc of half percent Marcaine and the fascia was closed with #1 PDS. The incision was irrigated and the skin was closed with skin michelle. Patient was extubated and brought to PACU in stable condition Pathology / specimen Other (Portion of necrotic small bowel) Estimated Blood Loss 100 Surgeon Elizabeth Blandon MD Surgical Staff Operation Date: 12/16/24 15:15 Case Staff EXECUTIVE ASSOCIATE: Idris Gonzales Jr, RN First Assistant: Papito Olivarez
--- NOTE | 2024-12-16 17:37 | SUR.PHASEI ---
pt arrived to PACU via gurney drowsy but responds to voice, breathing unlabored, dressing to abdomen clean, dry, and intact, report from Kashif PAGAN and Idris CARPIO
--- NOTE | 2024-12-16 18:10 | SUR.PHASEI ---
pt awakens to voice, breathing unlabored, dressing to abdomen clean, dry, and intact, report given to Rina PAGAN, pt transferred to room at this time.
--- NOTE | 2024-12-16 19:16 | ESPR_ITS ---
Documentation for date of: 12/16/24 Subjective Subjective Interval history: Patient's status post exploratory laparotomy with necrotic ileum requiring resection and ileal ileal anastomosis Exam Vital Signs Temp Pulse Resp BP Pulse Ox O2 Del Method O2 Flow Rate 98.9 F 68 14 115/72 97 Room Air 3 12/16/24 18:48 12/16/24 18:48 12/16/24 18:48 12/16/24 18:48 12/16/24 18:48 12/16/24 18:48 12/16/24 17:52 Objective Labs 12/16/24 04:42 12/16/24 12:43 Labs: Laboratory Results - last 24 hr 12/16/24 12/16/24 12/16/24 04:42 05:50 12:43 WBC 9.3 RBC 3.36 L Hgb 10.6 L Hct 30.2 L MCV 90 MCH 31.5 MCHC 35.1 RDW Std Deviation 46.6 H Plt Count 389 D Neut % (Auto) 82 H Lymph % (Auto) 10 [place] % (Auto) 5 Eos % (Auto) 0 Baso % (Auto) 0 Neut # (Auto) 7.6 Lymph # (Auto) 0.9 L [place] # (Auto) 0.5 Eos # (Auto) 0.0 Baso # (Auto) 0.0 Immature Gran # (Auto) 0.33 H Absolute Nucleated RBC 0.00 Immature Gran % 4 H Nucleated RBC % 0 PT 11.6 INR 1.1 APTT 28.9 Sodium 140 138 Potassium 3.3 L 4.0 D Chloride 108 H 109 H Carbon Dioxide 22.7 20.4 Anion Gap 9 9 BUN 12 10 Creatinine 0.5 L 0.4 L Estim Creat Clear Calc 121.4 151.7 eGFR > 60 > 60 BUN/Creatinine Ratio 24 H 25 H Glucose 157 H D 135 H Calculated Osmolality 282 276 Calcium 8.4 8.0 L Corrected Calcium 9.5 9.2 Phosphorus 1.5 L 3.7 Magnesium 1.5 L 2.1 Total Bilirubin 0.3 0.4 AST 25 25 ALT 12 10 Alkaline Phosphatase 49 D 47 Total Protein 5.5 L 5.3 L Albumin 2.6 L 2.5 L Globulin 2.9 2.8 Albumin/Globulin Ratio 0.9 L 0.9 L Gastric Occult Blood Positive A Impressions Impression: Small bowel obstruction Ileal ileal anastomosis after small bowel resection in the setting of necrotic small bowel Continue postoperative care ABG Interpretation ABG results: 12/07/24 12/08/24 20:42 07:22 ABG pH 7.44 7.44 ABG pCO2 31 L 33 ABG pO2 68 L 88 D ABG HCO3 21 22 ABG O2 Saturation 95 98 ABG Base Excess -3 -1 Assessment & Plan A&P Narrative 79-year-old male with past medical history of cerebrovascular accident with residual right-sided weakness, aphasia, and dysphagia status post PEG tube placement, pulmonary embolism on Eliquis, GERD, hypertension, hyperlipidemia, and recurrent pneumonia admitted for septic shock likely due to hospital- acquired pneumonia/aspiration pneumonia. #Small Bowel Obstruction Abdominal X-rays and CT abdomen/pelvis showed persistent high-grade small bowel obstruction. NG tube remains unplaced. A 12 [place] NG tube was recommended by Dr. Gutierrez. According to nursing staff, an attempt was made; however, the patient poorly tolerated the procedure, developing coughing and oxygen desaturation during the attempt. Resistance was encountered at 45 cm. Plan - Initiate PPN due to continued NPO status and inability to tolerate NG placement - Change PEG tube drainage method to intermittent suction - Start Metoclopramide 5mg Q12HR - Continue close monitoring for signs of clinical deterioration (increased pain, tachycardia, leukocytosis) - Continue IV fluids to maintain hydration and electrolyte balance - Monitor I/Os, abdominal girth Patient plan of care was discussed with attending physician, Dr. Gutierrez. Cliff Riggs DO PGY-1 Attending attestation patient examined with internal medicine team X-rays reviewed imaging studies reviewed laboratory data reviewed Recommendations are Placement of an NGT with patient with soft restraints to intermittent suction Repeat abdominal x-ray in the morning Agree with PPN Will follow the patient closely There is a lot of stool burden on the left side of the colon Once the ileus/small bowel obstruction resolves We will give the GoLytely to clean the colon out No invasive GI workup planned at the moment Thank you for the opportunity to participate in the care of this patient Time Spent With Patient Time: Total time spent is greater than 50% in coordination of care (as documented) at patient's floor/unit and/or counseling patient:
[2024-12-16] MEDS: ATORVASTATIN CALCIUM 20 MG TABLET 40 MG GT (20:53)
[2024-12-16] MEDS: D5W IV (23:28)
[2024-12-16] MEDS: SOD PHOS ADDITIVE IV (23:28)
[2024-12-16] MEDS: AMINO ACIDS IV (23:28)
[2024-12-17] VITALS (12 sets, daily range): BP systolic 103–146; BP diastolic 60–72; PULSE 73–97; RESP 13–96; TEMP 36.1–36.3; O2SAT 92–100; BMI 28.5
[2024-12-17] MEDS: LEVALBUTEROL RT 1.25 MG/0.5 ML NEBU INH ×4 (01:02→19:57)
[2024-12-17] MEDS: ACETYLCYSTEINE RT SOL 10% 4 ML NEBU INH ×2 (01:02→06:45)
[2024-12-17] MEDS: SODIUM CHLORIDE RT SOL 0.9% 3 ML NEBU INH ×2 (01:02→13:38)
[2024-12-17 06:15] LABS: Basophils # (Auto) 0.0 Thou/mm3 (0.0-0.2); Basophils % (Auto) 0 % (0-2.5); Eosinophils # (Auto) 0.1 Thou/mm3 (0.0-0.5); Eosinophils % (Auto) 1 % (0-10); Hematocrit 27.8 % (41.0-53.0); Hemoglobin 9.7 g/dL (13.5-16.0); INR 1.1 (0.9-1.3); Immature Granulocytes Auto 0.18 Thou/mm3 (0.00-0.00); Lymphocytes # (Auto) 1.1 Thou/mm3 (1.0-4.8); Lymphocytes % (Auto) 14 % (10-50); Mean Corpuscular HGB Conc 34.9 g/dl (31.0-37.0); Mean Corpuscular Hemoglobin 31.3 pg (25.0-35.0); Mean Corpuscular Volume 90 fL (80-100); Monocytes # (Auto) 0.6 Thou/mm3 (0.0-0.8); Monocytes % (Auto) 8 % (0-12); Neutrophils # (Auto) 5.8 Thou/mm3 (1.8-7.7); Neutrophils % (Auto) 75 % (37-80); Nucleated Red Blood Cell # 0.00 Thou/mm3 (0.00-0.00); Nucleated Red Blood Cell % 0 /100 WBC (0); Partial Thromboplastin Time 31.1 Seconds (22.0-36.0); Platelet Count 436 Thou/mm3 (140-440); Prothrombin Time 11.6 Seconds (9.0-12.2); RDW Standard Deviation 47.5 fL (35.1-43.9); Red Blood Count 3.10 Miln/mm3 (4.50-5.90); White Blood Count 7.7 Thou/mm3 (3.8-10.6)
[2024-12-17 06:46] LABS: Alanine Aminotransferase 10 U/L (10-49); Albumin, Serum 2.2 gm/dL (3.4-4.8); Albumin/Globulin Ratio 0.9 (1.2-2.2); Alkaline Phosphatase 41 U/L (46-116); Anion Gap 9 (7-16); Aspartate Amino Transferase 20 U/L (0-34); BUN/Creatinine Ratio 34 Ratio (12-20); Bilirubin,Total 0.4 mg/dL (0.3-1.2); Blood Urea Nitrogen 17 mg/dL (9-23); Calcium 7.5 mg/dL (8.3-10.6); Calcium (Corrected) 8.9 mg/dL (8.5-10.1); Carbon Dioxide 22.0 mMol/L (20.0-31.0); Chloride 107 mMol/L (98-107); Creatinine (Component) 0.5 mg/dL (0.6-1.3); Estimated Creatinine Clearance 121.4 mL/min (>60); Globulin 2.5 gm/dL (2.3-3.5); Glucose 124 mg/dL (74-106); Magnesium 1.9 mg/dL (1.6-2.6); Osmolality,Calculated 278 (275-295); Phosphorous 3.0 mg/dL (2.4-5.1); Potassium 3.4 mMol/L (3.4-5.1); Sodium 138 mMol/L (136-145); Total Protein 4.7 gm/dL (5.7-8.2); eGFR > 60 See Note
[2024-12-17] MEDS: METOCLOPRAMIDE INJ 5 MG/ML VIAL 2 ML IVP ×2 (08:13→20:29)
[2024-12-17] MEDS: ASPIRIN 81 MG CHEW GT (09:44)
[2024-12-17] MEDS: FAMOTIDINE 20 MG TABLET GT (09:44)
[2024-12-17] MEDS: FENOFIBRATE 145 MG TABLET (NON-FORMULARY) GT (09:44)
[2024-12-17] MEDS: DOXAZOSIN MESYLATE 1 MG TABLET GT (09:45)
--- NOTE | 2024-12-17 11:48 | XR_ITS ---
Examination: Duplex scan of the upper extremity, unilateral right Date and time of exam: December 09, 2024, 1246 hours INDICATIONS: Onset right arm swelling today Technique: Duplex scan of the extremity veins using B-mode/grayscale imaging and Doppler spectral analysis and color flow Attention is directed to internal echogenicity, compression and augmentation involving these veins, color flow assessment, spectral analysis Findings: Major deep venous structures in the extremity demonstrate normal course and caliber. There is no evidence of deep vein thrombosis. Normal color flow and spectral analysis Impression: Negative for DVT..
[2024-12-17] MEDS: AMINO ACID 4.25%/D5W E 2,000 ML 80 ML IV (11:55)
--- NOTE | 2024-12-17 15:14 | ESPR_ITS ---
<Statement entered by Piedad Berger MD - 12/22/24 12:37> I reviewed above note and agree with findings and plans. I have also personally examined the patient with medicine team and went over assessment and plan with medical team including social media intern and resident physician. <Statement entered by Jcarlos Aguayo MD - 12/17/24 20:29> Patient seen and examined at bedside. I discussed and supervised with the social media intern physician who took care of this patient. I personally saw and examined the patient. I agree with most of the assessment and plan. Plan of care discussed with attending Dr. Ab Aguayo MD PGY-2 Documentation for date of: 12/17/24 Subjective Subjective Interval history: Patient is alert and more verbal this morning, answering questions appropriately. Still endorses mild lower abdominal pain, expected post-op. Denies nausea or vomiting. Has not had a bowel movement since surgery, will recheck with RN before sign-out. Right upper extremity noted to be swollen; Doppler ultrasound ordered and was negative for DVT. No new respiratory complaints. No overnight events. NG tube was removed, and trickle PEG feeds started per surgery. PPN still running. Exam Vital Signs Temp Pulse Resp BP Pulse Ox O2 Del Method O2 Flow Rate 97.3 F 80 20 109/63 96 Room Air 2 12/17/24 12:00 12/17/24 13:40 12/17/24 13:40 12/17/24 12:00 12/17/24 13:40 12/17/24 12:00 12/17/24 06:49 Narrative Exam General: Alert, in no acute distress, more interactive and verbal today HEENT: Mucous membranes moist, normocephalic, atraumatic CV: RRR, no murmurs, peripheral pulses palpable Pulm: Breath sounds diminished bilaterally, no increased work of breathing, saturating well on room air Abdomen: Soft, mildly distended, tender in lower quadrants, PEG in place, no guarding or rebound Neuro: A&O x1, chronic right hemiplegia and facial droop, following simple commands Skin: Intact, no rashes or pressure ulcers Extremities: No cyanosis or clubbing; right upper extremity with mild non- pitting edema, warm to touch, Doppler negative for DVT Objective Labs 12/17/24 04:30 12/17/24 04:30 Labs: Laboratory Results - last 24 hr 12/17/24 04:30 WBC 7.7 RBC 3.10 L Hgb 9.7 L Hct 27.8 L MCV 90 MCH 31.3 MCHC 34.9 RDW Std Deviation 47.5 H Plt Count 436 D Neut % (Auto) 75 Lymph % (Auto) 14 [place] % (Auto) 8 Eos % (Auto) 1 Baso % (Auto) 0 Neut # (Auto) 5.8 Lymph # (Auto) 1.1 [place] # (Auto) 0.6 Eos # (Auto) 0.1 Baso # (Auto) 0.0 Immature Gran # (Auto) 0.18 H Absolute Nucleated RBC 0.00 Immature Gran % 2 H Nucleated RBC % 0 PT 11.6 INR 1.1 APTT 31.1 Sodium 138 Potassium 3.4 D Chloride 107 Carbon Dioxide 22.0 Anion Gap 9 BUN 17 Creatinine 0.5 L Estim Creat Clear Calc 121.4 eGFR > 60 BUN/Creatinine Ratio 34 H Glucose 124 H Calculated Osmolality 278 Calcium 7.5 L Corrected Calcium 8.9 Phosphorus 3.0 Magnesium 1.9 Total Bilirubin 0.4 AST 20 ALT 10 Alkaline Phosphatase 41 L Total Protein 4.7 L Albumin 2.2 L Globulin 2.5 Albumin/Globulin Ratio 0.9 L ABG Interpretation ABG results: 12/07/24 12/08/24 20:42 07:22 ABG pH 7.44 7.44 ABG pCO2 31 L 33 ABG pO2 68 L 88 D ABG HCO3 21 22 ABG O2 Saturation 95 98 ABG Base Excess -3 -1 Quality Measures Quality Measures VTE prophylaxis Advance care planning discussed with:: patient Assessment & Plan Assessment Current Active Medications: Generic Name Dose Route Start Last Admin Trade Name Freq PRN Reason Stop Dose Admin Acetaminophen 650 mg 12/07/24 22:27 12/15/24 18:01 Acetaminophen Gisele 325 Mg/10 Ml Udc GT 01/06/25 22:26 650 mg Q4HR PRN Administration Pain Or Fever > 100 Protocol Apixaban 5 mg 12/10/24 09:45 12/10/24 10:53 Apixaban 2.5 Mg Tablet GT 01/09/25 09:44 Not Given BID RE Aspirin 81 mg 12/08/24 09:00 12/17/24 09:44 Aspirin 81 Mg Chew GT 01/07/25 08:59 81 mg QDAY RE Administration Atorvastatin Calcium 40 mg 12/08/24 21:00 12/16/24 20:53 Atorvastatin Calcium 20 Mg Tablet GT 01/07/25 20:59 40 mg HS RE Administration Bisacodyl 10 mg 12/08/24 14:05 Bisacodyl 10 Mg Supp [place] 01/07/25 14:04 QDAY PRN CONSTIPATION Protocol Dextrose 25 ml 12/15/24 10:03 Dextrose 50%-Water Inj 50 Ml Syringe IV 01/14/25 10:02 Q15MIN PRN BG 50-70 responsive npo pt Dextrose 50 ml 12/15/24 10:03 Dextrose 50%-Water Inj 50 Ml Syringe IV 01/14/25 10:02 Q15MIN PRN BG <50 OR BG <70 & pt unresponsive Doxazosin Mesylate 1 mg 12/08/24 09:00 12/17/24 09:45 Doxazosin Mesylate 1 Mg Tablet GT 01/07/25 08:59 1 mg QDAY RE Administration Famotidine 20 mg 12/08/24 09:00 12/17/24 09:44 Famotidine 20 Mg Tablet GT 01/07/25 08:59 20 mg QDAY RE Administration Fenofibrate 145 mg 12/08/24 09:00 12/17/24 09:44 Fenofibrate 145 Mg Tablet (Non-Formulary) GT 01/07/25 08:59 145 mg QDAY RE Administration Glucagon 1 mg 12/15/24 10:03 Glucagon Inj 1 Mg Vial IM Q15MIN PRN BG <70, and no IV access Hydromorphone HCl 0.5 mg 12/13/24 09:52 Hydromorphone Inj 2 Mg/Ml Vial IVP 12/18/24 09:51 Q4HR PRN PAIN 7-10 Fat Emulsion Intravenous 500 mls @ 32 mls/hr 12/13/24 18:00 12/16/24 19:30 Intralipid 20% Iv IV 01/12/25 17:59 Infused TUTHSA@1800 RE Infusion Amino Acids/Electrolytes/Dextrose 2,000 mls @ 80 mls/hr 12/17/24 12:00 12/17/24 11:55 Clinimix E 4.25/5 IV 12/18/24 12:59 80 mls/hr X1 ONE Administration Insulin Human Lispro 0 unit 12/15/24 12:00 12/17/24 05:07 Insulin Lispro (Admelog) 1 Unit/0.01 Ml Unit SC 01/14/25 11:59 Not Given Q6HR RE Protocol Levalbuterol HCl 1.25 mg 12/08/24 01:00 12/17/24 13:38 Levalbuterol Rt 1.25 Mg/0.5 Ml Nebu INH 01/07/25 00:59 1.25 mg Q6HRRT RE Administration Metoclopramide HCl 5 mg 12/12/24 21:00 12/17/24 08:13 Metoclopramide Inj 5 Mg/Ml Vial 2 Ml IVP 01/11/25 20:59 5 mg Q12HR RE Administration Protocol Ondansetron HCl 4 mg 12/07/24 22:12 12/11/24 01:09 Ondansetron Inj 2 Mg/Ml Inj 2 Ml IVP 01/06/25 22:11 4 mg Q6H PRN Administration NAUSEA OR VOMITING Protocol Oxcarbazepine 300 mg 12/08/24 09:00 12/17/24 09:45 Oxcarbazepine 150 Mg Tablet GT 01/07/25 08:59 300 mg BID RE Administration Pantoprazole Sodium 40 mg 12/10/24 10:30 12/17/24 08:12 Pantoprazole Inj 40 Mg Vial IVP 01/09/25 10:29 40 mg QDAY RE Administration Sennosides 8.8 mg 12/08/24 08:13 Sennosides Syrup 8.8 Mg/5 Ml Udc GT 01/07/25 08:06 QDAY PRN CONSTIPATION Protocol Sodium Chloride 3 ml 12/07/24 22:12 12/17/24 13:38 Sodium Chloride Rt Gisele 0.9% 3 Ml Nebu INH 01/06/25 22:11 3 ml PRN PRN Administration SOLN Plan 79M with history of CVA with PEG, recurrent pneumonia, and recent septic shock due to HAP, now s/p exploratory laparotomy with resection of necrotic ileum and ileal-ileal anastomosis for SBO, improving post-op, now off NG with trickle tube feeds initiated and anticoagulation resumed. #Small Bowel Obstruction, s/p exploratory laparotomy with necrotic ileum resection and ileal-ileal anastomosis Post-op day #1. NG tube removed and trickle PEG feeds started. No nausea, vomiting, or distension. Abdominal pain mild. No bowel movement yet post-op. Plan: * Continue trickle PEG feeds as per surgery * Monitor for return of bowel function (BM, flatus) * Assess abdominal exam daily * Pain control with PRN Dilaudid * Monitor for signs of ileus or obstruction #Postoperative Monitoring Plan: * Continue routine post-op monitoring * Encourage mobility and pulmonary hygiene * Follow I/Os and abdominal exam #Right Upper Extremity Swelling (DVT ruled out) Worsening RUE edema --> venous Doppler negative for DVT Plan: * Monitor swelling * Elevate limb * Reassess for any signs of cellulitis or other causes #Abdominal Pain (Post op) Expected mild post-op discomfort Plan: * Continue PRN Dilaudid 0.5 mg IV q4h * Monitor response and reassess daily #Respiratory Status (stable) Room air, no new findings Plan: * Continue nebulizers PRN * Monitor for signs of decompensation #Hypernatremia (resolved) Na stable at 138 Plan: * Monitor #Hyperkalemia (resolved) K normalized after treatment Plan: * Daily BMP * Replete PRN #Anemia (normocytic, stable) Hgb stable at 9.7 Plan: * Monitor CBC * No transfusion #History of PE Eliquis resumed post-op today Plan: * Continue Eliquis * Monitor Hgb, signs of bleeding #CVA with PEG, aphasia, hemiplegia Mentation improved Plan: * Maintain aspiration precautions * Reposition Q2H * Resume medications via PEG as appropriate #Chronic Conditions ? HTN, HLD, GERD, cocci Stable Plan: * Continue atorvastatin, Protonix IV * Hold non-essential meds Health Maintenance Disposition: Tele Diet: PEG trickle feeds (advance as tolerated) DVT prophylaxis: Eliquis resumed GI prophylaxis: Protonix 40 mg IV [place]: Present Lines: PIV PEG: In place, feeding NG: Removed O2: Room air Code Status: DNR ----- Plan discussed with attending physician Dr. Berger and senior resident Dr. Luis Antonio MD PGY-1 Internal Medicine
--- NOTE | 2024-12-17 17:13 | PD.SURPROG ---
Documentation for date of: 12/17/24 Subjective Subjective Brief History: 79M with HTN, HLD, hx of CVA leading to R sided weakness, aphasia and dysphagia s/p PEG, PE on eliquis and recurrent pneumonia who was admitted 12/08 from [facility] for shortness of breath, being treated for recurrent pneumonia. On admission pt underwent AXR read as SBO but has been having BMs, yesterday underwent attempted small bowel series but he vomited after receiving gastrografin. Pt did have an NG in place last night but he removed it and on my exam RN was in the process of replacing it. She reported he had a large BM today and has not had any vomiting PMH: HTN, HLD, PE, GERD, CVA PSHx: PEG Meds: includes eliquis Narrative: Patient had 200 cc of output from the NG after surgery, NG was removed and he started on trickle tube feeds, tolerating with no vomiting. He has not had a bowel movement as of yet today Exam Vital Signs Temp Pulse Resp BP Pulse Ox O2 Del Method O2 Flow Rate 97.3 F 80 20 109/63 96 Room Air 2 12/17/24 12:00 12/17/24 13:40 12/17/24 13:40 12/17/24 12:00 12/17/24 13:40 12/17/24 12:00 12/17/24 06:49 Constitutional Constitutional: no acute distress Routine Respiratory Exam Respiratory: Present no resp distress Routine Abdominal Exam Abdominal: Present soft and wound (Midline dressing clean dry intact); Absent tenderness or distended Results Results: Laboratory Laboratory results: results reviewed Assessment & Plan Plan 79M with HTN, HLD, hx of CVA leading to R sided weakness, aphasia and dysphagia s/p PEG, PE on eliquis and recurrent pneumonia who was admitted 12/08 from [facility] for shortness of breath, being treated for recurrent pneumonia, with radiographic findings of SBO refractory to conservative management, now status post laparotomy, small bowel resection and ileal ileal anastomosis 12/16, recovering gradually Continue tube feeds at trickle rate, do not advance until BM Will follow closely PROCEDURES: Procedures Exploratory laparotomy, small bowel resection, ileal ileal anastomosis
--- NOTE | 2024-12-17 20:08 | PD.IMPROG ---
Documentation for date of: 12/17/24 Subjective Subjective Interval history: Status post small bowel resection and ileal ileal anastomosis No bowel movement yet Exam Vital Signs Temp Pulse Resp BP Pulse Ox O2 Del Method O2 Flow Rate 97.0 F 90 20 146/65 H 100 Room Air 2 12/17/24 16:00 12/17/24 20:03 12/17/24 20:03 12/17/24 16:00 12/17/24 20:03 12/17/24 16:00 12/17/24 06:49 Objective Labs 12/17/24 04:30 12/17/24 04:30 Labs: Laboratory Results - last 24 hr 12/17/24 04:30 WBC 7.7 RBC 3.10 L Hgb 9.7 L Hct 27.8 L MCV 90 MCH 31.3 MCHC 34.9 RDW Std Deviation 47.5 H Plt Count 436 D Neut % (Auto) 75 Lymph % (Auto) 14 [place] % (Auto) 8 Eos % (Auto) 1 Baso % (Auto) 0 Neut # (Auto) 5.8 Lymph # (Auto) 1.1 [place] # (Auto) 0.6 Eos # (Auto) 0.1 Baso # (Auto) 0.0 Immature Gran # (Auto) 0.18 H Absolute Nucleated RBC 0.00 Immature Gran % 2 H Nucleated RBC % 0 PT 11.6 INR 1.1 APTT 31.1 Sodium 138 Potassium 3.4 D Chloride 107 Carbon Dioxide 22.0 Anion Gap 9 BUN 17 Creatinine 0.5 L Estim Creat Clear Calc 121.4 eGFR > 60 BUN/Creatinine Ratio 34 H Glucose 124 H Calculated Osmolality 278 Calcium 7.5 L Corrected Calcium 8.9 Phosphorus 3.0 Magnesium 1.9 Total Bilirubin 0.4 AST 20 ALT 10 Alkaline Phosphatase 41 L Total Protein 4.7 L Albumin 2.2 L Globulin 2.5 Albumin/Globulin Ratio 0.9 L Impressions Impression: Small bowel obstruction requiring exploratory laparotomy small bowel resection and ileal ileal anastomosis Continue current management ABG Interpretation ABG results: 12/07/24 12/08/24 20:42 07:22 ABG pH 7.44 7.44 ABG pCO2 31 L 33 ABG pO2 68 L 88 D ABG HCO3 21 22 ABG O2 Saturation 95 98 ABG Base Excess -3 -1 Assessment & Plan A&P Narrative 79-year-old male with past medical history of cerebrovascular accident with residual right-sided weakness, aphasia, and dysphagia status post PEG tube placement, pulmonary embolism on Eliquis, GERD, hypertension, hyperlipidemia, and recurrent pneumonia admitted for septic shock likely due to hospital-acquired pneumonia/aspiration pneumonia. #Small Bowel Obstruction Abdominal X-rays and CT abdomen/pelvis showed persistent high-grade small bowel obstruction. NG tube remains unplaced. A 12 Malay NG tube was recommended by Dr. Gutierrez. According to nursing staff, an attempt was made; however, the patient poorly tolerated the procedure, developing coughing and oxygen desaturation during the attempt. Resistance was encountered at 45 cm. Plan - Initiate PPN due to continued NPO status and inability to tolerate NG placement - Change PEG tube drainage method to intermittent suction - Start Metoclopramide 5mg Q12HR - Continue close monitoring for signs of clinical deterioration (increased pain, tachycardia, leukocytosis) - Continue IV fluids to maintain hydration and electrolyte balance - Monitor I/Os, abdominal girth Patient plan of care was discussed with attending physician, Dr. Gutierrez. Cliff Riggs DO PGY-1 Attending attestation patient examined with internal medicine team X-rays reviewed imaging studies reviewed laboratory data reviewed Recommendations are Placement of an NGT with patient with soft restraints to intermittent suction Repeat abdominal x-ray in the morning Agree with PPN Will follow the patient closely There is a lot of stool burden on the left side of the colon Once the ileus/small bowel obstruction resolves We will give the GoLytely to clean the colon out No invasive GI workup planned at the moment Thank you for the opportunity to participate in the care of this patient Time Spent With Patient Time: Total time spent is greater than 50% in coordination of care (as documented) at patient's floor/unit and/or counseling patient:
[2024-12-17] MEDS: APIXABAN 2.5 MG TABLET 5 MG GT (20:28)
[2024-12-17] MEDS: ATORVASTATIN CALCIUM 20 MG TABLET 40 MG GT (20:28)
[2024-12-17] MEDS: ACETAMINOPHEN SOL 325 MG/10 ML UDC 650 MG GT (20:29)
[2024-12-18] VITALS (13 sets, daily range): BP systolic 119–152; BP diastolic 65–89; PULSE 78–96; RESP 19–95; TEMP 36.1–36.3; O2SAT 95–99
[2024-12-18] MEDS: LEVALBUTEROL RT 1.25 MG/0.5 ML NEBU INH ×4 (00:41→18:27)
[2024-12-18 05:38] LABS: Basophils # (Auto) 0.0 Thou/mm3 (0.0-0.2); Basophils % (Auto) 0 % (0-2.5); Eosinophils # (Auto) 0.1 Thou/mm3 (0.0-0.5); Eosinophils % (Auto) 1 % (0-10); Hematocrit 26.5 % (41.0-53.0); Hemoglobin 9.0 g/dL (13.5-16.0); Immature Granulocytes Auto 0.14 Thou/mm3 (0.00-0.00); Lymphocytes # (Auto) 0.9 Thou/mm3 (1.0-4.8); Lymphocytes % (Auto) 11 % (10-50); Mean Corpuscular HGB Conc 34.0 g/dl (31.0-37.0); Mean Corpuscular Hemoglobin 30.6 pg (25.0-35.0); Mean Corpuscular Volume 90 fL (80-100); Monocytes # (Auto) 0.7 Thou/mm3 (0.0-0.8); Monocytes % (Auto) 8 % (0-12); Neutrophils # (Auto) 6.4 Thou/mm3 (1.8-7.7); Neutrophils % (Auto) 78 % (37-80); Nucleated Red Blood Cell # 0.00 Thou/mm3 (0.00-0.00); Nucleated Red Blood Cell % 0 /100 WBC (0); Platelet Count 392 Thou/mm3 (140-440); RDW Standard Deviation 47.0 fL (35.1-43.9); Red Blood Count 2.94 Miln/mm3 (4.50-5.90); White Blood Count 8.1 Thou/mm3 (3.8-10.6)
[2024-12-18 06:12] LABS: Alanine Aminotransferase 11 U/L (10-49); Albumin, Serum 2.3 gm/dL (3.4-4.8); Albumin/Globulin Ratio 0.9 (1.2-2.2); Alkaline Phosphatase 44 U/L (46-116); Anion Gap 5 (7-16); Aspartate Amino Transferase 19 U/L (0-34); BUN/Creatinine Ratio 30 Ratio (12-20); Bilirubin,Total 0.4 mg/dL (0.3-1.2); Blood Urea Nitrogen 15 mg/dL (9-23); Calcium 8.0 mg/dL (8.3-10.6); Calcium (Corrected) 9.4 mg/dL (8.5-10.1); Carbon Dioxide 23.6 mMol/L (20.0-31.0); Chloride 110 mMol/L (98-107); Creatinine (Component) 0.5 mg/dL (0.6-1.3); Estimated Creatinine Clearance 119.4 mL/min (>60); Globulin 2.6 gm/dL (2.3-3.5); Glucose 131 mg/dL (74-106); Magnesium 1.9 mg/dL (1.6-2.6); Osmolality,Calculated 280 (275-295); Phosphorous 2.2 mg/dL (2.4-5.1); Potassium 3.7 mMol/L (3.4-5.1); Sodium 139 mMol/L (136-145); Total Protein 4.9 gm/dL (5.7-8.2); eGFR > 60 See Note
[2024-12-18] MEDS: SODIUM CHLORIDE RT SOL 0.9% 3 ML NEBU INH ×2 (07:21→13:33)
--- NOTE | 2024-12-18 07:50 | PC.SS ---
Rounding Note: Plan is to advance patient's diet. Plan to d/c once patient is able to tolerate diet advancement.
[2024-12-18] MEDS: POTASSIUM PHOS 22.5 MMOL in SODIUM CHLORIDE 0.9% 500 ML 500 ML 82.778 MMOL IV (07:55)
--- NOTE | 2024-12-18 08:54 | PC.SS ---
Patient is a 79-year old male here for septic shock. Patient is a prison resident from local [facility]. Patient's alternate medical decision maker is daughter, Meme Dey. Dr. Rashid is patient's PCP at the facility. Patient will return to facility upon discharge. Patient will need gurney transport upon discharge back to SNF. D/c plan: Return to [facility] Next of kin: Meme Rosas
--- NOTE | 2024-12-18 09:13 | PC.SS ---
Addendum entered by BG Reagan 12/18/24 14:57: Rounding note: Patient is pending bowel movement since surgery. Feeds were held due to abdominal symptoms. D/c plan is for the patient to return to [facility]. Insurance authorization not required as patient is a [facility]pc resident per [facility] staff. 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 Pippa is requesting an updated PASRR. PASRR was completed and sent via [employer] to [facility]. Addendum entered by BG Reagan 12/18/24 10:42: SS follow up: updated clinicals sent to [facility] via [employer]. Original Note: SS follow up: Contacted Pippa with admissions at [facility] to determine if the patient will require insurance authorization or PASRR before returning back to facility. Per Pippa, she will call back with an update if either will be needed. D/c date for the patient is pending.
[2024-12-18] MEDS: METOCLOPRAMIDE INJ 5 MG/ML VIAL 2 ML IVP ×2 (09:44→20:48)
[2024-12-18] MEDS: FENOFIBRATE 145 MG TABLET (NON-FORMULARY) GT (09:44)
[2024-12-18] MEDS: DOXAZOSIN MESYLATE 1 MG TABLET GT (09:45)
[2024-12-18] MEDS: FAMOTIDINE 20 MG TABLET GT (09:48)
[2024-12-18] MEDS: ASPIRIN 81 MG CHEW GT (09:48)
[2024-12-18] MEDS: APIXABAN 2.5 MG TABLET 5 MG GT ×2 (09:48→20:48)
--- NOTE | 2024-12-18 10:57 | CHAP ---
Patient was visited by a Spiritual Care Volunteer on 12/18/2024 between 0900 and 0958 and received comfort, encouragement and/or prayer.
--- NOTE | 2024-12-18 11:37 | XR_ITS ---
Examination: Abdomen AP single view Technique: AP portable supine abdomen, single view Exam date and time: December 18, 2024 1144 hours Comparison December 16, 2024 INDICATIONS: Status post laparotomy one day ago, abdominal distention FINDINGS: Numerous air distended small bowel loops Gastrostomy tube overlies the stomach Surgical michelle central right abdomen No free air IMPRESSION: Numerous prominent air distended small bowel loops, clinical correlation advised
--- NOTE | 2024-12-18 12:45 | ESPR_ITS ---
Documentation for date of: 12/18/24 Subjective Subjective Brief History: 79M with HTN, HLD, hx of CVA leading to R sided weakness, aphasia and dysphagia s/p PEG, PE on eliquis and recurrent pneumonia who was admitted 12/08 from [facility] for shortness of breath, being treated for recurrent pneumonia. On admission pt underwent AXR read as SBO but has been having BMs, yesterday underwent attempted small bowel series but he vomited after receiving gastrografin. Pt did have an NG in place last night but he removed it and on my exam RN was in the process of replacing it. She reported he had a large BM today and has not had any vomiting PMH: HTN, HLD, PE, GERD, CVA PSHx: PEG Meds: includes eliquis Narrative: Pt indicating he is having abdominal pain today, has not yet had a BM postop and xray showing diffusely dilated small bowel loops, remaining afebrile with no vomiting and WBC normal Exam Vital Signs Temp Pulse Resp BP Pulse Ox O2 Del Method O2 Flow Rate 97.3 F 88 20 135/72 H 95 Room Air 2 12/18/24 11:55 12/18/24 11:55 12/18/24 11:55 12/18/24 11:55 12/18/24 11:55 12/18/24 11:55 12/17/24 06:49 Constitutional Constitutional: no acute distress Routine Respiratory Exam Respiratory: Present no resp distress Routine Abdominal Exam Abdominal: Present soft, tenderness (mild tenderness diffusely), distended (moderate distention) and wound (midline wound with michelle c/d/i, no erythema or drainage) Results Results: Laboratory Laboratory results: results reviewed Results: Imaging Abdominal x-ray: report reviewed and image reviewed Assessment & Plan Plan 79M with HTN, HLD, hx of CVA leading to R sided weakness, aphasia and dysphagia s/p PEG, PE on eliquis and recurrent pneumonia who was admitted 12/08 from [facility] for shortness of breath, being treated for recurrent pneumonia, with radiographic findings of SBO refractory to conservative management, now status post laparotomy, small bowel resection and ileal ileal anastomosis 12/16, with signs of postoperative ileus PEG to drainage If pt develops vomiting please place NG to LIS Continue PPN Avoid narcotics if possible PROCEDURES: Procedures Exploratory laparotomy, small bowel resection, ileal ileal anastomosis
[2024-12-18] MEDS: MAGNESIUM SULF IV (12:50)
[2024-12-18] MEDS: POTASSIUM PHOS IV (12:50)
[2024-12-18] MEDS: [UNRECOGNIZED DRUG - OTHER] IV (12:50)
[2024-12-18] MEDS: POTASSIUM ACET IV (12:50)
--- NOTE | 2024-12-18 13:56 | ESPR_ITS ---
<Statement entered by Piedad Berger MD - 12/22/24 12:38> I reviewed above note and agree with findings and plans. I have also personally examined the patient with medicine team and went over assessment and plan with medical team including administration internship and resident physician. <Statement entered by Jcarlos Aguayo MD - 12/18/24 16:00> Patient seen and examined at bedside. I discussed and supervised with the administration internship physician who took care of this patient. I personally saw and examined the patient. I agree with most of the assessment and plan. No BM post-op. KUB showed air-filled small bowel. Gen surg on board. Stopped tube feeds, placed PEG tube on drainage via gravity. Will continue to monitor, consider NG tube if patient develops emesis. Plan of care discussed with attending Dr. Berger. Jcarlos Aguayo MD PGY-2 Documentation for date of: 12/18/24 Subjective Subjective Interval history: Patient was more alert and verbal this morning, able to answer questions appropriately. Endorses abdominal pain, especially with light palpation. No bowel movement since surgery. No vomiting reported. Feeds were held this morning due to abdominal symptoms. Per RN, patient has been resting without new overnight issues. Exam Vital Signs Temp Pulse Resp BP Pulse Ox O2 Del Method O2 Flow Rate 97.3 F 82 20 135/72 H 99 Room Air 2 12/18/24 11:55 12/18/24 13:34 12/18/24 13:34 12/18/24 11:55 12/18/24 13:34 12/18/24 11:55 12/17/24 06:49 Narrative Exam Gen: Alert, somnolent but arousable HEENT: Moist mucous membranes CV: RRR, no murmurs Resp: Diminished breath sounds, no distress, sat >95% on RA Abd: Soft, moderately distended, tenderness in lower abdomen to light palpation, PEG in place Neuro: A&O x1, baseline right hemiplegia, aphasia Skin: Intact, no rash or pressure ulcers Ext: No edema; right UE mild erythema, negative for DVT by US yesterday Objective Labs 12/18/24 05:13 12/18/24 05:13 Labs: Laboratory Results - last 24 hr 12/18/24 05:13 WBC 8.1 RBC 2.94 L Hgb 9.0 L Hct 26.5 L MCV 90 MCH 30.6 MCHC 34.0 RDW Std Deviation 47.0 H Plt Count 392 D Neut % (Auto) 78 Lymph % (Auto) 11 [place] % (Auto) 8 Eos % (Auto) 1 Baso % (Auto) 0 Neut # (Auto) 6.4 Lymph # (Auto) 0.9 L [place] # (Auto) 0.7 Eos # (Auto) 0.1 Baso # (Auto) 0.0 Immature Gran # (Auto) 0.14 H Absolute Nucleated RBC 0.00 Immature Gran % 2 H Nucleated RBC % 0 Sodium 139 Potassium 3.7 Chloride 110 H Carbon Dioxide 23.6 Anion Gap 5 L BUN 15 Creatinine 0.5 L Estim Creat Clear Calc 119.4 eGFR > 60 BUN/Creatinine Ratio 30 H Glucose 131 H Calculated Osmolality 280 Calcium 8.0 L Corrected Calcium 9.4 Phosphorus 2.2 L Magnesium 1.9 Total Bilirubin 0.4 AST 19 ALT 11 Alkaline Phosphatase 44 L Total Protein 4.9 L Albumin 2.3 L Globulin 2.6 Albumin/Globulin Ratio 0.9 L ABG Interpretation ABG results: 12/07/24 12/08/24 20:42 07:22 ABG pH 7.44 7.44 ABG pCO2 31 L 33 ABG pO2 68 L 88 D ABG HCO3 21 22 ABG O2 Saturation 95 98 ABG Base Excess -3 -1 Quality Measures Quality Measures VTE prophylaxis Advance care planning discussed with:: patient Assessment & Plan Assessment Current Active Medications: Generic Name Dose Route Start Last Admin Trade Name Freq PRN Reason Stop Dose Admin Acetaminophen 650 mg 12/07/24 22:27 12/17/24 20:29 Acetaminophen Gisele 325 Mg/10 Ml Udc GT 01/06/25 22:26 650 mg Q4HR PRN Administration Pain Or Fever > 100 Protocol Apixaban 5 mg 12/10/24 09:45 12/18/24 09:48 Apixaban 2.5 Mg Tablet GT 01/09/25 09:44 5 mg BID RE Administration Aspirin 81 mg 12/08/24 09:00 12/18/24 09:48 Aspirin 81 Mg Chew GT 01/07/25 08:59 81 mg QDAY RE Administration Atorvastatin Calcium 40 mg 12/08/24 21:00 12/17/24 20:28 Atorvastatin Calcium 20 Mg Tablet GT 01/07/25 20:59 40 mg HS RE Administration Bisacodyl 10 mg 12/08/24 14:05 Bisacodyl 10 Mg Supp NC 01/07/25 14:04 QDAY PRN CONSTIPATION Protocol Dextrose 25 ml 12/15/24 10:03 Dextrose 50%-Water Inj 50 Ml Syringe IV 01/14/25 10:02 Q15MIN PRN BG 50-70 responsive npo pt Dextrose 50 ml 12/15/24 10:03 Dextrose 50%-Water Inj 50 Ml Syringe IV 01/14/25 10:02 Q15MIN PRN BG <50 OR BG <70 & pt unresponsive Doxazosin Mesylate 1 mg 12/08/24 09:00 12/18/24 09:45 Doxazosin Mesylate 1 Mg Tablet GT 01/07/25 08:59 1 mg QDAY RE Administration Famotidine 20 mg 12/08/24 09:00 12/18/24 09:48 Famotidine 20 Mg Tablet GT 01/07/25 08:59 20 mg QDAY RE Administration Fenofibrate 145 mg 12/08/24 09:00 12/18/24 09:44 Fenofibrate 145 Mg Tablet (Non-Formulary) GT 01/07/25 08:59 145 mg QDAY RE Administration Glucagon 1 mg 12/15/24 10:03 Glucagon Inj 1 Mg Vial IM Q15MIN PRN BG <70, and no IV access Fat Emulsion Intravenous 500 mls @ 32 mls/hr 12/13/24 18:00 12/16/24 19:30 Intralipid 20% Iv IV 01/12/25 17:59 Infused TUTHSA@1800 RE Infusion Potassium Acetate 20 meq/ 2,034 mls @ 80 mls/hr 12/18/24 13:00 12/18/24 12:50 Potassium Phosphate 30 mmol/ IV 12/19/24 14:25 80 mls/hr Magnesium Sulfate 2 gm/ X1 ONE Administration Multivitamins/Minerals 10 ml/ Amino Acids Acetaminophen 1,000 mg in 100 mls @ 250 mls/hr 12/18/24 13:46 Ofirmev Inj IV 12/19/24 06:23 Q6HR PRN Pain(1-3) or fever> 100 Insulin Human Lispro 0 unit 12/15/24 12:00 12/18/24 12:26 Insulin Lispro (Admelog) 1 Unit/0.01 Ml Unit SC 01/14/25 11:59 Not Given Q6HR RE Protocol Levalbuterol HCl 1.25 mg 12/08/24 01:00 12/18/24 13:33 Levalbuterol Rt 1.25 Mg/0.5 Ml Nebu INH 01/07/25 00:59 1.25 mg Q6HRRT RE Administration Metoclopramide HCl 5 mg 12/12/24 21:00 12/18/24 09:44 Metoclopramide Inj 5 Mg/Ml Vial 2 Ml IVP 01/11/25 20:59 5 mg Q12HR RE Administration Protocol Ondansetron HCl 4 mg 12/07/24 22:12 12/11/24 01:09 Ondansetron Inj 2 Mg/Ml Inj 2 Ml IVP 01/06/25 22:11 4 mg Q6H PRN Administration NAUSEA OR VOMITING Protocol Oxcarbazepine 300 mg 12/08/24 09:00 12/18/24 09:48 Oxcarbazepine 150 Mg Tablet GT 01/07/25 08:59 300 mg BID RE Administration Pantoprazole Sodium 40 mg 12/10/24 10:30 12/18/24 09:44 Pantoprazole Inj 40 Mg Vial IVP 01/09/25 10:29 40 mg QDAY RE Administration Sennosides 8.8 mg 12/08/24 08:13 Sennosides Syrup 8.8 Mg/5 Ml Udc GT 01/07/25 08:06 QDAY PRN CONSTIPATION Protocol Sodium Chloride 3 ml 12/07/24 22:12 12/18/24 13:33 Sodium Chloride Rt Gisele 0.9% 3 Ml Nebu INH 01/06/25 22:11 3 ml PRN PRN Administration SOLN Plan 79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 #Small Bowel Obstruction / Post-op Ileus S/P exploratory laparotomy with ileal-ileal anastomosis on 12/16 for necrotic bowel. Tolerated trickle feeds until today. Now with abdominal pain to light touch and no BM. KUB ordered, showed dilated loops consistent with postoperative ileus. Feeds held. Dr. Blandon updated ? recommended converting PEG to gravity drainage. If patient vomits, consider placing NG for suction (PEG unable to suction). Plan: * Hold tube feeds * PEG converted to gravity drainage * Monitor for vomiting --> consider NG placement * Serial abdominal exams, monitor for BM * Repeat imaging as needed #Post-op Monitoring Now POD2 from ex-lap + bowel resection Hgb trending down (10.6 -> 9.7 -> 9.0) without overt bleeding No fever or leukocytosis PEG patent, previously on trickle feeds Pain managed with IV tylenol Plan: * Continue close post-op monitoring * Monitor CBC daily * Continue pain control PRN * Notify surgery if new signs of leak or peritonitis #Electrolyte Abnormalities K 3.7 (stable), Phos 2.2 (repleted this AM), Mg 1.9 Na 139, Ca 9.4 Alb 2.3 chronically low Plan: * Monitor BMP, Mag, Phos * Continue repletion PRN * Maintain electrolyte balance with CPN/fluids #Right Upper Extremity Swelling (DVT ruled out) Worsening RUE edema --> venous Doppler negative for DVT Plan: * Monitor swelling * Elevate limb * Reassess for any signs of cellulitis or other causes #Abdominal Pain (Post op) Expected mild post-op discomfort Plan: * Continue PRN IV Tylenol * Gave Toradol x1 in the afternoon * Monitor response and reassess daily #Respiratory Status (stable) Room air, no new findings Plan: * Continue nebulizers PRN * Monitor for signs of decompensation #Anemia (normocytic, stable) Hgb stable at 9.0 Plan: * Monitor CBC * Plan as above * No transfusion #History of PE Eliquis resumed post-op today Plan: * Continue Eliquis * Monitor Hgb, signs of bleeding #CVA with PEG, aphasia, hemiplegia Mentation improved Plan: * Maintain aspiration precautions * Reposition Q2H * Resume medications via PEG as appropriate #Chronic Conditions ? HTN, HLD, GERD, cocci Stable Plan: * Continue atorvastatin, Protonix IV * Hold non-essential meds Health Maintenance: Disposition: Telemetry Diet: NPO (feeds held) DVT Prophylaxis: Eliquis resumed GI Prophylaxis: Protonix IV Lines: PIV PEG: In place, draining to gravity O2: Room air Code Status: DNR ----- Plan discussed with attending physician Dr. Berger and senior resident Dr. Luis Antonio MD PGY-1 Internal Medicine
[2024-12-18] MEDS: KETOROLAC INJ 30 MG/ML VIAL 15 MG IVP (16:11)
--- NOTE | 2024-12-18 18:35 | PC.NURSE ---
Talked to Pharmacy, Fat emulsion will be sent up soon.
[2024-12-18] MEDS: FAT EMULSIONS 20% IV 500 ML 32 ML IV (18:45)
--- NOTE | 2024-12-18 19:09 | PD.IMPROG ---
Documentation for date of: 12/18/24 Subjective Subjective Interval history: Patient has postoperative ileus Hold the feeding Exam Vital Signs Temp Pulse Resp BP Pulse Ox O2 Del Method O2 Flow Rate 97.3 F 85 24 H 144/79 H 98 Room Air 2 12/18/24 16:00 12/18/24 18:28 12/18/24 18:28 12/18/24 16:00 12/18/24 18:28 12/18/24 16:00 12/17/24 06:49 Objective Labs 12/18/24 05:13 12/18/24 05:13 Labs: Laboratory Results - last 24 hr 12/18/24 05:13 WBC 8.1 RBC 2.94 L Hgb 9.0 L Hct 26.5 L MCV 90 MCH 30.6 MCHC 34.0 RDW Std Deviation 47.0 H Plt Count 392 D Neut % (Auto) 78 Lymph % (Auto) 11 [place] % (Auto) 8 Eos % (Auto) 1 Baso % (Auto) 0 Neut # (Auto) 6.4 Lymph # (Auto) 0.9 L [place] # (Auto) 0.7 Eos # (Auto) 0.1 Baso # (Auto) 0.0 Immature Gran # (Auto) 0.14 H Absolute Nucleated RBC 0.00 Immature Gran % 2 H Nucleated RBC % 0 Sodium 139 Potassium 3.7 Chloride 110 H Carbon Dioxide 23.6 Anion Gap 5 L BUN 15 Creatinine 0.5 L Estim Creat Clear Calc 119.4 eGFR > 60 BUN/Creatinine Ratio 30 H Glucose 131 H Calculated Osmolality 280 Calcium 8.0 L Corrected Calcium 9.4 Phosphorus 2.2 L Magnesium 1.9 Total Bilirubin 0.4 AST 19 ALT 11 Alkaline Phosphatase 44 L Total Protein 4.9 L Albumin 2.3 L Globulin 2.6 Albumin/Globulin Ratio 0.9 L Impressions Impression: Small bowel obstruction due to ischemia requiring small bowel resection with ileal ileal anastomosis Continue postoperative care ABG Interpretation ABG results: 12/07/24 12/08/24 20:42 07:22 ABG pH 7.44 7.44 ABG pCO2 31 L 33 ABG pO2 68 L 88 D ABG HCO3 21 22 ABG O2 Saturation 95 98 ABG Base Excess -3 -1 Assessment & Plan A&P Narrative 79-year-old male with past medical history of cerebrovascular accident with residual right-sided weakness, aphasia, and dysphagia status post PEG tube placement, pulmonary embolism on Eliquis, GERD, hypertension, hyperlipidemia, and recurrent pneumonia admitted for septic shock likely due to hospital-acquired pneumonia/aspiration pneumonia. #Small Bowel Obstruction Abdominal X-rays and CT abdomen/pelvis showed persistent high-grade small bowel obstruction. NG tube remains unplaced. A 12 [place] NG tube was recommended by Dr. Gutierrez. According to nursing staff, an attempt was made; however, the patient poorly tolerated the procedure, developing coughing and oxygen desaturation during the attempt. Resistance was encountered at 45 cm. Plan - Initiate PPN due to continued NPO status and inability to tolerate NG placement - Change PEG tube drainage method to intermittent suction - Start Metoclopramide 5mg Q12HR - Continue close monitoring for signs of clinical deterioration (increased pain, tachycardia, leukocytosis) - Continue IV fluids to maintain hydration and electrolyte balance - Monitor I/Os, abdominal girth Patient plan of care was discussed with attending physician, Dr. Gutierrez. Cliff Riggs DO PGY-1 Attending attestation patient examined with internal medicine team X-rays reviewed imaging studies reviewed laboratory data reviewed Recommendations are Placement of an NGT with patient with soft restraints to intermittent suction Repeat abdominal x-ray in the morning Agree with PPN Will follow the patient closely There is a lot of stool burden on the left side of the colon Once the ileus/small bowel obstruction resolves We will give the GoLytely to clean the colon out No invasive GI workup planned at the moment Thank you for the opportunity to participate in the care of this patient Time Spent With Patient Time: Total time spent is greater than 50% in coordination of care (as documented) at patient's floor/unit and/or counseling patient:
[2024-12-18] MEDS: ATORVASTATIN CALCIUM 20 MG TABLET 40 MG GT (20:49)
[2024-12-19] VITALS (12 sets, daily range): BP systolic 135–154; BP diastolic 68–91; PULSE 65–93; RESP 16–97; TEMP 36.1–36.7; O2SAT 96–99; BMI 27.4
[2024-12-19] MEDS: LEVALBUTEROL RT 1.25 MG/0.5 ML NEBU INH ×4 (01:38→18:59)
[2024-12-19 05:47] LABS: Basophils # (Auto) 0.0 Thou/mm3 (0.0-0.2); Basophils % (Auto) 0 % (0-2.5); Eosinophils # (Auto) 0.1 Thou/mm3 (0.0-0.5); Eosinophils % (Auto) 1 % (0-10); Hematocrit 23.9 % (41.0-53.0); Immature Granulocytes Auto 0.09 Thou/mm3 (0.00-0.00); Lymphocytes # (Auto) 0.8 Thou/mm3 (1.0-4.8); Lymphocytes % (Auto) 13 % (10-50); Mean Corpuscular HGB Conc 34.3 g/dl (31.0-37.0); Mean Corpuscular Hemoglobin 31.4 pg (25.0-35.0); Mean Corpuscular Volume 92 fL (80-100); Monocytes # (Auto) 0.5 Thou/mm3 (0.0-0.8); Monocytes % (Auto) 8 % (0-12); Neutrophils # (Auto) 4.9 Thou/mm3 (1.8-7.7); Neutrophils % (Auto) 77 % (37-80); Nucleated Red Blood Cell # 0.00 Thou/mm3 (0.00-0.00); Nucleated Red Blood Cell % 0 /100 WBC (0); Platelet Count 397 Thou/mm3 (140-440); RDW Standard Deviation 47.4 fL (35.1-43.9); Red Blood Count 2.61 Miln/mm3 (4.50-5.90); White Blood Count 6.3 Thou/mm3 (3.8-10.6)
[2024-12-19 05:55] LABS: Hemoglobin 8.2 g/dL (13.5-16.0)
[2024-12-19 06:12] LABS: Alanine Aminotransferase 9 U/L (10-49); Albumin, Serum 2.3 gm/dL (3.4-4.8); Albumin/Globulin Ratio 0.9 (1.2-2.2); Alkaline Phosphatase 42 U/L (46-116); Anion Gap 5 (7-16); Aspartate Amino Transferase 17 U/L (0-34); BUN/Creatinine Ratio 33 Ratio (12-20); Bilirubin,Total 0.3 mg/dL (0.3-1.2); Blood Urea Nitrogen 13 mg/dL (9-23); Calcium 7.7 mg/dL (8.3-10.6); Calcium (Corrected) 9.1 mg/dL (8.5-10.1); Carbon Dioxide 23.1 mMol/L (20.0-31.0); Chloride 111 mMol/L (98-107); Creatinine (Component) 0.4 mg/dL (0.6-1.3); Estimated Creatinine Clearance 149.2 mL/min (>60); Globulin 2.5 gm/dL (2.3-3.5); Glucose 124 mg/dL (74-106); Magnesium 1.7 mg/dL (1.6-2.6); Osmolality,Calculated 278 (275-295); Phosphorous 2.2 mg/dL (2.4-5.1); Potassium 3.9 mMol/L (3.4-5.1); Sodium 139 mMol/L (136-145); Total Protein 4.8 gm/dL (5.7-8.2); eGFR > 60 See Note
[2024-12-19] MEDS: SODIUM CHLORIDE RT SOL 0.9% 3 ML NEBU INH ×2 (07:04→13:08)
[2024-12-19] MEDS: METOCLOPRAMIDE INJ 5 MG/ML VIAL 2 ML IVP ×2 (08:13→20:33)
[2024-12-19] MEDS: DOXAZOSIN MESYLATE 1 MG TABLET GT (08:15)
[2024-12-19] MEDS: ASPIRIN 81 MG CHEW GT (08:15)
[2024-12-19] MEDS: FAMOTIDINE 20 MG TABLET GT (08:16)
[2024-12-19] MEDS: FENOFIBRATE 145 MG TABLET (NON-FORMULARY) GT (08:16)
[2024-12-19] MEDS: APIXABAN 2.5 MG TABLET 5 MG GT ×2 (08:16→20:33)
[2024-12-19] MEDS: SOD PHOS ADDITIVE 22.5 MMOL in SODIUM CHLORIDE 0.9% 500 ML 500 ML 82.778 MMOL IV (08:46)
[2024-12-19] MEDS: Magnesium Sulfate 4 GM Ivpb 4 GM/50 ML BAG IV (08:46)
--- NOTE | 2024-12-19 09:39 | XR_ITS ---
Examination: Abdomen AP single view Technique: AP portable supine abdomen, single view Exam date and time: December 19, 2024 0942 hours INDICATIONS: Abdominal distention and pain today FINDINGS: Again noted multiple air distended small bowel loops Air is present in the colon No free air IMPRESSION: Again noted multiple air distended small bowel
--- NOTE | 2024-12-19 11:20 | PD.SURPROG ---
Documentation for date of: 12/19/24 Subjective Subjective Brief History: 79M with HTN, HLD, hx of CVA leading to R sided weakness, aphasia and dysphagia s/p PEG, PE on eliquis and recurrent pneumonia who was admitted 12/08 from [facility] for shortness of breath, being treated for recurrent pneumonia. On admission pt underwent AXR read as SBO but has been having BMs, yesterday underwent attempted small bowel series but he vomited after receiving gastrografin. Pt did have an NG in place last night but he removed it and on my exam RN was in the process of replacing it. She reported he had a large BM today and has not had any vomiting PMH: HTN, HLD, PE, GERD, CVA PSHx: PEG Meds: includes eliquis Narrative: Per charting pt had one BM yesterday and another early this am, no obvious pain today, PEG has drained 100cc today so far. Remaining afebrile with normal WBC Exam Vital Signs Temp Pulse Resp BP Pulse Ox O2 Del Method O2 Flow Rate 97.2 F 88 20 154/91 H 96 Room Air 2 12/19/24 08:00 12/19/24 08:15 12/19/24 08:00 12/19/24 08:15 12/19/24 08:00 12/19/24 08:00 12/17/24 06:49 Constitutional Constitutional: no acute distress Routine Respiratory Exam Respiratory: Present no resp distress Routine Abdominal Exam Abdominal: Present soft and distended (moderate distention); Absent tenderness Results Results: Laboratory Laboratory results: results reviewed Results: Imaging Abdominal x-ray: report reviewed and image reviewed Assessment & Plan Plan 79M with HTN, HLD, hx of CVA leading to R sided weakness, aphasia and dysphagia s/p PEG, PE on eliquis and recurrent pneumonia who was admitted 12/08 from [facility] for shortness of breath, being treated for recurrent pneumonia, with radiographic findings of SBO refractory to conservative management, now status post laparotomy, small bowel resection and ileal ileal anastomosis 12/16, with signs of postoperative ileus, today's AXR overall similar to yesterday's PEG to drainage If pt develops vomiting please place NG to LIS Continue PPN Avoid narcotics if possible PROCEDURES: Procedures Exploratory laparotomy, small bowel resection, ileal ileal anastomosis
[2024-12-19 13:36] LABS: Hematocrit 25.1 % (41.0-53.0)
--- NOTE | 2024-12-19 13:41 | ESPR_ITS ---
<Statement entered by Piedad Berger MD - 12/22/24 12:39> I reviewed above note and agree with findings and plans. I have also personally examined the patient with medicine team and went over assessment and plan with medical team including internal recruiter and resident physician. <Statement entered by Jcarlos Aguayo MD - 12/19/24 17:19> Patient seen and examined at bedside. I discussed and supervised with the internal recruiter physician who took care of this patient. I personally saw and examined the patient. I agree with most of the assessment and plan. Patient with minimal BM. Continuing to hold tube feeds, PEG to drain via gravity. Surgery aware, agree with management. Plan of care discussed with attending Dr. Berger. Jcarlos Aguayo MD PGY-2 Documentation for date of: 12/19/24 Subjective Subjective Interval history: Patient more somnolent this morning but arousable. States he has abdominal pain, especially to light palpation. Per overnight nursing note, had 2 BMs, but unable to confirm with bedside nurses about quantity or if real BM. KUB was ordered and showed increased bowel dilation compared to yesterday. No vomiting or overt GI bleeding. Patient denied SOB or new complaints otherwise. He remains on room air with stable vitals. Surgery notified and will monitor for now, with plan to reassess tomorrow for possible intervention. Exam Vital Signs Temp Pulse Resp BP Pulse Ox O2 Del Method O2 Flow Rate 97.0 F 87 16 135/68 H 99 Room Air 2 12/19/24 12:00 12/19/24 13:10 12/19/24 13:10 12/19/24 12:00 12/19/24 13:10 12/19/24 12:00 12/17/24 06:49 Narrative Exam Gen: Alert, somnolent but arousable HEENT: Moist mucous membranes CV: RRR, no murmurs Resp: Diminished breath sounds, no distress, sat >95% on RA Abd: Soft, less distended compared to yesterday, tenderness in the abdomen expected from surgery scar, PEG in place Neuro: A&O x1, baseline right hemiplegia, aphasia Skin: Intact, no rash or pressure ulcers Ext: Right UE mild erythema and edema, negative for DVT by US yesterday Objective Labs 12/19/24 04:52 12/19/24 04:52 Labs: Laboratory Results - last 24 hr 12/19/24 04:52 WBC 6.3 RBC 2.61 L Hgb 8.2 L Hct 23.9 L MCV 92 MCH 31.4 MCHC 34.3 RDW Std Deviation 47.4 H Plt Count 397 Neut % (Auto) 77 Lymph % (Auto) 13 Adams % (Auto) 8 Eos % (Auto) 1 Baso % (Auto) 0 Neut # (Auto) 4.9 Lymph # (Auto) 0.8 L Adams # (Auto) 0.5 Eos # (Auto) 0.1 Baso # (Auto) 0.0 Immature Gran # (Auto) 0.09 H Absolute Nucleated RBC 0.00 Immature Gran % 1 H Nucleated RBC % 0 Sodium 139 Potassium 3.9 Chloride 111 H Carbon Dioxide 23.1 Anion Gap 5 L BUN 13 Creatinine 0.4 L Estim Creat Clear Calc 149.2 eGFR > 60 BUN/Creatinine Ratio 33 H Glucose 124 H Calculated Osmolality 278 Calcium 7.7 L Corrected Calcium 9.1 Phosphorus 2.2 L Magnesium 1.7 Total Bilirubin 0.3 AST 17 ALT 9 L Alkaline Phosphatase 42 L Total Protein 4.8 L Albumin 2.3 L Globulin 2.5 Albumin/Globulin Ratio 0.9 L ABG Interpretation ABG results: 12/07/24 12/08/24 20:42 07:22 ABG pH 7.44 7.44 ABG pCO2 31 L 33 ABG pO2 68 L 88 D ABG HCO3 21 22 ABG O2 Saturation 95 98 ABG Base Excess -3 -1 Quality Measures Quality Measures VTE prophylaxis Advance care planning discussed with:: patient Assessment & Plan Assessment Current Active Medications: Generic Name Dose Route Start Last Admin Trade Name Freq PRN Reason Stop Dose Admin Acetaminophen 650 mg 12/07/24 22:27 12/17/24 20:29 Acetaminophen Gisele 325 Mg/10 Ml Udc GT 01/06/25 22:26 650 mg Q4HR PRN Administration Pain Or Fever > 100 Protocol Apixaban 5 mg 12/10/24 09:45 12/19/24 08:16 Apixaban 2.5 Mg Tablet GT 01/09/25 09:44 5 mg BID RE Administration Aspirin 81 mg 12/08/24 09:00 12/19/24 08:15 Aspirin 81 Mg Chew GT 01/07/25 08:59 81 mg QDAY RE Administration Atorvastatin Calcium 40 mg 12/08/24 21:00 12/18/24 20:49 Atorvastatin Calcium 20 Mg Tablet GT 01/07/25 20:59 40 mg HS RE Administration Bisacodyl 10 mg 12/08/24 14:05 Bisacodyl 10 Mg Supp WI 01/07/25 14:04 QDAY PRN CONSTIPATION Protocol Dextrose 25 ml 12/15/24 10:03 Dextrose 50%-Water Inj 50 Ml Syringe IV 01/14/25 10:02 Q15MIN PRN BG 50-70 responsive npo pt Dextrose 50 ml 12/15/24 10:03 Dextrose 50%-Water Inj 50 Ml Syringe IV 01/14/25 10:02 Q15MIN PRN BG <50 OR BG <70 & pt unresponsive Doxazosin Mesylate 1 mg 12/08/24 09:00 12/19/24 08:15 Doxazosin Mesylate 1 Mg Tablet GT 01/07/25 08:59 1 mg QDAY RE Administration Famotidine 20 mg 12/08/24 09:00 12/19/24 08:16 Famotidine 20 Mg Tablet GT 01/07/25 08:59 20 mg QDAY RE Administration Fenofibrate 145 mg 12/08/24 09:00 12/19/24 08:16 Fenofibrate 145 Mg Tablet (Non-Formulary) GT 01/07/25 08:59 145 mg QDAY RE Administration Glucagon 1 mg 12/15/24 10:03 Glucagon Inj 1 Mg Vial IM Q15MIN PRN BG <70, and no IV access Fat Emulsion Intravenous 500 mls @ 32 mls/hr 12/13/24 18:00 12/18/24 18:45 Intralipid 20% Iv IV 01/12/25 17:59 32 mls/hr [id number]@1800 RE Administration Potassium Acetate 20 meq/ 2,034 mls @ 80 mls/hr 12/18/24 13:00 12/18/24 12:50 Potassium Phosphate 30 mmol/ IV 12/19/24 14:25 80 mls/hr Magnesium Sulfate 2 gm/ X1 ONE Administration Multivitamins/Minerals 10 ml/ Amino Acids Sodium Phosphate 22.5 mmol/ 507.5 mls @ 82.778 mls/hr 12/19/24 07:51 12/19/24 08:46 Sodium Chloride IV 12/19/24 13:58 82.778 mls/hr X1 ONE Administration Potassium Acetate 30 meq/ 2,037 mls @ 80 mls/hr 12/19/24 14:25 Potassium Phosphate 24 mmol/ IV 12/20/24 15:52 Magnesium Sulfate 2 gm/ X1 ONE Calcium Gluconate 1 gm/ Amino Acids Insulin Human Lispro 0 unit 12/15/24 12:00 12/19/24 11:42 Insulin Lispro (Admelog) 1 Unit/0.01 Ml Unit SC 01/14/25 11:59 Not Given Q6HR RE Protocol Ketorolac Tromethamine 30 mg 12/19/24 11:44 Ketorolac Inj 30 Mg/Ml Vial IVP 12/24/24 11:43 Q6HR PRN PAIN Protocol Levalbuterol HCl 1.25 mg 12/08/24 01:00 12/19/24 13:08 Levalbuterol Rt 1.25 Mg/0.5 Ml Nebu INH 01/07/25 00:59 1.25 mg Q6HRRT RE Administration Metoclopramide HCl 5 mg 12/12/24 21:00 12/19/24 08:13 Metoclopramide Inj 5 Mg/Ml Vial 2 Ml IVP 01/11/25 20:59 5 mg Q12HR RE Administration Protocol Ondansetron HCl 4 mg 12/07/24 22:12 12/11/24 01:09 Ondansetron Inj 2 Mg/Ml Inj 2 Ml IVP 01/06/25 22:11 4 mg Q6H PRN Administration NAUSEA OR VOMITING Protocol Oxcarbazepine 300 mg 12/08/24 09:00 12/19/24 08:15 Oxcarbazepine 150 Mg Tablet GT 01/07/25 08:59 300 mg BID RE Administration Pantoprazole Sodium 40 mg 12/10/24 10:30 12/19/24 08:12 Pantoprazole Inj 40 Mg Vial IVP 01/09/25 10:29 40 mg QDAY RE Administration Sennosides 8.8 mg 12/08/24 08:13 Sennosides Syrup 8.8 Mg/5 Ml Udc GT 01/07/25 08:06 QDAY PRN CONSTIPATION Protocol Sodium Chloride 3 ml 12/07/24 22:12 12/19/24 13:08 Sodium Chloride Rt Gisele 0.9% 3 Ml Nebu INH 01/06/25 22:11 3 ml PRN PRN Administration SOLN Plan 79-year-old male with PMH of CVA with PEG, recurrent pneumonia, and PE on Eliquis, s/p ex-lap with small bowel resection and ileal-ileal anastomosis (12/16), now post-op day 3 with worsening abdominal pain and distension, no confirmed BM, and new concern for possible ileus. #Small Bowel Obstruction s/p Ex-Lap with Resection (12/16) Post-op day 3 from ileal-ileal anastomosis for necrotic distal ileum causing SBO. Patient now with worsening abdominal distension and tenderness, unclear bowel function despite nurse note of 2 BMs. KUB from 12/19 shows same dilation compared to 12/18. Feeds held this morning per our team. Surgery updated; plan is to monitor for now and reassess tomorrow for potential NG reinsertion or other intervention. No vomiting yet. PEG on gravity drainage. Plan: * Hold feeds * Monitor abdominal exam closely * Repeat KUB tomorrow morning if no BM * Continue PEG on gravity drainage * Surgery aware and following; will consider intervention if no improvement tomorrow #Post-op Monitoring Now POD3 from ex-lap + bowel resection Hgb trending down (10.6 -> 9.7 -> 9.0->8.2->8.7) without overt bleeding No fever or leukocytosis PEG patent, previously on trickle feeds Pain managed with IV tylenol Plan: * Continue close post-op monitoring * Monitor CBC daily * Continue pain control PRN * Notify surgery if new signs of leak or peritonitis #Electrolyte Abnormalities K 3.9 (stable), Phos 2.2, Mag 1.9 this morning Na 139, Ca 9.1 Alb 2.2 chronically low Plan: * Monitor BMP, Mag, Phos * Continue repletion PRN * Maintain electrolyte balance with CPN/fluids #Right Upper Extremity Swelling (DVT ruled out) RUE edema stable --> venous Doppler negative for DVT Plan: * Monitor swelling * Elevate limb * Reassess for any signs of cellulitis or other causes #Abdominal Pain (Post op) Expected mild post-op discomfort Plan: * Continue PRN IV Tylenol * Gave Toradol x1 in the afternoon * Monitor response and reassess daily #Respiratory Status (stable) Room air, no new findings Plan: * Continue nebulizers PRN * Monitor for signs of decompensation #Anemia (normocytic, stable) Hgb trending down (10.6 -> 9.7 -> 9.0->8.2->8.7) without overt bleeding Plan: * Monitor CBC * Plan as above * No transfusion #History of PE Eliquis resumed post-op today Plan: * Continue Eliquis * Monitor Hgb, signs of bleeding #CVA with PEG, aphasia, hemiplegia Mentation improved Plan: * Maintain aspiration precautions * Reposition Q2H * Resume medications via PEG as appropriate #Chronic Conditions ? HTN, HLD, GERD, cocci Stable Plan: * Continue atorvastatin, Protonix IV * Hold non-essential meds Health Maintenance: Disposition: Telemetry Diet: NPO (feeds held) DVT Prophylaxis: Eliquis resumed GI Prophylaxis: Protonix IV Lines: PIV PEG: In place, draining to gravity O2: Room air Code Status: DNR ----- Plan discussed with attending physician Dr. Berger and senior resident Dr. Luis Antonio MD PGY-1 Internal Medicine
[2024-12-19 13:43] LABS: Hemoglobin 8.7 g/dL (13.5-16.0)
[2024-12-19] MEDS: MAGNESIUM SULF IV (14:10)
[2024-12-19] MEDS: [UNRECOGNIZED DRUG - OTHER] IV (14:10)
[2024-12-19] MEDS: POTASSIUM ACET IV (14:10)
[2024-12-19] MEDS: POTASSIUM PHOS IV (14:10)
--- NOTE | 2024-12-19 14:44 | PC.SS ---
Rounding note: Patient has NG tube tube in place, surgery is consulting to determine if intervention is required. D/c plan is to return to 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
[2024-12-19] MEDS: ATORVASTATIN CALCIUM 20 MG TABLET 40 MG GT (20:33)
--- NOTE | 2024-12-19 21:52 | PD.IMPROG ---
Documentation for date of: 12/19/24 Subjective Subjective Interval history: Patient had 2 bowel movements 1 yesterday and 1 this morning About 100 cc of drainage from the PEG site Exam Vital Signs Temp Pulse Resp BP Pulse Ox O2 Del Method O2 Flow Rate 98.1 F 77 19 136/74 H 97 Room Air 2 12/19/24 19:52 12/19/24 19:52 12/19/24 19:52 12/19/24 19:52 12/19/24 19:52 12/19/24 19:52 12/17/24 06:49 Objective Labs 12/19/24 13:03 12/19/24 04:52 Labs: Laboratory Results - last 24 hr 12/19/24 12/19/24 04:52 13:03 WBC 6.3 RBC 2.61 L Hgb 8.2 L 8.7 L Hct 23.9 L 25.1 L MCV 92 MCH 31.4 MCHC 34.3 RDW Std Deviation 47.4 H Plt Count 397 Neut % (Auto) 77 Lymph % (Auto) 13 [place] % (Auto) 8 Eos % (Auto) 1 Baso % (Auto) 0 Neut # (Auto) 4.9 Lymph # (Auto) 0.8 L [place]er # (Auto) 0.5 Eos # (Auto) 0.1 Baso # (Auto) 0.0 Immature Gran # (Auto) 0.09 H Absolute Nucleated RBC 0.00 Immature Gran % 1 H Nucleated RBC % 0 Sodium 139 Potassium 3.9 Chloride 111 H Carbon Dioxide 23.1 Anion Gap 5 L BUN 13 Creatinine 0.4 L Estim Creat Clear Calc 149.2 eGFR > 60 BUN/Creatinine Ratio 33 H Glucose 124 H Calculated Osmolality 278 Calcium 7.7 L Corrected Calcium 9.1 Phosphorus 2.2 L Magnesium 1.7 Total Bilirubin 0.3 AST 17 ALT 9 L Alkaline Phosphatase 42 L Total Protein 4.8 L Albumin 2.3 L Globulin 2.5 Albumin/Globulin Ratio 0.9 L Impressions Impression: Small bowel obstruction status post resection and ileal ileal anastomosis Doing well postoperatively although slow recovery Continue current management ABG Interpretation ABG results: 12/07/24 12/08/24 20:42 07:22 ABG pH 7.44 7.44 ABG pCO2 31 L 33 ABG pO2 68 L 88 D ABG HCO3 21 22 ABG O2 Saturation 95 98 ABG Base Excess -3 -1 Assessment & Plan A&P Narrative 79-year-old male with past medical history of cerebrovascular accident with residual right-sided weakness, aphasia, and dysphagia status post PEG tube placement, pulmonary embolism on Eliquis, GERD, hypertension, hyperlipidemia, and recurrent pneumonia admitted for septic shock likely due to hospital-acquired pneumonia/aspiration pneumonia. #Small Bowel Obstruction Abdominal X-rays and CT abdomen/pelvis showed persistent high-grade small bowel obstruction. NG tube remains unplaced. A 12 Macedonian NG tube was recommended by Dr. Gutierrez. According to nursing staff, an attempt was made; however, the patient poorly tolerated the procedure, developing coughing and oxygen desaturation during the attempt. Resistance was encountered at 45 cm. Plan - Initiate PPN due to continued NPO status and inability to tolerate NG placement - Change PEG tube drainage method to intermittent suction - Start Metoclopramide 5mg Q12HR - Continue close monitoring for signs of clinical deterioration (increased pain, tachycardia, leukocytosis) - Continue IV fluids to maintain hydration and electrolyte balance - Monitor I/Os, abdominal girth Patient plan of care was discussed with attending physician, Dr. Gutierrez. Cliff Riggs DO PGY-1 Attending attestation patient examined with internal medicine team X-rays reviewed imaging studies reviewed laboratory data reviewed Recommendations are Placement of an NGT with patient with soft restraints to intermittent suction Repeat abdominal x-ray in the morning Agree with PPN Will follow the patient closely There is a lot of stool burden on the left side of the colon Once the ileus/small bowel obstruction resolves We will give the GoLytely to clean the colon out No invasive GI workup planned at the moment Thank you for the opportunity to participate in the care of this patient Time Spent With Patient Time: Total time spent is greater than 50% in coordination of care (as documented) at patient's floor/unit and/or counseling patient:
[2024-12-20] VITALS (12 sets, daily range): BP systolic 111–166; BP diastolic 61–83; PULSE 66–90; RESP 16–96; TEMP 36.1–36.6; O2SAT 93–99; BMI 27.4
[2024-12-20] MEDS: LEVALBUTEROL RT 1.25 MG/0.5 ML NEBU INH ×4 (00:59→18:23)
[2024-12-20] MEDS: SODIUM CHLORIDE RT SOL 0.9% 3 ML NEBU INH ×3 (06:57→18:23)
[2024-12-20 07:18] LABS: Basophils # (Auto) 0.0 Thou/mm3 (0.0-0.2); Basophils % (Auto) 0 % (0-2.5); Eosinophils # (Auto) 0.0 Thou/mm3 (0.0-0.5); Eosinophils % (Auto) 1 % (0-10); Hematocrit 26.0 % (41.0-53.0); Hemoglobin 8.9 g/dL (13.5-16.0); Immature Granulocytes Auto 0.05 Thou/mm3 (0.00-0.00); Lymphocytes # (Auto) 0.8 Thou/mm3 (1.0-4.8); Lymphocytes % (Auto) 16 % (10-50); Mean Corpuscular HGB Conc 34.2 g/dl (31.0-37.0); Mean Corpuscular Hemoglobin 30.9 pg (25.0-35.0); Mean Corpuscular Volume 90 fL (80-100); Monocytes # (Auto) 0.4 Thou/mm3 (0.0-0.8); Monocytes % (Auto) 7 % (0-12); Neutrophils # (Auto) 3.6 Thou/mm3 (1.8-7.7); Neutrophils % (Auto) 74 % (37-80); Nucleated Red Blood Cell # 0.00 Thou/mm3 (0.00-0.00); Nucleated Red Blood Cell % 0 /100 WBC (0); Platelet Count 471 Thou/mm3 (140-440); RDW Standard Deviation 48.4 fL (35.1-43.9); Red Blood Count 2.88 Miln/mm3 (4.50-5.90); White Blood Count 4.8 Thou/mm3 (3.8-10.6)
[2024-12-20 07:43] LABS: Alanine Aminotransferase 10 U/L (10-49); Albumin, Serum 2.5 gm/dL (3.4-4.8); Albumin/Globulin Ratio 0.9 (1.2-2.2); Alkaline Phosphatase 48 U/L (46-116); Anion Gap 4 (7-16); Aspartate Amino Transferase 19 U/L (0-34); BUN/Creatinine Ratio 30 Ratio (12-20); Bilirubin,Total 0.3 mg/dL (0.3-1.2); Blood Urea Nitrogen 12 mg/dL (9-23); Calcium 7.9 mg/dL (8.3-10.6); Calcium (Corrected) 9.1 mg/dL (8.5-10.1); Carbon Dioxide 22.9 mMol/L (20.0-31.0); Chloride 111 mMol/L (98-107); Creatinine (Component) 0.4 mg/dL (0.6-1.3); Estimated Creatinine Clearance 149.2 mL/min (>60); Globulin 2.9 gm/dL (2.3-3.5); Glucose 117 mg/dL (74-106); Magnesium 1.9 mg/dL (1.6-2.6); Osmolality,Calculated 276 (275-295); Phosphorous 2.5 mg/dL (2.4-5.1); Potassium 4.0 mMol/L (3.4-5.1); Sodium 138 mMol/L (136-145); Total Protein 5.4 gm/dL (5.7-8.2); eGFR > 60 See Note
[2024-12-20] MEDS: SENNOSIDES SYRUP 8.8 MG/5 ML UDC GT (08:57)
[2024-12-20] MEDS: FAMOTIDINE 20 MG TABLET GT (08:58)
[2024-12-20] MEDS: APIXABAN 2.5 MG TABLET 5 MG GT ×2 (08:58→20:31)
[2024-12-20] MEDS: FENOFIBRATE 145 MG TABLET (NON-FORMULARY) GT (08:58)
[2024-12-20] MEDS: METOCLOPRAMIDE INJ 5 MG/ML VIAL 2 ML IVP ×2 (09:00→20:27)
[2024-12-20] MEDS: KETOROLAC INJ 30 MG/ML VIAL IVP (09:01)
--- NOTE | 2024-12-20 09:15 | XR_ITS ---
Examination: Abdomen AP single view Technique: AP portable supine abdomen, single view Exam date and time: December 20, 2024 0803 hours INDICATIONS: Abdominal distention this week. FINDINGS: Air distended small bowel loops again noted No free air Gastrostomy tube overlying the stomach IMPRESSION: Significantly air distended small bowel loops again noted
--- NOTE | 2024-12-20 09:41 | ESPR_ITS ---
Documentation for date of: 12/20/24 Subjective Subjective Brief History: 79M with HTN, HLD, hx of CVA leading to R sided weakness, aphasia and dysphagia s/p PEG, PE on eliquis and recurrent pneumonia who was admitted 12/08 from [facility] for shortness of breath, being treated for recurrent pneumonia. On admission pt underwent AXR read as SBO but has been having BMs, yesterday underwent attempted small bowel series but he vomited after receiving gastrografin. Pt did have an NG in place last night but he removed it and on my exam RN was in the process of replacing it. She reported he had a large BM today and has not had any vomiting PMH: HTN, HLD, PE, GERD, CVA PSHx: PEG Meds: includes eliquis Narrative: PEG drained about 100cc total yesterday and minimal today, pt resting comfortably but seems to have some discomfort with palpation, per RN no BMs today or yesterday Exam Vital Signs Temp Pulse Resp BP Pulse Ox O2 Del Method O2 Flow Rate 97.1 F 78 17 140/80 H 93 L Room Air 2 12/20/24 08:00 12/20/24 08:00 12/20/24 08:00 12/20/24 08:00 12/20/24 08:00 12/20/24 08:00 12/17/24 06:49 Constitutional Constitutional: no acute distress Routine Respiratory Exam Respiratory: Present no resp distress Routine Abdominal Exam Abdominal: Present soft, tenderness (mild tenderness) and distended (mild distention) Results Results: Laboratory Laboratory results: results reviewed Results: Imaging Abdominal x-ray: report reviewed and image reviewed Assessment & Plan Plan 79M with HTN, HLD, hx of CVA leading to R sided weakness, aphasia and dysphagia s/p PEG, PE on eliquis and recurrent pneumonia who was admitted 12/08 from [facility] for shortness of breath, being treated for recurrent pneumonia, with radiographic findings of SBO refractory to conservative management, now status post laparotomy, small bowel resection and ileal ileal anastomosis 12/16, with signs of postoperative ileus, though minimal PEG output and no vomiting, mild improvement in the appearance of today's AXR Restart trickle feeds, continue PPN Appreciate RD recs re possible TPN Monitor electrolytes PROCEDURES: Procedures Exploratory laparotomy, small bowel resection, ileal ileal anastomosis
[2024-12-20] MEDS: DOXAZOSIN MESYLATE 1 MG TABLET GT (09:51)
[2024-12-20] MEDS: ASPIRIN 81 MG CHEW GT (09:52)
[2024-12-20 11:48] LABS: Triglycerides 118 mg/dL (30-150)
--- NOTE | 2024-12-20 13:22 | PC.SS ---
FLOOR STEWARD/STEWARDESS spoke to staff at [facility] to confirm d/c plan, [facility] stated that patient can d/c back to facility once he is medically cleared.
--- NOTE | 2024-12-20 14:28 | ESPR_ITS ---
<Statement entered by Piedad Berger MD - 12/22/24 12:40> I reviewed above note and agree with findings and plans. I have also personally examined the patient with medicine team and went over assessment and plan with medical team including creative services intern and resident physician. <Statement entered by Jcarlos Aguayo MD - 12/20/24 16:45> Patient seen and examined at bedside. I discussed and supervised with the creative services intern physician who took care of this patient. I personally saw and examined the patient. I agree with most of the assessment and plan. Patient had large BM today. Resumed trickle feeds, will advance. Hg stable. Will continue PPN. Plan of care discussed with attending Dr. Berger. Jcarlos Aguayo MD PGY-2 Documentation for date of: 12/20/24 Subjective Subjective Interval history: Patient seen and examined at bedside. He appears more alert today, more verbal, and endorsed mild abdominal pain but improved compared to prior days. Nurse reports the patient had a massive bowel movement after receiving Senna this morning. No episodes of nausea or vomiting. PPN and trickle tube feeds were resumed. No new complaints. Exam Vital Signs Temp Pulse Resp BP Pulse Ox O2 Del Method O2 Flow Rate 97.8 F 89 20 111/62 99 Room Air 2 12/20/24 12:00 12/20/24 13:50 12/20/24 13:50 12/20/24 12:00 12/20/24 13:50 12/20/24 12:00 12/17/24 06:49 Narrative Exam General: Calm, semi-verbal answering with one word HEENT: Moist mucous membranes CV: RRR, no murmurs Pulm: Clear to auscultation bilaterally, sat >95% on RA Abd: Soft, mildly tender, less distended than prior, PEG in place Neuro: A&O x1, right facial droop and hemiplegia (baseline) Skin: Intact, no rash or breakdown Objective Labs 12/20/24 06:35 12/20/24 06:35 Labs: Laboratory Results - last 24 hr 12/20/24 06:35 WBC 4.8 RBC 2.88 L Hgb 8.9 L Hct 26.0 L MCV 90 MCH 30.9 MCHC 34.2 RDW Std Deviation 48.4 H Plt Count 471 H D Neut % (Auto) 74 Lymph % (Auto) 16 [place] % (Auto) 7 Eos % (Auto) 1 Baso % (Auto) 0 Neut # (Auto) 3.6 Lymph # (Auto) 0.8 L [place] # (Auto) 0.4 Eos # (Auto) 0.0 Baso # (Auto) 0.0 Immature Gran # (Auto) 0.05 H Absolute Nucleated RBC 0.00 Immature Gran % 1 H Nucleated RBC % 0 Sodium 138 Potassium 4.0 Chloride 111 H Carbon Dioxide 22.9 Anion Gap 4 L BUN 12 Creatinine 0.4 L Estim Creat Clear Calc 149.2 eGFR > 60 BUN/Creatinine Ratio 30 H Glucose 117 H Calculated Osmolality 276 Calcium 7.9 L Corrected Calcium 9.1 Phosphorus 2.5 Magnesium 1.9 Total Bilirubin 0.3 AST 19 ALT 10 Alkaline Phosphatase 48 Total Protein 5.4 L Albumin 2.5 L Globulin 2.9 Albumin/Globulin Ratio 0.9 L Triglycerides 118 ABG Interpretation ABG results: 12/07/24 12/08/24 20:42 07:22 ABG pH 7.44 7.44 ABG pCO2 31 L 33 ABG pO2 68 L 88 D ABG HCO3 21 22 ABG O2 Saturation 95 98 ABG Base Excess -3 -1 Quality Measures Quality Measures VTE prophylaxis Advance care planning discussed with:: patient Assessment & Plan Assessment Current Active Medications: Generic Name Dose Route Start Last Admin Trade Name Freq PRN Reason Stop Dose Admin Acetaminophen 650 mg 12/07/24 22:27 12/17/24 20:29 Acetaminophen Gisele 325 Mg/10 Ml Udc GT 01/06/25 22:26 650 mg Q4HR PRN Administration Pain Or Fever > 100 Protocol Apixaban 5 mg 12/10/24 09:45 12/20/24 08:58 Apixaban 2.5 Mg Tablet GT 01/09/25 09:44 5 mg BID RE Administration Aspirin 81 mg 12/08/24 09:00 12/20/24 09:52 Aspirin 81 Mg Chew GT 01/07/25 08:59 81 mg QDAY RE Administration Atorvastatin Calcium 40 mg 12/08/24 21:00 12/19/24 20:33 Atorvastatin Calcium 20 Mg Tablet GT 01/07/25 20:59 40 mg HS RE Administration Bisacodyl 10 mg 12/08/24 14:05 Bisacodyl 10 Mg Supp [place] 01/07/25 14:04 QDAY PRN CONSTIPATION Protocol Dextrose 25 ml 12/15/24 10:03 Dextrose 50%-Water Inj 50 Ml Syringe IV 01/14/25 10:02 Q15MIN PRN BG 50-70 responsive npo pt Dextrose 50 ml 12/15/24 10:03 Dextrose 50%-Water Inj 50 Ml Syringe IV 01/14/25 10:02 Q15MIN PRN BG <50 OR BG <70 & pt unresponsive Doxazosin Mesylate 1 mg 12/08/24 09:00 12/20/24 09:51 Doxazosin Mesylate 1 Mg Tablet GT 01/07/25 08:59 1 mg QDAY RE Administration Famotidine 20 mg 12/08/24 09:00 12/20/24 08:58 Famotidine 20 Mg Tablet GT 01/07/25 08:59 20 mg QDAY RE Administration Fenofibrate 145 mg 12/08/24 09:00 12/20/24 08:58 Fenofibrate 145 Mg Tablet (Non-Formulary) GT 01/07/25 08:59 145 mg QDAY RE Administration Glucagon 1 mg 12/15/24 10:03 Glucagon Inj 1 Mg Vial IM Q15MIN PRN BG <70, and no IV access Fat Emulsion Intravenous 500 mls @ 32 mls/hr 12/13/24 18:00 12/18/24 18:45 Intralipid 20% Iv IV 01/12/25 17:59 32 mls/hr TUTHSA@1800 RE Administration Potassium Acetate 30 meq/ 2,037 mls @ 80 mls/hr 12/19/24 14:25 12/19/24 14:10 Potassium Phosphate 24 mmol/ IV 12/20/24 15:52 80 mls/hr Magnesium Sulfate 2 gm/ X1 ONE Administration Calcium Gluconate 1 gm/ Amino Acids Potassium Acetate 30 meq/ 2,039 mls @ 35 mls/hr 12/20/24 15:30 Potassium Phosphate 30 mmol/ IV 12/23/24 01:45 Magnesium Sulfate 2 gm/ QDAY@1530 ONE Calcium Gluconate 1 gm/ Amino Acids Insulin Human Lispro 0 unit 12/15/24 12:00 12/20/24 11:27 Insulin Lispro (Admelog) 1 Unit/0.01 Ml Unit SC 01/14/25 11:59 Not Given Q6HR RE Protocol Ketorolac Tromethamine 30 mg 12/19/24 11:44 12/20/24 09:01 Ketorolac Inj 30 Mg/Ml Vial IVP 12/24/24 11:43 30 mg Q6HR PRN Administration PAIN Protocol Levalbuterol HCl 1.25 mg 12/08/24 01:00 12/20/24 13:48 Levalbuterol Rt 1.25 Mg/0.5 Ml Nebu INH 01/07/25 00:59 1.25 mg Q6HRRT RE Administration Metoclopramide HCl 5 mg 12/12/24 21:00 12/20/24 09:00 Metoclopramide Inj 5 Mg/Ml Vial 2 Ml IVP 01/11/25 20:59 5 mg Q12HR RE Administration Protocol Ondansetron HCl 4 mg 12/07/24 22:12 12/11/24 01:09 Ondansetron Inj 2 Mg/Ml Inj 2 Ml IVP 01/06/25 22:11 4 mg Q6H PRN Administration NAUSEA OR VOMITING Protocol Oxcarbazepine 300 mg 12/08/24 09:00 12/20/24 08:59 Oxcarbazepine 150 Mg Tablet GT 01/07/25 08:59 300 mg BID RE Administration Pantoprazole Sodium 40 mg 12/10/24 10:30 12/20/24 08:59 Pantoprazole Inj 40 Mg Vial IVP 01/09/25 10:29 40 mg QDAY RE Administration Sennosides 8.8 mg 12/08/24 08:13 12/20/24 08:57 Sennosides Syrup 8.8 Mg/5 Ml Udc GT 01/07/25 08:06 8.8 mg QDAY PRN Administration CONSTIPATION Protocol Sodium Chloride 3 ml 12/07/24 22:12 12/20/24 13:48 Sodium Chloride Rt Gisele 0.9% 3 Ml Nebu INH 01/06/25 22:11 3 ml PRN PRN Administration SOLN Plan 79-year-old male with PEG-dependent dysphagia s/p CVA, history of PE on Eliquis, and SBO s/p exploratory laparotomy with ileal resection on 12/16, now post-op day 4 with improving abdominal pain and resumed bowel function. #Small Bowel Obstruction (SBO) ? s/p ex-lap with ileal resection and anastomosis (12/16) Post-op day 4. Abdomen less distended, pain improved, and had a large BM this morning after Senna, suggesting improving GI motility. Trickle feeds and PPN were restarted. Plan: * Continue trickle PEG tube feeds * Continue PPN until full feeds tolerated * Monitor for recurrent abdominal distension, vomiting, or feeding intolerance * Check I/Os and daily weights * Hold advancement of feeds until tolerated * Continue Senna PRN for bowel regimen #Post-op Monitoring Now POD4 from ex-lap + bowel resection Hgb trending down (10.6 -> 9.7 -> 9.0->8.2->8.7) without overt bleeding No fever or leukocytosis PEG patent, previously on trickle feeds Pain managed with IV tylenol Plan: * Continue close post-op monitoring * Monitor CBC daily * Continue pain control PRN * Notify surgery if new signs of leak or peritonitis #Electrolyte Abnormalities K 4.0 (stable), Phos 2.5, Mag 1.9 this morning Na 138, Ca 9.1 Alb 2.2 chronically low Plan: * Monitor BMP, Mag, Phos * Continue repletion PRN * Maintain electrolyte balance with CPN/fluids #Right Upper Extremity Swelling (DVT ruled out) RUE edema stable --> venous Doppler negative for DVT Plan: * Monitor swelling * Elevate limb * Reassess for any signs of cellulitis or other causes #Abdominal Pain (Post op) Expected mild post-op discomfort Plan: * Continue PRN IV Tylenol * Gave Toradol x1 in the afternoon * Monitor response and reassess daily #Respiratory Status (stable) Room air, no new findings Plan: * Continue nebulizers PRN * Monitor for signs of decompensation #Anemia (normocytic, stable) Hgb trending down (10.6 -> 9.7 -> 9.0->8.2->8.7->8.9) without overt bleeding Plan: * Monitor CBC * Plan as above * No transfusion #History of PE Eliquis resumed post-op today Plan: * Continue Eliquis * Monitor Hgb, signs of bleeding #CVA with PEG, aphasia, hemiplegia Mentation improved Plan: * Maintain aspiration precautions * Reposition Q2H * Resume medications via PEG as appropriate #Chronic Conditions ? HTN, HLD, GERD, cocci Stable Plan: * Continue atorvastatin, Protonix IV * Hold non-essential meds Health Maintenance: Disposition: Telemetry Diet: PPN and trickle feed resumed DVT Prophylaxis: Eliquis resumed GI Prophylaxis: Protonix IV Lines: PIV PEG: In place, draining to gravity O2: Room air Code Status: DNR ----- Plan discussed with attending physician Dr. Berger and senior resident Dr. Luis Antonio MD PGY-1 Internal Medicine
--- NOTE | 2024-12-20 14:36 | PC.SS ---
Rounding note: Pt. pending dietary recommendation.
[2024-12-20] MEDS: POTASSIUM ACET IV (14:52)
[2024-12-20] MEDS: [UNRECOGNIZED DRUG - OTHER] IV (14:52)
[2024-12-20] MEDS: MAGNESIUM SULF IV (14:52)
[2024-12-20] MEDS: POTASSIUM PHOS IV (14:52)
[2024-12-20] MEDS: FAT EMULSIONS 20% IV 500 ML 32 ML IV (17:52)
[2024-12-20] MEDS: INSULIN LISPRO (AdmeLOG) 1 UNIT/0.01 ML UNIT SC (18:03)
--- NOTE | 2024-12-20 19:04 | PD.IMPROG ---
Documentation for date of: 12/20/24 Subjective Subjective Interval history: Patient evaluated Today's abdominal x-ray shows ileus not much drainage to the NGT Exam Vital Signs Temp Pulse Resp BP Pulse Ox O2 Del Method O2 Flow Rate 97.0 F 66 19 126/61 94 L Room Air 2 12/20/24 16:00 12/20/24 16:00 12/20/24 16:00 12/20/24 16:00 12/20/24 16:00 12/20/24 16:00 12/17/24 06:49 Objective Labs 12/20/24 06:35 12/20/24 06:35 Labs: Laboratory Results - last 24 hr 12/20/24 06:35 WBC 4.8 RBC 2.88 L Hgb 8.9 L Hct 26.0 L MCV 90 MCH 30.9 MCHC 34.2 RDW Std Deviation 48.4 H Plt Count 471 H D Neut % (Auto) 74 Lymph % (Auto) 16 [place] % (Auto) 7 Eos % (Auto) 1 Baso % (Auto) 0 Neut # (Auto) 3.6 Lymph # (Auto) 0.8 L [place] # (Auto) 0.4 Eos # (Auto) 0.0 Baso # (Auto) 0.0 Immature Gran # (Auto) 0.05 H Absolute Nucleated RBC 0.00 Immature Gran % 1 H Nucleated RBC % 0 Sodium 138 Potassium 4.0 Chloride 111 H Carbon Dioxide 22.9 Anion Gap 4 L BUN 12 Creatinine 0.4 L Estim Creat Clear Calc 149.2 eGFR > 60 BUN/Creatinine Ratio 30 H Glucose 117 H Calculated Osmolality 276 Calcium 7.9 L Corrected Calcium 9.1 Phosphorus 2.5 Magnesium 1.9 Total Bilirubin 0.3 AST 19 ALT 10 Alkaline Phosphatase 48 Total Protein 5.4 L Albumin 2.5 L Globulin 2.9 Albumin/Globulin Ratio 0.9 L Triglycerides 118 Impressions Impression: Postoperative ileus if patient vomits put the NGT in to intermittent suction ABG Interpretation ABG results: 12/07/24 12/08/24 20:42 07:22 ABG pH 7.44 7.44 ABG pCO2 31 L 33 ABG pO2 68 L 88 D ABG HCO3 21 22 ABG O2 Saturation 95 98 ABG Base Excess -3 -1 Assessment & Plan A&P Narrative 79-year-old male with past medical history of cerebrovascular accident with residual right-sided weakness, aphasia, and dysphagia status post PEG tube placement, pulmonary embolism on Eliquis, GERD, hypertension, hyperlipidemia, and recurrent pneumonia admitted for septic shock likely due to hospital-acquired pneumonia/aspiration pneumonia. #Small Bowel Obstruction Abdominal X-rays and CT abdomen/pelvis showed persistent high-grade small bowel obstruction. NG tube remains unplaced. A 12 [place] NG tube was recommended by Dr. Gutierrez. According to nursing staff, an attempt was made; however, the patient poorly tolerated the procedure, developing coughing and oxygen desaturation during the attempt. Resistance was encountered at 45 cm. Plan - Initiate PPN due to continued NPO status and inability to tolerate NG placement - Change PEG tube drainage method to intermittent suction - Start Metoclopramide 5mg Q12HR - Continue close monitoring for signs of clinical deterioration (increased pain, tachycardia, leukocytosis) - Continue IV fluids to maintain hydration and electrolyte balance - Monitor I/Os, abdominal girth Patient plan of care was discussed with attending physician, Dr. Gutierrez. Cliff Riggs DO PGY-1 Attending attestation patient examined with internal medicine team X-rays reviewed imaging studies reviewed laboratory data reviewed Recommendations are Placement of an NGT with patient with soft restraints to intermittent suction Repeat abdominal x-ray in the morning Agree with PPN Will follow the patient closely There is a lot of stool burden on the left side of the colon Once the ileus/small bowel obstruction resolves We will give the GoLytely to clean the colon out No invasive GI workup planned at the moment Thank you for the opportunity to participate in the care of this patient Time Spent With Patient Time: Total time spent is greater than 50% in coordination of care (as documented) at patient's floor/unit and/or counseling patient:
[2024-12-20] MEDS: ATORVASTATIN CALCIUM 20 MG TABLET 40 MG GT (20:27)
[2024-12-21] VITALS (12 sets, daily range): BP systolic 105–142; BP diastolic 63–70; PULSE 76–92; RESP 17–98; TEMP 36.1–36.6; O2SAT 95–100; BMI 27.4
[2024-12-21] MEDS: LEVALBUTEROL RT 1.25 MG/0.5 ML NEBU INH ×4 (03:09→18:17)
[2024-12-21] MEDS: SODIUM CHLORIDE RT SOL 0.9% 3 ML NEBU INH ×4 (03:09→18:17)
[2024-12-21] MEDS: INSULIN LISPRO (AdmeLOG) 1 UNIT/0.01 ML UNIT SC (05:54)
[2024-12-21 06:20] LABS: Osmolality, Urine* 623 mOsm/kg (50-1200)
[2024-12-21 07:06] LABS: Basophils # (Auto) 0.0 Thou/mm3 (0.0-0.2); Basophils % (Auto) 0 % (0-2.5); Eosinophils # (Auto) 0.0 Thou/mm3 (0.0-0.5); Eosinophils % (Auto) 1 % (0-10); Hematocrit 25.3 % (41.0-53.0); Immature Granulocytes Auto 0.04 Thou/mm3 (0.00-0.00); Lymphocytes # (Auto) 0.7 Thou/mm3 (1.0-4.8); Lymphocytes % (Auto) 14 % (10-50); Mean Corpuscular HGB Conc 34.4 g/dl (31.0-37.0); Mean Corpuscular Hemoglobin 30.9 pg (25.0-35.0); Mean Corpuscular Volume 90 fL (80-100); Monocytes # (Auto) 0.5 Thou/mm3 (0.0-0.8); Monocytes % (Auto) 9 % (0-12); Neutrophils # (Auto) 3.9 Thou/mm3 (1.8-7.7); Neutrophils % (Auto) 76 % (37-80); Nucleated Red Blood Cell # 0.00 Thou/mm3 (0.00-0.00); Nucleated Red Blood Cell % 0 /100 WBC (0); Platelet Count 436 Thou/mm3 (140-440); RDW Standard Deviation 48.2 fL (35.1-43.9); Red Blood Count 2.82 Miln/mm3 (4.50-5.90); White Blood Count 5.1 Thou/mm3 (3.8-10.6)
[2024-12-21 07:08] LABS: Hemoglobin 8.7 g/dL (13.5-16.0)
[2024-12-21 07:25] LABS: Alanine Aminotransferase 10 U/L (10-49); Albumin, Serum 2.4 gm/dL (3.4-4.8); Albumin/Globulin Ratio 0.9 (1.2-2.2); Alkaline Phosphatase 46 U/L (46-116); Anion Gap 11 (7-16); Aspartate Amino Transferase 17 U/L (0-34); BUN/Creatinine Ratio 26 Ratio (12-20); Bilirubin,Total 0.2 mg/dL (0.3-1.2); Blood Urea Nitrogen 13 mg/dL (9-23); Calcium 7.8 mg/dL (8.3-10.6); Calcium (Corrected) 9.1 mg/dL (8.5-10.1); Carbon Dioxide 20.2 mMol/L (20.0-31.0); Chloride 109 mMol/L (98-107); Creatinine (Component) 0.5 mg/dL (0.6-1.3); Estimated Creatinine Clearance 119.4 mL/min (>60); Globulin 2.8 gm/dL (2.3-3.5); Glucose 179 mg/dL (74-106); Magnesium 1.6 mg/dL (1.6-2.6); Osmolality,Calculated 283 (275-295); Phosphorous 2.5 mg/dL (2.4-5.1); Potassium 3.8 mMol/L (3.4-5.1); Sodium 140 mMol/L (136-145); Total Protein 5.2 gm/dL (5.7-8.2); eGFR > 60 See Note
[2024-12-21] MEDS: METOCLOPRAMIDE INJ 5 MG/ML VIAL 2 ML IVP ×2 (08:40→20:26)
[2024-12-21] MEDS: DOXAZOSIN MESYLATE 1 MG TABLET GT (08:41)
[2024-12-21] MEDS: FENOFIBRATE 145 MG TABLET (NON-FORMULARY) GT (08:41)
[2024-12-21] MEDS: ASPIRIN 81 MG CHEW GT (08:42)
[2024-12-21] MEDS: APIXABAN 2.5 MG TABLET 5 MG GT ×2 (08:42→20:34)
[2024-12-21] MEDS: FAMOTIDINE 20 MG TABLET GT (08:44)
--- NOTE | 2024-12-21 13:18 | ESPR_ITS ---
<Statement entered by Tai Aguilar MD - 12/21/24 16:48> Patient was examined and case was reviewed with team including attending physician. Note reviewed, I agree with most of its contents and agree with the patient's care. Patient seen today at the bedside found awake, alert, orientedx3. No overnight events reported. Vitals and labs reviewed. Currently receiving tube feeds at 50 mL/h. Plan is to advance to goal which is 60 mL/h and taper down and discontinue TPN. PICC line order was discontinued as patient is currently tolerating feeds through PEG tube and is currently having bowel movements. We will continue to monitor at this time for further changes. Case discussed with my attending Dr. Ab Aguilar MD PGY-2 Disclaimer: Despite multiple revisions, due to the dictation software being used, the document bellow may not be free of grammatical errors including phonetic/typographic errors. However, this does not deter from our commitment to providing health care in the patient's best interest in mind. Documentation for date of: 12/21/24 Subjective Subjective Interval history: Patient seen and examined at bedside. Patient was somnolent this morning but arousable. Patient endorsed mild abdominal pain. No new complaints. Per nursing staff, had a bowel movement yesterday and this morning. No episodes of nausea or vomiting. PPN and trickle tube feeds were resumed yesterday. Exam Vital Signs Temp Pulse Resp BP Pulse Ox O2 Del Method O2 Flow Rate 97.4 F 91 20 133/63 H 100 Room Air 2 12/21/24 08:00 12/21/24 12:33 12/21/24 12:33 12/21/24 08:41 12/21/24 12:33 12/21/24 08:00 12/17/24 06:49 Narrative Exam Physical Exam General: Alert, somnolent but arousable. HEENT: Normocephalic, atraumatic, mucous membranes moist. Heart: Regular rate and rhythm, no murmurs. Lungs: Diminished breath sounds, no distress. Abdomen: Soft, mildly tender, mild distention Neurologic: A&O x1, right facial droop and hemiplegia (baseline) Extremities: Right UE edema Skin: No rash or ecchymoses. Objective Labs 12/23/24 05:15 12/23/24 05:15 Labs: Laboratory Results - last 24 hr 12/15/24 12/21/24 05:29 06:49 WBC 5.1 RBC 2.82 L Hgb 8.7 L Hct 25.3 L MCV 90 MCH 30.9 MCHC 34.4 RDW Std Deviation 48.2 H Plt Count 436 D Neut % (Auto) 76 Lymph % (Auto) 14 [place] % (Auto) 9 Eos % (Auto) 1 Baso % (Auto) 0 Neut # (Auto) 3.9 Lymph # (Auto) 0.7 L [place] # (Auto) 0.5 Eos # (Auto) 0.0 Baso # (Auto) 0.0 Immature Gran # (Auto) 0.04 H Absolute Nucleated RBC 0.00 Immature Gran % 1 H Nucleated RBC % 0 Sodium 140 Potassium 3.8 Chloride 109 H Carbon Dioxide 20.2 Anion Gap 11 BUN 13 Creatinine 0.5 L Estim Creat Clear Calc 119.4 eGFR > 60 BUN/Creatinine Ratio 26 H Glucose 179 H D Calculated Osmolality 283 Calcium 7.8 L Corrected Calcium 9.1 Phosphorus 2.5 Magnesium 1.6 Total Bilirubin 0.2 L AST 17 ALT 10 Alkaline Phosphatase 46 Total Protein 5.2 L Albumin 2.4 L Globulin 2.8 Albumin/Globulin Ratio 0.9 L Urine Osmolality 623 ABG Interpretation ABG results: 12/07/24 12/08/24 20:42 07:22 ABG pH 7.44 7.44 ABG pCO2 31 L 33 ABG pO2 68 L 88 D ABG HCO3 21 22 ABG O2 Saturation 95 98 ABG Base Excess -3 -1 Quality Measures Quality Measures VTE prophylaxis Advance care planning discussed with:: patient and spouse Assessment & Plan Assessment Current Active Medications: Generic Name Dose Route Start Last Admin Trade Name Freq PRN Reason Stop Dose Admin Acetaminophen 650 mg 12/07/24 22:27 12/17/24 20:29 Acetaminophen Gisele 325 Mg/10 Ml Udc GT 01/06/25 22:26 650 mg Q4HR PRN Administration Pain Or Fever > 100 Protocol Apixaban 5 mg 12/10/24 09:45 12/21/24 08:42 Apixaban 2.5 Mg Tablet GT 01/09/25 09:44 5 mg BID RE Administration Aspirin 81 mg 12/08/24 09:00 12/21/24 08:42 Aspirin 81 Mg Chew GT 01/07/25 08:59 81 mg QDAY RE Administration Atorvastatin Calcium 40 mg 12/08/24 21:00 12/20/24 20:27 Atorvastatin Calcium 20 Mg Tablet GT 01/07/25 20:59 40 mg HS RE Administration Bisacodyl 10 mg 12/08/24 14:05 Bisacodyl 10 Mg Supp ND 01/07/25 14:04 QDAY PRN CONSTIPATION Protocol Dextrose 25 ml 12/15/24 10:03 Dextrose 50%-Water Inj 50 Ml Syringe IV 01/14/25 10:02 Q15MIN PRN BG 50-70 responsive npo pt Dextrose 50 ml 12/15/24 10:03 Dextrose 50%-Water Inj 50 Ml Syringe IV 01/14/25 10:02 Q15MIN PRN BG <50 OR BG <70 & pt unresponsive Doxazosin Mesylate 1 mg 12/08/24 09:00 12/21/24 08:41 Doxazosin Mesylate 1 Mg Tablet GT 01/07/25 08:59 1 mg QDAY RE Administration Famotidine 20 mg 12/08/24 09:00 12/21/24 08:44 Famotidine 20 Mg Tablet GT 01/07/25 08:59 20 mg QDAY RE Administration Fenofibrate 145 mg 12/08/24 09:00 12/21/24 08:41 Fenofibrate 145 Mg Tablet (Non-Formulary) GT 01/07/25 08:59 145 mg QDAY RE Administration Glucagon 1 mg 12/15/24 10:03 Glucagon Inj 1 Mg Vial IM Q15MIN PRN BG <70, and no IV access Fat Emulsion Intravenous 500 mls @ 32 mls/hr 12/13/24 18:00 12/20/24 17:52 Intralipid 20% Iv IV 01/12/25 17:59 32 mls/hr TUTHSA@1800 RE Administration Potassium Acetate 30 meq/ 2,039 mls @ 35 mls/hr 12/20/24 15:30 12/20/24 14:52 Potassium Phosphate 30 mmol/ IV 12/23/24 01:45 35 mls/hr Magnesium Sulfate 2 gm/ QDAY@1530 ONE Administration Calcium Gluconate 1 gm/ Amino Acids Insulin Human Lispro 0 unit 12/15/24 12:00 12/21/24 05:54 Insulin Lispro (Admelog) 1 Unit/0.01 Ml Unit SC 01/14/25 11:59 1 unit Q6HR RE Administration Protocol Ketorolac Tromethamine 30 mg 12/19/24 11:44 12/20/24 09:01 Ketorolac Inj 30 Mg/Ml Vial IVP 12/24/24 11:43 30 mg Q6HR PRN Administration PAIN Protocol Levalbuterol HCl 1.25 mg 12/08/24 01:00 12/21/24 12:33 Levalbuterol Rt 1.25 Mg/0.5 Ml Nebu INH 01/07/25 00:59 1.25 mg Q6HRRT RE Administration Metoclopramide HCl 5 mg 12/12/24 21:00 12/21/24 08:40 Metoclopramide Inj 5 Mg/Ml Vial 2 Ml IVP 01/11/25 20:59 5 mg Q12HR RE Administration Protocol Ondansetron HCl 4 mg 12/07/24 22:12 12/11/24 01:09 Ondansetron Inj 2 Mg/Ml Inj 2 Ml IVP 01/06/25 22:11 4 mg Q6H PRN Administration NAUSEA OR VOMITING Protocol Oxcarbazepine 300 mg 12/08/24 09:00 12/21/24 08:41 Oxcarbazepine 150 Mg Tablet GT 01/07/25 08:59 300 mg BID RE Administration Pantoprazole Sodium 40 mg 12/10/24 10:30 12/21/24 08:39 Pantoprazole Inj 40 Mg Vial IVP 01/09/25 10:29 40 mg QDAY RE Administration Sennosides 8.8 mg 12/08/24 08:13 12/20/24 08:57 Sennosides Syrup 8.8 Mg/5 Ml Udc GT 01/07/25 08:06 8.8 mg QDAY PRN Administration CONSTIPATION Protocol Sodium Chloride 3 ml 12/07/24 22:12 12/21/24 12:33 Sodium Chloride Rt Gisele 0.9% 3 Ml Nebu INH 01/06/25 22:11 3 ml PRN PRN Administration SOLN Plan 79-year-old male with PMH of CVA with PEG, recurrent pneumonia, and PE on Eliquis, s/p ex-lap with small bowel resection and ileal-ileal anastomosis (12/16), now post-op day 5 with improving abdominal pain and has resumed bowel function. #Small Bowel Obstruction s/p Ex-Lap with Resection (12/16) Post-op day 5 from ileal-ileal anastomosis for necrotic distal ileum causing SBO. Improving GI motility with bowel movements yesterday and this morning. Plan: - Continue trickle PEG tube feeds (plan to increase from 40 mL to 50 mL/hr) - Continue PPN until full feeds tolerated - Monitor for recurrent abdominal distension, vomiting, or feeding intolerance - Check I/Os and daily weights - Continue Senna PRN for bowel regimen #Post-op Monitoring Now POD5 from ex-lap + bowel resection Hgb stable (10.6 -> 9.7 -> 9.0->8.2->8.7 ->8.9 -> 8.7) without overt bleeding No fever or leukocytosis PEG patent, on trickle feeds Plan: - Continue close post-op monitoring - Monitor CBC daily - Continue pain control PRN - Notify surgery if new signs of leak or peritonitis #Electrolyte Abnormalities K 4.0 -> 3.8 (stable) Phos 2.5 Mag 1.9 -> 1.6 Na 140 Ca 7.9 -> 7.8 (stable) Alb 2.4 chronically low Plan: - Monitor BMP, Mag, Phos - Continue repletion PRN #Right Upper Extremity Swelling (DVT ruled out) RUE edema stable --> venous Doppler negative (12/17) for DVT Plan: - Monitor swelling - Elevate limb - Reassess for any signs of cellulitis or other causes #Abdominal Pain (Post op) Expected mild post-op discomfort Plan: - Continue PRN IV Tylenol - Monitor response and reassess daily #Respiratory Status (stable) Room air, no new findings Plan: - Continue nebulizers PRN - Monitor for signs of decompensation #Anemia (normocytic, stable) Hgb stable (10.6 -> 9.7 -> 9.0->8.2->8.7 ->8.9 -> 8.7) without overt bleeding Plan: - Monitor CBC - No transfusion needed at this time #History of PE Eliquis was held for ex lap on12/16 but has been resumed since 12/17 Plan: - Continue Eliquis - Monitor Hgb, signs of bleeding #CVA with PEG, aphasia, hemiplegia Mentation improved Plan: - Maintain aspiration precautions - Reposition Q2H - Resume medications via PEG as appropriate #Chronic Conditions ? HTN, HLD, GERD, cocci Stable Plan: Continue atorvastatin, Protonix IV Hold non-essential meds Health Maintenance: Disposition: Telemetry Diet: PPN and trickle feed DVT Prophylaxis: Eliquis GI Prophylaxis: Protonix IV Lines: PIV PEG: In place, draining to gravity O2: Room air Code Status: DNR Patient plan of care was discussed with the senior resident, Dr. Lenin Aguilar and attending physician, Dr. Berger . Cliff Riggs, DO PGY-1
--- NOTE | 2024-12-21 15:24 | PD.SURPROG ---
Documentation for date of: 12/21/24 Subjective Subjective Brief History: 79M with HTN, HLD, hx of CVA leading to R sided weakness, aphasia and dysphagia s/p PEG, PE on eliquis and recurrent pneumonia who was admitted 12/08 from [facility] for shortness of breath, being treated for recurrent pneumonia. On admission pt underwent AXR read as SBO but has been having BMs, yesterday underwent attempted small bowel series but he vomited after receiving gastrografin. Pt did have an NG in place last night but he removed it and on my exam RN was in the process of replacing it. She reported he had a large BM today and has not had any vomiting PMH: HTN, HLD, PE, GERD, CVA PSHx: PEG Meds: includes eliquis Narrative: Pt had two BMs yesterday and one today, remaining afebrile with normal WBC, tube feeds were started yesterday and advancing today Exam Vital Signs Temp Pulse Resp BP Pulse Ox O2 Del Method O2 Flow Rate 97.0 F 91 20 105/63 100 Room Air 2 12/21/24 12:00 12/21/24 12:33 12/21/24 12:33 12/21/24 12:00 12/21/24 12:33 12/21/24 12:00 12/17/24 06:49 Constitutional Constitutional: no acute distress Routine Respiratory Exam Respiratory: Present no resp distress Routine Abdominal Exam Abdominal: Present soft; Absent tenderness or distended Results Results: Laboratory Laboratory results: results reviewed Assessment & Plan Plan 79M with HTN, HLD, hx of CVA leading to R sided weakness, aphasia and dysphagia s/p PEG, PE on eliquis and recurrent pneumonia who was admitted 12/08 from [facility] for shortness of breath, being treated for recurrent pneumonia, with radiographic findings of SBO refractory to conservative management, now status post laparotomy, small bowel resection and ileal ileal anastomosis 12/16, with signs of postoperative ileus at first now showing signs of return to bowel function Advance tube feeds to goal PROCEDURES: Procedures Exploratory laparotomy, small bowel resection, ileal ileal anastomosis
--- NOTE | 2024-12-21 17:06 | CHAP ---
Visit was made by the Spiritual Care Volunteer who prayed silently for them. (Volunteer was in the hospital from 15:10-17:06)
--- NOTE | 2024-12-21 17:29 | PC.SS ---
SS UPDATE: PLAN IS TO ADVANCE TUBE FEEDS, DC PLAN TO RETURN TO [facility] AT D/C.
--- NOTE | 2024-12-21 19:03 | ESPR_ITS ---
Documentation for date of: 12/21/24 Subjective Subjective Interval history: Small bowel function improving Start the PEG feeding there is enteral hyperalimentation Monitor gastric residue Exam Vital Signs Temp Pulse Resp BP Pulse Ox O2 Del Method O2 Flow Rate 97.4 F 84 19 124/69 97 Room Air 2 12/21/24 16:00 12/21/24 16:00 12/21/24 16:00 12/21/24 16:00 12/21/24 16:00 12/21/24 16:00 12/17/24 06:49 Objective Labs 12/21/24 06:49 12/21/24 06:49 Labs: Laboratory Results - last 24 hr 12/15/24 12/21/24 05:29 06:49 WBC 5.1 RBC 2.82 L Hgb 8.7 L Hct 25.3 L MCV 90 MCH 30.9 MCHC 34.4 RDW Std Deviation 48.2 H Plt Count 436 D Neut % (Auto) 76 Lymph % (Auto) 14 [place] % (Auto) 9 Eos % (Auto) 1 Baso % (Auto) 0 Neut # (Auto) 3.9 Lymph # (Auto) 0.7 L [place] # (Auto) 0.5 Eos # (Auto) 0.0 Baso # (Auto) 0.0 Immature Gran # (Auto) 0.04 H Absolute Nucleated RBC 0.00 Immature Gran % 1 H Nucleated RBC % 0 Sodium 140 Potassium 3.8 Chloride 109 H Carbon Dioxide 20.2 Anion Gap 11 BUN 13 Creatinine 0.5 L Estim Creat Clear Calc 119.4 eGFR > 60 BUN/Creatinine Ratio 26 H Glucose 179 H D Calculated Osmolality 283 Calcium 7.8 L Corrected Calcium 9.1 Phosphorus 2.5 Magnesium 1.6 Total Bilirubin 0.2 L AST 17 ALT 10 Alkaline Phosphatase 46 Total Protein 5.2 L Albumin 2.4 L Globulin 2.8 Albumin/Globulin Ratio 0.9 L Urine Osmolality 623 Impressions Impression: Small bowel obstruction status post exploratory laparotomy small bowel resection and ileal ileal anastomosis Resolving postoperative ileus Advanced enteral hyperalimentation via the PEG tube ABG Interpretation ABG results: 12/07/24 12/08/24 20:42 07:22 ABG pH 7.44 7.44 ABG pCO2 31 L 33 ABG pO2 68 L 88 D ABG HCO3 21 22 ABG O2 Saturation 95 98 ABG Base Excess -3 -1 Assessment & Plan A&P Narrative 79-year-old male with past medical history of cerebrovascular accident with residual right-sided weakness, aphasia, and dysphagia status post PEG tube placement, pulmonary embolism on Eliquis, GERD, hypertension, hyperlipidemia, and recurrent pneumonia admitted for septic shock likely due to hospital- acquired pneumonia/aspiration pneumonia. #Small Bowel Obstruction Abdominal X-rays and CT abdomen/pelvis showed persistent high-grade small bowel obstruction. NG tube remains unplaced. A 12 [place] NG tube was recommended by Dr. Gutierrez. According to nursing staff, an attempt was made; however, the patient poorly tolerated the procedure, developing coughing and oxygen desaturation during the attempt. Resistance was encountered at 45 cm. Plan - Initiate PPN due to continued NPO status and inability to tolerate NG placement - Change PEG tube drainage method to intermittent suction - Start Metoclopramide 5mg Q12HR - Continue close monitoring for signs of clinical deterioration (increased pain, tachycardia, leukocytosis) - Continue IV fluids to maintain hydration and electrolyte balance - Monitor I/Os, abdominal girth Patient plan of care was discussed with attending physician, Dr. Gutierrez. Cliff Riggs DO PGY-1 Attending attestation patient examined with internal medicine team X-rays reviewed imaging studies reviewed laboratory data reviewed Recommendations are Placement of an NGT with patient with soft restraints to intermittent suction Repeat abdominal x-ray in the morning Agree with PPN Will follow the patient closely There is a lot of stool burden on the left side of the colon Once the ileus/small bowel obstruction resolves We will give the GoLytely to clean the colon out No invasive GI workup planned at the moment Thank you for the opportunity to participate in the care of this patient Time Spent With Patient Time: Total time spent is greater than 50% in coordination of care (as documented) at patient's floor/unit and/or counseling patient:
[2024-12-21] MEDS: ATORVASTATIN CALCIUM 20 MG TABLET 40 MG GT (20:26)
[2024-12-22] VITALS (11 sets, daily range): BP systolic 112–135; BP diastolic 61–80; PULSE 74–88; RESP 16–96; TEMP 36.1–36.3; O2SAT 95–99; BMI 25.2
[2024-12-22] MEDS: SODIUM CHLORIDE RT SOL 0.9% 3 ML NEBU INH ×2 (00:30→19:32)
[2024-12-22] MEDS: LEVALBUTEROL RT 1.25 MG/0.5 ML NEBU INH ×3 (00:30→19:32)
[2024-12-22 05:27] LABS: Basophils # (Auto) 0.0 Thou/mm3 (0.0-0.2); Basophils % (Auto) 0 % (0-2.5); Eosinophils # (Auto) 0.0 Thou/mm3 (0.0-0.5); Eosinophils % (Auto) 1 % (0-10); Hematocrit 26.2 % (41.0-53.0); Immature Granulocytes Auto 0.03 Thou/mm3 (0.00-0.00); Lymphocytes # (Auto) 0.8 Thou/mm3 (1.0-4.8); Lymphocytes % (Auto) 16 % (10-50); Mean Corpuscular HGB Conc 33.2 g/dl (31.0-37.0); Mean Corpuscular Hemoglobin 30.3 pg (25.0-35.0); Mean Corpuscular Volume 91 fL (80-100); Monocytes # (Auto) 0.4 Thou/mm3 (0.0-0.8); Monocytes % (Auto) 9 % (0-12); Neutrophils # (Auto) 3.6 Thou/mm3 (1.8-7.7); Neutrophils % (Auto) 74 % (37-80); Nucleated Red Blood Cell # 0.00 Thou/mm3 (0.00-0.00); Nucleated Red Blood Cell % 0 /100 WBC (0); Platelet Count 344 Thou/mm3 (140-440); RDW Standard Deviation 51.1 fL (35.1-43.9); Red Blood Count 2.87 Miln/mm3 (4.50-5.90); White Blood Count 4.9 Thou/mm3 (3.8-10.6)
[2024-12-22 05:30] LABS: Hemoglobin 8.7 g/dL (13.5-16.0)
[2024-12-22 06:09] LABS: Alanine Aminotransferase 11 U/L (10-49); Albumin, Serum 2.5 gm/dL (3.4-4.8); Albumin/Globulin Ratio 0.9 (1.2-2.2); Alkaline Phosphatase 50 U/L (46-116); Anion Gap 9 (7-16); Aspartate Amino Transferase 22 U/L (0-34); BUN/Creatinine Ratio 28 Ratio (12-20); Bilirubin,Total 0.2 mg/dL (0.3-1.2); Blood Urea Nitrogen 11 mg/dL (9-23); Calcium 7.9 mg/dL (8.3-10.6); Calcium (Corrected) 9.1 mg/dL (8.5-10.1); Carbon Dioxide 19.7 mMol/L (20.0-31.0); Chloride 112 mMol/L (98-107); Creatinine (Component) 0.4 mg/dL (0.6-1.3); Estimated Creatinine Clearance 137.3 mL/min (>60); Globulin 2.7 gm/dL (2.3-3.5); Glucose 103 mg/dL (74-106); Magnesium 1.5 mg/dL (1.6-2.6); Osmolality,Calculated 280 (275-295); Phosphorous 3.1 mg/dL (2.4-5.1); Potassium 3.9 mMol/L (3.4-5.1); Sodium 141 mMol/L (136-145); Total Protein 5.2 gm/dL (5.7-8.2); eGFR > 60 See Note
[2024-12-22] MEDS: APIXABAN 2.5 MG TABLET 5 MG GT ×2 (09:04→20:31)
[2024-12-22] MEDS: FENOFIBRATE 145 MG TABLET (NON-FORMULARY) GT (09:04)
[2024-12-22] MEDS: ASPIRIN 81 MG CHEW GT (09:04)
[2024-12-22] MEDS: FAMOTIDINE 20 MG TABLET GT (09:04)
[2024-12-22] MEDS: DOXAZOSIN MESYLATE 1 MG TABLET GT (09:04)
[2024-12-22] MEDS: METOCLOPRAMIDE INJ 5 MG/ML VIAL 2 ML IVP ×2 (09:05→20:27)
--- NOTE | 2024-12-22 09:30 | PC.NURSE ---
DR. WHEELER AT BEDSIDE, VERBAL ORDER TO REMOVE RESTRAIN 0930 AM.
--- NOTE | 2024-12-22 11:22 | PD.SURPROG ---
Documentation for date of: 12/22/24 Subjective Subjective Brief History: 79M with HTN, HLD, hx of CVA leading to R sided weakness, aphasia and dysphagia s/p PEG, PE on eliquis and recurrent pneumonia who was admitted 12/08 from [facility] for shortness of breath, being treated for recurrent pneumonia. On admission pt underwent AXR read as SBO but has been having BMs, yesterday underwent attempted small bowel series but he vomited after receiving gastrografin. Pt did have an NG in place last night but he removed it and on my exam RN was in the process of replacing it. She reported he had a large BM today and has not had any vomiting PMH: HTN, HLD, PE, GERD, CVA PSHx: PEG Meds: includes eliquis Narrative: Tolerating tube feeds with no residuals, had a large BM today, remaining afebrile with normal WBC Exam Vital Signs Temp Pulse Resp BP Pulse Ox O2 Del Method O2 Flow Rate 97.0 F 74 20 135/70 H 98 Room Air 2 12/22/24 08:00 12/22/24 09:04 12/22/24 08:00 12/22/24 09:04 12/22/24 08:00 12/22/24 08:00 12/17/24 06:49 Constitutional Constitutional: no acute distress Routine Respiratory Exam Respiratory: Present no resp distress Routine Abdominal Exam Abdominal: Present soft; Absent tenderness or distended Results Results: Laboratory Laboratory Narrative: Pathology of small bowel reviewed Laboratory results: results reviewed Assessment & Plan Plan 79M with HTN, HLD, hx of CVA leading to R sided weakness, aphasia and dysphagia s/p PEG, PE on eliquis and recurrent pneumonia who was admitted 12/08 from [facility] for shortness of breath, being treated for recurrent pneumonia, with radiographic findings of SBO refractory to conservative management, now status post laparotomy, small bowel resection and ileal ileal anastomosis 12/16, with signs of postoperative ileus at first now showing signs of return to bowel function OK from my standpoint for dc Will remove micehlle 2-3 weeks postop PROCEDURES: Procedures Exploratory laparotomy, small bowel resection, ileal ileal anastomosis
--- NOTE | 2024-12-22 12:05 | ESPR_ITS ---
<Statement entered by Piedad Berger MD - 01/02/25 13:46> I reviewed above note and agree with findings and plans. I have also personally examined the patient with medicine team and went over assessment and plan with medical team including international coordinator and resident physician. <Statement entered by Tai Aguilar MD - 12/23/24 00:11> Patient was examined and case was reviewed with team including attending physician. Note reviewed, I agree with most of its contents and agree with the patient's care. Patient seen today at the bedside. Vitals and labs reviewed. Patient's tube feeds have been advanced to goal original plan was to discharge the patient today however patient was physically restrained. Patient currently resting comfortably and restraints were discontinued. Plan is to discharge patient in the morning. Case discussed with my attending Dr. Ab Aguilar MD PGY-2 Documentation for date of: 12/22/24 Subjective Subjective Interval history: Patient seen and examined at bedside. Patient was sleeping comfortably, somnolent but arousable. Patient had a large bowel movement this morning. No new complaints. No episodes of nausea or vomiting. Patient is tolerating tube feeds at 65 mL/hr. Exam Vital Signs Temp Pulse Resp BP Pulse Ox O2 Del Method O2 Flow Rate 97.0 F 74 20 135/70 H 98 Room Air 2 12/22/24 08:00 12/22/24 09:04 12/22/24 08:00 12/22/24 09:04 12/22/24 08:00 12/22/24 08:00 12/17/24 06:49 Narrative Exam Physical Exam General: Alert, somnolent but arousable. HEENT: Normocephalic, atraumatic, mucous membranes moist. Heart: Regular rate and rhythm, no murmurs. Lungs: Diminished breath sounds, no distress. Abdomen: Soft, mildly tender, non-distended. Neurologic: A&O x1, right facial droop and hemiplegia (baseline). Extremities: Right UE edema. Skin: No rash or ecchymoses. Objective Labs 12/22/24 04:40 12/22/24 04:40 Labs: Laboratory Results - last 24 hr 12/22/24 04:40 WBC 4.9 RBC 2.87 L Hgb 8.7 L Hct 26.2 L MCV 91 MCH 30.3 MCHC 33.2 RDW Std Deviation 51.1 H Plt Count 344 D Neut % (Auto) 74 Lymph % (Auto) 16 [place] % (Auto) 9 Eos % (Auto) 1 Baso % (Auto) 0 Neut # (Auto) 3.6 Lymph # (Auto) 0.8 L [place] # (Auto) 0.4 Eos # (Auto) 0.0 Baso # (Auto) 0.0 Immature Gran # (Auto) 0.03 H Absolute Nucleated RBC 0.00 Immature Gran % 1 H Nucleated RBC % 0 Sodium 141 Potassium 3.9 Chloride 112 H Carbon Dioxide 19.7 L Anion Gap 9 BUN 11 Creatinine 0.4 L Estim Creat Clear Calc 137.3 eGFR > 60 BUN/Creatinine Ratio 28 H Glucose 103 D Calculated Osmolality 280 Calcium 7.9 L Corrected Calcium 9.1 Phosphorus 3.1 Magnesium 1.5 L Total Bilirubin 0.2 L AST 22 ALT 11 Alkaline Phosphatase 50 Total Protein 5.2 L Albumin 2.5 L Globulin 2.7 Albumin/Globulin Ratio 0.9 L ABG Interpretation ABG results: 12/07/24 12/08/24 20:42 07:22 ABG pH 7.44 7.44 ABG pCO2 31 L 33 ABG pO2 68 L 88 D ABG HCO3 21 22 ABG O2 Saturation 95 98 ABG Base Excess -3 -1 Quality Measures Quality Measures VTE prophylaxis Advance care planning discussed with:: patient Assessment & Plan Assessment Current Active Medications: Generic Name Dose Route Start Last Admin Trade Name Freq PRN Reason Stop Dose Admin Acetaminophen 650 mg 12/07/24 22:27 12/17/24 20:29 Acetaminophen Gisele 325 Mg/10 Ml Udc GT 01/06/25 22:26 650 mg Q4HR PRN Administration Pain Or Fever > 100 Protocol Apixaban 5 mg 12/10/24 09:45 12/22/24 09:04 Apixaban 2.5 Mg Tablet GT 01/09/25 09:44 5 mg BID RE Administration Aspirin 81 mg 12/08/24 09:00 12/22/24 09:04 Aspirin 81 Mg Chew GT 01/07/25 08:59 81 mg QDAY RE Administration Atorvastatin Calcium 40 mg 12/08/24 21:00 12/21/24 20:26 Atorvastatin Calcium 20 Mg Tablet GT 01/07/25 20:59 40 mg HS RE Administration Bisacodyl 10 mg 12/08/24 14:05 Bisacodyl 10 Mg Supp MA 01/07/25 14:04 QDAY PRN CONSTIPATION Protocol Dextrose 25 ml 12/15/24 10:03 Dextrose 50%-Water Inj 50 Ml Syringe IV 01/14/25 10:02 Q15MIN PRN BG 50-70 responsive npo pt Dextrose 50 ml 12/15/24 10:03 Dextrose 50%-Water Inj 50 Ml Syringe IV 01/14/25 10:02 Q15MIN PRN BG <50 OR BG <70 & pt unresponsive Doxazosin Mesylate 1 mg 12/08/24 09:00 12/22/24 09:04 Doxazosin Mesylate 1 Mg Tablet GT 01/07/25 08:59 1 mg QDAY RE Administration Famotidine 20 mg 12/08/24 09:00 12/22/24 09:04 Famotidine 20 Mg Tablet GT 01/07/25 08:59 20 mg QDAY RE Administration Fenofibrate 145 mg 12/08/24 09:00 12/22/24 09:04 Fenofibrate 145 Mg Tablet (Non-Formulary) GT 01/07/25 08:59 145 mg QDAY RE Administration Glucagon 1 mg 12/15/24 10:03 Glucagon Inj 1 Mg Vial IM Q15MIN PRN BG <70, and no IV access Fat Emulsion Intravenous 500 mls @ 32 mls/hr 12/13/24 18:00 12/20/24 17:52 Intralipid 20% Iv IV 01/12/25 17:59 32 mls/hr TUTHSA@1800 RE Administration Insulin Human Lispro 0 unit 12/15/24 12:00 12/22/24 05:01 Insulin Lispro (Admelog) 1 Unit/0.01 Ml Unit SC 01/14/25 11:59 Not Given Q6HR RE Protocol Ketorolac Tromethamine 30 mg 12/19/24 11:44 12/20/24 09:01 Ketorolac Inj 30 Mg/Ml Vial IVP 12/24/24 11:43 30 mg Q6HR PRN Administration PAIN Protocol Levalbuterol HCl 1.25 mg 12/08/24 01:00 12/22/24 07:23 Levalbuterol Rt 1.25 Mg/0.5 Ml Nebu INH 01/07/25 00:59 Not Given Q6HRRT RE Metoclopramide HCl 5 mg 12/12/24 21:00 12/22/24 09:05 Metoclopramide Inj 5 Mg/Ml Vial 2 Ml IVP 01/11/25 20:59 5 mg Q12HR RE Administration Protocol Ondansetron HCl 4 mg 12/07/24 22:12 12/11/24 01:09 Ondansetron Inj 2 Mg/Ml Inj 2 Ml IVP 01/06/25 22:11 4 mg Q6H PRN Administration NAUSEA OR VOMITING Protocol Oxcarbazepine 300 mg 12/08/24 09:00 12/22/24 09:04 Oxcarbazepine 150 Mg Tablet GT 01/07/25 08:59 300 mg BID RE Administration Pantoprazole Sodium 40 mg 12/10/24 10:30 12/22/24 09:03 Pantoprazole Inj 40 Mg Vial IVP 01/09/25 10:29 40 mg QDAY RE Administration Sennosides 8.8 mg 12/08/24 08:13 12/20/24 08:57 Sennosides Syrup 8.8 Mg/5 Ml Udc GT 01/07/25 08:06 8.8 mg QDAY PRN Administration CONSTIPATION Protocol Sodium Chloride 3 ml 12/07/24 22:12 12/22/24 00:30 Sodium Chloride Rt Gisele 0.9% 3 Ml Nebu INH 01/06/25 22:11 3 ml PRN PRN Administration SOLN Plan 79 year-old male with past medical history of CVA with PEG tube, recurrent pneumonia, and PE on Eliquis, s/p ex-lap with small bowel resection and ileal- ileal anastomosis (12/16), now post-op day 6 with improving abdominal pain and has resumed bowel function. #Small Bowel Obstruction s/p Ex-Lap with Resection (12/16) Post-op day 6 from ileal-ileal anastomosis for necrotic distal ileum causing SBO. Improving GI motility with bowel movements Plan: - Continue trickle PEG tube feeds at 65mL/h (at goal) - Gen surg has cleared the patient for discharge - Plan to discharge tomorrow (12/23), needs to be off restraints for 24 hours - Continue PPN until full feeds tolerated - Monitor for recurrent abdominal distension, vomiting, or feeding intolerance - Check I/Os and daily weights - Continue Senna PRN for bowel regimen #Post-op Monitoring Now POD6 from ex-lap + bowel resection Hgb stable (10.6 -> 9.7 -> 9.0->8.2->8.7 ->8.9 -> 8.7) without overt bleeding No fever or leukocytosis PEG patent, on trickle feeds Plan: - Continue close post-op monitoring - Monitor CBC daily - Continue pain control PRN - Notify surgery if new signs of leak or peritonitis #Electrolyte Abnormalities K 3.8 --> 3.9 (stable) Phos 2.5 --> 3.1 Mag 1.6 --> 1.5 Ca 7.8 --> 7.9 (stable) Alb 2.4 chronically low Plan: - Monitor BMP, Mag, Phos - Continue repletion PRN #Right Upper Extremity Swelling (DVT ruled out) RUE edema stable --> venous Doppler negative (12/17) for DVT Plan: - Monitor swelling - Elevate limb - Reassess for any signs of cellulitis or other causes #Abdominal Pain (Post op) Expected mild post-op discomfort Plan: - Continue PRN IV Tylenol - Monitor response and reassess daily #Respiratory Status (stable) Room air, no new findings Plan: - Continue nebulizers PRN - Monitor for signs of decompensation #Anemia (normocytic, low and stable) Hgb stable (10.6 -> 9.7 -> 9.0->8.2->8.7 ->8.9 -> 8.7) without overt bleeding Plan: - Monitor CBC - No transfusion needed at this time #History of PE Eliquis was held for ex lap on 12/16 but has been resumed since 12/17 Plan: - Continue Eliquis - Monitor Hgb, signs of bleeding #CVA with PEG, aphasia, hemiplegia Mentation improved Plan: - Maintain aspiration precautions - Reposition Q2H - Resume medications via PEG as appropriate #Chronic Conditions - HTN, HLD, GERD, cocci Stable Plan: - Continue atorvastatin, Protonix IV - Hold non-essential meds Health Maintenance: Disposition: Telemetry; plan to discharge tomorrow morning (12/23) - needs to be off restraints for 24 hours Diet: PPN and trickle feed DVT Prophylaxis: Eliquis GI Prophylaxis: Protonix IV Lines: PIV PEG: In place, draining to gravity O2: Room air Code Status: DNR Patient plan of care was discussed with the senior resident, Dr. Lenin Aguilar and attending physician, Dr. Berger . Cliff Riggs, PGY-1
--- NOTE | 2024-12-22 16:56 | PD.IMPROG ---
Documentation for date of: 12/22/24 Subjective Subjective Interval history: Had a large bowel movement this morning at his maximal rate of enteral feeding at 65 cc an hour and no gastric residue issues and no nausea vomiting Exam Vital Signs Temp Pulse Resp BP Pulse Ox O2 Del Method O2 Flow Rate 97.1 F 83 20 127/63 95 Room Air 2 12/22/24 16:00 12/22/24 16:00 12/22/24 16:00 12/22/24 16:00 12/22/24 16:00 12/22/24 16:00 12/17/24 06:49 Objective Labs 12/22/24 04:40 12/22/24 04:40 Labs: Laboratory Results - last 24 hr 12/22/24 04:40 WBC 4.9 RBC 2.87 L Hgb 8.7 L Hct 26.2 L MCV 91 MCH 30.3 MCHC 33.2 RDW Std Deviation 51.1 H Plt Count 344 D Neut % (Auto) 74 Lymph % (Auto) 16 [place] % (Auto) 9 Eos % (Auto) 1 Baso % (Auto) 0 Neut # (Auto) 3.6 Lymph # (Auto) 0.8 L [place] # (Auto) 0.4 Eos # (Auto) 0.0 Baso # (Auto) 0.0 Immature Gran # (Auto) 0.03 H Absolute Nucleated RBC 0.00 Immature Gran % 1 H Nucleated RBC % 0 Sodium 141 Potassium 3.9 Chloride 112 H Carbon Dioxide 19.7 L Anion Gap 9 BUN 11 Creatinine 0.4 L Estim Creat Clear Calc 137.3 eGFR > 60 BUN/Creatinine Ratio 28 H Glucose 103 D Calculated Osmolality 280 Calcium 7.9 L Corrected Calcium 9.1 Phosphorus 3.1 Magnesium 1.5 L Total Bilirubin 0.2 L AST 22 ALT 11 Alkaline Phosphatase 50 Total Protein 5.2 L Albumin 2.5 L Globulin 2.7 Albumin/Globulin Ratio 0.9 L Impressions Impression: Small bowel obstruction s/p resection and ileal ileal anastomosis Doing well postoperatively Continue enteral feeding ABG Interpretation ABG results: 12/07/24 12/08/24 20:42 07:22 ABG pH 7.44 7.44 ABG pCO2 31 L 33 ABG pO2 68 L 88 D ABG HCO3 21 22 ABG O2 Saturation 95 98 ABG Base Excess -3 -1 Assessment & Plan A&P Narrative 79-year-old male with past medical history of cerebrovascular accident with residual right-sided weakness, aphasia, and dysphagia status post PEG tube placement, pulmonary embolism on Eliquis, GERD, hypertension, hyperlipidemia, and recurrent pneumonia admitted for septic shock likely due to hospital-acquired pneumonia/aspiration pneumonia. #Small Bowel Obstruction Abdominal X-rays and CT abdomen/pelvis showed persistent high-grade small bowel obstruction. NG tube remains unplaced. A 12 [place] NG tube was recommended by Dr. Gutierrez. According to nursing staff, an attempt was made; however, the patient poorly tolerated the procedure, developing coughing and oxygen desaturation during the attempt. Resistance was encountered at 45 cm. Plan - Initiate PPN due to continued NPO status and inability to tolerate NG placement - Change PEG tube drainage method to intermittent suction - Start Metoclopramide 5mg Q12HR - Continue close monitoring for signs of clinical deterioration (increased pain, tachycardia, leukocytosis) - Continue IV fluids to maintain hydration and electrolyte balance - Monitor I/Os, abdominal girth Patient plan of care was discussed with attending physician, Dr. Gutierrez. Cliff Riggs DO PGY-1 Attending attestation patient examined with internal medicine team X-rays reviewed imaging studies reviewed laboratory data reviewed Recommendations are Placement of an NGT with patient with soft restraints to intermittent suction Repeat abdominal x-ray in the morning Agree with PPN Will follow the patient closely There is a lot of stool burden on the left side of the colon Once the ileus/small bowel obstruction resolves We will give the GoLytely to clean the colon out No invasive GI workup planned at the moment Thank you for the opportunity to participate in the care of this patient Time Spent With Patient Time: Total time spent is greater than 50% in coordination of care (as documented) at patient's floor/unit and/or counseling patient:
--- NOTE | 2024-12-22 19:07 | PC.NURSE ---
LUCAS ZHOU MADE AWARE PT HAD BLOOD IN URIOSTEGUI URIOSTEGUI CATHETER WAS ACCIDENTALLY PULLED, URIOSTEGUI CATHETER REINFORCED TO RIGHT LEG.
[2024-12-22] MEDS: ATORVASTATIN CALCIUM 20 MG TABLET 40 MG GT (20:27)
[2024-12-22] MEDS: ACETAMINOPHEN SOL 325 MG/10 ML UDC 650 MG GT (20:48)
[2024-12-23] VITALS (9 sets, daily range): BP systolic 109–133; BP diastolic 53–72; PULSE 73–88; RESP 19–97; TEMP 36–36.3; O2SAT 95–100
[2024-12-23] MEDS: SODIUM CHLORIDE RT SOL 0.9% 3 ML NEBU INH (01:40)
[2024-12-23] MEDS: LEVALBUTEROL RT 1.25 MG/0.5 ML NEBU INH ×3 (01:40→13:13)
[2024-12-23 05:51] LABS: Basophils # (Auto) 0.0 Thou/mm3 (0.0-0.2); Basophils % (Auto) 0 % (0-2.5); Eosinophils # (Auto) 0.1 Thou/mm3 (0.0-0.5); Eosinophils % (Auto) 1 % (0-10); Hematocrit 25.4 % (41.0-53.0); Immature Granulocytes Auto 0.04 Thou/mm3 (0.00-0.00); Lymphocytes # (Auto) 1.0 Thou/mm3 (1.0-4.8); Lymphocytes % (Auto) 21 % (10-50); Mean Corpuscular HGB Conc 33.1 g/dl (31.0-37.0); Mean Corpuscular Hemoglobin 30.3 pg (25.0-35.0); Mean Corpuscular Volume 92 fL (80-100); Monocytes # (Auto) 0.5 Thou/mm3 (0.0-0.8); Monocytes % (Auto) 9 % (0-12); Neutrophils # (Auto) 3.3 Thou/mm3 (1.8-7.7); Neutrophils % (Auto) 68 % (37-80); Nucleated Red Blood Cell # 0.00 Thou/mm3 (0.00-0.00); Nucleated Red Blood Cell % 0 /100 WBC (0); Platelet Count 437 Thou/mm3 (140-440); RDW Standard Deviation 51.0 fL (35.1-43.9); Red Blood Count 2.77 Miln/mm3 (4.50-5.90); White Blood Count 4.8 Thou/mm3 (3.8-10.6)
[2024-12-23 05:52] LABS: Hemoglobin 8.4 g/dL (13.5-16.0)
[2024-12-23 06:41] LABS: Alanine Aminotransferase 9 U/L (10-49); Albumin, Serum 2.4 gm/dL (3.4-4.8); Albumin/Globulin Ratio 0.9 (1.2-2.2); Alkaline Phosphatase 49 U/L (46-116); Anion Gap 8 (7-16); Aspartate Amino Transferase 16 U/L (0-34); BUN/Creatinine Ratio 33 Ratio (12-20); Bilirubin,Total 0.3 mg/dL (0.3-1.2); Blood Urea Nitrogen 13 mg/dL (9-23); Calcium 7.8 mg/dL (8.3-10.6); Calcium (Corrected) 9.1 mg/dL (8.5-10.1); Carbon Dioxide 20.2 mMol/L (20.0-31.0); Chloride 113 mMol/L (98-107); Creatinine (Component) 0.4 mg/dL (0.6-1.3); Estimated Creatinine Clearance 137.3 mL/min (>60); Globulin 2.6 gm/dL (2.3-3.5); Glucose 101 mg/dL (74-106); Magnesium 1.7 mg/dL (1.6-2.6); Osmolality,Calculated 281 (275-295); Phosphorous 3.1 mg/dL (2.4-5.1); Potassium 3.5 mMol/L (3.4-5.1); Sodium 141 mMol/L (136-145); Total Protein 5.0 gm/dL (5.7-8.2); eGFR > 60 See Note
[2024-12-23] MEDS: Magnesium Sulfate 4 GM Ivpb 4 GM/50 ML BAG IV (07:49)
[2024-12-23] MEDS: METOCLOPRAMIDE INJ 5 MG/ML VIAL 2 ML IVP (08:30)
[2024-12-23] MEDS: FENOFIBRATE 145 MG TABLET (NON-FORMULARY) GT (08:31)
[2024-12-23] MEDS: APIXABAN 2.5 MG TABLET 5 MG GT (08:31)
[2024-12-23] MEDS: ASPIRIN 81 MG CHEW GT (08:31)
[2024-12-23] MEDS: FAMOTIDINE 20 MG TABLET GT (08:32)
[2024-12-23] MEDS: DOXAZOSIN MESYLATE 1 MG TABLET GT (08:58)
--- NOTE | 2024-12-23 12:31 | PC.SS ---
Chair Mender (IRA) Evelyn notified by Dr. Barron that patient was ready for discharge. IRA contacted [facility] and spoke to admission coordinator, Susie who accepted patient. IRA notified patient's daughter, Meme via telephone call, IMM provided. IRA scheduled [facility] transportation for 1600. IRA notified bedside RNMisty.
--- NOTE | 2024-12-23 13:23 | PD.RESDS ---
Planned Discharge Date 12/23/24 DS: Providers Provider Date of admission: 12/07/24 22:12 Primary care physician: Fabian Rashid MD Admitting Provider: Kevin Pulido MD Attending Provider on Admission: Piedad Berger MD Consults: 12/08/24 08:00 Referral Registered Dietitian Routine Comment: pt is on PEG 12/10/24 09:37 Consult to General Surgery Routine Comment: SBO, wo resolution on small bowel series w contras Consulting Provider: Elizabeth Blandon 12/12/24 07:44 Consult to Gastroenterology Routine Comment: SBO Consulting Provider: Giuliano Gutierrez 12/12/24 10:20 Consult to Cardiology Routine Comment: Consulting Provider: Mati Albarran 12/20/24 09:44 Referral Registered Dietitian Routine Comment: Eval if patient needs CPN, tube feeds held Attending Provider on DC: Dariel Barron MD Discharging Provider: Cliff Riggs, DS: Diagnosis Problem List Completed Was Problem List Reviewed/Reconciled?: Yes Hospital Course Hospital Course Hospital course: 79-year-old male with a 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 He presented with hypoxia, hypotension, and leukocytosis, and was stabilized with IV fluids, broad-spectrum antibiotics (Zosyn and Doxycycline), and oxygen therapy. During hospitalization, he was noted to have persistent small bowel obstruction on serial imaging, with associated hypernatremia, abdominal distension, and eventual bloody NG output. He underwent exploratory laparotomy with resection of necrotic ileum and ileal-ileal anastomosis on 12/16/24. Post-operatively, he was closely monitored in telemetry. His abdominal pain improved, bowel function returned, and he was transitioned from NPO to trickle PEG feeds. PPN was discontinued after reaching goal feeds. Electrolyte abnormalities, including hypernatremia, hypophosphatemia, and hypomagnesemia, were corrected during admission. Right upper extremity swelling was evaluated with Doppler ultrasound and found negative for DVT. Anticoagulation with Eliquis, previously held due to concern for GI issues and planned surgery, was resumed post-operatively without complications. Patient tolerated increasing PEG feeds with no signs of feeding intolerance and resumed regular bowel movements. He was cleared for discharge on 12/23/24. Patient is medically and physically stable for discharge. 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 Follow up with general surgery in regards to your recent surgery in 2 week. Please take all your medications as prescribed, start taking metoclopramide 5 mg twice daily as per GI recs. Should any symptoms recur or worsen patient is instructed to return to the ED. Case discussed with my senior resident Dr. Shay Case discussed with my attending Dr. Anderson Riggs DO PGY 1 Time Spent with Patient Time attestation: Total time spent providing and/or coordinating discharge services: Time spent: Greater than 30 minutes Exam Vital Signs Temp Pulse Resp BP Pulse Ox O2 Del Method O2 Flow Rate 97.3 F 76 21 H 109/53 L 100 Room Air 2 12/23/24 12:00 12/23/24 13:14 12/23/24 13:14 12/23/24 12:00 12/23/24 13:14 12/23/24 12:00 12/23/24 12:00 Narrative Exam Physical Exam - General: Alert, somnolent but arousable - HEENT: Normocephalic, atraumatic, mucous membranes moist - Cardiovascular: Regular rate and rhythm, no murmurs - Respiratory: Diminished breath sounds bilaterally, no respiratory distress - Abdomen: Soft, mildly tender, non-distended, PEG tube in place - Neurologic: A&O x1, right facial droop and right-sided hemiplegia (chronic) - Extremities: Right upper extremity with mild edema, no erythema - Skin: Intact, no rash or ecchymoses Discharge Plan Plan Patient Disposition: Xfer Skilled Nsg Fac (SNF) Disposition Comment: [facility] Patient condition on transfer: Stable Care Plan Goals: Follow up with primary care physician within 1 week of discharge. Follow up with general surgery in regards to your recent surgery in 2 week. Please take all your medications as prescribed, start taking metoclopramide 5 mg twice daily as per GI recs. Should any symptoms recur or wosen patient is instructed to return to the ED. Prescriptions/Referrals Prescriptions/Med Rec: New metoclopramide HCl 5 mg/5 mL solution 5 mg feeding tube BID Qty: 473 0RF Continued atorvastatin [Lipitor] 80 mg Tablet 40 mg feeding tube QDAY fluconazole 200 mg tablet 200 mg feeding tube QDAY oxcarbazepine 300 mg tablet 300 mg feeding tube BID melatonin 3 mg Tablet 3 mg PO HS PRN (Reason: Insomnia) famotidine 20 mg tablet 20 mg feeding tube QDAY amlodipine 10 mg tablet 10 mg feeding tube QDAY Rx Instructions: hold if sbp <110 HR <60 docusate sodium 100 mg Tablet 100 mg PO QDAY Rx Instructions: give through feeding tube fenofibrate nanocrystallized 145 mg tablet 145 mg PO QDAY Rx Instructions: give via feeding tube Eliquis 5 mg tablet 5 mg feeding tube BID acetaminophen 325 mg/10.15 mL Solution 650 mg G-tube Q6HR PRN (Reason: Pain 1-10 Or Fever > 100.4) Qty: 1015 0RF doxazosin 1 mg tablet 1 mg PO QDAY pregabalin 20 mg/mL solution 20 mg PO BID Adults Multivitamin 18 mg iron-400 mcg-25 mcg tablet 1 tab PO QDAY aspirin 81 mg tablet 81 mg PO QDAY cranberry 500 mg capsule 500 mg PO QDAY Rx Instructions: administer with a meal ipratropium-albuterol 0.5 mg-3 mg(2.5 mg base)/3 mL solution for nebulization 3 ml inhalation Q6H PRN (Reason: shortness of breath or wheezing) tramadol 50 mg tablet 50 mg feeding tube Q6H PRN (Reason: pain) lidocaine HCl [Lidocaine Viscous] 2 % solution 15 ml PO Q4HR PRN (Reason: face pain from trigeminal neuralgia) Rx Instructions: apply 1 application to inside aspect of right cheek (buccal mucosa), focusing on the areas the patient reports pain Discontinued levofloxacin 250 mg/10 mL solution 500 mg PO Q24H 7 Days Qty: 140 0RF Referrals: Fabian Rashid MD [Primary Care Provider] - Patient/Caregiver Discharge Instructions Education Materials: Exploratory Laparotomy, Sepsis Print Language: [place]arag[place] Stand Alone Forms: [employer]ina Award Info., Patient Portal Info Letter Discharge Order Discharge Orders: Discharge (Routine); Ordered 12/23/24 Ordered By: Parth Shay Quality Discharge Quality Measures VTE prophylaxis Attestestation MD Attestation I have examined the patient, reviewed labs and imaging findings, discussed the case with the resident(s), and reviewed entered orders. I agree with the plan of care as outlined in this note. Time Spent: [address] Anderson MD
--- NOTE | 2024-12-23 16:54 | ESPR_ITS ---
Documentation for date of: 12/23/24 Subjective Subjective Interval history: Late entry for the note Case discussed with the internal medicine team Okay to discharge to be followed by the PCP Exam Vital Signs Temp Pulse Resp BP Pulse Ox O2 Del Method O2 Flow Rate 96.8 F 77 22 H 133/66 H 97 Room Air 2 12/23/24 15:42 12/23/24 15:42 12/23/24 15:42 12/23/24 15:42 12/23/24 15:42 12/23/24 15:42 12/23/24 12:00 Objective Labs 12/23/24 05:15 12/23/24 05:15 Labs: Laboratory Results - last 24 hr 12/23/24 05:15 WBC 4.8 RBC 2.77 L Hgb 8.4 L Hct 25.4 L MCV 92 MCH 30.3 MCHC 33.1 RDW Std Deviation 51.0 H Plt Count 437 D Neut % (Auto) 68 Lymph % (Auto) 21 [place] % (Auto) 9 Eos % (Auto) 1 Baso % (Auto) 0 Neut # (Auto) 3.3 Lymph # (Auto) 1.0 [place] # (Auto) 0.5 Eos # (Auto) 0.1 Baso # (Auto) 0.0 Immature Gran # (Auto) 0.04 H Absolute Nucleated RBC 0.00 Immature Gran % 1 H Nucleated RBC % 0 Sodium 141 Potassium 3.5 Chloride 113 H Carbon Dioxide 20.2 Anion Gap 8 BUN 13 Creatinine 0.4 L Estim Creat Clear Calc 137.3 eGFR > 60 BUN/Creatinine Ratio 33 H Glucose 101 Calculated Osmolality 281 Calcium 7.8 L Corrected Calcium 9.1 Phosphorus 3.1 Magnesium 1.7 Total Bilirubin 0.3 AST 16 ALT 9 L Alkaline Phosphatase 49 Total Protein 5.0 L Albumin 2.4 L Globulin 2.6 Albumin/Globulin Ratio 0.9 L Impressions Impression: Small bowel obstruction status post exploratory laparotomy small bowel resection and ileal ileal anastomosis doing well ABG Interpretation ABG results: 12/07/24 12/08/24 20:42 07:22 ABG pH 7.44 7.44 ABG pCO2 31 L 33 ABG pO2 68 L 88 D ABG HCO3 21 22 ABG O2 Saturation 95 98 ABG Base Excess -3 -1 Assessment & Plan A&P Narrative 79-year-old male with past medical history of cerebrovascular accident with residual right-sided weakness, aphasia, and dysphagia status post PEG tube placement, pulmonary embolism on Eliquis, GERD, hypertension, hyperlipidemia, and recurrent pneumonia admitted for septic shock likely due to hospital- acquired pneumonia/aspiration pneumonia. #Small Bowel Obstruction Abdominal X-rays and CT abdomen/pelvis showed persistent high-grade small bowel obstruction. NG tube remains unplaced. A 12 [place] NG tube was recommended by Dr. Gutierrez. According to nursing staff, an attempt was made; however, the patient poorly tolerated the procedure, developing coughing and oxygen desaturation during the attempt. Resistance was encountered at 45 cm. Plan - Initiate PPN due to continued NPO status and inability to tolerate NG placement - Change PEG tube drainage method to intermittent suction - Start Metoclopramide 5mg Q12HR - Continue close monitoring for signs of clinical deterioration (increased pain, tachycardia, leukocytosis) - Continue IV fluids to maintain hydration and electrolyte balance - Monitor I/Os, abdominal girth Patient plan of care was discussed with attending physician, Dr. Gutierrez. Cliff Riggs DO PGY-1 Attending attestation patient examined with internal medicine team X-rays reviewed imaging studies reviewed laboratory data reviewed Recommendations are Placement of an NGT with patient with soft restraints to intermittent suction Repeat abdominal x-ray in the morning Agree with PPN Will follow the patient closely There is a lot of stool burden on the left side of the colon Once the ileus/small bowel obstruction resolves We will give the GoLytely to clean the colon out No invasive GI workup planned at the moment Thank you for the opportunity to participate in the care of this patient Time Spent With Patient Time: Total time spent is greater than 50% in coordination of care (as documented) at patient's floor/unit and/or counseling patient:
== END 2024-12-23 16:00 | disposition skilled nursing facility (03) | DRG 853 ==
LOC: SERX 21:38 → SERHOLD 23:03 → S2NX 12-08 03:16
PROVIDERS: Student in an Organized Health Care Education/Training Program; Surgery; Admitting Provider Internal Medicine; Emergency Provider Emergency Medicine; PCP Hospitalist; Visit Provider Internal Medicine
PROC: 0D1B0ZB Bypass Ileum to Ileum, Open Approach (ICD-10-PCS; CPT 49000; principal; 2024-12-16 15:00)
DX: A41.9 Sepsis, unspecified organism (principal); J18.9 Pneumonia, unspecified organism; R65.21 Severe sepsis with septic shock; J69.0 Pneumonitis due to inhalation of food and vomit; J96.01 Acute respiratory failure with hypoxia; K55.029 Acute infarction of small intestine, extent unspecified; I48.92 Unspecified atrial flutter; K56.609 Unspecified intestinal obstruction, unspecified as to partial versus complete obstruction; E87.0 Hyperosmolality and hypernatremia; E87.20 Acidosis, unspecified; I69.351 Hemiplegia and hemiparesis following cerebral infarction affecting right dominant side; K56.7 Ileus, unspecified; K91.89 Other postprocedural complications and disorders of digestive system; N39.0 Urinary tract infection, site not specified; Z93.1 Gastrostomy status; I69.320 Aphasia following cerebral infarction; K21.9 Gastro-esophageal reflux disease without esophagitis; Y95 Nosocomial condition; E03.8 Other specified hypothyroidism; Z79.01 Long term (current) use of anticoagulants; Z86.711 Personal history of pulmonary embolism; Z66 Do not resuscitate; E87.6 Hypokalemia; E83.39 Other disorders of phosphorus metabolism; E83.42 Hypomagnesemia; E87.5 Hyperkalemia; I11.0 Hypertensive heart disease with heart failure; I48.91 Unspecified atrial fibrillation; I50.9 Heart failure, unspecified; I69.391 Dysphagia following cerebral infarction; K64.9 Unspecified hemorrhoids; N36.8 Other specified disorders of urethra; D64.9 Anemia, unspecified; E78.00 Pure hypercholesterolemia, unspecified; N40.0 Benign prostatic hyperplasia without lower urinary tract symptoms; Z74.01 Bed confinement status; Z78.1 Physical restraint status; Z79.82 Long term (current) use of aspirin; Z87.01 Personal history of pneumonia (recurrent)
CPT/HCPCS: 36415; 36600; 71045; 74018; 74177; 74250; 80048; 80053; 80061; 81001; 82150; 82248; 82271; 82803; 83605; 83690; 83735; 83880; 83935; 84100; 84132; 84145; 84295; 84439; 84443; 84478; 84484; 85014; 85018; 85025; 85379; 85610; 85652; 85730; 86140; 87040; 87081; 87086; 87205; 87400; 87811; 93005; 93306; 93971; 94640; 94667; 96365; 96366; 96375; A4217; A4649; J0330; J0612; J0692; J0694; J1100; J1171; J1644; J1815; J1885; J2250; J2405; J2470; J2543; J2704; J2765; J2919; J3010; J3373; J3475; J3480; J3490; J7030; J7050; J7070; J7120; J7999; Q9967; A9270

== ENCOUNTER 2024-12-31 10:37 | Outpatient (AMB) | payer OTHER, MEDICAID, SELFPAY ==
[2024-12-31 10:42] VITALS: BP 96/60; PULSE 93; RESP 18; TEMP 36.7; O2SAT 92; BMI 26.6
--- NOTE | 2024-12-31 10:42 | GSCOFFNT_ITS ---
Vital Signs - [facility] 12/31/24 10:42 Height 1.57 m Height Method Stated Weight 66.224 kg Weight Measurement Method Stated by Patient BMI 26.6 BP 96/60 Blood Pressure Source Automatic Cuff Blood Pressure Location Left Upper Arm Position Sitting Respiration 18 Pulse 93 Pulse Source Monitor Temp 98.1 F Temp Source Temporal Artery Scan Pulse Oximetry (%) 92 L Oxygen Delivery Method Room Air Med/Allergies Allergies & Medications Allergies No Known Allergies Allergy (Verified 12/31/24 10:43) Medication Reconciliation amlodipine 10 mg tablet 10 mg feeding tube QDAY 06/17/24 [History Confirmed 12/08/24] atorvastatin 80 mg tablet (Lipitor) 40 mg feeding tube QDAY 06/17/24 [History Confirmed 12/08/24] docusate sodium 100 mg tablet 100 mg PO QDAY 06/17/24 [History Confirmed ] famotidine 20 mg tablet 20 mg feeding tube QDAY 06/17/24 [History Confirmed 12/08/24] fenofibrate nanocrystallized 145 mg tablet 145 mg PO QDAY 06/17/24 [History Confirmed 12/08/24] fluconazole 200 mg tablet 200 mg feeding tube QDAY 06/17/24 [History Confirmed 12/08/24] melatonin 3 mg tablet 3 mg PO HS PRN Insomnia 06/17/24 [History Confirmed 12/08/24] oxcarbazepine 300 mg tablet 300 mg feeding tube BID 06/17/24 [History Confirmed 12/08/24] acetaminophen 325 mg/10.15 mL oral solution 650 mg (20.3 mL) G-tube Q6HR PRN Pain 1-10 Or Fever > 100.4 #1,015 mL 06/20/24 [Rx Confirmed 12/08/24] doxazosin 1 mg tablet 1 mg PO QDAY 10/19/24 [History Confirmed 12/08/24] pregabalin 20 mg/mL oral solution 20 mg PO BID 10/19/24 [History Confirmed 12/08/24] lidocaine HCl 2 % mucosal solution (Lidocaine Viscous) 15 ml PO Q4HR PRN face pain from trigeminal neuralgia 10/31/24 [History Confirmed 12/08/24] tramadol 50 mg tablet 50 mg feeding tube Q6H PRN pain 10/31/24 [History Confirmed 12/08/24] aspirin 81 mg tablet 81 mg PO QDAY 12/08/24 [History Confirmed 12/08/24] cranberry 500 mg capsule 500 mg PO QDAY 12/08/24 [History Confirmed 12/08/24] ipratropium 0.5 mg-albuterol 3 mg (2.5 mg base)/3 mL nebulization soln 3 ml inhalation Q6H PRN shortness of breath or wheezing 12/08/24 [History Confirmed 12/08/24] multivit with minerals-iron 18 mg-folic ac 400 mcg-vit K 25 mcg tablet (Adults Multivitamin) 1 tab PO QDAY 12/08/24 [History Confirmed 12/08/24] metoclopramide HCl 5 mg/5 mL oral solution 5 mg (5 mL) feeding tube BID #473 mL 12/23/24 [Rx] rivaroxaban 15 mg tablet (Xarelto) 15 mg PO QDAY 12/31/24 [History Confirmed 12/31/24] MA Intake Visit Data Collection New Patient or Established: Established Patient (seen at [facility] within 3 years) Seen by Clinical Staff ONLY (RN/MA): No Pain Present Currently: Yes Pain scale:: 5 Pain Scale Used: Ibrahim-Murillo/Numerical Consultant In [employer]gonom[employer] And Safety Required: Yes PCP or OBGYN visit in last 3 months: Yes Hx Now: No Do You Feel Safe at Home: Yes Authorities Contacted: N/A Smoking Status Smoking Status: Unknown if ever smoked Immunization / Flu Flu Vaccine in the Last 12 Months: No Flu Vaccine Exclusion Criteria: No Exclusion Criteria Past Medical History Past Medical History NEUROLOGIC: Positive Neurological Disorders and Cerebrovascular Accident (2x in 2023); Negative Seizures CARDIAC: Positive Hypercholesterolemia and Hypertension; Negative Cardiac Disorders or Congestive Heart Failure RESPIRATORY: Positive Asthma, Pneumonia and Pulmonary Embolism; Negative Chronic Obstructive Pulmonary Disease (COPD) GASTROINTESTINAL: Positive Gastroesophageal Reflux Disease; Negative Gastrointestinal Disorders GENITOURINARY: Negative Genitourinary Disorders or Renal Disease ENDOCRINE: Negative Endocrine Disorders, Diabetes Mellitus Type 1 or Diabetes Mellitus Type 2 HEMATOLOGIC: Negative Blood Disorders or Sickle Cell Disease OTHER HISTORY: Negative Blood Transfusions, Anesthesia Reactions or Cancer Surgical History SURGICAL: Positive Abdominal Surgery Social History SMOKING STATUS: Smoking status: Unknown if ever smoked SECOND HAND EXPOSURE: second hand exposure: No ALCOHOL: Alcohol Intake: Never HOUSING: Housing: [facility] LIVES WITH: Lives With: Staff-Care Providers HPI HPI Narrative 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 Pt was discharged to [facility] and per he has been doing well; he states he has some pain at the incision site but otherwise no complaints. He is receiving tramadol PRN and is tolerating tube feeds with no nausea/vomiting, and having regular BMs. states that he has had a colonoscopy in the past but is not sure when, and she states that he does not regularly follow up with a PCP ROS Review of Systems Systems Reviewed: All systems reviewed, normal except as documented Objective/Exam General General Appearance: alert, cooperative and well groomed Resp Respiratory exam: Absent respiratory distress Abdominal Abdominal exam: Present soft and incision (midline incision c/d/i, no erythema, michelle removed); Absent distention or tenderness Results Pathology of necrotic small bowel reviewed Assessment & Plan Diagnosis / Problem List (1) Small bowel obstruction: Status: Acute Assessment & Plan: 79M s/p laparotomy, small bowel resection with findings of a necrotic portion of bowel 12/16/24, recovering well overall. I recommended to pt's that he establish care with a PCP to make sure he is up to date with all surveillance including colonoscopy. All questions were answered and pt's family was encouraged to reach out with any concerns/questions Advanced Care Planning Advance care planning discussed with:: other Office Procedures GNS Level of Care Nursing/Assessment Patient Status: Established Patient Nursing Assessment/Reassesment: Medication Reconciliation and Vital Signs Coordination of Care: Complex Care and Chronic Disease 1-5, Consent,records obtained, informed consent, Education Simp Pt/Fam, Results/Orders obtained and Staff clarify orders Established Patient Charge Established Patient Point Assignment: 80 Established Patient Point Charge: EP Level 3 (80-115) Patient Portal Questionaires Social History Living Situation History Housing: [facility] Housing Other:: [facility] Tobacco History Smoking Status: Unknown if ever smoked Second Hand Smoke Exposure: No Alcohol History Alcohol Intake: Never Domestic Abuse History Do You Feel Safe at Home: Yes Review of Systems Report any current symptoms Only answer those that you have currently: Past Medical History Past Medical History Have you ever been diagnosed with any of the following: Neurological Problems Cerebrovascular Accident (CVA): Yes (2x in 2023) Seizures: No Cardiology Problems Hypercholesterolemia: Yes Congestive Heart Failure: No Hypertension: Yes Respiratory Problems Chronic Obstructive Pulmonary Disease (COPD): No Asthma: Yes Pneumonia: Yes Pulmonary Embolism: Yes Stomache/Intestinal Problems Gastroesophageal Reflux Disease: Yes Genital/Urinary Problems Renal Disease: No Endocrine Problems Diabetes Mellitus Type 1: No Diabetes Mellitus Type 2: No Blood Problems Sickle Cell Disease: No Other Problems Blood Transfusions: No Anesthesia Reactions: No Cancer: No
== END 2024-12-31 11:25 | disposition home or self-care (01) ==
LOC: HODSRG 10:37
PROVIDERS: PCP Hospitalist; Referring Provider Hospitalist; Supervising Provider Surgery; Visit Provider Surgery
DX: Z48.815 Encounter for surgical aftercare following surgery on the digestive system (principal); I10 Essential (primary) hypertension; E78.00 Pure hypercholesterolemia, unspecified; K21.9 Gastro-esophageal reflux disease without esophagitis; Z86.73 Personal history of transient ischemic attack (TIA), and cerebral infarction without residual deficits
CPT/HCPCS: 99213; G0463